=== PATIENT | female | born 1985 | race Caucasian/White ===

== ENCOUNTER 2019-05-16 18:54 | Emergency (ER) | payer MEDICAID, SELFPAY ==
[2019-05-16 19:10] VITALS: BP 116/72; PULSE 80; RESP 16; TEMP 36.9; O2SAT 99
--- NOTE | 2019-05-16 20:08 | ED.URI ---
HPI - URI/Sore Throat General Chief Complaint: Upper Respiratory Infection Stated Complaint: Poss Ear infection Source: patient and RN notes reviewed Mode of arrival: ambulatory Limitations: no limitations History of Present Illness HPI Narrative: 34 year old female who presents to [facility] with complaints of bilateral ear pain and rastafarian pain with nasal drainage for the past 3 weeks. Patient states that her ear pain has increased in intensity the past few days. Patient states that pain radiates from her ears to her bilateral temples at times, rates her pain 6/10 aching sensation. Patient denies any recent fevers chills or sweats, states does have history of sinus infections in the past and seasonal allergies. Patient states that she has been taking Mucinex for her symptoms with nasal drainage thin clear in color. Patient does admit to history of tobacco abuse of 1/2 ppd of cigarettes for past 25 years. MD elicited complaint: rhinorrhea, nasal congestion and other (ear pain) Pertinent past history: sinusitis and seasonal allergies Onset (ago): week(s) (3) Consistency: progressively worsening Severity: moderate Pain scale (0-10): 6 Description of mucous: clear Able to tolerate fluids by mouth: Yes Exacerbating factors: exertion and leaning forward Relieving factors: nothing Associated symptoms: rhinorrhea, nasal congestion, ear pain and other (temples bilaterally) Related Data Home Medications Medication Instructions Recorded Confirmed buspirone 10 mg PO BID 03/06/19 05/16/19 cetirizine [Zyrtec] 10 mg PO DAILY 03/06/19 05/16/19 escitalopram oxalate 20 mg PO DAILY 03/06/19 05/16/19 estradiol 2 mg PO DAILY 03/06/19 05/16/19 fluticasone propionate [Flonase 2 spray INTRANASAL DAILY 03/06/19 05/16/19 Allergy Relief] montelukast [Singulair] 10 mg PO DAILY 03/06/19 05/16/19 tamsulosin 0.4 mg PO EVERY OTHER DAY 03/06/19 05/16/19 Allergies Allergy/AdvReac Type Severity Reaction Status Date / Time latex Allergy Unknown RASH Verified 05/16/19 19:17 Review of Systems Review of Systems: Narrative: CONSTITUTIONAL: Denies recent fever, chills, or sweats. EYES: Denies visual changes, redness, or discharge. ENT positive rhinorrhea, congestion,no sore throat, bilateral otalgia. CARDIOVASCULAR: Denies chest pain, palpitations, or edema. RESPIRATORY: Denies cough or dyspnea. GASTROINTESTINAL: Denies abdominal pain, nausea, vomiting, or diarrhea. GENITOURINARY: Denies dysuria or hematuria. SKIN: Denies rash or itching. MUSCULOSKELETAL: Denies back pain, joint pain, or myalgia. NEUROLOGIC: rastafarian and frontal headache,no numbness, or weakness. PSYCHIATRIC:Positive anxiety denies depression. All systems reviewed & are unremarkable except as noted in HPI and below PMFSH Past Medical History Medical History (Updated 05/19/19 @ 15:53 by Lucrecia Watkins NP) Anxiety Bronchitis Seasonal allergies Sinusitis Urinary retention Surgical History Surgical History (Updated 05/19/19 @ 15:45 by Lucrecia Watkins NP) H/O tubal ligation H/O: hysterectomy S/P wisdom tooth extraction Social History Social History (Updated 05/19/19 @ 15:54 by Lucrecia Watkins NP) Smoking packs per day: 0.5 Smoking cigarettes per day: 10.0 Years smoked: 25 Smoking pack-years: 12.50 Smoking status: Current every day smoker Living arrangements: with family Gender identity (if verbalized by the patient): Female Comments At time of signature, agree with nursing past medical, surgical, social and family history. There is no relevant family history pertinent to the presenting complaint Exam Narrative: Exam Narrative: GENERAL: Well-appearing, well-nourished, and in no acute distress. HEAD: Normocephalic, atraumatic. EYES: PERRLA and EOMI. ENT: Nares red with clear rhinorrhea no epistaxis. Mucous membranes moist.Tm;s normal but with dull light reflex, throat pink with no lesions or exudate, no tonsil enlargement, post nasal drainage noted. ear pa
== END 2019-05-16 20:20 | disposition home or self-care (01) ==
PROVIDERS: Emergency Provider Registered Nurse
DX: J01.10 Acute frontal sinusitis, unspecified (principal); H92.03 Otalgia, bilateral; F17.210 Nicotine dependence, cigarettes, uncomplicated; F41.9 Anxiety disorder, unspecified
CPT/HCPCS: 99213; G0463

== ENCOUNTER 2019-07-02 19:43 | Emergency (ER) | payer OTHER, SELFPAY ==
[2019-07-02 20:05] VITALS: BP 111/72; PULSE 88; RESP 20; TEMP 36.8; O2SAT 100
--- NOTE | 2019-07-02 20:05 | ED.URI ---
HPI - URI/Sore Throat General Stated Complaint: sinus congestion Time Seen by Provider: 07/02/19 20:06 Source: patient History of Present Illness HPI Narrative: Patient here requesting a doctor's note. Patient states she missed the last 2 days due to her chronic sinusitis and bronchitis. Patient is here requesting a note to return to work tomorrow patient states she feels much better she is taken medication as prescribed for her chronic sinusitis and bronchitis. Patient denies any fever no shortness of breath and no chest pain no exposure to coronavirus and no recent travel. Patient does request a short spurts of prednisone for her chronic sinusitis. Related Data Home Medications Medication Instructions Recorded Confirmed buspirone 10 mg PO BID 03/06/19 05/16/19 cetirizine [Zyrtec] 10 mg PO DAILY 03/06/19 05/16/19 escitalopram oxalate 20 mg PO DAILY 03/06/19 05/16/19 estradiol 2 mg PO DAILY 03/06/19 05/16/19 fluticasone propionate [Flonase 2 spray INTRANASAL DAILY 03/06/19 05/16/19 Allergy Relief] montelukast [Singulair] 10 mg PO DAILY 03/06/19 05/16/19 tamsulosin 0.4 mg PO EVERY OTHER DAY 03/06/19 05/16/19 Allergies Allergy/AdvReac Type Severity Reaction Status Date / Time latex Allergy Unknown RASH Verified 05/16/19 19:17 Review of Systems Review of Systems: Narrative: CONSTITUTIONAL: Denies chills, or sweats. Reports fever and generalized body aches EYES: Denies visual changes, redness, or discharge. ENT: Denies otalgia. Reports nasal congestion runny nose and sore throat CARDIOVASCULAR: Denies chest pain, palpitations, or edema. RESPIRATORY: Denies dyspnea. Reports occasional cough GASTROINTESTINAL: Denies abdominal pain, nausea, vomiting, or diarrhea. GENITOURINARY: Denies dysuria or hematuria. SKIN: Denies rash or itching. MUSCULOSKELETAL: Denies back pain, joint pain, or myalgia. Reports generalized body aches NEUROLOGIC: Denies headache, numbness, or weakness. PSYCHIATRIC: Denies anxiety or depression. [facility] Past Medical History Medical History Anxiety Bronchitis Seasonal allergies Sinusitis Urinary retention Surgical History Surgical History H/O tubal ligation H/O: hysterectomy S/P wisdom tooth extraction Social History Social History Smoking packs per day: 0.5 Smoking cigarettes per day: 10.0 Years smoked: 25 Smoking pack-years: 12.50 Smoking status: Current every day smoker Gender identity (if verbalized by the patient): Female Comments At time of signature, agree with nursing past medical, surgical, social and family history. There is no relevant family history pertinent to the presenting complaint Exam Narrative: Exam Narrative: The patient is a well-developed, well-nourished in no acute distress. SKIN: Skin is warm and dry without erythema, swelling or exudate. There is good turgor. No tenting. HEAD: Atraumatic. Normocephalic. No temporal or scalp tenderness. EYES: Moist and bright. Sclera and conjunctivae normal. No discharge. PERRLA. Extraocular motions intact. Gross visual acuity intact. EARS: Pinna is normal shape and contour. Clear external auditory canals. TM pearly manning with good cone of light, no erythema or suppuration. Bilateral cerumen noted no gross hearing deficit. NOSE: pink, moist mucosa with good air movement. Clear rhinorrhea without nasal flaring. Septum midline. Mouth: moist mucous membranes. THROAT; mild erythema noted to posterior oropharynx with moderate postnasal drainage. Without exudate or ulceration.. Uvula midline. Normal movement of soft palate. NECK: Supple and nontender with full range of motion without discomfort. No meningeal signs. LUNGS: Equal and bilateral breath sounds without wheezes, rales or rhonchi. CHEST: The chest wall is without retractions or use of accessory muscles. H
== END 2019-07-02 20:15 | disposition home or self-care (01) ==
PROVIDERS: Emergency Provider Nurse Practitioner Family
DX: J06.9 Acute upper respiratory infection, unspecified (principal); F41.9 Anxiety disorder, unspecified; F17.210 Nicotine dependence, cigarettes, uncomplicated
CPT/HCPCS: 99213; G0463

== ENCOUNTER → 2021-05-04 16:49 | Outpatient (CLI) | payer OTHER, SELFPAY ==
--- NOTE | ~2021-05-04 | XR_ITS ---
EXAMINATION: XR chest 2V DATE: 05/04/2021 17:08 INDICATION: Pneumonia. Mid back pain. Chest tightness. TECHNIQUE: Frontal and lateral views of the chest were obtained. COMPARISON: None. FINDINGS: The chest demonstrates clear lungs without pneumonia, pleural effusion, or pneumothorax. Th e heart size is normal. IMPRESSION: 1. No acute cardiopulmonary disease. Reviewed, dictated and finalized at location A. MANAGER
== END ==
PROVIDERS: PCP Nurse Practitioner Family; Visit Provider Nurse Practitioner Family
DX: J18.9 Pneumonia, unspecified organism (principal)
CPT/HCPCS: 71046

== ENCOUNTER 2021-07-17 16:12 | Emergency (ER) | payer OTHER, SELFPAY ==
--- NOTE | 2021-07-17 16:14 | ED.SKABFB ---
HPI - Skin/Abscess/Foreign Bdy General Chief complaint: Skin/Abscess/Foreign Body Stated complaint: shingles Time Seen by Provider: 07/17/21 16:14 Source: patient and RN notes reviewed History of Present Illness HPI narrative: Patient is a 36-year-old female who presents the urgent care with complaints of a painful shingles rash to the left arm. Patient states that she has had shingles multiple times in the past and the Valtrex does seem to cleared up. Patient has not used anything [id number] for her symptoms. States that she just noted the rash today after having some itching to the arm. No other acute complaints. No acute distress noted. Patient aware of the plan of care. Some parts of this dictation were generated by voice recognition software and may contain typographical and/or grammatical inaccuracies. Related Data Home Medications Medication Instructions Recorded Confirmed buspirone 10 mg PO BID 03/06/19 07/17/21 cetirizine [Zyrtec] 10 mg PO DAILY 03/06/19 07/17/21 escitalopram oxalate 20 mg PO DAILY 03/06/19 07/17/21 estradiol 2 mg PO DAILY 03/06/19 07/17/21 fluticasone propionate [Flonase 2 spray INTRANASAL DAILY 03/06/19 07/17/21 Allergy Relief] montelukast [Singulair] 10 mg PO DAILY 03/06/19 07/17/21 tamsulosin 0.4 mg PO EVERY OTHER DAY 03/06/19 07/17/21 Allergies Allergy/AdvReac Type Severity Reaction Status Date / Time latex Allergy Unknown RASH Verified 07/17/21 16:29 Review of Systems Review of Systems: CONSTITUTIONAL: Denies fever, chills, or sweats. EYES: Denies visual changes, redness, or discharge. ENT: Denies rhinorrhea, congestion, sore throat, or otalgia. CARDIOVASCULAR: Denies chest pain, palpitations, or edema. RESPIRATORY: Denies cough or dyspnea. GASTROINTESTINAL: Denies abdominal pain, nausea, vomiting, or diarrhea. GENITOURINARY: Denies dysuria or hematuria. SKIN: Reports of a painful itchy shingles rash to the left arm MUSCULOSKELETAL: Denies back pain, joint pain, or myalgia. NEUROLOGIC: Denies headache, numbness, or weakness. All other systems reviewed are negative, except as documented in HPI. [facility] Past Medical History Medical History (Updated 07/17/21 @ 16:36 by EMERSON Huang) Anxiety Bronchitis Seasonal allergies Sinusitis Urinary retention Surgical History Surgical History H/O tubal ligation H/O: hysterectomy S/P wisdom tooth extraction Social History Social History Smoking packs per day: 0.5 Smoking cigarettes per day: 10.0 Years smoked: 25 Smoking pack-years: 12.50 Smoking status: Current every day smoker Gender identity (if verbalized by the patient): Female Comments At the time of my signature, I reviewed and agree with the nursing past medical, surgical, social, and family history. There is no relevant family history pertinent to the patient complaint. Exam Narrative: GENERAL: This is a well-nourished, well-developed patient, in no apparent distress. HEAD: normocephalic, atraumatic. EYES: PERRL. Sclera clear/white. Vision is grossly intact. EARS: External ears normal NOSE: External nose normal with no obvious nasal discharge, nares without redness, no rhinorrhea. THROAT: Mucous membranes moist NECK: Neck supple CARDIOVASCULAR: Regular rate and rhythm without murmurs, gallops, or rubs. RESPIRATORY: Clear to auscultation. Breath sounds equal bilaterally. No wheezes, rales, or rhonchi. SKIN: Linear track of mildly erythemic vesicular lesions to the left arm consistent with herpes zoster NEURO: awake, alert, and oriented to person, place and time. There were no obvious focal neurologic abnormalities. EXTREMITIES: No clubbing, cyanosis, or edema. Course Course Level of Care: Express Care Visit Vital Signs Vital signs: Vital Signs Temperature 97.6 F 07/17/21 16:22 Pulse Rate 85 07/17/21 16:22 Respiratory Rate 1
[2021-07-17 16:22] VITALS: BP 121/68; PULSE 85; RESP 16; TEMP 36.4; O2SAT 98
[2021-07-17 16:24] VITALS: BP 121/68; PULSE 85; RESP 16; TEMP 36.4; O2SAT 98
== END 2021-07-17 16:40 | disposition home or self-care (01) ==
PROVIDERS: Emergency Provider Nurse Practitioner Family; PCP Nurse Practitioner Family
DX: B02.9 Zoster without complications (principal); F17.210 Nicotine dependence, cigarettes, uncomplicated; F41.9 Anxiety disorder, unspecified
CPT/HCPCS: 99213; G0463

== ENCOUNTER 2021-10-31 18:51 | Emergency (ER) | payer OTHER, SELFPAY ==
[2021-10-31 19:02] VITALS: BP 111/68; PULSE 58; RESP 16; TEMP 36.4; O2SAT 100
--- NOTE | 2021-10-31 19:09 | ED.FEMALEGU ---
HPI - Female Genitourinary General Chief complaint: Urogenital-Female Stated complaint: Back pain near kidney location. Time Seen by Provider: 10/31/21 19:10 Source: patient and RN notes reviewed Mode of arrival: ambulatory Limitations: no limitations History of Present Illness HPI Narrative: 36-year-old female presents concern for 3-day history of bilateral flank pain, general malaise, sweats that is progressively worsening. She has a history of urine retention for which she has a neurostimulator to stimulate her pelvic floor. She also reports that she occasionally has to cath herself, she caths herself last night. She reports a history of pyelonephritis, for which she has similar symptoms. MD elicited complaint: UTI Related Data Home Medications Medication Instructions Recorded Confirmed cetirizine 10 mg capsule (Zyrtec) 10 mg PO DAILY 03/06/19 10/31/21 escitalopram oxalate 20 mg tablet 20 mg PO DAILY 03/06/19 10/31/21 estradiol 2 mg tablet 2 mg PO DAILY 03/06/19 10/31/21 fluticasone propionate 50 2 spray intranasal DAILY 03/06/19 07/17/21 mcg/actuation nasal spray,suspension (Flonase Allergy Relief) montelukast 10 mg tablet 10 mg PO DAILY 03/06/19 10/31/21 (Singulair) tamsulosin 0.4 mg capsule 0.4 mg PO EVERY OTHER DAY 03/06/19 07/17/21 Allergies Allergy/AdvReac Type Severity Reaction Status Date / Time latex Allergy Unknown RASH Verified 07/17/21 16:29 Review of Systems Review of Systems: CONSTITUTIONAL: Reports malaise, sweats. Denies chills or fever. CARDIOVASCULAR: Denies chest pain, palpitations, or edema. RESPIRATORY: Denies cough or dyspnea. GASTROINTESTINAL: Denies abdominal pain, nausea, vomiting, diarrhea GENITOURINARY: Reports dysuria, frequency, urgency, suprapubic pressure, hematuria. Reports bilateral flank pain SKIN: Denies rash or itching. MUSCULOSKELETAL: Denies back pain or myalgia. All systems reviewed & are unremarkable except as noted in HPI and below PMFSH Past Medical History Medical History (Updated 10/31/21 @ 19:26 by Radha Singh NP) Anxiety Bronchitis Seasonal allergies Sinusitis Urinary retention Surgical History Surgical History H/O tubal ligation H/O: hysterectomy S/P wisdom tooth extraction Social History Social History Smoking packs per day: 0.5 Smoking cigarettes per day: 10.0 Years smoked: 25 Smoking pack-years: 12.50 Smoking status: Current every day smoker Gender identity (if verbalized by the patient): Female Comments At time of signature, agree with nursing past medical, surgical, social and family history. There is no relevant family history pertinent to the presenting complaint Exam Narrative: GENERAL: Nontoxic appearing and in no acute distress. HEAD: Normocephalic. EYES: PERRLA, conjunctivae clear. NECK: Supple. No lymphadenopathy CHEST: Clear to auscultation. No respiratory distress. HEART: Regular rate and rhythm. ABDOMEN: Soft, nontender upon palpation, nondistended, normal active bowel sounds, no palpable or pulsatile masses, no guarding. BilateralCVA tenderness SKIN: Warm, dry, no rash. NEURO: Alert and oriented x3. PSYCH: Normal mood and affect Course Course Emergency Course: Based on patient's history, presentation, symptoms we will treat pending culture Patient is aware of diagnosis, understands and agrees to treatment plan. Anticipatory guidance given. Patient agrees to follow-up as directed and is aware of reasons to seek care at the emergency department. Portions of this record may have been created with voice recognition software Level of Care: Express Care Visit Vital Signs Vital signs: Reviewed. MDM - Female Genitourinary MDM Narrative Medical decision making narrative: Exam findings and UA show no acute concerns or changes; patient is non-toxic appearing and is in no distress. Patien
== END 2021-10-31 19:36 | disposition home or self-care (01) ==
PROVIDERS: Emergency Provider Nurse Practitioner; PCP Nurse Practitioner Family
DX: R10.9 Unspecified abdominal pain (principal); F41.9 Anxiety disorder, unspecified; F17.210 Nicotine dependence, cigarettes, uncomplicated
CPT/HCPCS: 81003; 87086; 99213; G0463

== ENCOUNTER 2022-03-03 19:00 | Emergency (ER) | payer OTHER, SELFPAY ==
[2022-03-03 19:03] VITALS: BP 116/73; PULSE 77; RESP 14; TEMP 37.7; O2SAT 99
--- NOTE | 2022-03-03 19:22 | ED.URI ---
HPI - URI/Sore Throat General Chief Complaint: Upper Respiratory Infection Stated Complaint: Sinus infection Time Seen by Provider: 03/03/22 19:12 Source: patient Mode of arrival: ambulatory Limitations: no limitations History of Present Illness HPI Narrative: Patient presents today with 2 week history of nasal congestion and sinus pressure, postnasal drip, bilateral ear pressure, fatigue, cough. Denies shortness of breath or fever. She is taking Zyrtec, Benadryl, and Mucinex with mild relief. Denies a history of asthma or COPD. Smokes 1 pack per day. She has had her vaccine for COVID-19 and influenza. Related Data Home Medications Medication Instructions Recorded Confirmed cetirizine 10 mg capsule (Zyrtec) 10 mg PO DAILY 03/06/19 03/03/22 escitalopram oxalate 20 mg tablet 20 mg PO DAILY 03/06/19 03/03/22 estradiol 2 mg tablet 2 mg PO DAILY 03/06/19 03/03/22 fluticasone propionate 50 2 spray intranasal DAILY 03/06/19 03/03/22 mcg/actuation nasal spray,suspension (Flonase Allergy Relief) montelukast 10 mg tablet 10 mg PO DAILY 03/06/19 03/03/22 (Singulair) aripiprazole 5 mg tablet 5 mg PO DAILY 03/03/22 03/03/22 Allergies Allergy/AdvReac Type Severity Reaction Status Date / Time latex Allergy Unknown RASH Verified 03/03/22 19:05 Review of Systems Review of Systems: CONSTITUTIONAL: Denies body aches, fever, chills, or sweats.+ fatigue EYES: Denies visual changes, redness, or discharge. ENT: Denies rhinorrhea, sore throat. + nasal congestion and sinus pressure, postnasal drip, bilateral ear pressure CARDIOVASCULAR: Denies chest pain, palpitations, or edema. RESPIRATORY: Denies dyspnea.+ cough GASTROINTESTINAL: Denies abdominal pain, nausea, vomiting, or diarrhea. GENITOURINARY: Denies dysuria or hematuria. SKIN: Denies rash, itching, or wounds. MUSCULOSKELETAL: Denies back pain, joint pain, or myalgia. NEUROLOGIC: Denies headache, numbness, tingling, or weakness. PSYCH: Denies depression or anxiety. [facility] Past Medical History Medical History (Updated 03/03/22 @ 19:25 by Yana Muhammad SITE SURVEYOR, ) Anxiety Bronchitis Seasonal allergies Sinusitis Urinary retention Surgical History Surgical History H/O tubal ligation H/O: hysterectomy S/P wisdom tooth extraction Social History Social History Smoking packs per day: 0.5 Smoking cigarettes per day: 10.0 Years smoked: 25 Smoking pack-years: 12.50 Smoking status: Current every day smoker Gender identity (if verbalized by the patient): Female Comments At time of signature, I have reviewed and agree with nursing past medical, surgical, social and family history unless otherwise noted. Please see nursing chart for further information. There is no relevant family history pertinent to the presenting complaint Exam Narrative: GENERAL: Mildly ill-appearing, well-nourished, and in no acute distress. HEAD: Normocephalic, atraumatic. EYES: EOMI. No redness or drainage. Conjunctivae normal. ENT: Mucous membranes pink and moist. Nares congested. Left frontal and bilateral maxillary sinus tenderness. No rhinorrhea. TMs normal bilaterally. Throat normal. Uvula midline. NECK: Normal AROM. Supple. No lymphadenopathy. CHEST: No respiratory distress. Clear to auscultation. HEART: Regular rate and rhythm. No murmur appreciated. Normal peripheral pulses. EXTREMITIES: Normal range of motion. No edema. SKIN: Warm, dry, no rash. Capillary refill normal. Normal skin turgor. NEURO: No focal deficits. Alert and oriented x3. Gait steady. PSYCH: Normal affect. No signs of depression or anxiety. Course Course Level of Care: Express Care Visit Vital Signs Vital signs: Vital Signs Temperature 99.9 F H 03/03/22 19:03 Pulse Rate 77 03/03/22 19:03 Respiratory Rate 14 03/03/22 19:03 Blood Pressure 116/73
[2022-03-03 19:23] VITALS: BP 116/73; PULSE 77; RESP 14; TEMP 37.7; O2SAT 99
== END 2022-03-03 19:30 | disposition home or self-care (01) ==
PROVIDERS: Emergency Provider Nurse Practitioner; PCP Nurse Practitioner Family
DX: J01.90 Acute sinusitis, unspecified (principal); J20.9 Acute bronchitis, unspecified; F17.210 Nicotine dependence, cigarettes, uncomplicated; F41.9 Anxiety disorder, unspecified
CPT/HCPCS: 99213; G0463

== ENCOUNTER 2022-06-06 17:58 | Emergency (ER) | payer OTHER, SELFPAY ==
[2022-06-06 18:02] VITALS: BP 105/62; PULSE 65; RESP 16; TEMP 36.6; O2SAT 97
--- NOTE | 2022-06-06 19:15 | ED.URI ---
HPI - URI/Sore Throat General Chief Complaint: Upper Respiratory Infection Stated Complaint: Eye Problem Time Seen by Provider: 06/06/22 19:02 Source: patient, RN notes reviewed and old records reviewed Mode of arrival: ambulatory Limitations: no limitations History of Present Illness HPI Narrative: 37-year-old female presents to Express Care is a complaints of crusty itchy eyes, with discharge and irritation for 2 week duration. Patient was diagnosed with strep throat on the 20 of May and eyes have been irritated with drainage and itching since but reports that drainage has improved. Patient denies any visual changes any redness around eyes or any sinus congestion or runny nose or any fevers. Patient reports that she completed all doses of antibiotic for strep and she takes daily Singulair and Zyrtec. MD elicited complaint: other (eyes itching with discharge and irritaion) Onset (ago): week(s) (2) Related Data Home Medications Medication Instructions Recorded Confirmed cetirizine 10 mg capsule (Zyrtec) 10 mg PO DAILY 03/06/19 06/06/22 montelukast 10 mg tablet 10 mg PO DAILY 03/06/19 06/06/22 (Singulair) Allergies Allergy/AdvReac Type Severity Reaction Status Date / Time latex Allergy Unknown RASH Verified 06/06/22 18:29 Review of Systems Review of Systems: CONSTITUTIONAL: Denies fever, chills, or sweats. EYES: Denies visual changes. Reports redness,, irritation, discharge to bilateral eyes with itching ENT: Denies rhinorrhea, congestion, sore throat, or otalgia. CARDIOVASCULAR: Denies chest pain, palpitations, or edema. RESPIRATORY: Denies cough or dyspnea. SKIN: Denies rash or itching. NEUROLOGIC: Denies headache All systems reviewed & are unremarkable except as noted in HPI and below PMFSH Past Medical History Medical History (Updated 06/08/22 @ 08:56 by Lucrecia Watkins NP) Anxiety Bronchitis Seasonal allergies Sinusitis Urinary retention Surgical History Surgical History H/O tubal ligation H/O: hysterectomy S/P wisdom tooth extraction Social History Social History Smoking packs per day: 0.5 Smoking cigarettes per day: 10.0 Years smoked: 25 Smoking pack-years: 12.50 Smoking status: Current every day smoker Living arrangements: with family Gender identity (if verbalized by the patient): Female Comments At time of signature, agree with nursing past medical, surgical, social and family history. There is no relevant family history pertinent to the presenting complaint Exam Narrative: GENERAL: Well-appearing, well-nourished, and in no acute distress. HEAD: Normocephalic, atraumatic. EYES: PERRLA and EOMI. Upper and lower eyelids unremarkable. No periorbital cellulitis noted. Sclera and conjunctivae mildly injected, reports itching, crusting ENT: Nares clear, no rhinorrhea or epistaxis. Mucous membranes moist. TM's normal with good light reflex, throat pink with no lesions or swelling. NECK: Supple.no lymphadenopathy CHEST: Clear to auscultation. No respiratory distress.SAO2 97% on room air HEART: Regular rate and rhythm. No murmur heard. Normal peripheral pulses. SKIN: Warm, dry, no rash. NEURO: No focal deficits. Alert and oriented x3. Course Course Emergency Course: Patient is aware of diagnosis, understands and agrees to treatment plan. Anticipatory guidance given. Patient agrees to follow-up as directed and is aware of reasons to seek care at the emergency department. Portions of this record may have been created with voice recognition software Level of Care: Express Care Visit Vital Signs Vital signs: Vital Signs Temperature 36.6 C 06/06/22 18:02 Pulse Rate 65 06/06/22 18:02 Respiratory Rate 16 06/06/22 18:02 Blood Pressure 105/62 06/06/22 18:02 Pulse Oximetry 97 06/06/22 18:02 Oxygen Delivery Room Air 06/06/22 18:02
== END 2022-06-06 19:47 | disposition home or self-care (01) ==
PROVIDERS: Emergency Provider Registered Nurse; PCP Nurse Practitioner Family
DX: H10.9 Unspecified conjunctivitis (principal); F17.210 Nicotine dependence, cigarettes, uncomplicated
CPT/HCPCS: 99213; G0463

== ENCOUNTER 2023-01-16 18:11 | Emergency (ER) | payer OTHER, SELFPAY ==
[2023-01-16 18:41] VITALS: BP 120/70; PULSE 60; RESP 16; TEMP 36.4; O2SAT 97
--- NOTE | 2023-01-16 19:49 | ED.FEMALEGU ---
HPI - Female Genitourinary General Chief complaint: Urogenital-Female Stated complaint: Flank Pain/Urinary Problem Time Seen by Provider: 01/16/23 19:49 Source: patient, RN notes reviewed and old records reviewed Mode of arrival: ambulatory Limitations: no limitations History of Present Illness HPI Narrative: 37 year old female presents to express care with complaints of left flank pain and urinary burning and frequency since this morning. Patient has history of urinary retention and has 'blader pacemaker' implant. Patient reports that she has history of Pyelonephritis in the past also history of past UTI's. Patient voices no vaginal discharge or concern for STD's Patient has taken Ibuproen with minimal decrease in her discomfort. MD elicited complaint: UTI Pertinent past history: pyelonephritis and other (UTI, has interstime ) Onset (ago): day(s) (1) Severity: moderate Severity scale (1-10): 5 Quality of pain: aching Vaginal discharge: none Vaginal bleeding: none Related Data Home Medications Medication Instructions Recorded Confirmed cetirizine 10 mg capsule (Zyrtec) 10 mg PO DAILY 03/06/19 06/06/22 montelukast 10 mg tablet 10 mg PO DAILY 03/06/19 06/06/22 (Singulair) atorvastatin 10 mg tablet mg 01/16/23 escitalopram oxalate 20 mg tablet mg 01/16/23 estradiol 2 mg tablet mg 01/16/23 ibuprofen 800 mg tablet mg 01/16/23 lamotrigine 25 mg tablet mg 01/16/23 tramadol 50 mg tablet mg 01/16/23 trazodone 50 mg tablet mg 01/16/23 Allergies Allergy/AdvReac Type Severity Reaction Status Date / Time latex Allergy Unknown RASH Verified 06/06/22 18:29 Review of Systems Review of Systems: CONSTITUTIONAL: Denies fever, chills, or sweats. CARDIOVASCULAR: Denies chest pain, palpitations, or edema. RESPIRATORY: Denies cough or dyspnea. GASTROINTESTINAL: Denies abdominal pain, nausea, vomiting, or diarrhea. GENITOURINARY: Reports dysuria, frequency, urgency. reports left flank pain no visible hematuria. SKIN: Denies rash or itching. MUSCULOSKELETAL: Denies back pain or myalgia. Reports left CVA tenderness NEUROLOGIC: Denies headache All systems reviewed & are unremarkable except as noted in HPI and below [facility] Past Medical History Medical History Anxiety Bronchitis Pyelonephritis Seasonal allergies Sinusitis Urinary retention Surgical History Surgical History H/O tubal ligation H/O: hysterectomy S/P wisdom tooth extraction Social History Social History Smoking packs per day: 0.5 Smoking cigarettes per day: 10.0 Years smoked: 25 Smoking pack-years: 12.50 Smoking status: Current every day smoker Living arrangements: with family Gender identity (if verbalized by the patient): Female Comments At time of signature, agree with nursing past medical, surgical, social and family history. There is no relevant family history pertinent to the presenting complaint Exam Narrative: GENERAL: Well-appearing, well-nourished, and in no acute distress. HEAD: Normocephalic, atraumatic. NECK: Supple.no lymphadenopathy CHEST: Clear to auscultation. No respiratory distress.SAO2 97% on room air HEART: Regular rate and rhythm. No murmur heard. Normal peripheral pulses. ABDOMEN: Soft, nontender, nondistended, normal active bowel sounds. Left CVA tenderness urinary burning and frequency EXTREMITIES: Normal range of motion. No edema. SKIN: Warm, dry, no rash. NEURO: No focal deficits. Alert and oriented x3. Course Course Emergency Course: Patient is aware of diagnosis, understands and agrees to treatment plan.? Anticipatory guidance given.? Patient agrees to follow-up as directed and is aware of reasons to seek care at the emergency department. Portions of this record may have been created with voice recognition software Level of Care: E
== END 2023-01-16 20:23 | disposition home or self-care (01) ==
PROVIDERS: Emergency Provider Registered Nurse; PCP Nurse Practitioner Family
DX: R10.9 Unspecified abdominal pain (principal); R30.0 Dysuria; F17.210 Nicotine dependence, cigarettes, uncomplicated
CPT/HCPCS: 81003; 87086; 99213; G0463

== ENCOUNTER 2023-06-27 08:26 | Emergency (ER) | payer OTHER, SELFPAY ==
[2023-06-27 08:33] VITALS: BP 111/70; PULSE 95; RESP 16; TEMP 37.2; O2SAT 98
--- NOTE | 2023-06-27 09:18 | ED.SKABFB ---
HPI - Skin/Abscess/Foreign Bdy General Chief complaint: Skin/Abscess/Foreign Body Stated complaint: alergic reaction/hives Time Seen by Provider: 06/27/23 09:18 Source: patient, RN notes reviewed and old records reviewed Mode of arrival: ambulatory Limitations: no limitations History of Present Illness HPI narrative: 38 year old female who [facility] care with complaints of generalized itchy rash especially to her lower extremities since yesterday.Patient reports that she thinks it could be an allergic reaction to either Ampicillin or Vancomycin she received a week ago IV for 24 hours when when had a replacement surgery for inner stem neurostimulator at [facility] for pelvic floor failure. Patient reports that she has not had any other new medications orally or any new foods, soaps, laundry products or lotions. Patient reports that she has been taking Benadryl,Zyrtec and is on daily Singulair. Patient reports that she has no difficulty with swallowing or with her breathing,SAO2 98% on room air. MD complaint: rash Onset (ago): day(s) (day 2) Severity: moderate Quality: pruritic Treatments prior to arrival: Benadryl and other (Zyrtec and singulair) Related Data Home Medications Medication Instructions Recorded Confirmed montelukast 10 mg tablet 10 mg PO DAILY 03/06/19 06/27/23 (Singulair) atorvastatin 10 mg tablet 10 mg PO DAILY 01/16/23 06/27/23 lamotrigine 25 mg tablet 25 mg PO BID 01/16/23 06/27/23 trazodone 50 mg tablet 50 mg PO HS 01/16/23 06/27/23 cyclobenzaprine 5 mg tablet 5 mg PO Q6-8H PRN Muscle Pain 06/27/23 06/27/23 meloxicam 15 mg tablet mg 06/27/23 Allergies Allergy/AdvReac Type Severity Reaction Status Date / Time latex Allergy Unknown RASH Verified 06/06/22 18:29 Review of Systems Review of Systems: CONSTITUTIONAL: Denies fever, chills, or sweats. CARDIOVASCULAR: Denies chest pain, palpitations, or edema. RESPIRATORY: Denies cough or dyspnea. SKIN: Reports small red raised rash generalized rash to lower extremities and to her forearms which is itchy MUSCULOSKELETAL: Denies joint pain or myalgia. NEUROLOGIC: Denies headache, numbness, or weakness. All systems reviewed & are unremarkable except as noted in HPI and below PMFSH Past Medical History Medical History (Updated 06/28/23 @ 08:45 by Lucrecia Watkins NP) Anxiety Bronchitis Pelvic floor dysfunction in female Presence of neurostimulator Pyelonephritis Seasonal allergies Sinusitis Urinary retention Surgical History Surgical History H/O tubal ligation H/O: hysterectomy S/P wisdom tooth extraction Social History Social History (Updated 06/28/23 @ 08:37 by Lucrecia Watkins NP) Smoking packs per day: 0.5 Smoking cigarettes per day: 10.0 Years smoked: 25 Smoking pack-years: 12.50 Smoking status: Current every day smoker Tobacco type: cigarettes and e-cigarettes/vaping Additional smoking assessment comments: now vapes Living arrangements: with family Gender identity (if verbalized by the patient): Female Comments At time of signature, agree with nursing past medical, surgical, social and family history. There is no relevant family history pertinent to the presenting complaint Exam Narrative: GENERAL: Well-appearing, well-nourished, and in no acute distress. HEAD: Normocephalic, atraumatic. EYES: PERRLA, conjunctivae clear, and EOMI. ENT: Mucous membranes moist. Oropharynx without edema, erythema or lesions. NECK: Supple. No lymphadenopathy CHEST: Clear to auscultation. No respiratory distress.SAO2 98% on room air, no tachypnea HEART: Regular rate and rhythm. SKIN: Warm, dry.? Patches of red raised rash especially to lower extremities and on arms which is itchy NEURO:? Alert and oriented x3. PSYCH: Normal mood and affect, anxious Course Course Emergency Course: Patient is aware of diagnosis, understands and agrees to t
[2023-06-27] MEDS: methylPREDNISolone ACETATE 80 MG/ML VIAL IM (09:32)
== END 2023-06-27 09:55 | disposition home or self-care (01) ==
PROVIDERS: Emergency Provider Registered Nurse; PCP Nurse Practitioner Family
DX: T78.40XA Allergy, unspecified, initial encounter (principal); F17.210 Nicotine dependence, cigarettes, uncomplicated; Z79.899 Other long term (current) drug therapy; Z79.1 Long term (current) use of non-steroidal anti-inflammatories (NSAID)
CPT/HCPCS: 96372; 99213; G0463; J1040

== ENCOUNTER 2024-01-20 13:35 | Emergency (ER) | payer OTHER, SELFPAY ==
[2024-01-20 13:40] VITALS: BP 121/77; PULSE 79; RESP 18; TEMP 36.8; O2SAT 98
--- NOTE | 2024-01-20 13:53 | ED.URI ---
HPI - URI/Sore Throat General Chief Complaint: Upper Respiratory Infection Stated Complaint: Ear Pain/Sore Throat/Congestion Time Seen by Provider: 01/20/24 13:52 Source: patient, RN notes reviewed and old records reviewed Mode of arrival: ambulatory Limitations: no limitations History of Present Illness HPI Narrative: 38 year old female who presents to [facility] care with complaints of 2 week duration of ear pain, sinus congestion and drainage, headaches, some vertigo,hurts to chew even. Patient reports that she initially thought was allergies but symptoms have progressed. Patient reports that she has been taking Mucinex and also Zyrtec for her symptoms without resolution or improvement. Patient reports no fevers chills or sweats, denies any shortness of breath or any productive cough. MD elicited complaint: sore throat, rhinorrhea, nasal congestion, sinus pain and other (headache and ear pain) Pertinent past history: sinusitis and seasonal allergies Onset (ago): week(s) (2) Pain scale (0-10): 8 Description of mucous: yellow Able to tolerate fluids by mouth: Yes Treatments prior to arrival: other (Mucinex, and Zyrtec on daily singulair) Related Data Home Medications Medication Instructions Recorded Confirmed montelukast 10 mg tablet 10 mg PO DAILY 03/06/19 01/20/24 (Singulair) atorvastatin 10 mg tablet 10 mg PO DAILY 01/16/23 01/20/24 lamotrigine 25 mg tablet 25 mg PO BID 01/16/23 01/20/24 trazodone 50 mg tablet 50 mg PO HS 01/16/23 01/20/24 bupropion HCl 150 mg 24 hr tablet, 150 mg PO DAILY 01/20/24 01/20/24 extended release escitalopram oxalate 5 mg tablet 5 mg PO DAILY 01/20/24 01/20/24 Allergies Allergy/AdvReac Type Severity Reaction Status Date / Time latex Allergy Unknown RASH Verified 01/20/24 13:59 Review of Systems Review of Systems: CONSTITUTIONAL: Reports malaise, no chills, sweats, or fever. EYES: Denies visual changes, redness, or discharge. ENT: Reports rhinorrhea, congestion, sinus pain, otalgia and sore throat. CARDIOVASCULAR: Denies chest pain, palpitations, or edema. RESPIRATORY: Reports no cough.? Denies dyspnea. GASTROINTESTINAL: Denies abdominal pain, nausea, vomiting, diarrhea SKIN: Denies rash or itching. MUSCULOSKELETAL: Denies myalgia. NEUROLOGIC: positive for frontal headache. All systems reviewed & are unremarkable except as noted in HPI and below PMFSH Past Medical History Medical History Anxiety Bronchitis Pelvic floor dysfunction in female Presence of neurostimulator Pyelonephritis Seasonal allergies Sinusitis Urinary retention Surgical History Surgical History H/O tubal ligation H/O: hysterectomy S/P wisdom tooth extraction Social History Social History Smoking packs per day: 0.5 Smoking cigarettes per day: 10.0 Years smoked: 25 Smoking pack-years: 12.50 Smoking status: Current every day smoker Tobacco type: cigarettes and e-cigarettes/vaping Additional smoking assessment comments: now vapes Living arrangements: with family Gender identity (if verbalized by the patient): Female Comments At time of signature, agree with nursing past medical, surgical, social and family history. There is no relevant family history pertinent to the presenting complaint Exam Narrative: GENERAL: Well-appearing, well-nourished, and in no acute distress. HEAD: Normocephalic EYES: PERRLA, conjunctivae clear ENT: Nares clear, turbinates edematous and erythematous, yellowish discharge, sinus pain frontal headaches. Mucous membranes moist. TM pearly becker with dull light reflex bilaterally; no tragal tenderness. Oropharynx erythematous without lesions. Tonsils not enlarged and without exudate, no drooling, no hoarseness, no trismus, uvula midline.post nasal dischrge NECK: Supple. No lym
== END 2024-01-20 14:20 | disposition home or self-care (01) ==
PROVIDERS: Emergency Provider Registered Nurse; PCP Nurse Practitioner Family
DX: J32.9 Chronic sinusitis, unspecified (principal); F17.290 Nicotine dependence, other tobacco product, uncomplicated; F41.9 Anxiety disorder, unspecified
CPT/HCPCS: 99213; G0463

== ENCOUNTER 2024-04-05 10:15 | Emergency (ER) | payer OTHER, SELFPAY ==
[2024-04-05 10:27] VITALS: BP 97/64; PULSE 81; RESP 18; TEMP 37; O2SAT 97
[2024-04-05 10:55] LABS: EDSTREPNEGPOS1 Negative (Negative)
--- NOTE | 2024-04-05 11:02 | ED_ITS ---
HPI - URI/Sore Throat General Chief Complaint: Upper Respiratory Infection Stated Complaint: Sinus Congestion/Sore Throat Time Seen by Provider: 04/05/24 10:55 Source: patient, RN notes reviewed and old records reviewed Mode of arrival: ambulatory Limitations: no limitations History of Present Illness HPI Narrative: 39 year old female presents to the [facility] care with complaints of sinus congestion and drainage and sore throat. Patient reports that she was treated in January for sinus symptoms and sore throat with antibiotics but doesn;t feel it ever went away completely. Patient states that her symptoms have increased in the past 2 weeks with sinus drainage ,facial pain, and sore throat started yesterday. she states that her eye feel red and itchy today.She states that she does have history of asthma denies any shortness of breath or any acute cough. Patient has been taking Flonase ,sinus rinse,Mucinex, Zyrtec and Singulair daily with no improvement in her symptoms. MD elicited complaint: sore throat, rhinorrhea, nasal congestion and sinus pain Onset (ago): week(s) (increased symtoms 2 weeks) Severity: moderate Able to tolerate fluids by mouth: Yes Treatments prior to arrival: other (Zyrtec, singulair, mucinex, Flonase and sinus rinse) Related Data Home Medications ?Medication ?Instructions ?Recorded ?Confirmed ?Last Taken ?Type montelukast 10 mg tablet 10 mg PO DAILY 03/06/19 04/05/24 Unknown History (Singulair) atorvastatin 10 mg tablet 10 mg PO DAILY 01/16/23 04/05/24 Unknown History lamotrigine 25 mg tablet 25 mg PO BID 01/16/23 04/05/24 Unknown History trazodone 50 mg tablet 50 mg PO HS 01/16/23 04/05/24 Unknown History bupropion HCl 150 mg 24 hr tablet, 150 mg PO DAILY 01/20/24 04/05/24 Unknown History extended release escitalopram oxalate 5 mg tablet 5 mg PO DAILY 01/20/24 04/05/24 Unknown History cetirizine 10 mg tablet (24Hour 10 mg PO DAILY PRN allergy symptoms 04/05/24 04/05/24 Unknown History Allergy) estradiol 2 mg tablet mg 04/05/24 Unknown History fluticasone propionate 50 intranasal 04/05/24 Unknown History mcg/actuation nasal spray,suspension Allergies Allergy/AdvReac Type Severity Reaction Status Date / Time latex Allergy Unknown RASH Verified 04/05/24 10:17 Review of Systems Review of Systems: CONSTITUTIONAL: Reports malaise, no chills, sweats, or fever. EYES: Denies visual changes, redness, or discharge. ENT: Reports rhinorrhea, congestion, positive sinus pain, no otalgia and positive sore throat. CARDIOVASCULAR: Denies chest pain, palpitations, or edema. RESPIRATORY: Reports occasional dry cough.? Denies dyspnea. GASTROINTESTINAL: Denies abdominal pain, nausea, vomiting, diarrhea SKIN: Denies rash or itching. MUSCULOSKELETAL: Denies myalgia. NEUROLOGIC: Denies acute headache. All systems reviewed & are unremarkable except as noted in HPI and below PMFSH Past Medical History Medical History Pelvic floor dysfunction in female Presence of neurostimulator Pyelonephritis Anxiety Urinary retention Bronchitis Sinusitis Seasonal allergies Surgical History Surgical History S/P wisdom tooth extraction H/O tubal ligation H/O: hysterectomy Social History Social History Smoking packs per day: 0.5 Smoking cigarettes per day: 10.0 Years smoked: 25 Smoking pack-years: 12.50 Smoking status: Current every day smoker Tobacco type: cigarettes and e-cigarettes/vaping Additional smoking assessment comments: now vapes Living arrangements: with family Gender identity (if verbalized by the patient): Female Comments At time of signature, agree with nursing past medical, surgical, social and family history. There is no relevant family history pertinent to the presenting complaint Exam Narrative: GENERAL: Well-appearing, well-nourished, and in no acute distress. HEAD: Normocephalic EYES: PERRLA, conjunctivae clear ENT: Nares clear, turbinates edematous and erythematous, clear discharge, facial pressure. Mucous membranes moist. TM pearly becker with dull light reflex bilaterally; no tragal tenderness. Oropharynx erythematous without lesions. Tonsils not enlarged and without exudate, no drooling, no hoarseness, no trismus, uvula midline.post nasal drainage present NECK: Supple. No lymphadenopathy CHEST: Clear to auscultation, breath sounds equal. No wheezing, rhonchi, rales, or stridor. No respiratory distress, speaks in full sentences.occasional dry cough,SAO2 97% on room air HEART: Regular rate and rhythm. No murmur heard. SKIN: Warm, dry, no rash. NEURO: Alert and oriented x3. PSYCH: Normal mood and affect Course Course Emergency Course: Patient is aware of diagnosis, understands and agrees to treatment plan.? Anticipatory guidance given.? Patient agrees to follow-up as directed and is aware of reasons to seek care at the emergency department. Portions of this record may have been created with voice recognition software Level of Care: Express Care Visit Vital Signs Vital signs: Vital Signs Temperature 37.0 C 04/05/24 10:27 Pulse Rate 81 04/05/24 10:27 Respiratory Rate 18 04/05/24 10:27 Blood Pressure 97/64 L 04/05/24 10:27 Pulse Oximetry 97 04/05/24 10:27 Oxygen Delivery Room Air 04/05/24 10:27 Temperature 37.0 C 04/05/24 10:27 Pulse Rate 81 04/05/24 10:27 Respiratory Rate 18 04/05/24 10:27 Blood Pressure 97/64 L 04/05/24 10:27 Pulse Oximetry 97 04/05/24 10:27 Oxygen Delivery Room Air 04/05/24 10:27 Reviewed MDM - URI/Sore Throat MDM Narrative Medical decision making narrative: Differential diagnosis considered: Borjas virus, strep pharyngitis, allergic rhinitis, upper respiratory tract infection, sinusitis, rhinosinusitis, nasopharyngitis. viral pharyngitis, otitis media, otitis externa, pneumonia, bronchitis, viral cough syndrome, viral syndrome, and influenza.? Exam findings show no acute concerns or changes; patient is non-toxic appearing and is in no distress.? Patient is appropriate for outpatient treatment and follow-up. Differential Diagnosis Differential diagnosis: Likely upper respiratory infection, sinusitis, viral infection, pharyngitis and other (strep pharyngitis) Medical Records Attestation: I reviewed the patient's medical records. Lab Data Attestation: I reviewed the patient's lab results. Lab results narrative: strep screen negative,culture sent Labs: Lab Results 04/05/24 Range/Units 10:53 POC Grp A Strep Screen Negative (Negative) Critical Care Time Critical Care Time Critical Care Time: No Discharge Plan Discharge Clinical Impression: Bacterial sinusitis Sinusitis Qualifiers: Sinusitis location: frontal Chronicity: acute Recurrence: non-recurrent Qualified Code(s): J01.10 - Acute frontal sinusitis, unspecified Patient Disposition: Home, Self-Care Condition: Stable Instructions: Antibiotic Form, Sinusitis (ED) Additional Instructions: Increase fluids especially juices and water [id number] cough and cold medicine of your choice for your symptoms Tylenol or ibuprofen for any fever pain Zyrtec Claritin or Ashanti daily may include plain Sudafed in a.m. and p.m. Steroids as directed--take with food heat to the face 20-30 minutes 4-6 times a day for pain Salt water gargles, throat lozenges or throat sprays as desired Antibiotic as directed--finished the medication If your symptoms persist, change or worsen significantly before you can contact your personal physician then please, without delay, go to the emergency department for further evaluation. Follow-up with PCP in 7-10 days or sooner if needed Patient Language: Lebanese Prescriptions: New azithromycin 500 mg tablet 500 mg PO DAILY 5 Days Qty: 5 0RF methylprednisolone [Medrol (Dick)] 4 mg tablets,dose pack See Rx Instructions .ROUTE .COMPLEX Qty: 21 0RF Rx Instructions: orally per package directions No Action montelukast [Singulair] 10 mg Tablet 10 mg PO DAILY trazodone 50 mg tablet 50 mg PO HS atorvastatin 10 mg tablet 10 mg PO DAILY lamotrigine 25 mg tablet 25 mg PO BID bupropion HCl 150 mg tablet extended release 24 hr 150 mg PO DAILY escitalopram oxalate 5 mg tablet 5 mg PO DAILY prednisone 20 mg tablet 40 mg PO DAILY Qty: 10 0RF Rx Instructions: take with food in the morning estradiol 2 mg tablet fluticasone propionate 50 mcg/actuation spray,suspension INTRANASAL cetirizine [24Hour Allergy] 10 mg tablet 10 mg PO DAILY PRN (Reason: allergy symptoms) Follow-up/Referrals: Anton,Judith Cee APN [Primary Care Provider] - Time of Disposition: 11:16 Quality [place] Scale Eyes: Open Verbal: Oriented and Alert Motor: Follows Commands [place] Total Score: 15
--- OUTSIDE RECORDS SUMMARY | 2024-04-12 13:17 | XMS_ITS | Referral Summary ---
Author Organization [facility] Address [address] [place] [address] Care Team Providers Care Rejected Items Clerk Name Role Phone Judith Walton NP Primary Care Provider [phone] Khushbu Phan Unavailable [phone] Allergies Active Allergy Reactions Criticality Noted Date Comments Latex Hives,Shortness of breath High 05/26/2020 Medications omeprazole (PriLOSEC) 10 mg capsuleIndicati ons:acid reflux Take 1 capsule (10 mg total) by mouth nightly Active cetirizine (ZyrTEC) 10 mg tabletIndicatio ns:Allergic Rhinitis Take 1 tablet (10 mg total) by mouth nightly Active albuterol HFA (PROVENTIL HFA,VENTOLIN HFA,PROAIR HFA) 90 mcg/actuation inhalerIndicati ons:Acute Asthma Attack,mild Inhale 2 puffs every 6 (six) hours as needed for wheezing or shortness of breath Active fluticasone propionate (FLONASE) 50 mcg/actuation nasal sprayIndication s:Allergic Rhinitis Administer 2 sprays into affected nostril(s) as needed for allergies Active montelukast (SINGULAIR) 10 mg tabletIndicatio ns:Seasonal Allergic Rhinitis Take 1 tablet (10 mg total) by mouth nightly 1 Active lamoTRIgine (LaMICtal) 25 mg tabletIndicatio ns:Mood Take 2 tablets (50 mg total) by mouth nightly 3 Active traZODone (DESYREL) 50 mg tabletIndicatio ns:insomnia associated with depression Take 1 tablet (50 mg total) by mouth nightly at bedtime 3 Active atorvastatin (LIPITOR) 10 mg tabletIndicatio ns:hyperlipidem ia Take 1 tablet (10 mg total) by mouth nightly 3 Active ibuprofen (ADVIL,MOTRIN) 800 mg tabletIndicatio ns:Pain Take 1 tablet (800 mg total) by mouth 3 (three) times a day as needed for pain 3 Active escitalopram (LEXAPRO) 5 mg tabletIndicatio ns:Anxiety with Depression Take 1 tablet (5 mg total) by mouth nightly 3 Active buPROPion XL (WELLBUTRIN XL) 150 mg 24 hr tabletIndicatio ns:Anxiety with Depression Take 1 tablet (150 mg total) by mouth every morning 3 Active ascorbic acid (vitamin C) 1,000 mg tabletIndicatio ns:supplement Take 1 tablet (1,000 mg total) by mouth every morning Active vitamin K2 40 mcg tabletIndicatio ns:supplement Take 1 tablet by mouth every morning Active cholecalciferol 25 mcg (1,000 unit) tabletIndicatio ns:supplement Take 1 tablet (1,000 Units total) by mouth every morning Active ferrous sulfate 325 mg (65 mg of elemental iron) tabletIndicatio ns:Iron Deficiency Anemia Take 1 tablet (325 mg total) by mouth every morning Active calcium carbonate (CALCIUM 500 ORAL)Indication s:supplement Take 1 tablet by mouth every morning Active vitamin B complex capsuleIndicati ons:Vitamin Deficiency Prevention Take 1 capsule by mouth every morning Active BIOTIN ORALIndications :supplement Take 1 tablet by mouth every morning Active acetaminophen 500 mg capsuleIndicati ons:Pain Take 2 capsules (1,000 mg total) by mouth every 6 (six) hours 4 Active oxyCODONE (ROXICODONE) 5 mg immediate release tabletIndicatio ns:Pain Take 1 tablet (5 mg total) by mouth every 4 (four) hours as needed for pain 10 tablet 4 Active meloxicam (MOBIC) 15 mg tabletIndicatio ns:arthritis Take 1 tablet (15 mg total) by mouth nightly 30 tablet 2 4 Active cyclobenzaprine (FLEXERIL) 5 mg tablet Take 1-2 tablets (5-10 mg total) by mouth 3 (three) times a day as needed for muscle spasms 40 tablet 1 4 Active Active Problems Problem Noted Date Diagnosed Date Urinary retention 05/29/2023 Battery end of life of spinal cord stimulator Complete tear of left rotator cuff 03/27/2023 Impingement syndrome of left shoulder 03/13/2023 Arthritis of left acromioclavicular joint 2022 Biceps tendinitis on left 03/13/2023 Abnormal electrocardiogram (ECG) (EKG) 3 Chest pain 08/11/2022 Tobacco use 08/11/2022 Dysmenorrhea 04/02/2018 Functional ovarian cysts 04/02/2018 Menorrhagia with irregular cycle 03/07/2017 Immunizations Name Administration Dates Next Due Influenza, Quadrivalent, Split, Intramuscular Influenza, Quadrivalent, Spl it, Preservative Free, Intramuscular 01/26/2018 Influenza, Trivalent, IM (MDV) 01/06/2017,2015 Social History Tobacco Use Types Packs/Day Years Used Date Smoking Tobacco: Former Cigarettes 1 27 1 995 - 2021 Vaping Started: 2021 Passive Smoke Exposure: Never Smokeless Tobacco: Never AUDIT-C Answer Date Recorded Q1: How often do you have a drink containing alc ohol? Monthly or less 06/04/2023 Q2: How many drinks containi ng alcohol do you have on a typical day when you are drinking? 1 or 2 06/04/2023 Q3: How often do you have si x or more drinks on one occasion? Never 06/04/2023 Personal Safety Answer Date Recorded Have you ever been in or are you currently in a harmful physical or emotional relationship or is someone making you feel afraid or unsafe? Denies 06/18/2023 Comments No Sex and Gender Information Value Date Recorded Sex Assigned at Not on file Legal Sex Female 11:20 PM CDT Gender Identity Not on file Sexual Orientation Not on file Last Filed Vital Signs Vital Sign Reading Time Taken Comments Blood Pressure 118/77 08/03/2023 8:14 AM CDT Pulse 86 08/03/2023 8:14 AM CDT Temperature 36.4 ??C (97.5 ??F) 06/19/2023 8:25 AM CS T Respiratory Rate 16 06/19/2023 7:35 AM MECHANICS SUPERVISOR Oxygen Saturation 97% 06/19/2023 8:25 AM MECHANICS SUPERVISOR Inhaled Oxygen Concentration - - Weight 99.8 kg (220 lb) 08/03/2023 8:14 AM CDT Height 160 cm (5' 3 ) 08/03/2023 8:14 AM CDT Body Mass Index 38.97 08/03/2023 8:14 AM CDT Plan of Treatment Not on file Medical Devices Implanted Type Area Scaling Machine Operator Device Identifier Shelf Expiration Date Model / Serial / Lot Med[employer]onic [employer] Kit Lead Neurostimulator Percutaneous 4.32mm Spacing Interstim Surescan 28cm [id number] - [id number] Implanted:Qty: 1 on 06/18/2023 by Umesh Truong MD at [facility] Neurostimulator N/A: Buttocks Med[employer]onic Inc 02/05/2025 [id number] / / [id number] Description:Lead Neurostimul ator Percutaneous Med[employer] Inc Generator Neurostimulator Bowel Bladder Recharge Free Interstim X [id number] - [id number] Implanted:Qty: 1 on 06/18/2023 by Umesh Truong MD at [facility] Neurostimulator N/A: Buttocks Med[employer]onic Inc [id number] / / Description:GENERATOR NEUROS TIMULATOR BOWEL BLADDER RECHARGE Med[employer]onic Inc Envelope Absrb 2.7x2.5in Antibacterial Tyrx Medium Strl [id number] - [id number] Implanted:Qty: 1 on 06/18/2023 by Umesh Truong MD at [facility] Other - see comments N/A: Buttocks Med[employer]onic Inc 11/12/2023 [id number] / / Description:Neuro absorbable antibacterial envelop-medium [employer] System Biceps [place] Slotted Drill Guide 1.9mm Drill Fibertak Ar-3670 - [id number] Implanted:Qty: 1 on 03/27/2023 by Jayson Grijalva MD at [facility] Left: Shoulder [employer] 09/14/2027 AR-3670 / / [id number] [employer] Arthrex Fibertak Tape 3 Load Rotator Cuff [place] Suture Sterile Latex Free Ar-3633 - [id number] Implanted:Qty: 1 on 03/27/2023 by Jayson Grijalva MD at [facility] Left: Shoulder [employer] 05/16/2027 AR-3633 / / [id number] [employer] Swivelock C 4.75mm 19.1mm Closed Eyelet Vent [place] Suture Ar-2324bcc - [id number] Implanted:Qty: 1 on 03/27/2023 by Jayson Grijalva MD at [facility] Left: Shoulder [employer] 01/13/2027 AR-2324 [facility] / / [id number] Insurance [facility] Advance Directives For more information, please contact: [phone] * Full Code (Latest Code Status on File) Date Activated Date Inactivated Comments 06/18/2023 12:21 PM 06/19/2023 3:28 PM Care Teams Rejected Items Clerk Relationship Specialty Start Date End Date Anton, Judith Salgado NP [address] [place] [address] PCP - General 05/26/20 Khushbu Phan PA [address] [facility] [address], [place] [address] Physician Umbrella Frame Maker Orthopedic Surgery 03/27/23
--- OUTSIDE RECORDS SUMMARY | 2024-04-12 13:17 | XMS_ITS | Encounter Summary ---
Author Organization [facility] Healthcare Address [address] [place] [address] Care Team Providers Care Glass Embosser Name Role Phone Anton Judith Salgado NP Primary Care Provider [phone] Khushbu Phan Unavailable [phone] Reason for Visit * Reason Comments Post-op Encounter Details Date Type Department Care Team (Late st Contact Info) Description 06/22/2023 8:15 AM HISTOLOGY TEACHER Office Visit [facility] Medical [facility] Orthopedics and Sports Medicine [address] [facility] [address] [place] [id number] Khushbu Phan PA [address] [place] [address] [address] [place] [address] History of arthroscopy of left shoulder (Primary Dx); S/P left rotator cuff repair Social History Tobacco Use Types Packs/Day Years Used Date Smoking Tobacco: Former Cigarettes 05 12 1 - 2021 Vaping Started: 2021 Passive Smoke [...] on file Sexual Orientation Not on file documented as of this encounter Last Filed Vital Signs Vital Sign Reading Time Taken Comments Blood Pressure 111/77 06/22/2023 8:20 AM HISTOLOGY TEACHER Pulse 84 06/22/2023 8:20 AM HISTOLOGY TEACHER Temperature - - Respiratory Rate - - Oxygen Saturation - - Inhaled Oxygen Concentration - - Weight 99.8 kg (220 lb) 06/22/2023 8:20 AM HISTOLOGY TEACHER Height 160 cm (5' 3 ) 06/22/2023 8:20 AM HISTOLOGY TEACHER Body Mass Index 38.97 06/22/2023 8:20 AM HISTOLOGY TEACHER documented in this encounter Progress Notes * Khushbu Phan PA - 06/22/2023 8:15 AM CST Images from the original note were not included. FOLLOW UP VISIT Subjective CHIEF COMPLAINT She had concerns including Post-op of the Left Shoulder. HISTORY OF PRESENT ILLNESS Patient is 12 weeks s/p left shoulder arthroscopy with subacromial decompression, distal clavicle excision, biceps tenodesis, full-thickness rotator cuff repair. Reports she has had considerable improvement within the last week. She would undergone anesthesia for a recent procedure (new bladder stimulator placement) and upon awakening from this she would regained some of her motion for flexion and abduction. Feels that postoperative pain medications including Percocet and Toradol likely benefited. She still has a lot of her irritation through the anteriorshoulder, however this is subsided some Pain Assessment Pain Assessment: 0-10 Pain Score: 4 MEDICATIONS She has a current medication list which includes the following prescription(s): acetaminophen, albuterol hfa, ascorbic acid, atorvastatin, biotin, bupropion xl, calcium carbonate, cetirizine, cholecalciferol, cyclobenzaprine, escitalopram, ferrous sulfate, fluticasone propionate, ibuprofen, lamotrigine, meloxicam, montelukast, omeprazole, sulfamethoxazole-trimethoprim, trazodone, vitamin b complex, vitamin k2, and oxycodone. REVIEW OF SYSTEMS Review of Systems Constitutional: Negative for chills, fatigue and fever. Respiratory: Negative for cough, chest tightness and shortness of breath. Musculoskeletal: Negative for arthralgias, gait problem, joint swelling and myalgias. Skin: Negative for rash and wound. Objective PHYSICAL EXAM BP 111/77 Pulse 84 Ht 160 cm (5' 3 ) Wt 99.8 kg (220 lb) BMI 38.97 kg/m?? Left shoulder Inspection Erythema: absent Edema: absent Effusion: absent Surgical scar/wound is present. The surgical scar/wound is healed and no evidence of infection. Scapulothoracic motion: normal Palpation Tenderness is present. The patient has tenderness in the anterior shoulder area(s). Range of motion The patient has reduced range of motion of the left shoulder. Active forward flexion: 150. Active abduction: 140. The patient has pain with active abduction. Passive external rotation at 0 degrees: 50. The patient has pain with passive external rotation at 0 degrees. Strength Abduction: painful and 4/5 External rotation: 4/5 and painful Scapular stabilizers: 4/5 and painful Supraspinatus: 3/5 and painful Lower trapezius: 3/5 and 4/5 Neurovascular The patient has normal vascular on the left side of their body. The patient has normal sensation on the left side of their body. REVIEW OF X-RAYS/STUDIES/LABS Assessment/Plan Ambar was seen today for post-op. Diagnoses and all orders for this visit: History of arthroscopy of left shoulder S/P left rotator cuff repair No orders of the defined types were placed in this encounter. PLAN Overall, her range of motion is improving, She is going to transition her care to a home exercise program. We will retain remaining physical therapy visits for home exercise program instruction including progression of her strengthening exercises. At home she can do this at her own pace. HEP: [email or web address] using code: [email or web address] Plan to follow up in 6 weeks. If she feels the need to continue any formal PT prior to this, I am happy to renew her order. All questions were answered. Patient expressed full understanding and agreement of plan. ANTHONY Batres OLOGY TEACHER documented in this encounter Plan of Treatment Not on file documented as of this encounter Visit Diagnoses Diagnosis History of arthroscopy of left shoulder- Primary S/P left rotator cuff repair documented in this encounter Care Teams Glass Embosser Relationship Specialty Start Date End Date Walton, Judith Salgado NP [address] [place] [address] PCP - General 05/26/20 Khushbu Phan PA [address] [facility] [address], [place] [address] Physician Blister Packaging Machine Operator Orthopedic Surgery 03/27/23 documented as of this encounter
--- OUTSIDE RECORDS SUMMARY | 2024-04-12 13:17 | XMS_ITS | Encounter Summary ---
Author Organization [facility] Address [address] [place] [address] Care Team Providers Care Line Mover Name Role Phone Anton Judith Salgado NP Primary Care Provider [phone] Khushbu Phan Unavailable [phone] Reason for Visit * Auth/Cert (Routine) Specialty Diagnoses / Procedures Referred By Contadrian t Referred To Contact Diagnoses Urinary retention Battery end of life of spinal cord stimulator Urinary retention [R33.9] Battery end of life of spinal cord stimulator [Z45.42] Procedures CO INS/RPLC PERPH SAC/GSTRC NPG/RCVR PCKT CRTJ&CONN CO ELEC MARY IMPLT NPGT SMPL SP/PN NPGT PRGRMG INSERTION/REMOVAL INTERSTIM DEVICE STAGE 2;Programming of InterStimNOTE:REMOVE EXISTINT GENERATOR AND LEAD COMBINED 1ST AND 2ND STAGE INTERSTIM PROCEDURE Referral ID Status Reason Start Date Expiration Date Visits Re quested Visits Authorized [id number] 1 1 Encounter Details Date Type Department Care Team (Late st Contact Info) Description 06/18/2023 5:37 AM FLOW 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 - 06/19/2023 11:28 AM FLOW 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 Hospital Encounter [facility] [address] [place] [address] Umesh Truong MD [address] [facility] [address] [place] [address] Urinary retention (Primary Dx); Battery end of life of spinal cord stimulator Discharge Disposition: Discharge to home or self care Social History Tobacco Use Types Packs/Day Years Used Date Smoking Tobacco: Former Cigarettes 1 27 2021 Vaping Started: 2021 Passive Smoke Exposure: [...] Sign Reading Time Taken Comments Blood Pressure 104/59 06/19/2023 8:25 AM FLOW 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 Pulse 81 06/19/2023 8:25 AM FLOW 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 Temperature 36.4 ??C (97.5 ??F) 06/19/2023 8:25 AM CS T Respiratory Rate 16 06/19/2023 7:35 AM FLOW 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 Oxygen Saturation 97% 06/19/2023 8:25 AM FLOW 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 Inhaled Oxygen Concentration - - Weight 94.8 kg (208 lb 15.9 oz) 024 11:31 AM FLOW 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 Height 160 cm (5' 2.99 ) 06/18/2023 11: 31 AM FLOW 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 Body Mass Index 37.03 06/18/2023 11:31 AM FLOW 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 documented in this encounter Discharge Summaries * Avelino Hunt MD - 06/18/2023 3:50 PM CST Inpatient Discharge Summary BRIEF OVERVIEW Admitting Provider: Umesh Truong MD Discharge Provider: Umesh Truong MD Primary Care Physician at Discharge: Judith Walton NP [phone] Admission Date: 06/18/2023 Discharge Date: 06/19/2023 Admission Location: [facility] Problems/Diagnoses: Principal Problem: Urinary retention Active Problems: Battery end of life of spinal cord stimulator Resolved Problems: No resolved hospital problems. DETAILS OF HOSPITAL STAY Presenting Problem/History of Present Illness: Ambar L Joseph is a 38 y.o. female with InterStim sacral neuromodulator in place, for management ofher nonobstructive urinary retention. The InterStim was implanted in 11/02/2017. She was seen by in clinic on 05/03/23 to check on her InterStim battery. Patient reported that her InterStim generator is stimulating weaker, despite her using the same program. She agreed upon explant of her current Interstim and reimplant including generator change. Hospital Course: Pt admitted to the urology floor after undergoing InterStim explant and reimplant including generator change by Umesh Truong MD on 06/18/23 without complications. For full details of procedure, please see operative note. Postoperatively, vital signs were closely monitored, she was given IVF for hy dration, and allowed a regular diet. Pain controlled with oral medications. Surgical site on midline lower back, skin closed with dermabond. Mild tenderness with palpation at site. On POD1, she was tolerating regular diet, pain well controlled on oral agents, ambulating at baseline. Incision to midline lower back with dermabond, edges well-approximated, no erythema or drainage. Pt deemed medically stable for discharge on POD #1. Discharged home on 06/19/2023 antibiotic, with instructions to follow up in clinic on 07/02/23 as scheduled. Educated on strict return parameters. Active Issues Requiring Follow-up: None Test Results Pending at Discharge: None Operative Procedures Performed: Procedure(s): REMOVE EXISTING GENERATOR AND LEAD COMBINED 1ST AND 2ND STAGE INTERSTIM PROCEDURE; FLUROSCOPY AND INTRA OPERATIVE PROGRAMING OF DEVICE Other Procedures: None Pertinent Test Results: None Discharge Details Physical Exam at Discharge: Discharge Condition: good Pulse: 87 Resp: 12 BP: 94/61 Temp: 36.6 ??C (97.9 ??F) Weight: 94.8 kg (208 lb 15.9 oz) Pertinent Exam Findings at Discharge: GEN: Well-appearing, lying comfortably in bed, in no acute distress. PULM: Breathing non-labored on room air. CV: RRR, extremities are warm and well-perfused. ABD: Soft, non-tender, non-distended. Midline lower back incision closed with sutures and dermabond, dressing intact. : Voiding without difficulty NEURO: A&Ox4, conversing appropriately. Discharge Disposition: home to self care Code Status at Discharge: FULL Discharge Instructions: Please see AVS for full patient instructions. Discharge Medications: Current Medications TAKE these medications albuterol HFA 90 mcg/actuation inhaler Inhale 2 puffs every 6 (six) hours as needed for wheezing or shortness of breath For: asthma attack, mild Commonly known as: PROVENTIL HFA,VENTOLIN HFA,PROAIR HFA atorvastatin 10 mg tablet Take 1 tablet (10 mg total) by mouth nightly For: excessive fat in the blood Commonly known as: LIPITOR BIOTIN ORAL Take 1 tablet by mouth every morning For: supplement buPROPion XL 150 mg 24 hr tablet Take 1 tablet (150 mg total) by mouth every morning For: anxiousness associated with depression Commonly known as: WELLBUTRIN XL CALCIUM 500 ORAL Take 1 tablet by mouth every morning For: supplement cetirizine 10 mg tablet Take 1 tablet (10 mg total) by mouth nightly For: inflammation of the nose due to an allergy Commonly known as: ZyrTEC cholecalciferol 25 mcg (1,000 unit) tablet Take 1 tablet (1,000 Units total) by mouth every morning For: supplement Generic drug: cholecalciferol escitalopram 5 mg tablet Take 1 tablet (5 mg total) by mouth nightly For: anxiousness associated with depression Commonly known as: LEXAPRO ferrous sulfate 325 mg (65 mg of elemental iron) tablet Take 1 tablet (325 mg total) by mouth every morning For: anemia from inadequate iron fluticasone propionate 50 mcg/actuation nasal spray Administer 2 sprays into affected nostril(s) as needed for allergies For: inflammation of the nose due to an allergy Commonly known as: FLONASE ibuprofen 800 mg tablet Take 1 tablet (800 mg total) by mouth 3 (three) times a day as needed for pain For: pain Commonly known as: ADVIL,MOTRIN lamoTRIgine 25 mg tablet Take 2 tablets (50 mg total) by mouth nightly For: Mood Commonly known as: LaMICtal meloxicam 15 mg tablet Take 1 tablet (15 mg total) by mouth daily Commonly known as: MOBIC montelukast 10 mg tablet Take 1 tablet (10 mg total) by mouth nightly For: seasonal runny nose Commonly known as: SINGULAIR omeprazole 10 mg capsule Take 1 capsule (10 mg total) by mouth nightly For: acid reflux Commonly known as: PriLOSEC traZODone 50 mg tablet Take 1 tablet (50 mg total) by mouth nightly at bedtime For: insomnia associated with depression Commonly known as: DESYREL vitamin B complex capsule Take 1 capsule by mouth every morning For: treatment to prevent vitamin deficiency vitamin C 1,000 mg tablet Take 1 tablet (1,000 mg total) by mouth every morning For: supplement Generic drug: ascorbic acid vitamin K2 40 mcg tablet Take 1 tablet by mouth every morning For: supplement ASK your doctor about these medications cyclobenzaprine 5 mg tablet TAKE 1 TO 2 TABLETS(5 TO 10 MG) BY MOUTH THREE TIMES DAILY NEEDED FOR MUSCLE SPASMS Commonly known as: FLEXERIL Ask about: Which instructions should I use? Outpatient Follow-Up: Future Appointments Date Time Provider Department Center 06/22/2023 8:15 AM Khushbu Phan PA [facility] OS [facility] Specialty 07/02/2023 8:40 AM Elle Bernstein Rai, NP [facility] Cosigned by Umesh Truong MD at 06/28/2023 4:58 PM CDT 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 documented in this encounter Discharge Instructions * Discharge Instructions* Avelino Hunt MD - 06/18/2023 7:12 AM FLOW 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 DISCHARGE INSTRUCTIONS: Surgery performed: 2nd stage Interstim placement Wound: - Your incision is closed with stitches that will dissolve over 2 weeks. - Your incision is covered with skin glue that will fall off over the next week. You do not need tocover, scrub at, or peel off this glue. - You may shower tomorrow. Let soapy water run over your incision, but do not scrub at it. - No soaking in a pool/tub/jacuzzi for 2-3 weeks. New medications: - Acetaminophen and ibuprofen as needed for pain; take this scheduled for the next 72 hours, then afterwards as needed - Docusate/miralax as needed for constipation, available [id number] - Bactrim, an antibiotic to help prevent infection; take all of this medication as prescribed. Pain Control - Start by applying ice packs or heating pads and using over the counter medications such as acetaminophen (Tylenol) or ibuprofen (Advil or Motrin) unless otherwise specified by your doctor. - If your pain is still uncontrolled, you may take a stronger, prescription medication that contains opioids. Take only as much of this medication as you need. - As you recover, your pain will decrease and you will need less pain medication. You should only take pain medication if you are in pain. - If you are no longer taking any of your opioid medication and have leftover pills, dispose of them by placing them in a plastic bag, adding dish soap, and throwing them in the trash. Diet: Eat a bland diet, avoid foods that are high in fiber, have a lot of spices, or are high in fat. Youcan begin slowly eating these foods when you are feeling better. Activity: - Do NOT lift anything over 10 pounds for 2 weeks. - Do NOT drive or operate machinery if you are taking narcotic pain medicine. - Do NOT take baths or swim in pools for 2 weeks. - You may take showers - Walking is encouraged. Climbing stairs is OK. Contact your doctor if: - You have a fever higher than 101 F (38.3 C). - You have nausea, vomiting or diarrhea. - Your pain medicine is not helping your pain. - You feel dizzy, very tired or like you may faint. - You have large blood clots in your urine. Sunday through Sunday, 8 AM to 5:00 PM, call [phone] and ask for a member of your doctor's team. For urgent matters, after 5:00 PM during the week, on weekends and holidays, call [phone] and ask to have the Urology Document Coordinator Physician paged for you. Follow up: Follow up with your urologist as scheduled. To schedule this appointment, or if you have any questions or concerns, please call the urology office at . Call your surgeon???s office during regular business hours. If you need to speak to someone after hours or on weekends or holidays, call . Future Appointments Date Time [facility] Department [place] 06/22/2023 8:15 AM Khushbu Phan PA [facility] [address] Specialty 07/02/2023 8:40 AM Elle Bernstein Rai, NP [facility] 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 documented in this encounter Medications at Time of Discharge acetaminophen 500 mg capsuleIndicatio ns:Pain Take 2 capsules (1,000 mg total) by mouth every 6 (six) hours 06/19/2023 albuterol HFA (PROVENTIL HFA,VENTOLIN HFA,PROAIR HFA) 90 mcg/actuation inhalerIndicatio ns:Acute Asthma Attack,mild Inhale 2 puffs every 6 (six) hours as needed for wheezing or shortness of breath ascorbic acid (vitamin C) 1,000 mg tabletIndication s:supplement Take 1 tablet (1,000 mg total) by mouth every morning atorvastatin (LIPITOR) 10 mg tabletIndication s:hyperlipidemia Take 1 tablet (10 mg total) by mouth nightly 12/31/2022 BIOTIN ORALIndications: supplement Take 1 tablet by mouth every morning buPROPion XL (WELLBUTRIN XL) 150 mg 24 hr tabletIndication s:Anxiety with Depression Take 1 tablet (150 mg total) by mouth every morning 02/27/2023 calcium carbonate (CALCIUM 500 ORAL)Indications :supplement Take 1 tablet by mouth every morning cetirizine (ZyrTEC) 10 mg tabletIndication s:Allergic Rhinitis Take 1 tablet (10 mg total) by mouth nightly cholecalciferol 25 mcg (1,000 unit) tabletIndication s:supplement Take 1 tablet (1,000 Units total) by mouth every morning escitalopram (LEXAPRO) 5 mg tabletIndication s:Anxiety with Depression Take 1 tablet (5 mg total) by mouth nightly 02/12/2023 ferrous sulfate 325 mg (65 mg of elemental iron) tabletIndication s:Iron Deficiency Anemia Take 1 tablet (325 mg total) by mouth every morning fluticasone propionate (FLONASE) 50 mcg/actuation nasal sprayIndications :Allergic Rhinitis Administer 2 sprays into affected nostril(s) as needed for allergies ibuprofen (ADVIL,MOTRIN) 800 mg tabletIndication s:Pain Take 1 tablet (800 mg total) by mouth 3 (three) times a day as needed for pain 01/01/2023 lamoTRIgine (LaMICtal) 25 mg tabletIndication s:Mood Take 2 tablets (50 mg total) by mouth nightly 04/27/2022 montelukast (SINGULAIR) 10 mg tabletIndication s:Seasonal Allergic Rhinitis Take 1 tablet (10 mg total) by mouth nightly 10/30/2020 omeprazole (PriLOSEC) 10 mg capsuleIndicatio ns:acid reflux Take 1 capsule (10 mg total) by mouth nightly oxyCODONE (ROXICODONE) 5 mg immediate release tabletIndication s:Pain Take 1 tablet (5 mg total) by mouth every 4 (four) hours as needed for pain 10 tablet 06/19/2023 traZODone (DESYREL) 50 mg tabletIndication s:insomnia associated with depression Take 1 tablet (50 mg total) by mouth nightly at bedtime 07/18/2022 vitamin B complex capsuleIndicatio ns:Vitamin Deficiency Prevention Take 1 capsule by mouth every morning vitamin K2 40 mcg tabletIndication s:supplement Take 1 tablet by mouth every morning sulfamethoxazole -trimethoprim (BACTRIM DS) 800-160 mg per tabletIndication s:Prophylaxis, Surgical Take 1 tablet (160 mg of trimethoprim total) by mouth 2 (two) times a day for 7 days 14 tablet 06/19/2023 4 cyclobenzaprine (FLEXERIL) 5 mg tablet TAKE 1 TO 2 TABLETS(5 TO 10 MG) BY MOUTH THREE TIMES DAILY NEEDED FOR MUSCLE SPASMS 40 tablet 1 06/18/2023 4 meloxicam (MOBIC) 15 mg tablet Take 1 tablet (15 mg total) by mouth daily 30 tablet 1 05/14/2023 4 documented as of this encounter Ordered Prescriptions Prescription Sig Dispense Quantity Refills Last Filled Start Date End Date oxyCODONE (ROXICODONE) 5 mg immediate release tabletIndications :Pain Take 1 tablet (5 mg total) by mouth every 4 (four) hours as needed for pain 10 tablet 06/19/2023 acetaminophen 500 mg capsuleIndication s:Pain Take 2 capsules (1,000 mg total) by mouth every 6 (six) hours 06/19/2023 sulfamethoxazole- trimethoprim (BACTRIM DS) 800-160 mg per tabletIndications :Prophylaxis, Surgical Take 1 tablet (160 mg of trimethoprim total) by mouth 2 (two) times a day for 7 days 14 tablet 06/19/2023 4 documented in this encounter Discharge Disposition Disposition Code Departure Means Destination Comment s Discharge to home or self care documented in this encounter Progress Notes * Judith Camilo RN - 06/19/2023 10:36 AM CST 06/19/23 1025 Discharge Summary Discharge Disposition Private residence Equipment/Provider Needs No Home Needs Identified Discharge Additional Assistance Does the patient need discharge transport arranged? No (car with family) Post Discharge Care Provider Post Discharge Care Plan DC Summary has been faxed to next level of care provider (see Follow Up Providers) Per medical team, patient is medically stable for discharge at this time. Follow up appointment hasbeen scheduled per medical team. Transportation will be provided by family. Patient and/or family are agreeable with the plan. If any further discharge needs arise, please contact the covering residential case manager. 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 * Avelino Hunt MD - 06/18/2023 2:46 PM CST Postoperative Assessment Subjective Pain well controlled. Denies N/V, eating lunch during interview. No chest pain, SOB. Objective Vitals: Vitals: 06/18/23 1245 BP: 105/63 Pulse: 64 Resp: Temp: 36.6 ??C (97.9 ??F) SpO2: 97% Gen: A&OX3, no acute distress Pulm: non-labored breathing with symmetrical expansion CV: RRR Abd: soft, non-tender, non-distended Skin: wwp : low back incision with dressing, mild shadowing present but dry and intact. Assessment 38 y.o. female h/o nonobstructive urinary retention, now POD0 s/p Interstim explant, reimplant including generator for battery. Doing well. Plan Neuro: Pain controlled with oral meds CV: Vital Signs Stable Pulm: Incentive Spirometer GI: adult regular diet : void check ID: josy Albarran x 1 day post-op Activity: OOB, Ambulate TID VTE prophylaxis: SCDs, SQ injections Avelino Hunt MD Urology PGY-2 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 documented in this encounter H&P Notes * Umesh Truong MD - 06/18/2023 7:15 AM CST I have reviewed the H&P, examined the patient, and endorse the findings as written. Plan of Care : Based on the above findings, I consider Ambar Ruiz to be an acceptable risk for : Procedure(s): INSERTION/REMOVAL INTERSTIM DEVICE STAGE 2;Programming of InterStimNOTE:REMOVE EXISTINT GENERATOR AND LEAD COMBINED 1ST AND 2ND STAGE INTERSTIM PROCEDURE Physical examination: GENERAL: Patient is a healthy appearing who is well developed, well nourished in no acute distress. Eyes: Pupils equal, round. Sclera anicteric. Chest: Lungs clear to auscultation bilaterally. Heart: Regular rate and rhythm. Abdomen: Soft and non-tender, no masses, no hernia. No CVA tenderness. Skin: No rashes or lesions. Musculoskeletal: Normal strength. No edema. Neurologic: Alert, nonfocal. Psychiatric: Normal affect and mood, oriented x 3. 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 Source Note - Lupe Irvin NP - 06/12/2023 3:57 PM FLOW 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 Images from the original note were not included. Center for Preoperative Assessment and Planning Preoperative Evaluation Record Evaluation type/location: TPAP from [facility] Planned procedure site: [facility] PVT OR (Pod 1) Date: 06/12/23 NOTE: This note represents a preoperative evaluation initiated via telephone interview. NO PHYSICALEXAM was performed at the time of initial assessment. A physical exam may be added to this note anddocumented below. Anesthesia Evaluation Ambar Ruiz is a 38 y.o. female INSERTION/REMOVAL INTERSTIM DEVICE STAGE 2;Programming of InterStimNOTE:REMOVE EXISTINT GENERATOR AND LEAD COMBINED 1ST AND 2ND STAGE INTERSTIM PROCEDURE Pre-Op Diagnosis Codes: * Urinary retention [R33.9] * Battery end of life of spinal cord stimulator [Z45.42] HISTORY HPI Ambar Ruiz is a 38 y.o. female with history of asthma, GERD, hiatal hernia, obesity, and urinary retention who is being evaluated prior to undergoing insertion/removal Interstim Device stage 2, remove existing generator and lead combined 1st and 2nd stage Interstim procedure Past Medical History Information obtained from: patient and chart. Neurological + Psychiatric history - anxiety Pertinent negatives: seizures; neuromuscular disease; CVA/stroke and TIA Cardiovascular Pertinent negatives: hypertension ; CAD ; [place] ; CABG ; valvular heart disease; atrial fibrillation; pacemaker/ICD; DVT/PE; negative for CHF; drug-eluting stent(s) and bare metal stent(s) Respiratory + Asthma (no albuterol use in months) Rescue inhaler use: 2 days/week or less. Hospitalizations/ER in the last year: 0. History of oral steroid use. + Current smoker (vapes) - Counseled to abstain from smoking the day of surgery. Pertinent negatives: COPD; sleep apnea (MIGUEL); no O2 use outside the hospital and no prior intubation for respiratory failure due to asthma Hepatic / Heme + History of anemia (on iron supplements) Pertinent negatives: liver disease Gastrointestinal + GERD - PRN medication use only. Asymptomatic. + Hiatal hernia Renal / Pertinent negatives: renal disease and dialysis Endocrine / Other + Obesity (BMI >30) Pertinent negatives: diabetes mellitus; thyroid disease; cancer history; transplanted organ and infectious disease Functional Capacity Functional capacity: 4-6 METs Comments: Active around the house and independent in ADLs. Able to walk 4 city blocks and climb 2 flights of stairs without CP or SOB. Review of Systems Pertinent negatives: productive cough; SOB; recent cold/flu; fever; chest pain; orthopnea; pedal edema; PND; previous transfusion; bleeding problems; syncope; dizziness and no unexpected weight change Comments: Denies UTI, URI, open wounds, or other signs and symptoms of infection at this time. PAT Summary and Plans Cardiac risk classification of planned procedure: low cardiac risk. Preoperative assessment status: complete. Additional comments: Ambar Ruiz is a 38 y.o. female who is being evaluated prior to undergoing a low cardiac risk surgery. Revised Cardiac Risk Index factors are (none) for a total RCRI of 0 out of 6. Functional capacity is 4-6 METs. Pt instructed to bring bladder stimulator remote to hospital on DOS Obstructive sleep apnea (MIGUEL) screening status is STOP-BANG incomplete but suspected to be 0-2 suggesting low risk for MIGUEL. Neck circumference pending.. This assessment was performed via telephone. Therefore the physical exam has been deferred to the day of surgery team. The patient was provided with preoperative instructions for their medications. Patient instructions were provided by telephone and electronically sent via TYMR. Patient verbalized understanding of preoperative plan. Blood bank needs for day of procedure: No type and screen needed Pending labs/tests include: None Reviewed unremarkable CMP and CBC 01/16/23 TPAP assessment complete Preoperative evaluation performed by Lupe Irvin NP on 06/12/23 at 4:00 PM . Patient Active Problem List Diagnosis Date Noted Urinary retention 05/29/2023 Battery end of life of spinal cord stimulator 05/29/2023 Complete tear of left rotator cuff 03/27/2023 Impingement syndrome of left shoulder 03/13/2023 Arthritis of left acromioclavicular joint 03/13/2023 Biceps tendinitis on left 03/13/2023 Abnormal electrocardiogram (ECG) (EKG) 08/11/2022 Chest pain 08/11/2022 Tobacco use 08/11/2022 Dysmenorrhea 04/02/2018 Functional ovarian cysts 04/02/2018 Menorrhagia with irregular cycle 03/07/2017 Past Medical History: Diagnosis Date Anemia Anxiety Asthma Depression Gastric reflux GERD (gastroesophageal reflux disease) Hiatal hernia Hypercholesteremia Migraines PONV (postoperative nausea and vomiting) Done well with scopolamine patch in the past Past Surgical History: Procedure Laterality Date BLADDER SURGERY 10/2017 neurostimulator placement surgery HYSTERECTOMY 03/2018 OVARIAN CYST SURGERY 02/2016 ROTATOR CUFF REPAIR Left 03/2023 TUBAL LIGATION 02/2017 WISDOM TOOTH EXTRACTION 01/2002 x4 OB History No obstetric history on file. Allergies Allergen Reactions Latex Hives and Shortness of breath Med List Status: Nurse Complete Set By: Annie Siddiqui RN at 06/04/2023 11:55 AM Taking? Last Dose Start Date End Date Provider albuterol HFA (PROVENTIL HFA,VENTOLIN HFA,PROAIR HFA) 90 mcg/actuation inhaler More than a month ---- ProviderAnderson MD ascorbic acid (vitamin C) 1,000 mg tablet 06/04/2023 -- -- Anderson Grewal MD atorvastatin (LIPITOR) 10 mg tablet 06/03/2023 12/31/22 -- Anderson Grewal MD BIOTIN ORAL 06/04/2023 -- -- Anderson Grewal MD buPROPion XL (WELLBUTRIN XL) 150 mg 24 hr tablet 06/04/2023 02/27/23 -- Anderson Grewal MD calcium carbonate (CALCIUM 500 ORAL) 06/04/2023 -- -- Anderson Grewal MD cetirizine (ZyrTEC) 10 mg tablet 06/03/2023 -- -- Anderson Grewal MD cholecalciferol 25 mcg (1,000 unit) tablet 06/04/2023 -- -- Anderson Grewal MD cyclobenzaprine (FLEXERIL) 5 mg tablet 06/04/2023 05/14/23 -- Khushbu Phan PA Take 1-2 tablets (5-10 mg total) by mouth 3 (three) times a day as needed for muscle spasms Patient taking differently: Take 1-2 tablets (5-10 mg total) by mouth 2 (two) times a day escitalopram (LEXAPRO) 5 mg tablet 06/03/2023 02/12/23 -- Anderson Grewal MD ferrous sulfate 325 mg (65 mg of elemental iron) tablet 06/04/2023 -- -- Anderson Grewal MD fluticasone propionate (FLONASE) 50 mcg/actuation nasal spray More than a month -- -- Anderson Grewal MD ibuprofen (ADVIL,MOTRIN) 800 mg tablet More than a month 01/01/23 -- Anderson Grewal MD lamoTRIgine (LaMICtal) 25 mg tablet 06/04/2023 04/27/22 -- Anderson Grewal MD meloxicam (MOBIC) 15 mg tablet 06/03/2023 05/14/23 05/13/24 Khushbu Phan PA Take 1 tablet (15 mg total) by mouth daily Patient taking differently: Take 1 tablet (15 mg total) by mouth nightly montelukast (SINGULAIR) 10 mg tablet Past Month 10/30/20 -- Anderson Grewal MD omeprazole (PriLOSEC) 10 mg capsule 06/03/2023 -- -- Anderson Grewal MD traZODone (DESYREL) 50 mg tablet 06/03/2023 07/18/22 -- Anderson Grewal MD vitamin B complex capsule 06/04/2023 -- -- Anderson Grewal MD vitamin K2 40 mcg tablet 06/04/2023 -- -- Anderson Grewal MD No current facility-administered medications for this encounter. Current Outpatient Medications: ascorbic acid (vitamin C) 1,000 mg tablet atorvastatin (LIPITOR) 10 mg tablet BIOTIN ORAL buPROPion XL (WELLBUTRIN XL) 150 mg 24 hr tablet calcium carbonate (CALCIUM 500 ORAL) cetirizine (ZyrTEC) 10 mg tablet cholecalciferol 25 mcg (1,000 unit) tablet cyclobenzaprine (FLEXERIL) 5 mg tablet escitalopram (LEXAPRO) 5 mg tablet ferrous sulfate 325 mg (65 mg of elemental iron) tablet lamoTRIgine (LaMICtal) 25 mg tablet meloxicam (MOBIC) 15 mg tablet montelukast (SINGULAIR) 10 mg tablet omeprazole (PriLOSEC) 10 mg capsule traZODone (DESYREL) 50 mg tablet vitamin B complex capsule vitamin K2 40 mcg tablet albuterol HFA (PROVENTIL HFA,VENTOLIN HFA,PROAIR HFA) 90 mcg/actuation inhaler fluticasone propionate (FLONASE) 50 mcg/actuation nasal spray ibuprofen (ADVIL,MOTRIN) 800 mg tablet Social History Tobacco Use Smoking Status Former Current packs/day: 0.00 Average packs/day: 1 pack/day for 27.0 years (27.0 ttl pk-yrs) Types: Cigarettes, Vaping Start date: 1994 Quit date: 2021 Years since quittin.1 Passive exposure: Never Smokeless Tobacco Never Alcohol Use: Not At Risk (06/04/2023) AUDIT-C Frequency of Alcohol Consumption: Monthly or less Average Number of Drinks: 1 or 2 Frequency of Binge Drinking: Never Substance and Sexual Activity Drug Use Never Family History Problem Relation Age of Onset Diverticulitis Mother Hiatal hernia Mother Stroke Father Alzheimer's disease Father Hypertension Father Atrial fibrillation Father Diabetes Maternal Grandmother Atrial fibrillation Father's Brother Alcohol abuse Other Mental illness Other Arthritis Other Cancer Other Lung disease Other Anesthesia problems Neg Hx There were no vitals filed for this visit. Relevant diagnostics: ECG(s): 08/03/22 Vent Rate: 106 bpm RR Interval: 562 msec CO Interval: 175 msec QRS Duration: 100 msec QT Interval: 321 msec QTC Interval: 383 msec P-R-T [place]: 26 - 17 - 10 degrees SINUS TACHYCARDIA with PVC POSSIBLE LEFT ATRIAL ENLARGEMENT [-0.1mV P WAVE IN V1/V2] POSSIBLE LEFT VENTRICULAR HYPERTROPHY [VOLTAGE CRITERIA PLUS LAE OR QRS WIDENING] NONSPECIFIC ST \T\ T-WAVE ABNORMALITY Echocardiogram(s): 09/14/22 Conclusions: Normal left ventricular systolic function with no focal wall motion abnormalities. Normal left ventricular size. Normal left ventricular wall thickness. Normal left ventricular diastolic function. Ejection fraction is measured at 67 %. Normal right ventricular size. Normal right ventricular systolic function. Normal structure of the mitral valve. Trivial regurgitation of the mitral valve. Normal structure of the aortic valve. Normal structure of the tricuspid valve. Normal right ventricular systolic pressure. Trivial regurgitation in the tricuspid valve. Normal pericardium with no significant pericardial effusion. Stress test(s): N/A Cardiac catheterization(s): N/A PFT(s): N/A Vascular studies: N/A Other: 08/01/22 Holter: 1. Predominant rhythm is normal sinus rhythm with a minimum heart rate of 46 beats per minute in sinus and a maximum heart rate of 123 beats per minute also in sinus. Total monitoring time of 2 days. 2. Heart rate and rate variability is appropriate. 3. No prolonged pauses. 4. Rare PACs with only 8 PACs amounting to less than 0.01% of total beats. 5. Rare PVCs with only 58 PVCs corresponding to 0.03% of total beats. 6. The patient recorded no symptoms during the study. PT: No results found for requested labs within last 30 days. INR: No results found for requested labs within last 30 days. APTT: No results found for requested labs within last 30 days. Hgb A1C: No results found for requested labs within last 30 days. CBC RBC: No results found for requested labs within last 30 days. RDW: No results found for requested labs within last 30 days. MCHC: No results found for requested labs within last 30 days. MCH: No results found for requested labs within last 30 days. MCV: No results found for requested labs within last 30 days. Hct: No results found for requested labs within last 30 days. Hgb: No results found for requested labs within last 30 days. WBC: No results found for requested labs within last 30 days. MPV: No results found for requested labs within last 30 days. Platelets: No results found for requested labs within last 30 days. RDW CV: No results found for requested labs within last 30 days. RDW Sd: No results found for requested labs within last 30 days. BMP Glucose: No results found for requested labs within last 30 days. Calcium: No results found for requested labs within last 30 days. Sodium: No results found for requested labs within last 30 days. Potassium: No results found for requested labs within last 30 days. CO2: No results found for requested labs within last 30 days. Chloride: No results found for requested labs within last 30 days. BUN: No results found for requested labs within last 30 days. Creatinine: No results found for requested labs within last 30 days. Yi index score: 100 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 documented in this encounter Miscellaneous Notes * Plan of Care - Falguni Javier RN - 06/19/2023 10:41 AM CST Problem: Health Behavior: Goal: Understanding of discharge needs will improve 06/19/2023 1040 by Falguni Javier RN Outcome: Adequate for Discharge Problem: Lack of Knowledge Goal: Ability to develop a pain control plan will improve 06/19/2023 1040 by Falguin Javier RN Outcome: Adequate for Discharge Problem: Medication Goal: Satisfaction with pain management medication regimen will improve 06/19/2023 1040 by Falguni Javier RN Outcome: Adequate for Discharge Problem: Sensory Goal: Ability to identify factors that increase pain levels will improve while working to decrease the patient's pain levels 06/19/2023 1040 by Falguni Javier RN Problem: Neurosensory Goal: Achieves stable or improved neurological status 06/19/2023 1040 by Falguni Javier RN Outcome: Adequate for Discharge 06/19/2023 1040 by Falguni Javier RN Outcome: Not Progressing 06/19/2023 1040 by Falguni Javier RN Outcome: Progressing Goal: Absence of seizures 06/19/2023 1040 by Falguni Javier RN Outcome: Adequate for Discharge Goal: Remains free of injury related to seizures activity 06/19/2023 1040 by Falguni Javier RN Outcome: Adequate for Discharge Goal: Achieves maximal functionality and self care 06/19/2023 1040 by Falguni Javier RN Outcome: Adequate for Discharge 06/19/2023 1040 by Falguni Javier RN Outcome: Not Progressing 06/19/2023 1040 by Falguni Javier RN Outcome: Progressing Goal: Ability to maintain intracranial pressure will improve 06/19/2023 1040 by Falguni Javier RN Outcome: Adequate for Discharge Problem: Skin/Tissue Integrity Goal: Skin integrity remains intact 06/19/2023 1040 by Falguni Javier RN Outcome: Adequate for Discharge Goal: Incisions, wounds, or drain sites healing without S/S of infection 06/19/2023 1040 by Falguni Javier RN Outcome: Adequate for Discharge Goal: Oral mucous membranes remain intact Description: 06/19/2023 1040 by Falguni Javier RN Outcome: Adequate for Discharge Goals: Clinical Goals for the Shift: ambulate & pain control Summary: pt alert and oriented, no c/o pain, ambulating independently, discharge instructions reviewed with patient, no acute changes this shift, awaiting mobile pharmacy to deliver meds. 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 * Initial Assessments - Judith Camilo RN - 06/19/2023 10:26 AM CST CM Initial Assessment Interview Note Information Obtained From: Patient (at bedside) (06/19/231024) Admission Source: home Impression: 38 year old female admitted following interstim explant, reimplant including generator for battery. Plan Includes: Case management following for discharge planning and referrals as needed. Patient anticipates return to home when medically stable with support of spouse. Primary Source of Transportation: Does the patient need discharge transport arranged?: No (car with family) (06/19/231024) Health Insurance Coverage: [facility] Choice Plus Prescription Coverage: yes Pharmacy: verified [facility] #[id number] - [place] - [id number] AT [place] [id number] [place] [id number] [facility] [place], [place] - [address] [facility] [address] [facility] [address] [facility] [id number] Primary Care Provider: Judith Bennett NP Prior to Admission: Functional Status: Independent with ADLs Primary Caregiver: Self Support System: Spouse/Significant Other ( Adrian Ruiz [phone]) Home Care Services: No Outpatient Services: No Durable Medical Equipment: None Living Arrangements: Spouse/significant other, Children Type of Residence: Apartment Steps in home?: Yes, Outside of home Number of steps outside: 10 steps Medication management: Independent (06/18/23 1243) Potential discharge needs include: Home Health: None (06/19/23 102) Dialysis: N/A Behavioral Health Services: Behavioral Health Services: No (06/19/231024) Patient expects to be Discharged to: Private residence, (06/19/23 102) Additional Information: Patient lives with and son in a private residence. Address and phone number verified with face sheet. Independent with ADLs at baseline, denies home health and DME prior to admission. Support and transportation at discharge per family. Role of case management explained. Patient's Identified Problem/Goal Problem: Ensure acute medical needs are met and that patient has a safe discharge plan. Goal: Secure a discharge plan that patient/family are agreeable with and ensure patient has continuum of care. Case management will follow for discharge planning and send referrals as needed. Goals include: To assure continuity of care, To maximize coping skills, To assure patient is in a safe environment and To assure access to community resources. Plan includes: 1. Collaboration with patient, MD, direct care nurse, [place], and other members of the health care team to assure needed interventions completed. 2. Return patient to optimal level of self-care post discharge. 3. Rn Plastics will follow for Discharge Planning - interventions as needed 4. Anticipated level of care at discharge 5. Planned Discharge Disposition Based on a comprehensive family assessment, assistance with instrumental activities of daily livingafter discharge will be provided by spouse. Through the course of our work I determined that the spouse possesses the skill and ability to provide and monitor the care of the patient when he or she returns home. Spouse has the capacity to provide/monitor/arrange for the care of the patient. Finally, we determined that spouse has the knowledge of available resources and that combining them with their existing resources will suffice to sustain and care for the patient when he or she returns home. The treatment team is aware of this information. All are in agreement with the aftercare plan. Judith Camilo RN 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 * Plan of Care - Amy Lennon RN - 06/19/2023 4:05 AM CST Goals: Clinical Goals for the Shift: ambulate & pain control Summary: Problem: Medication Goal: Satisfaction with pain management medication regimen will improve Outcome: Progressing Problem: Sensory Goal: Ability to identify factors that increase pain levels will improve while working to decrease the patient's pain levels Outcome: Progressing 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 * Plan of Aminata - Falguni Javier RN - 06/18/2023 12:52 PM CST Problem: Health Behavior: Goal: Understanding of discharge needs will improve Outcome: Progressing Problem: Lack of Knowledge Goal: Ability to develop a pain control plan will improve Outcome: Progressing Problem: Medication Goal: Satisfaction with pain management medication regimen will improve Outcome: Progressing Problem: Sensory Goal: Ability to identify factors that increase pain levels will improve while working to decrease the patient's pain levels Outcome: Progressing Goals: Summary: pt alert and oriented, pain well controlled, ambulating independently, no acute changes this shift. 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 * Perioperative Nursing Note - Jarret Curtis RN - 06/18/2023 8:04 AM CST Stage 1 Neuro stimulator removed by Dr. Truong 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 * Op Note - Umesh Truong MD - 06/18/2023 7:58 AM CST Date of Surgery: 06/18/2023 Preoperative diagnosis: Urinary retention, her existing InterStim lead is not MRI compatible, patient needs to get an MRI scan, her existing InterStim generator is reaching the end of generator battery life Post-operative diagnosis: Urinary retention, her existing InterStim lead is not MRI compatible, patient needs to get an MRI scan, her existing InterStim generator is reaching the end of generator battery life Procedure: Removal of existing InterStim lead and generator, combined First stage InterStim procedure with placement of permanent InterStim lead through an incision into sacral foramen, and 2nd stage InterStim procedure with placement of generator, fluoroscopic guidance placement of lead, intraoperative programming of InterStim device. Statement on Addition Complexity of Surgery: Because of the previous surgery and significant scarring around the sacral foramen, the operation is significantly more difficult, takes significantly more time than usual (90 more minutes than typically required), and requires significantly more surgical skills to complete than typically required. Note: the InterStim system is MRI compatible up to 3T Note: the InterStim lead is for the non-rechargeable system Surgeon: Umesh Truong MD Engineering Inspection Assistant: Tree De La Rosa MD Anesthesia: General Complications: None Estimated blood loss: None Specimen: None Indication for surgery: Pt has a diagnosis of urinary retention. She has an existing InterStim device in place. The generator is reached the end of generator battery life, therefore the generator needs to be removed and replaced. In addition, her existing InterStim lead is not MRI compatible. [place] wall needs to get an MRI scan below her neck. Her existing InterStim lead needs to be removed and replaced. We are doing a removal of the old entire system, doing a combined 1st and 2nd stage procedure,with placement of lead and generator, in 1 setting. I have discussed with patient in detail all risks, benefits and alternatives to the surgery. All questions were answered. Risks discussed and included, but were not limited to, wound/prosthesis infection, bleeding, failure of the trial, failure of the generator or lead, lead migration, development of pain, loss of efficacy and relapse of urinary symptoms, the need for revision surgery in the future, etc. I have also discussed the very low risk of spinal injury, fractured lead, retained lead (foreign body) in the spine. Patient is also aware that the InterStim may not completely eliminate the symptoms but may improve the symptoms. Patient consented to proceed with removal of existing InterStim, combined 1st and 2nd stage InterStim lead and generator placement. Surgery in details: Patient identified in the preop area. Patient has received IV (weight based) vancomycin and 3 g of Unasyn 1 hour prior to beginning of procedure. Patient was then intubated in thesupine position and then placed in prone position. All the pressure points of body were well padded, bilateral SCDs were placed for DVT prophylaxis. Two ChloraPreps were applied to the back and the buttock area. An Ioban was laid onto the skin prior to reduce the chance of a device infection. Incision was made over the generator site. A counter incision was made over the percutaneous site where the lead go into the sacral foramen. The generator was removed. A right inguinal put around thelead, the lead was entirely removed with all the 4 pairs of tints and all 4 electrodes intact. There is no foreign body left inside the patient. Under fluoroscopic guidance, I were able to find the third sacral foramen in the patient, marking the most medial margin of the foramen. I started the case on the same side as the previous InterStim lead. We are able to go in the same foramen, however because of the scar tissue, we get greater response for electrodes 2 and 3, edit then electrode 1 and 0. We have tried different orientation on the same foramen on that side. We also spent additional time on the contralateral side to drop down the lead. Through AP and lateral guidance, we not able to place any needle into the sacral foramen on the contralateral side. Because of the previous surgery and significant scarring around her sacral foramen, the operation is significantly more difficult, takes significantly more time than usual (90 more minutes than typically required), and requires significantly more surgical skills to complete than typically required. I essentially tried to place it InterStim lead on the left side and on the right side, with different orientations and angling. Because of the scarring, I was only able to get response going back to exactly the same foramen, with good response to electrode 2 and 3. Because of the scarring inside the foramen, the electrode does not flare out very well. Patient got a bellow response and a toe response on the third sacral foramen.I then used the InterStim trocar to drop the trocar into the foramen under fluoroscopic guidance laterally. I then used the curved stylette with the InterStim curving laterally and inferiorly we were able to appose the nerve going to the third sacral nerve to the pelvic and the bladder area. Intraoperatively I tested each of the electrodes. For electrode #0 there is a bellow response at level none and toe response at level none. For electrode #1 there is a bellow response at none and toe response at none. For electrode #2 there is a bellow response at 2.5 and toe response at 2.5. For electrode #3, there is a bellowresponse at 3.0 and toe response at 3.0. Electrodes 0, 1, and 2 are below the bone margin. Electrode #3 is above the bone margin. There was no leg rotation. I then deployed the InterStim lead. The InterStim lead was then passed to the generator site. The pocket was enlarged to accommodate the generator with the antibiotics pocket. The generator is then placed inside an absorbable antibiotics pocket (Tyrx) before placing inside the patient. The entire pocket was then water containing antibiotic solutions. There is excellent hemostasis. The lead was then dried up and then connected to the generator. The device was then placed inside the pocket without tension or difficulties. Complex intraoperative programming of the InterStim device was then performed. The impedance 4 between electrode 0, 1, 2, and 3, and the generator was then tested. All the impedance check was within normal limits. InterStim programs 1, 2, 3, 4, 5, 6, and 7 were then all programmed into the InterStim device. Each of the 7 programs was then turned on separately. The pulse width and the amplitude and the cycling parameters of each of the 7 programs was then programed into the InterStim device separately. The generator was also turned on. The program that gave patient the best response during testing was turned on and was set at the default program. All the incisions were then washed with ample amount of water containing ancef antibiotics. There was excellent hemostasis. The incision was then closed using multiple layers using absorbable suture.Total fluoroscopic time for the case is over a minute. Counts at the conclusion of the case: Correct Presence Statement: I, Dr. Umesh Truong, was present throughout the surgery. Intra-op Lead Testing Info (for future programming needs): Electrode(s) 2 & 3 gave the best testing response intraoperatively. Programs using those leads can be favored during future re-programming efforts. 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 * Brief Op Note - Umesh Truong MD - 06/18/2023 7:58 AM CST Operative Progress Note Surgical Team: Surgeons and Role: * Umesh Truong MD - Primary * Rigoberto Viramontes MD - Resident - Assisting Anesthesiologist: Sima Quezada MD RAMPMAN: Sally Donnelly CRNA Movable Bulkhead Installer: Kayla Madsen RN; Jarret Curtis RN Scrub: Ramila Garcia RN DATE OF SURGERY : 06/18/2023 Preoperative Diagnosis: Pre-op Diagnosis * Urinary retention [R33.9] * Battery end of life of spinal cord stimulator [Z45.42] Postoperative Diagnosis: Post-op Diagnosis * Urinary retention [R33.9] * Battery end of life of spinal cord stimulator [Z45.42] Procedure(s): Procedure(s) (LRB): REMOVE EXISTING GENERATOR AND LEAD COMBINED 1ST AND 2ND STAGE INTERSTIM PROCEDURE; FLUROSCOPY AND INTRA OPERATIVE PROGRAMING OF DEVICE (N/A) Operative Findings: Existing InterStim lead was removed because it was not MRI compatible. Existing InterStim generatorwas removed because it was reaching the end of battery life. A new InterStim system with both a newlead and the new generator, both MRI compatible, was placed inside the patient. Estimated Blood Loss: 25 mL Intraoperative Fluids: See anesthesia record for mls Specimens: No specimen collected in procedure Implants: Implant Name Type Inv. Item Serial No. Sports Administrator Lot No. [id number] No. Used Action [employer] Kit Lead Neurostimulator Percutaneous 4.32mm Spacing Interstim Surescan 28cm [id number] - [id number] Neurostimulator [employer] Kit Lead Neurostimulator Percutaneous 4.32mm Spacing Interstim Surescan 28cm [id number] [employer] [id number] N/A 1 Implanted [employer] Generator Neurostimulator Bowel Bladder [place] [id number] - [id number] [employer] Generator Neurostimulator Bowel Bladder Recharge Free Interstim X [id number] [employer] N/A 1 Implanted [employer] Envelope Absrb 2.7x2.5in Antibacterial Tyrx Medium Strl [id number] - [id number] Other - see comments [employer] Envelope Absrb 2.7x2.5in Antibacterial Tyrx Medium Strl [id number] [employer] N/A 1 Implanted Blood/Blood Products Transfused: 0 mls Complications: None Condition on Discharge from the operating room was stable Umesh Truong MD Date: 06/20/2023 Time: 3:48 PM TEACHING ATTESTATION : I was present and directly participated in the entire procedure (including opening and closing). 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 * Pre-Procedure Instructions - Lupe Irvin NP - 06/12/2023 3:53 PM FLOW 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 [facility] Location: [facility] The night before your surgery: * Do not eat anything after midnight the night before your procedure. The morning of your surgery: * You may have clear liquids on your surgery day. You must stop drinking two hours before you arrive to the surgery facility. Acceptable clear liquids include water, clear sports drinks, black coffee, or clear soda. DO NOT drink any milk, creamer, or alcohol. * Your surgeon's office may have provided additional instructions or restrictions. Please follow those instructions. * You may brush your teeth and rinse your mouth out. * Do not glue your dentures. * Do not wear jewelry, body piercings, makeup, hairpins, false eyelashes or contact lenses to the hospital. * Leave any valuables at home or with your family. * If you are still having menstrual cycles, you should come with a full bladder on the morning of surgery in order to provide a urine sample. * If you have an implantable device with a remote, bring the remote with you on the day of surgery. * If having surgery at [facility], you may want to bring a credit card if you want to use our Mobile Pharmacy for your discharge medications. Mobile pharmacy is not available at [facility], the [facility], or the [place] [facility]. If you are a smoker: * You should prepare for your surgery and recovery well ahead of time. Stop smoking at least 2 weeks before surgery to help prevent infection and help your body recover faster. Ask your surgeon for tools to help you quit or call 3-099-CWIJQBF ( ). Visit Smokefree.gov for more information. * Do not smoke during the 24 hours before surgery. Instructions For Your Medications: Pre-Surgery Instructions: Medication Instructions ascorbic acid (vitamin C) 1,000 mg tablet Don't take on day of surgery atorvastatin (LIPITOR) 10 mg tablet Take per usual schedule BIOTIN ORAL Don't take on day of surgery buPROPion XL (WELLBUTRIN XL) 150 mg 24 hr tablet Take per usual schedule calcium carbonate (CALCIUM 500 ORAL) Don't take on day of surgery cetirizine (ZyrTEC) 10 mg tablet Take on day of surgery if needed cholecalciferol 25 mcg (1,000 unit) tablet Don't take on day of surgery cyclobenzaprine (FLEXERIL) 5 mg tablet Take on day of surgery if needed escitalopram (LEXAPRO) 5 mg tablet Take per usual schedule ferrous sulfate 325 mg (65 mg of elemental iron) tablet Don't take on day of surgery lamoTRIgine (LaMICtal) 25 mg tablet Take per usual schedule meloxicam (MOBIC) 15 mg tablet Stop taking 5 days prior to surgery montelukast (SINGULAIR) 10 mg tablet Take per usual schedule omeprazole (PriLOSEC) 10 mg capsule Take per usual schedule traZODone (DESYREL) 50 mg tablet Take per usual schedule vitamin B complex capsule Don't take on day of surgery vitamin K2 40 mcg tablet Stop taking 1 week prior to surgery albuterol HFA (PROVENTIL HFA,VENTOLIN HFA,PROAIR HFA) 90 mcg/actuation inhaler Take on day of surgery if needed fluticasone propionate (FLONASE) 50 mcg/actuation nasal spray Don't take on day of surgery ibuprofen (ADVIL,MOTRIN) 800 mg tablet Stop taking 5 days prior to surgery General Instructions For Medications: * Stop all of these medications 5 days prior to your surgery: excedrin, motrin, advil, ibuprofen, aleve, naproxen, meloxicam, celebrex, celecoxib. For medications that you are instructed to take on the morning of surgery, take the medications with a few sips of water. Stop all of these medications 7-14 days prior to your surgery: Vitamin E, Herbal medicines, Diet Pills If you use inhalers, please bring them with you on the day of your procedure. If you have pain, you may take tylenol (acetaminophen). Do not take more than 6 tablets or 3000 mg (3 g) within a 24 period. Call your surgeon and the CPAP clinic if any of the following happens before surgery: Any changes in your health You have a fever You have any signs of an infection (chest, urinary tract or tooth) You have been to the Emergency Room or were in the hospital You have started taking any new medications You have questions about a bowel prep or special diet before surgery You have symptoms of COVID-19 such as a new or worsening cough, shortness of breath, fever, body aches, loss of taste or smell, diarrhea or vomiting, or sore throat. You have a household contact with COVID-19. You test positive for COVID-19. 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 Vitals: 06/04/23 1144 Weight: 94.8 kg (209 lb) Height: 160 cm (5' 3 ) CHEST CIRCUMFERENCE: N/A Social History Tobacco Use Smoking Status Former Current packs/day: 0.00 Average packs/day: 1 pack/day for 27.0 years (27.0 ttl pk-yrs) Types: Cigarettes, Vaping Start date: 1994 Quit date: 2021 Years since quittin.1 Passive exposure: Never Smokeless Tobacco Never Substance and Sexual Activity Drug Use Never Alcohol Use Q1: How often do you have a drink containing alcohol?: Monthly or less Q2: How many drinks containing alcohol do you have on a typical day when you are drinking?: 1 or 2 Q3: How often do you have six or more drinks on one occasion?: Never Outpatient Medications Marked as Taking for the 06/18/23 encounter (Hospital Encounter) Medication Sig Dispense Refill ascorbic acid (vitamin C) 1,000 mg tablet Take 1 tablet (1,000 mg total) by mouth every morning atorvastatin (LIPITOR) 10 mg tablet Take 1 tablet (10 mg total) by mouth nightly BIOTIN ORAL Take 1 tablet by mouth every morning buPROPion XL (WELLBUTRIN XL) 150 mg 24 hr tablet Take 1 tablet (150 mg total) by mouth every morning calcium carbonate (CALCIUM 500 ORAL) Take 1 tablet by mouth every morning cetirizine (ZyrTEC) 10 mg tablet Take 1 tablet (10 mg total) by mouth nightly cholecalciferol 25 mcg (1,000 unit) tablet Take 1 tablet (1,000 Units total) by mouth every morning cyclobenzaprine (FLEXERIL) 5 mg tablet Take 1-2 tablets (5-10 mg total) by mouth 3 (three) times a day as needed for muscle spasms (Patient taking differently: Take 1-2 tablets (5-10 mg total) by mouth 2 (two) times a day) 40 tablet 1 escitalopram (LEXAPRO) 5 mg tablet Take 1 tablet (5 mg total) by mouth nightly ferrous sulfate 325 mg (65 mg of elemental iron) tablet Take 1 tablet (325 mg total) by mouth everymorning lamoTRIgine (LaMICtal) 25 mg tablet Take 2 tablets (50 mg total) by mouth nightly meloxicam (MOBIC) 15 mg tablet Take 1 tablet (15 mg total) by mouth daily (Patient taking differently: Take 1 tablet (15 mg total) by mouth nightly) 30 tablet 1 montelukast (SINGULAIR) 10 mg tablet Take 1 tablet (10 mg total) by mouth nightly omeprazole (PriLOSEC) 10 mg capsule Take 1 capsule (10 mg total) by mouth nightly traZODone (DESYREL) 50 mg tablet Take 1 tablet (50 mg total) by mouth nightly at bedtime vitamin B complex capsule Take 1 capsule by mouth every morning vitamin K2 40 mcg tablet Take 1 tablet by mouth every morning Implants Type Not Specified [employer] System Biceps Rowland Slotted Drill Guide 1.9mm Drill Fibertak Ar- 3670 - [id number] - Implanted (Left) Shoulder Inventory item: [employer] System Biceps Rowland Slotted Drill Guide 1.9mm Drill Fibertak AR-3670 Model/Cat number: [id number] Sports Administrator: [employer] Lot number: [id number] Size: 1.9mm As of 03/27/2023 Status: Implanted [employer] Arthrex Fibertak Tape 3 Load Rotator Cuff Rowland Suture Sterile Latex Free Ar-3633 - [id number] - Implanted (Left) Shoulder Inventory item: [employer] Arthrex Fibertak Tape 3 Load Rotator Cuff Rowland Suture Sterile Latex Free AR-3633 Model/Cat number: [id number] Sports Administrator: [employer] Lot number: [id number] Size: 2.6mm As of 03/27/2023 Status: Implanted [employer] Swivelock C 4.75mm 19.1mm Closed Eyelet Vent Rowland Suture Ar- [id number] - [id number] - Implanted (Left) Shoulder Inventory item: [employer] Swivelock C 4.75mm 19.1mm Closed Eyelet Vent Rowland Suture [id number] Model/Cat number: [id number] Sports Administrator: [employer] Lot number: [id number] Size: 4.75 x 19.1 mm As of 03/27/2023 Status: Implanted SKIN Piercings Remaining: Yes Wound (LDAs) Type of Wound (LDA): (patient denies) SCREENINGS Yi index score: 100 PATIENT CARE PLANNING Advance Directives (For Healthcare) Have you reviewed your Advance Directive and is it valid for this stay?: Not applicable Advance Directive: Patient does not have advance directive, Patient refused information Information Provided on Healthcare Directives: No 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 Communication Barriers: Visual Communication Needs: Glasses Assistive Devices/DME: Eyeglasses Hearing - Right Ear: Functional Hearing - Left Ear: Functional Discharge Planning Type of Residence: Private residence Living Arrangements: Spouse/significant other Support Systems: Spouse/significant other Patient expects to be discharged to:: Private residence (, 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 Arrival time and surgical time will be provided to the patient by their surgeon. You should wear clothing that is clean, loose, comfortable and easy to get in and out of on the dayof surgery. You should remove nail coverings, artificial nails and nail palestinian prior to the day of surgery. You should leave your valuables and any jewelry at home. No metal or piercings are allowed in the operating room. 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 You should bring a complete, up-to-date, list of all your medications on the day of surgery, including any over the counter medications or supplements you may take. Please note on your medication list, the last date & time you took each medication. The healthcare team, on the day of surgery, will ask for this information. You should bring your Advanced Directive and/or Living Will with you on the day of surgery if you have not verified a copy is already in your Epic Chart. If you are having surgery at [facility], please arrive on the day of surgery with the name and phone number of your local 24 hour pharmacy. Due to evening discharges, your routine pharmacy may be closed. In order to obtain your prescriptions that evening, your surgeon may need to send prescriptions to this pharmacy or have you take prescriptions to this pharmacy when you are discharged. Without this information, you may not be able to obtain your prescriptions that evening. A Guide for Patients Having Surgery: Your Pathway to Excellent Care OUR GOAL IS TO PROVIDE YOU WITH EXCELLENT CARE Use this guide to learn about what you can do before, during and after surgery to help your recovery. You are the most important person on your health care team. By becoming informed and involved, you can contribute to the success of your surgery. If your surgeon's directions are different than those in this guide, talk with your nurse or surgeon to confirm the information. It is important that you understand how to take care of yourself at home after surgery. Be sure to bring this guide with you on the day of surgery and take it home with you after surgery. Write down questions for your nurse or surgeon on the last page of this booklet. Important pages to be reviewed BEFORE surgery: Page 1: QR codes for Surgery Center maps Page 3: Types of Anesthesia Page 5: Tips for the day & night before surgery Page 6: When to stop eating BEFORE surgery and examples of clear liquids Page 7-10: Preventing Infection: Chlorhexidine Gluconate (CHG) Bathing Instructions You may access A Guide for Patients Having Surgery: Your Pathway to Excellent Care by the followinglink: [email or web address] How To Prepare Your Skin For Surgery Below is the Pre-Surgical Bathing Protocol you should follow for your surgery. If your surgeon provides you different bathing instructions, please follow your surgeon's orders. Normal Bathing: Bathe with regular soap the night before and/or day of surgery. Normal Bathing Protocol Bathe with your normal soap the night before and/or the morning of surgery. Wear clean clothes or pajamas to sleep in. After showering DO NOT put on deodorant, hair products, conditioners, lotions, creams, powders, Vaseline or any non-essential products. Remove nail coverings, artificial nails and nail palestinian. Place clean linens on your bed the night before surgery. Shaving: You may shave your face, legs and underarms during your evening shower. Avoid shaving on the day of surgery. Travel/Exposure Screening: Travel Screening Have you traveled outside the [place] in the last 6 months?: No Exposure Screening Have you been exposed to anyone who is sick in the last 30 days?: No Have you been exposed to or tested positive for COVID-19 within the last 10 days?: No Infectious Disease Screening Are you having any of the following:: None As of 02/07/2022 any COVID TESTING required for surgery will be set up by your surgeon's office. Please reach out to your surgeon's office if you develop any COVID symptoms, test positive for COVID or are exposed to a COVID positive person. If you have questions, please call the CPAP Staff at [phone], Sunday-Sunday 8am-4:30pm. All patients should read the below section: COVID 19 Updates & Visitor Policy: Please access [email or web address] for the most updated information. Information on [facility] & the [facility] Center: Please view [email or web address] (Patient & Visitor Information) for additional details regarding Advanced Directive forms, AWARE, directions, parking information, lodging, Internet access, dining and more. Information on [facility] or [facility] ([facility]): Please view [email or web address] (Patient and Visitor Information) for parking/directions and more. For MyChart information, to activate account or password recovery, please go to [email or web address] or call [phone] (toll-free: [phone]), Sun- Sunday 8am-5pm. Information for Suicide Prevention: National Suicide Prevention Lifeline (3-552- 002-EKWT (0958)) or call or text [employer]. Chat resources: [employer]Bench[employer]. Surgery Times: For patients having surgery @ [facility] or [facility] ([facility]), if your surgeon's office has not notified you of your surgery time by NOON THE BUSINESS DAY BEFORE your surgery, please call [phone] and ask for your surgeon's office Dr. Truong. The [facility] Planning ([facility]) does not provide arrival times for the day of surgery or provide the duration of surgery. This information is provided by your surgeon'soffice or by the center where you are having surgery. We appreciate your understanding. 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 documented in this encounter Plan of Treatment Not on file documented as of this encounter Procedures Procedure Name Priority Date/Time Associated Diagnosis Comments FL FLUOROSCOPY < 1 HOUR IP Routine 06/18/2023 10:21 AM FLOW 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 INSERTION/REMOVAL INTERSTIM DEVICE STAGE 2 06/18/2023 7:30 AM FLOW 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 Urinary retention Battery end of life of spinal cord stimulator Special Needs [employer] rep available for the case documented in this encounter Results * FL Fluoroscopy < 1 Hour (06/18/2023 10:21 AM FLOW 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) Narrative [facility] - 06/18/2023 10:22 AM FLOW 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 The images from this study are not interpreted by Radiology. ??Please refer to the physician's procedure / OR operative note. Umesh Truong MD IMG FLUOROSCOPY PROCEDURES Fin al Result [facility] documented in this encounter Visit Diagnoses Diagnosis Urinary retention- Primary Unspecified retention of urine Urinary retention Unspecified retention of urine Battery end of life of spinal cord stimulator Battery end of life of spinal cord stimulator documented in this encounter Admitting Diagnoses Diagnosis Urinary retention Unspecified retention of urine Battery end of life of spinal cord stimulator documented in this encounter Administered Medications Inactive Administered Medications - up to 3 most recent administrations Medication Order MAR Action Action Date Dose Rate Site acetaminophen (TYLENOL) tablet 1,000 mg 1,000 mg, oral, Once, On Sun06/18/23 at 0700, For 1 dose, Pre-Op, If patient has not taken home dose , Indications: Pre-Emptive AnalgesiaIndications:Pre-Emptive Analgesia Given 06/18/2023 6:51 AM FLOW 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 1,000 mg acetaminophen (TYLENOL) tablet 1,000 mg 1,000 mg, oral, Every 6 hours scheduled, First dose on Sun06/18/23 at 1300, Indications: PainIndications:Pain Given 06/19/2023 6:41 AM FLOW 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 1,000 mg Given 06/18/2023 11:08 PM FLOW 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 1,000 mg Given 06/18/2023 6:07 PM FLOW 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 1,000 mg albuterol HFA (PROVENTIL HFA,VENTOLIN HFA,PROAIR HFA) 90 mcg/actuation inhaler 2 puff 2 puff, inhalation, Every 6 hours 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), wheezing, shortness of breath, Starting on Sun06/18/23 at 1227, Indications: Acute Asthma AttackIndications:Acute Asthma Attack ampicillin-sulbactam (UNASYN) 3 g/110 mL in sodium chloride 0.9% (premix) 3 g 3 g, intravenous, Administer over 30 Minutes, Every 6 hours scheduled, First dose on 3/4/24 at 1300, For 24 hours, Indications: Prophylaxis, SurgicalIndications:Prophylaxis, Surgical New Bag 06/19/2023 6:42 AM FLOW 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 3 g New Bag 06/18/2023 11:59 PM FLOW 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 3 g New Bag 06/18/2023 6:07 PM FLOW 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 3 g atorvastatin (LIPITOR) tablet 10 mg 10 mg, oral, Nightly, First dose on Sun06/18/23 at 2100, Indications: hyperlipidemiaIndications:hyperlipidemia Given 06/18/2023 8:53 PM FLOW 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 10 mg buPROPion XL (WELLBUTRIN XL) 24 hour tablet 150 mg 150 mg, oral, Every morning, First dose on Sun06/18/23 at 1300, Do not crush, chew, cut, dissolve, open or otherwise manipulate tablet/capsule., Indications: Anxiety with DepressionIndications:Anxiety with Depression Given 06/19/2023 7:3 3 AM FLOW 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 150 mg Given 06/18/2023 2:46 PM FLOW 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 150 mg dextrose 5% and Lactated Ringer's infusion 75 mL/hr, intravenous, Continuous, Starting on Sun06/18/23 at 1215, For 12 hours, Phase I & Post-op Floor New Bag 06/18/2023 1:01 PM FLOW 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 75 mL/hr 75 mL/hr New Bag 06/18/2023 11:47 AM FLOW 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 75 mL/hr 75 mL/hr enoxaparin (LOVENOX) syringe 40 mg 40 mg, subcutaneous, Daily (for enoxaparin), First dose on Sun06/18/23 at 2100, Indications: Deep Vein Thrombosis PreventionIndications:Deep Vein Thrombosis Prevention Given 06/18/2023 8:54 PM FLOW 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 40 mg Left Lower Abdomen escitalopram (LEXAPRO) tablet 5 mg 5 mg, oral, Nightly, First dose on Sun06/18/23 at 2100, Indications: Anxiety with DepressionIndications:Anxiety with Depression Given 06/18/2023 8:53 PM FLOW 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 5 mg HYDROmorphone (DILAUDID) injection 0.2 mg 0.2 mg, intravenous, Administer over 2 Minutes, Every 10 min PRN, 2nd line for pain, Starting on Sun06/18/23 at 1108, Phase I, Switch to 2nd line analgesic order if pain is uncontrolled or increasing after 2 doses. Notify Anesthesiologist if total PACU dose reaches 2 mg and pain score 5/10 or more., Indications: PainIndications:Pain Given 06/18/2023 11:36 AM FLOW 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 0.2 mg Given 06/18/2023 11:26 AM FLOW 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 0.2 mg ketorolac (TORADOL) 15 mg/mL injection 15 mg 15 mg, intravenous, Every 6 hours scheduled, First dose on Sun06/18/23 at 1300, For 3 days, For Adult IV push, administer over 15 seconds, Indications: PainIndications:Pain Given 06/19/2023 6:42 AM FLOW 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 15 mg Given 06/18/2023 11:08 PM FLOW 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 15 mg Given 06/18/2023 6:07 PM FLOW 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 15 mg Lactated Ringer's (LR) infusion 30 mL/hr, intravenous, Continuous, Starting on Sun06/18/23 at 0700, Pre-Op Rate/Dose Verify 06/18/2023 7:25 AM FLOW 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 30 m L/hr New Bag 06/18/2023 6:36 AM FLOW 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 30 mL/hr 30 mL/hr New Bag 06/18/2023 5:57 AM FLOW 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 150 mL/hr lamoTRIgine (LaMICtal) tablet 50 mg 50 mg, oral, Nightly, First dose on Sun06/18/23 at 2100, Indications: MoodIndications:Mood Given 06/18/2023 8:53 PM FLOW 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 50 mg montelukast (SINGULAIR) tablet 10 mg 10 mg, oral, Nightly, First dose on Sun06/18/23 at 2100, Indications: Seasonal Allergic RhinitisIndications:Seasonal Allergic Rhinitis Given 06/18/2023 8:53 PM FLOW 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 10 mg ondansetron (ZOFRAN) injection 4 mg 4 mg, intravenous, Administer over 2 Minutes, Every 6 hours PRN, nausea, vomiting, if not tolerating PO, Starting on Sun06/18/23 at 1221, Indications: nausea and vomitingIndications:nausea and vomiting ondansetron ODT (ZOFRAN-ODT) disintegrating tablet 4 mg 4 mg, oral, Every 6 hours PRN, nausea, vomiting, Starting on Sun06/18/23 at 1221, Indications: nausea and vomitingIndications:nausea and vomiting oxyCODONE (ROXICODONE) tablet 5 mg 5 mg, oral, Once as needed, 1st line for pain, Starting on Sun06/18/23 at 1108, For 1 dose, Phase I, When able to tolerate PO. May repeat in 1 hour if pain is uncontrolled or increasing after 1st dose., Indications: PainIndications:Pain Given 06/18/2023 11:27 AM FLOW 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 5 mg oxyCODONE (ROXICODONE) tablet 5 mg 5 mg, oral, Every 4 hours PRN, 1st line for pain, Starting on Sun06/18/23 at 1221, May repeat in 1 hour if pain is uncontrolled or increasing. Max 2 doses within 1 dosing interval., Indications: PainIndications:Pain Given 06/18/2023 6:07 PM FLOW 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 5 mg Given 06/18/2023 1:00 PM FLOW 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 [address] (PROTONIX) extended release tablet 40 mg 40 mg, oral, Daily, First dose on Sun06/18/23 at 1300, Do not crush, chew, cut, dissolve, open or otherwise manipulate tablet/capsule., Indications: Treatment of Non-Bleeding Gastric DisorderIndications:Treatment of Non-Bleeding Gastric Disorder Given 06/19/2023 7:34 AM FLOW 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 40 mg Given 06/18/2023 1:01 PM FLOW 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 40 mg polyethylene glycol (MIRALAX) packet 17 g 17 g, oral, Daily, First dose on Sun06/18/23 at 1300, Indications: constipationIndications:constipation Given 06/19/2023 7:33 AM FLOW 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 17 g traZODone (DESYREL) tablet 50 mg 50 mg, oral, Nightly PRN, sleep, depression, Starting on Sun06/18/23 at 1221, Indications: insomnia associated with depressionIndications:insomnia associated with depression Given 06/18/2023 9:55 PM FLOW 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 50 mg vancomycin 1500 mg/515 mL in sodium chloride 0.9% (premix) 1,500 mg 1,500 mg, intravenous, Administer over 90 Minutes, Once, On Sun06/18/23 at 0700, For 1 dose, Pre-Op, Administer within 120 minutes of incision., Indications: Prophylaxis, SurgicalIndications:Prophylaxis, Surgical New Bag 06/18/2023 6:48 AM FLOW 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 1,500 mg vancomycin 1500 mg/515 mL in sodium chloride 0.9% (premix) 1,500 mg 1,500 mg (rounded from 1,422 mg = 15 mg/kg ? 94.8 kg), intravenous, Administer over 90 Minutes, Every 12 hours, First dose on Sun06/18/23 at 1900, For 24 hours, Indications: Prophylaxis, SurgicalIndications:Prophylaxis, Surgical New Bag 06/19/2023 7:23 AM FLOW 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 1,500 mg New Bag 06/18/2023 6:07 PM FLOW 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 1,500 mg documented in this encounter Discontinued Medications Medication Sig Discontinue Reason Start Date End Da te estradioL (ESTRACE) 2 mg tablet Take 1 tablet (2 mg total) by mouth daily 08/02/2022 06/04/2023 traMADoL (ULTRAM) 50 mg tablet Take 1 tablet (50 mg total) by mouth every 6 (six) hours as needed for pain 04/10/2023 06/04/2023 documented as of this encounter Historical Medications * This list may reflect changes made after this encounter. BIOTIN ORALIndications:s upplement Take 1 tablet by mouth every morning added in this encounter Active and Recently Administered Medications Times are shown in FLOW 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. Scheduled Medication Order 06/17/2023 06/18/2023 06/19/2023 acetaminophen (TYLENOL) tablet 1,000 mg (COMPLETED) 1,000 mg, oral, Once, On Sun06/18/23 at 0700, For 1 dose, Pre-Op, If patient has not taken home dose , Indications: Pre-Emptive Analgesia 0651 (Given - Provider: Jg Cotter RN) acetaminophen (TYLENOL) tablet 1,000 mg 1,000 mg, oral, Every 6 hours scheduled, First dose on Sun06/18/23 at 1300, Indications: Pain 1300 (Given - Provider: Falguni Javier RN)1807 (Given - Provider: Falguni Javier RN)2308 (Given - Provider: Amy Lennon, [place]) 0641 (Given - Provider: Amy Lennon, RN) ampicillin-sulbactam (UNASYN) 3 g/110 mL in sodium chloride 0.9% (premix) 3 g (COMPLETED) 3 g, intravenous, Administer over 30 Minutes, Once, On Sun06/18/23 at 0700, For 1 dose, Pre-Op, Administer within 60 minutes of incision., Indications: Prophylaxis, Surgical 0738 (Given - Provider: Sally Donnelly CRNA)0936 (Given - Provider: Sally Donnelly CRNA) ampicillin-sulbactam (UNASYN) 3 g/110 mL in sodium chloride 0.9% (premix) 3 g (COMPLETED) 3 g, intravenous, Administer over 30 Minutes, Every 6 hours scheduled, First dose on Sun06/18/23 at 1300, For 24 hours, Indications: Prophylaxis, Surgical 1446 (New Bag - Provider: Falguni Javier RN)1516 (Stopped - Provider: Falguni Javier RN)1807 (New Bag - Provider: Falguni Javier RN)1839 (Stopped - Provider: Falguni Javier RN)2359 (New Bag - Provider: Amy Lennon, [place]) 0100 (Stopped - Provider: Amy Lennon RN)0642 (New Bag - Provider: Amy Lennon RN)0722 (Stopped - Provider: Amy Lennon RN) atorvastatin (LIPITOR) tablet 10 mg 10 mg, oral, Nightly, First dose on Sun06/18/23 at 2100, Indications: hyperlipidemia 2052 (Given - Provider: Ambar Hawkins RN) buPROPion XL (WELLBUTRIN XL) 24 hour tablet 150 mg 150 mg, oral, Every morning, First dose on Sun06/18/23 at 1300, Do not crush, chew, cut, dissolve, open or otherwise manipulate tablet/capsule., Indications: Anxiety with Depression 1446 (Given - Provider: Falguni Javier RN) 0733 (Given - Provider: Falguni Javier RN) enoxaparin (LOVENOX) syringe 40 mg 40 mg, subcutaneous, Daily (for enoxaparin), First dose on Sun06/18/23 at 2100, Indications: Deep Vein Thrombosis Prevention 2053 (Given - Provider: Ambar Hawkisn, [place]) escitalopram (LEXAPRO) tablet 5 mg 5 mg, oral, Nightly, First dose on Sun06/18/23 at 2099, Indications: Anxiety with Depression 2052 (Given - Provider: Ambar Hawkins, [place]) ketorolac (TORADOL) 15 mg/mL injection 15 mg 15 mg, intravenous, Every 6 hours scheduled, First dose on Sun06/18/23 at 1300, For 3 days, For Adult IV push, administer over 15 seconds, Indications: Pain 1301 (Given - Provider: Falguni Javier RN)1807 (Given - Provider: Falguni Javier RN)2308 (Given - Provider: Amy Lennon RN) 0642 (Given - Provider: Amy Lennon RN) lamoTRIgine (LaMICtal) tablet 50 mg 50 mg, oral, Nightly, First dose on Sun06/18/23 at 2100, Indications: Mood 2052 (Given - Provider: Ambar Hawkins RN) montelukast (SINGULAIR) tablet 10 mg 10 mg, oral, Nightly, First dose on Sun06/18/23 at 2100, Indications: Seasonal Allergic Rhinitis 2052 (Given - Provider: Ambar Hawkins RN) pantoprazole DR (PROTONIX) extended release tablet 40 mg 40 mg, oral, Daily, First dose on Sun06/18/23 at 1300, Do not crush, chew, cut, dissolve, open or otherwise manipulate tablet/capsule., Indications: Treatment of Non-Bleeding Gastric Disorder 1301 (Given - Provider: Falguni Javier RN) 0734 (Given - Provider: Falguni Javier RN) polyethylene glycol (MIRALAX) packet 17 g 17 g, oral, Daily, First dose on Sun06/18/23 at 1300, Indications: constipation 1254 (Not Given - Provider: Falguni Javier RN - Reason: Patient/family refused) 0733 (Given - Provider: Falguni Javier RN) sulfamethoxazole-trimethopri m (BACTRIM DS) 800-160 mg per tablet 160 mg of trimethoprim(Linked Group 1) 160 mg of trimethoprim, oral, 2 times daily, First dose on Sun06/19/23 at 1900, Indications: Prophylaxis, Surgical vancomycin 1500 mg/515 mL in sodium chloride 0.9% (premix) 1,500 mg (COMPLETED) 1,500 mg, intravenous, Administer over 90 Minutes, Once, On Sun06/18/23 at 0700, For 1 dose, Pre-Op, Administer within 120 minutes of incision., Indications: Prophylaxis, Surgical 0648 (New Bag - Provider: Jg Cotter RN) vancomycin 1500 mg/515 mL in sodium chloride 0.9% (premix) 1,500 mg (COMPLETED)(Linked Group 1) 1,500 mg (rounded from 1,422 mg = 15 mg/kg ? 94.8 kg), intravenous, Administer over 90 Minutes, Every 12 hours, First dose on Sun06/18/23 at 1900, For 24 hours, Indications: Prophylaxis, Surgical 1807 (New Bag - Provider: Falguni Javier, RN)1937 (Stopped - Provider: Ambar Hawkins, [place]) 0723 (New Bag - Provider: Amy Lennon, [place])0903 (Stopped - Provider: Falguni Javier RN) Continuous Medication Order 06/17/2023 06/18/2023 06/19/2023 dextrose 5% and Lactated Ringer's infusion (CANCELED) 75 mL/hr, intravenous, Continuous, Starting on Sun06/18/23 at 1215, For 12 hours, Phase I & Post-op Floor 1147 (New Bag - Provider: Alida Lugo)1301 (New Bag - Provider: Falguni Javier, [place])1457 (Stopped - Provider: Falguni Javier RN) Lactated Ringer's (LR) infusion (CANCELED) 30 mL/hr, intravenous, Continuous, Starting on Sun06/18/23 at 0700, Pre-Op 0557 (New Bag - Provider: Randolph Donnelly CRNA)0636 (New Bag - Provider: Jg Cotter RN)0725 (Rate/Dose Verify - Provider: Sally Donnelly CRNA)1015 (Stopped - Provider: Sally Donnelly CRNA) PRN Medication Order 06/17/2023 06/18/2023 06/19/2023 albuterol HFA (PROVENTIL HFA,VENTOLIN HFA,PROAIR HFA) 90 mcg/actuation inhaler 2 puff 2 puff, inhalation, Every 6 hours 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), wheezing, shortness of breath, Starting on Sun06/18/23 at 1227, Indications: Acute Asthma Attack BUPivacaine (MARCAINE) 0.25 % (2.5 mg/mL) preservative free injection (CANCELED) As needed, Starting on Sun06/18/23 at 0803, Intra-Op 0803 (Given - Provider: Umesh Truong MD) calcium carbonate (TUMS) chewable tablet 1,000 mg 1,000 mg (400 mg of elemental calcium), oral, 3 times daily PRN, indigestion, heartburn, Starting on Sun06/18/23 at 1221 ceFAZolin (ANCEF) injection (CANCELED) Administer over 3 Minutes, As needed, Starting on Sun06/18/23 at 0802, Intra-Op 0802 (Given - Provider: Umesh Truong MD - Comment: MIXED WITH 500ML STERILE WATER FOR IRRIGATION) cyclobenzaprine (FLEXERIL) tablet 5 mg 5 mg, oral, 3 times daily PRN, muscle spasms, Starting on Sun06/18/23 at 1221 HYDROmorphone (DILAUDID) injection 0.2 mg (CANCELED) 0.2 mg, intravenous, Administer over 2 Minutes, Every 10 min PRN, 2nd line for pain, Starting on Sun06/18/23 at 1108, Phase I, Switch to 2nd line analgesic order if pain is uncontrolled or increasing after 2 doses. Notify Anesthesiologist if total PACU dose reaches 2 mg and pain score 5/10 or more., Indications: Pain 1126 (Given - Provider: Alida Lugo)1136 (Given - Provider: Alida Lugo) labetaloL (NORMODYNE,TRANDATE) injection 10 mg 10 mg, intravenous, at 60 mL/hr, Administer over 2 Minutes, Every 1 hour PRN, high blood pressure, SBP > 170, hold for HR < 50, Starting on Sun06/18/23 at 1221, For 4 doses ondansetron (ZOFRAN) injection 4 mg(Linked Group 2) 4 mg, intravenous, Administer over 2 Minutes, Every 6 hours PRN, nausea, vomiting, if not tolerating PO, Starting on Sun06/18/23 at 1221, Indications: nausea and vomiting ondansetron ODT (ZOFRAN-ODT) disintegrating tablet 4 mg(Linked Group 2) 4 mg, oral, Every 6 hours PRN, nausea, vomiting, Starting on Sun06/18/23 at 1221, Indications: nausea and vomiting oxyCODONE (ROXICODONE) tablet 5 mg (COMPLETED) 5 mg, oral, Once as needed, 1st line for pain, Starting on Sun06/18/23 at 1108, For 1 dose, Phase I, When able to tolerate PO. May repeat in 1 hour if pain is uncontrolled or increasing after 1st dose., Indications: Pain 1127 (Given - Provider: Alida Lugo) oxyCODONE (ROXICODONE) tablet 5 mg 5 mg, oral, Every 4 hours PRN, 1st line for pain, Starting on Sun06/18/23 at 1221, May repeat in 1 hour if pain is uncontrolled or increasing. Max 2 doses within 1 dosing interval., Indications: Pain 1300 (Given - Provider: Falguni Javier, [place])1807 (Given - Provider: Falguni Javier RN) phenoL (CHLORASEPTIC) 1.4 % oral spray 2 spray 2 spray, mouth/throat, Every 2 hours PRN, sore throat, Starting on Sun06/18/23 at 1221 polyvinyl alcohol-povidone (REFRESH CLASSIC) 1.4-0.6 % ophthalmic solution 2 drop 2 drop, each eye, 4 times daily PRN, dry eyes, Starting on Sun06/18/23 at 1221 ramelteon (ROZEREM) tablet 8 mg 8 mg, oral, Nightly PRN, sleep, Starting on Sun06/18/23 at 1221, Indications: Sleep-Onset Insomnia sterile water irrigation (CANCELED) As needed, Starting on Sun06/18/23 at 0804, Intra-Op 0804 (Given - Provider: Umesh Truong MD) traZODone (DESYREL) tablet 50 mg 50 mg, oral, Nightly PRN, sleep, depression, Starting on Sun06/18/23 at 1221, Indications: insomnia associated with depression 2154 (Given - Provider: Ambar Hawkins RN) Linked Groups Order Group 1: vancomycin 1500 mg/515 mL in sodium chloride 0.9% (premix) 1,500 mg (COMPLETED)Jump to med 1,500 mg (rounded from 1,422 mg = 15 mg/kg ? 94.8 kg), intravenous, Administer over 90 Minutes, Every 12 hours, First dose on Sun06/18/23 at 1900, For 24 hours, Indications: Prophylaxis, Surgical Followed by sulfamethoxazole-trimethoprim (BACTRIM DS) 800-160 mg per tablet 160 mg of trimethoprimJump to med 160 mg of trimethoprim, oral, 2 times daily, First dose on Sun06/19/23 at 1900, Indications: Prophylaxis, Surgical Group 2: ondansetron ODT (ZOFRAN-ODT) disintegrating tablet 4 mgJump to med 4 mg, oral, Every 6 hours PRN, nausea, vomiting, Starting on Sun06/18/23 at 1221, Indications: nausea and vomiting Or ondansetron (ZOFRAN) injection 4 mgJump to med 4 mg, intravenous, Administer over 2 Minutes, Every 6 hours PRN, nausea, vomiting, if not tolerating PO, Starting on Sun06/18/23 at 1221, Indications: nausea and vomiting documented in this encounter Orders Medications Ordered That Lyle ht Not Have Been Administered Count Last Ordered Date First Ordered Date albuterol HFA (PROVENTIL HFA ,VENTOLIN HFA,PROAIR HFA) 90 mcg/actuation inhaler 2 puff 2 06/18/2023 ampicillin-sulbactam (UNASYN ) 3 g/110 mL in sodium chloride 0.9% (premix) 3 g 1 06/18/2023 BUPivacaine (MARCAINE) 0.25 % (2.5 mg/mL) preservative free injection 1 06/18/2023 calcium carbonate (TUMS) juan wable tablet 1,000 mg 1 06/18/2023 Carrier Fluids for Secondary Infusion - 0.9% Sodium Chloride 1 06/18/2023 ceFAZolin (ANCEF) injection 1 06/18/2023 cyclobenzaprine (FLEXERIL) tablet 5 mg 1 fentaNYL (SUBLIMAZE) preserv ative free injection 50 mcg 1 06/18/2023 HYDROmorphone (DILAUDID) injection 0.4 mg 1 06/18/2023 labetaloL (NORMODYNE,TRANDAT E) injection 10 mg 1 06/18/2023 Lactated Ringer's (LR) infusion 1 lidocaine (PF) (XYLOCAINE) 1 0 mg/mL (1 %) preservative free injection 2-10 mg 1 06/18/2023 morphine injection 2 mg 1 06/18/2023 naloxone (NARCAN) 0.4 mg/mL injection 0.04-0.4 mg 06/18/2023 ondansetron (ZOFRAN) injection 4 mg 2 06/17 ondansetron ODT (ZOFRAN-ODT) disintegrating tablet 4 mg 1 06/18/2023 phenoL (CHLORASEPTIC) 1.4 % oral spray 2 spray 1 06/18/2023 polyvinyl alcohol-povidone ( REFRESH CLASSIC) 1.4-0.6 % ophthalmic solution 2 drop 1 06/18/2023 prochlorperazine (COMPAZINE) injection 5 mg 1 06/18/2023 ramelteon (ROZEREM) tablet 8 mg 1 scopolamine patch 72 hour 1 patch 2 sodium chloride 0.9% flush 0.5-20 mL 2 07/2023 sterile water irrigation 1 06/18/2023 sulfamethoxazole-trimethopri m (BACTRIM DS) 800-160 mg per tablet 160 mg of trimethoprim 1 06/18/2023 Nursing Count Last Ordered Date First Orde red Date WEIGH PATIENT 1 06/18/2023 Admission Count Last Ordered Date First Orde red Date INITIATE OUTPATIENT IN A BED 1 06/18/2023 Discharge Count Last Ordered Date First Orde red Date DISCHARGE PATIENT 1 06/19/2023 ADT Patient Update Count Last Ordered Date Firs t Ordered Date PROVIDER TREATMENT TEAM 1 06/18/2023 documented in this encounter Care Teams Line Mover Relationship Specialty Start Date End Date Judith Walton NP [address] [place] [address] PCP - General 05/26/20 Khushbu Phan PA [address], [place] [address] Physician Engineering Inspection Assistant Orthopedic Surgery 03/27/23 documented as of this encounter
--- OUTSIDE RECORDS SUMMARY | 2024-04-12 13:17 | XMS_ITS | Encounter Summary ---
Author Organization [facility] Healthcare Address [address] [place] [id number] Care Team Providers Care Production Tool Engineer Name Role Phone Anton Judith Salgado NP Primary Care Provider + [phone] Khushbu Phan Unavailable [phone] Reason for Visit * Reason Comments Follow-up Encounter Details Date Type Department Care Team (Late st Contact Info) Description 08/03/2023 8:15 AM CDT Office Visit [facility] Orthopedics and Sports Medicine [address] [place] [address] [address] [place] [id number] Khushbu Phan PA [address] [place] [address] [address] [place] [address] Other specified aftercare following surgery (Primary Dx); History of arthroscopy of left shoulder; S/P left rotator cuff repair Social History Tobacco Use Types Packs/Day Years Used Date Smoking Tobacco: Former Cigarettes 05 12 1 995 - 2021 Vaping Started: 2021 [...] Pulse 86 08/03/2023 8:14 AM CDT Temperature - - Respiratory Rate - - Oxygen Saturation - - Inhaled Oxygen Concentration - - Weight 99.8 kg (220 lb) 08/03/2023 8:14 AM CDT Height 160 cm (5' 3 ) 08/03/2023 8:14 AM CDT Body Mass Index 38.97 08/03/2023 8:14 AM CDT documented in this encounter Ordered Prescriptions Prescription Sig Dispense Quantity Refills Last Filled Start Date End Date cyclobenzaprine (FLEXERIL) 5 mg tablet Take 1-2 tablets (5-10 mg total) by mouth 3 (three) times a day as needed for muscle spasms 40 tablet 1 08/03/2023 documented in this encounter Progress Notes * Khushbu Phan PA - 08/03/2023 8:15 AM CDT Images from the original note were not included. FOLLOW UP VISIT Subjective CHIEF COMPLAINT She had concerns including Follow-up of the Left Shoulder. HISTORY OF PRESENT ILLNESS Patient is 4 mos s/p left shoulder arthroscopy with subacromial decompression, distal clavicle excision, biceps tenodesis, full-thickness rotator cuff repair. Shoulder continues to improve; has d/c to HEP. ROM is better and strength is improving. Overall sheis better than she was prior to surgery. She feels good about her progress. Still taking meloxicam; muscle relaxer once daily Pain Assessment Pain Assessment: 0-10 Pain Score: 2 MEDICATIONS She has a current medication list which includes the following prescription(s): acetaminophen, albuterol hfa, ascorbic acid, atorvastatin, biotin, bupropion xl, calcium carbonate, cetirizine, cholecalciferol, escitalopram, ferrous sulfate, fluticasone propionate, ibuprofen, lamotrigine, meloxicam, montelukast, omeprazole, oxycodone, trazodone, vitamin b complex, vitamin k2, and cyclobenzaprine. REVIEW OF SYSTEMS Review of Systems Constitutional: Negative for chills, fatigue and fever. Respiratory: Negative for cough, chest tightness and shortness of breath. Musculoskeletal: Negative for arthralgias, gait problem, joint swelling and myalgias. Skin: Negative for rash and wound. Objective PHYSICAL EXAM BP 118/77 Pulse 86 Ht 160 cm (5' 3 ) Wt 99.8 kg (220 lb) BMI 38.97 kg/m?? Left shoulder Inspection Erythema: absent Edema: absent Effusion: absent Surgical scar/wound is present. The surgical scar/wound is healed and no evidence of infection. Scapulothoracic motion: normal Palpation Tenderness is absent. Range of motion The patient has reduced range of motion of the left shoulder. Active forward flexion: 160. The patient does not have pain with active forward flexion . Active external rotation at 90 degrees: 70. Active abduction: 150. The patient does not have pain with active abduction. Strength Abduction: 4/5 Internal rotation: 5/5 External rotation: 4/5 Supraspinatus: 4/5 Neurovascular The patient has normal vascular on the left side of their body. The patient has normal sensation on the left side of their body. REVIEW OF X-RAYS/STUDIES/LABS Assessment/Plan Ambar was seen today for follow-up. Diagnoses and all orders for this visit: Other specified aftercare following surgery History of arthroscopy of left shoulder S/P left rotator cuff repair Other orders - cyclobenzaprine (FLEXERIL) 5 mg tablet; Take 1-2 tablets (5-10 mg total) by mouth 3 (three) timesa day as needed for muscle spasms New Medications Ordered This Visit cyclobenzaprine (FLEXERIL) 5 mg tablet Sig: Take 1-2 tablets (5-10 mg total) by mouth 3 (three) times a day as needed for muscle spasms Dispense: 40 tablet Refill: 1 PLAN Discussed with patient and reviewed ongoing expectations. Post surgical recommendations and precautions reviewed. The patient understands that continuing their prescribed physical therapy exercises is a necessary part of recovery and will help them regain functional use of the extremity. They will continue advancing activities as tolerated and HEP. Reviewed ongoing medication management. Currently has 2 refills on her meloxicam. Refill provided for her muscle relaxer today. Risks vs. Benefits of continued pharmaceutical management discussed. She will plan to d/c medications after these remaining refills. Will d/c from post op care. She was advised to contact us sooner if any worsening symptoms or concerns. Questions answered and patient expressed understanding of plan. ANTHONY Batres documented in this encounter Plan of Treatment Not on file documented as of this encounter Visit Diagnoses Diagnosis Other specified aftercare following surgery- Primary History of arthroscopy of left shoulder S/P left rotator cuff repair documented in this encounter Discontinued Medications Medication Sig Discontinue Reason Start Date End Da te cyclobenzaprine (FLEXERIL) 5 mg tablet TAKE 1 TO 2 TABLETS(5 TO 10 MG) BY MOUTH THREE TIMES DAILY NEEDED FOR MUSCLE SPASMS Reorder 06/18/2023 08/03/2023 documented as of this encounter Care Teams Production Tool Engineer Relationship Specialty Start Date End Date Judith Walton NP [address] [place] [address] PCP - General 05/26/20 Khushbu Phan PA [address] [address] Physician Conveyor Belt Installer Orthopedic Surgery 03/27/23 documented as of this encounter
--- OUTSIDE RECORDS SUMMARY | 2024-04-12 13:17 | XMS_ITS | Encounter Summary ---
Author Organization [facility] Address [address] [place] [address] Phone Care Team Providers Care Railroad Car Truck Builder Name Role Phone Judith Walton NP Primary Care Provider [phone] Khushbu Phan Unavailable [phone] Reason for Visit * Reason Comments Follow-up Hx. Of Urinary Reten tion Interstim * Consultation (Routine) - Closed Specialty Diagnoses / Procedures Referred By Kody wall Referred To Contact Urology Diagnoses History of urinary retention Neuromuscular dysfunction of bladder, unspecified Judith Walton NP [address] [place] [address] Phone: tel: fax: [facility] (All Locations) Referral ID Status Reason Start Date Expiration Date V isits Requested Visits Authorized [id number] Closed Specialty Services Required 05/29/2023 06/27/2024 1 1 Encounter Details Date Type Department Care Team (Late st Contact Info) Description 07/02/2023 8:40 AM CDT Office Visit [facility] ([facility]) - [facility] Urology [address] [facility] 11th [place] [address] [place] [address] Elle Bernstein Rai, NP [address] [facility] [address] [place], [place] [id number] History of urinary retention; Neuromuscular dysfunction of bladder, unspecified Social History Tobacco Use Types Packs/Day Years [...] on file documented as of this encounter Patient Instructions * Patient Instructions* Elle Bernstein Rai, NP - 07/02/2023 8:40 AM CDT Sacral Nerve Stimulation WHAT YOU NEED TO KNOW: What I need to know about sacral nerve stimulation? Sacral nerve stimulation (SNS) is treatment forurinary retention without blockage, overactive bladder symptoms, and fecal incontinence. Overactivebladder symptoms include urinary urge incontinence and urinary frequency. Electrical impulses are sent directly to the sacral nerves to improve or restore bladder or bowel function. Sacral nerves arein your lower back. They control anus, rectum, and bladder functioning. SNS is done when medicine and behavior therapy do not help improve symptoms. Implantation of an SNS includes 2 stages. The first stage is a trial phase to see if SNS will improve your symptoms. The second stage involves implanting the stimulator. How do I prepare for sacral nerve stimulation? Your healthcare provider will talk to you about how to prepare for each stage of this procedure. He or she may tell you not to eat or drink anything after midnight on the day of your procedure. He or she will tell you what medicines to take or not takeon the day of your surgery. You may be given an antibiotic through your IV to help prevent a bacterial infection. What will happen during the first stage of SNS? You may be given general anesthesia to keep you asleep and free from pain during the procedure. You may instead be given local anesthesia to numb the procedure area. With local anesthesia, you may still feel pressure or pushing during the procedure, but you should not feel any pain. You will be placed on your stomach. A small incision will be made in your upper buttock. A temporary or permanent lead is placed into your lower back, through to your sacral nerves. Your incision will be closed with surgical glue or tape. The lead is connected to an external stimulator. Electrical impulses will be sent to the lead to stimulate your sacral nerves. Th e lead may be left in place for up to 4 weeks. What will happen after the first stage of SNS? You will be asked to keep a record of your symptoms and bladder or bowel function. You will be able to return to your usual daily activities after the procedure. You may be asked to avoid high-impact physical activities during the time that you have anexternal stimulator in place. What will happen during the second stage of SNS? You may be given general anesthesia to keep you asleep and free from pain during the procedure. You may instead be given local anesthesia to numb the procedure area. With local anesthesia, you may still feel pressure or pushing during the procedure, but you should not feel any pain. You will be placed on your stomach. Your healthcare provider will reopen the incision that was made during the first stage. A space is made just under your skin. The stimulator is connected to a permanent lead. Then, the stimulator is placed into the space and the space is closed with stitches. You will be given a programming device to adjust and turn the stimulator off and on as needed. What are the risks of SNS? You may have pain, discomfort and infection in the area where the stimulator was implanted. You may have an allergic reaction to the materials that the lead or stimulator is made from. You may have pain or feel a shock during stimulation. The lead may move and you may need to have the procedure done again. You cannot have an MRI of your abdomen or pelvis if you have a stimulator implanted. An MRI can cause the leads to heat up and cause problems with your stimulator. You may set off metal detectors at airports or theft detectors in stores. CARE AGREEMENT: You have the right to help plan your care. Learn about your health condition and how it may be treated. Discuss treatment options with your caregivers to decide what care you want to receive. You always have the right to refuse treatment. The above information is an certified medical aide only. It is not intended as medical advice for individual conditions or treatments. Talk to your doctor, nurse or pharmacist before following any medical regimen to see if it is safe and effective for you. ?? 2017 [employer] Information is for End User's use only and may not be sold, redistributed or otherwise used for commercial purposes. All illustrations and images included in CareNotes?? are the copyrighted property of [employer], [employer]. or [employer]. documented in this encounter Progress Notes * Elle Bernstein Rai, NP - 07/02/2023 8:40 AM CDT Images from the original note were not included. HPI: Ambar Ruiz is a 38 y.o. female here for follow up regarding interstim replacement for management of urinary retention, completed 06/18/23. She reports she is doing well with no complaints. ROS: A focused ROS was obtained, reviewed, and is negative except for what is noted in the HPI and can be found in the chart. UA: see lab results from today Physical examination: Physical Exam Constitutional: Appearance: Normal appearance. HENT: Head: Normocephalic. Nose: Nose normal. Eyes: Extraocular Movements: Extraocular movements intact. Pupils: Pupils are equal, round, and reactive to light. Pulmonary: Effort: Pulmonary effort is normal. Musculoskeletal: General: Normal range of motion. Cervical back: Normal range of motion. Skin: General: Skin is warm and dry. Comments: Site appears to be healing well. No erythema, drainage, tenderness, or warmth noted. Wound edges are closed. Neurological: General: No focal deficit present. Mental Status: She is alert and oriented to person, place, and time. Psychiatric: Mood and Affect: Mood normal. Behavior: Behavior normal. Thought Content: Thought content normal. Judgment: Judgment normal. Assessment and Plan: Diagnoses and all orders for this visit: History of urinary retention (Z87.898) - Ambulatory referral to Urology Neuromuscular dysfunction of bladder, unspecified (N31.9) - Ambulatory referral to Urology Doing well with no complaints. Can follow up PRN. [facility] [place] Division of Urologic Surgery [facility] Office: [phone] documented in this encounter Plan of Treatment Not on file documented as of this encounter Visit Diagnoses Diagnosis History of urinary retention Neuromuscular dysfunction of bladder, unspecified documented in this encounter Orders Outpatient Referral Count Last Ordered Date Fir st Ordered Date AMB REFERRAL TO UROLOGY 1 07/02/2023 documented in this encounter Care Teams Railroad Car Truck Builder Relationship Specialty Start Date End Date Judith Walton NP [address] [place] [address] PCP - General 05/26/20 Khushbu Phan PA [address] [facility] [address] [address] Physician Lace Roller Orthopedic Surgery 03/27/23 documented as of this encounter
--- OUTSIDE RECORDS SUMMARY | 2024-04-12 13:17 | XMS_ITS | Clinical Summary ---
Author Organization [facility] Address [address] [place] [address] Care Team Providers Care State Farm Agent Name Role Phone Judith Walton NP Primary Care Provider [phone] Khushbu Phan Unavailable [phone] Allergies Active Allergy Reactions Criticality Noted Date [...] Intramuscular 01/26/2018 Influenza, Trivalent, IM (MDV) 01/06/2017,2015 Surgical History Surgery Date Site/Laterality Comments BLADDER SURGERY 10/14/2017 - 11/13/2017 neurostimulator placement surgery HYSTERECTOMY 03/16/2018 - 04/15/2018 WISDOM TOOTH EXTRACTION 01/14/2002 - 02/13/2002 x4 TUBAL LIGATION 02/14/2017 - 03/15/2017 OVARIAN CYST SURGERY 02/15/2016 - 03/15/2016 ROTATOR CUFF REPAIR 03/16/2023 - 04/15/2023 Left Medical History Medical History Date Comments Anxiety Depression Asthma Hypercholesteremia Gastric reflux Hiatal hernia Anemia Migraines PONV (postoperative nausea and vomiting) Done well with scopolamine patch in the past GERD (gastroesophageal reflux disease) Family History Medical History Relation Name Comments Alzheimer's disease Father Atrial fibrillation Father Hypertension Father Stroke Father Atrial fibrillation Father's Brother Diabetes Maternal Grandmother Diverticulitis Mother Hiatal hernia Mother Alcohol abuse Other Arthritis Other Cancer Other Lung disease Other Mental illness Other Anesthesia problems Neg Hx Relation Name Status Comments Father Father's Brother Maternal Grandmother Mother Other Social History Tobacco Use Types Packs/Day Years Used Date Smoking Tobacco: Former Cigarettes 1 1 995 - 2021 Vaping Started: 2021 [...] on file Sexual Orientation Not on file Obstetrics History Last Filed Vital Signs Vital Sign Reading Time Taken Comments Blood Pressure 118/77 08/03/2023 8:14 AM CDT Pulse 86 08/03/2023 8:14 AM CDT Temperature 36.4 ??C (97.5 ??F) 06/19/2023 8:25 AM CS T Respiratory Rate 16 06/19/2023 7:35 AM SKIP TENDER Oxygen Saturation 97% 06/19/2023 8:25 AM SKIP TENDER Inhaled Oxygen Concentration - - Weight 99.8 kg (220 lb) 08/03/2023 8:14 AM CDT Height 160 cm (5' 3 ) 08/03/2023 8:14 AM CDT Body Mass Index 38.97 08/03/2023 8:14 AM CDT Plan of Treatment Health Maintenance Due Date Last Done Comments Breast Cancer Screening-Mammogram 1984 Depression Screening 1984 Hepatitis C Screening 1984 DTaP/Tdap/Td Vaccine (1 - Tdap) 1995 Varicella Vaccines (1 of 2 - 13+ 2-dose series) 1997 Hepatitis B Screening 2002 Regular Well Visit/Exam 18-64 2002 Influenza Vaccine (#1) 2023 8, 01/09/2017, 01/06/2017, Additional history exists HPV Vaccines Aged Out No longer eligi ble based on patient's age to complete this topic Pneumococcal vaccine <65 Aged Out No longer eligible based on patient's age to complete this topic Medical Devices Implanted Type Area Mechanical Meter Tester Device Identifier Shelf Expiration Date Model / Serial / Lot Medtronic Inc Kit Lead Neurostimulator Percutaneous 4.32mm Spacing Interstim Surescan 28cm [id number] - [id number] Implanted:Qty: 1 on 06/18/2023 by Umesh Truong MD at [facility] Neurostimulator N/A: Buttocks Medtronic Inc 02/05/2025 [id number] / / [id number] Description:Lead Neurostimul ator Percutaneous Medtronic Inc Generator Neurostimulator Bowel Bladder Recharge Free Interstim X [id number] - [id number] Implanted:Qty: 1 on 06/18/2023 by Umesh Truong MD at [facility] Neurostimulator N/A: Buttocks Medtronic Inc [id number] / / Description:GENERATOR NEUROS TIMULATOR BOWEL BLADDER RECHARGE Medtronic Inc Envelope Absrb 2.7x2.5in Antibacterial Tyrx Medium Strl [id number] - [id number] Implanted:Qty: 1 on 06/18/2023 by Umesh Truong MD at [facility] Other - see comments N/A: Buttocks Medtronic Inc 11/12/2023 [id number] / / Description:Neuro absorbable antibacterial envelop-medium Arthrex Inc System Biceps Debord Slotted Drill Guide 1.9mm Drill Fibertak Ar-3670 - [id number] Implanted:Qty: 1 on 03/27/2023 by Jayson Grijalva MD at [facility] Left: Shoulder Arthrex Inc 09/14/2027 [id number]-3670 / / [id number] Arthrex Inc Arthrex Fibertak Tape 3 Load Rotator Cuff Debord Suture Sterile Latex Free Ar-3633 - [id number] Implanted:Qty: 1 on 03/27/2023 by Jayson Grijalva MD at [facility] Left: Shoulder Ar[employer]rex Inc 05/16/2027 AR-3633 / / [id number] Ar[employer]rex Inc Swivelock C 4.75mm 19.1mm Closed Eyelet Vent Debord Suture Ar-2324bcc - [id number] Implanted:Qty: 1 on 03/27/2023 by Jayson Grijalva MD at [facility] Left: Shoulder Ar[employer]rex Inc 01/13/2027 [id number]-2324 [facility] / / [id number] Insurance [facility] [place] [address] [place] [address] CHOICE PLUS Advance Directives For more information, please contact: [phone] * Full Code (Latest Code Status on File) Date Activated Date Inactivated Comments 06/18/2023 12:21 PM 06/19/2023 3:28 PM Care Teams State Farm Agent Relationship Specialty Start Date End Date Walton, Judith Salgado NP [address] [place] [address] PCP - General 05/26/20 Khushbu Phan PA [address] [facility] [address] [address] Physician Line Inspector Orthopedic Surgery 03/27/23
--- OUTSIDE RECORDS SUMMARY | 2024-04-12 13:18 | XMS_ITS | Encounter Summary ---
Author Organization [facility] Address [address] [place] [address] Care Team Providers Care Windows Laptop Technician Name Role Phone Anton Judith Salgado NP Primary Care Provider [phone] Iram Phan Unavailable [phone] Reason for Referral * Physical Therapy (Routine) - Closed Specialty Diagnoses / Procedures Referred By Contadrian t Referred To Contact Physical Therapy Diagnoses History of arthroscopy of left shoulder Iram Phan PA [address] [place] [address] [place] [address] Phone: tel: fax: Iram Phan PA [address] [place] [address] [place] [address] Phone: tel: fax: Referral ID Status Reason Start Date Expiration Date V isits Requested Visits Authorized [id number] Closed Specialty Services Required 05/11/2023 06/09/2024 24 24 Question Answer PTRFR PT Evaluate and Treat Reason for Visit s/p ATS shoulder Therapy options discussed with patient? Yes Location provided for therapy services is: Patient requested/Patient preferred Please select the performing region: External Order [171] To loc/pos [facility] [place] [[id number]] To provider: IRAM PHAN [[id number]] # of visits: 24 GENCY MEDICINE SPECIALIST Encounter Details Date Type Department Care Team (Late st Contact Info) Description 05/11/2023 Telephone [facility] Orthopedics and Sports Medicine [address] [facility] [address] [place] [address] Iram Phan PA [address] [facility] [address] [place] [address] Social History Tobacco Use Types Packs/Day Years Used Date Smoking Tobacco: Former Cigarettes Smokeless Tobacco: Never AUDIT-C Answer Date Recorded [...] on file documented as of this encounter Miscellaneous Notes * Telephone Encounter - Gretchen Sarabia MA - 04/10/2024 3:30 PM CST Error GENCY MEDICINE SPECIALIST documented in this encounter Plan of Treatment Scheduled Referrals Name Type Priority Associated Diagnoses Orde r Schedule Ambulatory referral order to Physical Therapy - Outpatient Referral Routine History of arthroscopy of left shoulder Expected: 05/25/2023 (Approximate), Expires: 05/11/2024 documented as of this encounter Visit Diagnoses Diagnosis History of arthroscopy of left shoulder- Primary documented in this encounter Care Teams Windows Laptop Technician Relationship Specialty Start Date End Date Judith Walton NP [address] [place] [address] PCP - General 05/26/20 Iram Phan PA NPI: [id number] [place] [address] [address] [place] [address] Physician Electric Meter Repairer Orthopedic Surgery 03/27/23 documented as of this encounter
--- OUTSIDE RECORDS SUMMARY | 2024-04-12 13:18 | XMS_ITS | Encounter Summary ---
Author Organization [facility] Address [address] [place] [address] Care Team Providers Care Business Representative Name Role Phone Judith Walton NP Primary Care Provider [phone] Khushbu Phan Unavailable [phone] Reason for Visit * Reason Comments PT Treatment * Consultation (Routine) - Closed Specialty Diagnoses / Procedures Referred By Kody wall Referred To Contact Physical Therapy Diagnoses Traumatic incomplete tear of left rotator cuff, initial encounter Arthritis of left acromioclavicular joint Biceps tendinitis of left upper extremity Misbah Gann PA [address] [place] [address] [address] [place] [address] Phone: tel: fax: [address] [address] Referral ID Status Reason Start Date Expiration Date V isits Requested Visits Authorized [id number] Closed Evaluate and Treat 01/22/2023 01/22/2024 24 14 Encounter Details Date Type Department Care Team (Late st Contact Info) Description 05/09/2023 7:00 AM DIRECTOR SOCIAL SERVICE Therapy [facility] [place] [address] Shawna Yanes PTA S/P left rotator cuff repair (Primary Dx); S/P arthroscopy of left shoulder; Traumatic incomplete tear of left rotator cuff, initial encounter Social History Tobacco Use Types Packs/Day Years Used Date Smoking Tobacco: Former Cigarettes Smokeless Tobacco: Never AUDIT-C Answer Date Recorded Frequency of Alcohol Consumption Not on file 2023 Q2: How many drinks containi ng alcohol do you have on a typical day when you are drinking? Patient does not drink 3 Frequency of Binge Drinking Not on file 08/2022 Personal Safety Answer Date Recorded Getting School Help Needed Denies 03/26 Comments No Sex and Gender Information Value Date Recorded Sex Assigned at Not on file Legal Sex Female 11:20 PM CDT Gender Identity Not on file Sexual Orientation Not on file documented as of this encounter Progress Notes * Shawna Yanes, TANK TENDER - 05/09/2023 7:00 AM CST Physical Therapy Visit 05/09/2023 Ambar Nereyda Ruiz 1985 ICD-9-CM ICD-10-CM 1. S/P left rotator cuff repair V45.89 Z98.890 2. S/P arthroscopy of left shoulder V45.89 Z98.890 3. Traumatic incomplete tear of left rotator cuff, initial encounter 840.4 S46.012A Subjective: Pain: 07/24 left shoulder--mostly biceps Ambar reports she continues to have discomfort throughout her shoulder She states she is slowly weaning herself from the pillow in her sling Objective: Status post Left shoulder arthroscopy, distal claviculectomy, including distal articular surface, decompression of subacromial space with partial acromioplasty with coracoacromial release, rotator cuff repair, open tenodesis of long tendon of biceps 03/27/2023 Added supine wand and pulleys Shoulder PROM: Left Flexion 130 Abduction 100 External Rotation 30 Internal Rotation NT Strength not assessed secondary to protocol. Treatment Provided: Moist heat to left shoulder. Soft tissue mobilization to biceps, subscapularis, infraspinatus PROM to left shoulder Sidelying scapular mobilizations AROM to wrist and elbow extension (supine)* Supine flexion and chest press with wand Pulleys--flexion Ice to left shoulder Assessment: Ambar tolerated session fair Mild increase pain with the initiation of AAROM Plan: Continue with current plan of care progressing per her protocol Time in:0700 Time out:0745 PHASE I: (Weeks 0-1) GOALS: Protect rotator cuff repair Control pain and swelling SLING: Sling immobilization with abduction pillow at all times except for bathing and exercises WEIGHT BEARING: Non-weight bearing EXERCISES: Active range of motion elbow, wrist, and hand Dipper And Baker strengthening Shoulder pendulums PHASE II: (Weeks 1-6) GOALS: Early passive range of motion SLING: Discontinue abduction pillow at 5 weeks post-op Discontinue sling at 6 weeks post-op EXERCISES: Education on scapular position and posture PASSIVE range of motion shoulder ONLY, keep arm at or above midline Pendulums Supine elevation in the scapular plane = 140?? ER to tolerance with the arm at the side = 40?? ABD = max 60-80?? without rotation NO IR/behind the back Dipper And Baker strengthening NO JASS/Canes until week 6 No resisted motions of the shoulder until 8 weeks post-op Heat before PT and ice after PT PHASE III: (Weeks 6-12) GOALS: Progress to AROM Initiate strengthening EXERCISES: Initiate IR AAROM progressing to AROM as tolerated PROM lightly at end ranges Initiate scapular strengthening, PRE's for large muscle groups (pecs, lats), rhythmic stabilizations Begin strengthening/resisted motions at 8 weeks (Progress SLOWLY) Initiate rotator cuff isometrics submax with the arm at side at 8 weeks (progress to light resistance bands and light resisted movement) UBE Heat before PT and ice after PT PHASE IV: (Weeks 3- Month 12) GOALS: Progress strengthening Return to sport progression EXERCISES: Advance to full ROM as tolerated with passive stretching at end ranges Advance strengthening as tolerated: resistance bands - light weights (1-5 lbs.) 8-12 reps/2-3 sets for rotator cuff, deltoid, and scapular stabilizers Limit strengthening to 3x/week to avoid cuff tendinitis Begin eccentrically resisted motions, plyometrics (weighted ball toss), and proprioception (body blade) Begin sports related rehab at 4 1/2 months, including advanced conditioning Return to throwing at 6 months Collision sports at 9 months Maximal medical improvement is usually at 10 to 12 months Shawna Yanes PTA [employer] documented in this encounter Plan of Treatment Not on file documented as of this encounter Visit Diagnoses Diagnosis S/P left rotator cuff repair- Primary S/P arthroscopy of left shoulder Traumatic incomplete tear of left rotator cuff, initial encounter documented in this encounter Care Teams Business Representative Relationship Specialty Start Date End Date Judith Walton NP [address] [place] [address] PCP - General 05/26/20 Khushbu Phan PA [address] [facility] [address] [place] [address] Physician Clinical Program Coordinator Orthopedic Surgery 03/27/23 documented as of this encounter
--- OUTSIDE RECORDS SUMMARY | 2024-04-12 13:18 | XMS_ITS | Encounter Summary ---
Author Organization [facility] Address [address] [place] [address] Care Team Providers Care Project Management Instructor Name Role Phone Judith Walton NP Primary Care Provider [phone] Khushbu Phan Unavailable [phone] Reason for Visit * Reason Comments PT Treatment * Consultation (Routine) - Closed Specialty Diagnoses / Procedures Referred By Kody wall Referred To Contact Physical Therapy Diagnoses Traumatic incomplete tear of left rotator cuff, initial encounter Arthritis of left acromioclavicular joint Biceps tendinitis of left upper extremity Misbah Gann PA [address] [place] [address] [address] [place] [address] Phone: tel: fax: [address] [phone] Referral ID Status Reason Start Date Expiration Date V isits Requested Visits Authorized [id number] Closed Evaluate and Treat 01/22/2023 01/22/2024 24 14 Encounter Details Date Type Department Care Team (Late st Contact Info) Description 05/03/2023 7:00 AM BATTERY TESTER AND REPAIRER Therapy [facility] [place] [address] Richy Núñez, PT S/P left rotator cuff repair (Primary Dx); [...] as of this encounter Progress Notes * Richy Núñez, PT - 05/03/2023 7:00 AM CST Physical Therapy Visit 05/03/2023 Ambar Nereyda Ruiz 1985 ICD-9-CM ICD-10-CM 1. S/P left rotator cuff repair V45.89 Z98.890 2. S/P arthroscopy of left shoulder V45.89 Z98.890 3. Traumatic incomplete tear of left rotator cuff, initial encounter 840.4 S46.012A Subjective: Pain: 07/24 left shoulder--mostly biceps Ambar reports she continues to have discomfort throughout her shoulder Objective: Status post Left shoulder arthroscopy, distal claviculectomy, including distal articular surface, decompression of subacromial space with partial acromioplasty with coracoacromial release, rotator cuff repair, open tenodesis of long tendon of biceps 03/27/2023 Shoulder PROM: Left Flexion 130 Abduction 100 External Rotation 30 Internal Rotation NT Strength not assessed secondary to protocol. Treatment Provided: Moist heat to left shoulder. Soft tissue mobilization to biceps, subscapularis, infraspinatus PROM to left shoulder Sidelying scapular mobilizations AROM to wrist and elbow extension (supine) Ice to left shoulder Assessment: Ambar tolerated session fair Continues to have a lot of pain with PROM Plan: Continue with current plan of care progressing per her protocol Time in:0700 Time out:0740 PHASE I: (Weeks 0-1) GOALS: Protect rotator cuff repair Control pain and swelling SLING: Sling immobilization with abduction pillow at all times except for bathing and exercises WEIGHT BEARING: Non-weight bearing EXERCISES: Active range of motion elbow, wrist, and hand Lap Grinder strengthening Shoulder pendulums PHASE II: (Weeks 1-6) [...] 60-80?? without rotation NO IR/behind the back Lap Grinder strengthening NO JASS/Canes until week 6 No [...] is usually at 10 to 12 months Richy Núñez PT ERY TESTER AND REPAIRER documented in this encounter Plan of Treatment Not on file documented as of this encounter Visit Diagnoses Diagnosis S/P left rotator cuff repair- Primary S/P arthroscopy of left shoulder Traumatic incomplete tear of left rotator cuff, initial encounter documented in this encounter Care Teams Project Management Instructor Relationship Specialty Start Date End Date Judith Walton NP [address] [place] [address] PCP - General 05/26/20 Khushbu Phan PA [address] [facility] [address] [place] [address] Physician Country Singer Orthopedic Surgery 03/27/23 documented as of this encounter
--- OUTSIDE RECORDS SUMMARY | 2024-04-12 13:18 | XMS_ITS | Encounter Summary ---
Author Organization [facility] Address [address] [place] [address] Care Team Providers Care Intervention Specialist Name Role Phone Anton Judith Salgado NP Primary Care Provider [phone] Khushbu Phan Unavailable [phone] Reason for Referral * Physical Therapy (Routine) - Closed Specialty Diagnoses / Procedures Referred By Contadrian t Referred To Contact Physical Therapy Diagnoses S/P left rotator cuff repair Khushbu Phan PA [address] [place] [address] [address] [place] [address] Phone: tel: fax: [facility] [address] [place] [address] Phone: tel: fax: Referral ID Status Reason Start Date Expiration Date V isits Requested Visits Authorized [id number] Closed Specialty Services Required 05/14/2023 06/12/2024 24 24 Question Answer PTRFR PT Evaluate and Treat Therapy options discussed with patient? Yes Location provided for therapy services is: Patient requested/Patient preferred Please select the performing region: External Order [171] To loc/pos [facility] [[id number]] # of visits: 24 Comments ROTATOR CUFF REPAIR REHABILITATION PROTOCOL Procedure details: Surgery Date: 03/27/23 2-3 times per week for 6 weeks; Please call patient to schedule first post-op appointment for 5-7 days after surgery. Please evaluate and treat according to the following protocol: ADDITIONAL INSTRUCTIONS: s/p left shoulder arthroscopy with subacromial decompression, distal clavicle excision, full thickness rotator cuff repair and biceps tenodesis For all PT reports that require a signature-please fax to [phone] PHASE I: (Weeks 0-1) GOALS: Protect rotator cuff repair Control pain and swelling SLING: Sling immobilization with abduction pillow at all times except for bathing and exercises WEIGHT BEARING: Non-weight bearing EXERCISES: Active range of motion elbow, wrist, and hand Economic Development Director strengthening Shoulder pendulums PHASE II: (Weeks 1-6) GOALS: Early passive range of motion SLING: Discontinue abduction pillow at 5 weeks post-op Discontinue sling at 6 weeks post-op Delayed Protocol extend an additional 2 weeks EXERCISES: Education on scapular postion and posture PASSIVE range of motion shoulder ONLY, keep arm at or above midline Pendulums Supine elevation in the scapular plane = 140?? ER to tolerance with the arm at the side = 40?? ABD = max 60-80?? without rotation NO IR/behind the back Economic Development Director strengthening NO JASS/Canes until week 6 No resisted motions of the shoulder until 8 weeks post-op Heat before PT and ice after PT PHASE III: (Weeks 6-12) GOALS: Progress to AROM Initiate strengthening EXERCISES: Initiate IR AAROM progressing to AROM as tolerated PROM lightly at end ranges Initiate scapular strengthening, PRE's for large muscle groups (pecs, lats), rhythmic stabiliations Begin strengthening/resisted motions at 8 weeks (Progress SLOWLY) Initiate rotator cuff isometrics submax with the arm at side at 8 weeks (progress to light resistance bands and light resisted movement) UBE Heat before PT and ice after PT PHASE IV: (Mos 3- Month 12) GOALS: Progress strengthening Return to sport progression EXERCISES: Advance to full ROM as tolerated with passive stretching at end ranges Advance strengthening as tolerated Resistance bands - light weights (1-5 lbs.)8-12 reps/2-3 sets for rotator cuff, deltoid, and scapular stabilizers May advance scapular strength, biceps, triceps and initiate close chain activities Limit strengthening to 3x/week to avoid cuff tendinitis Begin eccentrically resisted motions, plyometrics (weighted ball toss), and proprioception (body blade) Begin sports related rehab at 4 1/2 months, including advanced conditioning Return to throwing at 6 months Collision sports at 9 months Maximal medical improvement is usually at 10 to 12 months ANTHONY Batres RUNNER Reason for Visit * Reason Comments Post-op Encounter Details Date Type Department Care Team (Late st Contact Info) Description 05/14/2023 8:00 AM BEER RUNNER Office Visit [facility] Orthopedics [facility] Sports Medicine [address] [facility] [address] [place] [id number] Khushbu Phan PA [address] [facility] [address] [place] [address] History of arthroscopy of left shoulder (Primary Dx); S/P left rotator cuff repair Social History Tobacco Use Types Packs/Day Years Used Date Smoking Tobacco: Former Cigarettes Smokeless Tobacco: Never AUDIT-C Answer Date Recorded Frequency of Alcohol Consumption Not on file 2023 Q2: How many drinks containi ng alcohol do you have on a typical day when you are drinking? Patient does not drink Frequency of Binge Drinking Not on file [...] Sign Reading Time Taken Comments Blood Pressure 106/70 05/14/2023 8:11 AM BEER RUNNER Pulse 75 05/14/2023 8:11 AM BEER RUNNER Temperature - - Respiratory Rate - - Oxygen Saturation - - Inhaled Oxygen Concentration - - Weight 94.3 kg (208 lb) 05/14/2023 8:11 AM BEER RUNNER Height 160 cm (5' 3 ) 05/14/2023 8:11 AM BEER RUNNER Body Mass Index 36.85 05/14/2023 8:11 AM BEER RUNNER documented in this encounter Ordered Prescriptions Prescription Sig Dispense Quantity Refills Last Filled Start Date End Date cyclobenzaprine (FLEXERIL) 5 mg tablet Take 1-2 tablets (5-10 mg total) by mouth 3 (three) times a day as needed for muscle spasms 40 tablet 1 05/14/2023 4 meloxicam (MOBIC) 15 mg tablet Take 1 tablet (15 mg total) by mouth daily 30 tablet 1 05/14/2023 4 documented in this encounter Progress Notes * Sylvester Loulou, ANTHONY - 05/14/2023 8:00 AM CST Images from the original note were not included. Post-Op Visit Note HPI: Patient is 7 weeks s/p left shoulder arthroscopy with subacromial decompression, distal clavicle excision, biceps tenodesis, full-thickness rotator cuff repair. Pain is well controlled. Patient is currently taking tylenol, ibuprofen and seldom tylenol prn for pain. They report compliance with slingand HEP/activity recommendations. She has started PT at [facility] and notes are reviewed; reports brandon have to switch her PT due to insurance. Her ROM is progerssing slowly; she reports being limited by pain today. Vital signs: height is 160 cm (5' 3 ) and weight is 94.3 kg (208 lb). Her blood pressure is 106/70 and her pulseis 75. Exam: Well approximated healing post operative portal holes. No erythema, draining, or signs of infection present. Neurovascular status is intact. Full AROM of elbow, wrist and hand. PROM: 130 flexion; 100 abduction; 30 ER; 40 IR ROM is felt to be limited by pain and inflammation/guarding. No solid endpoint is noted. Assessment: Diagnosis Plan 1. History of arthroscopy of left shoulder 2. S/P left rotator cuff repair Ambulatory referral order to Physical Therapy - New Medications Ordered This Visit meloxicam (MOBIC) 15 mg tablet Sig: Take 1 tablet (15 mg total) by mouth daily Dispense: 30 tablet Refill: 1 cyclobenzaprine (FLEXERIL) 5 mg tablet Sig: Take 1-2 tablets (5-10 mg total) by mouth 3 (three) times a day as needed for muscle spasms Dispense: 40 tablet Refill: 1 Plan: Procedure, medications and post operative expectations reviewed with patient discontinue sling Will continue outpatient PT at [facility] in [facility] reviewed as were activity restrictions/recommendations Follow up in 6 weeks time Continue tramadol prn Will add meloxicam; this was well tolerated prior to surgery. Patient was provided Rx for NSAID today. The patient was advised that NSAID-type medications have two very important potential side effects: gastrointestinal irritation including hemorrhage and renal injuries. She was asked to take the medication with food and to stop if she experiences any GI upset. Rx for cyclobenzaprine also provided; risks/benefits reviewed. Patient demonstrates atrophy and weakness of left shoulder and would benefit from home E stim device. Questions were answered. Patient expressed full understanding and agreement of plan. Khushbu Phan PA-C RUNNER documented in this encounter Plan of Treatment Scheduled Referrals Name Type Priority Associated Diagnoses Order Schedule Ambulatory referral order to Physical Therapy - Outpatient Referral Routine S/P left rotator cuff repair Expected: 05/28/2023 (Approximate), Expires: 05/14/2024 documented as of this encounter Visit Diagnoses Diagnosis History of arthroscopy of left shoulder- Primary S/P left rotator cuff repair documented in this encounter Care Teams Intervention Specialist Relationship Specialty Start Date End Date Judith Walton NP [address] [facility] [address] [place] [address] PCP - General 05/26/20 Khushbu Phan PA [address] [facility] [address], [place] [address] Physician Dobie Man Orthopedic Surgery 03/27/23 documented as of this encounter
--- OUTSIDE RECORDS SUMMARY | 2024-04-12 13:18 | XMS_ITS | Encounter Summary ---
Author Organization [facility] Address [address] [place] [address] Care Team Providers Care Loader Technician Name Role Phone Judith Walton NP Primary Care Provider [phone] Khushbu Phan Unavailable [phone] Reason for Visit * Reason Comments PT Treatment * Consultation (Routine) - Closed Specialty Diagnoses / Procedures Referred By Kody wall Referred To Contact Physical Therapy Diagnoses Traumatic incomplete tear of left rotator cuff, initial encounter Arthritis of left acromioclavicular joint Biceps tendinitis of left upper extremity Misbah Gann PA [address] [place] [address] [address] [place] [address] Phone: tel: fax: [address] [phone] Referral ID Status Reason Start Date Expiration Date V isits Requested Visits Authorized [id number] Closed Evaluate and Treat 01/22/2023 01/22/2024 24 14 Encounter Details Date Type Department Care Team (Late st Contact Info) Description 05/01/2023 7:00 AM GOVERNMENT GAUGER Therapy [facility] [place] [address] Shawna Yanes PTA S/P arthroscopy of left shoulder (Primary Dx); S/P [...] this encounter Progress Notes * Shawna Yanes, EVENT MARKETING MANAGER - 05/01/2023 7:00 AM CST Physical Therapy Visit 05/01/2023 Ambarlillie Ruiz 1985 ICD-9-CM ICD-10-CM 1. S/P arthroscopy of left shoulder V45.89 Z98.890 2. S/P left rotator cuff repair V45.89 Z98.890 Ambulatory referral order to Physical Therapy - Subjective: Pain: 07/24 left shoulder--mostly biceps Ambar reports she continues to have discomfort throughout her shoulder Objective: Status post Left shoulder arthroscopy, distal claviculectomy, including distal articular surface, decompression of subacromial space with partial acromioplasty with coracoacromial release, rotator cuff repair, open tenodesis of long tendon of biceps 03/27/2023 Shoulder PROM: Left Flexion 130 Abduction 100 External Rotation 30 Internal Rotation NT Treatment Provided: Moist heat to left shoulder. Soft tissue mobilization to biceps, subscapularis, infraspinatus PROM to left shoulder Sidelying scapular mobilizations AROM to wrist and elbow extension (supine) Ice to left shoulder Assessment: Ambar tolerated session fair Continues to have a lot of pain with PROM Plan: Continue with current plan of care progressing per her protocol Time in:657 Time out:741 PHASE I: (Weeks 0-1) GOALS: Protect rotator cuff repair Control pain and swelling SLING: Sling immobilization with abduction pillow at all times except for bathing and exercises WEIGHT BEARING: Non-weight bearing EXERCISES: Active range of motion elbow, wrist, and hand Thread Spooler strengthening Shoulder pendulums PHASE II: (Weeks 1-6) [...] 60-80?? without rotation NO IR/behind the back Thread Spooler strengthening NO JASS/Canes until week 6 No [...] 10 to 12 months Shawna Yanes PTA RNMENT GAUGER documented in this encounter Plan of Treatment Not on file documented as of this encounter Visit Diagnoses Diagnosis S/P arthroscopy of left shoulder- Primary S/P left rotator cuff repair documented in this encounter Orders Outpatient Referral Count Last Ordered Date Fir st Ordered Date AMB REFERRAL ORDER TO PHYSICAL THERAPY 1 documented in this encounter Care Teams Loader Technician Relationship Specialty Start Date End Date Judith Walton NP [address] [place] [address] PCP - General 05/26/20 Khushbu Phan PA [address] [facility] [address] [place] [address] Physician Customer Services Supervisor Orthopedic Surgery 03/27/23 documented as of this encounter
--- OUTSIDE RECORDS SUMMARY | 2024-04-12 13:18 | XMS_ITS | Encounter Summary ---
Author Organization [facility] Address [address] [place] [address] Care Team Providers Care Armature Winder Name Role Phone Anton Judith Salgado NP Primary Care Provider [phone] Khushbu Phan Unavailable [phone] Reason for Visit * Auth/Cert (Routine) Specialty Diagnoses / Procedures Referred By Contadrian t Referred To Contact Diagnoses Urinary retention Battery end of life of spinal cord stimulator Urinary retention [R33.9] Battery end of life of spinal cord stimulator [Z45.42] Procedures MT INS/RPLC PERPH SAC/GSTRC NPG/RCVR PCKT CRTJ&CONN MT ELEC MARY IMPLT NPGT SMPL SP/PN NPGT PRGRMG INSERTION/REMOVAL INTERSTIM DEVICE STAGE 2;Programming of InterStimNOTE:REMOVE EXISTINT GENERATOR AND LEAD COMBINED 1ST AND 2ND STAGE INTERSTIM PROCEDURE Referral ID Status Reason Start Date Expiration Date Visits Re quested Visits Authorized [id number] 1 1 Encounter Details Date Type Department Care Team (Late st Contact Info) Description 06/18/2023 7:30 AM CASING RUNNING MACHINE TENDER - 06/18/2023 9:40 AM CASING RUNNING MACHINE TENDER Surgery [facility] Operating Room [address] [place] [id number] Umesh Truong MD [address] [facility] [address] [place] [address] REMOVE EXISTING GENERATOR AND LEAD COMBINED 1ST AND 2ND STAGE INTERSTIM PROCEDURE; FLUROSCOPY AND INTRA OPERATIVE PROGRAMING OF DEVICE Surgery Details Date/Time Status Location OR Service Patient Class Case Cl ass Case Type Trauma Case? 06/18/2023 7:30 AM Posted [facility] OR POD 1 323 Urology Outpatient in Bed Elective Panel 1 Procedure LRB Anes Op Region Wound Class Comments REMOVE EXISTING GENERATOR AN D LEAD COMBINED 1ST AND 2ND STAGE INTERSTIM PROCEDURE; FLUROSCOPY AND INTRA OPERATIVE PROGRAMING OF DEVICE N/A General Class I - Clean Surgeon Surgeon Role Service Panel Umesh Truong MD Primary Urology 1 Rigoberto Viramontes MD Resident - Assisting Urol ogy 1 Special Needs Medtronic rep available for the case documented in this encounter Social History Tobacco Use Types Packs/Day Years Used Date Smoking Tobacco: Former Cigarettes 1 27 - 2021 Vaping Started: 2021 Passive Smoke [...] Sign Reading Time Taken Comments Blood Pressure 108/78 06/18/2023 7:20 AM CASING RUNNING MACHINE TENDER Pulse 76 06/18/2023 7:20 AM CASING RUNNING MACHINE TENDER Temperature 36.5 ??C (97.7 ??F) 06/18/2023 7:01 AM CS T Respiratory Rate 14 06/18/2023 7:20 AM CASING RUNNING MACHINE TENDER Oxygen Saturation 96% 06/18/2023 7:20 AM CASING RUNNING MACHINE TENDER Inhaled Oxygen Concentration - - Weight 94.8 kg (209 lb) 06/04/2023 11:44 AM CASING RUNNING MACHINE TENDER Height 160 cm (5' 3 ) 06/04/2023 11:44 AM CASING RUNNING MACHINE TENDER Body Mass Index 37.03 06/18/2023 11:31 AM CASING RUNNING MACHINE TENDER documented in this encounter Discharge Summaries * Avelino Hunt MD - 06/18/2023 3:50 PM CST Inpatient Discharge Summary BRIEF OVERVIEW Admitting Provider: Umesh Truong MD Discharge Provider: Umesh Truong MD Primary Care Physician at Discharge: Judith Walton NP [phone] Admission Date: 06/18/2023 Discharge Date: 06/19/2023 Admission Location: [facility] Problems/Diagnoses: Principal Problem: Urinary retention Active Problems: Battery end of life of spinal cord stimulator Resolved Problems: No resolved hospital problems. DETAILS OF HOSPITAL STAY Presenting Problem/History of Present Illness: Ambar Ruiz is a 38 y.o. female with InterStim [...] Truong MD at 06/28/2023 4:58 PM CDT NG RUNNING MACHINE TENDER documented in this encounter Discharge Instructions * Discharge Instructions* Avelino Hunt MD - 06/18/2023 7:12 AM CASING RUNNING MACHINE TENDER DISCHARGE INSTRUCTIONS: Surgery performed: 2nd stage Interstim [...] - Docusate/miralax as needed for constipation, available [id number]-[id number] - Bactrim, an antibiotic to help prevent [...] Sunday, 8 AM to 5:00 PM, call [phone] and ask for a member of your doctor's team. For urgent matters, after 5:00 PM during the week, on weekends and holidays, call [phone] and ask to have the Urology Automatic Furnace Operator Physician paged for you. Follow up: Follow up with your urologist as scheduled. To schedule this appointment, or if you have any questions or concerns, please call the urology office at . Call your surgeon???s office during regular business hours. If you need to speak to someone after hours or on weekends or holidays, call . Future Appointments Date Time Provider Department Center 06/22/2023 8:15 AM Khushbu Phan PA [facility] OS 130B Specialty 07/02/2023 8:40 AM Elle Bernstein Rai, NP U[facility] CAM 11C YBARRA NG RUNNING MACHINE TENDER NG RUNNING MACHINE TENDER NG RUNNING MACHINE TENDER NG RUNNING MACHINE TENDER documented in this encounter Medications at Time [...] discharge needs arise, please contact the covering manager case. NG RUNNING MACHINE TENDER * Avelino Hunt MD - 06/18/2023 2:46 [...] adult regular diet : void check ID: Angelitasyn, vanc x 1 day post-op Activity: OOB, Ambulate TID VTE prophylaxis: SCDs, SQ injections Avelino Hunt MD Urology PGY-0 NG RUNNING MACHINE TENDER NG RUNNING MACHINE TENDER documented in this encounter H&P Notes * [...] Normal affect and mood, oriented x 3. NG RUNNING MACHINE TENDER Source Note - Lupe Irvin NP - 06/12/2023 3:57 PM CASING RUNNING MACHINE TENDER Images from the original note were not included. Center for Preoperative Assessment and Planning Preoperative Evaluation Record Evaluation type/location: TPAP from [facility] Planned procedure site: [facility] PVT OR (Pod 1) Date: 06/12/23 NOTE: [...] Cardiovascular Pertinent negatives: hypertension ; CAD ; IA ; CABG ; valvular heart disease; atrial [...] provided by telephone and electronically sent via Platfora. Patient verbalized understanding of preoperative plan. Blood [...] mcg/actuation inhaler More than a month ---- Provider, MD Anderson ascorbic acid (vitamin C) 1,000 mg tablet 06/04/2023 -- -- ProviderAnderson MD atorvastatin (LIPITOR) 10 mg tablet 06/03/2023 12/31/22 -- ProviderAnderson MD BIOTIN ORAL 06/04/2023 -- -- Anderson Grewal MD buPROPion XL (WELLBUTRIN XL) 150 mg 24 hr tablet 06/04/2023 02/27/23 -- ProviderAnderson MD calcium carbonate (CALCIUM 500 ORAL) 06/04/2023 -- -- ProviderAnderson MD cetirizine (ZyrTEC) 10 mg tablet 06/03/2023 [...] 10 mg tablet Past Month 10/30/20 -- ProviderAnderson MD omeprazole (PriLOSEC) 10 mg capsule 06/03/2023 -- -- Anderson Grewal MD traZODone (DESYREL) 50 mg tablet 06/03/2023 07/18/22 -- Anderson Grewal MD vitamin B complex capsule 06/04/2023 -- -- Anderson Grewal MD vitamin K2 40 mcg tablet 06/04/2023 -- -- ProviderAnderson MD No current facility-administered medications for this [...] Rate: 106 bpm RR Interval: 562 msec MT Interval: 175 msec QRS Duration: 100 msec QT Interval: 321 msec QTC Interval: 383 msec P-R-T Supply: 26 - 17 - 10 degrees SINUS [...] last 30 days. Yi index score: 100 NG RUNNING MACHINE TENDER NG RUNNING MACHINE TENDER documented in this encounter Miscellaneous Notes * Plan of Care - Falguni Javier RN - 06/19/2023 10:41 AM CST Problem: Health Behavior: Goal: Understanding of discharge needs will improve 06/19/2023 1040 by Falguni Javier RN Outcome: Adequate for Discharge Problem: Lack of Knowledge Goal: Ability to develop a pain control plan will improve 06/19/2023 1040 by Falguni Javier [...] shift, awaiting mobile pharmacy to deliver meds. NG RUNNING MACHINE TENDER * Initial Assessments - Judith Camilo RN - 06/19/2023 10:26 AM CST CM Initial Assessment Interview Note Information Obtained From: Patient (at bedside) (06/19/23 1025) Admission Source: home Impression: 38 year old female admitted following interstim explant, reimplant including generator for battery. Plan Includes: Case management following for discharge planning and referrals as needed. Patient anticipates return to home when medically stable with support of spouse. Primary Source of Transportation: Does the patient need discharge transport arranged?: No (car with family) (06/19/23 1025) Health Insurance Coverage: [facility] Choice Plus Prescription Coverage: yes Pharmacy: [id number] [place] [place] - [facility] [address] [place] [address] [place] [address] [facility] [place], [place] - [address] [facility] [address] [facility] [address] [place] [address] Primary Care Provider: Judith Bennett NP Prior to Admission: Functional Status: Independent with ADLs Primary Caregiver: Self Support System: Spouse/Significant Other ( Adrian Ruiz [phone]) Home Care Services: No Outpatient Services: No Durable Medical Equipment: None Living Arrangements: Spouse/significant other, Children Type of Residence: Apartment Steps in home?: Yes, Outside of home Number of steps outside: 10 steps Medication management: Independent (06/18/23 1243) Potential discharge needs include: Home Health: None (06/19/23 1025) Dialysis: N/A Behavioral Health Services: Behavioral Health Services: No (06/19/23 1025) Patient expects to be Discharged to: Private residence, (06/19/23 1025) Additional Information: Patient lives with and son [...] Collaboration with patient, MD, direct care nurse, Church Organist, and other members of the health care team to assure needed interventions completed. 2. Return patient to optimal level of self-care post discharge. 3. Riding Coach will follow for Discharge Planning - interventions [...] with the aftercare plan. Judith Camilo RN NG RUNNING MACHINE TENDER * Plan of Care - Amy Lennon RN - 06/19/2023 4:05 AM CST Goals: Clinical Goals for the Shift: ambulate & pain control Summary: Problem: Medication Goal: Satisfaction with pain management medication regimen will improve Outcome: Progressing Problem: Sensory Goal: Ability to identify factors that increase pain levels will improve while working to decrease the patient's pain levels Outcome: Progressing NG RUNNING MACHINE TENDER * Plan of Care - Falguni Javier RN - 06/18/2023 12:52 [...] ambulating independently, no acute changes this shift. NG RUNNING MACHINE TENDER * Perioperative Nursing Note - Jarret Curtis RN - 06/18/2023 8:04 AM CST Stage 1 Neuro stimulator removed by Dr. Truong NG RUNNING MACHINE TENDER * Op Note - Umesh Truong MD [...] the non-rechargeable system Surgeon: Umesh Truong MD Park Manager: Tree De La Rosa MD Anesthesia: General [...] can be favored during future re-programming efforts. NG RUNNING MACHINE TENDER * Brief Op Note - Umesh Truong MD - 06/18/2023 7:58 AM CST Operative Progress Note Surgical Team: Surgeons and Role: * Umesh Truong MD - Primary * Rigoberto Viramontes MD - Resident - Assisting Anesthesiologist: Sima Quezada MD WASHER MACHINE: Sally Donnelly CRNA Marine Architect: Kayla Madsen RN; Jarret Curtis RN Scrub: [...] Implant Name Type Inv. Item Serial No. Pile Driving Technician Lot No. [id number]. Used Action [employer] Kit Lead Neurostimulator Percutaneous 4.32mm Spacing Interstim Surescan 28cm [id number] - [id number] Neurostimulator [employer] Kit Lead Neurostimulator Percutaneous 4.32mm Spacing Interstim Surescan 28cm [id number] Medtronic Inc [id number] N/A 1 Implanted [employer] Generator Neurostimulator Bowel Bladder [place] [id number] - [id number] [employer]ON[employer] Generator Neurostimulator Bowel Bladder [place] [id number] Medtronic Inc N/A 1 Implanted [employer] Envelope Absrb 2.7x2.5in Antibacterial Tyrx Medium Strl [id number] - [id number] Other - see comments [employer] Envelope Absrb 2.7x2.5in Antibacterial Tyrx Medium Strl [id number] Medtronic Inc N/A 1 Implanted Blood/Blood Products Transfused: 0 mls Complications: None Condition on Discharge from the operating room was stable Umesh Truong MD Date: 06/20/2023 Time: 3:48 PM TEACHING ATTESTATION : I was present and directly participated in the entire procedure (including opening and closing). NG RUNNING MACHINE TENDER * Pre-Procedure Instructions - Lupe Irvin ENAMEL CRACKER - 06/12/2023 3:53 PM CASING RUNNING MACHINE TENDER Center for Preoperative Assessment and Planning CPAP Clinic Location: [facility] The night before your surgery: * Do [...] of surgery. * If having surgery at [facility], you may want to bring a credit card if you want to use our Mobile Pharmacy for your discharge medications. Mobile pharmacy is not available at [facility], the Orthopedic Center, or the [place] for [facility]. If you are a smoker: * You should prepare for your surgery and recovery well ahead of time. Stop smoking at least 2 weeks before surgery to help prevent infection and help your body recover faster. Ask your surgeon for tools to help you quit or call 9-455-PYIPEHE ( ). Visit Smokefree.gov for more information. [...] with COVID-19. You test positive for COVID-19. NG RUNNING MACHINE TENDER * Perioperative Nursing Note - Annie Siddiqui RN - 06/04/2023 11:57 AM CST [place] for Preoperative Assessment and Planning Perioperative Nursing Note Telephone Preoperative Evaluation ([facility]) - TELEPHONE ONLY, NO PHYSICAL EXAM Date: [...] Type Not Specified [employer]rex [employer] System Biceps [place] Slotted Drill Guide 1.9mm Drill Fibertak Ar- 3670 - [id number] - Implanted (Left) Shoulder Inventory item: [employer] System Biceps [place] Slotted Drill Guide 1.9mm Drill Fibertak AR-3670 Model/Cat number: [id number] Pile Driving Technician: [employer] Lot number: [id number] Size: 1.9mm As of 03/27/2023 Status: Implanted Arthrex [employer] Arthrex Fibertak Tape 3 Load Rotator Cuff [place] Suture Sterile Latex Free Ar-3633 - [id number] - Implanted (Left) Shoulder Inventory item: [employer] Arthrex Fibertak Tape 3 Load Rotator Cuff [place] Suture Sterile Latex Free AR-3633 Model/Cat number: [id number] Pile Driving Technician: [employer] Lot number: [id number] Size: 2.6mm As of 03/27/2023 Status: Implanted [employer] Swivelock C 4.75mm 19.1mm Closed Eyelet Vent [place] Suture Ar- 2324bcc - [id number] - Implanted (Left) Shoulder Inventory item: [employer] Swivelock C 4.75mm 19.1mm Closed Eyelet Vent [place] Suture [id number] Model/Cat number: [id number] Pile Driving Technician: [employer] Lot number: [id number] Size: 4.75 x 19.1 mm As of [...] information Information Provided on Healthcare Directives: No Communication/Director Of Medical Education Needs Communication Barriers: Visual Communication Needs: Glasses Assistive Devices/DME: Eyeglasses Hearing - Right Ear: Functional Hearing - Left Ear: Functional Discharge Planning Type of Residence: Private residence Living Arrangements: Spouse/significant other Support Systems: Spouse/significant other Patient expects to be discharged to:: Private residence (, Adrian will be wrecker driver after surgery.) SUPERVISOR BEET END NO ADDITIONAL COMMENTS/ FOLLOW UP NG RUNNING MACHINE TENDER * Pre-Procedure Instructions - Annie Siddiqui RN [...] remove nail coverings, artificial nails and nail ivorian prior to the day of surgery. You should leave your valuables and any jewelry at home. No metal or piercings are allowed in the operating room. You should bring your insurance card, a photo ID (example: Tyre Finisher And Examiner's License) and a method of payment for [...] Chart. If you are having surgery at [facility], please arrive on the day of surgery [...] Pathway to Excellent Care by the followinglink: [email or web address] How To Prepare Your Skin For Surgery [...] Remove nail coverings, artificial nails and nail ivorian. Place clean linens on your bed the [...] questions, please call the CPAP Staff at [phone], Sunday-Sunday 8am-4:30pm. All patients should read the below section: COVID 19 Updates & Visitor Policy: Please access [email or web address] for the most updated information. Information on [facility] & the Orthopedic Center: Please view [email or web address] (Patient & Visitor Information) for additional details regarding Advanced Directive forms, AWARE, directions, parking information, lodging, Internet access, dining and more. Information on [facility] or [facility] [place] ([facility]): Please view [email or web address] (Patient and Visitor Information) for parking/directions and more. For MyChart information, to activate account or password recovery, please go to [email or web address] or call [phone] (toll-free: [phone]), Sun- Sunday 8am-5pm. Information for Suicide Prevention: National Suicide Prevention Lifeline (9-228- 170-TALK (1288)) or call or text 485. Chat resources: MSI.org. Surgery Times: For patients having surgery @ [facility] or [facility] ([facility]), if your surgeon's office has not notified you of your surgery time by NOON THE BUSINESS DAY BEFORE your surgery, please call [phone] and ask for your surgeon's office Dr. Truong. The Center for Preoperative Assessment & Planning (CPAP) does not provide arrival times for the day of surgery or provide the duration of surgery. This information is provided by your surgeon'soffice or by the center where you are having surgery. We appreciate your understanding. NG RUNNING MACHINE TENDER documented in this encounter Plan of Treatment Not on file documented as of this encounter Procedures Procedure Name Priority Date/Time Associated Diagnosis Comments FL FLUOROSCOPY < 1 HOUR IP Routine 06/18/2023 10:21 AM CASING RUNNING MACHINE TENDER INSERTION/REMOVAL INTERSTIM DEVICE STAGE 2 06/18/2023 7:30 AM CASING RUNNING MACHINE TENDER Urinary retention Battery end of life of spinal cord stimulator Special Needs Medtronic rep available for the case documented in this encounter Results * FL Fluoroscopy < 1 Hour (06/18/2023 10:21 AM CASING RUNNING MACHINE TENDER) Narrative [id number] - 06/18/2023 10:22 AM CASING RUNNING MACHINE TENDER The images from this study are not [...] life of spinal cord stimulator Urinary retention Unspecified retention of urine Battery [...] Pre-Emptive AnalgesiaIndications:Pre-Emptive Analgesia Given 06/18/2023 6:51 AM CASING RUNNING MACHINE TENDER 1,000 mg acetaminophen (TYLENOL) tablet 1,000 mg 1,000 mg, oral, Every 6 hours scheduled, First dose on Sun06/18/23 at 1300, Indications: PainIndications:Pain Given 06/19/2023 6:41 AM CASING RUNNING MACHINE TENDER 1,000 mg Given 06/18/2023 11:08 PM CASING RUNNING MACHINE TENDER 1,000 mg Given 06/18/2023 6:07 PM CASING RUNNING MACHINE TENDER 1,000 mg albuterol HFA (PROVENTIL HFA,VENTOLIN HFA,PROAIR HFA) 90 mcg/actuation inhaler 2 puff 2 puff, inhalation, Every 6 hours PRN (sexual assault response coordinator), wheezing, shortness of breath, Starting on Sun06/18/23 at 1227, Indications: Acute Asthma AttackIndications:Acute Asthma Attack ampicillin-sulbactam (UNASYN) 3 g/110 mL in sodium chloride 0.9% (premix) 3 g 3 g, intravenous, Administer over 30 Minutes, Every 6 hours scheduled, First dose on Sun06/18/23 at 1300, For 24 hours, Indications: Prophylaxis, SurgicalIndications:Prophylaxis, Surgical New Bag 06/19/2023 6:42 AM CASING RUNNING MACHINE TENDER 3 g New Bag 06/18/2023 11:59 PM CASING RUNNING MACHINE TENDER 3 g New Bag 06/18/2023 6:07 PM CASING RUNNING MACHINE TENDER 3 g atorvastatin (LIPITOR) tablet 10 mg 10 mg, oral, Nightly, First dose on Sun06/18/23 at 2100, Indications: hyperlipidemiaIndications:hyperli pidemia Given 06/18/2023 8:53 PM CASING RUNNING MACHINE TENDER 10 mg BUPivacaine (MARCAINE) 0.25 % (2.5 mg/mL) preservative free injection As needed, Starting on Sun06/18/23 at 0803, Intra-Op Given 06/18/2023 8:03 AM CASING RUNNING MACHINE TENDER 10 mL Surgical Site buPROPion XL (WELLBUTRIN XL) 24 hour tablet 150 mg 150 mg, oral, Every morning, First dose on Sun06/18/23 at 1300, Do not crush, chew, cut, dissolve, open or otherwise manipulate tablet/capsule., Indications: Anxiety with DepressionIndications:Anxiety with Depression Given 06/19/2023 7:33 AM CASING RUNNING MACHINE TENDER 150 mg Given 06/18/2023 2:46 PM CASING RUNNING MACHINE TENDER 150 mg ceFAZolin (ANCEF) injection Administer over 3 Minutes, As needed, Starting on Sun06/18/23 at 0802, Intra-Op Given 06/18/2023 8:02 AM CASING RUNNING MACHINE TENDER 1,000 mg Surgical Site dextrose 5% and Lactated Ringer's infusion 75 mL/hr, intravenous, Continuous, Starting on Sun06/18/23 at 1215, For 12 hours, Phase I & Post-op Floor New Bag 06/18/2023 1:01 PM CASING RUNNING MACHINE TENDER 75 mL/hr 75 mL/hr New Bag 06/18/2023 11:47 AM CASING RUNNING MACHINE TENDER 75 mL/hr 75 mL/hr enoxaparin (LOVENOX) syringe 40 mg 40 mg, subcutaneous, Daily (for enoxaparin), First dose on Sun06/18/23 at 2100, Indications: Deep Vein Thrombosis PreventionIndications:Deep Vein Thrombosis Prevention Given 06/18/2023 8:54 PM CASING RUNNING MACHINE TENDER 40 mg Left Lower Abdomen escitalopram (LEXAPRO) tablet 5 mg 5 mg, oral, Nightly, First dose on Sun06/18/23 at 2100, Indications: Anxiety with DepressionIndications:Anxiety with Depression Given 06/18/2023 8:53 PM CASING RUNNING MACHINE TENDER 5 mg HYDROmorphone (DILAUDID) injection 0.2 mg [...] more., Indications: PainIndications:Pain Given 06/18/2023 11:36 AM CASING RUNNING MACHINE TENDER 0.2 mg Given 06/18/2023 11:26 AM CASING RUNNING MACHINE TENDER 0.2 mg ketorolac (TORADOL) 15 mg/mL injection 15 mg 15 mg, intravenous, Every 6 hours scheduled, First dose on Sun06/18/23 at 1300, For 3 days, For Adult IV push, administer over 15 seconds, Indications: PainIndications:Pain Given 06/19/2023 6:42 AM CASING RUNNING MACHINE TENDER 15 mg Given 06/18/2023 11:08 PM CASING RUNNING MACHINE TENDER 15 mg Given 06/18/2023 6:07 PM CASING RUNNING MACHINE TENDER 15 mg Lactated Ringer's (LR) infusion 30 mL/hr, intravenous, Continuous, Starting on Sun06/18/23 at 0700, Pre-Op Rate/Dose Verify 06/18/2023 7:25 AM CASING RUNNING MACHINE TENDER 30 m L/hr New Bag 06/18/2023 6:36 AM CASING RUNNING MACHINE TENDER 30 mL/hr 30 mL/hr New Bag 06/18/2023 5:57 AM CASING RUNNING MACHINE TENDER 150 mL/hr lamoTRIgine (LaMICtal) tablet 50 mg 50 mg, oral, Nightly, First dose on Sun06/18/23 at 2100, Indications: MoodIndications:Mood Given 06/18/2023 8:53 PM CASING RUNNING MACHINE TENDER 50 mg montelukast (SINGULAIR) tablet 10 mg 10 mg, oral, Nightly, First dose on Sun06/18/23 at 2100, Indications: Seasonal Allergic RhinitisIndications:Seasonal Allergic Rhinitis Given 06/18/2023 8:53 PM CASING RUNNING MACHINE TENDER 10 mg ondansetron (ZOFRAN) injection 4 mg [...] dose., Indications: PainIndications:Pain Given 06/18/2023 11:27 AM CASING RUNNING MACHINE TENDER 5 mg oxyCODONE (ROXICODONE) tablet 5 mg 5 mg, oral, Every 4 hours PRN, 1st line for pain, Starting on Sun06/18/23 at 1221, May repeat in 1 hour if pain is uncontrolled or increasing. Max 2 doses within 1 dosing interval., Indications: PainIndications:Pain Given 06/18/2023 6:07 PM CASING RUNNING MACHINE TENDER 5 mg Given 06/18/2023 1:00 PM CASING RUNNING MACHINE TENDER [address] (PROTONIX) extended release tablet 40 mg 40 mg, oral, Daily, First dose on Sun06/18/23 at 1300, Do not crush, chew, cut, dissolve, open or otherwise manipulate tablet/capsule., Indications: Treatment of Non-Bleeding Gastric DisorderIndications:Treatment of Non-Bleeding Gastric Disorder Given 06/19/2023 7:34 AM CASING RUNNING MACHINE TENDER 40 mg Given 06/18/2023 1:01 PM CASING RUNNING MACHINE TENDER 40 mg polyethylene glycol (MIRALAX) packet 17 g 17 g, oral, Daily, First dose on Sun06/18/23 at 1300, Indications: constipationIndications:consti pation Given 06/19/2023 7:33 AM CASING RUNNING MACHINE TENDER 17 g sterile water irrigation As needed, Starting on Sun06/18/23 at 0804, Intra-Op Given 06/18/2023 8:04 AM CASING RUNNING MACHINE TENDER 500 mL Surgical Site traZODone (DESYREL) tablet 50 mg 50 mg, oral, Nightly PRN, sleep, depression, Starting on Sun06/18/23 at 1221, Indications: insomnia associated with depressionIndications:insomnia associated with depression Given 06/18/2023 9:55 PM CASING RUNNING MACHINE TENDER 50 mg vancomycin 1500 mg/515 mL in sodium chloride 0.9% (premix) 1,500 mg 1,500 mg, intravenous, Administer over 90 Minutes, Once, On Sun06/18/23 at 0700, For 1 dose, Pre-Op, Administer within 120 minutes of incision., Indications: Prophylaxis, SurgicalIndications:Prophylaxi s, Surgical New Bag 06/18/2023 6:48 AM CASING RUNNING MACHINE TENDER 1,500 mg vancomycin 1500 mg/515 mL in sodium chloride 0.9% (premix) 1,500 mg 1,500 mg (rounded from 1,422 mg = 15 mg/kg ? 94.8 kg), intravenous, Administer over 90 Minutes, Every 12 hours, First dose on Sun06/18/23 at 1900, For 24 hours, Indications: Prophylaxis, SurgicalIndications:Prophylaxi s, Surgical New Bag 06/19/2023 7:23 AM CASING RUNNING MACHINE TENDER 1,500 mg New Bag 06/18/2023 6:07 PM CASING RUNNING MACHINE TENDER 1,500 mg documented in this encounter Discontinued [...] Recently Administered Medications Times are shown in CASING RUNNING MACHINE TENDER. Scheduled Medication Order 06/17/2023 06/18/2023 06/19/2023 acetaminophen [...] RN)2308 (Given - Provider: Amy Lennon RN) 0641 (Given - Provider: Amy Lennon, [place]) ampicillin-sulbactam (UNASYN) 3 g/110 mL in sodium [...] Javier RN)2359 (New Bag - Provider: Amy Lennon RN) 0100 (Stopped - Provider: Amy Lennon, [place])0642 (New Bag - Provider: Amy Lennon, RN)0722 (Stopped - Provider: Amy Lennon, RN) atorvastatin (LIPITOR) tablet 10 mg 10 [...] (for enoxaparin), First dose on Sun06/18/23 at 2099, Indications: Deep Vein Thrombosis Prevention 2053 (Given - Provider: Ambar Hawkins RN) escitalopram (LEXAPRO) tablet 5 mg 5 mg, oral, Nightly, First dose on Sun06/18/23 at 2099, Indications: Anxiety with Depression 2052 (Given - Provider: Ambar Hawkins RN) ketorolac (TORADOL) 15 mg/mL injection 15 mg 15 mg, intravenous, Every 6 hours scheduled, First dose on Sun06/18/23 at 1300, For 3 days, For Adult IV push, administer over 15 seconds, Indications: Pain 1301 (Given - Provider: Falguni Javier RN)1807 (Given - Provider: Falguni Javier RN)2308 (Given - Provider: Amy Lennon RN) 0642 (Given - Provider: Amy Lennon, [place]) lamoTRIgine (LaMICtal) tablet 50 mg 50 mg, [...] Surgical 1807 (New Bag - Provider: Falguni Javier RN)1937 (Stopped - Provider: Ambar Hawkins, [place]) [...] Lugo)1301 (New Bag - Provider: Falguni Javier, RN)1457 (Stopped - Provider: Falguni Javier RN) Lactated [...] 2 puff, inhalation, Every 6 hours PRN (sexual assault response coordinator), wheezing, shortness of breath, Starting on Sun06/18/23 [...] Javier RN)1807 (Given - Provider: Falguni Javier RN) phenoL [...] needed, Starting on Sun06/18/23 at 0804, Intra-Op 08 (Given - Provider: Umesh Truong MD) traZODone [...] chloride 0.9% (premix) 3 g 1 06/18/2023 calcium carbonate (TUMS) juan wable tablet 1,000 mg 1 06/18/2023 Carrier Fluids for Secondary Infusion - 0.9% Sodium Chloride 1 06/18/2023 cyclobenzaprine (FLEXERIL) tablet 5 mg [...] naloxone (NARCAN) 0.4 mg/mL injection 0.04-0.4 mg 1 06/18/2023 ondansetron (ZOFRAN) injection 4 mg 2 [...] chloride 0.9% flush 0.5-20 mL 2 07/2023 sulfamethoxazole-trimethopri m (BACTRIM DS) 800-160 mg per [...] 06/18/2023 documented in this encounter Care Teams Armature Winder Relationship Specialty Start Date End Date Judith Walton NP [address] [place] [address] PCP - General 05/26/20 Khushbu Phan PA [address] [facility] [address], [place] [address] Physician Park Manager Orthopedic Surgery 03/27/23 documented as of this encounter
--- OUTSIDE RECORDS SUMMARY | 2024-04-12 13:18 | XMS_ITS | Encounter Summary ---
Author Organization [facility] Address [address] [place] [address] Phone Care Team Providers Care Padded Products Finisher Name Role Phone Judith Walton NP Primary Care Provider [phone] Khushbu Phan Unavailable [phone] Reason for Visit * Reason Comments Urinary Retention Encounter Details Date Type Department Care Team (Late st Contact Info) Description 05/03/2023 9:00 AM SHOW OPERATIONS SUPERVISOR Office Visit [facility] - [facility] Urology [address] [facility] 11th [place] [address] [place] [address] Umesh Truong MD [address] [facility] [address] [place] [address] History of urinary retention (Primary Dx) Social History Tobacco Use Types Packs/Day Years [...] as of this encounter Progress Notes * Umesh Truong MD - 05/03/2023 9:00 AM CST HPI: Ambar Ruiz is a 38 y.o. female with InterStim sacral neuromodulator in place, for management ofher nonobstructive urinary retention. The InterStim was implanted in 11/02/2017, she is now 5 and half years after her InterStim generator placement. Patient is here to check her InterStim battery. Patient got a notice from [employer] that her InterStim battery is likely going to be depleted soon dueto the generator placement surgery date. Patient also been noticing that the InterStim generator isstimulating we can weaker, despite her using the same program. She uses program at amplitude of 2.1 when I interrogate her device. In addition, the InterStim lead and generator she has in place is not MRI compatible. Patient needsto get an MRI of her knee. Patient would like to have the generator replaced because he is reachingthe end of battery life, is more than 5 and half years old, plus she would like to have the system we placed without MRI compatible system so she can not get an MRI scan. LURN SI-10 questionnaire revealed: 1 for urgency, 1 for urgency incontinence, 0 for stress incontinence with coughing/sneezing, 0 for stress incontinence with exercises/lifting, 0 for pain/discomfort with bladder filling, 1 for delay to start urine stream, 1 for slow or weak urine stream, 1 for dribble, Note: [4=every time, 3=most of the time, 2=about half of time, 1=a few times, 0=never] 4-7/day [score of 1] for frequency, 0/night [score of 0] for nocturia. The LUTS is somewhat bothered. The LURN-SI is scanned into medical record. ROS: Review Of Systems has been reviewed and can be found in the chart. The patient's past medical history, social history and family history are listed on their questionnaire, have been reviewed and can be found in the chart. UA: see chemical UA dipstick results from today. The chemical UA dip results was reviewed. Physical examination: GENERAL: Patient is healthy appearing, who is well developed, well nourished in no acute distress. Eyes: Pupils equal, round. Sclera anicteric. Chest: Lungs clear to auscultation bilaterally. Heart: Regular rate and rhythm. Abdomen: Soft and non-tender, no masses, no hernia. No CVA tenderness. Skin: No rashes or lesions. Musculoskeletal: Normal strength. No edema. Neurologic: Alert, nonfocal. Psychiatric: Normal affect and mood, oriented x 3. InterStim incision looks fine, it looks a little low on her buttock, but when asked patient's specific about it, she has not bothered by the way in his position low in her buttock. Patient's InterStim device was interrogated the device was turned on. She is using program with amplitude 2.1. When interrogated the device for battery life, it is showing low battery life for the generator. The InterStim is due for exchange of generator due to end of battery life approaching. Assessment and Plan: InterStim reaching the end of battery life Previous InterStim generator has been placed for 5 and half year InterStim performed for nonobstructive urinary retention Patient also need to get MRI scan of her knee She would like to have the InterStim device exchange out to MRI compatible lead and generator We discussed the pros and cons of different approaches, we decided to remove her InterStim lead andgenerator, because her existing device is not MRI compatible, patient needs to get an MRI, in addition her existing generator is reaching the end of batter life. We will do a combined 1st and 2nd stage procedure after the old device was removed under the same anesthesia. We discussed the risks thather existing lead may fracture on removal, this has happened before, she also known to have abnormal impedance 4 electrodes 3. On previous InterStim interrogation. If the lead fracture during removaldue to scarring, the 0 non MRI compatible lead may need to be left in the patient's, she is aware of this risk of lead fracture and lead retained. Also, we specifically discussed that we may have to put the electrode on the opposite side due to scarring, and she may not get the same response as sheused to get with her current device. She also understand that. InterStim bladder neuromdulation: Patient has decided to proceed with revision of InterStim generator and lead neuromdulation trial for treatment of retention. Discussed with patient in detail all risks, benefits and alternatives to the surgery. All questionswere answered. The patient wishes to proceed with the surgery as planned. Risks discussed and included, but were not limited to, wound/prosthesis infection, bleeding, failure of the generator or lead, lead migration, development of pain, loss of efficacy and relapse of urinary symptoms, the need for revision surgery in the future, etc. We also discussed the very low risk of spinal injury, fractured lead, retained lead (foreign body) in the spine. Patient is also aware that the InterStim may not completely make patient completely dry but may improve the incontinence. Time: My total encounter time on 05/03/2023 was 25 minutes which was spent in the activities documented inthe note. This includes time spent prior to the visit and after the visit in direct care of the patient. This time does not include time spent in any separately reportable services. I have spent the encounter time with the patient taking a history, doing a physical exam and treatment planning, greater than 50% of the visit was spent on counseling and coordinating care, and explaining the surgery, the pros and cons of surgery, the alternatives to and various options of surgery,benefits and potential complications of surgery, associated with the following diagnosis: the abovediagnosis, and the management of this condition. Patient was given the opportunities to ask questions regarding the surgery and consented to proceed with the following surgery: Intestim, and all indicated procedures. Audelia Truong MD hplc chemist (Urology) Division of Urologic Surgery [facility] Office [phone] 05/03/2023 9:38 AM Note: This note was generated by speech recognition software and may contain homophonic word substitutions or errors, please contact me for any questions. OPERATIONS SUPERVISOR documented in this encounter Plan of Treatment Not on file documented as of this encounter Procedures Procedure Name Priority Date/Time Associated Diagnosis Comments POCT URINALYSIS DIPSTICK Routine 05/03/2023 9:25 AM SHOW OPERATIONS SUPERVISOR History of urinary retention documented in this encounter Results * POCT urinalysis dipstick (05/03/2023 9:25 AM SHOW OPERATIONS SUPERVISOR) Glucose, ur, POC Negative Negative MG/DL Ketones, ur, POC Negative Negative Blood, ur, POC Negative Negative pH, ur, POC 5.0 5.0 - 8.0 Protein, ur, POC Negative Negative Nitrite, ur, POC Negative Negative Leukocytes, ur, POC Negative Negative Lot Number 0 Urine 05/03/2023 9:25 AM SHOW OPERATIONS SUPERVISOR Umesh Truong MD POINT OF CARE TEST ORDERABLES Final Result documented in this encounter Visit Diagnoses Diagnosis History of urinary retention- Primary documented in this encounter Care Teams Padded Products Finisher Relationship Specialty Start Date End Date Anton, Judith Salgado NP [address] [place], [place] [id number] PCP - General 05/26/20 Khushbu Phan PA [address] [facility] [address] Physician Pulmonary Care Nurse Orthopedic Surgery 03/27/23 documented as of this encounter
--- OUTSIDE RECORDS SUMMARY | 2024-04-12 13:18 | XMS_ITS | Encounter Summary ---
Author Organization [facility] Healthcare Address [address] [facility] [place] [address] Care Team Providers Care Generator Assembler Name Role Phone Judith Walton NP Primary Care Provider [phone] Khushbu Phan Unavailable [phone] Reason for Visit * Auth/Cert (Routine) Specialty Diagnoses / Procedures Referred By Contac t Referred To Contact Diagnoses Urinary retention Battery end of life of spinal cord stimulator Urinary retention [R33.9] Battery end of life of spinal cord stimulator [Z45.42] Procedures WY INS/RPLC PERPH SAC/GSTRC NPG/RCVR PCKT CRTJ&CONN WY ELEC MARY IMPLT NPGT SMPL SP/PN NPGT PRGRMG INSERTION/REMOVAL INTERSTIM DEVICE STAGE 2;Programming of InterStimNOTE:REMOVE EXISTINT GENERATOR AND LEAD COMBINED 1ST AND 2ND STAGE INTERSTIM PROCEDURE Referral ID Status Reason Start Date Expiration Date Visits Re quested Visits Authorized [id number] 1 1 Encounter Details Date Type Department Care Team (Late st Contact Info) Description 06/18/2023 7:25 AM EDUCATION INSTRUCTOR Anesthesia Event [facility] Operating Room 1 [place] [address] Sima Quezada MD [address] [id number] [place] [address] Raven Lobo NP [address] [facility] [address] [phone] [place], [place] [id number] Anesthesia Record Procedure Summary Procedure Name Responsible Anesthesiologist Anesthesia Start Time Anesthesia Stop Time REMOVE EXISTING GENERATOR AND LEAD COMBINED 1ST AND 2ND STAGE INTERSTIM PROCEDURE; FLUROSCOPY AND INTRA OPERATIVE PROGRAMING OF DEVICE Sima Quezada MD 06/18/23 0725 06/18/23 1113 Events Date Time Event Comment 06/18/2023 0557 In Preop 0720 0725 An Start 0730 In Room 0731 An Start Data 0734 An Induction The patient was reevaluated immediately before moderate or deep sedation use and before anesthesia induction. 0738 An Intubation 0749 Anesthesia Ready 0758 Proc Start 0758 Incision Start 1050 Proc Fin 1104 An Extubation 1104 an stop data 1106 Out of Room 1113 Handoff to RN I completed my handoff to the receiving nurse during which we: 1. Patient identified 2. Responsible provider identified 3. Pertinent medical history reviewed 4. Procedure type and surgical course discussed 5. Intraoperative anesthetic management and any significant issues discussed 6. Expectations and concerns for postop period discussed 7. Questions solicited from receiving nurse 8. Patient disposition at the time of handoff: No value filed. 1113 An Stop Meds Name Total midazolam PF 2 mg lidocaine (cardiac) syringe 2 % 100 mg propofol 150 mg fentaNYL 250 mcg rocuronium 60 mg ondansetron PF (ZOFRAN) 2 mg/mL injectio n 4 mg phenylephrine 1 mg/10 mL syringe (100 mc g/mL) 100 mcg ampicillin-sulbactam (UNASYN) 3 g/110 mL in sodium chloride 0.9% (premix) 3 g 6 g dexAMETHasone 4 mg/mL 4 mg sugammadex 200 mg Lactated Ringer's (LR) infusion 800 mL * Agents Name O2% N2O O2 N2O Air Sevoflurane Inspired Sevoflurane * Blood No blood administrations on file. Lines, Drains, and Airways Type Details Placement Removal Peripheral IV Catheter Size: 20 G; Orientation: Anterior, Distal, Right, Upper; Location: Arm 01/17/23 0200 by PNB catheter Placement Date: 03/27/23; Placement Time: 904 (created via procedure documentation); Inserted by: Epi Casas MD; Pt Tolerance: brachial plexus - interscalene; Removal Date: Injectable, Topical, None; Removal Time: Tolerated well 03/27/23904 by Epi Casas MD Peripheral IV Placement Date: 06/18/23; Placement Time: 0640; Catheter Size: 20 G; Orientation: Anterior, Left; Location: Forearm; Insertion Attempts: 2; Patient Tolerance: Tolerated well 06/18/23 0640 by Jg Cotter RN RETIRED Surgical Site 03/27/23; 1129; Le ft; Shoulder; 03/18/24 (Retired LDA, Removed/Completed by [facility] with LDA Utility); 1213 (Retired LDA, Removed/Completed by [facility] with LDA Utility) 03/27/23 1129 by Solange Brown RN 03/18/24 1213 by Discharge Provider, Automatic ETT Placement Date: 06/18/23; Placement Time: 0753 (created via procedure documentation); Mask Ventilation: 1; Technique: Video laryngoscopy; Type: ETT - single; Single Lumen Tube Size: 7 mm; Cuffed: Yes; Laryngoscope: Ivelisse; Blade Size: 3; Location: Oral; Grade View: Grade I; Insertion Attempts: 1; Placement Verification: Auscultation, Capnometry; Removal Date: 06/18/23; Removal Time: 1104 06/18/23 0753 by Sally Donnelly CRNA 06/18/23 1104 by Sally Donnelly, ÁNGEL RETIRED Surgical Site 06/18/23; 0802; Lower; Back; 03/18/24 (Retired LDA, Removed/Completed by [facility] with LDA Utility); 1213 (Retired LDA, Removed/Completed by [facility] with LDA Utility) 06/18/23 0802 by Jarret Curtis RN 03/18/24 1213 by Discharge Provider, Automatic documented in this encounter Social History Tobacco [...] on file documented as of this encounter OR Notes * Anesthesia Postprocedure Evaluation - Sima Quezada MD - 06/18/2023 11:46 AM CST Patient: Ambar Ruiz Procedure Summary Date: 06/18/23 Room / Location: [facility] OR POD 1 ROOM 323 / [facility] OR POD 1 Anesthesia Start: 0725 Anesthesia Stop: 111 Procedure: REMOVE EXISTING GENERATOR AND LEAD COMBINED 1ST AND 2ND STAGE INTERSTIM PROCEDURE; FLUROSCOPY AND INTRA OPERATIVE PROGRAMING OF DEVICE Diagnosis: Urinary retention Battery end of life of spinal cord stimulator (Urinary retention [R33.9]) (Battery end of life of spinal cord stimulator [Z45.42]) Surgeons: Umesh Truong MD Responsible Provider: Sima Quezada MD Anesthesia Type: general ASA Status: 2 Anesthesia Type: No value filed. Last vitals BP 115/73 Pulse 82 Temp (!) 35.7 ??C (96.3 ??F) (Temporal) Resp 14 SpO2 97% Anesthesia Post Evaluation Patient location during evaluation: PACU Patient participation: complete - patient participated Level of consciousness: fully awake Pain management: adequate Airway patency: adequate Evidence of recall: no Cardiovascular status: acceptable Respiratory status: acceptable Hydration status: acceptable Pt is: normothermic Nausea/Vomiting status: none Comments: Patient reports manageable pain. Denies N/V. Denies any recall. Patient stating she is ready for DC to floor. Denies any pain in left shoulder. No notable events documented. ATION INSTRUCTOR ATION INSTRUCTOR * Anesthesia Procedure Notes - Sally Donnelly CRNA - 06/18/2023 7:52 AM EDUCATION INSTRUCTOR Associated Order(s): Airway Airway Patient location: OR Urgency: elective Indications for airway management: anesthesia Difficult airway: no Emergent airway documentation: Risks and benefits discussed: yes Consent obtained: yes Consent given by: patient Airway prep: Preoxygenated: yes Patient position: sniffing MILS maintained throughout: yes Mask difficulty assessment: 1 - vent by mask Spontaneous ventilation during airway: absent Sedation level during airway: GA Final airway details: Final airway type: endotracheal airway Tube type: ETT ETT size: 7.0 mm Cuffed: yes Technique used for successful ETT placement: video laryngoscopy Insertion site: oral Blade type: Ivelisse Video blade type: Romo Blade size: 3 Cormack-Lehane (direct): grade I - full view of glottis Cormack-Lehane (video): grade I - full view of glottis Cuff volume: 5 mL Cuff inflated with: air ETT to teeth: 22 cm Placement verified by: auscultation and CO2 detection Airway secured with: silk tape Number of attempts: 1no ATION INSTRUCTOR * Anesthesia Preprocedure Evaluation - Sima Quezada MD - 06/12/2023 3:57 PM CST Images from the original note were not included. [facility] for Preoperative Assessment and Planning Preoperative Evaluation Record Evaluation type/location: TPAP from [facility] Planned procedure site: [facility] PVT OR (Pod 1) Date: 06/12/23 NOTE: [...] provided by telephone and electronically sent via [employer]. Patient verbalized understanding of preoperative plan. Blood bank needs for day of procedure: No type and screen needed Pending labs/tests include: None Reviewed unremarkable CMP and CBC 01/16/23 TPAP assessment complete Preoperative evaluation performed by Lupe Irvin NP on 06/12/23 at 4:00 PM . Patient Active Problem List Diagnosis Date Noted ??? Urinary retention 05/29/2023 ??? Battery end of life of spinal cord stimulator 05/29/2023 ??? Complete tear of left rotator cuff 03/27/2023 ??? Impingement syndrome of left shoulder 03/13/2023 ??? Arthritis of left acromioclavicular joint 03/13/2023 ??? Biceps tendinitis on left 03/13/2023 ??? Abnormal electrocardiogram (ECG) (EKG) 08/11/2022 ??? Chest pain 08/11/2022 ??? Tobacco use 08/11/2022 ??? Dysmenorrhea 04/02/2018 ??? Functional ovarian cysts 04/02/2018 ??? Menorrhagia with irregular cycle 03/07/2017 Past Medical History: Diagnosis Date ??? Anemia ??? Anxiety ??? Asthma ??? Depression ??? Gastric reflux ??? GERD (gastroesophageal reflux disease) ??? Hiatal hernia ??? Hypercholesteremia ??? Migraines ??? PONV (postoperative nausea and vomiting) Done well with scopolamine patch in the past Past Surgical History: Procedure Laterality Date ??? BLADDER SURGERY 10/2017 neurostimulator placement surgery ??? HYSTERECTOMY 03/2018 ??? OVARIAN CYST SURGERY 02/2016 ??? ROTATOR CUFF REPAIR Left 03/2023 ??? TUBAL LIGATION 02/2017 ??? WISDOM TOOTH EXTRACTION 01/2002 x4 OB History No obstetric history on file. Allergies Allergen Reactions ??? Latex Hives and Shortness of breath Med List Status: Nurse Complete Set By: Annie Siddiqui RN at 06/04/2023 11:55 AM Taking? Last Dose Start Date End Date Provider albuterol HFA (PROVENTIL HFA,VENTOLIN HFA,PROAIR HFA) 90 mcg/actuation inhaler More than a month ---- Anderson Grewal MD ascorbic acid (vitamin C) 1,000 mg [...] medications for this encounter. Current Outpatient Medications: ??? ascorbic acid (vitamin C) 1,000 mg tablet ??? atorvastatin (LIPITOR) 10 mg tablet ??? BIOTIN ORAL ??? buPROPion XL (WELLBUTRIN XL) 150 mg 24 hr tablet ??? calcium carbonate (CALCIUM 500 ORAL) ??? cetirizine (ZyrTEC) 10 mg tablet ??? cholecalciferol 25 mcg (1,000 unit) tablet ??? cyclobenzaprine (FLEXERIL) 5 mg tablet ??? escitalopram (LEXAPRO) 5 mg tablet ??? ferrous sulfate 325 mg (65 mg of elemental iron) tablet ??? lamoTRIgine (LaMICtal) 25 mg tablet ??? meloxicam (MOBIC) 15 mg tablet ??? montelukast (SINGULAIR) 10 mg tablet ??? omeprazole (PriLOSEC) 10 mg capsule ??? traZODone (DESYREL) 50 mg tablet ??? vitamin B complex capsule ??? vitamin K2 40 mcg tablet ??? albuterol HFA (PROVENTIL HFA,VENTOLIN HFA,PROAIR HFA) 90 mcg/actuation inhaler ??? fluticasone propionate (FLONASE) 50 mcg/actuation nasal spray ??? ibuprofen (ADVIL,MOTRIN) 800 mg tablet Social History Tobacco Use Smoking Status Former ??? Current packs/day: 0.00 ??? Average packs/day: 1 pack/day for 27.0 years (27.0 ttl pk-yrs) ??? Types: Cigarettes, Vaping ??? Start date: 1994 ??? Quit date: 2021 ??? Years since quittin.1 ??? Passive exposure: Never Smokeless Tobacco Never Alcohol Use: Not At Risk (06/04/2023) AUDIT-C ??? Frequency of Alcohol Consumption: Monthly or less ??? Average Number of Drinks: 1 or 2 ??? Frequency of Binge Drinking: Never Substance and Sexual Activity Drug Use Never Family History Problem Relation Age of Onset ??? Diverticulitis Mother ??? Hiatal hernia Mother ??? Stroke Father ??? Alzheimer's disease Father ??? Hypertension Father ??? Atrial fibrillation Father ??? Diabetes Maternal Grandmother ??? Atrial fibrillation Father's Brother ??? Alcohol abuse Other ??? Mental illness Other ??? Arthritis Other ??? Cancer Other ??? Lung disease Other ??? Anesthesia problems Neg Hx There were no vitals filed for this visit. Relevant diagnostics: ECG(s): 08/03/22 Vent Rate: 106 bpm RR Interval: 562 msec WY Interval: 175 msec QRS Duration: 100 msec QT Interval: 321 msec QTC Interval: 383 msec P-R-T [place]: 26 - 17 - 10 degrees SINUS [...] last 30 days. Yi index score: 100 DOS Physical Exam Medical history, medications, and allergies reviewed. Attestation: With today's edits, I endorse the findings of the anesthesia pre-evaluation assessment dated: 06/12/2023. Airway Exam: Mallampati: II Cervical ROM: FROM Cardiovascular Exam: Rate: regular Rhythm: regular EENT Exam: trachea midline Dental Exam: Appears intact Skin Exam: Skin is warm. Current state: Patient's current state is cooperative. Anesthesia Plan ASA 2 My patient is approved for the Anesthesia Controlled Medication protocol when under care of a SOLUTIONS SALES CONSULTANT Planned anesthesia: General Team communication plan: oral ET tube Induction: Induction: intravenous. Postoperative Plan: Patient's planned disposition post procedure is Floor. Informed Consent: Discussed plan with [employer] SAL[employer] CONSULTANT. Anesthesia plan and risks discussed with patient. Plan and Consent Comments: BP 108/78 Pulse 76 Temp 36.5 ??C (97.7 ??F) (Tympanic) Resp 14 Ht 160 cm (5' 3 ) Wt 94.8 kg (209 lb) SpO2 96% BMI 37.02 kg/m?? Ambar Ruiz has tolerated anesthesia well historically. Appropriately NPO and denies any recent changes in health. In agreement with plan for anesthesia today. We specifically discussed prone positioning and associated risks. Of note, patient had a left shoulder rotator cuff repair in March 2023. She reports no ROM limitations but of course asks that we be very careful. I discussed this with the surgical team as well who gave the patient an opportunity to reschedule if she was not able todemonstrate a full ROM given the need for prone positioning. We will plan to try and leave the leftarm at patient's side in order to minimize added strain/stretch, however may need to bring it overhead (superman position) if it does not sit well at side. Despite taking extra precautions and padding the shoulder, we discussed risk of injury with patient. She was in agreement to proceed. All questions were answered. Consent and Attending signature: I and/or my designee have discussed the anesthesia plan, benefits, possible alternatives, parental presence at time of induction (if indicated), and clinically relevant risks that may include dental injury, unintentional awareness, and/or other complications. The patient and/or parent/legal guardian understand, and agree to proceed. All questions answered. ATION INSTRUCTOR ATION INSTRUCTOR ATION INSTRUCTOR documented in this encounter Miscellaneous Notes * Addendum Note - Sally Donnelly CRNA - 06/19/2023 1:02 PM CST Addendum created 06/19/23 1302 by Sally Donnelly CRNA Intraprocedure Meds edited, Orders acknowledged in Narrator ATION INSTRUCTOR documented in this encounter Plan of Treatment Not on file documented as of this encounter Procedures Procedure Name Priority Date/Time Associated Diagnosis Comments WY AN PROCEDURE PLACEHOLDER Routine 06/18/2023 7:52 AM EDUCATION INSTRUCTOR WY AN ELECTIVE ENDOTRACHEAL AIRWAY Routine 06/18/2023 7:52 AM EDUCATION INSTRUCTOR documented in this encounter Results * WY AN ELECTIVE ENDOTRACHEAL AIRWAY, WY AN PROCEDURE PLACEHOLDER (06/18/2023 7:52 AM EDUCATION INSTRUCTOR) Narrative Sally Donnelly CRNA - 06/18/2023 7:52 AM EDUCATION INSTRUCTOR Sally Donnelly CRNA ? 06/18/2023 ??7:53 AM Airway Patient location: OR Urgency: elective Indications for airway management: anesthesia Difficult airway: no Emergent airway documentation: Risks and benefits discussed: yes Consent obtained: yes Consent given by: patient Airway prep: Preoxygenated: yes Patient position: sniffing MILS maintained throughout: yes Mask difficulty assessment: 1 - vent by mask Spontaneous ventilation during airway: absent Sedation level during airway: GA Final airway details: Final airway type: endotracheal airway Tube type: ETT ETT size: 7.0 mm Cuffed: yes Technique used for successful ETT placement: video laryngoscopy Insertion site: oral Blade type: Ivelisse Video blade type: Romo Blade size: 3 Cormack-Lehane (direct): grade I - full view of glottis Cormack-Lehane (video): grade I - full view of glottis Cuff volume: 5 mL Cuff inflated with: air ETT to teeth: 22 cm Placement verified by: auscultation and CO2 detection Airway secured with: silk tape Number of attempts: 1no us Sima Quezada MD ANESTHESIA ORDERABLES Final Re sult documented in this encounter Visit Diagnoses Not on filedocumented in this encounter Administered Medications Inactive Administered Medications - up to 3 most recent administrations Medication Order MAR Action Action Date Dose Rate Site ampicillin-sulbactam (UNASYN) 3 g/110 mL in sodium chloride 0.9% (premix) 3 g 3 g, intravenous, Administer over 30 Minutes, Once, On Sun06/18/23 at 0700, For 1 dose, Pre-Op, Administer within 60 minutes of incision., Indications: Prophylaxis, SurgicalIndications:Prophylaxis, Surgical Given 06/18/2023 9:36 AM EDUCATION INSTRUCTOR 3 g Given 06/18/2023 7:38 AM EDUCATION INSTRUCTOR 3 g dexAMETHasone (DECADRON) 4 mg/mL injection intravenous, Administer over 2 Minutes, As needed, Starting on Sun06/18/23 at 0815, Anesthesia Intra-op Given 06/18/2023 8:15 AM EDUCATION INSTRUCTOR 4 mg fentaNYL (SUBLIMAZE) preservative free injection intravenous, As needed, Starting on Sun06/18/23 at 0737, Anesthesia Intra-op Given 06/18/2023 7:37 AM EDUCATION INSTRUCTOR 250 mcg Lactated Ringer's (LR) infusion 30 mL/hr, intravenous, Continuous, Starting on Sun06/18/23 at 0700, Pre-Op Rate/Dose Verify 06/18/2023 7:25 AM EDUCATION INSTRUCTOR 30 mL/hr New Bag 06/18/2023 6:36 AM EDUCATION INSTRUCTOR 30 mL/hr 30 mL/hr New Bag 06/18/2023 5:57 AM EDUCATION INSTRUCTOR 150 mL/hr lidocaine (cardiac) (XYLOCAINE) preservative free injection intravenous, As needed, Starting on Sun06/18/23 at 0737, Anesthesia Intra-op, Indications: Ventricular ArrhythmiasIndications:Ventricular Arrhythmias Given 06/18/2023 7:37 AM EDUCATION INSTRUCTOR 100 mg midazolam (VERSED) 2 mg/2 mL preservative free injection intravenous, Administer over 2 Minutes, As needed, Starting on Sun06/18/23 at 0733, Anesthesia Intra-op Given 06/18/2023 7:33 AM EDUCATION INSTRUCTOR 2 mg ondansetron (ZOFRAN) injection intravenous, Administer over 2 Minutes, As needed, Starting on Sun06/18/23 at 1021, Anesthesia Intra-op Given 06/18/2023 10:21 AM EDUCATION INSTRUCTOR 4 mg phenylephrine (MANJEET-SYNEPHRINE) 1 mg/10 mL (100 mcg/mL) in sodium chloride 0.9% (premix) intravenous, As needed, Starting on Sun06/18/23 at 0747, Anesthesia Intra-op Given 06/18/2023 7:47 AM EDUCATION INSTRUCTOR 100 mcg propofoL (DIPRIVAN) 10 mg/mL IV intravenous, As needed, Starting on Sun06/18/23 at 0737, Anesthesia Intra-op New Bag 06/18/2023 7:37 AM EDUCATION INSTRUCTOR 150 mg rocuronium (ZEMURON) injection intravenous, As needed, Starting on Sun06/18/23 at 0737, Anesthesia Intra-op Given 06/18/2023 7:37 AM EDUCATION INSTRUCTOR 60 mg sugammadex (BRIDION) 100 mg/mL intravenous solution intravenous, As needed, Starting on Sun06/18/23 at 1021, Anesthesia Intra-op Given 06/18/2023 10:21 AM EDUCATION INSTRUCTOR 200 mg documented in this encounter Care Teams Generator Assembler Relationship Specialty Start Date End Date Judith Walton NP [address] [place] [address] PCP - General 05/26/20 Khushbu Phan PA [address] [address] Physician Physician General Internal Medicine Orthopedic Surgery 03/27/23 documented as of this encounter
--- OUTSIDE RECORDS SUMMARY | 2024-04-12 13:18 | XMS_ITS | Encounter Summary ---
Author Organization [facility] Address [address] [place] [address] Phone Care Team Providers Care Data Sme Name Role Phone Judith Walton NP Primary Care Provider [phone] Khushbu Phan Unavailable [phone] Encounter Details Date Type Department Care Team (Late st Contact Info) Description 05/29/2023 Telephone [facility] Urology [address] [facility] [address] [place] [address] Polina Valentino LPN Social History Tobacco Use Types Packs/Day Years [...] encounter Miscellaneous Notes * Telephone Encounter - Polina Valentino LPN - 05/29/2023 10:26 AM MACHINE LOAD CLERK Date: 05/29/2023 Reason for Call: Schedule surgery Patient Provider: Dr Stephany Truong Medical/Surgical Information: Outcome/Plan: Spoke to patient, scheduled surgery. Mailed paperwork. INE LOAD CLERK * Telephone Encounter - Polina Valentino LPN - 05/29/2023 10:26 AM MACHINE LOAD CLERK ----- Message from Umesh Truong MD sent at 05/03/2023 9:40 AM MACHINE LOAD CLERK ----- Surgery: Removal of existing InterStim generator and lead, combined 1st and 2nd stage InterStim procedure, with placement of permanent InterStim lead and generator, fluoroscopy Diagnosis: urinary retention, patient needs to get an MRI, need to switch over to MRI compatible InterStim system, plus her existing generator is reaching end of generator battery life CPAP: (Obtain urine culture if none is available recently). We plan to use the non-rechargeable Interstim system Follow up: see Elle in 2 weeks INE LOAD CLERK documented in this encounter Plan of Treatment Not on file documented as of this encounter Visit Diagnoses Not on filedocumented in this encounter Care Teams Data Sme Relationship Specialty Start Date End Date Judith Walton NP [address] [facility] [address] [place] [address] PCP - General 05/26/20 Khushbu Phan PA [address] [address] Physician Occ Med Physician Orthopedic Surgery 03/27/23 documented as of this encounter
--- OUTSIDE RECORDS SUMMARY | 2024-04-12 13:18 | XMS_ITS | Encounter Summary ---
Author Organization [facility] Address [address] [place] [address] Care Team Providers Care Electric Truck Crane Operator Name Role Phone Judith Walton NP Primary Care Provider [phone] Khushbu Phan Unavailable [phone] Reason for Visit * Reason Comments PT Treatment * Consultation (Routine) - Closed Specialty Diagnoses / Procedures Referred By Kody wall Referred To Contact Physical Therapy Diagnoses Traumatic incomplete tear of left rotator cuff, initial encounter Arthritis of left acromioclavicular joint Biceps tendinitis of left upper extremity Misbah Gann PA [address] [place] [address] [address] [place] [address] Phone: tel: fax: [address] [address] Referral ID Status Reason Start Date Expiration Date V isits Requested Visits Authorized [id number] Closed Evaluate and Treat 01/22/2023 01/22/2024 24 14 Encounter Details Date Type Department Care Team (Late st Contact Info) Description 05/11/2023 7:00 AM HEAD OF MARKETING ADOMETRY Therapy [facility] [place] [address] Shawna Yanes PTA S/P left rotator cuff repair (Primary Dx) Social History Tobacco Use Types [...] this encounter Progress Notes * Shawna Yanes, REGISTRY RN - 05/11/2023 7:00 AM CST Physical Therapy Visit 05/11/2023 Ambar Dawn Joseph 1985 ICD-9-CM ICD-10-CM 1. S/P left rotator cuff repair V45.89 Z98.890 Subjective: Pain: 07/24 left shoulder Ambar reports she continues to have discomfort [...] Abduction 100 External Rotation 30 Internal Rotation 40 Strength not assessed secondary to protocol. Treatment Provided: Moist heat to left shoulder. Soft tissue mobilization to biceps, subscapularis, infraspinatus PROM to left shoulder Sidelying scapular mobilizations AROM to wrist and elbow extension (supine)* Supine flexion and chest press with wand Pulleys--flexion Ice to left shoulder Assessment: Ambar tolerated session fair She continues to have discomfort with all activity Plan: Continue with current plan of care progressing per her protocol Time in:0700 Time out:07 PHASE I: (Weeks 0-1) GOALS: Protect rotator cuff repair Control pain and swelling SLING: Sling immobilization with abduction pillow at all times except for bathing and exercises WEIGHT BEARING: Non-weight bearing EXERCISES: Active range of motion elbow, wrist, and hand Strategic Business Development strengthening Shoulder pendulums PHASE II: (Weeks 1-6) [...] 60-80?? without rotation NO IR/behind the back Strategic Business Development strengthening NO JASS/Canes until week 6 No [...] 10 to 12 months Shawna Yanes PTA OF MARKETING ADOMETRY documented in this encounter Plan of Treatment Not on file documented as of this encounter Visit Diagnoses Diagnosis S/P left rotator cuff repair- Primary documented in this encounter Care Teams Electric Truck Crane Operator Relationship Specialty Start Date End Date Judith Walton NP [address] [place] [address] PCP - General 05/26/20 Khushbu Phan PA [address] [facility] [address], [place] [address] Physician Conveyor Maintenance Mechanic Orthopedic Surgery 03/27/23 documented as of this encounter
--- OUTSIDE RECORDS SUMMARY | 2024-04-12 13:18 | XMS_ITS | Encounter Summary ---
Author Organization [facility] Address [address] [place] [address] Care Team Providers Care Baking Assistant Name Role Phone AntonPareshJudithyifan Salgado NP Primary Care Provider + [phone] Khushbu Phan Unavailable [phone] Reason for Referral * Consultation (Routine) - Closed Specialty Diagnoses / Procedures Referred By Contadrian t Referred To Contact Physical Therapy Diagnoses Personal history of surgery to heart and great vessels, presenting hazards to [facility] Khushbu Phan PA [address] [place] [address] Phone: tel: fax: [facility] Physical Therapy [address] [place] [address] Phone: tel: fax: Referral ID Status Reason Start Date Expiration Date V isits Requested Visits Authorized [id number] Closed Evaluate and Treat 05/09/2023 06/07/2024 12 12 Question Answer PTRFR PT Evaluate and Treat Therapy options discussed with patient? Yes Location provided for therapy services is: Patient requested/Patient preferred Please select the performing region: External Order [171] To loc/pos [facility] Physical Therapy Kim [[id number]] # of visits: 12 Comments 2x6 weeks PACKER Encounter Details Date Type Department Care Team (Late st Contact Info) Description 05/09/2023 Orders Only [facility] Group Orthopedics and Sports Medicine [address] [place], [place] [address], [place] [address] Khushbu Phan PA [address] [facility] [address] [place] [address] Personal history of surgery to heart and great vessels, presenting hazards to health (Primary Dx) Social History Tobacco Use Types [...] on file documented as of this encounter Plan of Treatment Scheduled Referrals Name Type Priority Associated Diagnoses Order Schedule Ambulatory referral order to Physical Therapy - Outpatient Referral Routine Personal history of surgery to heart and great vessels, presenting hazards to health Expected: 05/23/2023 (Approximate), Expires: 05/09/2024 documented as of this encounter Visit Diagnoses Diagnosis Personal history of surgery to heart and great vessels, presenting hazards to health- Primary documented in this encounter Care Teams Baking Assistant Relationship Specialty Start Date End Date Judith Walton NP [address] [place] [address] PCP - General 05/26/20 Khushbu Phan PA [address] [facility] [address] [place] [address] Physician Distribution Center Manager Orthopedic Surgery 03/27/23 documented as of this encounter
--- OUTSIDE RECORDS SUMMARY | 2024-04-12 13:18 | XMS_ITS | Encounter Summary ---
Author Organization [facility] Address [address] [place] [address] Care Team Providers Care Battery Assembler Dry Cell Name Role Phone Judith Walton NP Primary Care Provider [phone] Khushbu Phan Unavailable [phone] Reason for Visit * Reason Comments PT Treatment * Consultation (Routine) - Closed Specialty Diagnoses / Procedures Referred By Kody wall Referred To Contact Physical Therapy Diagnoses Traumatic incomplete tear of left rotator cuff, initial encounter Arthritis of left acromioclavicular joint Biceps tendinitis of left upper extremity Misbah Gann PA [address] [place] [address] [address] [place] [address] Phone: tel: fax: [address] [phone] Referral ID Status Reason Start Date Expiration Date V isits Requested Visits Authorized [id number] Closed Evaluate and Treat 01/22/2023 01/22/2024 24 14 Encounter Details Date Type Department Care Team (Late st Contact Info) Description 05/16/2023 7:45 AM PSYCHIATRIC LPN Therapy [facility] [place] [address] Richy Núñez, PT S/P left rotator cuff repair (Primary Dx); S/P arthroscopy of left shoulder Social History Tobacco Use Types Packs/Day Years [...] Progress Notes * Richy Núñez, PT - 05/16/2023 7:45 AM CST Physical Therapy Visit 05/16/2023 Ambar Dawn Joseph 1985 ICD-9-CM ICD-10-CM 1. S/P left rotator cuff repair V45.89 Z98.890 2. S/P arthroscopy of left shoulder V45.89 Z98.890 Subjective: Pain: 07/24 left shoulder [...] flexion and chest press with wand Pulleys--flexion UBE Ice to left shoulder Assessment: Ambar tolerated session fair She continues to have discomfort with all activity Plan: Continue with current plan of care progressing per her protocol Time in:744 Time out:824 PHASE II: (Weeks 1-6) GOALS: Early passive [...] 60-80?? without rotation NO IR/behind the back Staff Development Educator strengthening NO JASS/Canes until week 6 No [...] 10 to 12 months Richy Núñez PT HIATRIC LPN documented in this encounter Plan of Treatment Not on file documented as of this encounter Visit Diagnoses Diagnosis S/P left rotator cuff repair- Primary S/P arthroscopy of left shoulder documented in this encounter Care Teams Battery Assembler Dry Cell Relationship Specialty Start Date End Date Judith Walton NP [address] [place] [address] PCP - General 05/26/20 Khushbu Phan PA [address] [facility] [address], [place] [address] Physician Shaper Hand Orthopedic Surgery 03/27/23 documented as of this encounter
--- OUTSIDE RECORDS SUMMARY | 2024-04-12 13:18 | XMS_ITS | Encounter Summary ---
Author Organization [facility] Address [address] [place] [address] Phone Care Team Providers Care Occupational Hygienist Name Role Phone Judith Walton NP Primary Care Provider + [phone] Khushbu Phan Unavailable [phone] Encounter Details Date Type Department Care Team (Late st Contact Info) Description 05/29/2023 Orders Only [facility] [address] [facility] [address] [place] [address] Umesh Truong MD [address] [facility] [address] [place] [address] History of urinary retention (Primary Dx); Neuromuscular dysfunction of bladder, unspecified Social History [...] as of this encounter Plan of Treatment Not on file documented as of this encounter Procedures Procedure Name Priority Date/Time Associated Diagnosis Comments URINE CULTURE Routine 06/13/2023 12:35 PM KITCHEN CHEF History of urinary retention Neuromuscular dysfunction of bladder, unspecified documented in this encounter Results * Urine culture Urine, clean voided (06/13/2023 12:35 PM KITCHEN CHEF) Urine culture Final report [facility] - 01 Result 1 No growth [facility] - 01 Urine, clean voided 06/13/2023 12:35 PM KITCHEN CHEF 06/13/2023 Comment:UR Narrative [facility] - 06/15/2023 5:08 AM KITCHEN CHEF Performed at: ??01 - [facility] [address] ??[id number] Shoe Dresser: Harry Tejeda PhD, Phone: ??[phone] us Umesh Truong MD LAB MICROBIOLOGY - GENERAL ORD ERABLES Final Result [facility] - 01 documented in this encounter Visit Diagnoses Diagnosis History of urinary retention- Primary Neuromuscular dysfunction of bladder, unspecified documented in this encounter Care Teams Occupational Hygienist Relationship Specialty Start Date End Date Judith Walton NP [address] [place] [address] PCP - General 05/26/20 Khushbu Phan PA [address] [facility] [address] [address] Physician Imposer Orthopedic Surgery 03/27/23 documented as of this encounter
--- OUTSIDE RECORDS SUMMARY | 2024-04-12 13:19 | XMS_ITS | Encounter Summary ---
Author Organization [facility] Address [address] [place] [address] Care Team Providers Care Billing Representative Name Role Phone AntonPareshJudithyifan Salgado NP Primary Care Provider + [phone] Khushbu hPan Unavailable [phone] Reason for Visit * Reason Comments PT Treatment * Consultation (Routine) - Closed Specialty Diagnoses / Procedures Referred By Contadrian t Referred To Contact Physical Therapy Diagnoses S/P arthroscopy of left shoulder Jayson Grijalva MD [address] [place] [address] [address] [facility] [address] [place] [address] Phone: tel: fax: [address] [address] Referral ID Status Reason Start Date Expiration Date V isits Requested Visits Authorized [id number] Closed Evaluate and Treat 02/16/2023 04/15/2023 18 13 Encounter Details Date Type Department Care Team (Late st Contact Info) Description 04/11/2023 7:00 AM EXAMINER RATING CLERK Therapy [facility] Physical [place] [address] Shawna Yanes PTA S/P arthroscopy of left shoulder (Primary Dx) Social History Tobacco Use Types [...] this encounter Progress Notes * Shawna Yanes, CREDIT UNION TELLER - 04/11/2023 7:00 AM CST Physical Therapy Visit 04/11/2023 Ambar Alatorre 1985 ICD-9-CM ICD-10-CM 1. S/P arthroscopy of left shoulder V45.89 Z98.890 Subjective: Pain: 10/23 left shoulder Ambar reports she followed up with the surgeon' office and they gave her tramadol for pain Objective: Status post Left shoulder arthroscopy, distal claviculectomy, including distal articular surface, decompression of subacromial space with partial acromioplasty with coracoacromial release, rotator cuff repair, open tenodesis of long tendon of biceps 03/27/2023 Treatment Provided: Moist heat to left shoulder. PROM to left shoulder AROM to wrist and elbow extension Ice to left shoulder Assessment: Ambar is receptive to the current treatment program She tolerates her treatment fairly well Plan: Continue with current plan of care progressing per her protocol Time in:0710 Time out:0750 PHASE I: (Weeks 0-1) GOALS: Protect rotator cuff repair Control pain and swelling SLING: Sling immobilization with abduction pillow at all times except for bathing and exercises WEIGHT BEARING: Non-weight bearing EXERCISES: Active range of motion elbow, wrist, and hand Leach Tank Tender strengthening Shoulder pendulums PHASE II: (Weeks 1-6) [...] 60-80?? without rotation NO IR/behind the back Leach Tank Tender strengthening NO JASS/Canes until week 6 No [...] 10 to 12 months Shawna Yanes PTA INER RATING CLERK documented in this encounter Plan of Treatment Not on file documented as of this encounter Visit Diagnoses Diagnosis S/P arthroscopy of left shoulder- Primary documented in this encounter Care Teams Billing Representative Relationship Specialty Start Date End Date Judith Walton NP [address] [place] [address] PCP - General 05/26/20 Khushbu Phan PA [address] [facility] [address], [place] [address] Physician Rn Team Leader Orthopedic Surgery 03/27/23 documented as of this encounter
--- OUTSIDE RECORDS SUMMARY | 2024-04-12 13:19 | XMS_ITS | Encounter Summary ---
Author Organization [facility] Address [address] [place] [address] Care Team Providers Care Creative Recruiter Name Role Phone WaltonPareshJudithyifan Salgado NP Primary Care Provider [phone] Khushbu Phan Unavailable [phone] Reason for Referral * Physical Therapy (Routine) - Pending Review Specialty Diagnoses / Procedures Referred By Kody t Referred To Contact Physical Therapy Diagnoses S/P left rotator cuff repair Khushbu Phan PA [address] [place] [address] [address], [place] [address] Phone: tel: fax: [address] [address] Referral ID Status Reason Start Date Expiration Date Visits Requested Visits Authorized [id number] Pending Review Specialty Services Required 04/27/2023 05/26/2024 12 12 Question Answer PTRFR PT Evaluate and Treat Therapy options discussed with patient? Yes Location provided for therapy services is: Patient requested/Patient preferred Please select the performing region: [facility] [144] # of visits: 12 Comments [id number] HIATRIC NURSE PRACTITIONER Reason for Visit * Reason Onset Date Comments Request For Order(s) 04/25/2023 Encounter Details Date Type Department Care Team (Late st Contact Info) Description 04/25/2023 Telephone [facility] Medical Group Orthopedics and Sports Medicine [address] [facility] [address], [place] [address] Khushbu Phan PA [address] [place] [address] [address] [place] [address], [place] [address] Request For Order(s) Social History Tobacco Use Types Packs/Day Years [...] encounter Miscellaneous Notes * Telephone Encounter - Allison Earl MA - 05/09/2023 11:35 AM PSYCHIATRIC NURSE PRACTITIONER Patient needs new PT order now sent to [facility] in [place] due to insurance change. HIATRIC NURSE PRACTITIONER * Addendum Note - Elif El MA - 04/27/2023 7:32 AM CSTAddended by: ELIF EL on: 04/27/2023 07:32 AM Modules accepted: Orders HIATRIC NURSE PRACTITIONER * Telephone Encounter - Elif El MA - 04/27/2023 7:31 AM CST Will send order to [facility]. HIATRIC NURSE PRACTITIONER * Telephone Encounter - Trina Irvin - 04/25/2023 3:23 PM CST Patient called and need a new PT order sent over to [facility] and then a different order sent after the May to [facility] in [place]. Please advise HIATRIC NURSE PRACTITIONER documented in this encounter Plan of Treatment Scheduled Referrals Name Type Priority Associated Diagnoses Order Schedule Ambulatory referral order to Physical Therapy - Outpatient Referral Routine S/P left rotator cuff repair Expected: 05/11/2023 (Approximate), Expires: 04/27/2024 documented as of this encounter Visit Diagnoses Diagnosis S/P left rotator cuff repair- Primary documented in this encounter Care Teams Creative Recruiter Relationship Specialty Start Date End Date Judith Walton NP [address] [place] [address] PCP - General 05/26/20 Khushbu Phan PA [address] [facility] [address], [place] [address] Physician Personal Care Home Administrator Orthopedic Surgery 03/27/23 documented as of this encounter
--- OUTSIDE RECORDS SUMMARY | 2024-04-12 13:19 | XMS_ITS | Encounter Summary ---
Author Organization [facility] Address [address] [place] [address] Care Team Providers Care Etiquette Teacher Name Role Phone Judith Walton NP Primary Care Provider [phone] Khushbu Phan Unavailable [phone] Reason for Visit * Reason Comments PT Progress Note * Consultation (Routine) - Closed Specialty Diagnoses / Procedures Referred By Contadiran t Referred To Contact Physical Therapy Diagnoses Traumatic incomplete tear of left rotator cuff, initial encounter Arthritis of left acromioclavicular joint Biceps tendinitis of left upper extremity Misbah Gann PA [address] [place] [address] [address], [place] [address] Phone: tel: fax: [address] [address] Referral ID Status Reason Start Date Expiration Date V isits Requested Visits Authorized [id number] Closed Evaluate and Treat 01/22/2023 01/22/2024 24 14 Encounter Details Date Type Department Care Team (Late st Contact Info) Description 04/20/2023 7:00 AM CLINIC MD ASSOCIATE Therapy [facility] [place] [address] Param Weaver, PT S/P arthroscopy of left shoulder (Primary Dx); Traumatic incomplete tear of left rotator cuff, initial encounter; Arthritis of left acromioclavicular joint; Biceps tendinitis of left upper extremity Social History Tobacco Use Types Packs/Day Years [...] as of this encounter Progress Notes * Param Weaver, PT - 04/20/2023 7:00 AM CST Physical Therapy Visit 04/20/2023 Ambar Dawn Joseph 1985 ICD-9-CM ICD-10-CM 1. S/P arthroscopy of left shoulder V45.89 Z98.890 2. Traumatic incomplete tear of left rotator cuff, initial encounter 840.4 S46.012A 3. Arthritis of left acromioclavicular joint 716.91 M19.012 4. Biceps tendinitis of left upper extremity 726.12 M75.22 Subjective: Pain: 07/24 left shoulder Ambar reports she is now able to sleep in bed but it is difficult to sleep on her back because her lower back is sore and she cannot sleep on her side. Objective: Status post Left shoulder arthroscopy, distal [...] to left shoulder Assessment: Ambar tolerated session well today. ROM improved after soft tissue mobilization. Plan: Continue with current plan of care progressing per her protocol Time in:0702 Time out:0750 PHASE I: (Weeks 0-1) GOALS: Protect rotator cuff repair Control pain and swelling SLING: Sling immobilization with abduction pillow at all times except for bathing and exercises WEIGHT BEARING: Non-weight bearing EXERCISES: Active range of motion elbow, wrist, and hand Sample Coordinator strengthening Shoulder pendulums PHASE II: (Weeks 1-6) [...] 60-80?? without rotation NO IR/behind the back Sample Coordinator strengthening NO JASS/Canes until week 6 No [...] is usually at 10 to 12 months Param Weaver PT IC MD ASSOCIATE documented in this encounter Plan of Treatment Not on file documented as of this encounter Visit Diagnoses Diagnosis S/P arthroscopy of left shoulder- Primary Traumatic incomplete tear of left rotator cuff, initial encounter Arthritis of left acromioclavicular joint Biceps tendinitis of left upper extremity documented in this encounter Care Teams Etiquette Teacher Relationship Specialty Start Date End Date Judith Walton NP [address] [place] [address] PCP - General 05/26/20 Khushbu Phan PA [address] [facility] [address], [place] [address] Physician Websphere Administrator Orthopedic Surgery 03/27/23 documented as of this encounter
--- OUTSIDE RECORDS SUMMARY | 2024-04-12 13:19 | XMS_ITS | Encounter Summary ---
Author Organization [facility] Address [address] [place] [address] Care Team Providers Care Power Barker Operator Name Role Phone Judith Walton NP Primary Care Provider [phone] Khushbu Phan Unavailable [phone] Reason for Visit * Reason Comments PT Treatment * Consultation (Routine) - Closed Specialty Diagnoses / Procedures Referred By Kody wall Referred To Contact Physical Therapy Diagnoses Traumatic incomplete tear of left rotator cuff, initial encounter Arthritis of left acromioclavicular joint Biceps tendinitis of left upper extremity Misbah Gann PA [address] [place] [address] [address] [place] [address] Phone: tel: fax: [address] [address] Referral ID Status Reason Start Date Expiration Date V isits Requested Visits Authorized [id number] Closed Evaluate and Treat 01/22/2023 01/22/2024 24 14 Encounter Details Date Type Department Care Team (Late st Contact Info) Description 04/26/2023 7:00 AM GEROPSYCHOLOGIST Therapy [facility] [place] [address] Shawna Yanes PTA S/P arthroscopy of left [...] this encounter Progress Notes * Shawna Yanes, INVESTMENT BANKING ANALYST - 04/26/2023 7:00 AM CST Physical Therapy Visit 04/26/2023 Ambar Dawn Joseph 1985 ICD-9-CM ICD-10-CM 1. S/P arthroscopy of left shoulder V45.89 Z98.890 2. Traumatic incomplete tear of left rotator cuff, initial encounter 840.4 S46.012A Subjective: Pain: 07/24 left shoulder Ambar reports [...] of care progressing per her protocol Time in:654 Time out:739 PHASE I: (Weeks 0-1) GOALS: Protect rotator cuff repair Control pain and swelling SLING: Sling immobilization with abduction pillow at all times except for bathing and exercises WEIGHT BEARING: Non-weight bearing EXERCISES: Active range of motion elbow, wrist, and hand Corporate Operations Compliance Manager strengthening Shoulder pendulums PHASE II: (Weeks 1-6) [...] 60-80?? without rotation NO IR/behind the back Corporate Operations Compliance Manager strengthening NO JASS/Canes until week 6 No [...] 10 to 12 months Shawna Yanes PTA PSYCHOLOGIST documented in this encounter Plan of Treatment Not on file documented as of this encounter Visit Diagnoses Diagnosis S/P arthroscopy of left shoulder- Primary Traumatic incomplete tear of left rotator cuff, initial encounter documented in this encounter Care Teams Power Barker Operator Relationship Specialty Start Date End Date Judith Walton NP [address] [place] [address] PCP - General 05/26/20 Khushbu Phan PA [address] [facility] [address] [address] Physician Representative Orthopedic Surgery 03/27/23 documented as of this encounter
--- OUTSIDE RECORDS SUMMARY | 2024-04-12 13:19 | XMS_ITS | Encounter Summary ---
Author Organization [facility] Address [address] [place] [address] Care Team Providers Care Multiple Resaw Operator Name Role Phone Judith Walton NP Primary Care Provider [phone] Khushbu Phan Unavailable [phone] Reason for Visit * Auth/Cert (Routine) Specialty Diagnoses / Procedures Referred By Kody t Referred To Contact Diagnoses Impingement syndrome of left shoulder Arthritis of left acromioclavicular joint Biceps tendinitis on left Impingement syndrome of left shoulder [M75.42] Arthritis of left acromioclavicular joint [M19.012] Biceps tendinitis on left [M75.22] Procedures AK SURGICAL ARTHROSCOPY SHOULDER DSTL CLAVICULC AK SURGICAL ARTHROSCOPY BARRETT W/CORACOACRM LIGM RLS AK SURGICAL ARTHROSCOPY SHOULDER W/ROTATOR CUFF RPR AK TENODESIS LONG TENDON BICEPS Left shoulder arthroscopy, distal claviculectomy, including distal articular surface, decompression of subacromial space with partial acromioplasty with coracoacromial release, rotator cuff repair, open tenodesis of long tendon of biceps--arthroscopy equipment, Irvin and Nephew vapor, Breg Sling shot 2 sling with abduction pillow, NMES, Irvin/Nephew anchors, Spider, Arthrex anchors, beach chair, polar care, biceps tenodesis set (subpec) Arthrex, rotation medical implant on hold Referral ID Status Reason Start Date Expiration Date Visits Re quested Visits Authorized [id number] 1 1 Encounter Details Date Type Department Care Team (Late st Contact Info) Description 03/27/2023 10:15 AM PLASMA PROCESSING TECHNICIAN - 03/27/2023 12:35 PM PLASMA PROCESSING TECHNICIAN Surgery [facility] Operating Room [address] [place] [address] Jayson Grijalva MD [address] [facility] [address] [place] [address] Left shoulder arthroscopy, distal claviculectomy, including distal articular surface, decompression of subacromial space with partial acromioplasty with coracoacromial release, rotator cuff repair, open tenodesis of long tendon of biceps Surgery Details Date/Time Status Location OR Service Patient Class Case Class Case Type Trauma Case? 03/27/2023 10:15 AM Posted [facility] OPERATING ROOM OR Orthopaedics Outpatient Elective Panel 1 Procedure LRB Anes Op Region Wound Class Comments Left shoulder arthroscopy, distal claviculectomy, including distal articular surface, decompression of subacromial space with partial acromioplasty with coracoacromial release, rotator cuff repair, open tenodesis of long tendon of biceps Left General with other Regional Class I - Clean on q pain pump Surgeon Surgeon Role Service Panel Jayson Grijalva MD Primary Orthopaedics 1 Case Notes 03/21 Marco Antonio [email or web address] / Adrian notified / BS documented in this encounter Social History Tobacco Use Types Packs/Day Years Used Date Smoking Tobacco: Former Cigarettes Smokeless Tobacco: Never Tobacco Cessation:Counseling Given: Not Answered AUDIT-C Answer Date Recorded Frequency of Alcohol [...] Sign Reading Time Taken Comments Blood Pressure 106/59 03/27/2023 8:55 AM PLASMA PROCESSING TECHNICIAN Pulse 79 03/27/2023 8:55 AM PLASMA PROCESSING TECHNICIAN Temperature 36 ??C (96.8 ??F) 03/27/2023 8:03 AM PLASMA PROCESSING TECHNICIAN Respiratory Rate 16 03/27/2023 8:55 AM PLASMA PROCESSING TECHNICIAN Oxygen Saturation 99% 03/27/2023 8:55 AM PLASMA PROCESSING TECHNICIAN Inhaled Oxygen Concentration - - Weight 94.5 kg (208 lb 5.4 oz) 03/27/2023 8:03 A M PLASMA PROCESSING TECHNICIAN Height 160 cm (5' 3 ) 03/27/2023 8:03 AM PLASMA PROCESSING TECHNICIAN Body Mass Index 36.9 03/27/2023 8:03 AM PLASMA PROCESSING TECHNICIAN documented in this encounter Discharge Instructions * Attachments The following attachments cannot be sent through Care Everywhere. * General Anesthesia (Discharge Care) (Maldivian) * Ondansetron (By mouth, Into the mouth) (Maldivian) * Oxycodone/Acetaminophen (By mouth) (Maldivian) * Senna (By mouth) (Maldivian) documented in this encounter Medications at Time of Discharge albuterol HFA (PROVENTIL HFA,VENTOLIN HFA,PROAIR HFA) 90 mcg/actuation inhalerIndicatio ns:Acute Asthma Attack,mild Inhale 2 puffs every 6 (six) hours as needed for wheezing or shortness of breath ascorbic acid (vitamin C) 1,000 mg tabletIndication s:supplement Take 1 tablet (1,000 mg total) by mouth every morning atorvastatin (LIPITOR) 10 mg tabletIndication s:hyperlipidemia Take 1 tablet (10 mg total) by mouth nightly 12/31/2022 buPROPion XL (WELLBUTRIN XL) 150 mg 24 [...] by mouth nightly traZODone (DESYREL) 50 mg tabletIndication s:insomnia associated with depression Take 1 tablet (50 mg total) by mouth nightly at bedtime 07/18/2022 vitamin B complex capsuleIndicatio ns:Vitamin Deficiency Prevention Take 1 capsule by mouth every morning vitamin K2 40 mcg tabletIndication s:supplement Take 1 tablet by mouth every morning estradioL (ESTRACE) 2 mg tablet Take 1 tablet (2 mg total) by mouth daily 08/02/2022 4 ondansetron (ZOFRAN) 4 mg tabletIndication s:Prevention of Post-Operative Nausea and Vomiting Take 1 tablet (4 mg total) by mouth every 6 (six) hours as needed for nausea or vomiting 30 tablet 1 03/27/2023 3 oxyCODONE-acetam inophen (PERCOCET) 5-325 mg per tabletIndication s:Pain Take 1 tablet by mouth every 4 (four) hours as needed for pain 30 tablet 03/27/2023 3 senna-docusate (PERICOLACE) 8.6-50 mg Take 1 tablet by mouth 2 (two) times a day as needed for constipation 30 tablet 1 03/27/2023 3 documented as of this encounter Ordered Prescriptions Prescription Sig Dispense Quantity Refills Last Filled Start Date End Date senna-docusate (PERICOLACE) 8.6-50 mg Take 1 tablet by mouth 2 (two) times a day as needed for constipation 30 tablet 1 03/27/2023 3 oxyCODONE-acetami nophen (PERCOCET) 5-325 mg per tabletIndications :Pain Take 1 tablet by mouth every 4 (four) hours as needed for pain 30 tablet 03/27/2023 3 ondansetron (ZOFRAN) 4 mg tabletIndications :Prevention of Post-Operative Nausea and Vomiting Take 1 tablet (4 mg total) by mouth every 6 (six) hours as needed for nausea or vomiting 30 tablet 1 03/27/2023 3 documented in this encounter Discharge Disposition Disposition Code Departure Means Destination Comment s Discharge to home or self care documented in this encounter H&P Notes * Jayson Grijalva MD - 03/27/2023 9:10 AM CST I have reviewed the H&P, examined the patient, and endorse the findings as written. Plan of Care : Based on the above findings, I consider Ambar Alatorre to be an acceptable risk for : Procedure(s): Left shoulder arthroscopy, distal claviculectomy, including distal articular surface, decompressionof subacromial space with partial acromioplasty with coracoacromial release, rotator cuff repair, open tenodesis of long tendon of biceps--arthroscopy equipment, Irvin and Nephew vapor, Breg Sling shot 2 sling with abduction pillow, NMES, Irvin/Nephew anchors, Spider, Arthrex anchors, beach chair, polar care, biceps tenodesis set (subpec) Arthrex, rotation medical implant on hold MA PROCESSING TECHNICIAN Source Note - Misbah Gann PA - 03/26/2023 11:30 AM PLASMA PROCESSING TECHNICIAN Images from the original note were not included. CHIEF COMPLAINT She had concerns including Follow-up of the Left Shoulder. HISTORY OF PRESENT ILLNESS Left shoulder pain for the past 3 months the pain has not recently gotten worse. She did have a fall or 3 which started the problem her pain is burning achy dull and moderate. Heat makes it better everything makes it worse her pain is continuous activity related she is night pain. She is had physical therapy 10s unit anti-inflammatories without relief has an ultrasound showing rotator cuff tear she is here for surgical consultation.Patient is alert and oriented times three. Customer Specialist completed by using M*Modal Fluency Direct speaking software, therefore, transcriptionvariances may occur. Pain Assessment Pain Assessment: 0-10 Pain Score: 6 PAST MEDCIAL HISTORY She has a past medical history of Anemia, Anxiety, Asthma, Depression, Gastric reflux, Hiatal hernia, Hypercholesteremia, and Migraines. PAST SURGICAL HISTORY She has a past surgical history that includes Other surgical history; Hysterectomy; Dalton tooth extraction; Oopherectomy; and Tubal ligation. MEDICATIONS She has a current medication list which includes the following prescription(s): albuterol hfa, atorvastatin, bupropion, cetirizine, escitalopram, escitalopram, estradiol, lamotrigine, meloxicam, montelukast, trazodone, clonazepam, fluticasone propionate, ibuprofen, omeprazole, and tramadol. ALLERGIES She is allergic to latex. SOCIAL HISTORY She reports that she has quit smoking. Her smoking use included cigarettes. She smoked an average of .5 packs per day. She has never used smokeless tobacco. No alcohol history on file. FAMILY HISTORY Her family history includes Alcohol abuse in an other family member; Alzheimer's disease in her father; Arthritis in an other family member; Atrial fibrillation in her father and father's brother; Cancer in an other family member; Diabetes in her maternal grandmother; Diverticulitis in her mother; Hiatal hernia in her mother; Hypertension in her father; Lung disease in an other family member; Ment al illness in an other family member; Stroke in her father. REVIEW OF SYSTEMS Review of Systems Constitutional: Negative for activity change, appetite change, chills, fever and unexpected weight change. HENT: Negative for congestion, dental problem, ear pain, hearing loss, nosebleeds, tinnitus and voice change. Eyes: Positive for visual disturbance. Negative for pain. Respiratory: Negative for apnea, cough, chest tightness and shortness of breath. Cardiovascular: Negative for chest pain, palpitations and leg swelling. Gastrointestinal: Negative for blood in stool, constipation, diarrhea, nausea and vomiting. Endocrine: Negative for cold intolerance and heat intolerance. Genitourinary: Negative for difficulty urinating, hematuria and urgency. Skin: Negative for color change, rash and wound. Allergic/Immunologic: Negative for environmental allergies. Neurological: Positive for headaches. Negative for dizziness, syncope and numbness. Hematological: Negative for adenopathy. Does not bruise/bleed easily. Psychiatric/Behavioral: Negative for confusion. The patient is not nervous/anxious and is not hyperactive. Objective PHYSICAL EXAM BP 113/80 Pulse 70 Ht 160 cm (5' 3 ) Wt 93 kg (205 lb) BMI 36.31 kg/m?? Right shoulder The patient has normal inspection, palpation, range of motion, strength, and stability of the rightshoulder. Strength External rotation 4/5, 5/5 and pain free Left shoulder Inspection The patient has normal inspection of the left shoulder. Palpation Tenderness is present. The patient has tenderness in the acromioclavicular joint, biceps tendon, anterior shoulder and lateral shoulder area(s). Range of motion The patient has normal range of motion of the left shoulder. The patient has pain with range of motion of the left shoulder. Strength The patient has 5/5 strength throughout with exceptions as noted below. Internal rotation: 5/5 and painful External rotation: 5/5, 4/5 and painful Supraspinatus: 4/5, painful and 3/5 Neurovascular The patient has normal vascular on the left side of their body. The patient has normal sensation on the left side of their body. Tests Belly press: negative Cross arm: positive Drop arm: negative Hawkin's test: postive Impingement signs: positive Percy's: percy's Neer's: positive Speed's: positive REVIEW OF X-RAYS/STUDIES/LABS XR Shoulder Left 1 View X-ray of the shoulder are viewed and interpreted in clinic today. Axillary view demonstrate no fracture subluxation or dislocation. Assessment Assessment/Plan Ambar was seen today for follow-up. Diagnoses and all orders for this visit: Left shoulder pain, unspecified chronicity - XR Shoulder Left 1 View Arthritis of left acromioclavicular joint Biceps tendinitis of left upper extremity Impingement syndrome of left shoulder Procedures PLAN I discussed the nature of the patient's condition in the clinic today. We discussed CHIEF COMPLAINT She had concerns including Follow-up of the Left Shoulder. HISTORY OF PRESENT ILLNESS Left shoulder pain for the past 3 months the pain has not recently gotten worse. She did have a fall or 3 which started the problem her pain is burning achy dull and moderate. Heat makes it better everything makes it worse her pain is continuous activity related she is night pain. She is had physical therapy 10s unit anti-inflammatories without relief has an ultrasound showing rotator cuff tear she is here for surgical consultation.Patient is alert and oriented times three. Customer Specialist completed by using M*Modal Fluency Direct speaking software, therefore, transcriptionvariances may occur. Pain Assessment Pain Assessment: 0-10 Pain Score: 6 PAST MEDCIAL HISTORY She has a past medical history of Anemia, Anxiety, Asthma, Depression, Gastric reflux, Hiatal hernia, Hypercholesteremia, and Migraines. PAST SURGICAL HISTORY She has a past surgical history that includes Other surgical history; Hysterectomy; Dalton tooth extraction; Oopherectomy; and Tubal ligation. MEDICATIONS She has a current medication list which includes the following prescription(s): albuterol hfa, atorvastatin, bupropion, cetirizine, escitalopram, escitalopram, estradiol, lamotrigine, meloxicam, montelukast, trazodone, clonazepam, fluticasone propionate, ibuprofen, omeprazole, and tramadol. ALLERGIES She is allergic to latex. SOCIAL HISTORY She reports that she has quit smoking. Her smoking use included cigarettes. She smoked an average of .5 packs per day. She has never used smokeless tobacco. No alcohol history on file. FAMILY HISTORY Her family history includes Alcohol abuse in an other family member; Alzheimer's disease in her father; Arthritis in an other family member; Atrial fibrillation in her father and father's brother; Cancer in an other family member; Diabetes in her maternal grandmother; Diverticulitis in her mother; Hiatal hernia in her mother; Hypertension in her father; Lung disease in an other family member; Ment al illness in an other family member; Stroke in her father. REVIEW OF SYSTEMS Review of Systems Constitutional: Negative for activity change, appetite change, chills, fever and unexpected weight change. HENT: Negative for congestion, dental problem, ear pain, hearing loss, nosebleeds, tinnitus and voice change. Eyes: Positive for visual disturbance. Negative for pain. Respiratory: Negative for apnea, cough, chest tightness and shortness of breath. Cardiovascular: Negative for chest pain, palpitations and leg swelling. Gastrointestinal: Negative for blood in stool, constipation, diarrhea, nausea and vomiting. Endocrine: Negative for cold intolerance and heat intolerance. Genitourinary: Negative for difficulty urinating, hematuria and urgency. Skin: Negative for color change, rash and wound. Allergic/Immunologic: Negative for environmental allergies. Neurological: Positive for headaches. Negative for dizziness, syncope and numbness. Hematological: Negative for adenopathy. Does not bruise/bleed easily. Psychiatric/Behavioral: Negative for confusion. The patient is not nervous/anxious and is not hyperactive. Objective PHYSICAL EXAM BP 113/80 Pulse 70 Ht 160 cm (5' 3 ) Wt 93 kg (205 lb) BMI 36.31 kg/m?? Right shoulder The patient has normal inspection, palpation, range of motion, strength, and stability of the rightshoulder. Strength External rotation 4/5, 5/5 and pain free Left shoulder Inspection The patient has normal inspection of the left shoulder. Palpation Tenderness is present. The patient has tenderness in the acromioclavicular joint, biceps tendon, anterior shoulder and lateral shoulder area(s). Range of motion The patient has normal range of motion of the left shoulder. The patient has pain with range of motion of the left shoulder. Strength The patient has 5/5 strength throughout with exceptions as noted below. Internal rotation: 5/5 and painful External rotation: 5/5, 4/5 and painful Supraspinatus: 4/5, painful and 3/5 Neurovascular The patient has normal vascular on the left side of their body. The patient has normal sensation on the left side of their body. Tests Belly press: negative Cross arm: positive Drop arm: negative Hawkin's test: postive Impingement signs: positive Percy's: percy's Neer's: positive Speed's: positive REVIEW OF X-RAYS/STUDIES/LABS XR Shoulder Left 1 View X-ray of the shoulder are viewed and interpreted in clinic today. Axillary view demonstrate no fracture subluxation or dislocation. Assessment Assessment/Plan Ambar was seen today for follow-up. Diagnoses and all orders for this visit: Left shoulder pain, unspecified chronicity - XR Shoulder Left 1 View Arthritis of left acromioclavicular joint Biceps tendinitis of left upper extremity Impingement syndrome of left shoulder Procedures PLAN I discussed the nature of the patient's condition in the clinic today. We discussed arthroscopic rotator cuff repair , distal clavicle excision, with subacromial decompression, sub Souza biceps tenodesis. Risks and benefits of the procedure were discussed the patient to include bleeding, infection, damage to surrounding structures including nerves and vessels, persistent stiffness, retear, and possible fracture. The patient understood these risks and agreed to proceed with surgery as described above and informed consent was established in the office today. . Risks and benefits of the procedure were discussed the patient to include bleeding, infection, damage to surrounding structures including nerves and vessels, persistent stiffness, retear, and possible fracture. The patient understood these risks and agreed to proceed with surgery as described above and informed consent was established in the office today. Reviewed and no changes to surgical plan since patient was last evaluated and consent was established. Cosigned by Jayson Grijalva MD at 03/27/2023 9:09 AM PLASMA PROCESSING TECHNICIAN MA PROCESSING TECHNICIAN MA PROCESSING TECHNICIAN * Misbah Gann PA - 03/26/2023 11:30 AM CST Images from the original note were not included. CHIEF COMPLAINT She had concerns including Follow-up of the Left Shoulder. HISTORY OF PRESENT ILLNESS Left shoulder pain for the past 3 months the pain has not recently gotten worse. She did have a fall or 3 which started the problem her pain is burning achy dull and moderate. Heat makes it better everything makes it worse her pain is continuous activity related she is night pain. She is had physical therapy 10s unit anti-inflammatories without relief has an ultrasound showing rotator cuff tear she is here for surgical consultation.Patient is alert and oriented times three. Customer Specialist completed by using M*Modal Fluency Direct speaking software, therefore, transcriptionvariances may occur. Pain Assessment Pain Assessment: 0-10 Pain Score: 6 PAST MEDCIAL HISTORY She has a past medical history of Anemia, Anxiety, Asthma, Depression, Gastric reflux, Hiatal hernia, Hypercholesteremia, and Migraines. PAST SURGICAL HISTORY She has a past surgical history that includes Other surgical history; Hysterectomy; Dalton tooth extraction; Oopherectomy; and Tubal ligation. MEDICATIONS She has a current medication list which includes the following prescription(s): albuterol hfa, atorvastatin, bupropion, cetirizine, escitalopram, escitalopram, estradiol, lamotrigine, meloxicam, montelukast, trazodone, clonazepam, fluticasone propionate, ibuprofen, omeprazole, and tramadol. ALLERGIES She is allergic to latex. SOCIAL HISTORY She reports that she has quit smoking. Her smoking use included cigarettes. She smoked an average of .5 packs per day. She has never used smokeless tobacco. No alcohol history on file. FAMILY HISTORY Her family history includes Alcohol abuse in an other family member; Alzheimer's disease in her father; Arthritis in an other family member; Atrial fibrillation in her father and father's brother; Cancer in an other family member; Diabetes in her maternal grandmother; Diverticulitis in her mother; Hiatal hernia in her mother; Hypertension in her father; Lung disease in an other family member; Ment al illness in an other family member; Stroke in her father. REVIEW OF SYSTEMS Review of Systems Constitutional: Negative for activity change, appetite change, chills, fever and unexpected weight change. HENT: Negative for congestion, dental problem, ear pain, hearing loss, nosebleeds, tinnitus and voice change. Eyes: Positive for visual disturbance. Negative for pain. Respiratory: Negative for apnea, cough, chest tightness and shortness of breath. Cardiovascular: Negative for chest pain, palpitations and leg swelling. Gastrointestinal: Negative for blood in stool, constipation, diarrhea, nausea and vomiting. Endocrine: Negative for cold intolerance and heat intolerance. Genitourinary: Negative for difficulty urinating, hematuria and urgency. Skin: Negative for color change, rash and wound. Allergic/Immunologic: Negative for environmental allergies. Neurological: Positive for headaches. Negative for dizziness, syncope and numbness. Hematological: Negative for adenopathy. Does not bruise/bleed easily. Psychiatric/Behavioral: Negative for confusion. The patient is not nervous/anxious and is not hyperactive. Objective PHYSICAL EXAM BP 113/80 Pulse 70 Ht 160 cm (5' 3 ) Wt 93 kg (205 lb) BMI 36.31 kg/m?? Right shoulder The patient has normal inspection, palpation, range of motion, strength, and stability of the rightshoulder. Strength External rotation 4/5, 5/5 and pain free Left shoulder Inspection The patient has normal inspection of the left shoulder. Palpation Tenderness is present. The patient has tenderness in the acromioclavicular joint, biceps tendon, anterior shoulder and lateral shoulder area(s). Range of motion The patient has normal range of motion of the left shoulder. The patient has pain with range of motion of the left shoulder. Strength The patient has 5/5 strength throughout with exceptions as noted below. Internal rotation: 5/5 and painful External rotation: 5/5, 4/5 and painful Supraspinatus: 4/5, painful and 3/5 Neurovascular The patient has normal vascular on the left side of their body. The patient has normal sensation on the left side of their body. Tests Belly press: negative Cross arm: positive Drop arm: negative Hawkin's test: postive Impingement signs: positive Percy's: percy's Neer's: positive Speed's: positive REVIEW OF X-RAYS/STUDIES/LABS XR Shoulder Left 1 View X-ray of the shoulder are viewed and interpreted in clinic today. Axillary view demonstrate no fracture subluxation or dislocation. Assessment Assessment/Plan Ambar was seen today for follow-up. Diagnoses and all orders for this visit: Left shoulder pain, unspecified chronicity - XR Shoulder Left 1 View Arthritis of left acromioclavicular joint Biceps tendinitis of left upper extremity Impingement syndrome of left shoulder Procedures PLAN I discussed the nature of the patient's condition in the clinic today. We discussed CHIEF COMPLAINT She had concerns including Follow-up of the Left Shoulder. HISTORY OF PRESENT ILLNESS Left shoulder pain for the past 3 months the pain has not recently gotten worse. She did have a fall or 3 which started the problem her pain is burning achy dull and moderate. Heat makes it better everything makes it worse her pain is continuous activity related she is night pain. She is had physical therapy 10s unit anti-inflammatories without relief has an ultrasound showing rotator cuff tear she is here for surgical consultation.Patient is alert and oriented times three. Customer Specialist completed by using M*Modal Fluency Direct speaking software, therefore, transcriptionvariances may occur. Pain Assessment Pain Assessment: 0-10 Pain Score: 6 PAST MEDCIAL HISTORY She has a past medical history of Anemia, Anxiety, Asthma, Depression, Gastric reflux, Hiatal hernia, Hypercholesteremia, and Migraines. PAST SURGICAL HISTORY She has a past surgical history that includes Other surgical history; Hysterectomy; [place] tooth extraction; Oopherectomy; and Tubal ligation. MEDICATIONS She has a current medication list which includes the following prescription(s): albuterol hfa, atorvastatin, bupropion, cetirizine, escitalopram, escitalopram, estradiol, lamotrigine, meloxicam, montelukast, trazodone, clonazepam, fluticasone propionate, ibuprofen, omeprazole, and tramadol. ALLERGIES She is allergic to latex. SOCIAL HISTORY She reports that she has quit smoking. Her smoking use included cigarettes. She smoked an average of .5 packs per day. She has never used smokeless tobacco. No alcohol history on file. FAMILY HISTORY Her family history includes Alcohol abuse in an other family member; Alzheimer's disease in her father; Arthritis in an other family member; Atrial fibrillation in her father and father's brother; Cancer in an other family member; Diabetes in her maternal grandmother; Diverticulitis in her mother; Hiatal hernia in her mother; Hypertension in her father; Lung disease in an other family member; Ment al illness in an other family member; Stroke in her father. REVIEW OF SYSTEMS Review of Systems Constitutional: Negative for activity change, appetite change, chills, fever and unexpected weight change. HENT: Negative for congestion, dental problem, ear pain, hearing loss, nosebleeds, tinnitus and voice change. Eyes: Positive for visual disturbance. Negative for pain. Respiratory: Negative for apnea, cough, chest tightness and shortness of breath. Cardiovascular: Negative for chest pain, palpitations and leg swelling. Gastrointestinal: Negative for blood in stool, constipation, diarrhea, nausea and vomiting. Endocrine: Negative for cold intolerance and heat intolerance. Genitourinary: Negative for difficulty urinating, hematuria and urgency. Skin: Negative for color change, rash and wound. Allergic/Immunologic: Negative for environmental allergies. Neurological: Positive for headaches. Negative for dizziness, syncope and numbness. Hematological: Negative for adenopathy. Does not bruise/bleed easily. Psychiatric/Behavioral: Negative for confusion. The patient is not nervous/anxious and is not hyperactive. Objective PHYSICAL EXAM BP 113/80 Pulse 70 Ht 160 cm (5' 3 ) Wt 93 kg (205 lb) BMI 36.31 kg/m?? Right shoulder The patient has normal inspection, palpation, range of motion, strength, and stability of the rightshoulder. Strength External rotation 4/5, 5/5 and pain free Left shoulder Inspection The patient has normal inspection of the left shoulder. Palpation Tenderness is present. The patient has tenderness in the acromioclavicular joint, biceps tendon, anterior shoulder and lateral shoulder area(s). Range of motion The patient has normal range of motion of the left shoulder. The patient has pain with range of motion of the left shoulder. Strength The patient has 5/5 strength throughout with exceptions as noted below. Internal rotation: 5/5 and painful External rotation: 5/5, 4/5 and painful Supraspinatus: 4/5, painful and 3/5 Neurovascular The patient has normal vascular on the left side of their body. The patient has normal sensation on the left side of their body. Tests Belly press: negative Cross arm: positive Drop arm: negative Hawkin's test: postive Impingement signs: positive Percy's: percy's Neer's: positive Speed's: positive REVIEW OF X-RAYS/STUDIES/LABS XR Shoulder Left 1 View X-ray of the shoulder are viewed and interpreted in clinic today. Axillary view demonstrate no fracture subluxation or dislocation. Assessment Assessment/Plan Ambar was seen today for follow-up. Diagnoses and all orders for this visit: Left shoulder pain, unspecified chronicity - XR Shoulder Left 1 View Arthritis of left acromioclavicular joint Biceps tendinitis of left upper extremity Impingement syndrome of left shoulder Procedures PLAN I discussed the nature of the patient's condition in the clinic today. We discussed arthroscopic rotator cuff repair , distal clavicle excision, with subacromial decompression, sub Souza biceps tenodesis. Risks and benefits of the procedure were discussed the patient to include bleeding, infection, damage to surrounding structures including nerves and vessels, persistent stiffness, retear, and possible fracture. The patient understood these risks and agreed to proceed with surgery as described above and informed consent was established in the office today. . Risks and benefits of the procedure were discussed the patient to include bleeding, infection, damage to surrounding structures including nerves and vessels, persistent stiffness, retear, and possible fracture. The patient understood these risks and agreed to proceed with surgery as described above and informed consent was established in the office today. Reviewed and no changes to surgical plan since patient was last evaluated and consent was established. Cosigned by Jayson Grijalva MD at 03/27/2023 9:09 AM PLASMA PROCESSING TECHNICIAN MA PROCESSING TECHNICIAN MA PROCESSING TECHNICIAN documented in this encounter Miscellaneous Notes * Op Note - Jayson Grijalva MD - 03/27/2023 10:15 AM CST Images from the original note were not included. Operative Report SURGEON: Jayson Grijalva MD Exhauster Engineer: Solange Brown RN; Stephie Clarke RN Physician Supervisor Sheet Manufacturing: Misbah Gann PA; Cristal Copeland PA Scrub Relief: Esthela Ellis RN Scrub: Steve Holland RN FLOAT: Severiano Barragan RN SURGICAL TEAM: Surgeon(s) and Role: * Jayson Grijalva MD - Primary DATE OF SURGERY : 03/27/2023 PREOPERATIVE DIAGNOSIS: See preoperative H and P POSTOPERATIVE DIAGNOSIS: Post-op Diagnosis * Impingement syndrome of left shoulder [M75.42] * Arthritis of left acromioclavicular joint [M19.012] * Biceps tendinitis on left [M75.22] PROCEDURE: Left shoulder arthroscopy, distal claviculectomy, including distal articular surface, decompressionof subacromial space with partial acromioplasty with coracoacromial release, rotator cuff repair, open tenodesis of long tendon of biceps (L) ANESTHESIA: General with other Regional IMPLANTS: Implant Name Type Inv. Item Serial No. Qualitative Field Project Manager Lot No. LRB No. Used Action [employer] System Biceps [place] Slotted Drill Guide 1.9mm Drill Fibertak AR- 3670 - [id number] [employer] System Biceps [place] Slotted Drill Guide 1.9mm Drill Fibertak AR-3670 [employer] [id number] Left 1 Implanted [employer] Arthrex Fibertak Tape 3 Load Rotator Cuff [place] Suture Sterile Latex Free AR-3633 - [id number] [employer] Arthrex Fibertak Tape 3 Load Rotator Cuff [place] Suture Sterile Latex Free AR-3633 [employer] [id number] Left 1 Implanted [employer] Swivelock C 4.75mm 19.1mm Closed Eyelet Vent [place] Suture AR- [id number] - [id number] [employer] Swivelock C 4.75mm 19.1mm Closed Eyelet Vent [place] Suture [id number] [employer] [id number] Left 1 Implanted Estimated Blood Loss: 20 mL Operation in detail: Patient taken the OR general anesthetic was performed. Patient placed in beach chair position alternatives well-padded arm placed in spider arm tinoco. the shoulder was cleaned prepped and draped in standard sterile technique standard time-out was performed operative strength about also marked properly. After time-out was performed bony landmarks were marked posterior capsule subacromial space injected with lidocaine with epi/ Diagnostic arthroscopy was performed using outside in technique anterior portals placed debrided the unstable labral tissue. Biceps tenodesis was performed by cutting the biceps in the debrided the superior stump of the labrum Incision was then made in the axilla pack was retracted superiorly the biceps was removed drilled anchor in the bicipital groove a locking stitch was placed and the sliding stitch was placed the synovitic biceps tendon was cut and tenodesed in the subpectoral region with multiple half hitches entered the subacromial space using outside in technique posterior lateral and lateral portals wereplaced debride the subacromial subdeltoid bursal tissue released the coracoacromial ligament and remove the soft tissue off the distal clavicle using standard cutting block technique converted the type 2 acromion to a type 1 acromion then excised approximately 10 mm distal clavicle . Prepared the greater tuberosity with the shaver and vapor placed 2 cannulas placed the arm at man's angle with an accessory portal a triple loaded anchor was placed. 3 mattress sutures were placed in the supraspinatus tendon these were tied down and then knotless lateral row anchor were used laterally for a double row rotator cuff repair. The arm was taken through range of motion the cuff and humerus moved as one unit. appropriate repair was obtained portals were closed in standard fashion needle counts sponge counts instrument countswere correct in the case Portals were closed in standard fashion dressings were placed and a sling and abduction pillow was placed. Patient will follow standard rotator cuff repair protocol. Complications: None Condition on Discharge from the operating room was stable Jayson Grijalva MD Date: 03/27/2023 Time: 12:37 PM Customer Specialist completed by using M*Modal Fluency Direct speaking software, therefore, transcriptionvariances may occur. MA PROCESSING TECHNICIAN * Pre-Procedure Instructions - Yaneth Ang RN - 2023 1:49 PM PLASMA PROCESSING TECHNICIAN We are pleased that you and your doctor have chosen [facility] for your surgery. We hope that the following information will help make your visit a pleasant one. Surgery Date: 03/27/2023 Before your surgery: Notify your doctor of ANY change in your health such as a cold, sore throat, fever, any infection or a change in the problem for which you are having your surgery. Follow any instructions given to you by your doctor or surgeon. Check with your doctor if you need to STOP taking: Aspirin (ordered by your doctor) Plavix Coumadin One week before surgery STOP taking: All herbal supplements Aspirin (not ordered by your doctor) Aleve, Advil, Motrin, Ibuprofen, or other similar medications (Tylenol is okay). 24 hours before your surgery: No smoking or alcoholic drinks. Night before your surgery: Do not eat or drink anything after midnight. Follow surgeon's instructions for anti-bacterial shower night before and morning of surgery. Day of surgery: Do not swallow any water when you brush your teeth. ONLY take these pills with a tiny sip of water. Pre-Surgery Instructions: Medication Instructions albuterol HFA (PROVENTIL HFA,VENTOLIN HFA,PROAIR HFA) 90 mcg/actuation inhaler Take morning of surgery ascorbic acid (vitamin C) 1,000 mg tablet Stop taking 1 week prior to surgery atorvastatin (LIPITOR) 10 mg tablet Stop taking 1 days prior to surgery buPROPion XL (WELLBUTRIN XL) 150 mg 24 hr tablet Take morning of surgery calcium carbonate (CALCIUM 500 ORAL) Stop taking 1 week prior to surgery cholecalciferol 25 mcg (1,000 unit) tablet Stop taking 1 week prior to surgery escitalopram (LEXAPRO) 5 mg tablet Stop taking 1 days prior to surgery estradioL (ESTRACE) 2 mg tablet Stop taking 1 days prior to surgery ferrous sulfate 325 mg (65 mg of elemental iron) tablet Stop taking 1 week prior to surgery ibuprofen (ADVIL,MOTRIN) 800 mg tablet Stop taking 1 week prior to surgery lamoTRIgine (LaMICtal) 25 mg tablet Stop taking 1 days prior to surgery montelukast (SINGULAIR) 10 mg tablet Stop taking 1 days prior to surgery traZODone (DESYREL) 50 mg tablet Stop taking 1 days prior to surgery vitamin B complex capsule Stop taking 1 week prior to surgery vitamin K2 40 mcg tablet Stop taking 1 week prior to surgery cetirizine (ZyrTEC) 10 mg tablet Stop taking 1 days prior to surgery fluticasone propionate (FLONASE) 50 mcg/actuation nasal spray Stop taking 1 days prior to surgery omeprazole (PriLOSEC) 10 mg capsule Stop taking 1 days prior to surgery Use no make-up, nail welsh, lotions, oils or powders on your skin. Wear comfortable clothes that will not be tight in the area of your surgery. Leave all valuables and jewelry (including all body piercing jewelry) at home. Please bring your a photo ID and insurance cards with you. Check in at the Registration Desk. downstairs in the Ambulatory Surgery Department. You will come in the main entrance and go down the james until you see the [employer]coffee shop, there will be elevators to the right, take those down to LL1. You will exist the elevators to the right and go down the james and you will pass Medical Imaging on the left and we will be the next department on the right, you will see the sign above that says Ambulatory Surgery Department check-in. After your Outpatient Surgery: You must have a responsible adult to drive you home, you will not be allowed to drive or take a cabhome. We recommend you have someone stay with you for 24 hours after your surgery. What to bring if you are spending the night with us: Bring toiletry items such as: robe, slippers, toothbrush, toothpaste, brush or comb. Bring contact lens, hearing aids, glass cases and denture container if you use any of these items. The hospital will provide you with a gown. Questions or concerns: If you have any questions or concerns regarding your procedure, contact your surgeon as soon as possible. If you have questions regarding your Pre-Admission Testing, please call us. We can be reached at the number posted at the top of the page. MA PROCESSING TECHNICIAN documented in this encounter Plan of Treatment Not on file documented as of this encounter Procedures Procedure Name Priority Date/Time Associated Diagnosis Comments ARTHROSCOPY SHOULDER 03/27/2023 10:08 AM PLASMA PROCESSING TECHNICIAN Impingement syndrome of left shoulder Arthritis of left acromioclavicular joint Biceps tendinitis on left Case Notes 03/21 Marco Antonio [email or web address] / Adrian notified / BS documented in this encounter Visit Diagnoses Diagnosis Arthritis of left acromioclavicular joint- Primary Arthritis of left acromioclavicular joint Biceps tendinitis on left Impingement syndrome of left shoulder Complete tear of left rotator cuff, unspecified whether traumatic Impingement syndrome of left shoulder Biceps tendinitis on left Impingement syndrome of left shoulder Arthritis of left acromioclavicular joint Biceps tendinitis on left documented in this encounter Admitting Diagnoses Diagnosis Impingement syndrome of left shoulder Arthritis of left acromioclavicular joint Biceps tendinitis on left documented in this encounter Administered Medications Inactive Administered Medications - up to 3 most recent administrations Medication Order MAR Action Action Date Dose Rate Site acetaminophen (TYLENOL) tablet 1,000 mg 1,000 mg, oral, Once, On Sun03/27/23 at 0830, For 1 dose, Pre-Op, Indications: Pre-Emptive AnalgesiaIndications:Pre-Em ptive Analgesia Given 03/27/2023 8:17 AM PLASMA PROCESSING TECHNICIAN 1,000 mg benzoyl peroxide 5 % external liquid topical, Once, On Sun03/27/23 at 0830, For 1 dose, Pre-Op, Apply to affected area: shoulder, Laterality: Left, Indications: Acne VulgarisIndications:Acne Vulgaris Given 03/27/2023 8:17 AM PLASMA PROCESSING TECHNICIAN BUPivacaine (PF) 0.125% (MARCAINE) in On-Q reservoir 640 mL 6 mL/hr, perineural, Continuous, Starting on Sun03/27/23 at 0900, Pre-Op, Do NOT squeeze the On-Q pump. Make sure tubing clamp is open. If the tubing appears kinked/crimped, massage area of tubing to facilitate flow. Make sure the dressing over the catheter site remains clean and dry. Do NOT remove remove dressing as this may dislodge the catheter. If wound drainage is present and/or dressing is not secure, reinforce and call MD. Do NOT tape over the in-line filter. This can affect flow rate. Do NOT use cold therapy or ice around the infuser. To be started during procedure., Catheter Site: Interscalene, Catheter Side: Left, Indications: Postoperative PainIndications:Postoperati ve Pain New Bag 03/27/2023 1:04 PM PLASMA PROCESSING TECHNICIAN 6 mL/hr 6 mL/hr clindamycin (CLEOCIN) 900 mg/50 mL in dextrose 5% (premix) 900 mg 900 mg, intravenous, Once, On Sun03/27/23 at 0830, For 1 dose, Pre-Op, Indications: Prophylaxis, SurgicalIndications:Prophyl axis, Surgical New Bag 03/27/2023 8:17 AM PLASMA PROCESSING TECHNICIAN 900 mg EPINEPHrine 3 mg in Lactated Ringer's (LR) 3,000 mL irrigation solution irrigation, Once, On Sun03/27/23 at 0830, For 1 dose, Intra-Op, Bag #1 Given 03/27/2023 11:18 AM PLASMA PROCESSING TECHNICIAN 3,000 mL Surgical Site EPINEPHrine 3 mg in Lactated Ringer's (LR) 3,000 mL irrigation solution irrigation, Once, On Sun03/27/23 at 0830, For 1 dose, Intra-Op, Bag #2 Given 03/27/2023 11:18 AM PLASMA PROCESSING TECHNICIAN 3,000 mL Surgical Site HYDROmorphone (PF) (DILAUDID) injection 0.2 mg 0.2 mg, intravenous, Administer over 2 Minutes, Every 10 min PRN, 1st line for pain, Starting on Sun03/27/23 at 1254, Phase I, Switch to 2nd line analgesic order if pain is uncontrolled or increasing after 2 doses. Notify Anesthesiologist if total PACU dose reaches 2 mg and pain score 5/10 or more., Indications: PainIndications:Pain Given 03/27/2023 1:00 PM PLASMA PROCESSING TECHNICIAN 0.2 mg Lactated Ringer's (LR) infusion 30 mL/hr, intravenous, Continuous, Starting on Sun03/27/23 at 0830, Pre-Op New Bag 03/27/2023 12:16 PM PLASMA PROCESSING TECHNICIAN Restarted 03/27/2023 11:42 AM PLASMA PROCESSING TECHNICIAN Rate/Dose Change 03/27/2023 10:44 AM PLASMA PROCESSING TECHNICIAN 30 mL/ hr Lactated Ringer's (LR) irrigation As needed, Starting on Sun03/27/23 at 1119, Intra-Op Given 03/27/2023 11:19 AM PLASMA PROCESSING TECHNICIAN 6,000 mL Surgical Site lidocaine EPINEPHrine (XYLOCAINE with EPI) 0.5 %-1:200,000 injection As needed, Starting on Sun03/27/23 at 1117, Intra-Op, Indications: Administration of Local AnesthesiaIndications:Adm inistration of Local Anesthesia Given 03/27/2023 11:17 AM PLASMA PROCESSING TECHNICIAN 20 mL Surgical Site oxyCODONE-acetaminophen (PERCOCET) 5-325 mg per tablet 1 tablet 1 tablet, oral, Once, On Sun03/27/23 at 1430, For 1 dose, Indications: PainIndications:Pain Given 03/27/2023 2:07 PM PLASMA PROCESSING TECHNICIAN 1 tablet prochlorperazine (COMPAZINE) injection 5 mg 5 mg, intravenous, Administer over 2 Minutes, Once as needed, nausea, vomiting, Starting on Sun03/27/23 at 1259, For 1 dose, Phase I Given 03/27/2023 1:03 PM PLASMA PROCESSING TECHNICIAN 5 mg scopolamine patch 72 hour 1 patch 1 patch, transdermal, Administer over 72 Hours, Once, On Sun03/27/23 at 0900, For 1 dose, Pre-Op Medication Applied 03/27/2023 8:26 AM PLASMA PROCESSING TECHNICIAN 1 patch Behind Right Ear documented in this encounter Discontinued Medications Medication Sig Discontinue Reason Start Date End Da te clonazePAM (KlonoPIN) 1 mg tablet Take 1 tablet (1 mg total) by mouth daily Therapy completed 04/27/2022 2023 buPROPion (WELLBUTRIN) 75 mg tablet Take 1 tablet (75 mg total) by mouth every morning Therapy completed 02/12/2023 2023 escitalopram (LEXAPRO) 10 mg tablet Take 1 tablet (10 mg total) by mouth daily Therapy completed 02/12/2023 2023 meloxicam (MOBIC) 15 mg tabletIndications:Osteoa rthritis Take 1 tablet (15 mg total) by mouth daily Therapy completed 01/17/2023 2023 traMADoL (ULTRAM) 50 mg tablet Take 1 tablet (50 mg total) by mouth every 6 (six) hours Therapy completed 2023 documented as of this encounter Historical Medications * This list may reflect changes made after this encounter. vitamin B complex capsuleIndication s:Vitamin Deficiency Prevention Take 1 capsule by mouth every morning calcium carbonate (CALCIUM 500 ORAL)Indications: supplement Take 1 tablet by mouth every morning ferrous sulfate 325 mg (65 mg of elemental iron) tabletIndications :Iron Deficiency Anemia Take 1 tablet (325 mg total) by mouth every morning cholecalciferol 25 mcg (1,000 unit) tabletIndications :supplement Take 1 tablet (1,000 Units total) by mouth every morning vitamin K2 40 mcg tabletIndications :supplement Take 1 tablet by mouth every morning ascorbic acid (vitamin C) 1,000 mg tabletIndications :supplement Take 1 tablet (1,000 mg total) by mouth every morning buPROPion XL (WELLBUTRIN XL) 150 mg 24 hr tabletIndications :Anxiety with Depression Take 1 tablet (150 mg total) by mouth every morning 02/27/2023 added in this encounter Active and Recently Administered Medications Times are shown in PLASMA PROCESSING TECHNICIAN. Scheduled Medication Order 03/25/2023 03/26/2023 03/27/2023 acetaminophen (TYLENOL) tablet 1,000 mg (COMPLETED) 1,000 mg, oral, Once, On Sun03/27/23 at 0830, For 1 dose, Pre-Op, Indications: Pre-Emptive Analgesia 0817 (Given - Provid er: Jayna Cat, [place]) benzoyl peroxide 5 % external liquid (COMPLETED) topical, Once, On Sun03/27/23 at 0830, For 1 dose, Pre-Op, Apply to affected area: shoulder, Laterality: Left, Indications: Acne Vulgaris 0817 (Given - Provid er: Jayna Cat, [place]) ceFAZolin (ANCEF) 2,000 mg/20 mL in sterile water (premix) 2,000 mg (COMPLETED) 2,000 mg, intravenous, at 400 mL/hr, Administer over 3 Minutes, Once, On Sun03/27/23 at 0830, For 1 dose, Pre-Op, Administer within 60 minutes of incision., Indications: Prophylaxis, Surgical 1046 (Given - Provid er: Jose Alejandro Thomas CRNA) clindamycin (CLEOCIN) 900 mg/50 mL in dextrose 5% (premix) 900 mg (COMPLETED) 900 mg, intravenous, Once, On Sun03/27/23 at 0830, For 1 dose, Pre-Op, Indications: Prophylaxis, Surgical 0817 (New Bag - Prov ider: Jayna Cat RN) EPINEPHrine 3 mg in Lactated Ringer's (LR) 3,000 mL irrigation solution (COMPLETED) irrigation, Once, On Sun03/27/23 at 0830, For 1 dose, Intra-Op, Bag #1 0830 (Due)1118 (Give n - Provider: Jayson Grijalva MD) EPINEPHrine 3 mg in Lactated Ringer's (LR) 3,000 mL irrigation solution (COMPLETED) irrigation, Once, On Sun03/27/23 at 0830, For 1 dose, Intra-Op, Bag #2 0830 (Due)1118 (Give n - Provider: Jayson Grijalva MD) oxyCODONE-acetaminophen (PERCOCET) 5-325 mg per tablet 1 tablet (COMPLETED) 1 tablet, oral, Once, On Sun03/27/23 at 1430, For 1 dose, Indications: Pain 1407 (Given - Provid er: Jayna Cat RN) scopolamine patch 72 hour 1 patch 1 patch, transdermal, Administer over 72 Hours, Once, On Sun03/27/23 at 0900, For 1 dose, Pre-Op 0826 (Medication Angelita lied - Provider: Jayna Cat RN)1455 (Due: Medication Removed - Provider: Automatic Discharge Provider - Comment: Time automatically adjusted from order being discontinued) Continuous Medication Order 03/25/2023 03/26/2023 03/27/2023 BUPivacaine (PF) 0.125% (MARCAINE) in On-Q reservoir 640 mL 6 mL/hr, perineural, Continuous, Starting on Sun03/27/23 at 0900, Pre-Op, Do NOT squeeze the On-Q pump. Make sure tubing clamp is open. If the tubing appears kinked/crimped, massage area of tubing to facilitate flow. Make sure the dressing over the catheter site remains clean and dry. Do NOT remove remove dressing as this may dislodge the catheter. If wound drainage is present and/or dressing is not secure, reinforce and call MD. Do NOT tape over the in-line filter. This can affect flow rate. Do NOT use cold therapy or ice around the infuser. To be started during procedure., Catheter Site: Interscalene, Catheter Side: Left, Indications: Postoperative Pain 1304 (New Bag - Prov ider: Sangeetha Schultz RN - Comment: no blood return noted upon aspiration of line)1908 (Due: Stopped) Lactated Ringer's (LR) infusion 30 mL/hr, intravenous, Continuous, Starting on Sun03/27/23 at 0830, Pre-Op 0817 (New Bag - Prov ider: Jayna Cat RN)1030 (Rate/Dose Verify - Provider: Jose Alejandro Thomas CRNA)1044 (Rate/Dose Change - Provider: Jose Alejandro Thomas CRNA)1141 (Paused - Provider: Jose Alejandro Thomas CRNA - Comment: Switch to gravity)1142 (Restarted - Provider: Jose Alejandro Thomas CRNA)1216 (New Bag - Provider: Jose Alejandro Thomas CRNA)1908 (Due: Stopped) PRN Medication Order 03/25/2023 03/26/2023 03/27/2023 HYDROmorphone (PF) (DILAUDID) injection 0.2 mg (CANCELED) 0.2 mg, intravenous, Administer over 2 Minutes, Every 10 min PRN, 1st line for pain, Starting on Sun03/27/23 at 1254, Phase I, Switch to 2nd line analgesic order if pain is uncontrolled or increasing after 2 doses. Notify Anesthesiologist if total PACU dose reaches 2 mg and pain score 5/10 or more., Indications: Pain 1300 (Given - Provid er: Sangeetha Schultz RN) Lactated Ringer's (LR) irrigation (CANCELED) As needed, Starting on Sun03/27/23 at 1119, Intra-Op 1119 (Given - Provid er: Jayson Grijalva MD) lidocaine EPINEPHrine (XYLOCAINE with EPI) 0.5 %-1:200,000 injection (CANCELED) As needed, Starting on Sun03/27/23 at 1117, Intra-Op, Indications: Administration of Local Anesthesia 1117 (Given - Provid er: Jayson Grijalva MD) prochlorperazine (COMPAZINE) injection 5 mg (COMPLETED) 5 mg, intravenous, Administer over 2 Minutes, Once as needed, nausea, vomiting, Starting on Sun03/27/23 at 1259, For 1 dose, Phase I 1303 (Given - Provid er: Sangeetha Schultz RN) documented in this encounter Orders Medications Ordered That Lyle ht Not Have Been Administered Count Last Ordered Date First Ordered Date BUPivacaine-EPINEPHrine (MAR JONNY with EPI) 0.5 %-1:200,000 preservative free injection - ADS Override Pull 1 03/27/2023 ceFAZolin (ANCEF) 2,000 mg/2 0 mL in sterile water (premix) 2,000 mg 1 03/27/2023 fentaNYL (SUBLIMAZE) 50 mcg/ mL preservative free injection - ADS Override Pull 1 03/27/2023 HYDROmorphone (PF) (DILAUDID ) injection 0.4 mg 1 03/27/2023 midazolam (VERSED) 2 mg/2 mL preservative free injection - ADS Override Pull 1 03/27/2023 naloxone (NARCAN) 0.4 mg/mL injection 0.04-0.4 mg 1 03/27/2023 tranexamic acid (CYKLOKAPRON ) 1,000 mg/100 mL (10 mg/mL) in sodium chloride (premix) 1,000 mg 1 03/27/2023 Diet Count Last Ordered Date First Orde red Date ADULT DISCHARGE DIET 1 03/27/2023 Nursing Count Last Ordered Date First Orde red Date DISCHARGE ACTIVITY 5 03/27/2023 DISCHARGE CALL PROVIDER 5 03/27/2023 DISCHARGE DRESSING 2 03/27/2023 DISCHARGE INSTRUCTIONS 2 03/27/2023 FOLLOW UP WITH ESTABLISHED PROVIDER 1 03/27 Discharge Count Last Ordered Date First Orde red Date DISCHARGE PATIENT 1 03/27/2023 documented in this encounter Care Teams Multiple Resaw Operator Relationship Specialty Start Date End Date Judith Walton NP [address] [place] [address] PCP - General 05/26/20 Khushbu Phan PA 4 [facility] [address] [address] Physician Supervisor Sheet Manufacturing Orthopedic Surgery 03/27/23 documented as of this encounter
--- OUTSIDE RECORDS SUMMARY | 2024-04-12 13:19 | XMS_ITS | Encounter Summary ---
Author Organization [facility] Address [address] [place] [address] Care Team Providers Care Burner Operator Name Role Phone Anton Judith Salgado NP Primary Care Provider + [phone] Khushbu Phan Unavailable [phone] Reason for Visit * Reason Comments PT Treatment * Consultation (Routine) - Closed Specialty Diagnoses / Procedures Referred By Contadrian t Referred To Contact Physical Therapy Diagnoses S/P arthroscopy of left shoulder Jayson Grijalva MD [address] [place] [address] [address] [facility] [address] [place] [address] Phone: tel: fax: [address] [phone] Referral ID Status Reason Start Date Expiration Date V isits Requested Visits Authorized [id number] Closed Evaluate and Treat 02/16/2023 04/15/2023 18 13 Encounter Details Date Type Department Care Team (Late st Contact Info) Description 04/05/2023 7:00 AM BORDER MEASURER Therapy [facility] [place] [address] Shawna Yanes PTA S/P arthroscopy of left [...] you are drinking? Patient does not drink 12/05/202 3 Frequency of Binge Drinking Not on file 08/2022 Personal Safety Answer Date Recorded Getting School Help Needed Denies 03/26 Comments No Sex and Gender Information Value Date Recorded Sex Assigned at Not on file Legal Sex Female 11:20 PM CDT Gender Identity Not on file Sexual Orientation Not on file documented as of this encounter Progress Notes * Shawna Yanes, LOGGING OPERATIONS INSPECTOR - 04/05/2023 7:00 AM CST Physical Therapy Visit 04/05/2023 Ambar Alatorre 1985 ICD-9-CM ICD-10-CM 1. S/P arthroscopy of left shoulder V45.89 Z98.890 2. Traumatic incomplete tear of left rotator cuff, initial encounter 840.4 S46.012A Subjective: Pain: 08/23 left shoulder Ambar denies any new complaints after her initial evaluation She states she is only taking over the counter medication for pain Objective: Status post Left shoulder [...] range of motion elbow, wrist, and hand Bailiff strengthening Shoulder pendulums PHASE II: (Weeks 1-6) [...] 60-80?? without rotation NO IR/behind the back Bailiff strengthening NO JASS/Canes until week 6 No [...] 10 to 12 months Shawna Yanes PTA ER MEASURER documented in this encounter Plan of Treatment Not on file documented as of this encounter Visit Diagnoses Diagnosis S/P arthroscopy of left shoulder- Primary Traumatic incomplete tear of left rotator cuff, initial encounter documented in this encounter Care Teams Burner Operator Relationship Specialty Start Date End Date Judith Walton NP [address] [place] [address] PCP - General 05/26/20 Khushbu Phan PA [address] [facility] [address] [place] [address] Physician Saddle Lining Stitcher Orthopedic Surgery 03/27/23 documented as of this encounter
--- OUTSIDE RECORDS SUMMARY | 2024-04-12 13:19 | XMS_ITS | Encounter Summary ---
Author Organization [facility] Address [address] [place] [address] Care Team Providers Care Field Pipelines Supervisor Name Role Phone AntonPareshJudithyifan Salgado NP Primary Care Provider + [phone] Khushbu Phan Unavailable [phone] Reason for Visit * Reason Comments PT Treatment * Consultation (Routine) - Closed Specialty Diagnoses / Procedures Referred By Contadrian t Referred To Contact Physical Therapy Diagnoses S/P arthroscopy of left shoulder Jayson Grijalva MD [address] [place] [address] [address] [facility] [address] [place] [address] Phone: tel: fax: [address] [phone] Referral ID Status Reason Start Date Expiration Date V isits Requested Visits Authorized [id number] Closed Evaluate and Treat 02/16/2023 04/15/2023 18 13 Encounter Details Date Type Department Care Team (Late st Contact Info) Description 04/13/2023 7:00 AM LITHOGRAPHER APPRENTICE Therapy [facility] [place] [address] Shawna Yanes PTA S/P arthroscopy of left [...] this encounter Progress Notes * Shawna Yanes, ASSISTANCE COORDINATOR - 04/13/2023 7:00 AM CST Physical Therapy Visit 04/13/2023 Ambar Alatorre 1985 ICD-9-CM ICD-10-CM 1. S/P arthroscopy of left shoulder V45.89 Z98.890 Subjective: Pain: 06/23 left shoulder Ambar reports she is now able to sleep in bed Objective: Status post Left shoulder arthroscopy, distal [...] range of motion elbow, wrist, and hand Felt Hat Mellowing Machine Operator strengthening Shoulder pendulums PHASE II: (Weeks 1-6) [...] 60-80?? without rotation NO IR/behind the back Felt Hat Mellowing Machine Operator strengthening NO JASS/Canes until week 6 No [...] 10 to 12 months Shawna Yanes PTA OGRAPHER APPRENTICE documented in this encounter Plan of Treatment Not on file documented as of this encounter Visit Diagnoses Diagnosis S/P arthroscopy of left shoulder- Primary documented in this encounter Care Teams Field Pipelines Supervisor Relationship Specialty Start Date End Date Judith Walton NP [address] [place] [address] PCP - General 05/26/20 Khushbu Phan PA [address] [facility] [address], [place] [address] Physician Pediatric Physiatrist Orthopedic Surgery 03/27/23 documented as of this encounter
--- OUTSIDE RECORDS SUMMARY | 2024-04-12 13:19 | XMS_ITS | Encounter Summary ---
Author Organization [facility] Address [address] [place] [address] Care Team Providers Care Inside Channel Account Manager Name Role Phone Judith Walton NP Primary Care Provider [phone] Khushbu Phan Unavailable [phone] Encounter Details Date Type Department Care Team (Late st Contact Info) Description 04/03/2023 Plan of Care Documentation [facility] Physical Therapy - Kim Rico [place] [address] Social History Tobacco Use Types Packs/Day Years [...] on filedocumented in this encounter Care Teams Inside Channel Account Manager Relationship Specialty Start Date End Date Judith Walton NP [address] [place] [address] PCP - General 05/26/20 Khushbu Phan PA [address] [facility] [address] [place] [address] Physician Erp Specialist Orthopedic Surgery 03/27/23 documented as of this encounter
--- OUTSIDE RECORDS SUMMARY | 2024-04-12 13:19 | XMS_ITS | Encounter Summary ---
Author Organization [facility] Address [address] [place] [address] Care Team Providers Care Manager Transport Name Role Phone Judith Walton NP Primary Care Provider [phone] Khushbu Phan Unavailable [phone] Reason for Visit * Reason Comments PT Treatment * Consultation (Routine) - Closed Specialty Diagnoses / Procedures Referred By Kody wall Referred To Contact Physical Therapy Diagnoses Traumatic incomplete tear of left rotator cuff, initial encounter Arthritis of left acromioclavicular joint Biceps tendinitis of left upper extremity Misbah Gann PA [address] [place] [address] [address] [place] [address] Phone: tel: fax: [address] [phone] Referral ID Status Reason Start Date Expiration Date V isits Requested Visits Authorized [id number] Closed Evaluate and Treat 01/22/2023 01/22/2024 24 14 Encounter Details Date Type Department Care Team (Late st Contact Info) Description 04/24/2023 7:00 AM SLAT BASKET MAKER HELPER Therapy [facility] [place] [address] Shawna Yanes PTA S/P arthroscopy of left [...] this encounter Progress Notes * Shawna Yanes, WEEKEND CAREGIVER - 04/24/2023 7:00 AM CST Physical Therapy Visit 04/24/2023 Ambar Dawn Joseph 1985 ICD-9-CM ICD-10-CM 1. S/P arthroscopy of left shoulder V45.89 Z98.890 2. Traumatic incomplete tear of left rotator cuff, initial encounter 840.4 S46.012A Subjective: Pain: 07/24 left shoulder Ambar reports she has had a few rough days Objective: Status post Left shoulder arthroscopy, distal [...] of care progressing per her protocol Time in:701 Time out:746 PHASE I: (Weeks 0-1) GOALS: Protect rotator cuff repair Control pain and swelling SLING: Sling immobilization with abduction pillow at all times except for bathing and exercises WEIGHT BEARING: Non-weight bearing EXERCISES: Active range of motion elbow, wrist, and hand Bead Cutter strengthening Shoulder pendulums PHASE II: (Weeks 1-6) [...] 60-80?? without rotation NO IR/behind the back Bead Cutter strengthening NO JASS/Canes until week 6 No [...] 10 to 12 months Shawna Yanes PTA BASKET MAKER HELPER documented in this encounter Plan of Treatment Not on file documented as of this encounter Visit Diagnoses Diagnosis S/P arthroscopy of left shoulder- Primary Traumatic incomplete tear of left rotator cuff, initial encounter documented in this encounter Care Teams Manager Transport Relationship Specialty Start Date End Date Judith Walton NP [address] [place] [address] PCP - General 05/26/20 Khushbu Phan PA 4 [facility] [address], [place] [address] Physician Brazing Furnace Operator Orthopedic Surgery 03/27/23 documented as of this encounter
--- OUTSIDE RECORDS SUMMARY | 2024-04-12 13:19 | XMS_ITS | Encounter Summary ---
Author Organization [facility] Address [address] [place] [address] Care Team Providers Care Death Surveys Coder Name Role Phone Judith Walton NP Primary Care Provider [phone] Khushbu Phan Unavailable [phone] Reason for Visit * Reason Comments PT Treatment * Consultation (Routine) - Closed Specialty Diagnoses / Procedures Referred By Kody wall Referred To Contact Physical Therapy Diagnoses Traumatic incomplete tear of left rotator cuff, initial encounter Arthritis of left acromioclavicular joint Biceps tendinitis of left upper extremity Misbah Gann PA [address] [place] [address] [address] [place] [address] Phone: tel: fax: [address] [phone] Referral ID Status Reason Start Date Expiration Date V isits Requested Visits Authorized [id number] Closed Evaluate and Treat 01/22/2023 01/22/2024 24 14 Encounter Details Date Type Department Care Team (Late st Contact Info) Description 04/18/2023 7:00 AM CLINICAL FACULTY Therapy [facility] [place] [address] Shawna Yanes PTA S/P arthroscopy of left [...] this encounter Progress Notes * Shawna Yanes, ROUSTABOUT CREW - 04/18/2023 7:00 AM CST Physical Therapy Visit 04/18/2023 Ambar Dawn Joseph 1985 ICD-9-CM ICD-10-CM 1. S/P arthroscopy of left shoulder V45.89 Z98.890 2. Traumatic incomplete tear of left rotator cuff, initial encounter 840.4 S46.012A Subjective: Pain: 06/23 left shoulder Ambar reports [...] of care progressing per her protocol Time in:703 Time out:743 PHASE I: (Weeks 0-1) GOALS: Protect rotator cuff repair Control pain and swelling SLING: Sling immobilization with abduction pillow at all times except for bathing and exercises WEIGHT BEARING: Non-weight bearing EXERCISES: Active range of motion elbow, wrist, and hand Sap Director strengthening Shoulder pendulums PHASE II: (Weeks [...] 60-80?? without rotation NO IR/behind the back Sap Director strengthening NO JASS/Canes until week 6 [...] 10 to 12 months Shawna Yanes PTA ICAL FACULTY documented in this encounter Plan of Treatment Not on file documented as of this encounter Visit Diagnoses Diagnosis S/P arthroscopy of left shoulder- Primary Traumatic incomplete tear of left rotator cuff, initial encounter documented in this encounter Care Teams Death Surveys Coder Relationship Specialty Start Date End Date Judith Walton NP [address] [place] [address] PCP - General 05/26/20 Khushbu Phan PA [address] [facility] [address] [place] [address] Physician Personal Care Home Administrator Orthopedic Surgery 12/12/23 documented as of this encounter
--- OUTSIDE RECORDS SUMMARY | 2024-04-12 13:19 | XMS_ITS | Encounter Summary ---
Author Organization [facility] Address [address] [place] [address] Care Team Providers Care Food Service Substitute Name Role Phone Anton Judith Salgado NP Primary Care Provider [phone] Khushbu Phan Unavailable [phone] Reason for Visit * Reason Comments PT Initial Eval * Consultation (Routine) - Closed Specialty Diagnoses / Procedures Referred By Kody t Referred To Contact Physical Therapy Diagnoses S/P arthroscopy of left shoulder Jayson Grijalva MD [address] [place] [address] [address] [facility] [address] [place] [address] Phone: tel: fax: [address] [phone] Referral ID Status Reason Start Date Expiration Date V isits Requested Visits Authorized [id number] Closed Evaluate and Treat 02/16/2023 04/15/2023 18 13 Encounter Details Date Type Department Care Team (Late st Contact Info) Description 04/03/2023 7:00 AM PARTS CATALOGUER Therapy [facility] [place] [address] Richy Núñez, PT Traumatic incomplete tear of left rotator cuff, initial encounter (Primary Dx); S/P arthroscopy of left shoulder [...] Frequency of Binge Drinking Not on file 0 08/2022 Personal Safety Answer Date Recorded Getting School Help Needed Denies 03/26 Comments No Sex and Gender Information Value Date Recorded Sex Assigned at Not on file Legal Sex Female 11:20 PM CDT Gender Identity Not on file Sexual Orientation Not on file documented as of this encounter Progress Notes * Richy Núñez, PT - 04/03/2023 7:00 AM CST Physical Therapy Evaluation 04/03/2023 Ambar Alatorre 1985 38 y.o. female Jayson Grijalva MD [address] [place] [address] [place] [address] ICD-9-CM ICD-10-CM 1. Traumatic incomplete tear of left rotator cuff, initial encounter 840.4 S46.012A 2. S/P arthroscopy of left shoulder V45.89 Z98.890 Ambulatory referral order to Physical Therapy - PT Initial Eval Subjective: History of Present Illness: Patient has shoulder pain that has been present for approximately 2 months. She had 2 separate incidents of falling and hurting her shoulder. The 1st incident she used herleft arm to stop her fall. The 2nd incident she fell directly on the left shoulder and felt a pop. She utilizes tramadol and ibuprofen for pain control. She reports that she tried PT but it did not help. She had surgery on 03/27/23. She is her now for PT. Current Symptoms: She reports general post surgical pain and pain with movement of the left arm. Pain: Pain location: Left shoulder Current Pain Ratin/10 At worst Pain Ratin/10 At best Pain Ratin/10 Aggravating Factors: when she moves it the wrong way Alleviating Factors: medication, ice, rest Patient Goals: She wants to have a successful rehab and get back to some normal function. Objective Inspection: Dressing in place on left shoulder. Patient reports no signs or symptoms of infection. Shoulder AROM: Left Flexion NT Abduction NT External Rotation NT Internal Rotation NT Shoulder PROM: Left Flexion 70 Abduction 60 External Rotation 25 Internal Rotation NT Upper Extremity Strength: Left Shoulder Flexion NT/5 Shoulder Abduction NT/5 Shoulder Extension NT/5 Shoulder External Rotation NT/5 Shoulder Internal Rotation NT/5 Elbow Flexion NT/5 Elbow Extension NT/5 Palpation: There is general tenderness to palpation of the left shoulder. Treatment Provided: Moist heat to left shoulder. PROM to left shoulder AROM to wrist and elbow extension Ice to left shoulder Patient requires skilled therapy to restore prior level of function utilizing the treatment and modalities described in this plan of Care. Following the evaluation and extensive patient education regarding diagnosis, prognosis, and treatment goals, the patient (parent/guardian, power of buddhist monk tinoco) actively participated in the creation of the current goals and agrees to the current treatment plan. Assessment/Plan Ambar was seen this date for initial evaluation of her left shoulder following surgery on 03/27. She reports general post surgical soreness. She displays decreased range of motion of the left shoulder. She reports tenderness to palpation of the left shoulder. She displays decreased strength of the left shoulder. Impairments: activity tolerance, endurance, muscle length, lacks appropriate home exercise program,flexibility, abnormal gait, abnormal or restricted ROM, decreased mobility, impaired physical strength, pain with function. STG: Patient to be independent with HEP. NEW Patient to decrease pain level to 0-2/10. NEW LTG: Patient to increase range of motion as tolerated. NEW Patient to increase strength as tolerated. NEW Patient to return to prior level of function and self care. NEW Planned modality interventions: cryotherapy, ultrasound, thermotherapy (Hydrocollator packs), interferential current Planned therapy interventions: abdominal trunk stabilization, functional ROM exercises, manual therapy, neuromuscular re-education, spinal/joint mobilization, therapeutic activities, strengthening, joint mobilization, gait training, endurance training, flexibility, home exercise program, soft tissue mobilization, stretching. Assessment Prognosis: good Plan Start time: 708 End time: 757 Therapy options: will be seen for skilled therapy services Frequency: 2 x/week Duration in visits: 12 visits Discussed with: patient JOSE C Lopez PHASE I: (Weeks 0-1) GOALS: Protect rotator cuff repair Control pain and swelling SLING: Sling immobilization with abduction pillow at all times except for bathing and exercises WEIGHT BEARING: Non-weight bearing EXERCISES: Active range of motion elbow, wrist, and hand Kennel Supervisor strengthening Shoulder pendulums PHASE II: (Weeks 1-6) [...] 60-80?? without rotation NO IR/behind the back Kennel Supervisor strengthening NO JASS/Canes until week 6 No [...] is usually at 10 to 12 months S CATALOGUER documented in this encounter Plan of Treatment Not on file documented as of this encounter Visit Diagnoses Diagnosis Traumatic incomplete tear of left rotator cuff, initial encounter- Primary S/P arthroscopy of left shoulder documented in this encounter Orders Outpatient Referral Count Last Ordered Date Fir st Ordered Date AMB REFERRAL ORDER TO PHYSICAL THERAPY 1 documented in this encounter Care Teams Food Service Substitute Relationship Specialty Start Date End Date Judith Watlon NP [address] [place] [address] PCP - General 05/26/20 Khushbu Phan PA [address] [facility] [address] [place] [address] Physician Diesel Engine Assembler Orthopedic Surgery 03/27/23 documented as of this encounter
--- OUTSIDE RECORDS SUMMARY | 2024-04-12 13:19 | XMS_ITS | Encounter Summary ---
Author Organization [facility] Healthcare Address [address] [place] [address] Care Team Providers Care Field Cane Scaler Name Role Phone Walton Judith Salgado NP Primary Care Provider + [phone] Khushbu Phan Unavailable [phone] Reason for Visit * Reason Comments Post-op Encounter Details Date Type Department Care Team (Latest Contact Info) Description 04/10/2023 8:00 AM DYE MIXER Office Visit [facility] Medical Group Orthopedics and Sports Medicine [address] [facility] [address] [place] [phone] Khushbu Phan PA [address] [place] [address] [address] [place], [place] [id number] Aftercare following surgery of the musculoskeletal system (Primary Dx); S/P left rotator cuff repair [...] Sign Reading Time Taken Comments Blood Pressure 103/70 04/10/2023 8:14 AM DYE MIXER Pulse 66 04/10/2023 8:14 AM DYE MIXER Temperature - - Respiratory Rate - - Oxygen Saturation - - Inhaled Oxygen Concentration - - Weight 94.6 kg (208 lb 9.6 oz) 04/10/2023 8:14 A M DYE MIXER Height 160 cm (5' 2.99 ) 04/10/2023 8:14 AM DYE MIXER Body Mass Index 36.96 04/10/2023 8:14 AM DYE MIXER documented in this encounter Ordered Prescriptions Prescription Sig Dispense Quantity Refills Last Filled Start Date End Date traMADoL (ULTRAM) 50 mg tablet Take 1 tablet (50 mg total) by mouth every 6 (six) hours as needed for pain 30 tablet 04/10/2023 06/04/2023 documented in this encounter Progress Notes * Khushbu Phan PA - 04/10/2023 8:00 AM CST Images from the original note were not included. Post-Op Visit Note HPI: Patient is 2 weeks s/p left shoulder arthroscopy with subacromial decompression, distal clavicle excision, biceps tenodesis, full-thickness rotator cuff repair. Pain is well controlled. Patient is currently taking tylenol and seldom Oxycodone prn for pain. They report compliance with sling and HEP/activity recommendations. She has started PT at [facility] and notes are reviewed. Vital signs: height is 160 cm (5' 2.99 ) and weight is 94.6 kg (208 lb 9.6 oz). Her blood pressure is 103/70 andher pulse is 66. Exam: Well approximated healing post operative portal holes. No erythema, draining, or signs of infection present. Neurovascular status is intact. Full AROM of elbow, wrist and hand. PROM: 80 elevation Assessment: Diagnosis Plan 1. Aftercare following surgery of the musculoskeletal system 2. S/P left rotator cuff repair New Medications Ordered This Visit traMADoL (ULTRAM) 50 mg tablet Sig: Take 1 tablet (50 mg total) by mouth every 6 (six) hours as needed for pain Dispense: 30 tablet Refill: 0 Plan: Procedure, medications and post operative expectations reviewed with patient Continue sling Will initiate outpatient PT HEP reviewed as were activity restrictions/recommendations Follow up in 4 weeks time Switched post op pain med to tramadol prn; pt notes that this has been better tolerated than oxycodone, which makes her loopy. Will refill tramadol if needed. Patient demonstrates atrophy and weakness of left shoulder and would benefit from home E stim device. Questions were answered. Patient expressed full understanding and agreement of plan. Khushbu Phan PA-C MIXER documented in this encounter Plan of Treatment Not on file documented as of this encounter Visit Diagnoses Diagnosis Aftercare following surgery of the musculoskeletal system- Primary Aftercare following surgery of the musculoskeletal system, NEC S/P left rotator cuff repair documented in this encounter Discontinued Medications Medication Sig Discontinue Reason Start Date End Da te oxyCODONE-acetaminoph en (PERCOCET) 5-325 mg per tabletIndications:Kole n Take 1 tablet by mouth every 4 (four) hours as needed for pain Alternate therapy 03/27/2023 04/10/2023 senna-docusate (PERICOLACE) 8.6-50 mg Take 1 tablet by mouth 2 (two) times a day as needed for constipation Therapy completed 03/27/2023 04/10/2023 ondansetron (ZOFRAN) 4 mg tabletIndications:Pre vention of Post-Operative Nausea and Vomiting Take 1 tablet (4 mg total) by mouth every 6 (six) hours as needed for nausea or vomiting Therapy completed 03/27/2023 04/10/2023 documented as of this encounter Care Teams Field Cane Scaler Relationship Specialty Start Date End Date Judith Walton NP [address] [place] [address] PCP - General 05/26/20 Khushbu Phan PA [address] [facility] [address] [address] Physician Ward Nurse Orthopedic Surgery 03/27/23 documented as of this encounter
--- OUTSIDE RECORDS SUMMARY | 2024-04-12 13:19 | XMS_ITS | Encounter Summary ---
Author Organization [facility] Healthcare Address [address] [place] [address] Care Team Providers Care Teletype Telegrapher Name Role Phone Anton Judith Salgado NP Primary Care Provider + [phone] Khushbu Phan Unavailable [phone] Reason for Visit * Reason Onset Date Comments Post-Op Call 03/28/2023 Encounter Details Date Type Department Care Team (Late st Contact Info) Description 03/28/2023 Telephone [facility] Medical Group Orthopedic and Sports Medicine [address] [place] [phone] Jose Plata MA Post-Op Call Social History Tobacco Use Types Packs/Day Years [...] encounter Miscellaneous Notes * Telephone Encounter - Jose Plata MA - 03/28/2023 9:58 AM CST Called and spoke to patient who states she is doing well after surgery. Patient has no questions orconcerns at this time and was advised to call if any arise. Post op appointment reviewed with patient. NO INVESTIGATOR documented in this encounter Plan of Treatment Not on file documented as of this encounter Visit Diagnoses Not on filedocumented in this encounter Care Teams Teletype Telegrapher Relationship Specialty Start Date End Date Walton, Judith Salgado NP [address] [place] [address] PCP - General 05/26/20 Khushbu Phan PA [address] [facility] [address], [place] [address] Physician Associate Professor Of Radiology Orthopedic Surgery 03/27/23 documented as of this encounter
--- OUTSIDE RECORDS SUMMARY | 2024-04-12 13:20 | XMS_ITS | Encounter Summary ---
Author Organization [facility] Healthcare Address [address] [place] [address] Care Team Providers Care Modern And Contemporary Art Curator Name Role Phone AntonPareshJudithyifan Salgado NP Primary Care Provider + [phone] Reason for Visit * Reason Onset Date Comments Surgery Clearance 02/16/2023 Encounter Details Date Type Department Care Team (Late st Contact Info) Description 02/16/2023 Telephone [facility] Medical Group Orthopedic and Sports Medicine [address] [place] [phone] Jaycee Cason RMA Surgery Clearance Social History Tobacco Use Types Packs/Day Years Used Date Smoking Tobacco: Former Cigarettes Smokeless Tobacco: Never Comments No Sex and Gender Information Value Date Recorded Sex Assigned at Not on file Legal Sex Female 11:20 PM CDT Gender Identity Not on file Sexual Orientation Not on file documented as of this encounter Miscellaneous Notes * Telephone Encounter - Jaycee Cason MA - 02/16/2023 12:49 PM CDT Procedure: Left Shoulder, Rotator Cuff Repair, Subacromial Decompression, A-C Resection, Biceps Tenodesis DOS: 03/27/23 Surgery Clearance Checklist: [] PCP: N/A [] Cardiology: [] Endocrinology: [] Pulmonology: [] Neurology: [] Other: Blood Thinner: [] Yes Name of medication: [x] No Is patient a Diabetic: [] Yes [x] No Preferred Outpatient Physical Therapy location: [facility] Reviewed with patient surgery clearance requirements that forms must be returned to our office no later than 72 hours prior to surgery. Later than 72 hours may cause patients surgery to be cancelled and/or rescheduled. Reviewed with patient that appointments with the above provider should be scheduled in a timely manner, and recommend appointments be made no later than 3 weeks prior to surgery. Medications to be discontinued prior to surgery were reviewed with patient, and hand out provided listing when to stop prior to surgery. Patient instructed to contact PCP and/or prescribing provider with questions about when to discontinue prior to surgery. For blood thinners, patient was instructed to speak with prescribing provider about when to discontinue and was advised our office needs documentation on when to stop prior to surgery. This can be completed on the form provided for the patient. Reviewed with patient use of surgical soap prior to surgery. Patient was instructed to use the evening before and the morning of surgery. Advised to not wash hair, face, genital, or rectal area. Patient expressed full understanding of the above in preparation for surgery. Patient was advised to contact our office if any questions or concerns arise prior to surgery. MA/ATC Name: SHERRILL Champion documented in this encounter Plan of Treatment Not on file documented as of this encounter Visit Diagnoses Not on filedocumented in this encounter Care Teams Modern And Contemporary Art Curator Relationship Specialty Start Date End Date Anton, Judith Salgado NP [address] [place] [address] PCP - General 05/26/20 documented as of this encounter
--- OUTSIDE RECORDS SUMMARY | 2024-04-12 13:20 | XMS_ITS | Encounter Summary ---
Author Organization [facility] Healthcare Address [address] [place] [address] Care Team Providers Care Apprentice Plant Attendant Name Role Phone AntonJudith Naomi GOMEZ Primary Care Provider [phone] Reason for Referral * Diagnostic Imaging (Routine) - Closed Specialty Diagnoses / Procedures Referred By Contac t Referred To Contact Diagnoses Left shoulder pain, unspecified chronicity Procedures XR Shoulder Left 1 View Jayson Grijalva MD [address] [facility] [address] [place] [address] Phone: tel: fax: [facility] Medical Group Referral ID Status Reason Start Date Expiration Date Visits Re quested Visits Authorized [id number] Closed 02/16/2023 03/17/2024 1 1 Reason for Visit * Reason Comments Follow-up Encounter Details Date Type Department Care Team (Latest Contact Info) Description 02/16/2023 12:00 PM CDT Office Visit [facility] Medical Group Orthopedic and Sports Medicine [address] [place] [phone] Jayson Grijalva MD [address] [facility] [address] [place] [address] Left shoulder pain, unspecified chronicity (Primary Dx); Arthritis of left acromioclavicular joint; Biceps tendinitis of left upper extremity; Impingement syndrome of left shoulder Social History Tobacco Use [...] Sign Reading Time Taken Comments Blood Pressure 113/80 02/16/2023 12:06 PM CDT Pulse 70 02/16/2023 12:06 PM CDT Temperature - - Respiratory Rate - - Oxygen Saturation - - Inhaled Oxygen Concentration - - Weight 93 kg (205 lb) 02/16/2023 12:06 PM CDT Height 160 cm (5' 3 ) 02/16/2023 12:06 PM CDT Body Mass Index 36.31 02/16/2023 12:06 PM CDT documented in this encounter Progress Notes * Jayson Grijalva MD - 02/16/2023 12:00 PM CDT Images from the original note were not included. NEW PATIENT VISIT Subjective CHIEF COMPLAINT She had concerns [...] consultation.Patient is alert and oriented times three. Legal Stenographer completed by using M*Modal Fluency Direct speaking software, therefore, transcriptionvariances may occur. Pain Assessment Pain Assessment: 0-10 Pain Score: 6 PAST MEDCIAL HISTORY She has a past medical history of Anemia, Anxiety, Asthma, Depression, Gastric reflux, Hiatal hernia, Hypercholesteremia, and Migraines. PAST SURGICAL HISTORY She has a past surgical history that includes Other surgical history; Hysterectomy; [place] tooth extraction; Oopherectomy; and Tubal ligation. MEDICATIONS [...] negative Hawkin's test: postive Impingement signs: positive Zachery's: zachery's Neer's: positive Speed's: positive REVIEW OF X-RAYS/STUDIES/LABS XR Shoulder Left 1 View X-ray of the shoulder are viewed and interpreted in clinic today. Axillary view demonstrate no fracture subluxation or dislocation. Assessment/Plan Ambar was seen today for follow-up. [...] consent was established in the office today. WILMAN Norman MD documented in this encounter Plan of Treatment Not on file documented as of this encounter Procedures Procedure Name Priority Date/Time Associated Diagnosis Comments XR SHOULDER LEFT 1 VIEW Schedule Routine, Read Routine (OP Routine) 02/16/2023 11:59 AM CDT Left shoulder pain, unspecified chronicity documented in this encounter Results * XR Shoulder Left 1 View (02/16/2023 11:59 AM CDT) Anatomical Region Laterality Modality Upper Extremities, Shoulder Left Digi mark Radiography Narrative 02/16/2023 12:48 PM CDT X-ray of the shoulder are viewed and interpreted in clinic today. Axillary view demonstrate no fracture subluxation or dislocation. us Jayson Grijalva MD IMG XR PROCEDURES Final Resu lt documented in this encounter Visit Diagnoses Diagnosis Left shoulder pain, unspecified chronicity- Primary Arthritis of left acromioclavicular joint Biceps tendinitis of left upper extremity Impingement syndrome of left shoulder documented in this encounter Discontinued Medications Medication Sig Discontinue Reason Start Date End Da te escitalopram (LEXAPRO) 20 mg tablet Take 1 tablet (20 mg total) by mouth daily 12/10/2022 02/16/2023 documented as of this encounter Historical Medications * This list may reflect changes made after this encounter. escitalopram (LEXAPRO) 5 mg tabletIndications :Anxiety with Depression Take 1 tablet (5 mg total) by mouth nightly 02/12/2023 escitalopram (LEXAPRO) 10 mg tablet Take 1 tablet (10 mg total) by mouth daily 02/12/2023 2023 buPROPion (WELLBUTRIN) 75 mg tablet Take 1 tablet (75 mg total) by mouth every morning 02/12/2023 2023 added in this encounter Care Teams Apprentice Plant Attendant Relationship Specialty Start Date End Date Judith Walton NP [address] [place] [address] PCP - General 05/26/20 documented as of this encounter
--- OUTSIDE RECORDS SUMMARY | 2024-04-12 13:20 | XMS_ITS | Encounter Summary ---
Author Organization [facility] Healthcare Address [address] [place] [address] Care Team Providers Care Cotton Picker Name Role Phone Judith Walton NP Primary Care Provider Encounter Details Date Type Department Care Team (Late st Contact Info) Description 01/19/2023 Plan of Care Documentation [facility] [place] [address] Social History Tobacco Use Types Packs/Day Years [...] on filedocumented in this encounter Care Teams Cotton Picker Relationship Specialty Start Date End Date Judith Walton NP [address] [place] [address] PCP - General 05/26/20 documented as of this encounter
--- OUTSIDE RECORDS SUMMARY | 2024-04-12 13:20 | XMS_ITS | Encounter Summary ---
Author Organization [facility] Healthcare Address [address] [place] [address] Care Team Providers Care Geometry Professor Name Role Phone AntonPareshJudithyifan Salgado NP Primary Care Provider [phone] Reason for Visit * Diagnostic Imaging (Routine) - Closed Specialty Diagnoses / Procedures Referred By Kody t Referred To Contact Diagnoses Left shoulder pain, unspecified chronicity Procedures XR Shoulder Left 1 View Jayson Grijalva MD [address] [place] [address] [address] Phone: tel: fax: [facility] Medical Group Referral ID Status Reason Start Date Expiration Date Visits Re quested Visits Authorized [id number] Closed 02/16/2023 03/17/2024 1 1 Encounter Details Date Type Department Care Team ([facility] st Contact Info) Description 02/16/2023 12:00 PM CDT Ancillary Procedure [facility] Medical Group Imaging at [address] [phone] Social History Tobacco Use Types Packs/Day Years [...] view demonstrate no fracture subluxation or dislocation. Jayson Grijalva MD IMG XR PROCEDURES Final Resu lt documented in this encounter Visit Diagnoses Not on filedocumented in this encounter Care Teams Geometry Professor Relationship Specialty Start Date End Date Anton, Judith Salgado NP [address] [place] [address] PCP - General 05/26/20 documented as of this encounter
--- OUTSIDE RECORDS SUMMARY | 2024-04-12 13:20 | XMS_ITS | Encounter Summary ---
Author Organization [facility] Healthcare Address [address] [place] [address] Care Team Providers Care Assistant Professor Of Surgery Name Role Phone Judith Walton NP Primary Care Provider [phone] Reason for Visit * Reason Comments Follow-up Encounter Details Date Type Department Care Team (Latest Contact Info) Description 02/14/2023 11:45 AM CDT Office Visit [facility] Medical Group Orthopedic and Sports Medicine [address] [place] [phone] Misbah Gann PA [address] [place] [address] [address] [place] [address] Traumatic incomplete tear of left rotator cuff, initial encounter (Primary Dx); Arthritis of left acromioclavicular joint; [...] Sign Reading Time Taken Comments Blood Pressure 121/84 02/14/2023 11:43 AM CDT Pulse 68 02/14/2023 11:43 AM CDT Temperature - - Respiratory Rate - - Oxygen Saturation - - Inhaled Oxygen Concentration - - Weight 93.6 kg (206 lb 4.8 oz) 02/14/2023 11:43 AM CDT Height 160 cm (5' 3 ) 02/14/2023 11:43 AM CDT Body Mass Index 36.54 02/14/2023 11:43 AM CDT documented in this encounter Progress Notes * Misbah Gann PA - 02/14/2023 11:45 AM CDT Images from the original note were not included. FOLLOW UP VISIT Subjective CHIEF COMPLAINT She had concerns including Follow-up of the Left Shoulder. HISTORY OF PRESENT ILLNESS Patient follows up for her left shoulder. She has been utilizing meloxicam and Tylenol for pain. She states that this is not helping her pain very much. She has been attending physical therapy, she does not feel physical therapy has improved her pain, she does thinks therapy has helped her with herfunction slightly. Pain Assessment Pain Assessment: 0-10 Pain Score: 6 Pain Location: Shoulder Pain Orientation: Left Pain Descriptors: Aching MEDICATIONS She has a current medication list which includes the following prescription(s): albuterol hfa, atorvastatin, cetirizine, escitalopram, estradiol, lamotrigine, meloxicam, montelukast, trazodone, clonazepam, fluticasone propionate, ibuprofen, omeprazole, and tramadol. REVIEW OF SYSTEMS Review of Systems Constitutional: Negative for chills, fatigue and fever. HENT: Negative for sore throat. Respiratory: Negative for cough and shortness of breath. Cardiovascular: Negative for chest pain. Gastrointestinal: Negative for constipation, nausea and vomiting. Musculoskeletal: Positive for arthralgias. Neurological: Positive for headaches. Negative for dizziness and light-headedness. Objective PHYSICAL EXAM BP 121/84 Pulse 68 Ht 160 cm (5' 3 ) Wt 93.6 kg (206 lb 4.8 oz) BMI 36.54 kg/m?? Right shoulder The patient has normal inspection, palpation, range of motion, strength, and stability of the rightshoulder. Left shoulder Inspection The patient has normal [...] positive Drop arm: negative Hawkin's test: postive Percy's: percy's Neer's: positive Speed's: positive REVIEW OF X-RAYS/STUDIES/LABS Assessment/Plan Ambar was seen today for follow-up. Diagnoses and all orders for this visit: Traumatic incomplete tear of left rotator cuff, initial encounter Arthritis of left acromioclavicular joint Biceps tendinitis of left upper extremity Procedures PLAN We discussed her treatment options today. Patient at this time feels she is exhausted all of her conservative options. She does not feel that it injection will be beneficial for her at this time andshe does not want to delay any potential surgery any longer than necessary. Her goal would be to have surgery by the end of this year. She will follow up with Dr. Grijalva at the end of this week to discuss shoulder arthroscopy. Her ultrasound report is scanned into the referral information. All questions were addressed today and the patient was instructed to call the office with any questions or concerns. There may be grammatical errors in this note due to use of voice recognition software. ANTHONY Fulton documented in this encounter Plan of Treatment Not on file documented as of this encounter Visit Diagnoses Diagnosis Traumatic incomplete tear of left rotator cuff, initial encounter- Primary Arthritis of left acromioclavicular joint Biceps tendinitis of left upper extremity documented in this encounter Care Teams Assistant Professor Of Surgery Relationship Specialty Start Date End Date Anton, Judith Salgado NP [address] [place] [address] PCP - General 05/26/20 documented as of this encounter
--- OUTSIDE RECORDS SUMMARY | 2024-04-12 13:20 | XMS_ITS | Encounter Summary ---
Author Organization [facility] Address [address] [place] [address] Care Team Providers Care Tread Booker Name Role Phone Judith Walton NP Primary Care Provider [phone] Reason for Visit * Reason Comments PT Treatment * Consultation (Routine) - Closed Specialty Diagnoses / Procedures Referred By Kody wall Referred To Contact Physical Therapy Diagnoses Traumatic incomplete tear of left rotator cuff, initial encounter Arthritis of left acromioclavicular joint Biceps tendinitis of left upper extremity Misbah Gann PA [address] [place] [address] [address] GARC[address] [place] [address] Phone: tel: fax: [address] [phone] Referral ID Status Reason Start Date Expiration Date V isits Requested Visits Authorized [id number] Closed Evaluate and Treat 01/22/2023 01/22/2024 24 14 Encounter Details Date Type Department Care Team (Late st Contact Info) Description 02/13/2023 6:15 PM CDT Therapy [facility] [place] [address] Richy Núñez, PT Traumatic incomplete tear of [...] Progress Notes * Richy Núñez, PT - 02/13/2023 6:15 PM CDT Physical Therapy Visit 02/13/2023 Ambar Alatorre 1985 ICD-9-CM ICD-10-CM 1. Traumatic incomplete tear of left rotator cuff, initial encounter 840.4 S46.012A 2. Arthritis of left acromioclavicular joint 716.91 M19.012 3. Biceps tendinitis of left upper extremity 726.12 M75.22 Subjective: Pain: 07/24 left shoulder Ambar reports she feels her pain is slowly decreasing. However she reports that the overall function of her shoulder remains limited. Objective: See treatment provided Her strength and range of motion remain limited. Treatment Provided: Moist heat to left shoulder PROM to left shoulder ABC Scapular stabilization--punches and ABC Wall slides flexion x 15 Pulleys flexion and abduction Shoulder rows and extension with red theraband IR and ER with yellow theraband Ice after treatment Access Code: [email or web address] URL: [email or web address] Date: 01/19/2023 Prepared by: Richy Núñez Exercises - Supine Shoulder Press with Dowel - 2 x daily - 7 x weekly - 1 sets - 15 reps - Supine Shoulder Flexion with Dowel - 2 x daily - 7 x weekly - 1 sets - 15 reps - Standing Shoulder Row with Anchored Resistance - 2 x daily - 7 x weekly - 1 sets - 15 reps - Shoulder extension with resistance - Neutral - 2 x daily - 7 x weekly - 1 sets - 15 reps Assessment: Ambar is receptive to the current treatment program She is taking an active role in her HEP There has been no real change in her overall objective status. Plan: Continue with current treatment program progressing as tolerated Time in:1814 Time out: 1848 Richy Núñez PT documented in this encounter Plan of Treatment Not on file documented as of this encounter Visit Diagnoses Diagnosis Traumatic incomplete tear of left rotator cuff, initial encounter- Primary Arthritis of left acromioclavicular joint Biceps tendinitis of left upper extremity documented in this encounter Care Teams Tread Booker Relationship Specialty Start Date End Date Anton, Judith Salgado NP [address] [place] [address] PCP - General 05/26/20 documented as of this encounter
--- OUTSIDE RECORDS SUMMARY | 2024-04-12 13:20 | XMS_ITS | Encounter Summary ---
Author Organization [facility] Address [address] [place] [address] Care Team Providers Care Inspector Final Assembly Mechanical Name Role Phone Judith Walton NP Primary Care Provider [phone] Reason for Visit * Reason Comments PT Treatment * Consultation (Routine) - Closed Specialty Diagnoses / Procedures Referred By Kody wall Referred To Contact Physical Therapy Diagnoses Traumatic incomplete tear of left rotator cuff, initial encounter Arthritis of left acromioclavicular joint Biceps tendinitis of left upper extremity Misbah Gann PA [address] [place] [address] [address] GARCIA [address] [place] [address] Phone: tel: fax: [address] [phone] Referral ID Status Reason Start Date Expiration Date V isits Requested Visits Authorized [id number] Closed Evaluate and Treat 01/22/2023 01/22/2024 24 14 Encounter Details Date Type Department Care Team (Late st Contact Info) Description 01/30/2023 7:00 AM CDT Therapy [facility] [place] [address] Shawna Yanes, SHAKA Traumatic incomplete tear of left rotator cuff, [...] of this encounter Progress Notes * Shawna Yanes PTA - 01/30/2023 7:00 AM CDT Physical Therapy Visit 01/30/2023 Ambar Alatorre 1985 ICD-9-CM ICD-10-CM 1. Traumatic incomplete tear of left rotator cuff, initial encounter 840.4 S46.012A 2. Arthritis of left acromioclavicular joint 716.91 M19.012 3. Biceps tendinitis of left upper extremity 726.12 M75.22 Subjective: Pain: 07/24 left shoulder Ambar reports she continues to experience persistent discomfort throughout her left shoulder She states she is trying to use it as much as possible Objective: See treatment provided Treatment Provided: Moist heat to left shoulder PROM to left shoulder ABC Scapular stabilization--punches and ABC Wall slides flexion x 15 Pulleys flexion and abduction Shoulder rows and extension with red theraband IR and ER with yellow theraband Access Code: [email or web address] URL: [email or web address] Date: 01/19/2023 Prepared by: Richy Núñez Exercises [...] taking an active role in her HEP Plan: Continue with current treatment program progressing as tolerated Time in:0648 Time out: 07 Shawna Yanes PTA documented in this encounter Plan of Treatment Not on file documented as of this encounter Visit Diagnoses Diagnosis Traumatic incomplete tear of left rotator cuff, initial encounter- Primary Arthritis of left acromioclavicular joint Biceps tendinitis of left upper extremity documented in this encounter Care Teams Inspector Final Assembly Mechanical Relationship Specialty Start Date End Date Judith Walton NP [address] [place] [address] PCP - General 05/26/20 documented as of this encounter
--- OUTSIDE RECORDS SUMMARY | 2024-04-12 13:20 | XMS_ITS | Encounter Summary ---
Author Organization [facility] Address [address] [place] [address] Care Team Providers Care Personal Lines Advisor Name Role Phone Judith Walton NP Primary Care Provider Reason for Visit * Reason Comments Sore Throat Patient presents tod ay with complaints of a sore throat. SX onset 03/01. Earache Patient presents tod ay with complaints of bilateral ear pain. R ear worse. SX onset 02/24. Encounter Details Date Type Department Care Team (Late st Contact Info) Description 03/01/2023 5:45 PM BRAIN WAVE TECHNICIAN Office Visit [facility] [address] [place] [address] Agnie Haas, BOILER TUBE BLOWER [facility] [facility] [place] [address] Sore throat (Primary Dx); Non-recurrent acute serous otitis media of right ear Social History Tobacco Use Types Packs/Day Years [...] Sign Reading Time Taken Comments Blood Pressure 114/66 03/01/2023 6:18 PM BRAIN WAVE TECHNICIAN Pulse 88 03/01/2023 6:18 PM BRAIN WAVE TECHNICIAN Temperature 36.7 ??C (98 ??F) 03/01/2023 6:18 PM BRAIN WAVE TECHNICIAN Respiratory Rate 20 03/01/2023 6:18 PM BRAIN WAVE TECHNICIAN Oxygen Saturation 97% 03/01/2023 6:18 PM BRAIN WAVE TECHNICIAN Inhaled Oxygen Concentration - - Weight 93.9 kg (207 lb) 03/01/2023 6:18 PM BRAIN WAVE TECHNICIAN Height 160 cm (5' 3 ) 03/01/2023 6:18 PM BRAIN WAVE TECHNICIAN Body Mass Index 36.67 03/01/2023 6:18 PM BRAIN WAVE TECHNICIAN documented in this encounter Patient Instructions * Patient Instructions* Angie Haas NP - 03/01/2023 5:45 PM BRAIN WAVE TECHNICIAN Thank you for allowing me to take care of you today. Diagnosis Ear Infection. Test: Rapid Strep test negative. Prescribed Augmentin. Home care includes rest, hydration, over the counter medications, warm compress to ear for pain, elevate head at night. Follow up with your primary provider in 2-3 days as needed. Red flags include worsening symptoms including pain, swelling, headache, dizziness, congestion, fever, shortness of breath, chest pain, nausea/vomiting, abdomen pain, back pain, muscle pain, decreased range of motion, numbness/tingling, weakness, fatigue. Follow up with your primary provider, this clinic, or if severe go to ER. N WAVE TECHNICIAN * Attachments The following attachments cannot be sent through Care Everywhere. * Ear Infection (AfterCare(R) Instructions(ER/ED)) (Ecuadorean) documented in this encounter Ordered Prescriptions Prescription Sig Dispense Quantity Refills Last Filled Start Date End Date amoxicillin-clavul anate (Augmentin) 875-125 mg per tabletIndications: Non-recurrent acute serous otitis media of right ear Take 1 tablet by mouth 2 (two) times a day for 7 days 14 tablet 03/01/2023 03/08/2023 documented in this encounter Progress Notes * Angie Haas NP - 03/01/2023 5:45 PM CST Images from the original note were not included. Subjective/Objective Patient ID: Ambar Alatorre is a 37 y.o. female. Chief Complaint Sore Throat (Patient presents today with complaints of a sore throat. SX onset 03/01.) and Earache (Patient presents today with complaints of bilateral ear pain. R ear worse. SX onset 02/24.) Patient is a 37-year-old female presents to [facility] with a chief complaint of right ear pain starting on Sunday. Patient reports she noticed that her throat was hurting this afternoon. Denies any other symptoms. Has had a history of both ear infection and strep throat. Reports she did tryTylenol and Advil with little relief. Review of Systems HENT: Positive for ear pain and sore throat. Physical Exam Vitals reviewed. Constitutional: General: She is not in acute distress. Appearance: She is well-developed and normal weight. She is not ill-appearing, toxic-appearing or diaphoretic. HENT: Head: Normocephalic and atraumatic. Right Ear: Ear canal normal. Tenderness present. No drainage or swelling. A middle ear effusion is present. Tympanic membrane is erythematous. Left Ear: Ear canal normal. No drainage, swelling or tenderness. A middle ear effusion is present. Tympanic membrane is not erythematous. Nose: No congestion or rhinorrhea. Mouth/Throat: Mouth: Mucous membranes are moist. No oral lesions. Pharynx: Oropharynx is clear. Posterior oropharyngeal erythema present. No pharyngeal swelling, oropharyngeal exudate or uvula swelling. Tonsils: No tonsillar exudate or tonsillar abscesses. Eyes: Conjunctiva/sclera: Conjunctivae normal. Pupils: Pupils are equal, round, and reactive to light. Neck: Thyroid: No thyromegaly. Pulmonary: Effort: Pulmonary effort is normal. No respiratory distress. Breath sounds: Normal breath sounds. No stridor. No wheezing, rhonchi or rales. Chest: Chest wall: No tenderness. Abdominal: General: There is no distension. Musculoskeletal: Cervical back: Normal range of motion and neck supple. Lymphadenopathy: Cervical: Cervical adenopathy present. Skin: General: Skin is warm and dry. Neurological: General: No focal deficit present. Mental Status: She is alert. Psychiatric: Mood and Affect: Mood normal. Behavior: Behavior normal. Vitals: 03/01/23 1818 BP: 114/66 BP Location: Left arm Patient Position: Sitting Pulse: 88 Resp: 20 Temp: 36.7 ??C (98 ??F) TempSrc: Temporal SpO2: 97% Weight: 93.9 kg (207 lb) Height: 160 cm (5' 3 ) Assessment/Plan Diagnoses and all orders for this visit: Sore throat (Primary) - POCT rapid strep A Recent Results (from the past 4 hour(s)) POCT rapid strep A Collection Time: 03/01/23 6:30 PM Result Value Ref Range Rapid Strep A, POC Negative Negative Diagnosis right OM. Test: Rapid Strep test negative. Prescribed Augmentin. Home care includes rest, hydration, over the counter medications, warm compress to ear for pain, elevate head at night. Follow up with your primary provider in 2-3 days as needed. Red flags include worsening symptoms including pain, swelling, headache, dizziness, congestion, fever, shortness of breath, chest pain, nausea/vomiting, abdomen pain, back pain, muscle pain, decreased range of motion, numbness/tingling, weakness, fatigue. Follow up with your primary provider, this clinic, or if severe go to ER. Disposition- Patient presents with right ear pain, sore throat. Patient is nontoxic-appearing and in no acute distress. Vitals signs are stable. Discussed point of care test results with patient, lab test, X-raysthat may have been completed or ordered during clinic visit. Treatments completed while in [facility] include rapid strep test. Given the history and physical exam findings, presentation/diagnos is of right OM. The Differential diagnosis includes 0 8, cerumen impaction, strep pharyngitis, URI.However, these differential diagnosis are less likely given the data, history and physical exam. Supportive care was discussed including rest, hydration, [id number]-[id number] meds to help with symptoms. A ugmentin was prescribed. Discussed medications dosages, usage & potential side effects. Advisedclose follow up and return criteria/red flags were discussed. Risks and interactions reviewed with patient. Patient has been instructed to follow up w PCP or go to ER for any signs or symptoms that are of concern or worsening. Understanding of discharge instructions verbalized, and agrees with planof care. The patient was given the opportunity to ask all questions and to have all questions answered. Angie Haas NP N WAVE TECHNICIAN documented in this encounter Plan of Treatment Not on file documented as of this encounter Procedures Procedure Name Priority Date/Time Associated Diagnosis Comments POCT RAPID STREP Routine 03/01/2023 6:30 PM BRAIN WAVE TECHNICIAN Sore throat documented in this encounter Results * POCT rapid strep A (03/01/2023 6:30 PM BRAIN WAVE TECHNICIAN) Rapid Strep A, POC Negative Negative Swab 03/01/2023 6:30 PM BRAIN WAVE TECHNICIAN Angie Haas BOILER TUBE BLOWER POINT OF CARE TEST ORDERAB LES Final Result documented in this encounter Visit Diagnoses Diagnosis Sore throat- Primary Acute pharyngitis Non-recurrent acute serous otitis media of right ear documented in this encounter Care Teams Personal Lines Advisor Relationship Specialty Start Date End Date Judith Walton NP [address] [place] [address] PCP - General 05/26/20 documented as of this encounter
--- OUTSIDE RECORDS SUMMARY | 2024-04-12 13:20 | XMS_ITS | Encounter Summary ---
Author Organization [facility] Address [address] [place] [address] Care Team Providers Care Public Improvement Inspector Name Role Phone Judith Walton NP Primary Care Provider [phone] Reason for Visit * Reason Comments PT Treatment * Consultation (Routine) - Closed Specialty Diagnoses / Procedures Referred By Kody wall Referred To Contact Physical Therapy Diagnoses Traumatic incomplete tear of left rotator cuff, initial encounter Arthritis of left acromioclavicular joint Biceps tendinitis of left upper extremity Misbah Gann PA [address] [place] [address] [address] GARCIA [address] [place] [address] Phone: tel: fax: [address] [phone] Referral ID Status Reason Start Date Expiration Date V isits Requested Visits Authorized [id number] Closed Evaluate and Treat 01/22/2023 01/22/2024 24 14 Encounter Details Date Type Department Care Team (Late st Contact Info) Description 02/06/2023 7:00 AM CDT Therapy [facility] [place] [address] Shawna Yanes, SHAKA Traumatic incomplete tear of [...] Progress Notes * Shawna Yanes PTA - 02/06/2023 7:00 AM CDT Physical Therapy Visit 02/06/2023 Ambar Alatorre 1985 ICD-9-CM ICD-10-CM 1. Traumatic incomplete tear of left rotator cuff, initial encounter 840.4 S46.012A 2. Arthritis of left acromioclavicular joint 716.91 M19.012 3. Biceps tendinitis of left upper extremity 726.12 M75.22 Subjective: Pain: 07/24 left shoulder Ambar reports she feels her pain is slowly decreasing Objective: See treatment provided Treatment Provided: Moist heat to left shoulder PROM to left shoulder ABC Scapular stabilization--punches and ABC Wall slides flexion x 15 Pulleys flexion and abduction Shoulder rows and extension with red theraband IR and ER with yellow theraband Ice after treatment Access Code: [email or web address] URL: [email or web address] Date: 01/19/2023 Prepared by: Richy Núñez Exercises [...] current treatment program progressing as tolerated Time in:642 Time out: 727 Shawna Yanes PTA documented in this encounter Plan of Treatment Not on file documented as of this encounter Visit Diagnoses Diagnosis Traumatic incomplete tear of left rotator cuff, initial encounter- Primary Arthritis of left acromioclavicular joint Biceps tendinitis of left upper extremity documented in this encounter Care Teams Public Improvement Inspector Relationship Specialty Start Date End Date Judith Walton NP [address] [place] [address] PCP - General 05/26/20 documented as of this encounter
--- OUTSIDE RECORDS SUMMARY | 2024-04-12 13:20 | XMS_ITS | Encounter Summary ---
Author Organization [facility] Address [address] [place] [address] Care Team Providers Care Device Processing Engineer Name Role Phone Judith Walton NP Primary Care Provider [phone] Khushbu Phan Unavailable [phone] Reason for Visit * Auth/Cert (Routine) Specialty Diagnoses / Procedures Referred By Kody t Referred To Contact Diagnoses Impingement syndrome of left shoulder Arthritis of left acromioclavicular joint Biceps tendinitis on left Impingement syndrome of left shoulder [M75.42] Arthritis of left acromioclavicular joint [M19.012] Biceps tendinitis on left [M75.22] Procedures AL SURGICAL ARTHROSCOPY SHOULDER DSTL CLAVICULC AL SURGICAL ARTHROSCOPY BARRETT W/CORACOACRM LIGM RLS AL SURGICAL ARTHROSCOPY SHOULDER W/ROTATOR CUFF RPR AL TENODESIS LONG TENDON BICEPS Left shoulder arthroscopy, [...] Expiration Date Visits Re quested Visits Authorized [id number] 1 1 Encounter Details Date Type Department Care Team (Latest Contact Info) Description 03/27/2023 7:47 AM APPLICATION ADMINISTRATOR - 03/27/2023 2:55 PM APPLICATION ADMINISTRATOR Hospital Encounter [facility] Operating Room [address] [place] [address] Jayson Grijalva MD [address] [place] [address] Arthritis of left acromioclavicular joint (Primary Dx); Biceps tendinitis on left; Impingement syndrome of left shoulder; Complete tear of left rotator cuff, unspecified whether traumatic; Complete tear of left rotator cuff, unspecified whether traumatic; Complete tear of left rotator cuff, unspecified whether traumatic; Complete tear of left rotator cuff, unspecified whether traumatic; Complete tear of left rotator cuff, unspecified whether traumatic Discharge Disposition: Discharge to home or self [...] Sign Reading Time Taken Comments Blood Pressure 105/64 03/27/2023 2:44 PM APPLICATION ADMINISTRATOR Pulse 61 03/27/2023 2:44 PM APPLICATION ADMINISTRATOR Temperature 36.4 ??C (97.5 ??F) 03/27/2023 2:44 PM CS T Respiratory Rate 18 03/27/2023 2:44 PM APPLICATION ADMINISTRATOR Oxygen Saturation 98% 03/27/2023 2:44 PM APPLICATION ADMINISTRATOR Inhaled Oxygen Concentration - - Weight 94.5 kg (208 lb 5.4 oz) 03/27/2023 8:03 A M APPLICATION ADMINISTRATOR Height 160 cm (5' 3 ) 03/27/2023 8:03 AM APPLICATION ADMINISTRATOR Body Mass Index 36.9 03/27/2023 8:03 AM APPLICATION ADMINISTRATOR documented in this encounter Discharge Instructions * Attachments The following attachments cannot be sent through Care Everywhere. * General Anesthesia (Discharge Care) (Iranian) * Ondansetron (By mouth, Into the mouth) (Iranian) * Oxycodone/Acetaminophen (By mouth) (Iranian) * Senna (By mouth) (Iranian) documented in this encounter Medications at Time [...] (subpec) Arthrex, rotation medical implant on hold ICATION ADMINISTRATOR Source Note - Misbah Gann PA - 03/26/2023 11:30 AM APPLICATION ADMINISTRATOR Images from the original note were not [...] consultation.Patient is alert and oriented times three. Septic Tank Cleaner completed by using M*Modal Fluency Direct speaking software, therefore, transcriptionvariances may occur. Pain Assessment Pain Assessment: 0-10 Pain Score: 6 PAST MEDCIAL HISTORY She has a past medical history of Anemia, Anxiety, Asthma, Depression, Gastric reflux, Hiatal hernia, Hypercholesteremia, and Migraines. PAST SURGICAL HISTORY She has a past surgical history that includes Other surgical history; Hysterectomy; [place] tooth extraction; Oopherectomy; and Tubal ligation. MEDICATIONS [...] consultation.Patient is alert and oriented times three. Septic Tank Cleaner completed by using M*Modal Fluency Direct speaking software, therefore, transcriptionvariances may occur. Pain Assessment Pain Assessment: 0-10 Pain Score: 6 PAST MEDCIAL HISTORY She has a past medical history of Anemia, Anxiety, Asthma, Depression, Gastric reflux, Hiatal hernia, Hypercholesteremia, and Migraines. PAST SURGICAL HISTORY She has a past surgical history that includes Other surgical history; Hysterectomy; [place] tooth extraction; Oopherectomy; and Tubal ligation. MEDICATIONS [...] Jayson Grijalva MD at 03/27/2023 9:09 AM APPLICATION ADMINISTRATOR ICATION ADMINISTRATOR ICATION ADMINISTRATOR * Misbah Gann PA - 03/26/2023 11:30 [...] consultation.Patient is alert and oriented times three. Septic Tank Cleaner completed by using M*Modal Fluency Direct speaking software, therefore, transcriptionvariances may occur. Pain Assessment Pain Assessment: 0-10 Pain Score: 6 PAST MEDCIAL HISTORY She has a past medical history of Anemia, Anxiety, Asthma, Depression, Gastric reflux, Hiatal hernia, Hypercholesteremia, and Migraines. PAST SURGICAL HISTORY She has a past surgical history that includes Other surgical history; Hysterectomy; [place] tooth extraction; Oopherectomy; and Tubal ligation. MEDICATIONS [...] consultation.Patient is alert and oriented times three. Septic Tank Cleaner completed by using M*Modal Fluency Direct speaking software, therefore, transcriptionvariances may occur. Pain Assessment Pain Assessment: 0-10 Pain Score: 6 PAST MEDCIAL HISTORY She has a past medical history of Anemia, Anxiety, Asthma, Depression, Gastric reflux, Hiatal hernia, Hypercholesteremia, and Migraines. PAST SURGICAL HISTORY She has a past surgical history that includes Other surgical history; Hysterectomy; [place] tooth extraction; Oopherectomy; and Tubal ligation. MEDICATIONS [...] Jayson Grijalva MD at 03/27/2023 9:09 AM APPLICATION ADMINISTRATOR ICATION ADMINISTRATOR ICATION ADMINISTRATOR documented in this encounter Miscellaneous Notes * Op Note - Jayson Grijalva MD - 03/27/2023 10:15 AM CST Images from the original note were not included. Operative Report SURGEON: Jayson Grijalva MD Technical Support Coordinator: Solange Brown RN; Stephie Clarke RN Physician Knapsack Sprayer: Misbah Gann PA; Cristal Copeland PA Scrub [...] Implant Name Type Inv. Item Serial No. Coding Advisor Lot No. LRB No. Used Action [employer] System Biceps [place] Slotted Drill Guide 1.9mm Drill Fibertak AR- 3670 - [id number] [employer] System Biceps [place] Slotted Drill Guide 1.9mm Drill Fibertak AR-3670 [employer] [id number] Left 1 Implanted [employer] Arthrex Fibertak Tape 3 Load Rotator Cuff [place] Suture Sterile Latex Free AR-3633 - [id number] [employer] Arthrex Fibertak Tape 3 Load Rotator Cuff [place] Suture Sterile Latex Free AR-3633 [employer] [id number] Left 1 Implanted [employer] Swivelock C 4.75mm 19.1mm Closed Eyelet Vent [place] Suture AR- 2324BCC - [id number] [employer] Swivelock C 4.75mm 19.1mm Closed Eyelet Vent [place] Suture AR-[id number] [employer] [id number] Left 1 Implanted Estimated Blood Loss: 20 [...] Grijalva MD Date: 03/27/2023 Time: 12:37 PM Septic Tank Cleaner completed by using [employer]Staples Direct speaking software, therefore, transcriptionvariances may occur. ICATION ADMINISTRATOR * Pre-Procedure Instructions - Yaneth Ang RN - 2023 1:49 PM APPLICATION ADMINISTRATOR We are pleased that you and your doctor have chosen [facility] for your surgery. We hope that the [...] prior to surgery Use no make-up, nail czech, lotions, oils or powders on your skin. [...] down the james until you see the [employer], there will be elevators to the [...] posted at the top of the page. ICATION ADMINISTRATOR documented in this encounter Plan of Treatment Not on file documented as of this encounter Procedures Procedure Name Priority Date/Time Associated Diagnosis Comments ARTHROSCOPY SHOULDER 03/27/2023 10:08 AM APPLICATION ADMINISTRATOR Impingement syndrome of left shoulder Arthritis of [...] of left shoulder Biceps tendinitis on left Complete tear of left rotator cuff documented in this encounter Admitting Diagnoses Diagnosis [...] 0830, For 1 dose, Pre-Op, Indications: Pre-Emptive AnalgesiaIndications:Pre-Emptiv e Analgesia Given 03/27/2023 8:17 AM APPLICATION ADMINISTRATOR 1,000 mg benzoyl peroxide 5 % external liquid topical, Once, On Sun03/27/23 at 0830, For 1 dose, Pre-Op, Apply to affected area: shoulder, Laterality: Left, Indications: Acne VulgarisIndications:Acne Vulgaris Given 03/27/2023 8:17 AM APPLICATION ADMINISTRATOR BUPivacaine (PF) 0.125% (MARCAINE) in On-Q reservoir [...] Site: Interscalene, Catheter Side: Left, Indications: Postoperative PainIndications:Postoperative Pain New Bag 03/27/2023 1:04 PM APPLICATION ADMINISTRATOR 6 mL/hr 6 mL/hr clindamycin (CLEOCIN) 900 mg/50 mL in dextrose 5% (premix) 900 mg 900 mg, intravenous, Once, On Sun03/27/23 at 0830, For 1 dose, Pre-Op, Indications: Prophylaxis, SurgicalIndications:Prophylaxis , Surgical New Bag 03/27/2023 8:17 AM APPLICATION ADMINISTRATOR 900 mg HYDROmorphone (PF) (DILAUDID) injection 0.2 mg 0.2 [...] more., Indications: PainIndications:Pain Given 03/27/2023 1:00 PM APPLICATION ADMINISTRATOR 0.2 mg Lactated Ringer's (LR) infusion 30 mL/hr, intravenous, Continuous, Starting on Sun03/27/23 at 0830, Pre-Op New Bag 03/27/2023 12:16 PM APPLICATION ADMINISTRATOR Restarted 03/27/2023 11:42 AM APPLICATION ADMINISTRATOR Rate/Dose Change 03/27/2023 10:44 AM APPLICATION ADMINISTRATOR 30 mL/ hr oxyCODONE-acetaminophen (PERCOCET) 5-325 mg per tablet 1 tablet 1 tablet, oral, Once, On Sun03/27/23 at 1430, For 1 dose, Indications: PainIndications:Pain Given 03/27/2023 2:07 PM APPLICATION ADMINISTRATOR 1 tablet prochlorperazine (COMPAZINE) injection 5 mg 5 mg, intravenous, Administer over 2 Minutes, Once as needed, nausea, vomiting, Starting on Sun03/27/23 at 1259, For 1 dose, Phase I Given 03/27/2023 1:03 PM APPLICATION ADMINISTRATOR 5 mg scopolamine patch 72 hour 1 patch 1 patch, transdermal, Administer over 72 Hours, Once, On Sun03/27/23 at 0900, For 1 dose, Pre-Op Medication Applied 03/27/2023 8:26 AM APPLICATION ADMINISTRATOR 1 patch Behind Right Ear documented in [...] Recently Administered Medications Times are shown in APPLICATION ADMINISTRATOR. Scheduled Medication Order 03/25/2023 03/26/2023 03/27/2023 acetaminophen (TYLENOL) tablet 1,000 mg (COMPLETED) 1,000 mg, oral, Once, On Sun03/27/23 at 0830, For 1 dose, Pre-Op, Indications: Pre-Emptive Analgesia 0817 (Given - Provid er: Jayna Cat RN) benzoyl peroxide 5 % external liquid (COMPLETED) topical, Once, On Sun03/27/23 at 0830, For 1 dose, Pre-Op, Apply to affected area: shoulder, Laterality: Left, Indications: Acne Vulgaris 0817 (Given - Provid er: Jayna Cat RN) ceFAZolin (ANCEF) 2,000 mg/20 mL in sterile [...] 1117, Intra-Op, Indications: Administration of Local Anesthesia 111 (Given - Provid er: Jayson Grijalva MD) [...] sterile water (premix) 2,000 mg 1 03/27/2023 EPINEPHrine 3 mg in Lactated Ringer's (LR) 3,000 mL irrigation solution 2 03/27/2023 fentaNYL (SUBLIMAZE) 50 mcg/ mL preservative free injection - ADS Override Pull 1 03/27/2023 HYDROmorphone (PF) (DILAUDID ) injection 0.4 mg 1 03/27/2023 Lactated Ringer's (LR) irrigation 1 023 lidocaine EPINEPHrine (XYLOC YELITZA with EPI) 0.5 %-1:200,000 injection 1 03/27/2023 midazolam (VERSED) 2 mg/2 mL [...] 03/27/2023 documented in this encounter Care Teams Device Processing Engineer Relationship Specialty Start Date End Date Judith Walton NP [address] [place] [address] PCP - General 05/26/20 Khushbu Phan PA [address], [place] [address] Physician Knapsack Sprayer Orthopedic Surgery 03/27/23 documented as of this encounter
--- OUTSIDE RECORDS SUMMARY | 2024-04-12 13:20 | XMS_ITS | Encounter Summary ---
Author Organization [facility] Healthcare Address [address] [place] [address] Care Team Providers Care Monorail Helper Name Role Phone Judith Walton NP Primary Care Provider + [phone] Khushbu Phan Unavailable [phone] Reason for Visit * Auth/Cert (Routine) Specialty [...] Expiration Date Visits Re quested Visits Authorized [id number] 1 1 Encounter Details Date Type Department Care Team (Late st Contact Info) Description 03/27/2023 10:30 AM MACHINE DESIGNER Anesthesia Event [facility] Operating Room [address] [place] [address] [place] [id number] [facility] [address] [place] [address] Anesthesia Record Procedure Summary Procedure Name Responsible Anesthesiologist Anesthesia Start Time Anesthesia Stop Time Left shoulder arthroscopy, distal claviculectomy, including distal articular surface, decompression of subacromial space with partial acromioplasty with coracoacromial release, rotator cuff repair, open tenodesis of long tendon of biceps (Left) Epi Casas MD 03/27/23 1030 03/27/23 1246 Events Date Time Event Comment 03/27/2023 0820 1028 In Room 1030 An Start 1030 An Start Data 1038 An Induction The patient was reevaluated immediately before moderate or deep sedation use and before anesthesia induction. 1039 An Intubation 1054 Anesthesia Ready 1109 Quick Note 30min lunch pro vided by Sally Smith MD 1117 Proc Start 1118 Incision Start 1234 Proc Fin 1239 An Extubation 1242 Out of Room 1242 an stop data 1246 An Stop 1247 Handoff to RN I completed my handoff [...] the time of handoff: No value filed. Meds Name Total midazolam 2 mg fentaNYL 100 mcg propofol 200 mg rocuronium 50 mg ondansetron 4 mg dexamethasone 10 mg glycopyrrolate 0.4 mg neostigmine 2 mg ceFAZolin (ANCEF) 2,000 mg/20 mL in ster ile water (premix) 2,000 mg 2,000 mg phenylephrine (MANJEET-SYNEPHRIN E) 25,000 mcg in sodium chloride 0.9% 250 mL (100 mcg/mL) infusion 1.63 mg tranexamic acid 1,000 mg Lactated Ringer's (LR) infusion 1,000 mL * Agents Name O2 N2O Air Sevoflurane Inspired Sevoflurane * [...] Injectable, Topical, None; Removal Time: Tolerated well 03/27/23 09 by Epi Casas MD Peripheral IV Placement Date: 03/27/23; Placement Time: 820; Catheter Size: 20 G; Orientation: Anterior, Right; Location: Forearm; Site Prep: Alcohol; Technique: Anatomical landmarks; Inserted by: Jessika STOREY; Insertion Attempts: 1; Patient Tolerance: Tolerated well; Removal Date: 03/27/23; Removal Time: 1448 03/27/23 08 by Jayna Cat RN 03/27/23 144 by Jayna Cat RN RETIRED Surgical Site 03/27/23; 1129; Le ft; Shoulder; 03/18/24 (Retired LDA, Removed/Completed by Vapotherm with LDA Utility); 1213 (Retired LDA, Removed/Completed by Vapotherm with LDA Utility) 03/27/23 1129 by Solange [...] OR Notes * Anesthesia Postprocedure Evaluation - Epi Casas MD - 03/27/2023 1:38 PM CST Patient: Ambar Alatorre Procedure Summary Date: 03/27/23 Room / Location: [facility] OR [address] [place] [address] OPERATING ROOM Anesthesia Start: 1030 Anesthesia Stop: 1246 Procedure: Left shoulder arthroscopy, distal claviculectomy, including distal articular surface, decompression of subacromial space with partial acromioplasty with coracoacromial release, rotator cuff repair, open tenodesis of long tendon of biceps (Left) Diagnosis: Impingement syndrome of left shoulder Arthritis of left acromioclavicular joint Biceps tendinitis on left (Impingement syndrome of left shoulder [M75.42]) (Arthritis of left acromioclavicular joint [M19.012]) (Biceps tendinitis on left [M75.22]) Providers: Jayson Grijalva MD Responsible Provider: Epi Casas MD Anesthesia Type: general, PNB - continuous catheter ASA Status: 2 Anesthesia Type: general, PNB - continuous catheter Last vitals BP 92/52 Pulse 61 Temp 36 ??C (96.8 ??F) (Temporal) Resp 13 SpO2 97% Anesthesia Post Evaluation Patient location during evaluation: PACU Patient participation: complete - patient participated Level of consciousness: fully awake Pain score: 0 Pain management: adequate Airway patency: adequate Evidence of recall: no Cardiovascular status: acceptable Respiratory status: acceptable Hydration status: acceptable Pt is: normothermic Nausea/Vomiting status: none No notable events documented. INE DESIGNER * Anesthesia Procedure Notes - Epi Casas MD - 03/27/2023 9:01 AM MACHINE DESIGNER Associated Order(s): Peripheral Block Peripheral Block Patient location during procedure: block room End time: 03/27/2023 8:55 AM Reason for block: post-op pain management per surgeon request Ultrasound image in chart or stored: yes Block type: catheter continuous infusion Laterality: left Block type: brachial plexus - interscalene Staff: Placed by: Anesthesiologist: Epi Casas MD Procedure prep: Preprocedure checklist: patient identified, procedure contraindications assessed, site marked, procedure consent, surgical consent, IV checked, risks, benefits and alternatives discussed, monitors and equipment checked and timeout performed Patient position: sitting Procedure performed while patient: sedate with meaningful contact Monitoring: ECG, oximetry and blood pressure Supplemental O2: nasal cannula Prep solution: chlorhexidine/alcohol PPE: provider hat/mask, sterile gloves, sterile drape and sterile probe cover and gel Skin infiltrated with lidocaine 1%: yes Peripheral nerve block: Technique: ultrasound guided Needle type: insulated and Tuohy Needle gauge: 17 G Needle length: 100 mm Injection assessment: injection made incrementally with constant monitoring, local visualized surrounding nerve on ultrasound, negative aspiration for heme, no paresthesias noted and see flowsheet for medication details Catheter: Catheter type: 20g non-stimulating catheter Needle depth at target: 6 cm Catheter depth at skin: 6 cm Catheter placement details: catheter position confirmed by ultrasound, no aspiration of heme, steri-strips, dermal adhesive and occlusive dressing applied Assessment: Block success: full evaluation pending Events: patient tolerated procedure well with no complications Additional comments: 20 ml of 0.5% Bupivacaine with epi injected in divided doses through the needle and catheter around left brachial plexus in the interscalene space. INE DESIGNER INE DESIGNER * Anesthesia Preprocedure Evaluation - Epi Casas MD - 03/26/2023 7:37 AM CST Images from the original note were not included. Anesthesia Evaluation Ambar Alatorre is a 38 y.o. female Procedure(s): Left shoulder arthroscopy, distal claviculectomy, including distal articular surface, decompressionof subacromial space with partial acromioplasty with coracoacromial release, rotator cuff repair, open tenodesis of long tendon of biceps--arthroscopy equipment, Irvin and Nephew vapor, Breg Sling shot 2 sling with abduction pillow, NMES, Irvin/Nephew anchors, Spider, Arthrex anchors, beach chair, polar care, biceps tenodesis set (subpec) Arthrex, rotation medical implant on hold Pre-Op Diagnosis Codes: * Impingement syndrome of left shoulder [M75.42] * Arthritis of left acromioclavicular joint [M19.012] * Biceps tendinitis on left [M75.22] HISTORY Past Medical History Information obtained from: patient and chart. Neurological + Psychiatric history - anxiety and depression Cardiovascular Cardiac system: negative Respiratory + Asthma + Current smoker (Nicotine vape and occas MJ) - Counseled to abstain from smoking the day of surgery. Patient refrained from smoking on day of surgery. 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 Hepatic / Heme + History of anemia Gastrointestinal + GERD - PRN medication use only. + Hiatal hernia Renal / Renal/ system: negative Musculoskeletal/Pain + Headaches - migraine headaches. Endocrine / Other + Obesity (BMI >30) Functional Capacity Functional capacity: 4-6 METs and 6-10 METs Patient Active Problem List Diagnosis Date Noted Impingement syndrome of left shoulder 03/13/2023 Arthritis of left acromioclavicular joint 03/13/2023 Biceps tendinitis on left 03/13/2023 Abnormal electrocardiogram (ECG) (EKG) 08/11/2022 Chest pain 08/11/2022 Tobacco use 08/11/2022 Dysmenorrhea 04/02/2018 Functional ovarian cysts 04/02/2018 Menorrhagia with irregular cycle 03/07/2017 Past Medical History: Diagnosis Date Anemia Anxiety Asthma Depression Gastric reflux GERD (gastroesophageal reflux disease) Hiatal hernia Hypercholesteremia Migraines PONV (postoperative nausea and vomiting) Past Surgical History: Procedure Laterality Date HYSTERECTOMY OOPHERECTOMY Partial OTHER SURGICAL HISTORY neurostimulator placement surgery TUBAL LIGATION WISDOM TOOTH EXTRACTION x4 OB History No obstetric history on file. Allergies Allergen Reactions Latex Hives and Shortness of breath Taking? Last Dose Start Date End Date Provider albuterol HFA (PROVENTIL HFA,VENTOLIN HFA,PROAIR HFA) 90 mcg/actuation inhaler -- -- -- Anderson Grewal MD ascorbic acid (vitamin C) 1,000 mg tablet -- -- -- Anderson Grewal MD atorvastatin (LIPITOR) 10 mg tablet -- 12/31/22 -- Anderson Grewal MD buPROPion XL (WELLBUTRIN XL) 150 mg 24 hr tablet -- 02/27/23 -- Anderson Grewal MD calcium carbonate (CALCIUM 500 ORAL) -- -- -- Anderson Grewal MD cetirizine (ZyrTEC) 10 mg tablet -- -- -- Anderson Grewal MD cholecalciferol 25 mcg (1,000 unit) tablet -- -- -- Anderson Grewal MD escitalopram (LEXAPRO) 5 mg tablet -- 02/12/23 -- Anderson Grewal MD estradioL (ESTRACE) 2 mg tablet -- 08/02/22 -- Anderson Grewal MD ferrous sulfate 325 mg (65 mg of elemental iron) tablet -- -- -- Anderson Grewal MD fluticasone propionate (FLONASE) 50 mcg/actuation nasal spray -- -- -- Anderson Grewal MD ibuprofen (ADVIL,MOTRIN) 800 mg tablet -- 01/01/23 -- Anderson Grewal MD lamoTRIgine (LaMICtal) 25 mg tablet -- 04/27/22 -- Anderson Grewal MD montelukast (SINGULAIR) 10 mg tablet -- 10/30/20 -- Anderson Grewal MD omeprazole (PriLOSEC) 10 mg capsule -- -- -- Anderson Grewal MD traZODone (DESYREL) 50 mg tablet -- 07/18/22 -- Anderson Grewal MD vitamin B complex capsule -- -- -- Anderson Grewal MD vitamin K2 40 mcg tablet -- -- -- Anderson Grewal MD No current facility-administered medications for this encounter. Current Outpatient Medications: albuterol HFA (PROVENTIL HFA,VENTOLIN HFA,PROAIR HFA) 90 mcg/actuation inhaler ascorbic acid (vitamin C) 1,000 mg tablet atorvastatin (LIPITOR) 10 mg tablet buPROPion XL (WELLBUTRIN XL) 150 mg 24 hr tablet calcium carbonate (CALCIUM 500 ORAL) cholecalciferol 25 mcg (1,000 unit) tablet escitalopram (LEXAPRO) 5 mg tablet estradioL (ESTRACE) 2 mg tablet ferrous sulfate 325 mg (65 mg of elemental iron) tablet ibuprofen (ADVIL,MOTRIN) 800 mg tablet lamoTRIgine (LaMICtal) 25 mg tablet montelukast (SINGULAIR) 10 mg tablet traZODone (DESYREL) 50 mg tablet vitamin B complex capsule vitamin K2 40 mcg tablet cetirizine (ZyrTEC) 10 mg tablet fluticasone propionate (FLONASE) 50 mcg/actuation nasal spray omeprazole (PriLOSEC) 10 mg capsule Social History Tobacco Use Smoking Status Former Packs/day: .5 Types: Cigarettes Smokeless Tobacco Never Alcohol Use: Unknown (2023) AUDIT-C Frequency of Alcohol Consumption: Not on file Average Number of Drinks: Patient does not drink Frequency of Binge Drinking: Not on file Substance and Sexual Activity Drug Use Yes Types: Marijuana Comment: occasionally Family History Problem Relation Age of Onset Diverticulitis Mother Hiatal hernia Mother Stroke Father Alzheimer's disease Father Hypertension Father Atrial fibrillation Father Diabetes Maternal Grandmother Atrial fibrillation Father's Brother Alcohol abuse Other Mental illness Other Arthritis Other Cancer Other Lung disease Other There were no vitals filed for this visit. PT: No results found for requested labs [...] for requested labs within last 30 days. STOP-Bang Total Score: 2 DOS Physical Exam Medical history, medications, and allergies reviewed. Attestation: I endorse the findings of the anesthesia pre-evaluation assessment dated: 03/27/2023. Airway Exam: Mallampati: I Cervical ROM: FROM TM distance: >4 Cardiovascular Exam: Rate: regular Rhythm: regular Pulmonary Exam: LCTA, bilat EENT Exam: trachea midline Dental Exam: Appears intact Skin Exam: Skin is warm. Current state: Patient's current state is cooperative. Anesthesia Plan ASA 2 Planned anesthesia: General and PNB - continuous catheter Team communication plan: oral ET tube Upper extremity: brachial plexus - interscalene Induction: Induction: intravenous. Postoperative Plan: Postoperative administration opioids intended. No postoperative mechanical ventilation intended. Patient's planned disposition post procedure is Outpatient. Informed Consent: Discussed plan with attending and RED CROSS WORKER. Anesthesia plan and risks discussed with patient. Consent and Attending signature: I and/or my designee have discussed the anesthesia plan, benefits, possible alternatives, parental presence at time of induction (if indicated), and clinically relevant risks that may include dental injury, unintentional awareness, and/or other complications. The patient and/or parent/legal guardian understand, and agree to proceed. All questions answered. INE DESIGNER INE DESIGNER documented in this encounter Plan of Treatment Not on file documented as of this encounter Procedures Procedure Name Priority Date/Time Associated Diagnosis Comments ANESTHESIA PERIPHERAL BLOCK Routine 03/27/2023 9:01 AM MACHINE DESIGNER documented in this encounter Results * BW IP ANE LDA PERIPHERAL NERVE CATHETER (03/27/2023 9:01 AM MACHINE DESIGNER) Narrative Epi Casas MD - 03/27/2023 9:01 AM MACHINE DESIGNER Epi Casas MD ? 03/27/2023 10:51 AM Peripheral Block Patient location during procedure: block room End time: 03/27/2023 8:55 AM Reason for block: post-op pain management per surgeon request Ultrasound image in chart or stored: yes Block type: catheter continuous infusion Laterality: left Block type: brachial plexus - interscalene Staff: Placed by: Anesthesiologist: Epi Casas MD Procedure prep: Preprocedure checklist: patient identified, procedure contraindications assessed, site marked, procedure consent, surgical consent, IV checked, risks, benefits and alternatives discussed, monitors and equipment checked and timeout performed Patient position: sitting Procedure performed while patient: sedate with meaningful contact Monitoring: ECG, oximetry and blood pressure Supplemental O2: nasal cannula Prep solution: chlorhexidine/alcohol PPE: provider hat/mask, sterile gloves, sterile drape and sterile probe cover and gel Skin infiltrated with lidocaine 1%: yes Peripheral nerve block: Technique: ultrasound guided Needle type: insulated and Tuohy Needle gauge: 17 G Needle length: 100 mm Injection assessment: injection made incrementally with constant monitoring, local visualized surrounding nerve on ultrasound, negative aspiration for heme, no paresthesias noted and see flowsheet for medication details Catheter: Catheter type: 20g non-stimulating catheter Needle depth at target: 6 cm Catheter depth at skin: 6 cm Catheter placement details: catheter position confirmed by ultrasound, no aspiration of heme, steri-strips, dermal adhesive and occlusive dressing applied Assessment: Block success: full evaluation pending Events: patient tolerated procedure well with no complications Additional comments: 20 ml of 0.5% Bupivacaine with epi injected in divided doses through the needle and catheter around left brachial plexus in the interscalene space. us Epi Casas MD ANESTHESIA ORDERABLES Edit ed Result - Final documented in this encounter Visit Diagnoses Not on filedocumented in this encounter Administered Medications Inactive Administered Medications - up to 3 most recent administrations Medication Order MAR Action Action Date Dose Rate Site ceFAZolin (ANCEF) 2,000 mg/20 mL in sterile water (premix) 2,000 mg 2,000 mg, intravenous, at 400 mL/hr, Administer over 3 Minutes, Once, On Sun03/27/23 at 0830, For 1 dose, Pre-Op, Administer within 60 minutes of incision., Indications: Prophylaxis, SurgicalIndications:Prophylaxis , Surgical Given 03/27/2023 10:46 AM MACHINE DESIGNER 2,000 mg dexAMETHasone (DECADRON) 4 mg/mL injection intravenous, Administer over 2 Minutes, As needed, Starting on Sun03/27/23 at 1056, Anesthesia Intra-op Given 03/27/2023 10:56 AM MACHINE DESIGNER 10 mg fentaNYL (SUBLIMAZE) preservative free injection intravenous, As needed, Starting on Sun03/27/23 at 0841, Anesthesia Intra-op Given 03/27/2023 8:41 AM MACHINE DESIGNER 100 mcg glycopyrrolate (ROBINUL) injection intravenous, Administer over 1 Minutes, As needed, Starting on Sun03/27/23 at 1054, Anesthesia Intra-op Given 03/27/2023 12:19 PM MACHINE DESIGNER 0.2 mg Given 03/27/2023 10:54 AM MACHINE DESIGNER 0.2 mg Lactated Ringer's (LR) infusion 30 mL/hr, intravenous, Continuous, Starting on Sun03/27/23 at 0830, Pre-Op New Bag 03/27/2023 12:16 PM MACHINE DESIGNER Restarted 03/27/2023 11:42 AM MACHINE DESIGNER Rate/Dose Change 03/27/2023 10:44 AM MACHINE DESIGNER 30 mL/ hr midazolam (VERSED) 1 mg/mL preservative free injection intravenous, Administer over 2 Minutes, As needed, Starting on Sun03/27/23 at 0840, Anesthesia Intra-op Given 03/27/2023 8:40 AM MACHINE DESIGNER 2 mg neostigmine (PROSTIGMIN) injection intravenous, Administer over 3 Minutes, As needed, Starting on Sun03/27/23 at 1219, Anesthesia Intra-op Given 03/27/2023 12:19 PM MACHINE DESIGNER 2 mg ondansetron (ZOFRAN) injection intravenous, Administer over 2 Minutes, As needed, Starting on Sun03/27/23 at 1211, Anesthesia Intra-op Given 03/27/2023 12:11 PM MACHINE DESIGNER 4 mg phenylephrine (MANJEET-SYNEPHRINE) 25,000 mcg in sodium chloride 0.9% 250 mL (100 mcg/mL) infusion intravenous, Continuous PRN, Starting on Sun03/27/23 at 1048, Anesthesia Intra-op New Bag 03/27/2023 10:48 AM MACHINE DESIGNER 0.2 mcg/kg/min 11.34 mL/hr propofoL (DIPRIVAN) 10 mg/mL IV intravenous, As needed, Starting on Sun03/27/23 at 1038, Anesthesia Intra-op Given 03/27/2023 10:38 AM MACHINE DESIGNER 200 mg rocuronium (ZEMURON) injection intravenous, As needed, Starting on Sun03/27/23 at 1038, Anesthesia Intra-op Given 03/27/2023 10:38 AM MACHINE DESIGNER 50 mg tranexamic acid (CYKLOKAPRON) 1,000 mg/10 mL (100 mg/mL) solution intravenous, As needed, Starting on Sun03/27/23 at 1050, Anesthesia Intra-op Given 03/27/2023 10:50 AM MACHINE DESIGNER 1,000 mg documented in this encounter Care Teams Monorail Helper Relationship Specialty Start Date End Date Judith Walton NP [address] [place] [address] PCP - General 05/26/20 Khushbu Phan PA [address] [facility] [address], [place] [address] Physician Dairy Management Specialist Orthopedic Surgery 03/27/23 documented as of this encounter
--- OUTSIDE RECORDS SUMMARY | 2024-04-12 13:20 | XMS_ITS | Encounter Summary ---
Author Organization [facility] Address [address] [place] [id number] Care Team Providers Care Project Planner Name Role Phone Judith Walton NP Primary Care Provider Encounter Details Date Type Department Care Team (Late st Contact Info) Description 03/14/2023 Orders Only [facility] Operating Room [address] [place] [address] Jayson Grijalva MD [address] [place] [address] [address] [address] Impingement syndrome of left shoulder (Primary Dx); Arthritis of left acromioclavicular joint; Biceps tendinitis on left Social History Tobacco Use Types Packs/Day Years [...] as of this encounter Visit Diagnoses Diagnosis Impingement syndrome of left shoulder- Primary Arthritis of left acromioclavicular joint Biceps tendinitis on left documented in this encounter Orders General Supply Count Last Ordered Date First Or dered Date NEUROMUSCULAR ELECTRICAL STI MULATION (NMES) 1 03/14/2023 documented in this encounter Care Teams Project Planner Relationship Specialty Start Date End Date Judith Walton NP [address] [place] [address] PCP - General 05/26/20 documented as of this encounter
--- OUTSIDE RECORDS SUMMARY | 2024-04-12 13:20 | XMS_ITS | Encounter Summary ---
Author Organization [facility] Address [address] [place] [address] Care Team Providers Care Director Of Enrollment Name Role Phone Judith Walton DATA MANAGEMENT SPECIALIST Primary Care Provider [phone] Reason for Visit * Reason Comments PT Initial Eval * Consultation (Routine) - Closed Specialty Diagnoses / Procedures Referred By Contac t Referred To Contact Physical Therapy Diagnoses Traumatic incomplete tear of left rotator cuff, initial encounter Arthritis of left acromioclavicular joint Biceps tendinitis of left upper extremity Misbah Gann PA [address] [place] [address] DR GARC[address] [place] [address] Phone: tel: fax: [address] [phone] Referral ID Status Reason Start Date Expiration Date V isits Requested Visits Authorized [id number] Closed Evaluate and Treat 01/22/2023 01/22/2024 24 14 Encounter Details Date Type Department Care Team (Late st Contact Info) Description 01/19/2023 1:00 PM CDT Therapy [facility] [place] [address] Richy Núñez, PT Traumatic incomplete tear of [...] Progress Notes * Richy Núñez, PT - 01/19/2023 1:00 PM CDT Physical Therapy Evaluation 01/19/2023 Ambar Alatorre 1985 37 y.o. female Misbah Gann PA [address] [place] [address] [address] [place] [address] ICD-9-CM ICD-10-CM 1. Traumatic incomplete tear of left rotator cuff, initial encounter 840.4 S46.012A Ambulatory referral order to Physical Therapy - 2. Arthritis of left acromioclavicular joint 716.91 M19.012 Ambulatory referral order to Physical Therapy - 3. Biceps tendinitis of left upper extremity 726.12 M75.22 Ambulatory referral order to Physical Therapy - PT Initial Eval Subjective History of Present Illness: Patient is here today for evaluation of left shoulder pain. Patient hasshoulder pain that has been present for approximately 2 months. She had 2 separate incidents of falling and hurting her shoulder. The 1st incident she used her left arm to stop her fall. The 2nd incident she fell directly on the left shoulder and felt a pop. She utilizes tramadol and ibuprofen for pain control. She reports no previous history of treatment. Movement of her shoulder increases her pain. She went to the orthopedic doctor and was given some medication and an order for PT. Current Symptoms: She complains of a dull ache and it varies to a branding iron burning type pain. Pain: Pain location: Left shoulder Current Pain Ratin/10 At worst Pain Ratin/10 At best Pain Ratin/10 Aggravating Factors: general activity Alleviating Factors: rest, medication Patient Goals: Eliminate pain in left shoulder and get on with life. Objective Inspection: No obvious deformities of left shoulder. Shoulder AROM: Left Flexion 150 Abduction 120 External Rotation 70 Internal Rotation 50 Shoulder PROM: Left Flexion 160 Abduction 160 External Rotation 80 Internal Rotation 60 Upper Extremity Strength: Left Shoulder Flexion 4/5 Shoulder Abduction 4/5 Shoulder Extension 4+/5 Shoulder External Rotation 4+/5 Shoulder Internal Rotation 4+/5 Elbow Flexion 5/5 Elbow Extension 5/5 Palpation: There is tenderness to palpation of the anterior aspect of the left shoulder. Special Testing: Belly press: negative Cross arm: positive Drop arm: negative Stapleton' test: positive Neer's: positive Speed's: positive Treatment Provided: Moist heat to left shoulder PROM to left shoulder Access Code: [email or web address] URL: [email or web address] Date: 01/19/2023 Prepared by: Richy Núñez Exercises [...] weekly - 1 sets - 15 reps Patient requires skilled therapy to restore prior level of function utilizing the treatment and modalities described in this plan of Care. Following the evaluation and extensive patient education regarding diagnosis, prognosis, and treatment goals, the patient (parent/guardian, power of attorney general tinoco) actively participated in the creation of the current goals and agrees to the current treatment plan. Assessment/Plan Ambar was seen this date for initial evaluation of her left shoulder. She had 2 falls on the shoulder back in October. She displays decreased range of motion of the left shoulder. There is tenderness to palpation of the anterior aspect of the left shoulder. There is slight decreased strength of the left shoulder. Impairments: [...] program, soft tissue mobilization, stretching. Assessment Prognosis: fair Plan Start time: 1251 End time: 1335 Therapy options: will be seen for skilled therapy services Frequency: 1 x/week Duration in weeks: 6 weeks Discussed with: patient JOSE C Lopez documented in this encounter Plan of Treatment Not on file documented as of this encounter Visit Diagnoses Diagnosis Traumatic incomplete tear of left rotator cuff, initial encounter Arthritis of left acromioclavicular joint Biceps tendinitis of left upper extremity documented in this encounter Orders Outpatient Referral Count Last Ordered Date Fir st Ordered Date AMB REFERRAL ORDER TO PHYSICAL THERAPY 1 documented in this encounter Care Teams Director Of Enrollment Relationship Specialty Start Date End Date Anton, Judith Salgado NP [address] [place] [address] PCP - General 05/26/20 documented as of this encounter
--- OUTSIDE RECORDS SUMMARY | 2024-04-12 13:20 | XMS_ITS | Encounter Summary ---
Author Organization [facility] Address [address] [place] [address] Care Team Providers Care Milling General Superintendent Name Role Phone AntonJudith Naomi GOMEZ Primary Care Provider [phone] Reason for Referral * Consultation (Routine) - Closed Specialty Diagnoses / Procedures Referred By Contadrian t Referred To Contact Physical Therapy Diagnoses S/P arthroscopy of left shoulder Jayson Grijalva MD [address] [place] [address] [address] [address] Phone: tel: fax: [address] [phone] Referral ID Status Reason Start Date Expiration Date V isits Requested Visits Authorized [id number] Closed Evaluate and Treat 02/16/2023 04/15/2023 18 13 Question Answer PTRFR PT Evaluate and Treat Therapy options discussed with patient? Yes Location provided for therapy services is: Patient requested/Patient preferred Please select the performing region: [facility] [144] # of visits: 18 Comments I [place] Arthroscopic rotator cuff repair, distal clavicle excision with subacromial decompression, sub arechiga biceps tenodesis Today: 02/16/23 Name: Ambar Nereyda Alatorre : 1985 ROTATOR CUFF REPAIR REHABILITATION PROTOCOL Surgery Date: 03/27/23 Please evaluate and treat according to the following protocol: Frequency: 2-3x/week Duration: 6 weeks ADDITIONAL INSTRUCTIONS: Please contact patient to schedule therapy to begin 5-7 days following surgery For all PT reports that require a signature-please fax to [phone] PHASE I: (Weeks 0-1) GOALS: Protect rotator cuff repair Control pain and swelling SLING: Sling immobilization with abduction pillow at all times except for bathing and exercises WEIGHT BEARING: Non-weight bearing EXERCISES: Active range of motion elbow, wrist, and hand Institution Librarian strengthening Shoulder pendulums PHASE II: (Weeks 1-6) GOALS: Early passive range of motion SLING: Discontinue abduction pillow at 5 weeks post-op Discontinue sling at 6 weeks post-op EXERCISES: Education on scapular postion and posture PASSIVE range of motion shoulder ONLY, keep arm at or above midline Pendulums Supine elevation in the scapular plane = 140?? ER to tolerance with the arm at the side = 40?? ABD = max 60-80?? without rotation NO IR/behind the back Institution Librarian strengthening NO JASS/Canes until week 6 No [...] is usually at 10 to 12 months Jayson Grijalva MD Encounter Details Date Type Department Care Team (Late st Contact Info) Description 02/16/2023 Orders Only [facility] Orthopedic and Sports Medicine [address] [place] [phone] Jayson Grijalva MD [address] [facility] [address] GARCIA [address] [address] S/P arthroscopy of left shoulder (Primary Dx) [...] Physical Therapy - Outpatient Referral Routine S/P arthroscopy of left shoulder Expected: 03/02/2023 (Approximate), Expires: 02/17/2024 documented as of this encounter Visit Diagnoses Diagnosis S/P arthroscopy of left shoulder- Primary documented in this encounter Care Teams Milling General Superintendent Relationship Specialty Start Date End Date Judith Walton NP [address] [place] [address] PCP - General 05/26/20 documented as of this encounter
--- OUTSIDE RECORDS SUMMARY | 2024-04-12 13:20 | XMS_ITS | Encounter Summary ---
Author Organization [facility] Address [address] [place] [address] Care Team Providers Care Vamp Wetter Name Role Phone Judith Walton NP Primary Care Provider [phone] Reason for Visit * Reason Comments PT Treatment * Consultation (Routine) - Closed Specialty Diagnoses / Procedures Referred By Kody wall Referred To Contact Physical Therapy Diagnoses Traumatic incomplete tear of left rotator cuff, initial encounter Arthritis of left acromioclavicular joint Biceps tendinitis of left upper extremity Misbah Gann PA [address] [place] [address] DR GARCIA [address] [place] [address] Phone: tel: fax: [address] [phone] Referral ID Status Reason Start Date Expiration Date V isits Requested Visits Authorized [id number] Closed Evaluate and Treat 01/22/2023 01/22/2024 24 14 Encounter Details Date Type Department Care Team (Late st Contact Info) Description 01/23/2023 7:00 AM CDT Therapy [facility] [place] [address] Shawna Yanes, SHAKA Traumatic incomplete tear of [...] Progress Notes * Shawna Yanes PTA - 01/23/2023 7:00 AM CDT Physical Therapy Visit 01/23/2023 Ambar Alatorre 1985 ICD-9-CM ICD-10-CM 1. Traumatic incomplete tear of left rotator cuff, initial encounter 840.4 S46.012A 2. Arthritis of left acromioclavicular joint 716.91 M19.012 3. Biceps tendinitis of left upper extremity 726.12 M75.22 Subjective: Pain: 08/23 left shoulder Ambar denies any new complaints after her initial evaluation She states she is performing her HEP and afraid her shoulder may freeze Objective: See treatment provided Added stabilization activity Treatment Provided: Moist heat to left shoulder PROM to left shoulder ABC Scapular stabilization--punches and ABC Pulleys flexion and abduction Access Code: [email or web address] URL: [email or web address] Date: 01/19/2023 Prepared by: Richy Núñez Exercises [...] current treatment program progressing as tolerated Time in:06 Time out:736 Shawna Yanes PTA documented in this encounter Plan of Treatment Not on file documented as of this encounter Visit Diagnoses Diagnosis Traumatic incomplete tear of left rotator cuff, initial encounter- Primary Arthritis of left acromioclavicular joint Biceps tendinitis of left upper extremity documented in this encounter Care Teams Vamp Wetter Relationship Specialty Start Date End Date Judith Walton NP [address] [place] [address] PCP - General 05/26/20 documented as of this encounter
--- OUTSIDE RECORDS SUMMARY | 2024-04-12 13:21 | XMS_ITS | Encounter Summary ---
Author Organization [facility] Address [address] [place] [address] Care Team Providers Care Product Support Sales Representative Name Role Phone Anton Judith Salgado NP Primary Care Provider [phone] Encounter Details Date Type Department Care Team (Latest Contact Info) Description 08/27/2021 2:35 PM CDT - 08/27/2021 2:48 PM CDT Hospital Encounter [facility] [address] [place] [address] Discharge Disposition: Discharge to home or self care Social History Tobacco Use Types Packs/Day Years Used Date Smoking Tobacco: Every Day Cigarettes Smokeless Tobacco: Never Comments No Sex and Gender Information Value Date Recorded Sex Assigned at Not on file Legal Sex Female 11:20 PM CDT Gender Identity Not on file Sexual Orientation Not on file documented as of this encounter Medications at Time of Discharge albuterol HFA (PROVENTIL HFA,VENTOLIN HFA,PROAIR HFA) 90 mcg/actuation inhalerIndications :Acute Asthma Attack,mild Inhale 2 puffs every 6 (six) hours as needed for wheezing or shortness of breath cetirizine (ZyrTEC) 10 mg tabletIndications: Allergic Rhinitis Take 1 tablet (10 mg total) by mouth nightly fluticasone propionate (FLONASE) 50 mcg/actuation nasal sprayIndications:A llergic Rhinitis Administer 2 sprays into affected nostril(s) as needed for allergies montelukast (SINGULAIR) 10 mg tabletIndications: Seasonal Allergic Rhinitis Take 1 tablet (10 mg total) by mouth nightly 10/30/2020 omeprazole (PriLOSEC) 10 mg capsuleIndications :acid reflux Take 1 capsule (10 mg total) by mouth nightly azithromycin (ZITHROMAX) 250 mg tablet Take 1 tablet (250 mg total) by mouth daily Take first 2 tablets together, then 1 every day until finished. 6 tablet 04/19/2021 3 escitalopram (LEXAPRO) 10 mg tablet Take 1 tablet (10 mg total) by mouth daily 3 fluconazole (DIFLUCAN) 150 mg tabletIndications: Acute non-recurrent pansinusitis Take 1 tablet (150 mg total) by mouth as directed Take one tab now. Repeat in 7 days if symptoms persist. 2 tablet 11/19/2020 3 ibuprofen (ADVIL,MOTRIN) 600 mg tablet Take 1 tablet (600 mg total) by mouth every 6 (six) hours as needed 11/24/2017 3 Lyllana 0.1 mg/24 hr UNWRAP AND APPLY 1 PATCH TO THE SKIN TWICE WEEKLY 10/22/2020 3 documented as of this encounter Discharge Disposition Disposition Code Departure Means Destination Discharge to home or self care documented in this encounter Plan of Treatment Not on file documented as of this encounter Procedures Procedure Name Priority Date/Time Associated Diagnosis Comments XR KNEE LEFT 3 VIEWS ED 08/27/2021 2:59 PM CDT documented in this encounter Results * XR Knee Left 3 Views (08/27/2021 2:59 PM CDT) Anatomical Region Laterality Modality Lower Extremities, Knee Left Computed Radiography 08/27/2021 3:36 PM CDT Narrative 08/27/2021 3:36 PM CDT EXAM DESCRIPTION: ? XR KNEE LEFT 3 VIEWS REASON FOR STUDY: ?? pain ?? Pt reports that she tripped and fell and she is having L knee pain since. ?? Reports that she struck cement today ?? TECHNIQUE: ?? 3 ??radiographic views acquired of the left knee. COMPARISON: ?? None FINDINGS: There is no definite evidence of acute displaced fracture or dislocation involving the left knee. ??There are tricompartmental degenerative changes left knee with joint space narrowing and spurring. ??There is a small suprapatellar joint effusion. IMPRESSION: ?? 1. ?? Tricompartmental degenerative changes left knee with a small suprapatellar joint effusion. ??No definite evidence of acute displaced fracture or dislocation. THIS IS AN ELECTRONICALLY VERIFIED FINAL REPORT 08/27/2021 3:36 PM - Electronically signed by ??Monae Pierce D.O. PS: PS D: ??08/27/2021 3:36 PM T: ??08/27/2021 3:36 PM Report ID: [id number] Reading Location: ??[id number] Procedure Note Kari Monae Gary, DO - 08/27/2021 EXAM DESCRIPTION: XR KNEE LEFT 3 VIEWS REASON FOR STUDY: pain Pt reports that she tripped and fell and she is having L knee pain since. Reports that she struck cement today TECHNIQUE: 3 radiographic views acquired of the left knee. COMPARISON: None FINDINGS: There is no definite evidence of acute displaced fracture or dislocation involving the left knee. There are tricompartmental degenerative changesleft knee with joint space narrowing and spurring. There is a smallsuprapatellar joint effusion. IMPRESSION: 1. Tricompartmental degenerative changes left knee with a small suprapatellar joint effusion. No definite evidence of acute displaced fracture or dislocation. THIS IS AN ELECTRONICALLY VERIFIED FINAL REPORT 08/27/2021 3:36 PM - Electronically signed by Monae Pierce D.O. PS: PS Report ID: [id number] Reading Location: [id number] us Diomedes Yanes MD IMG XR PROCEDURES Final Re sult documented in this encounter Visit Diagnoses Not on filedocumented in this encounter Care Teams Product Support Sales Representative Relationship Specialty Start Date End Date Walton, Judith Salgaod NP [address]IA [address] [place] [address] PCP - General 05/26/20 documented as of this encounter
--- OUTSIDE RECORDS SUMMARY | 2024-04-12 13:21 | XMS_ITS | Encounter Summary ---
Author Organization [facility] Address [address] [place] [address] Phone Care Team Providers Care Re Dye Hand Name Role Phone Judith Walton NP Primary Care Provider [phone] Reason for Visit * Consultation (Routine) - Closed Specialty Diagnoses / Procedures Referred By Kody wall Referred To Contact Urology Diagnoses Neuromuscular dysfunction of bladder, unspecified Judith Walton NP [address] [place] [address] Phone: tel: fax: [place] [address] [facility] [address] [facility] [address] [place] [address] Phone: tel: fax: Referral ID Status Reason Start Date Expiration Date V isits Requested Visits Authorized [id number] Closed Specialty Services Required 12/05/2021 01/04/2023 99 99 Encounter Details Date Type Department Care Team (Late st Contact Info) Description 04/20/2022 3:40 PM DIRECTOR FINANCIAL ANALYSIS Office Visit [facility] - [facility] Urology [address] [facility] 11th [place] [address] [place] [id number] Umesh Truong MD [address] [facility] [address] [place] [address] History of urinary retention (Primary Dx); History of urinary tract infection Social History Tobacco Use Types Packs/Day Years Used Date Smoking Tobacco: Every Day Cigarettes Smokeless Tobacco: Never Comments No Sex and Gender Information Value Date Recorded Sex Assigned at Not on file Legal Sex Female 11:20 PM CDT Gender Identity Not on file Sexual Orientation Not on file documented as of this encounter Progress Notes * Umesh Truong MD - 04/20/2022 3:40 PM CST HPI: Ambar Alatorre is a 37 y.o. female with a history of urinary retention, she has a InterStim implantfor retention, this was performed in October of 2017, with the old InterStim remote. She want to make sure her InterStim still have significant battery life left. The InterStim has been helping her to urinate, there is no abnormal shocking sensation, she is using her regular program at amplitude about 2-3. She has minimal urinary voiding and storage symptoms. She has not been having frequent urinary tract infection as she had in the past. Her urinalysis is normal today from the chemical dip. LURN SI-10 questionnaire revealed: 1 for urgency, 0 for urgency incontinence, 1 for stress incontinence with coughing/sneezing, 0 for stress incontinence with exercises/lifting, 0 for pain/discomfort with bladder filling, 0 for delay to start urine stream, 1 for slow or weak urine stream, 0 for dribble, Note: [4=every time, 3=most of the time, 2=about half of time, 1=a few times, 0=never] 4-7/day [score of 1] for frequency, 0/night [score of 0] for nocturia. The LUTS is not at all bothered. The LURN-SI is scanned into medical record. ROS: Review Of Systems has been reviewed and can be found in the chart. The patient's past medical history, social history and family history are listed on their questionnaire, have been reviewed and can be found in the chart. UA: see lab results from today Physical examination: GENERAL: Patient is healthy appearing, [...] Normal affect and mood, oriented x 3. Her InterStim is not infected. There is no induration or tenderness over the generator site. The InterStim was interrogated. She is using the program at 2.6. Device is turned on. Impedance was checked between all the different combination electrodes. There is abnormal impedancewith electrode 3. This is check with amplitude 1.0, then recheck at 1.3 and 1.5, giving the same abnormal impedance with electrode 3. Her current program is using electrodes 0 and 1, she is not having issues with that. The battery life is about 31%. Is estimated she may have 26 months of battery life left. She is about 4-1/2 years out from her initial generator placement. Assessment and Plan: Urinary retention Managed by sacral neuromodulation with InterStim in place I suspect she may have more than a year battery life left Abnormal impedance around electrode 3. I will bring her back in 1 year and check impedance and her battery life again. Device otherwise appears to be working properly, she is free from frequent UTI or difficulty emptying the bladder. Audelia Truong MD line locator (Urology) Division of Urologic Surgery [facility] Office [phone] 04/20/2022 4:32 PM CTOR FINANCIAL ANALYSIS documented in this encounter Plan of Treatment Not on file documented as of this encounter Procedures Procedure Name Priority Date/Time Associated Diagnosis Comments POCT URINALYSIS DIPSTICK Routine 04/20/2022 3:36 PM DIRECTOR FINANCIAL ANALYSIS History of urinary retention documented in this encounter Results * POCT urinalysis dipstick (04/20/2022 3:36 PM DIRECTOR FINANCIAL ANALYSIS) Color, Urine, POC Yellow Clarity, ur, POC Clear Clear Glucose, ur, POC Negative Negative MG/DL Ketones, ur, POC Negative Negative Blood, ur, POC Negative Negative pH, ur, POC 6.0 5.0 - 8.0 Protein, ur, POC Negative Negative Nitrite, ur, POC Negative Negative Leukocytes, ur, POC Negative Negative Lot Number 0 Urine 04/20/2022 3:36 PM DIRECTOR FINANCIAL ANALYSIS us Umesh Truong MD POINT OF CARE TEST ORDERABLES Final Result documented in this encounter Visit Diagnoses Diagnosis History of urinary retention- Primary History of urinary tract infection Personal history of urinary (tract) infection documented in this encounter Care Teams Re Dye Hand Relationship Specialty Start Date End Date Walton, Judith Salgado NP [address] [place] [address] PCP - General 05/26/20 documented as of this encounter
--- OUTSIDE RECORDS SUMMARY | 2024-04-12 13:21 | XMS_ITS | Encounter Summary ---
Author Organization [facility] Address [address] [place] [address] Care Team Providers Care Research Interviewer Name Role Phone AntonPareshJudithyifan Salgado NP Primary Care Provider [phone] Reason for Referral * Cardiology (Routine) - Closed Specialty Diagnoses / Procedures Referred By Contac t Referred To Contact Diagnoses SOB (shortness of breath) Procedures Transthoracic Echo (TTE) Complete W Doppler/CF Kamila Prado MD [address] [facility] [address] [place] [address] Phone: tel: fax: [address] [phone] Referral ID Status Reason Start Date Expiration Date Visits Re quested Visits Authorized [id number] Closed 08/11/2022 09/10/2023 1 1 Reason for Visit * Cardiology (Routine) - Closed Specialty Diagnoses / Procedures Referred By Contac t Referred To Contact Diagnoses SOB (shortness of breath) Procedures Transthoracic Echo (TTE) Complete W Doppler/CF Kamila Prado MD [address] [facility] [address] [place] [address] Phone: tel: fax: [address] [phone] Referral ID Status Reason Start Date Expiration Date Visits Re quested Visits Authorized [id number] Closed 08/11/2022 09/10/2023 1 1 Encounter Details Date Type Department Care Team (Latest Contact Info) Description 09/14/2022 7:17 AM CDT - 09/14/2022 11:59 PM CDT Hospital Encounter [facility] Cardiology [address] [id number] SOB (shortness of breath) Discharge Disposition: Discharge to home or self [...] into affected nostril(s) as needed for allergies lamoTRIgine (LaMICtal) 25 mg tabletIndications: Mood Take 2 tablets (50 mg total) by mouth nightly 04/27/2022 montelukast (SINGULAIR) 10 mg tabletIndications: Seasonal Allergic Rhinitis Take 1 tablet (10 mg total) by mouth nightly 10/30/2020 omeprazole (PriLOSEC) 10 mg capsuleIndications :acid reflux Take 1 capsule (10 mg total) by mouth nightly traZODone (DESYREL) 50 mg tabletIndications: insomnia associated with depression Take 1 tablet (50 mg total) by mouth nightly at bedtime 07/18/2022 azithromycin (ZITHROMAX) 250 mg tablet Take 1 tablet (250 mg total) by mouth daily Take first 2 tablets together, then 1 every day until finished. 6 tablet 04/19/2021 3 clonazePAM (KlonoPIN) 1 mg tablet Take 1 tablet (1 mg total) by mouth daily 04/27/2022 3 escitalopram (LEXAPRO) 10 mg tablet Take 1 tablet (10 mg total) by mouth daily 3 estradioL (ESTRACE) 2 mg tablet Take 1 tablet (2 mg total) by mouth daily 08/02/2022 4 fluconazole (DIFLUCAN) 150 mg tabletIndications: Acute non-recurrent [...] Procedure Name Priority Date/Time Associated Diagnosis Comments TRANSTHORACIC ECHO (TTE) COMPLETE W DOPPLER/CF WO CONTRAST Routine 09/14/2022 8:11 AM CDT SOB (shortness of breath) documented in this encounter Results * TRANSTHORACIC ECHO (TTE) COMPLETE W DOPPLER/CF WO CONTRAST (09/14/2022 8:11 AM CDT) Anatomical Region Laterality Modality Ultrasound 09/14/2022 7:40 AM CDT Narrative 09/14/2022 1:59 PM CDT [address] [address] Echocardiogram Report Patient Name: CHARITY MCCONNELL : 1985 Study Date: 09/14/2022 7:40:13 AM Gender: F Tech: AA Location: Echo room 1 Ref.Provider: KAMILA PRADO Height(Cm): 160 BSA: 2.06 Weight(Kg): 95.3 Quality: Good Order Provider: KAMILA PRADO Procedures: Echocardiographic Report: Transthoracic echocardiogram with complete 2D, M-Mode, and color Doppler examination. Indications: Shortness of breath. Measurements: 2D/M Mode ?Doppler ? Measurement ?Value ?Normal Range ? Measurement ?Value ?Normal Range ? EF Teich 2D ?67.2 ? [ 55.0 - 70.0 ] percent ?JESI Vmax ? 3.48 ? [ 2.00 - 4.00 ] cm2 ? EF Mod 4C ?60.3 ? [ 55.0 - 70.0 ] percent ?AV Mean PG ? 2 ?[ 2 - 4 ] mmHg ? LVIDd 2D ? 4.66 ? [ 3.90 - 5.30 ] cm ? AV Peak Prabhu ?0.99 ? [ 1.00 - 1.70 ] m/s ? LVIDs 2D ? 2.92 ? [ 2.30 - 3.90 ] cm ? AV VTI ? 20.86 ?cm ? LVPWd 2D ? 1.01 ? [ 0.60 - 1.00 ] cm ? LVOT Diam ?2.35 ? [ 1.70 - 2.10 ] cm ? IVSd 2D ?0.90 ? [ 0.60 - 0.90 ] cm ? LVOT Peak Prabhu ?0.80 ? [ 0.70 - 1.10 ] m/s ? LA Dimension 2D ?3.61 ? [ 2.70 - 3.80 ] cm ? LVOT VTI ? 17.62 ?[ 20.00 - 30.00 ] cm ? AoR Diam MM ?3.02 ? [ 2.60 - 3.70 ] cm ? MV E Peak Prabhu ?0.69 ? [ 0.60 - 1.30 ] m/s ? ACS MM ? 2.32 ? cm ? MV A Peak Prabhu ?0.63 ? [ 1.00 - 1.20 ] m/s ? MV Mean PG ? 1 ?[ <= 5 ] mmHg ? MV PHT ? 37 ? [ 20 - 100 ] msec ? MVA ?3.10 ? MV Decel Time ?126 ?[ 104 - 258 ] msec ? PV Peak Prabhu ?0.95 ? [ 0.40 - 0.80 ] m/s ? TR Peak Prabhu ?2.10 ? [ 1.00 - 2.80 ] m/s ? TR Peak PG ? 18 ? mmHg ? RVSP ? 23.00 ?[ 10.00 - 36.00 ] mmHg ? E` ? 0.08 ? cm/sec ? E/E` ? 8.33 ? [ <= 10.00 ] ? PA Pressure ?5.00 ? [ 10.00 - 36.00 ] mmHg ? - Findings: Atrial Septum: Normal atrial septum. Left Ventricle: Normal left ventricular systolic function with no focal wall motion abnormalities. Normal left ventricular size. Normal left ventricular wall thickness. Normal left ventricular diastolic function. Ejection fraction is measured at 67 %. Left Atrium: The left atrium is normal in size. Right Ventricle: Normal right ventricular size. Normal right ventricular systolic function. Right Atrium: The right atrium is normal in size. Aortic Valve: Normal structure of the aortic valve. Mitral Valve: Normal structure of the mitral valve. Trivial regurgitation of the mitral valve. Pulmonic Valve: Normal structure of the pulmonic valve. Tricuspid Valve: Normal structure of the tricuspid valve. Normal right ventricular systolic pressure. Trivial regurgitation in the tricuspid valve. Pericardium: Normal pericardium with no significant pericardial effusion. Aorta: Normal aortic root. IVC: Normal size and normal respiratory collapse consistent with normal right atrial pressure (<5 mmHg). Pulmonary Artery: Normal pulmonary artery size. Conclusions: Normal left ventricular systolic function with [...] Normal pericardium with no significant pericardial effusion. Electronically Signed By: Savanah Lane MD 2022-09-14 13:59:12 CDT CC: CC: Procedure Note Savanah Lane MD - 09/14/[address] [address] Echocardiogram Report Patient Name: CHARITY MCCONNELLPatient ID: [id number] : [id number] Date: 09/14/2022 7:40:13 AM Gender: FAccession #: [id number] Tech: AALocation: Echo room 1 Ref.Provider: MAGDY PRADOeikellt(Cm): 160 BSA: 2.06Weight(Kg): 95.3 Quality: GoodOrder Provider: KAMILA PRADO Procedures: Echocardiographic Report: Transthoracic echocardiogram with complete 2D, M-Mode, and color Dopplerexamination. Indications: Shortness of breath. Measurements: 2D/M Mode Doppler Measurement Value Normal Range MeasurementValue Normal Range EF Teich 2D 67.2 [ 55.0 - 70.0 ] percent JESI Vmax3.48 [ 2.00 - 4.00 ] cm2 EF Mod 4C 60.3 [ 55.0 - 70.0 ] percent AV Mean PG 2[ 2 - 4 ] mmHg LVIDd 2D 4.66 [ 3.90 - 5.30 ] cm AV Peak Vel0.99 [ 1.00 - 1.70 ] m/s LVIDs 2D 2.92 [ 2.30 - 3.90 ] cm AV VTI20.86 cm LVPWd 2D 1.01 [ 0.60 - 1.00 ] cm LVOT Diam2.35 [ 1.70 - 2.10 ] cm IVSd 2D 0.90 [ 0.60 - 0.90 ] cm LVOT Peak Vel0.80 [ 0.70 - 1.10 ] m/s LA Dimension 2D 3.61 [ 2.70 - 3.80 ] cm LVOT VTI17.62 [ 20.00 - 30.00 ] cm AoR Diam MM 3.02 [ 2.60 - 3.70 ] cm MV E Peak Vel0.69 [ 0.60 - 1.30 ] m/s ACS MM 2.32 cm MV A Peak Vel0.63 [ 1.00 - 1.20 ] m/s MV Mean PG 1[ <= 5 ] mmHg MV PHT 37[ 20 - 100 ] msec MVA3.10 MV Decel [id number] [ 104 - 258 ] msec PV Peak Vel0.95 [ 0.40 - 0.80 ] m/s TR Peak Vel2.10 [ 1.00 - 2.80 ] m/s TR Peak PG 18mmHg RVSP23.00 [ 10.00 - 36.00 ] mmHg E`0.08 cm/sec E/E`8.33 [ <= 10.00 ] PA Pressure5.00 [ 10.00 - 36.00 ] mmHg - Findings: Atrial Septum: Normal atrial septum. Left Ventricle: Normal left ventricular systolic function with no focal wall motionabnormalities. Normal left ventricular size. Normal left ventricular wall thickness. Normal leftventricular diastolic function. Ejection fraction is measured at 67 %. Left Atrium: The left atrium is normal in size. Right Ventricle: Normal right ventricular size. Normal right ventricular systolicfunction. Right Atrium: The right atrium is normal in size. Aortic Valve: Normal structure of the aortic valve. Mitral Valve: Normal structure of the mitral valve. Trivial regurgitation of the mitralvalve. Pulmonic Valve: Normal structure of the pulmonic valve. Tricuspid Valve: Normal structure of the tricuspid valve. Normal right ventricular systolicpressure. Trivial regurgitation in the tricuspid valve. Pericardium: Normal pericardium with no significant pericardial effusion. Aorta: Normal aortic root. IVC: Normal size and normal respiratory collapse consistent with normal rightatrial pressure (<5 mmHg). Pulmonary Artery: Normal pulmonary artery size. Conclusions: Normal left ventricular systolic function with no focal wall motionabnormalities. Normal left ventricular size. Normal left ventricular wall thickness. Normal leftventricular diastolic function. Ejection fraction is measured at 67 %. Normal right ventricular size. Normal right ventricular systolicfunction. Normal structure of the mitral valve. Trivial regurgitation of the mitralvalve. Normal structure of the aortic valve. Normal structure of the tricuspid valve. Normal right ventricular systolicpressure. Trivial regurgitation in the tricuspid valve. Normal pericardium with no significant pericardial effusion. Electronically Signed By: Savanah Lane MD 2022-09-14 13:59:12 CDT CC: CC: Kamila Prado MD CV ECHO PROCEDURES Final Result documented in this encounter Visit Diagnoses Diagnosis SOB (shortness of breath) Shortness of breath documented in this encounter Care Teams Research Interviewer Relationship Specialty Start Date End Date Judith Walton NP [address] [place] [address] PCP - General 05/26/20 documented as of this encounter
--- OUTSIDE RECORDS SUMMARY | 2024-04-12 13:21 | XMS_ITS | Encounter Summary ---
Author Organization [facility] [employer] [facility] Address [address] [place] [address] Phone Care Team Providers Care Communications Agent Name Role Phone Judith Walton NP Primary Care Provider [phone] Reason for Visit * Reason Comments Recurrent UTI * Consultation (Routine) - Closed Specialty Diagnoses / Procedures Referred By Kody wall Referred To Contact Urology Diagnoses Neuromuscular dysfunction of bladder, unspecified Judith Walton NP [address] [facility] [address] [place] [address] Phone: tel: fax: [place] [id number] [facility] [address] [place] [address] Phone: tel: fax: Referral ID Status Reason Start Date Expiration Date V isits Requested Visits Authorized [id number] Closed Specialty Services Required 12/05/2021 01/04/2023 99 99 Encounter Details Date Type Department Care Team (Late st Contact Info) Description 01/24/2022 11:00 AM CDT Office Visit [facility] ([facility]) - [facility] Urology [address] [facility] [address]th [place] [address] [place] [id number] Cuca Meade NP [address] [facility] [address] [place] [address] Neuromuscular dysfunction of bladder, unspecified (Primary Dx); Frequent urinary tract infections Social History Tobacco Use Types Packs/Day Years Used Date Smoking Tobacco: Every Day Cigarettes Smokeless Tobacco: Never Comments No Sex and Gender Information Value Date Recorded Sex Assigned at Not on file Legal Sex Female 11:20 PM CDT Gender Identity Not on file Sexual Orientation Not on file documented as of this encounter Ordered Prescriptions Prescription Sig Dispense Quantity Refills Last Filled Start Date End Date sulfamethoxazole-t rimethoprim (BACTRIM DS) 800-160 mg per tabletIndications: Frequent urinary tract infections Take 1 tablet by mouth 2 (two) times a day for 10 days 20 tablet 1 01/24/2022 02/03/2022 documented in this encounter Progress Notes * Cuca Meade, FACILITY ENVIRONMENTAL TECHNICIAN - 01/24/2022 11:00 AM CDT Subjective/Objective Patient ID: Ambar Alatorre is a 36 y.o. female. Chief Complaint Recurrent UTI HPI Ambar Alatorre is a 36 y.o. female who is s/p interstim placement in October 2017 for urinary retention here for recurrent Urinary Tract Infection. Currently reports incomplete bladder emptying, urgency, urge incontinence and stress incontinence. She does feel like she has a Urinary Tract Infection including dysuria and irritation when urinating. After her interstim placement she started being sexual active again. She then developed Urinary Tract Infection's. She was started on post coital bactrim about 4 years ago. She feels that did help with symptoms. Has not had an active prescription for some time. She is also taking cranberry juice for Urinary Tract Infection prevention. She is on a daily probiotic as well. She has the interstim in place which she feels like is working well. Current settings are program 4amplitude 2.7. She reports years of urinary dysfunction and Urinary Tract Infection's. Also has chronic BV. H/o total hysterectomy in 2017. Measurement of post-voiding residual urine and/or bladder capacity by ultrasound, non-imaging. PVR = 26mls. Past Medical History: has a past medical history of Anxiety, Asthma, and Depression. Past Surgical History: Past Surgical History: Procedure Laterality Date HYSTERECTOMY OTHER SURGICAL HISTORY neurostimulator placement surgery WISDOM TOOTH EXTRACTION x4 Medication: Current Outpatient Medications on File Prior to Visit Medication Sig Dispense Refill albuterol HFA (PROVENTIL HFA,VENTOLIN HFA,PROAIR HFA) 90 mcg/actuation inhaler Inhale 2 puffs every6 (six) hours as needed azithromycin (ZITHROMAX) 250 mg tablet Take 1 tablet (250 mg total) by mouth daily Take first 2 tablets together, then 1 every day until finished. (Patient not taking: No sig reported) 6 tablet 0 cetirizine (ZyrTEC) 10 mg tablet Take 10 mg by mouth daily escitalopram (LEXAPRO) 10 mg tablet Take 10 mg by mouth daily fluconazole (DIFLUCAN) 150 mg tablet Take 1 tablet (150 mg total) by mouth as directed Take one tabnow. Repeat in 7 days if symptoms persist. (Patient not taking: No sig reported) 2 tablet 0 fluticasone propionate (FLONASE) 50 mcg/actuation nasal spray Administer 2 sprays into affected nostril(s) daily ibuprofen (ADVIL,MOTRIN) 600 mg tablet Take 600 mg by mouth every 6 (six) hours as needed Lyllana 0.1 mg/24 hr UNWRAP AND APPLY 1 PATCH TO THE SKIN TWICE WEEKLY montelukast (SINGULAIR) 10 mg tablet omeprazole (PriLOSEC) 10 mg capsule Take 10 mg by mouth daily No current facility-administered medications on file prior to visit. Allergies: Allergies Allergen Reactions Latex Hives and Shortness of breath Social History: Social History Tobacco Use Smoking status: Every Day Packs/day: 0.10 Types: Cigarettes Smokeless tobacco: Never Substance and Sexual Activity Drug use: Not on file Sexual activity: Not on file Alcohol Use: Not on file Family History: Family History Problem Relation Age of Onset Diverticulitis Mother Hiatal hernia Mother Stroke Father Alzheimer's disease Father Hypertension Father Atrial fibrillation Father Atrial fibrillation Father's Brother Diabetes Maternal Grandmother Review of Systems Genitourinary: Positive for difficulty urinating and dysuria. Physical Exam Constitutional: Appearance: Normal appearance. Musculoskeletal: General: Normal range of motion. Neurological: Mental Status: She is oriented to person, place, and time. Psychiatric: Mood and Affect: Mood normal. Behavior: Behavior normal. Results for orders placed or performed in visit on 01/24/22 POCT urinalysis dipstick Result Value Ref Range Glucose, ur, POC Negative Negative MG/DL Ketones, ur, POC Negative Negative Blood, ur, POC Negative Negative pH, ur, POC 5.0 5.0 - 8.0 Protein, ur, POC Negative Negative Nitrite, ur, POC Negative Negative Leukocytes, ur, POC Negative Negative Lot Number 0 Assessment/Plan Ambar Alatorre is a 36 y.o. female who is s/p interstim placement in October 2017 for urinary retention here for recurrent Urinary Tract Infection. Diagnoses and all orders for this visit: Neuromuscular dysfunction of bladder, unspecified (N31.9) (Primary) - Follow up with Dr Truong to discuss interstim replacement. Frequent urinary tract infections (N39.0) UTI Prevention Discussed: ~ Adequate fluid intake, at least 6-8 glasses of water a day. ~ Urinate every 2-3 hours. Do not postpone urination. ~ Good perineal hygiene and keep urethra clean. ~ Wipe from front to back as to not introduce bacteria into the urethra. ~ Avoid irritating chemicals like bleach, perfumes, detergent, bubble bath, etc. ~ Wear breathable undergarments like cotton. ~ Urinate after intercourse. ~ Try a high acidic diet (Vitamin C supplement, cranberry juice or supplement, etc). Acidic urine helps decrease UTI. ~ Avoid constipation ~ Avoid bladder irritants such as caffeinated beverages, carbonated drinks, citrus fruits and drinks, artificial sweeteners, spicy foods, and tobacco use. ~ For females, treat any vaginal infection promptly. ~ Will start post coital antibiotics. Bactrim sent to pharmacy on file. documented in this encounter Plan of Treatment Not on file documented as of this encounter Procedures Procedure Name Priority Date/Time Associated Diagnosis Comments POCT URINALYSIS DIPSTICK Routine 01/24/2022 11:28 AM CDT Neuromuscular dysfunction of bladder, unspecified MEASURE POST VOID RESIDUAL Routine 01/24/2022 Neuromuscular dysfunction of bladder, unspecified documented in this encounter Results * POCT urinalysis dipstick (01/24/2022 11:28 AM CDT) Glucose, ur, POC Negative Negative MG/DL Ketones, ur, POC Negative Negative Blood, ur, POC Negative Negative pH, ur, POC 5.0 5.0 - 8.0 Protein, ur, POC Negative Negative Nitrite, ur, POC Negative Negative Leukocytes, ur, POC Negative Negative Lot Number 0 Urine 01/24/2022 11:2 8 AM CDT Cuca Meade FACILITY ENVIRONMENTAL TECHNICIAN POINT OF CARE TEST ORDER BONNIE Final Result * Measure post void residual (01/24/2022) Narrative Teodora Muir RMA - 01/24/2022 Measurement of post-voiding residual urine and/or bladder capacity by ultrasound, non-imaging. ??PVR = 26mL Cuca Meade NP NURSING ASSESSMENTS Jackelin l Result documented in this encounter Visit Diagnoses Diagnosis Neuromuscular dysfunction of bladder, unspecified- Primary Frequent urinary tract infections documented in this encounter Orders Outpatient Referral Count Last Ordered Date Fir st Ordered Date AMB REFERRAL TO UROLOGY 1 01/24/2022 documented in this encounter Care Teams Communications Agent Relationship Specialty Start Date End Date Judith Walton NP [address] [place] [address] PCP - General 05/26/20 documented as of this encounter
--- OUTSIDE RECORDS SUMMARY | 2024-04-12 13:21 | XMS_ITS | Encounter Summary ---
Author Organization [facility] Address [address] [place] [address] Care Team Providers Care Vat Packer Name Role Phone Judith Walton NP Primary Care Provider [phone] Reason for Referral * Cardiology (Routine) - Closed Specialty Diagnoses / Procedures Referred By Contac t Referred To Contact Diagnoses SOB (shortness of breath) Procedures Transthoracic Echo (TTE) Complete W Doppler/CF Kamila Prado MD [address] [place] [address] [address] Phone: tel: fax: [address] [phone] Referral ID Status Reason Start Date Expiration Date Visits Re quested Visits Authorized [id number] Closed 08/11/2022 09/10/2023 1 1 Reason for Visit * Reason Comments New Patient Abnormal ECG Chest Pain Encounter Details Date Type Department Care Team (Latest Contact Info) Description 08/11/2022 8:30 AM CDT Office Visit [facility] at [address] [phone] Charley Baeza NP [address] [place] [address] Abnormal electrocardiogram (ECG) (EKG) (Primary Dx); Chest pain, unspecified type; Tobacco use; SOB (shortness of breath) Social History Tobacco Use Types Packs/Day Years Used Date Smoking Tobacco: Every Day Cigarettes Smokeless Tobacco: Never Tobacco Cessation:Ready to Q uit: Not Asked; Counseling Given: Not Answered Comments No Sex and Gender Information Value Date Recorded Sex Assigned at Not on file Legal Sex Female 11:20 PM CDT Gender Identity Not on file Sexual Orientation Not on file documented as of this encounter Last Filed Vital Signs Vital Sign Reading Time Taken Comments Blood Pressure 128/82 08/11/2022 9:01 AM CDT Pulse 80 08/11/2022 9:01 AM CDT Temperature - - Respiratory Rate 18 08/11/2022 9:01 AM CDT Oxygen Saturation - - Inhaled Oxygen Concentration - - Weight 90.3 kg (199 lb) 08/11/2022 9:01 AM CDT Height 160 cm (5' 3 ) 08/11/2022 9:01 AM CDT Body Mass Index 35.25 08/11/2022 9:01 AM CDT documented in this encounter Progress Notes * Charley Baeza NP - 08/11/2022 8:30 AM CDT Cardiology note Reason for Office Visit: New patient, abnormal EKG History of Present Illness: Charity Alatorre is a 37 y.o. female who presents for new patient evaluation of abnormal EKG. She hasbeen having intermittent episodes of chest pain which does not seem to be associated with anything specific. Pain radiates to right shoulder and back. She has been seen in ED in june 2022 which showed abnormal T waves concerning for old [place]. She was told her chest pain was related to anxiety and was discharged. She has a history of hystorectomy, PCOS, bladder stimulator placement. She is a former cigarette smoker and now uses a vape pen. Her father had atrial fibrillation. She has no other significant medical history. Past Medical History: Diagnosis Date Anxiety Asthma Depression Review of systems: Review of Systems Constitutional: Negative for decreased appetite, malaise/fatigue, weight gain and weight loss. Cardiovascular: Negative for chest pain, claudication, dyspnea on exertion, irregular heartbeat, leg swelling, palpitations and syncope. Respiratory: Negative for cough, shortness of breath and sleep disturbances due to breathing. Skin: Negative for color change, nail changes and poor wound healing. Musculoskeletal: Positive for arthritis and joint pain. Family and Social history Family History Problem Relation Age of Onset Diverticulitis Mother Hiatal hernia Mother Stroke Father Alzheimer's disease Father Hypertension Father Atrial fibrillation Father Atrial fibrillation Father's Brother Diabetes Maternal Grandmother Social History Tobacco Use Smoking status: Every Day Packs/day: 0.10 Types: Cigarettes Smokeless tobacco: Never Substance and Sexual Activity Drug use: None Sexual activity: None Alcohol Use: Not on file Allergies Allergen Reactions Latex Hives and Shortness of breath Medications: Current Outpatient Medications Medication Sig Dispense Refill albuterol HFA (PROVENTIL [...] tablet Take 10 mg by mouth daily clonazePAM (KlonoPIN) 1 mg tablet Take 1 mg by mouth daily escitalopram (LEXAPRO) 10 [...] mouth every 6 (six) hours as needed lamoTRIgine (LaMICtal) 25 mg tablet Take 25 mg by mouth 2 (two) times a day Lyllana 0.1 mg/24 hr UNWRAP AND APPLY 1 PATCH TO THE SKIN TWICE WEEKLY montelukast (SINGULAIR) 10 mg tablet omeprazole (PriLOSEC) 10 mg capsule Take 10 mg by mouth daily No current facility-administered medications for this visit. Vital Signs: Vitals BP 128/82 (BP Location: Left arm, Patient Position: Sitting) Pulse 80 Resp 18 Ht 160 cm (5' 3 ) Wt 90.3 kg (199 lb) BMI 35.25 kg/m?? Vitals: 08/11/22 0901 BP: 128/82 Pulse: 80 Resp: 18 Wt Readings from Last 3 Encounters: 08/11/22 90.3 kg (199 lb) 07/04/22 95.3 kg (210 lb) 05/20/22 93 kg (205 lb) Physical Exam: Physical Exam Constitutional: Appearance: Normal appearance. Cardiovascular: Rate and Rhythm: Normal rate and regular rhythm. Pulses: Normal pulses. Heart sounds: Normal heart sounds. Pulmonary: Effort: Pulmonary effort is normal. Breath sounds: Normal breath sounds. Abdominal: Palpations: Abdomen is soft. Skin: General: Skin is warm and dry. Neurological: Mental Status: She is alert and oriented to person, place, and time. Psychiatric: Mood and Affect: Mood normal. Behavior: Behavior normal. CARDIOGRAPHICS: EKG 07/04/2022 SINUS TACHYCARDIA POSSIBLE INFERIOR MYOCARDIAL INFARCTION , OF INDETERMINATE AGE [30 ms Q WAVE IN II/aVF] MODERATE T-WAVE ABNORMALITY, CONSIDER LATERAL ISCHEMIA [-0.1+ mV T-WAVE IN I/aVL/V5/V6] ABNORMAL ECG Compared to prior EKG, T-wave abnormality is new 48 hour Holter monitor in July 2021 1. Predominant rhythm is normal sinus rhythm [...] patient recorded no symptoms during the study. Impression Chest pain Abnormal EKG concerning for old [place] Tobacco use, ongoing Hyperlipidemia, not on a statin Asthma Plan Echocardiogram and lexiscan now. She has arthritis in her knees which precludes her from a treadmill stress test. Continue same medication regimen. Continue tight control of blood pressure and cholesterol. Continue diet, exercise, and weight reduction. Diagnoses and all orders for this visit: Abnormal electrocardiogram (ECG) (EKG) (Primary) Chest pain, unspecified type Tobacco use Charley Baeza NP 08/11/2022 9:23 AM Cc:Judith Walton NP documented in this encounter Miscellaneous Notes * Addendum Note - Polina Choudhury - 08/11/2022 8:30 AM CDTAddended by: POLINA CHOUDHURY on: 08/11/2022 09:31 AM Modules accepted: Orders documented in this encounter Plan of Treatment Not on file documented as of this encounter Results * TRANSTHORACIC ECHO (TTE) COMPLETE W DOPPLER/CF WO CONTRAST (09/14/2022 8:11 AM CDT) Anatomical Region Laterality Modality Ultrasound 09/14/2022 7:40 AM CDT Narrative 09/14/2022 1:59 PM CDT [address] [address] Echocardiogram Report Patient Name: CHARITY ALATORRE : 1985 Study Date: 09/14/2022 7:40:13 AM [...] Procedure Note Savanah Lane MD - 09/14/[address] [place] [address] Echocardiogram Report Patient Name: CHARITY ALATORREPatient ID: [id number] : [id number] Date: 09/14/2022 7:40:13 AM Gender: FAccession #: [id number] Tech: AALocation: Echo room 1 Ref.Provider: MAGDY PRADOeight(Cm): 160 BSA: 2.06Weight(Kg): 95.3 Quality: GoodOrder Provider: [...] - 100 ] msec MVA3.10 MV Decel [id number] [ 104 - 258 ] msec PV [...] documented in this encounter Visit Diagnoses Diagnosis Abnormal electrocardiogram (ECG) (EKG)- Primary Chest pain, unspecified type Tobacco use SOB (shortness of breath) Shortness of breath SOB (shortness of breath) Shortness of breath documented in this encounter Historical Medications * This list may reflect changes made after this encounter. traZODone (DESYREL) 50 mg tabletIndications :insomnia associated with depression Take 1 tablet (50 mg total) by mouth nightly at bedtime 07/18/2022 estradioL (ESTRACE) 2 mg tablet Take 1 tablet (2 mg total) by mouth daily 08/02/2022 06/04/2023 added in this encounter Care Teams Vat Packer Relationship Specialty Start Date End Date Judith Walton NP [address] [place] [address] PCP - General 05/26/20 documented as of this encounter
--- OUTSIDE RECORDS SUMMARY | 2024-04-12 13:21 | XMS_ITS | Encounter Summary ---
Author Organization [facility] Address [address] [place] [address] Care Team Providers Care Crown Ironer Operator Name Role Phone Judith Walton NP Primary Care Provider [phone] Reason for Referral * Consultation (Routine) - Closed Specialty Diagnoses / Procedures Referred By Kody wall Referred To Contact Physical Therapy Diagnoses Traumatic incomplete tear of left rotator cuff, initial encounter Arthritis of left acromioclavicular joint Biceps tendinitis of left upper extremity Misbah Gann PA [address] [place] [address] [address] [place] [address] Phone: tel: fax: [address] [phone] Referral ID Status Reason Start Date Expiration Date V isits Requested Visits Authorized [id number] Closed Evaluate and Treat 01/22/2023 01/22/2024 24 14 Question Answer PTRFR PT Evaluate and Treat Therapy options discussed with patient? Yes Location provided for therapy services is: Patient requested/Patient preferred Please select the performing region: [facility] [144] # of visits: 12 Comments [place] location 2 x 6 weeks Reason for Visit * Reason Comments Pain Encounter Details Date Type Department Care Team (Latest Contact Info) Description 01/17/2023 2:45 PM CDT Office Visit [facility] Orthopedic and Sports Medicine [address] [place] [phone] Misbah Gann PA [address] [place] [address] [address] [place] [address] Traumatic incomplete tear of left rotator cuff, initial encounter (Primary Dx); Arthritis of left acromioclavicular joint; Biceps tendinitis of left upper extremity Social History Tobacco Use Types Packs/Day Years Used Date Smoking Tobacco: Former Cigarettes Smokeless Tobacco: Never Tobacco Cessation:Counseling Given: Not Answered Comments No Sex and Gender Information Value Date Recorded Sex Assigned at Not on file Legal Sex Female 11:20 PM CDT Gender Identity Not on file Sexual Orientation Not on file documented as of this encounter Last Filed Vital Signs Vital Sign Reading Time Taken Comments Blood Pressure 124/77 01/17/2023 2:39 PM CDT Pulse 74 01/17/2023 2:39 PM CDT Temperature - - Respiratory Rate - - Oxygen Saturation - - Inhaled Oxygen Concentration - - Weight 91.7 kg (202 lb 1.6 oz) 01/17/2023 2:39 PM CDT Height 160 cm (5' 3 ) 01/17/2023 2:39 PM CDT Measured height, no shoes Body Mass Index 35.8 01/17/2023 2:39 PM CDT documented in this encounter Ordered Prescriptions Prescription Sig Dispense Quantity Refills Last Filled Start Date End Date meloxicam (MOBIC) 15 mg tabletIndications: Osteoarthritis Take 1 tablet (15 mg total) by mouth daily 30 tablet 01/17/2023 2023 documented in this encounter Progress Notes * Misbah Gann PA - 01/17/2023 2:45 PM CDT Images from the original note were not included. NEW PATIENT VISIT Subjective CHIEF COMPLAINT She had concerns including Pain of the Left Shoulder. HISTORY OF PRESENT ILLNESS Patient is here today for evaluation of left shoulder pain. Patient has shoulder pain that has beenpresent for approximately 2 months. She is had 2 separate incidents of falling and hurting her shoulder. The 1st incident she used her left arm to stop her fall. The 2nd incident she fell directly onthe left shoulder and felt a pop. She utilizes tramadol and ibuprofen for pain control. She reportsno previous history of treatment. Movement of her shoulder increases her pain. X-rays were obtained at [facility] and reviewed independently today. They show no signs of fractures dislocations or osseous lesions. Well-maintained glenohumeral joint space is noted. Very mild arthritic changes noted at the acromioclavicular joint. And a type 1 acromion. Patient had an ultrasound evaluation performed of the shoulder at [facility] on December 22. Patient is unable to undergo MRI due to implanted pain stimulator. I have independently reviewed this today as well. Tendinosis of the left subscapularis and infraspinatus was noted apartial- thickness tear was also noted of the supraspinatus anteriorly. Acromioclavicular joint hypertrophy was noted. Pain Assessment Pain Score: 6 PAST MEDCIAL HISTORY She has a past medical history of Anemia, Anxiety, Asthma, Depression, Gastric reflux, Hiatal hernia, Hypercholesteremia, and Migraines. PAST SURGICAL HISTORY She has a past surgical history that includes Other surgical history; Hysterectomy; [place] tooth extraction; Oopherectomy; and Tubal ligation. MEDICATIONS She has a current medication list which includes the following prescription(s): albuterol hfa, atorvastatin, cetirizine, escitalopram, estradiol, ibuprofen, lamotrigine, montelukast, tramadol, trazodone, clonazepam, fluticasone propionate, and omeprazole. ALLERGIES She is allergic to latex. SOCIAL [...] nausea and vomiting. Musculoskeletal: Positive for arthralgias. Allergic/Immunologic: Positive for environmental allergies. Neurological: Positive for headaches. Negative for dizziness and light-headedness. Objective PHYSICAL EXAM BP 124/77 Pulse 74 Ht 160 cm (5' 3 ) Comment: Measured height, no shoes Wt 91.7 kg (202 lb 1.6 oz) BMI 35.80 kg/m?? C Spine C spine exam is normal inspection, palpation, and range of motion. Right shoulder The patient has normal inspection, [...] strength throughout with exceptions as noted below. Supraspinatus: 4/5 and painful Neurovascular The patient has normal vascular on the left side of their body. The patient has normal sensation on the left side of their body. Tests Belly press: negative Cross arm: positive Drop arm: negative Hawkin's test: postive Percy's: percy's Neer's: positive Speed's: positive REVIEW OF X-RAYS/STUDIES/LABS XAM DESCRIPTION: XR SHOULDER LEFT 2 OR MORE VIEWS REASON FOR STUDY: PAIN IN LEFT SHOULDER Fell on the 9th and 12th. No surgery No prior injuries Pain is all over. FINDINGS: Four views submitted without comparison. No acute fractures are identified. The glenohumeral joint is normal. There is mild acromioclavicular joint osteoarthritis. Old granulomatous disease is present. IMPRESSION: Mild left acromioclavicular joint osteoarthritis. THIS IS AN ELECTRONICALLY VERIFIED FINAL REPORT 12/06/2022 10:09 AM - Electronically signed by Nakul WILLIS: ALBA Report ID: [id number] Reading Location: [id number] Assessment/Plan Ambar was seen today for pain. Diagnoses and all orders for this visit: Traumatic incomplete tear of left rotator cuff, initial encounter Arthritis of left acromioclavicular joint Biceps tendinitis of left upper extremity Procedures PLAN I reviewed x-ray and ultrasound findings today with the patient. I have also discussed with her thefindings on her exam consistent rotator cuff pathology along with AC joint arthritis and biceps tendinitis. I recommend a course of oral anti-inflammatories. Patient reports she is responded to meloxicam well in the past. We will order this today. The patient was advised that NSAID-type medicationshave two very important potential side effects: gastrointestinal irritation including hemorrhage and renal injuries. She was asked to take the medication with food and to stop if she experiences any GI upset. I asked her to call for vomiting, abdominal pain or black/bloody stools. The patient expresses understanding of these issues and questions were answered. She was advised to stop all other anti-inflammatories. She may continue use Tylenol in conjunction with this as needed. She will be scheduled for follow-up in 4 weeks and we will start physical therapy as soon as possible.. All questions were addressed today and the patient was instructed to call the office with any questions or concerns. There may be grammatical errors in this note due to use of voice recognition software. ANTHONY Fulton Cosigned by Jayson Grijalva MD at 01/24/2023 1:15 PM CDT documented in this encounter Miscellaneous Notes * Addendum Note - Ewelina Mccauley MA - 01/17/2023 2:45 PM CDTAddended by: EWELINA MCCAULEY on: 01/17/2023 03:25 PM Modules accepted: Orders documented in this encounter Plan of Treatment Scheduled Referrals Name Type Priority Associated Diagnoses Orde r Schedule Ambulatory referral order to Physical Therapy - Outpatient Referral Routine Traumatic incomplete tear of left rotator cuff, initial encounter Arthritis of left acromioclavicular joint Biceps tendinitis of left upper extremity Expected: 01/31/2023 (Approximate), Expires: 01/18/2024 documented as of this encounter Visit Diagnoses Diagnosis Traumatic incomplete tear of left rotator cuff, initial encounter- Primary Arthritis of left acromioclavicular joint Biceps tendinitis of left upper extremity documented in this encounter Historical Medications * This list may reflect changes made after this encounter. traMADoL (ULTRAM) 50 mg tablet Take 1 tablet (50 mg total) by mouth every 6 (six) hours 2023 added in this encounter Care Teams Crown Ironer Operator Relationship Specialty Start Date End Date Judith Walton NP [address] [place] [address] PCP - General 05/26/20 documented as of this encounter
--- OUTSIDE RECORDS SUMMARY | 2024-04-12 13:21 | XMS_ITS | Encounter Summary ---
Author Organization [facility] Address [address] [place] [address] Care Team Providers Care Physician Aide Name Role Phone Judith Walton CHIEF SECURITY AND SAFETY OFFICER Primary Care Provider Encounter Details Date Type Department Care Team (Late st Contact Info) Description 09/18/2022 Telephone [employer] [facility] Supervisor at [address] [place] [address] Charley Baeza, PATRICIA [address] [place] [address] [address] [place] [address] Social History Tobacco Use Types Packs/Day Years Used Date Smoking Tobacco: Every Day Cigarettes Smokeless Tobacco: Never Comments No Sex and Gender Information Value Date Recorded Sex Assigned at Not on file Legal Sex Female 11:20 PM CDT Gender Identity Not on file Sexual Orientation Not on file documented as of this encounter Miscellaneous Notes * Telephone Encounter - Ramila Stanton - 09/18/2022 9:20 AM CDT Faxed this note * Telephone Encounter - Ramila Stanton - 09/18/2022 8:31 AM CDT Patient had echo but stress test is being denied for below reason. A Clinical Guideline 024 for Myocardial Perfusion Imaging was used to make this decision. This decision was based on the notes that were sent: you have chest pain. Before we can approve, we need the following notes: doctor's notes that say why you cannot do a heart test where you walk (Exercise Stress Test). These were not given to us. It is suggested that you follow up with your doctor for the next step in your care. documented in this encounter Plan of Treatment Not on file documented as of this encounter Visit Diagnoses Not on filedocumented in this encounter Care Teams Physician Aide Relationship Specialty Start Date End Date Walton, Judith Salgado NP [address] [place] [address] PCP - General 05/26/20 documented as of this encounter
--- OUTSIDE RECORDS SUMMARY | 2024-04-12 13:21 | XMS_ITS | Encounter Summary ---
Author Organization [facility] Healthcare Address [address] [place] [address] Care Team Providers Care Miter Sawyer Name Role Phone Anton Judith Salgado NP Primary Care Provider Reason for Visit * Reason Comments Chest Pain Encounter Details Date Type Department Care Team ([facility] Contact Info) Description 07/04/2022 7:34 PM CDT - 07/04/2022 11:27 PM CDT Emergency [facility] Emergency Department [address] [place] [address] Thao Bain MD [address] [place] [address] Chest pain, unspecified type (Primary Dx) Discharge Disposition: Discharge to home or self [...] Sign Reading Time Taken Comments Blood Pressure 105/57 07/04/2022 11:00 PM CDT Pulse 92 07/04/2022 11:00 PM CDT Temperature 36.9 ??C (98.4 ??F) 07/04/2022 7:41 PM CD T Respiratory Rate 18 07/04/2022 11:00 PM CDT Oxygen Saturation 90% 07/04/2022 11:00 PM CDT Inhaled Oxygen Concentration - - Weight 95.3 kg (210 lb) 07/04/2022 7:41 PM CDT Height - - Body Mass Index 37.2 05/20/2022 1:04 PM [employer]OR [employer] documented in this encounter Discharge Instructions * Discharge Instructions* Thao Bain MD - 07/04/2022 10:59 PM CDT Low risk Heart Score (0-3): At this time it does not seem like your chest pain is related to your heart. Even though all of your tests today were normal, there is approximately a 1-2% chance that youwill go on to have a major acute cardiac event (heart attack or from any cause) in the next month. Please see your primary care doctor or acls nurse within 72 hours. If you have continuing or returning chest pain please return to the emergency department any time. Return to the emergency department for shortness of breath, difficulty breathing, fever, coughing up blood, numbness or weakness, migratory pain or chest pain radiating to the back, leg swelling, vomiting blood, lightheadedness or any other new concerning symptoms. * Attachments The following attachments cannot be sent through Care Everywhere. * Chest Pain (AfterCare(R) Instructions(ER/ED)) (French) documented in this encounter Medications at Time [...] or self care documented in this encounter ED Notes * Thao Bain MD - 07/04/2022 8:09 PM CDT Triage Chief Complaint: Chief Complaint Patient presents with Chest Pain Portions of the record may have been created with voice recognition software. Occasional wrong-word or '[id number]' substitutions may have occurred due to the inherent limitations of voice recognition software. Read the chart carefully and recognize, using context, where substitutions have occurred. H&P: Ambar Alatorre is a 37 y.o. female with h/o hysterectomy, chronic bronchitis, seasonal allergies, presents for chest pain that lasted about an hour. It was severe and sharp now it is mild and dull. No clear aggravating or relieving factors. It was worse and radiating. Now she says it is essentiallygone. No leg pain or swelling. No fever. She has had ???a little?? cough that is nonproductive. Nofever. She has had sinus congestion all week with runny nose and postnasal drip. Her son at bedsidewas recently diagnosed with bronchitis and had a Z-Dick and she is asking if she can have a course of azithromycin too. She does take estrogen because she is had a total hysterectomy. No recent travelor surgery. No hemoptysis. Vapes nicotine but no longer using cigarettes. Nursing Notes Reviewed. Physical Exam: ED Triage Vitals Temp Pulse Resp BP SpO2 07/04/22194007/04/22194007/04/22194007/04/22194107/04/221940 36.9 ??C (98.4 ??F) 107 20 114/79 99 % Temp src Heart Rate Source Patient Position BP Location FiO2 (%) 07/04/221940 -- -- -- -- Temporal Height Height Method Weight Weight Method -- -- 07/04/221940 -- 95.3 kg (210 lb) GENERAL APPEARANCE: Awake and alert. No acute distress. HEAD: Atraumatic. EYES: Sclera anicteric. EOMI. ENT: Tolerates saliva. NECK: Supple. Trachea midline. HEART: RRR. Radial pulses 2+. LUNGS: Respirations unlabored. CTAB. ABDOMEN: Soft. Non-tender. No guarding or rebound. EXTREMITIES: No acute deformities. No lower extremity edema. Symmetrical calves with no palpable cords or tenderness or overlying skin changes SKIN: Warm and dry. NEUROLOGICAL: No gross facial drooping. Moves all 4 extremities spontaneously. Normal speech and mental status. No ataxia noted. PSYCHIATRIC: Anxious affect I have reviewed and interpreted all of the currently available lab results from this visit (if applicable): Labs Reviewed INFLUENZA A/B, RSV, AND COVID-19 PCR Result Value COVID-19 RNA Negative Influenza A RNA Negative Influenza B RNA Negative RSV RNA Negative Narrative: Is the Patient experiencing symptoms consistent with COVID?->Unknown Reason for testing?->Bed placement or semi-private room CBC WITH AUTO DIFFERENTIAL WBC 7.2 Hgb 13.1 Hct 38.6 Plt 259 MPV 10.0 RBC 4.47 MCV 86.4 MCH 29.3 MCHC 33.9 RDW CV 11.9 RDW SD 37.8 NRBC abs 0.00 COMPREHENSIVE METABOLIC PANEL Sodium 136 Potassium, pl 3.3 Chloride 99 CO2 24 Anion gap 13 BUN 11 Creatinine 1.04 Glucose 178 Calcium 9.2 Bilirubin, total <0.2 Protein, pl 7.5 Albumin 4.6 Alk phos 74 ALT 21 AST 20 TROPONIN T HIGH-SENSITIVITY SERIES (BASELINE, 2HR, 4HR, 6HR) Trop T hs <6 DIFFERENTIAL AUTO Neutrophil abs 4.2 Imm gran abs 0.0 Lymphocyte abs 2.4 Monocyte abs 0.4 Eosinophil abs 0.2 Basophil abs 0.0 Neutrophil pct 58.3 Imm gran pct 0.3 Lymphocyte pct 33.0 Monocyte pct 5.7 Eosinophil pct 2.1 Basophil pct 0.6 EGFR eGFR 71 D-DIMER, QUANTITATIVE D-Dimer <215 Radiographs (if obtained): Report Reviewed: XR Chest Pa Lateral 2 Vw Final Result IMPRESSION: No acute cardiopulmonary abnormality. I independently reviewed images and agree with Radiology read EKG (if obtained): (All EKGs are interpreted by myself in the absence of a acls nurse) Sinus tachycardia with a rate of 106, normal intervals, normal axis, normal and nonspecific ST segments and T-waves. No STEMI. Compared to previous EKG on May 26, 2020, no change. ED course/MDM: External chart review: (details typically documented under ED workup or in chart/outside record review above in my note, if obtained) History obtained by: (Typically documented in the HPI section, sometimes in ED course when obtainedfrom additional historians but not at the initial time of patient presentation.) Discussion of management: (typically conversations time stamped and documented in ED course), Independent interpretation studies: (typically documented in ED course and please note that labs and Radiology reads obtained in the ED and listed above have been reviewed) Vitals: 07/04/22201407/04/22 2100 07/04/22 2150 07/04/22 2300 BP: 121/70 120/65 109/64 105/57 Pulse: 94 102 99 92 Resp: 18 18 18 Temp: TempSrc: SpO2: 98% 97% 97% 90% Weight: MDM: Wells low risk, unable to PERC due to tachycardia and estrogen use, negative D- dimer, no indicationfor CTA No ripping tearing chest pain, No migratory pain or pain radiating through to the back, no numbnessweakness or confusion, normal symmetrical peripheral pulses, no audible murmur appreciated. No recent instrumentation of the esophagus no retching or vomiting; no findings on x-ray concerningfor in pneumomediastinum. No pneumonia noted on chest x-ray. No tension pneumothorax. No history of kidney disease or malignancy; no cardiac tamponade physiology suspected Low risk heart score 0-3: Discussed with the patient heart score and the associated 1% risk of acute cardiac event in next month. patient feels improved after lorazepam She was also treated for possible asthma/reactive airway/allergy exacerbation No pneumonia or fever. No indication for antibiotics She reports she needs no refills of her medicine Discharge instructions: The patient and I have discussed results, diagnosis and or diagnostic uncertainty and the need for follow-up. We have discussed follow- up instructions and return precautions, to which the patient verbalized understanding and agreement. Clinical Impression: 1. Chest pain, unspecified type Disposition: Discharge (Please note that portions of this note may have been completed with a voice recognition program. Glass Sander Belt errors occur. Please contact me for any clarification.) Thao Bain MD 07/04/22 5632 * Olga Miranda RN - 07/04/2022 7:38 PM CDT Arrived to ED via [facility] for evaluation of chest pain and general malaise x 1 hour. Refused transport from [facility] earlier and then called EMS from her car. Left sided chest pain with general malaise and off feeling. Denies cardiac history. History of Anxiety and bipolar. * Chuck Stevenson RN - 07/04/2022 7:34 PM CDT Bed: ED07 Expected date: Expected time: Means of arrival: Comments: 76 Chuck Stevenson RN 07/04/221933 documented in this encounter Plan of Treatment Not on file documented as of this encounter Procedures Procedure Name Priority Date/Time Associated Diagnosis Comments XR CHEST PA LATERAL 2 VIEWS ED 07/04/2022 9:51 PM CDT INFLUENZA A/B, RSV, AND COVID-19 PCR Routine 07/04/2022 9:27 PM CDT TROPONIN T HIGH-SENSITIVITY SERIES (BASELINE, 2HR, 4HR, 6HR) STAT 07/04/2022 7:45 PM CDT EGFR STAT 07/04/2022 7:45 PM CDT COMPREHENSIVE METABOLIC PANEL STAT 07/04/2022 7:45 PM CDT DIFFERENTIAL AUTO STAT 07/04/2022 7:3 8 PM CDT CBC WITH AUTO DIFFERENTIAL STAT 07/04/2022 7:38 PM CDT D-DIMER, QUANTITATIVE STAT 07/04/2022 7:38 PM CDT ECG 12-LEAD STAT 07/04/2022 7:31 PM CDT documented in this encounter Results * XR Chest Pa Lateral 2 Vw (07/04/2022 9:51 PM CDT) Anatomical Region Laterality Modality Body, Chest N/A Computed Radiogr aphy 07/04/2022 10:1 7 PM CDT Narrative 07/04/2022 10:21 PM CDT EXAM DESCRIPTION: ?? XR CHEST PA LATERAL 2 VIEWS REASON FOR STUDY: ?? Chest pain, mi cough ?? Evaluation of chest pain and general malaise x 1 hour. ?? Refused transport from [facility] and then called EMS from her car. ?? Left sided chest pain with general malaise and off feeling. ?? Smoker ??Asthma ??Pt has nipple rings in for images. ?? TECHNIQUE: Frontal and lateral ??radiographic views of the chest acquired. COMPARISON: ?? 04/19/2021 FINDINGS: LUNGS/PLEURA: ?? No focal consolidation or pneumothorax. No pleural effusion. HEART/MEDIASTINUM: ?? Heart size is normal. Normal mediastinal and hilar contours. HARDWARE/LINES/TUBES: ?? None. BONES: ?? No acute findings. OTHER: ?? No other significant finding. IMPRESSION: ??No acute cardiopulmonary abnormality. THIS IS AN ELECTRONICALLY VERIFIED FINAL REPORT 07/04/2022 10:21 PM - Electronically signed by ??Kirit Wood M.D. KT: ANI D: ??07/04/2022 10:21 PM T: ??07/04/2022 10:21 PM Report ID: [id number] Reading Location: ??[id number] Procedure Note Kirit Wood MD - 07/04/2022 EXAM DESCRIPTION: XR CHEST PA LATERAL 2 VIEWS REASON FOR STUDY: Chest pain, mi cough Evaluation of chest pain and general malaise x 1 hour[address] transport from [facility] and then called EMS from her car. Left sided chest pain with general malaise and off feeling. Smoker Asthma Pt hasnipple rings in for images. TECHNIQUE: Frontal and lateral radiographic views of the chestacquired. COMPARISON: 04/19/2021 FINDINGS: LUNGS/PLEURA: No focal consolidation or pneumothorax. No pleuraleffusion. HEART/MEDIASTINUM: Heart size is normal. Normal mediastinal and hilar contours. HARDWARE/LINES/TUBES: None. BONES: No acute findings. OTHER: No other significant finding. IMPRESSION: No acute cardiopulmonary abnormality. THIS IS AN ELECTRONICALLY VERIFIED FINAL REPORT 07/04/2022 10:21 PM - Electronically signed by Kirit Wood M.D. KT: ANI Report ID: [id number] Reading Location: [id number] us Thao Bain MD IMG XR PROCEDURES Final Result * Influenza A/B, RSV, and COVID-19 PCR Nasopharyngeal (07/04/2022 9:27 PM CDT) COVID-19 RNA Negative Negative [facility] Influenza A RNA Negative Negative [facility] Influenza B RNA Negative Negative [facility] RSV RNA Negative Negative [facility] ([place]) Comment: Interpretive data: This test is performed using the [employer] Xpert Xpress CoV-2/Flu/RSV plus assay. This is a multiplex, real-time reverse transcriptase PCR assay intended for the qualitative detection of nucleic acid from SARS-CoV-2, influenza A, influenza B, and respiratory syncytial virus. This assay has been reviewed by the FDA for Emergency Use Authorization (EUA). The performance characteristics have been verified by the performing laboratory. Results must be considered in the clinical context, and a negative result does not rule out infection. Interpretive Data last revised 2021. Nasopharyngeal 07/04/2022 9: 27 PM CDT 07/04/2022 9:29 PM CDT Narrative [facility] ([place]) - 07/04/2022 10:06 PM CDT Is the Patient experiencing symptoms consistent with COVID?->Unknown Reason for testing?->Bed placement or semi-private room us Thao Bain MD LAB MICROBIOLOGY - GENER AL ORDERABLES Final Result [facility] ([place]) 1 [facility] Department [place] [address] * eGFR (07/04/2022 7:45 PM CDT) eGFR 71 mL/min/1. 73 m2 [facility] ([place]) Comment: Interpretive Data Reference Interval Normal ?>/= 90 mL/min/1.73m2 Mildly decreased* ? 60 - 89 mL/min/1.73m2 Mildly to moderately decreased ?45 - 59 mL/min/1.73m2 Moderately to severely decreased ??30 - 44 mL/min/1.73m2 Severely decreased ?15 - 29 mL/min/1.73m2 Kidney Failure ?< 15 ??mL/min/1.73m2 *Relative to young adult level Estimated glomerular filtration rate is determined by the 2020 CKD-EPI equation recommended by the National Kidney Foundation (A Unifying Approach to GFR Estimation: Recommendations of the NKF-ASK Task Force on Reassessing the Inclusion of Race in Diagnosing Kidney Disease, JASN 2020). The CKD-EPI equation should not be used for patients with unstable renal function and has not been validated in children and those over 70. Current interpretive data was last reviewed 2021. Blood 07/04/2022 7:45 PM CDT 07/04/2022 7:50 PM CDT Tashi Sher MD LAB BLOOD ORDERABLES Final Res ult Performing Organization Address City/[facility]/ZIP Co de Phone Number [facility] ([place]) 1 [facility] [employer] [address] * Troponin T high-sensitivity series (baseline, 2hr, 4hr, 6hr) (07/04/2022 7:45 PM CDT) Trop T hs <6 <=14 ng/L [facility] ([place]) Comment: Interpretive Data For further hscTnT resources including the diagnostic algorithm and an aid in interpretation, copy and paste this link: https://nrl.testcatalog.org/show/hsTrop Current Interpretive Data last revised 2020. Blood 07/04/2022 7:45 PM CDT 07/04/2022 7:50 PM CDT Tashi Sher MD LAB BLOOD ORDERABLES Final Res ult Performing Organization Address City/[facility]/ZIP Co de Phone Number [facility] ([place]) 1 [facility] [employer] [address] * Comprehensive metabolic panel (07/04/2022 7:45 PM CDT) Sodium 136 135 - 145 mmol/L [facility] ([place]) Potassium, pl 3.3 3.3 - 4.9 mmol/L [facility]) Chloride 99 97 - 110 mmol/L [facility] CO2 24 22 - 32 mmol/L [facility]) Anion gap 13 2 - 15 mmol/L [facility]) BUN 11 8 - 25 mg/dL [facility]) Creatinine 1.04 0.60 - 1.10 mg/dL [facility]) Glucose 178 70 - 199 mg/dL [facility]) Comment: Interpretive Data Fasting glucose >/= 126 mg/dl is diagnostic for diabetes. ?? Fasting is defined as no caloric intake for at least 8 hours. Fasting glucose between 100 mg/dl to 125 mg/dl is diagnostic of prediabetes. In a patient with classic symptoms of hyperglycemia or hyperglycemic crisis, a random glucose >/= 200 mg/dl is diagnostic for diabetes. In the absence of unequivocal hyperglycemia, results should be confirmed by repeat testing. The classification and Diagnosis of Diabetes Diabetes Care 2021; 46: S19-S40. Current interpretive data was last revised 2022. Calcium 9.2 8.5 - 10.3 mg/dL [facility]) Bilirubin, total <0.2 0.1 - 1.2 mg/dL [facility]) Protein, pl 7.5 6.5 - 8.5 g/dL [facility]) Albumin 4.6 3.5 - 5.0 g/dL [facility]) Alk phos 74 40 - 130 Units/L [facility]) ALT 21 7 - 45 Units/L [facility]) AST 20 10 - 45 Units/L [facility]) Blood 07/04/2022 7:45 PM CDT 07/04/2022 7:50 PM CDT us Tashi Sher MD LAB BLOOD ORDERABLES Final Res ult [facility] ([place]) 1 [facility] Department [place] [address] * D-dimer, quantitative (07/04/2022 7:38 PM CDT) D-Dimer <215 <=499 ng/mL FEU [facility] ([place]) Comment: Interpretive data FDA approved the D-dimer, in conjunction with a low or moderate pretest probability score, to exclude venous thromboembolic events (VTE) (PE and DVT) in outpatients when the D-dimer result is < 500 ng/ml FEU. ?? Evidence supports using an age-adjusted D-dimer cut-off for outpatients older than 50 (age x 10) to improve specificity without sacrificing sensitivity. Example: age 68, VTE cut-off 680 ng/ml FEU. References; Schoutraheel HT et al. Brit Med J. 2013;346:f2492. Candelaria et al. Annals Int Med. 2015;163:701-11. Current interpretive data was last revised on 2019. Blood 07/04/2022 7:38 PM CDT 07/04/2022 8:35 PM CDT us Thao Bain MD LAB BLOOD ORDERABLES Fin al Result [facility] ([place]) 1 [facility] Department [place] [address] * Differential, auto (07/04/2022 7:38 PM CDT) Neutrophil abs 4.2 1.7 - 6.5 K/cumm [facility]) Imm gran abs 0.0 0.0 - 0.1 K/cumm [facility]) Lymphocyte abs 2.4 0.8 - 3.3 K/cumm [facility]) Monocyte abs 0.4 0.2 - 0.8 K/cumm [facility]) Eosinophil abs 0.2 0.0 - 0.5 K/cumm [facility]) Basophil abs 0.0 0.0 - 0.1 K/cumm [facility]) Neutrophil pct 58.3 % [facility] ([place]) Comment: Interpretive Data Percent cell count reference ranges are not reported, since discordance with absolute values may lead to misinterpretation of CBC data. Current Interpretive Data was last revised on 2017. Imm gran pct 0.3 % [facility] ([place]) Comment: Interpretive Data Percent cell count reference ranges are not reported, since discordance with absolute values may lead to misinterpretation of CBC data. Current Interpretive Data was last revised on 2017. Lymphocyte pct 33.0 % [facility] ([place]) Comment: Interpretive Data Percent cell count reference ranges are not reported, since discordance with absolute values may lead to misinterpretation of CBC data. Current Interpretive Data was last revised on 2017. Monocyte pct 5.7 % [facility] ([place]) Comment: Interpretive Data Percent cell count reference ranges are not reported, since discordance with absolute values may lead to misinterpretation of CBC data. Current Interpretive Data was last revised on 2017. Eosinophil pct 2.1 % [facility] ([place]) Comment: Interpretive Data Percent cell count reference ranges are not reported, since discordance with absolute values may lead to misinterpretation of CBC data. Current Interpretive Data was last revised on 2017. Basophil pct 0.6 % [facility] ([place]) Comment: Interpretive Data Percent cell count reference ranges are not reported, since discordance with absolute values may lead to misinterpretation of CBC data. Current Interpretive Data was last revised on 2017. Blood 07/04/2022 7:38 PM CDT 07/04/2022 7:50 PM CDT us Tashi Sher MD LAB BLOOD ORDERABLES Final Res ult [facility] ([place]) 1 [facility] Department [place] [address] * CBC with auto differential (07/04/2022 7:38 PM CDT) WBC 7.2 3.8 - 9.9 K/cumm [facility]) Hgb 13.1 11.9 - 15.5 g/dL [facility]) Hct 38.6 35.6 - 45.5 % [facility]) Plt 259 150 - 400 K/cumm [facility]) MPV 10.0 9.1 - 12.3 fL [facility]) RBC 4.47 3.90 - 5.20 M/cumm [facility]) MCV 86.4 81.3 - 96.4 fL [facility]) MCH 29.3 27.1 - 33.3 pg [facility] ([place]) MCHC 33.9 32.3 - 35.7 g/dL [facility]) RDW CV 11.9 11.1 - 14.9 % [facility]) RDW SD 37.8 35.7 - 48.1 fL [facility]) NRBC abs 0.00 0.00 - 0.01 K/cumm [facility]) Blood 07/04/2022 7:38 PM CDT 07/04/2022 7:50 PM CDT Tashi Sher MD LAB BLOOD ORDERABLES Final Res ult Performing Organization Address [facility]/[place] de Phone Number [facility] ([place]) 1 [facility] Department [place] [address] * ECG 12 lead (07/04/2022 7:31 PM CDT) 07/04/2022 7:31 PM CDT Narrative [facility] Lumenergi - 07/05/2022 10:02 AM CDT Vent Rate: 106 bpm RR Interval: 564 msec OR Interval: 187 msec QRS Duration: 102 msec QT Interval: 327 msec QTC Interval: 389 msec P-R-T [place]: 57 - 68 - -68 degrees SINUS TACHYCARDIA POSSIBLE INFERIOR MYOCARDIAL INFARCTION , OF INDETERMINATE AGE [30 ms Q WAVE IN II/aVF] MODERATE T-WAVE ABNORMALITY, CONSIDER LATERAL ISCHEMIA ??[-0.1+ mV T-WAVE IN I/aVL/V5/V6] ABNORMAL ECG Compared to prior EKG, T-wave abnormality is new Electronically Signed By: Felipe Prado MD Tashi Sher MD ECG ORDERABLES Final Result Performing Organization Address [facility]/[place] de Phone Number [facility] documented in this encounter Visit Diagnoses Diagnosis Chest pain, unspecified type- Primary documented in this encounter Administered Medications Inactive Administered Medications - up to 3 most recent administrations Medication Order MAR Action Action Date Dose Rate Site albuterol 2.5 mg/0.5 mL nebulizer solution 5 mg 5 mg, nebulization, Once (leather lacer), On Sun07/04/22 at 2027, For 1 dose Given 07/04/2022 8:34 PM CDT 5 mg dexAMETHasone (DECADRON) injection solution 10 mg 10 mg, intravenous, Administer over 2 Minutes, Once, On Sun07/04/22 at 2027, For 1 dose Given 07/04/2022 9:20 PM CDT 10 mg ipratropium (ATROVENT) 0.02 % nebulizer solution 0.5 mg 0.5 mg, nebulization, Once (leather lacer), On Sun07/04/22 at 2027, For 1 dose Given 07/04/2022 8:34 PM CDT 0.5 mg LORazepam (ATIVAN) injection 0.5 mg 0.5 mg, intravenous, Once, On Sun07/04/22 at 2116, For 1 dose, For IV administration, dilute with equal volume of 0.9% sodium chloride to a final concentration of 1 mg/mL. Do not exceed a rate of 2 mg/minute Given 07/04/2022 9:21 PM CDT 0.5 mg documented in this encounter Active and Recently Administered Medications Times are shown in CDT. Scheduled Medication Order 07/02/2022 07/03/2022 07/04/2022 albuterol 2.5 mg/0.5 mL nebulizer solution 5 mg (COMPLETED) 5 mg, nebulization, Once (leather lacer), On Sun07/04/22 at 2027, For 1 dose 2033 (Given - Provid er: Juma Tapia, ANIBAL) dexAMETHasone (DECADRON) injection solution 10 mg (COMPLETED) 10 mg, intravenous, Administer over 2 Minutes, Once, On Sun07/04/22 at 2027, For 1 dose 2119 (Given - Provid er: Olga Miranda RN) ipratropium (ATROVENT) 0.02 % nebulizer solution 0.5 mg (COMPLETED) 0.5 mg, nebulization, Once (leather lacer), On Sun07/04/22 at 2027, For 1 dose 2033 (Given - Provid er: Juma Tapia, COLLECTOR) LORazepam (ATIVAN) injection 0.5 mg (COMPLETED) 0.5 mg, intravenous, Once, On Sun07/04/22 at 2116, For 1 dose, For IV administration, dilute with equal volume of 0.9% sodium chloride to a final concentration of 1 mg/mL. Do not exceed a rate of 2 mg/minute 2120 (Given - Provid er: Olga Miranda RN) documented in this encounter Additional Health Concerns Infection Onset Date Last Indicated Resolved Time COVID: Suspected 07/04/2022 07/04/2022 07/04/2022 10:07 PM CDT documented as of this encounter Care Teams Miter Sawyer Relationship Specialty Start Date End Date Judith Walton NP [address] [place] [address] PCP - General 05/26/20 documented as of this encounter
--- OUTSIDE RECORDS SUMMARY | 2024-04-12 13:21 | XMS_ITS | Encounter Summary ---
Author Organization [facility] Address [address] [facility] [address] [place] [address] Care Team Providers Care Inspector Quality Assurance Name Role Phone AntonJudith Naomi GOMEZ Primary Care Provider [phone] Reason for Referral * MRI/CAT/PET Scan (Routine) - Closed Specialty Diagnoses / Procedures Referred By Contac t Referred To Contact Radiology Diagnoses Complex tear of medial meniscus of left knee as current injury, subsequent encounter Procedures CT Knee Left WO Contrast Bharathi Santana MD [address] [place] [address] Phone: tel: fax: [facility] [address] [place] [address] Referral ID Status Reason Start Date Expiration Date Visits Re quested Visits Authorized [id number] Closed 11/07/2021 12/07/2022 1 1 Reason for Visit * Reason Comments Pain Encounter Details Date Type Department Care Team (Late st Contact Info) Description 11/07/2021 10:40 AM CDT Office Visit [facility] [address] [place] [phone] Bharathi Santana MD [address] [place] [phone] Internal derangement of left knee (Primary Dx); Complex tear of medial meniscus of left knee as current injury, subsequent encounter Social History Tobacco Use Types Packs/Day [...] Sign Reading Time Taken Comments Blood Pressure - - Pulse - - Temperature - - Respiratory Rate - - Oxygen Saturation - - Inhaled Oxygen Concentration - - Weight 94.8 kg (209 lb) 11/07/2021 11:02 AM CDT Height 160 cm (5' 3 ) 11/07/2021 11:02 AM CDT Body Mass Index 37.02 11/07/2021 11:02 AM CDT documented in this encounter Progress Notes * Bharathi Santana MD - 11/07/2021 10:40 AM CDT This 36-year-old female is seen today for evaluation of left knee pain of 2 years duration. On 08/27/2021 the patient attempted to jump over an object and landed on her bent knee when she fell. Her foot caught at the time. The patient has a nerve stimulator implanted due to a bladder dysfunction. She cannot trust her knee but has been wearing a knee brace with some improvement. Her problem is getting worse. Examination confirms healthy-appearing 36-year-old with positive findings left knee with there is no obvious deformity but there is tenderness to medial joint line to direct palpation. Julienne's andApley's grind tests are positive. Hugh's, pivot shift drawer tests are negative. There is no popliteal mass. Gait pattern is normal. Range of motion is 80% normal. X-rays are within normal limits. Diagnosis-clinical internal derangement left knee. Plan-in view of the nerve stimulator a CT scan will be arranged. The patient will return following investigation. documented in this encounter Miscellaneous Notes * Addendum Note - Kelli Torres - 11/07/2021 10:40 AM CDTAddended by: KELLI TORRES on: 11/07/2021 01:53 PM Modules accepted: Orders documented in this encounter Plan of Treatment Not on file documented as of this encounter Results * CT Knee Left WO Contrast (12/01/2021 7:18 AM CDT) Anatomical Region Laterality Modality Lower Extremities Left Computed Tomog polo 12/01/2021 7:27 PM CDT Narrative 12/01/2021 7:30 PM CDT EXAM DESCRIPTION: ?? CT KNEE LEFT WO CONTRAST REASON FOR STUDY: ?? Meniscal tear, untreated, new symptoms, complete tear medial meniscus ?? Fell on 08/27/2021 / xrays of the left knee were done that day here / still with pain ?? TECHNIQUE: Multidetector CT scan of the ?? left knee ??was performed. ? Coronal and sagittal images were reconstructed. ?? Dose modulation adjustment of the mA and/or kV has been performed per [facility] protocols according to patient size and indication. COMPARISON: ?? Radiographs 08/27/2021 FINDINGS: There is mild tricompartmental left knee osteoarthritis. ??No acute fractures are identified. ??Alignment is normal. ??There is no effusion. ??There are no loose bodies. On limited evaluation, the cruciate and collateral ligaments appear intact. ?? The menisci are incompletely assessed. ??The extensor mechanism is normal. ??The muscle bulk appears within normal limits. IMPRESSION: ??Mild tricompartmental left knee osteoarthritis. THIS IS AN ELECTRONICALLY VERIFIED FINAL REPORT 12/01/2021 7:30 PM - Electronically signed by ??Nakul Kunz M.D. MF: [id number] D: ??12/01/2021 7:30 PM T: ??12/01/2021 7:30 PM Report ID: [id number] Reading Location: ??[id number] Procedure Note Nakul Kunz MD - 12/01/2021 EXAM DESCRIPTION: CT KNEE LEFT WO CONTRAST REASON FOR STUDY: Meniscal tear, untreated, new symptoms, complete tear medial meniscus Fell on 08/27/2021 / xrays of the left knee were done that day here / still with pain TECHNIQUE: Multidetector CT scan of the left knee was performed. Coronal and sagittal images were reconstructed. Dose modulation adjustment of the mA and/or kV has been performed per [facility] protocols according to patient size and indication. COMPARISON: Radiographs 08/27/2021 FINDINGS: There is mild tricompartmental left knee osteoarthritis. No acutefractures are identified. Alignment is normal. There is no effusion. There are no loose bodies. On limited evaluation, the cruciate and collateral ligaments appearintact. The menisci are incompletely assessed. The extensor mechanism is normal.The muscle bulk appears within normal limits. IMPRESSION: Mild tricompartmental left knee osteoarthritis. THIS IS AN ELECTRONICALLY VERIFIED FINAL REPORT 12/01/2021 7:30 PM - Electronically signed by Nakul Kunz M.D. MF: [id number] Report ID: [id number] Reading Location: [place] [address] Bharathi Santana MD IMG CT PROCEDURES Final Result documented in this encounter Visit Diagnoses Diagnosis Internal derangement of left knee- Primary Complex tear of medial meniscus of left knee as current injury, subsequent encounter Complex tear of medial meniscus of left knee as current injury, subsequent encounter documented in this encounter Care Teams Inspector Quality Assurance Relationship Specialty Start Date End Date Judith Walton NP [address] [place] [address] PCP - General 05/26/20 documented as of this encounter
--- OUTSIDE RECORDS SUMMARY | 2024-04-12 13:21 | XMS_ITS | Encounter Summary ---
Author Organization [facility] Healthcare Address [address] [place] [address] Care Team Providers Care Process Cheese Cooker Name Role Phone Judith Walton NP Primary Care Provider [phone] Reason for Referral * Diagnostic Imaging (Routine) - Closed Specialty Diagnoses / Procedures Referred By Kody wall Referred To Contact Procedures US Shoulder Left Complete Judith Walton NP [address] [place] [phone] Phone: tel: fax: Referral ID Status Reason Start Date Expiration Date Visits Re quested Visits Authorized [id number] Closed 01/17/2023 02/16/2024 1 1 Encounter Details Date Type Department Care Team (Late st Contact Info) Description 01/17/2023 Orders Only [facility] Orthopedic and Sports Medicine [address] [place] [phone] Judith Walton NP [address] [place] [address] Social History Tobacco Use Types Packs/Day Years [...] Procedure Name Priority Date/Time Associated Diagnosis Comments US SHOULDER LEFT COMPLETE Schedule Routine, Read Routine (OP Routine) 12/22/2022 3:35 PM CDT documented in this encounter Results * US Shoulder Left Complete (12/22/2022 3:35 PM CDT) Anatomical Region Laterality Modality Shoulder Left Ultrasound us Judith Walton NP IMG US PROCEDURES Final Resu lt documented in this encounter Visit Diagnoses Not on filedocumented in this encounter Care Teams Process Cheese Cooker Relationship Specialty Start Date End Date Judith Walton NP [address] [place] [address] PCP - General 05/26/20 documented as of this encounter
--- OUTSIDE RECORDS SUMMARY | 2024-04-12 13:21 | XMS_ITS | Encounter Summary ---
Author Organization [facility] Healthcare Address [address] [place] [address] Care Team Providers Care Trenching Machine Operator Name Role Phone AntonPareshJudithyifan Salgado NP Primary Care Provider Reason for Visit * Reason Comments Chest Pain Encounter Details Date Type Department Care Team ([facility] Contact Info) Description 08/03/2022 6:53 PM CDT - 08/03/2022 8:28 PM CDT Emergency [facility] Emergency Department [address] [place] [id number] Discharge Disposition: Left without being seen Social History Tobacco Use Types Packs/Day Years [...] Sign Reading Time Taken Comments Blood Pressure 109/69 08/03/2022 7:14 PM CDT Pulse 103 08/03/2022 7:13 PM CDT Temperature 36.8 ??C (98.2 ??F) 08/03/2022 7:13 PM CD T Respiratory Rate 13 08/03/2022 7:13 PM CDT Oxygen Saturation 99% 08/03/2022 7:13 PM CDT Inhaled Oxygen Concentration - - Weight 90.7 kg (200 lb) 08/03/2022 7:13 PM CDT Height - - Body Mass Index 35.43 05/20/2022 1:04 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 Halter monitor came off today. Has had similar episodes in the past and follows up with Cardiology on . Radiates to behind shoulder blade. documented in this encounter Plan of Treatment Not on file documented as of this encounter Procedures Procedure Name Priority Date/Time Associated Diagnosis Comments TROPONIN T HIGH-SENSITIVITY SERIES (BASELINE, 2HR, 4HR, 6HR) STAT 08/03/2022 7:26 PM CDT EGFR STAT 08/03/2022 7:26 PM CDT DIFFERENTIAL AUTO STAT 08/03/2022 7:2 6 PM CDT CBC WITH AUTO DIFFERENTIAL STAT 08/03/2022 7:26 PM CDT COMPREHENSIVE METABOLIC PANEL STAT 08/03/2022 7:26 PM CDT ECG 12-LEAD STAT 08/03/2022 7:02 PM CDT documented in this encounter Results * eGFR (08/03/2022 7:26 PM CDT) [facility] Signature eGFR 72 mL/min/1. 73 m2 [facility] ([place]) Comment: Interpretive Data Reference Interval Normal ?>/= [...] interpretive data was last reviewed 2021. Blood 08/03/2022 7:26 PM CDT 08/03/2022 7:29 PM CDT us Joshua Fournier MD LAB BLOOD ORDERABLES Fi nal Result [facility] [address] [facility] Department of Laboratories [place], [place] [id number] * Differential, auto (08/03/2022 7:26 PM CDT) Neutrophil abs 4.8 1.7 - 6.5 K/cumm [facility] ([place]) Imm gran abs 0.0 0.0 - 0.1 K/cumm [facility] ([place]) Lymphocyte abs 2.8 0.8 - 3.3 K/cumm [facility] ([place]) Monocyte abs 0.6 0.2 - 0.8 K/cumm [facility] ([place]) Eosinophil abs 0.1 0.0 - 0.5 K/cumm [facility] ([place]) Basophil abs 0.1 0.0 - 0.1 K/cumm [facility] ([place]) Neutrophil pct 57.0 % [facility] ([place]) Comment: Interpretive Data Percent cell count reference ranges are not reported, since discordance with absolute values may lead to misinterpretation of CBC data. Current Interpretive Data was last revised on 2017. Imm gran pct 0.1 % [facility] ([place]) Comment: Interpretive Data Percent cell count reference ranges are not reported, since discordance with absolute values may lead to misinterpretation of CBC data. Current Interpretive Data was last revised on 2017. Lymphocyte pct 33.3 % [facility] ([place]) Comment: Interpretive Data Percent cell count reference ranges are not reported, since discordance with absolute values may lead to misinterpretation of CBC data. Current Interpretive Data was last revised on 2017. Monocyte pct 7.2 % [facility] ([place]) Comment: Interpretive Data Percent cell count reference ranges are not reported, since discordance with absolute values may lead to misinterpretation of CBC data. Current Interpretive Data was last revised on 2017. Eosinophil pct 1.7 % [facility] ([place]) Comment: Interpretive Data Percent cell count reference ranges are not reported, since discordance with absolute values may lead to misinterpretation of CBC data. Current Interpretive Data was last revised on 2017. Basophil pct 0.7 % [facility] ([place]) Comment: Interpretive Data Percent cell count reference ranges are not reported, since discordance with absolute values may lead to misinterpretation of CBC data. Current Interpretive Data was last revised on 2017. Blood 08/03/2022 7:26 PM CDT 08/03/2022 7:29 PM CDT Joshua Fournier MD LAB BLOOD ORDERABLES Fi nal Result [facility] [address] [facility] Department [place] [address] * Troponin T high-sensitivity series (baseline, 2hr, 4hr, 6hr) (08/03/2022 7:26 PM CDT) Trop T hs <6 <=14 ng/L [facility] ([place]) Comment: Interpretive Data For further hscTnT resources including the diagnostic algorithm and an aid in interpretation, copy and paste this link: https://nrl.testcatalog.org/show/hsTrop Current Interpretive Data last revised 2020. Blood 08/03/2022 7:26 PM CDT 08/03/2022 7:29 PM CDT us Joshua Fournier MD LAB BLOOD ORDERABLES Fi nal Result [facility] ([place]) [address] [facility] Department [place] [address] * Comprehensive metabolic panel (08/03/2022 7:26 PM CDT) Sodium 136 135 - 145 mmol/L [facility] ([place]) Potassium, pl 3.9 3.3 - 4.9 mmol/L [facility] ([place]) Chloride 98 97 - 110 mmol/L [facility] ([place]) CO2 24 22 - 32 mmol/L [facility] ([place] Anion gap 14 2 - 15 mmol/L [facility] ([place]) BUN 12 8 - 25 mg/dL [facility] ([place]) Creatinine 1.02 0.60 - 1.10 mg/dL [facility] ([place]) Glucose 100 70 - 199 mg/dL [facility] ([place]) [...] interpretive data was last revised 2022. Calcium 9.3 8.5 - 10.3 mg/dL [facility] ([place]) Bilirubin, total 0.3 0.1 - 1.2 mg/dL [facility] ([place]) Protein, pl 7.4 6.5 - 8.5 g/dL [facility] ([place]) Albumin 4.3 3.5 - 5.0 g/dL [facility] ([place]) Alk phos 74 40 - 130 Units/L [facility] ([place]) ALT 21 7 - 45 Units/L [facility] ([place]) AST 15 10 - 45 Units/L [facility] ([place]) Blood 08/03/2022 7:2 6 PM CDT 08/03/2022 7:29 PM CDT us Joshua Fournier MD LAB BLOOD ORDERABLES Fi nal Result [facility] ([place]) 1 [facility] [place] [address] * CBC with auto differential (08/03/2022 7:26 PM CDT) WBC 8.3 3.8 - 9.9 K/cumm [facility] ([place]) Hgb 12.4 11.9 - 15.5 g/dL [facility] ([place]) Hct 36.0 35.6 - 45.5 % [facility] ([place]) Plt 255 150 - 400 K/cumm [facility] ([place]) MPV 10.3 9.1 - 12.3 fL [facility] ([place]) RBC 4.18 3.90 - 5.20 M/cumm [facility] ([place]) MCV 86.1 81.3 - 96.4 fL [facility] ([place]) MCH 29.7 27.1 - 33.3 pg [facility] ([place]) MCHC 34.4 32.3 - 35.7 g/dL [facility] ([place]) RDW CV 11.9 11.1 - 14.9 % [facility] ([place]) RDW SD 37.6 35.7 - 48.1 fL [facility] ([place]) NRBC abs 0.00 0.00 - 0.01 K/cumm [facility] ([place]) Blood (Blood, Venous) 08/03/2022 7:26 PM CDT 08/03/2022 7:29 PM CDT us Joshua Fournier MD LAB BLOOD ORDERABLES Fi nal Result Performing Organization Address City[facility]/ZIP Co de Phone Number [facility] [address] [facility] Department [place] [address] * ECG 12 lead (08/03/2022 7:02 PM CDT) 08/03/2022 7:02 PM CDT Narrative [facility] - 08/04/2022 9:20 AM CDT Vent Rate: 106 bpm RR Interval: 562 msec [place] Interval: 175 msec QRS Duration: 100 msec QT Interval: 321 msec QTC Interval: 383 msec P-R-T Faison: 26 - 17 - 10 degrees SINUS TACHYCARDIA with PVC POSSIBLE LEFT ATRIAL ENLARGEMENT ??[-0.1mV P WAVE IN V1/V2] POSSIBLE LEFT VENTRICULAR HYPERTROPHY ??[VOLTAGE CRITERIA PLUS LAE OR QRS WIDENING] NONSPECIFIC ST \T\ T-WAVE ABNORMALITY ABNORMAL ECG Compared to prior EKG, PVCs are new T-wave changes are less evident Electronically Signed By: Felipe Prado MD us Joshua Fournier MD ECG ORDERABLES Final R esult Performing Organization Address [facility] Co de Phone Number [facility] documented in this encounter Visit Diagnoses Not on filedocumented in this encounter Care Teams Trenching Machine Operator Relationship Specialty Start Date End Date Judith Walton NP [address] [place] [address] PCP - General 05/26/20 documented as of this encounter
--- OUTSIDE RECORDS SUMMARY | 2024-04-12 13:21 | XMS_ITS | Encounter Summary ---
Author Organization [facility] Healthcare Address [address] [place] [id number] Care Team Providers Care Paper Supervisor Name Role Phone Judith Walton NP Primary Care Provider [phone] Reason for Visit * Reason Comments Shortness of Breath Encounter Details Date Type Department Care Team ([facility] Contact Info) Description 04/19/2021 1:09 AM ARMORING 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 - 04/19/2021 6:46 AM ARMORING 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 Emergency [facility] Department [address] [place] [address] Thao Bain MD [address] [place] [address] Exacerbation of asthma, unspecified asthma severity, unspecified whether persistent (Primary Dx) Discharge Disposition: Discharge to home [...] Sign Reading Time Taken Comments Blood Pressure 125/61 04/19/2021 6:30 AM ARMORING 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 Pulse 107 04/19/2021 6:30 AM ARMORING 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 Temperature 37.4 ??C (99.4 ??F) 04/19/2021 3:45 AM CS T Respiratory Rate 20 04/19/2021 6:30 AM ARMORING 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 Oxygen Saturation 98% 04/19/2021 6:30 AM ARMORING 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 Inhaled Oxygen Concentration - - Weight 98.9 kg (218 lb) 04/18/2021 9:42 PM ARMORING 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 Height 160 cm (5' 3 ) 04/18/2021 9:42 PM ARMORING 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 Body Mass Index 38.62 04/18/2021 9:42 PM ARMORING 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 documented in this encounter Discharge Diagnoses Diagnosis Unspecified asthma with (acute) exacerbation - UNSPECIFIED ASTHMA WITH (ACUTE) EXACERBATION documented in this encounter Discharge Instructions * Attachments The following attachments cannot be sent through Care Everywhere. * Asthma (General Information) (Chinese) documented in this encounter Medications at Time [...] capsule (10 mg total) by mouth nightly predniSONE (DELTASONE) 20 mg tablet Take 2 tablets (40 mg) by mouth daily for 5 days 10 tablet 04/19/2021 2 azithromycin (ZITHROMAX) 250 mg tablet Take 1 [...] 10/22/2020 3 documented as of this encounter Ordered Prescriptions Prescription Sig Dispense Quantity Refills Last Filled Start Date End Date azithromycin (ZITHROMAX) 250 mg tablet Take 1 tablet (250 mg total) by mouth daily Take first 2 tablets together, then 1 every day until finished. 6 tablet 04/19/2021 3 predniSONE (DELTASONE) 20 mg tablet Take 2 tablets (40 mg) by mouth daily for 5 days 10 tablet 04/19/2021 2 documented in this encounter Discharge Disposition Disposition Code Departure Means Destination Discharge to home or self care documented in this encounter ED Notes * Thao Bain MD - 04/19/2021 2:33 AM CST Triage Chief Complaint: Chief Complaint Patient presents with ??? Shortness of Breath Portions of the record may have been created with voice recognition software. Occasional wrong-word or '[id number]' substitutions may have occurred due to the inherent limitations of voice recognition software. Read the chart carefully and recognize, using context, where substitutions have occurred. H&P: Charity Alatorre is a 36 y.o. female with h/o chronic bronchitis/ asthma/ reactive airway disease, presents for shortness of breath and cough. She has had symptoms since April 11, 8 days ago. No fever. She just had cough and she reports she is coughing so much that she has a little bit of a sorethroat. It is mostly dry. She does have a little bit of a runny nose. The last time she felt like th is she had pneumonia. She does report feeling as though her respirations are ???tight?? but denieschest pain. No pleuritic chest pain. No vomiting or diarrhea. No fever. No leg swelling. She is on estradiol patch because of a history of a total hysterectomy so that she does not going to early menopause. She quit smoking 2 weeks ago. She was seen here in the ED for the same symptoms today and had a negative COVID test today. ROS: At least 10 systems reviewed and otherwise negative except as in the HPI. Past Medical History: Diagnosis Date ??? Anxiety ??? Asthma ??? Depression Past Surgical History: Procedure Laterality Date ??? HYSTERECTOMY ??? OTHER SURGICAL HISTORY neurostimulator placement surgery ??? WISDOM TOOTH EXTRACTION x4 HOME MEDICATIONS : albuterol HFA (PROVENTIL HFA,VENTOLIN HFA,PROAIR HFA) 90 mcg/actuation inhaler azithromycin (ZITHROMAX) 250 mg tablet cetirizine (ZyrTEC) 10 mg tablet escitalopram (LEXAPRO) 10 mg tablet fluconazole (DIFLUCAN) 150 mg tablet fluticasone propionate (FLONASE) 50 mcg/actuation nasal spray ibuprofen (ADVIL,MOTRIN) 600 mg tablet Lyllana 0.1 mg/24 hr montelukast (SINGULAIR) 10 mg tablet omeprazole (PriLOSEC) 10 mg capsule predniSONE (DELTASONE) 20 mg tablet Allergies Allergen Reactions ??? Latex Hives and Shortness of breath Family history: Social history: Quit smoking 2 weeks ago Nursing Notes Reviewed. Physical Exam: ED Triage Vitals Temp Pulse Resp BP SpO2 04/18/212 04/18/21214104/18/21214104/18/21214104/18/212141 37.3 ??C (99.1 ??F) 68 18 109/61 96 % Temp src Heart Rate Source Patient Position BP Location FiO2 (%) 04/18/212 04/19/21 0218 04/19/218 04/19/21 0630 -- Temporal Monitor Lying Left arm GENERAL APPEARANCE: Awake and alert. No acute distress. HEAD: Atraumatic. EYES: Sclera anicteric. EOMI. ENT: Tolerates saliva. NECK: Supple. Trachea midline. HEART: RRR. Radial pulses 2+. LUNGS: Respirations unlabored. Symmetrical lung sounds with wheezing scant throughout. No increasedwork of breathing. Bilateral expiratory wheezing. ABDOMEN: Soft. Non-tender. No guarding or rebound. EXTREMITIES: No acute deformities. No lower extremity edema. No palpable cord. Grossly symmetricalcalves. SKIN: Warm and dry. No acute rashes. NEUROLOGICAL: No gross facial drooping. Moves all 4 extremities spontaneously. Normal speech and mental status. No ataxia noted. PSYCHIATRIC: Normal mood. I have reviewed and interpreted all of the currently available lab results from this visit (if applicable): Labs Reviewed - No data to display Radiographs (if obtained): Report Reviewed: XR Chest Pa Lateral 2 Vw Final Result IMPRESSION: New, linear interstitial opacities of the medial left lung base, which may reflect atelectasis or developing infiltrate. Imaging follow-up to resolution recommended. ED course/MDM: Vitals: 04/19/21 0206 04/19/21 0218 04/19/21 0345 04/19/21 0630 BP: 108/71 110/53 125/61 BP Location: Left arm Patient Position: Lying HOB 30 degrees Pulse: 89 116 107 Resp: 17 18 20 Temp: 37.4 ??C (99.4 ??F) TempSrc: SpO2: 98% 99% 99% 98% Weight: Height: ED Course as of 04/19/21 0707 Time: 04/19 0155 Comment: Results for CHARITY ALATORRE ( ) as of 04/19/2021 01:54 04/18/2021 14:24 Influenza A RNA: Negative Influenza B RNA: Negative RSV RNA: Negative COVID-19 RNA: Negative By: Thao Bain MD MDM: Satting well on room air. No pleuritic chest pain. No hemoptysis. No leg pain. No previous DVT or PE. At this time, no indication for CT A/dimer or labs. This appears to be consistent with an asthma attack/exacerbation. COVID was negative earlier today. Chest x-ray concerning for possible early pneumonia. In the past she reports that azithromycin has helped with her symptoms. Will prescribe Z-Dick and course of steroids. After a breathing treatment she reports feeling very improved and would like to be discharged. Clinical Impression: 1. Exacerbation of asthma, unspecified asthma severity, unspecified whether persistent Disposition: Discharge (Please note that portions of this note may have been completed with a voice recognition program. Programming Engineer errors occur. Please contact me for any clarification.) Thao Bain MD 04/19/21 0709 RING 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 * Chuck Stevenson RN - 04/18/2021 9:39 PM CST Ambulate to triage c/o was seen here earlier today for shortness of breath and was given a breathing treatment and steroids but still feels like cant breath. States has been on going since the . RING 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 documented in this encounter Plan of Treatment Not on file documented as of this encounter Procedures Procedure Name Priority Date/Time Associated Diagnosis Comments XR CHEST PA LATERAL 2 VIEWS ED 04/19/2021 3:56 AM ARMORING 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 documented in this encounter Results * XR Chest Pa Lateral 2 Vw (04/19/2021 3:56 AM ARMORING 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) Anatomical Region Laterality Modality Body, Chest N/A Computed Radiogr aphy 04/19/2021 3:58 AM ARMORING 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 Narrative 04/19/2021 3:59 AM ARMORING 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 EXAM DESCRIPTION: ?? XR CHEST PA LATERAL 2 VIEWS REASON FOR STUDY: ?? sob ?? c/o was seen here earlier today for shortness of breath and was given a breathing treatment and steroids but still feels like cant breath. States has been on going since the . ??Hx of asthma, anxiety, current smoker ??Pt unable to remove nipple piercings ?? TECHNIQUE: ??Two-view examination of the chest is performed. COMPARISON: ??05/26/2020. FINDINGS: New, linear interstitial opacities of the medial left lung base. ??No pleural effusion or pneumothorax. Cardiomediastinal silhouette is normal. IMPRESSION: New, linear interstitial opacities of the medial left lung base, which may reflect atelectasis or developing infiltrate. ??Imaging follow-up to resolution recommended. THIS IS AN ELECTRONICALLY VERIFIED FINAL REPORT 04/19/2021 3:59 AM - Electronically signed by ??Mack Talbert M.D. RT: RT D: ??04/19/2021 3:59 AM T: ??04/19/2021 3:59 AM Report ID: [id number] Reading Location: ??[id number] Procedure Note Mack Talbert MD - 04/19/2021 EXAM DESCRIPTION: XR CHEST PA LATERAL 2 VIEWS REASON FOR STUDY: sob c/o was seen here earlier today for shortness of breath and was given a breathing treatment and steroids but still feels like cant breath. Stateshas been on going since the . Hx of asthma, anxiety, current smoker Pt unable to remove nipple piercings TECHNIQUE: Two-view examination of the chest is performed. COMPARISON: 05/26/2020. FINDINGS: New, linear interstitial opacities of the medial left lung base. Nopleural effusion or pneumothorax. Cardiomediastinal silhouette is normal. IMPRESSION: New, linear interstitial opacities of the medial left lung base, whichmay reflect atelectasis or developing infiltrate. Imaging follow-up toresolution recommended. THIS IS AN ELECTRONICALLY VERIFIED FINAL REPORT 04/19/2021 3:59 AM - Electronically signed by Mack Talbert M.D. RT: RT Report ID: [id number] Reading Location: [id number] Thao Bain MD IMG XR PROCEDURES Final Result documented in this encounter Visit Diagnoses Diagnosis Exacerbation of asthma, unspecified asthma severity, unspecified whether persistent- Primary documented in this encounter Administered Medications Inactive Administered Medications - up to 3 most recent administrations Medication Order MAR Action Action Date Dose Rate Site acetaminophen (TYLENOL) tablet 1,000 mg 1,000 mg, oral, Once, On Sun04/19/21 at 0241, For 1 dose Given 04/19/2021 2:58 AM ARMORING 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 1,000 mg albuterol 2.5 mg/0.5 mL nebulizer solution 20 mg 20 mg, nebulization, Continuous (security incident response specialist), Starting on Sun04/19/21 at 0157 Given 04/19/2021 2:06 AM ARMORING 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 20 mg benzonatate (TESSALON) capsule 100 mg 100 mg, oral, Once, On Sun04/19/21 at 0241, For 1 dose, Do not crush, chew, cut, dissolve, open or otherwise manipulate tablet/capsule., Indications: CoughIndications:Cough Given 04/19/2021 2:58 AM ARMORING 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 100 mg ibuprofen (ADVIL,MOTRIN) tablet 600 mg 600 mg, oral, Once, On Sun04/19/21 at 0241, For 1 dose, Do not crush, break, or open. Given 04/19/2021 2:58 AM ARMORING 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 600 mg ipratropium (ATROVENT) 0.02 % nebulizer solution 1.5 mg 1.5 mg, nebulization, Continuous, Starting on Sun04/19/21 at 0157 Given 04/19/2021 2:06 AM ARMORING 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 1.5 mg documented in this encounter Active and Recently Administered Medications Times are shown in ARMORING 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. Scheduled Medication Order 04/17/2021 04/18/2021 04/19/2021 acetaminophen (TYLENOL) tablet 1,000 mg (COMPLETED) 1,000 mg, oral, Once, On Sun04/19/21 at 0241, For 1 dose 0258 (Given - Provid er: Brian Bernal RN) benzonatate (TESSALON) capsule 100 mg (COMPLETED) 100 mg, oral, Once, On Sun04/19/21 at 0241, For 1 dose, Do not crush, chew, cut, dissolve, open or otherwise manipulate tablet/capsule., Indications: Cough 0258 (Given - Provid er: Brian Bernal RN) ibuprofen (ADVIL,MOTRIN) tablet 600 mg (COMPLETED) 600 mg, oral, Once, On Sun04/19/21 at 0241, For 1 dose, Do not crush, break, or open. 0258 (Given - Provid er: Brian Bernal RN) Continuous Medication Order 04/17/2021 04/18/2021 04/19/2021 albuterol 2.5 mg/0.5 mL nebulizer solution 20 mg 20 mg, nebulization, Continuous (security incident response specialist), Starting on Sun04/19/21 at 0157 0206 (Given - Provid er: Makenzie Esquivel, ANIBAL) ipratropium (ATROVENT) 0.02 % nebulizer solution 1.5 mg 1.5 mg, nebulization, Continuous, Starting on Sun04/19/21 at 0157 0206 (Given - Provid er: Makenzie Esquivel, SQUARE SHEAR OPERATOR) documented in this encounter Orders Nursing Count Last Ordered Date First Orde red Date CARDIO RESPIRATORY MONITORING 04/19/2021 CONTINUOUS PULSE OXIMETRY 1 04/19/2021 documented in this encounter Care Teams Paper Supervisor Relationship Specialty Start Date End Date Anton, Judith Salgado NP [address] [place] [place] [id number] PCP - General 05/26/20 documented as of this encounter
--- OUTSIDE RECORDS SUMMARY | 2024-04-12 13:21 | XMS_ITS | Encounter Summary ---
Author Organization [facility] Healthcare Address [address] [place] [address] Care Team Providers Care Senior Php Software Developer Name Role Phone Judith Walton NP Primary Care Provider Reason for Visit * Reason Comments Flank Pain Encounter Details Date Type Department Care Team ([facility] Contact Info) Description 01/17/2023 12:29 AM CDT - 01/17/2023 4:38 AM CDT Emergency [facility] Emergency Department 1 [place] [address] Thao Bain MD 1 [place] [address] Bilateral flank pain (Primary Dx); Lesion of left unga kidney Discharge Disposition: Discharge to home or self [...] Sign Reading Time Taken Comments Blood Pressure 130/81 01/16/2023 9:14 PM CDT Pulse 80 01/16/2023 9:14 PM CDT Temperature 36.3 ??C (97.3 ??F) 01/16/2023 9:14 PM CD T Respiratory Rate 18 01/16/2023 9:14 PM CDT Oxygen Saturation 98% 01/16/2023 9:14 PM CDT Inhaled Oxygen Concentration - - Weight 93 kg (205 lb) 01/16/2023 9:14 PM CDT Height 160 cm (5' 3 ) 01/16/2023 9:14 PM CDT Body Mass Index 36.31 01/16/2023 9:14 PM CDT documented in this encounter Discharge Instructions * Discharge Instructions* Thao Bain MD - 01/17/2023 4:17 AM CDT Possible 1.1 cm rounded lesion in the left midpole medulla. There is low suspicion for malignancy, likely normal medullary tissue. Recommend follow-up MRI versus CT renal mass protocol for confirmation. * Attachments The following attachments cannot be sent through Care Everywhere. * Flank Pain, Uncertain Cause (Slovak) documented in this encounter Medications at Time of Discharge albuterol HFA (PROVENTIL HFA,VENTOLIN HFA,PROAIR HFA) 90 mcg/actuation inhalerIndicatio ns:Acute Asthma Attack,mild Inhale 2 puffs every 6 (six) hours as needed for wheezing or shortness of breath atorvastatin (LIPITOR) 10 mg tabletIndication s:hyperlipidemia Take 1 tablet (10 mg total) by mouth nightly 12/31/2022 cetirizine (ZyrTEC) 10 mg tabletIndication s:Allergic Rhinitis Take 1 tablet (10 mg total) by mouth nightly fluticasone propionate (FLONASE) 50 mcg/actuation nasal sprayIndications [...] total) by mouth nightly at bedtime 07/18/2022 clonazePAM (KlonoPIN) 1 mg tablet Take 1 tablet (1 mg total) by mouth daily 04/27/2022 3 escitalopram (LEXAPRO) 20 mg tablet Take 1 tablet (20 mg total) by mouth daily 12/10/2022 3 estradioL (ESTRACE) 2 mg tablet Take 1 tablet (2 mg total) by mouth daily 08/02/2022 4 documented as of this encounter Discharge Disposition Disposition Code Departure Means Destination Comment s Discharge to home or self care documented in this encounter ED Notes * Thao Bain MD - 01/17/2023 12:43 AM CDT Triage Chief Complaint: Chief Complaint Patient presents with Flank Pain Portions of the record may have been created with voice recognition software. Occasional wrong-word or '[id number]' substitutions may have occurred due to the inherent limitations of voice recognition software. Read the chart carefully and recognize, using context, where substitutions have occurred. H&P: Ambar Alatorre is a 37 y.o. female with h/o total hysterectomy for pelvic pain 04/03/2018 at [facility], s/p bladder stimulator (InterStim) placement in 10/15/17 & phase 2 11/02/17 at [facility] in [facility] for urinary retention presents for bilateral flank pain with left greater than right for 1 day. 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 She does have vaginal irritation and dysuria. She feels nauseated but no vomiting. She woulda bowel movement initially was loose but then became normal. No black or bloody stool. No new partners. No concern for STI. Denies any vaginal bleeding but she did notice when she wiped that her urine had gross blood in it. No fever. No chest pain or shortness of breath. Triage Note 01/16 2111 Pt states she has noticed blood in her urine since this morning and bilateral flank painthis afternoon. States she was seen at an urgent care this morning and was told urine was negative for UTI but did have blood. Pt sees a urologist for pelvic floor problems and states she has a neurostimulator for urinary retention. Past medical/past surgical/meds: Past Medical History: Diagnosis Date Anxiety Asthma Depression Past Surgical History: Procedure Laterality Date HYSTERECTOMY OTHER SURGICAL HISTORY neurostimulator placement surgery WISDOM TOOTH EXTRACTION x4 HOME MEDICATIONS : atorvastatin (LIPITOR) 10 mg tablet escitalopram (LEXAPRO) 20 mg tablet ibuprofen (ADVIL,MOTRIN) 800 mg tablet albuterol HFA (PROVENTIL HFA,VENTOLIN HFA,PROAIR HFA) 90 mcg/actuation inhaler cetirizine (ZyrTEC) 10 mg tablet clonazePAM (KlonoPIN) 1 mg tablet estradioL (ESTRACE) 2 mg tablet fluticasone propionate (FLONASE) 50 mcg/actuation nasal spray lamoTRIgine (LaMICtal) 25 mg tablet montelukast (SINGULAIR) 10 mg tablet omeprazole (PriLOSEC) 10 mg capsule traZODone (DESYREL) 50 mg tablet Nursing Notes Reviewed. Physical Exam: ED Triage Vitals [01/16/232113] Temp Pulse Resp BP SpO2 36.3 ??C (97.3 ??F) 80 18 130/81 98 % Temp src Heart Rate Source Patient Position BP Location FiO2 (%) Temporal -- -- -- -- Height Height Method Weight Weight Method 1.6 m (5' 3 ) Stated 93 kg (205 lb) Stated GENERAL APPEARANCE: Awake and alert. No acute distress. HEAD: Atraumatic. EYES: Sclera anicteric. EOMI. ENT: Tolerates saliva. NECK: Supple. Trachea midline. HEART: RRR. Radial pulses 2+. LUNGS: Respirations unlabored. CTAB. ABDOMEN: Soft. No guarding or rebound. Mild left lower quadrant pain. No pain at McBurney's point or Porter's sign EXTREMITIES: No acute deformities. SKIN: Warm and dry. NEUROLOGICAL: No gross facial drooping. Moves all 4 extremities spontaneously. Normal speech and mental status. No ataxia noted. PSYCHIATRIC: Normal mood. Focused exam: External vaginal exam: Normal. Swabs obtained. I have reviewed and interpreted all of the currently available lab results from this visit (if applicable): Labs Reviewed URINALYSIS AND REFLEX TO MICROSCOPIC AND CULTURE - Abnormal Result Value Color, ur Straw Clarity, ur Clear Specific gravity, ur 1.005 pH, urine 5.5 Protein, ur ql Negative Glucose, ur ql Negative Ketones, ur Negative Bilirubin, ur Negative Blood, ur 2+ (*) Urobilinogen, ur <2.0 Nitrite, ur Negative Leukocyte esterase, ur Negative UA reflex comment Reflex to microscopic UA will be performed. CBC WITH AUTO DIFFERENTIAL - Abnormal WBC 10.6 (*) Hgb 12.5 Hct 36.5 Plt 276 MPV 10.2 RBC 4.14 MCV 88.2 MCH 30.2 MCHC 34.2 RDW CV 12.1 RDW SD 38.7 NRBC abs 0.00 GRAM STAIN YEAST Direct Specimen Exam Value: Stain: No Yeast or Fungal elements seen TRICHOMONAS ANTIGEN Trichomonas Ag Negative N. GONORRHOEAE/C. TRACHOMATIS AMPLIFICATION COMPREHENSIVE METABOLIC PANEL Sodium 138 Potassium, pl 4.0 Chloride 101 CO2 25 Anion gap 13 BUN 18 Creatinine 0.94 Glucose 96 Calcium 9.6 Bilirubin, total 0.3 Protein, pl 7.1 Albumin 4.8 Alk phos 65 ALT 17 AST 16 LIPASE Lipase 39 DIFFERENTIAL AUTO Neutrophil abs 6.3 Imm gran abs 0.0 Lymphocyte abs 3.3 Monocyte abs 0.7 Eosinophil abs 0.2 Basophil abs 0.1 Neutrophil pct 59.2 Imm gran pct 0.3 Lymphocyte pct 31.2 Monocyte pct 6.6 Eosinophil pct 2.1 Basophil pct 0.6 URINALYSIS, MICROSCOPIC ONLY WBC, ur 0-5 RBC, ur 0-2 Epithelial cells, squamous, ur 1-5 Culture Reflex Comment Value: Reflex conditions for urine culture (WBC >10) not met. EGFR eGFR 80 CREATINE KINASE (CK), TOTAL CK 54 Radiographs (if obtained): Report Reviewed: CT Abdomen Pelvis W Contrast Final Result EKG (if obtained): (All EKGs are interpreted by myself in the absence of a distributor of directories) Procedures Chart/outside records review shows: Reviewed outside records ED course/MDM: External chart review: (details typically [...] and listed above have been reviewed) Vitals: 01/16/23 2114 BP: 130/81 Pulse: 80 Resp: 18 Temp: 36.3 ??C (97.3 ??F) TempSrc: Temporal SpO2: 98% Weight: 93 kg (205 lb) Height: 160 cm (5' 3 ) ED Course as of 01/17/23 0459 Time: 01/17 42 Value: WBC, ur: 0-5 Comment: (Reviewed) By: Thao Bain MD Time: 01/17 42 Value: RBC, ur: 0-2 Comment: Negative for microscopic hematuria By: Thao Bain MD Time: 01/17 42 Value: Nitrite, ur: Negative Comment: (Reviewed) By: Thao Bain MD Time: 01/17 42 Value: Leukocyte esterase, ur: Negative Comment: No UTI By: Thao Bain MD Time: 01/17 42 Value: Blood, ur(!): 2+ Comment: Strange to have urinalysis positive for blood but no RBCs on microscopic, will add a CK By: Thao Bain MD Time: 01/17 43 Value: Creatinine: 0.94 Comment: Reassuring By: Thao Bain MD Time: 01/17 327 Value: CT Abdomen Pelvis W Contrast Comment: IMPRESSION: No acute findings in the abdomen or pelvis to explain patient's abdominal pain. Possible 1.1 cm rounded lesion in the left midpole medulla. There is low suspicion for malignancy, likely normal medullary tissue. Recommend follow-up MRI versus CT renal mass protocol for confirmation. KIDNEYS/URINARY TRACT: Kidneys enhance symmetrically. No hydronephrosis. Possible 1.1 cm rounded lesion in the left midpole medulla (image 49). Urinary bladder has a normal CT appearance. By: Thao Bain MD MDM: 37-year-old flank pain. UA showed positive blood, but no RBCs. CK negative for rhabdomyolysis.Renal function is normal. I discussed with her the finding of the possible lesion in the left kidney. She already has a urologist with whom she says she can follow-up easily. She did report some dysuria and vaginal discomfort, negative trich and yeast. GC chlamydia pending but the patient does not have a cervix or uterus making PID highly unlikely as the cause of her symptoms. UA not consistent with UTI. No evidence of hydronephrosis, on my exam she did have a little bit of left lower quadrant pain so on the differential would be diverticulitis. CT did not show diverticulitis. Patient takes estrogen. Doubt vulvar skin thinning has not vaginitis. No significant inflammation or rash on external exam. Discharge instructions: The patient and I have discussed results, diagnosis and or diagnostic uncertainty and the need for follow-up. We have discussed follow-up instructions and return precautions, to which the patient verbalized understanding and agreement. Clinical Impression: 1. Bilateral flank pain 2. Lesion of left unga kidney Disposition: Discharge (Please note that portions of this note may have been completed with a voice recognition program. Door Clamper errors occur. Please contact me for any clarification.) Thao Bain MD 01/17/23 0459 * Sherry Galarza RN - 01/16/2023 9:11 PM CDT Pt states she has noticed blood in her urine since this morning and bilateral flank pain this afternoon. States she was seen at an urgent care this morning and was told urine was negative for UTI butdid have blood. Pt sees a urologist for pelvic floor problems and states she has a neurostimulator for urinary retention. documented in this encounter Plan of Treatment Not on file documented as of this encounter Procedures Procedure Name Priority Date/Time Associated Diagnosis Comments N. GONORRHOEAE/C. TRACHOMATIS AMPLIFICATION STAT 01/17/2023 3:04 AM CDT GRAM STAIN YEAST STAT 01/17/2023 3:04 AM CDT TRICHOMONAS ANTIGEN STAT 01/17/2023 3 :[address] ABDOMEN PELVIS W CONTRAST ED 01/17/2023 2:34 AM CDT URINALYSIS AND REFLEX TO MICROSCOPIC AND CULTURE STAT 01/16/2023 9:36 PM CDT URINALYSIS, MICROSCOPIC ONLY STAT 01/16/2023 9:36 PM CDT EGFR STAT 01/16/2023 9:24 PM CDT DIFFERENTIAL AUTO STAT 01/16/2023 9:2 4 PM CDT CBC WITH AUTO DIFFERENTIAL STAT 01/16/2023 9:24 PM CDT LIPASE STAT 01/16/2023 9:24 PM CDT CREATINE KINASE (CK), TOTAL STAT 01/16/2023 9:24 PM CDT COMPREHENSIVE METABOLIC PANEL STAT 01/16/2023 9:24 PM CDT documented in this encounter Results * Trichomonas antigen Vaginal (01/17/2023 3:04 AM CDT) Pathologist [facility] Trichomonas Ag Negative Negative ABEL PEDRAZA ([place]) Vaginal 01/17/2023 3:04 AM CDT 01/17/2023 3:55 AM CDT Thao Bain MD LAB MICROBIOLOGY - GENER AL ORDERABLES Final Result JOSIAH PEDRAZA ([place]) 1 [facility] [employer] [place] [address] * Gram stain yeast Vaginal Vulva (01/17/2023 3:04 AM CDT) Pathologist [facility] Direct Specimen Exam Stain: No Yeast or Fungal elements seen JOSIAH McnallyJANEL[place]) Vaginal ([place]) 01/17/2023 3 :04 AM CDT 01/17/2023 4:17 AM CDT Thao Bain MD LAB MICROBIOLOGY - GENER AL ORDERABLES Final Result JOSIAH PEDRAZA ([place]) 1 [facility] [place] [address] * N. gonorrhoeae/C. trachomatis Amplification Vaginal (01/17/2023 3:04 AM CDT) C. trachomatis Not Detected Not Detected JOSIAH PEDRAZA ([place]) Comment:Testing performed by : [facility], [address] [place] [address]., [id number] N. gonorrhoeae Not Detected Not Detected JOSIAH PEDRAZA ([place]) Comment: Interpretive Data Testing performed by the [facility]. This assay detects Chlamydia trachomatis and Neisseria gonorrhoeae by nucleic acid amplification testing (NAAT). This test is approved by the [facility] Food and Drug Administration and the performance characteristics have been verified by the laboratory. The performance characteristics of this test have not been evaluated in women or individuals less than 16 years of age. Current Interpretive Data was last revised on 2022. Testing performed by: [facility], [address] [place] [address]., [id number] Vaginal (None) 01/17/2023 3: 04 AM CDT 01/17/2023 9:07 AM CDT Thao Bain MD LAB MICROBIOLOGY - [facility] AL ORDERABLES Final Result JOSIAH PEDRAZA ([place]) 1 [facility] Department [place] [address] * CT Abdomen Pelvis W Contrast (01/17/2023 2:34 AM CDT) Anatomical Region Laterality Modality Body N/A Computed Tomogra phy 01/17/2023 2:58 AM CDT Narrative 01/17/2023 3:11 AM CDT EXAM DESCRIPTION: ?? CT ABDOMEN PELVIS W CONTRAST REASON FOR STUDY: ?? Flank pain, kidney stone suspected, bilat flank pain, L>R, x 1day ?? C/o bilateral flank pain and blood in urine today. Left side worse than right. Pt sees a urologist for pelvic floor problems and states she has a neurostimulator for urinary retention. ?? Hx of hysterectomy and ovarian cysts ?? TECHNIQUE: CT scan of the abdomen and pelvis performed with intravenous and ?? without ??oral contrast using helical scanning technique with dynamic intravenous contrast injection. Reconstructed coronal and sagittal MPR images reviewed. All images stored on PACS. Automated exposure control was used as a dose optimization technique for this examination. CONTRAST TYPE/DOSE: ?? 100mL of IOVERSOL 350 MG IODINE/ML INTRAVENOUS SOLUTION ?? injected via ?? intravenous COMPARISON: ?? None REFERENCE: Per ACR white paper recommendations, unless otherwise specified no follow-up imaging is recommended for incidental renal and adrenal lesions per consensus recommendations based on imaging criteria. Further lab evaluation could be pursued based on clinical findings. FINDINGS: LOWER CHEST: ?? No significant pulmonary abnormalities. No effusion. LIVER: ?? Normal size. ??No identified cystic or solid masses. GALLBLADDER: ?? Normal BILE DUCTS: ?? No intrahepatic or extrahepatic ductal dilatation. SPLEEN: ?? Normal size. ??No focal lesions. PANCREAS: ?? No identified cystic or solid masses. No significant calcifications. No adjacent inflammation or peripancreatic fluid collections. Pancreatic duct not dilated. ?? ADRENALS: ?? Normal. KIDNEYS/URINARY TRACT: ?? Kidneys enhance symmetrically. ??No hydronephrosis. ?? Possible 1.1 cm rounded lesion in the left midpole medulla (image 49). ?? Urinary bladder has a normal CT appearance. GI: ?? No dilated bowel loops. No obvious wall thickening. ??Normal appendix. ?? No significant diverticular disease. PERITONEUM: ?? No ascites or free air. RETROPERITONEUM: ?? No mass or adenopathy. REPRODUCTIVE: ?? No significant abnormality. VASCULATURE: ?? No abdominal aortic aneurysm. MUSCULOSKELETAL: ?? No significant abnormality. OTHER: ?? Stimulator device in the left sacrum is seen. IMPRESSION: No acute findings in the abdomen or pelvis to explain patient's abdominal pain. Possible 1.1 cm rounded lesion in the left midpole medulla. ??There is low suspicion for malignancy, likely normal medullary tissue. ??Recommend follow-up MRI versus CT renal mass protocol for confirmation. THIS IS AN ELECTRONICALLY VERIFIED FINAL REPORT 01/17/2023 3:11 AM - Electronically signed by ??Antoine Blankenship M.D. BB: JOEY D: ??01/17/2023 3:10 AM T: ??01/17/2023 3:11 AM Report ID: [id number] Reading Location: ??[id number] Procedure Note Antoine Blankenship MD PhD - 01/17/2023 EXAM DESCRIPTION: CT ABDOMEN PELVIS W CONTRAST REASON FOR STUDY: Flank pain, kidney stone suspected, bilat flank pain,L>R, x 1day C/o bilateral flank pain and blood in urine today. Left side worse thanright. Pt sees a urologist for pelvic floor problems and states she has a neurostimulator for urinary retention. Hx of hysterectomy and ovariancysts TECHNIQUE: CT scan of the abdomen and pelvis performed with intravenousand without oral contrast using helical scanning technique with dynamic intravenous contrast injection. Reconstructed coronal and sagittal MPRimages reviewed. All images stored on PACS. Automated exposure control was usedas a dose optimization technique for this examination. CONTRAST TYPE/DOSE: 100mL of IOVERSOL 350 MG IODINE/ML INTRAVENOUSSOLUTION injected via intravenous COMPARISON: None REFERENCE: Per ACR white paper recommendations, unless otherwise specifiedno follow-up imaging is recommended for incidental renal and adrenal lesionsper consensus recommendations based on imaging criteria. Further labevaluation could be pursued based on clinical findings. FINDINGS: LOWER CHEST: No significant pulmonary abnormalities. No effusion. LIVER: Normal size. No identified cystic or solid masses. GALLBLADDER: Normal BILE DUCTS: No intrahepatic or extrahepatic ductal dilatation. SPLEEN: Normal size. No focal lesions. PANCREAS: No identified cystic or solid masses. No significant calcifications. No adjacent inflammation or peripancreatic fluidcollections. Pancreatic duct not dilated. ADRENALS: Normal. KIDNEYS/URINARY TRACT: Kidneys enhance symmetrically. Nohydronephrosis. Possible 1.1 cm rounded lesion in the left midpole medulla (image 49). Urinary bladder has a normal CT appearance. GI: No dilated bowel loops. No obvious wall thickening. Normalappendix. No significant diverticular disease. PERITONEUM: No ascites or free air. RETROPERITONEUM: No mass or adenopathy. REPRODUCTIVE: No significant abnormality. VASCULATURE: No abdominal aortic aneurysm. MUSCULOSKELETAL: No significant abnormality. OTHER: Stimulator device in the left sacrum is seen. IMPRESSION: No acute findings in the abdomen or pelvis to explain patient's abdominal pain. Possible 1.1 cm rounded lesion in the left midpole medulla. There is low suspicion for malignancy, likely normal medullary tissue. Recommendfollow-up MRI versus CT renal mass protocol for confirmation. THIS IS AN ELECTRONICALLY VERIFIED FINAL REPORT 01/17/2023 3:11 AM - Electronically signed by Antoine Lopezoff M.D. BB: JOEY Report ID: [id number] Reading Location: [id number] Thao Bain MD IMG CT PROCEDURES Final Result * Urinalysis, microscopic only (01/16/2023 9:36 PM CDT) WBC, ur 0-5 0 - 5 /HPF [facility] ([place]) RBC, ur 0-2 0 - 2 /HPF [facility] ([place]) Epithelial cells, squamous, ur 1-5 0 - 5 /HPF [facility] ([place]) Culture Reflex Comment Reflex conditions for urine culture (WBC >10) not met. [facility] ([place]) Urine 01/16/2023 9:36 PM CDT 01/16/2023 9:41 PM CDT Thao Bain MD LAB URINE ORDERABLES Fin al Result [facility] ([place]) 1 [facility] [place] [address] * (ABNORMAL) Urinalysis reflex to microscopic and culture Urine (01/16/2023 9:36 PM CDT) Color, ur Straw Yellow [facility] ([place]) Clarity, ur Clear Clear [facility] ([place]) Specific gravity, ur 1.005 1.003 - 1.030 [facility] ([place]) pH, urine 5.5 [facility] ([place]) Comment: Interpretive Data ? Urine pH is affected by diet, medications, systemic acid-base disturbances, and renal tubular function. ??pH may affect urinary stone formation. ??For example, urine pH below 6.0 may help reduce the tendency for calcium phosphate stones and pH greater than 6.0 may reduce the tendency for uric acid stone formation. Source: Damian charming charlie Current Interpretive Data was last revised on 2017 Protein, ur ql Negative Negative [facility] ([place]) Glucose, ur ql Negative Negative [facility] ([place]) Ketones, ur Negative Negative [facility] ([place]) Bilirubin, ur Negative Negative [facility] ([place]) Blood, ur 2+(A) Negative [facility] ([place]) Urobilinogen, ur <2.0 <2.0 mg/dL [facility] ([place]) Nitrite, ur Negative Negative [facility] ([place]) Leukocyte esterase, ur Negative Negative [facility] ([place]) UA reflex comment Reflex to microscopic UA will be performed. [facility] ([place]) Urine 01/16/2023 9:36 PM CDT 01/16/2023 9:41 PM CDT us Thao Bain MD LAB MICROBIOLOGY - GENER AL ORDERABLES Final Result Performing Organization Address City/[facility]/ZIP Co de Phone Number [facility] ([place]) 1 [facility] [place] [address] * Creatine kinase (CK), total (01/16/2023 9:24 PM CDT) CK 54 30 - 200 Units/L [facility] ([place]) Blood 01/16/2023 9:24 PM CDT 01/17/2023 1:02 AM CDT us Thao Bain MD LAB BLOOD ORDERABLES Fin al Result Performing Organization Address City/[facility] Co de Phone Number [facility] ([place]) 1 [facility] [place] [address] * eGFR (01/16/2023 9:24 PM CDT) eGFR 80 mL/min/1. 73 m2 [facility] ([place]) Comment: Interpretive Data Reference Interval Normal [...] interpretive data was last reviewed 2021. Blood 01/16/2023 9:24 PM CDT 01/16/2023 9:41 PM CDT us Thao Bain MD LAB BLOOD ORDERABLES Fin al Result [facility] ([place]) 1 [facility] [place] [address] * Differential, auto (01/16/2023 9:24 PM CDT) Neutrophil abs 6.3 1.7 - 6.5 K/cumm [facility] ([place]) Imm gran abs 0.0 0.0 - 0.1 K/cumm [facility] ([place]) Lymphocyte abs 3.3 0.8 - 3.3 K/cumm [facility] ([place]) Monocyte abs 0.7 0.2 - 0.8 K/cumm [facility] ([place]) Eosinophil abs 0.2 0.0 - 0.5 K/cumm [facility] ([place]) Basophil abs 0.1 0.0 - 0.1 K/cumm [facility] ([place]) Neutrophil pct 59.2 % [facility] ([place]) Comment: Interpretive Data Percent cell count reference [...] was last revised on 2017. Lymphocyte pct 31.2 % [facility] ([place]) Comment: Interpretive Data Percent cell count reference ranges are not reported, since discordance with absolute values may lead to misinterpretation of CBC data. Current Interpretive Data was last revised on 2017. Monocyte pct 6.6 % [facility] ([place]) Comment: Interpretive Data [...] revised on 2017. Basophil pct 0.6 % [facility] ([place]) Comment: Interpretive Data Percent cell count reference ranges are not reported, since discordance with absolute values may lead to misinterpretation of CBC data. Current Interpretive Data was last revised on 2017. Blood 01/16/2023 9:24 PM CDT 01/16/2023 9:41 PM CDT us Thao Bain MD LAB BLOOD ORDERABLES Fin al Result JOSIAH PEDRAZA ([place]) 1 [facility] Department [place] [address] * Lipase (01/16/2023 9:24 PM CDT) Lipase 39 10 - 99 Units/L [facility] ([place]) Blood (Blood, Venous) 01/16/2023 9:24 PM CDT 01/16/2023 9:41 PM CDT us Thao Bain MD LAB BLOOD ORDERABLES Fin al Result [facility] ([place]) 1 [facility] Department [place] [address] * Comprehensive metabolic panel (01/16/2023 9:24 PM CDT) Sodium 138 135 - 145 mmol/L [facility] ([place]) Potassium, pl 4.0 3.3 - 4.9 mmol/L [facility] ([place]) Chloride 101 97 - 110 mmol/L [facility] ([place]) CO2 25 22 - 32 mmol/L [facility] Anion gap 13 2 - 15 mmol/L [facility] BUN 18 6 - 25 mg/dL [facility] Creatinine 0.94 0.60 - 1.10 mg/dL [facility] ([facility]) Glucose 96 70 - 199 mg/dL [facility] ([facility]) [...] interpretive data was last revised 2022. Calcium 9.6 8.5 - 10.3 mg/dL [facility] ([facility]) Bilirubin, total 0.3 0.1 - 1.2 mg/dL [facility] ([facility]) Protein, pl 7.1 6.5 - 8.5 g/dL [facility] ([facility]) Albumin 4.8 3.5 - 5.0 g/dL [facility] ([place]) Alk phos 65 40 - 130 Units/L [facility] ([place]) ALT 17 7 - 45 Units/L [facility] AST 16 10 - 45 Units/L [facility] ([facility]) Blood (Blood, Venous) 01/16/2023 9:24 PM CDT 01/16/2023 9:41 PM CDT Thao Bain MD LAB BLOOD ORDERABLES Fin al Result [facility] ([facility]) 1 [facility] [place] [address] * (ABNORMAL) CBC with auto differential (01/16/2023 9:24 PM CDT) WBC 10.6(H) 3.8 - 9.9 K/cumm [facility] ([facility]) Hgb 12.5 11.9 - 15.5 g/dL [facility] ([place]) Hct 36.5 35.6 - 45.5 % [facility] ([place]) Plt 276 150 - 400 K/cumm [facility] ([facility]) MPV 10.2 9.1 - 12.3 fL [facility] ([facility]) RBC 4.14 3.90 - 5.20 M/cumm [facility] ([facility]) MCV 88.2 81.3 - 96.4 fL [facility] ([place]) MCH 30.2 27.1 - 33.3 pg [facility] ([place]) MCHC 34.2 32.3 - 35.7 g/dL [facility] ([place]) RDW CV 12.1 11.1 - 14.9 % [facility] ([place]) RDW SD 38.7 35.7 - 48.1 fL [facility] ([place]) NRBC abs 0.00 0.00 - 0.01 K/cumm [facility] ([facility]) Blood (Blood, Venous) 01/16/2023 9:24 PM CDT 01/16/2023 9:41 PM CDT Thao Bain MD LAB BLOOD ORDERABLES Fin al Result Performing Organization Address City/[facility]/ZIP Co de Phone Number [facility] ([facility]) 1 [facility] [place] [address] documented in this encounter Visit Diagnoses Diagnosis Bilateral flank pain- Primary Abdominal pain, unspecified site Lesion of left unga kidney Unspecified disorder of kidney and ureter documented in this encounter Administered Medications Inactive Administered Medications - up to 3 most recent administrations Medication Order MAR Action Action Date Dose Rate Site ioversoL (OPTIRAY 350) injection 100 mL 100 mL, intravenous, Once in imaging, contrast, Starting on Sun01/17/23 at 0232, For 1 dose Contrast Given 01/17/2023 2:34 AM CDT 100 mL ketorolac (TORADOL) 15 mg/mL injection 15 mg 15 mg, intravenous, Once, On Sun01/17/23 at 0135, For 1 dose, For Adult IV push, administer over 15 seconds, Indications: PainIndications:Pain Given 01/17/2023 2:00 AM CDT 15 mg ondansetron (ZOFRAN) injection 4 mg 4 mg, intravenous, Administer over 2 Minutes, Once, On Sun01/17/23 at 0135, For 1 dose, Indications: Nausea, VomitingIndications:Nausea, Vomiting Given 01/17/2023 1:59 AM CDT 4 mg ondansetron ODT (ZOFRAN-ODT) disintegrating tablet 4 mg 4 mg, oral, Once as needed, nausea, vomiting, If able to tolerate PO, Starting on Sun01/16/23 at 2119, For 1 dose, Do not administer if patient had 8mg administered within 6 hours of patient presenting to ED Do not administer if patient was formally diagnosed with prolonged QT syndrome sodium chloride 0.9% bolus 1,000 mL 1,000 mL, intravenous, at 1,000 mL/hr, Administer over 1 Hours, Once, On Sun01/17/23 at 0135, For 1 dose New Bag 01/17/2023 2:00 AM CDT 1,000 mL 1000 mL/hr documented in this encounter Discontinued Medications Medication Sig Discontinue Reason Start Date End Da te fluconazole (DIFLUCAN) 150 mg tabletIndications:Acute non-recurrent pansinusitis Take 1 tablet (150 mg total) by mouth as directed Take one tab now. Repeat in 7 days if symptoms persist. Other 11/19/2020 01/16/2023 azithromycin (ZITHROMAX) 250 mg tablet Take 1 tablet (250 mg total) by mouth daily Take first 2 tablets together, then 1 every day until finished. Other 04/19/2021 01/16/2023 ibuprofen (ADVIL,MOTRIN) 600 mg tablet Take 1 tablet (600 mg total) by mouth every 6 (six) hours as needed Therapy completed 11/24/2017 01/16/2023 escitalopram (LEXAPRO) 10 mg tablet Take 1 tablet (10 mg total) by mouth daily Therapy completed 01/16/2023 Lyllana 0.1 mg/24 hr UNWRAP AND APPLY 1 PATCH TO THE SKIN TWICE WEEKLY Therapy completed 10/22/2020 01/16/2023 documented as of this encounter Historical Medications * This list may reflect changes made after this encounter. ibuprofen (ADVIL,MOTRIN) 800 mg tabletIndications :Pain Take 1 tablet (800 mg total) by mouth 3 (three) times a day as needed for pain 01/01/2023 atorvastatin (LIPITOR) 10 mg tabletIndications :hyperlipidemia Take 1 tablet (10 mg total) by mouth nightly 12/31/2022 escitalopram (LEXAPRO) 20 mg tablet Take 1 tablet (20 mg total) by mouth daily 12/10/2022 02/16/2023 added in this encounter Active and Recently Administered Medications Times are shown in CDT. Scheduled Medication Order 01/15/2023 01/16/2023 01/17/2023 ketorolac (TORADOL) 15 mg/mL injection 15 mg (COMPLETED) 15 mg, intravenous, Once, On Sun01/17/23 at 0135, For 1 dose, For Adult IV push, administer over 15 seconds, Indications: Pain 0200 (Given - Provid er: Joshua Jimenez RN) ondansetron (ZOFRAN) injection 4 mg (COMPLETED) 4 mg, intravenous, Administer over 2 Minutes, Once, On Sun01/17/23 at 0135, For 1 dose, Indications: Nausea, Vomiting 0159 (Given - Provid er: Joshua Jimenez RN) sodium chloride 0.9% bolus 1,000 mL (COMPLETED) 1,000 mL, intravenous, at 1,000 mL/hr, Administer over 1 Hours, Once, On Sun01/17/23 at 0135, For 1 dose 0200 (New Bag - Prov ider: Joshua Jimneez RN)0330 (Stopped - Provider: Joshua Jimenez RN) PRN Medication Order 01/15/2023 01/16/2023 01/17/2023 ioversoL (OPTIRAY 350) injection 100 mL (COMPLETED) 100 mL, intravenous, Once in imaging, contrast, Starting on Sun01/17/23 at 0232, For 1 dose 0234 (Contrast Given - Provider: Khushbu Grimm, RT) ondansetron ODT (ZOFRAN-ODT) disintegrating tablet 4 mg 4 mg, oral, Once as needed, nausea, vomiting, If able to tolerate PO, Starting on Sun01/16/23 at 2119, For 1 dose, Do not administer if patient had 8mg administered within 6 hours of patient presenting to ED Do not administer if patient was formally diagnosed with prolonged QT syndrome documented in this encounter Orders Medications Ordered That Lyle ht Not Have Been Administered Count Last Ordered Date First Ordered Date ondansetron ODT (ZOFRAN-ODT) disintegrating tablet 4 mg 1 01/16/2023 IV Count Last Ordered Date First Orde red Date SALINE LOCK IV 1 01/16/2023 documented in this encounter Care Teams Senior Php Software Developer Relationship Specialty Start Date End Date Judith Walton NP [address] [place] [address] PCP - General 05/26/20 documented as of this encounter
--- OUTSIDE RECORDS SUMMARY | 2024-04-12 13:21 | XMS_ITS | Encounter Summary ---
Author Organization [facility] Healthcare Address [address] [place] [address] Care Team Providers Care Thermal Spray Operator Name Role Phone AntonPareshJudithyifan Salgado NP Primary Care Provider Encounter Details Date Type Department Care Team (Latest Contact Info) Description 07/04/2022 7:16 PM CDT - 07/04/2022 7:33 PM CDT Hospital Encounter [facility] Emergency, Room R Discharge Disposition: Discharge to home or self [...] on filedocumented in this encounter Care Teams Thermal Spray Operator Relationship Specialty Start Date End Date Judith Walton NP [address] [place] [address] PCP - General 05/26/20 documented as of this encounter
--- OUTSIDE RECORDS SUMMARY | 2024-04-12 13:21 | XMS_ITS | Encounter Summary ---
Author Organization [facility] Address [address] [place] [address] Care Team Providers Care Etl Software Engineer Name Role Phone AntonPareshJudithyifan Salgado NP Primary Care Provider [phone] Reason for Referral * MRI/CAT/PET Scan (Routine) - Closed Specialty Diagnoses / Procedures Referred By Contac t Referred To Contact Radiology Diagnoses Complex tear of medial meniscus of left knee as current injury, subsequent encounter Procedures CT Knee Left WO Contrast Bharathi Santana MD [address] [place] [id number] Phone: tel: fax: [address] [phone] Referral ID Status Reason Start Date Expiration Date Visits Re quested Visits Authorized [id number] Closed 11/07/2021 12/07/2022 1 1 Reason for Visit * MRI/CAT/PET Scan (Routine) - Closed Specialty Diagnoses / Procedures Referred By Contac t Referred To Contact Radiology Diagnoses Complex tear of medial meniscus of left knee as current injury, subsequent encounter Procedures CT Knee Left WO Contrast Bharathi Santana MD [address] [place] [id number] Phone: tel: fax: [address] [phone] Referral ID Status Reason Start Date Expiration Date Visits Re quested Visits Authorized [id number] Closed 11/07/2021 12/07/2022 1 1 Encounter Details Date Type Department Care Team (Late st Contact Info) Description 12/01/2021 7:04 AM CDT - 12/01/2021 11:59 PM CDT Hospital Encounter [facility] [address] [place] [address] Bharathi Santana MD [address] [place] [address] Complex tear of medial meniscus of left knee as current injury, subsequent encounter Discharge Disposition: Discharge to home or self [...] Procedure Name Priority Date/Time Associated Diagnosis Comments CT KNEE LEFT WO CONTRAST Schedule Routine, Read Routine (OP Routine) 12/01/2021 7:18 AM CDT Complex tear of medial meniscus of left knee as current injury, subsequent encounter documented in this encounter Results * CT Knee Left [...] PM T: ??12/01/2021 7:30 PM Report ID: [id number] Reading Location: ??[id number] Procedure Note Nakul Kunz MD - 12/01/2021 [...] Nakul Kunz M.D. MF: ALBA Report ID: [id number] Reading Location: [id number] Bharathi Santana MD IMG CT PROCEDURES Final Result documented in this encounter Visit Diagnoses Diagnosis Complex tear of medial meniscus of left knee as current injury, subsequent encounter documented in this encounter Care Teams Etl Software Engineer Relationship Specialty Start Date End Date Judith Walton NP [address] [place] [address] PCP - General 05/26/20 documented as of this encounter
--- OUTSIDE RECORDS SUMMARY | 2024-04-12 13:21 | XMS_ITS | Encounter Summary ---
Author Organization [facility] Healthcare Address [address] [place] [address] Care Team Providers Care Business Writer Name Role Phone Judith Walton NP Primary Care Provider Reason for Visit * Reason Comments Shortness of Breath Encounter Details Date Type Department Care Team ([facility] Contact Info) Description 04/18/2021 1:59 PM SEGMENT BLOCK LAYER - 04/18/2021 3:42 PM SEGMENT BLOCK LAYER Emergency [facility] Emergency Department 1 [place] [address] Sunny Sun MD [address] [place] [address] Mild intermittent asthma with exacerbation (Primary Dx) Discharge Disposition: Discharge to home [...] Sign Reading Time Taken Comments Blood Pressure 131/81 04/18/2021 1:22 PM SEGMENT BLOCK LAYER Pulse 63 04/18/2021 1:22 PM SEGMENT BLOCK LAYER Temperature 37.5 ??C (99.5 ??F) 04/18/2021 1:22 PM CS T Respiratory Rate 18 04/18/2021 1:22 PM SEGMENT BLOCK LAYER Oxygen Saturation 99% 04/18/2021 3:22 PM SEGMENT BLOCK LAYER Inhaled Oxygen Concentration - - Weight 98 kg (216 lb) 04/18/2021 1:22 PM SEGMENT BLOCK LAYER Height 165.1 cm (5' 5 ) 04/18/2021 1:22 PM SEGMENT BLOCK LAYER Body Mass Index 35.94 04/18/2021 1:22 PM SEGMENT BLOCK LAYER documented in this encounter Discharge Diagnoses Diagnosis Mild intermittent asthma with (acute) exacerbation - MILD INTERMITTENT ASTHMA WITH (ACUTE) EXACERBATION Contact with and (suspected) exposure to covid-19 - CONTACT WITH AND (SUSPECTED) EXPOSURE TO COVID-19 Nicotine dependence, cigarettes, uncomplicated - NICOTINE DEPENDENCE, CIGARETTES, UNCOMPLICATED documented in this encounter Discharge Instructions * Discharge Instructions* Sunny Sun MD - 04/18/2021 3:11 PM SEGMENT BLOCK LAYER Thank you for the opportunity to care for you today! You were evaluated for and diagnosed with a likely asthma exacerbation. You had a COVID test that was negative. You should follow-up with your primary doctor in the next week as needed. Return to the ED for fever, increased trouble breathing, or other concerns. You should use your inhalers as needed for trouble breathing. We sincerely hope you feel better soon! ENT BLOCK LAYER documented in this encounter Medications at Time [...] documented in this encounter ED Notes * Sunny Sun MD - 04/18/2021 2:02 PM CST HPI Chief Complaint Patient presents with ??? Shortness of Breath Patient is a 36-year-old woman with a history of asthma who presents with dyspnea, cough, and congestion. Onset several days ago. Denies fever, chills, chest pain, leg swelling, abdominal pain, nausea, vomiting, or other complaints. Vaccinated against COVID but several sick contacts. Patient History: There are no problems to display for this patient. Past Medical History: Diagnosis Date ??? Anxiety ??? Depression Past Surgical History: Procedure Laterality Date ??? HYSTERECTOMY ??? OTHER SURGICAL HISTORY neurostimulator placement surgery ??? WISDOM TOOTH EXTRACTION x4 Family History Problem Relation Age of Onset ??? Diverticulitis Mother ??? Hiatal hernia Mother ??? Stroke Father ??? Alzheimer's disease Father ??? Hypertension Father ??? Atrial fibrillation Father ??? Atrial fibrillation Father's Brother ??? Diabetes Maternal Grandmother Social History Tobacco Use ??? Smoking status: Current Every Day Smoker Packs/day: 0.50 ??? Smokeless tobacco: Never Used Vaping Use ??? Vaping Use: Never used Substance Use Topics ??? Alcohol use: Not on file ??? Drug use: Not on file Social History Social History Narrative ??? Not on file Review of Systems Review of Systems Constitutional: Negative for chills and fever. HENT: Positive for congestion. Negative for rhinorrhea and sore throat. Eyes: Negative for visual disturbance. Respiratory: Positive for cough and shortness of breath. Cardiovascular: Negative for chest pain. Gastrointestinal: Negative for abdominal pain, constipation, diarrhea, nausea and vomiting. Genitourinary: Negative for dysuria, frequency and urgency. Musculoskeletal: Negative for myalgias. Skin: Negative for rash. Neurological: Negative for seizures, syncope and headaches. Psychiatric/Behavioral: Negative for confusion. Physical Exam ED Triage Vitals [04/18/21 1322] Temp Pulse Resp BP SpO2 37.5 ??C (99.5 ??F) 63 18 131/81 100 % Temp src Heart Rate Source Patient Position BP Location FiO2 (%) Temporal -- -- -- -- Physical Exam Vitals and nursing note reviewed. Constitutional: General: She is not in acute distress. Appearance: She is not ill-appearing or diaphoretic. HENT: Head: Normocephalic and atraumatic. Mouth/Throat: Mouth: Mucous membranes are moist. Eyes: General: No scleral icterus. Extraocular Movements: Extraocular movements intact. Cardiovascular: Rate and Rhythm: Normal rate and regular rhythm. Pulmonary: Effort: Pulmonary effort is normal. No respiratory distress. Abdominal: General: There is no distension. Musculoskeletal: General: No swelling. Normal range of motion. Cervical back: Normal range of motion. Right lower leg: No edema. Left lower leg: No edema. Skin: General: Skin is warm and dry. Findings: No rash. Neurological: General: No focal deficit present. Mental Status: She is alert and oriented to person, place, and time. Mental status is at baseline. Psychiatric: Mood and Affect: Mood normal. Behavior: Behavior normal. [facility] Medical Decision Making Differential Diagnosis or Management Options: 36-year-old woman with a history of asthma who presents with dyspnea, cough, and congestion. Suspect asthma exacerbation secondary to viral syndrome including COVID-19. Doubt bacterial pneumonia. Doubt ACS, PE, or other emergent condition. Plan: COVID swab, bronchodilators, steroids, anticipatory guidance ED Course as of 04/18/211511 Time: 04/18 1509 Value: COVID-19 RNA: Negative Comment: (Reviewed) By: Sunny Sun MD Time: 04/18 1510 Comment: Feeling better. Remains well appearing. Will discharge with PCP follow- up. Return precautions given. By: Sunny Sun MD Final diagnoses: Mild intermittent asthma with exacerbation Sunny Sun MD 04/18/211511 ENT BLOCK LAYER * Loretta Irvin RN - 04/18/2021 1:21 PM CST Pt presents to ER with c/o SOB, cough and congestion. Pt has hx asthma and COPD. ENT BLOCK LAYER documented in this encounter Plan of Treatment Not on file documented as of this encounter Procedures Procedure Name Priority Date/Time Associated Diagnosis Comments INFLUENZA A/B, RSV, AND COVID-19 PCR Routine 04/18/2021 2:24 PM SEGMENT BLOCK LAYER documented in this encounter Results * Influenza A/B, RSV, and COVID-19 PCR Nasopharyngeal (04/18/2021 2:24 PM SEGMENT BLOCK LAYER) COVID-19 RNA Negative Negative [facility]) Influenza A RNA Negative Negative [facility] Influenza B RNA Negative Negative [facility] ([facility]) RSV RNA Negative Negative [facility] ([facility]) Comment: Interpretive data: This test is performed using the Cepheid Xpert Xpress CoV-2/Flu/RSV plus assay. This is [...] out infection. Interpretive Data last revised 2021. First COVID-19 test? No [facility]) Employeed in healthcare? No [facility] ([place]) status? No CE RNALEKSANDRA [facility] ([place]) Group care resident? No JOSIAH GILL) Hospitalized? No [facility] ([place]) Is patient in ICU? No C ERNALEKSANDRA GILL) Symptomatic as defined by CDC? Yes JOSIAH GILL) Nasopharyngeal 04/18/2021 2: 24 PM SEGMENT BLOCK LAYER 04/18/2021 2:28 PM SEGMENT BLOCK LAYER Narrative [facility] ([place]) - 04/18/2021 3:08 PM SEGMENT BLOCK LAYER Date of Symptom Onset->04/16/21 Reason for testing?->Symptomatic (not immunocompromised) Known exposure to confirmed or suspected COVID-19 case?->No What is the reason for testing?->Likely to be discharged (batch) us Sunny Sun MD LAB MICROBIOLOGY - GENERAL ORDERABLES Final Result [facility] ALEXANDERN) 1 [facility] [place] [address] documented in this encounter Visit Diagnoses Diagnosis Mild intermittent asthma with exacerbation- Primary Unspecified asthma, with exacerbation documented in this encounter Administered Medications Inactive Administered Medications - up to 3 most recent administrations Medication Order MAR Action Action Date Dose Rate Site dexAMETHasone (DECADRON) tablet 10 mg 10 mg, oral, Once, On Sun04/18/21 at 1423, For 1 dose Given 04/18/2021 2:31 PM SEGMENT BLOCK LAYER 10 mg ipratropium-albuteroL (DUO-NEB) 0.5-2.5 mg/3 mL nebulizer solution 3 mL 3 mL, nebulization, Once (correspondence school teacher), On Mon /3/22 at 1511, For 1 dose, Indications: Chronic Obstructive Pulmonary Disease with BronchospasmsIndications: Chronic Obstructive Pulmonary Disease with Bronchospasms Given 04/18/2021 3:22 PM SEGMENT BLOCK LAYER 3 mL terbutaline (BRETHINE) injection 0.25 mg 0.25 mg, subcutaneous, Once, On Sun04/18/21 at 1423, For 1 dose Given 04/18/2021 2:31 PM SEGMENT BLOCK LAYER 0.25 mg Left Lower Abdomen documented in this encounter Active and Recently Administered Medications Times are shown in SEGMENT BLOCK LAYER. Scheduled Medication Order 04/16/2021 04/17/2021 04/18/2021 dexAMETHasone (DECADRON) tablet 10 mg (COMPLETED) 10 mg, oral, Once, On Sun04/18/21 at 1423, For 1 dose 1431 (Given - Provid er: Polina Maynard RN) ipratropium-albuteroL (DUO-NEB) 0.5-2.5 mg/3 mL nebulizer solution 3 mL (COMPLETED) 3 mL, nebulization, Once (correspondence school teacher), On Sun04/18/21 at 1511, For 1 dose, Indications: Chronic Obstructive Pulmonary Disease with Bronchospasms 1522 (Given - Provid er: Allison Vang, CENTRAL SUPPLY ASSISTANT) terbutaline (BRETHINE) injection 0.25 mg (COMPLETED) 0.25 mg, subcutaneous, Once, On Sun04/18/21 at 1423, For 1 dose 1431 (Given - Provid er: Polina Maynard RN) documented in this encounter Additional Health Concerns Infection Onset Date Last Indicated Resolved Time COVID: Suspected 04/18/2021 04/18/2021 04/18/2021 3:09 PM SEGMENT BLOCK LAYER documented as of this encounter Care Teams Business Writer Relationship Specialty Start Date End Date Judith Walton NP [address] [place] [id number] PCP - General 05/26/20 documented as of this encounter
--- OUTSIDE RECORDS SUMMARY | 2024-04-12 13:21 | XMS_ITS | Encounter Summary ---
Author Organization [facility] Healthcare Address [address] [place] [address] Care Team Providers Care Housekeeper Child Care Name Role Phone Judith Walton NP Primary Care Provider [phone] Encounter Details Date Type Department Care Team (Late st Contact Info) Description 09/13/2022 Orders Only [facility] Cardiology [address] [place] [address] Laurita Wilkinson Social History Tobacco Use Types Packs/Day Years [...] on filedocumented in this encounter Care Teams Housekeeper Child Care Relationship Specialty Start Date End Date Judith Walton NP [address] [place] [address] PCP - General 05/26/20 documented as of this encounter
--- OUTSIDE RECORDS SUMMARY | 2024-04-12 13:21 | XMS_ITS | Encounter Summary ---
Author Organization [facility] Address [address] [facility] [address] [place] [address] Care Team Providers Care Payroll Auditor Name Role Phone Judith Walton NP Primary Care Provider [phone] Reason for Visit * Reason Comments COVID-19 EVALUATION [facility]-Ear pain, sinus pressure, no exp, vaccinated, Onset 07/07/21. OTC ibuprofen and saline wash. Had Covid 03/2020. Encounter Details Date Type Department Care Team ([facility] Contact Info) Description 07/09/2021 11:45 AM CDT Office Visit [facility] [address] [place] [id number] Veronique Gaona, INDUSTRIAL DESIGN ENGINEER [address] [place] [address] Non-recurrent acute suppurative otitis media of right ear without spontaneous rupture of tympanic membrane (Primary Dx); Ear pain, bilateral Social History Tobacco Use Types Packs/Day Years Used Date Smoking Tobacco: Every Day Cigarettes Smokeless Tobacco: Never Tobacco Cessation:Ready to Q uit: Yes; Counseling Given: Yes Comments No Sex and Gender Information Value Date Recorded Sex Assigned at Not on file Legal Sex Female 11:20 PM CDT Gender Identity Not on file Sexual Orientation Not on file documented as of this encounter Last Filed Vital Signs Vital Sign Reading Time Taken Comments Blood Pressure 96/66 07/09/2021 11:44 AM CDT Pulse 58 07/09/2021 11:44 AM CDT Temperature 36.5 ??C (97.7 ??F) 07/09/2021 11:44 AM C DT Respiratory Rate 20 07/09/2021 11:44 AM CDT Oxygen Saturation 98% 07/09/2021 11:44 AM CDT Inhaled Oxygen Concentration - - Weight 96.4 kg (212 lb 9.6 oz) 07/09/2021 11:44 AM CDT Height 160 cm (5' 3 ) 07/09/2021 11:44 AM CDT Body Mass Index 37.66 07/09/2021 11:44 AM CDT documented in this encounter Patient Instructions * Patient Instructions* Veronique Gaona NP - 07/09/2021 11:45 AM CDT You can take Tylenol/Motrin for pain/fever Complete any medications as prescribed Azithromycin Prednisone 20 mg daily early in the day with food for 5 days. You can use warm moist heat to decrease pain Sudafed or Flonase as needed for fluid in ears Follow up w PCP if you are not getting better in 3 days Increase water intake. documented in this encounter Ordered Prescriptions Prescription Sig Dispense Quantity Refills Last Filled Start Date End Date predniSONE (DELTASONE) 20 mg tabletIndications: Non-recurrent acute suppurative otitis media of right ear without spontaneous rupture of tympanic membrane Take 1 tablet (20 mg) by mouth daily for 5 days With food early in the day to avoid insomnia 5 tablet 07/09/2021 2 azithromycin (ZITHROMAX) 250 mg tabletIndications: Non-recurrent acute suppurative otitis media of right ear without spontaneous rupture of tympanic membrane Take 2 tabs (500 mg) by mouth today, than 1 daily for 4 days. 6 tablet 07/09/2021 2 documented in this encounter Progress Notes * Veronique Gaona NP - 07/09/2021 11:45 AM CDT Images from the original note were not included. Subjective/Objective Patient ID: Ambar Alatorre is a 36 y.o. female. Chief Complaint COVID-19 EVALUATION ([facility]-Ear pain, sinus pressure, no exp, vaccinated, Onset 07/07/21. OTC ibuprofenand saline wash. Had Covid 03/2020. ) Ambar says that she is prone to sinus infections and bronchitis. Her ears hurt so bad and she has pain pointing to maxillary and frontal sinuses. In April, she asked for treatment antibiotics in the ER but was told viral, then says she developed sinus infection and pneumonia. Her physician keeps her on albuterol inhaler as needed and montelukast daily for asthma. She does not want to be swabbed for any testing today. Review of Systems Constitutional: Positive for fatigue. Negative for fever. HENT: Positive for congestion, ear pain and sinus pressure. Negative for sore throat. Respiratory: Negative for cough, chest tightness and shortness of breath. Cardiovascular: Negative for chest pain. Gastrointestinal: Negative for abdominal pain, diarrhea, nausea and vomiting. Skin: Negative for color change. Neurological: Negative for dizziness. Hematological: Negative for adenopathy. Psychiatric/Behavioral: Negative for confusion. Physical Exam Vitals reviewed. Constitutional: Appearance: Normal appearance. She is well-developed. She is not ill-appearing or diaphoretic. HENT: Head: Normocephalic. Right Ear: Ear canal and external ear normal. No decreased hearing noted. There is no impacted cerumen. No mastoid tenderness. Tympanic membrane is not perforated, erythematous or bulging. Left Ear: Hearing, ear canal and external ear normal. No decreased hearing noted. There is no impacted cerumen. No mastoid tenderness. Tympanic membrane is not perforated, erythematous or bulging. Ears: Comments: Both TMs are intact with fluid pressure. Right TM is bright red over 1/2 of its surface. Nose: No congestion or rhinorrhea. Right Sinus: Maxillary sinus tenderness and frontal sinus tenderness present. Left Sinus: Maxillary sinus tenderness and frontal sinus tenderness present. Mouth/Throat: Lips: [place]. Mouth: Mucous membranes are moist. No oral lesions. Dentition: Normal dentition. Palate: No lesions. Pharynx: Oropharynx is clear. Posterior oropharyngeal erythema present. No oropharyngeal exudate. Tonsils: No tonsillar abscesses. Eyes: General: Lids are normal. Extraocular Movements: Extraocular movements intact. Conjunctiva/sclera: Conjunctivae normal. Neck: Thyroid: No thyroid mass or thyromegaly. Trachea: Trachea and phonation normal. Cardiovascular: Rate and Rhythm: Normal rate and regular rhythm. Pulses: Normal pulses. Heart sounds: Normal heart sounds. Pulmonary: Effort: Pulmonary effort is normal. Breath sounds: Normal breath sounds. Musculoskeletal: Cervical back: Normal range of motion. Lymphadenopathy: Cervical: Cervical adenopathy present. Skin: General: Skin is warm and dry. Neurological: Mental Status: She is alert. Psychiatric: Attention and Perception: Attention normal. Behavior: Behavior is cooperative. Vitals: 07/09/21 1144 BP: 96/66 BP Location: Left arm Patient Position: Sitting Pulse: 58 Resp: 20 Temp: 36.5 ??C (97.7 ??F) TempSrc: Oral SpO2: 98% Weight: 96.4 kg (212 lb 9.6 oz) Height: 160 cm (5' 3 ) Assessment/Plan You can take Tylenol/Motrin for pain/fever Complete any medications as prescribed Azithromycin Prednisone 20 mg daily early in the day with food for 5 days. You can use warm moist heat to decrease pain Sudafed or Flonase as needed for fluid in ears Follow up w PCP if you are not getting better in 3 days Increase water intake. Diagnoses and all orders for this visit: Non-recurrent acute suppurative otitis media of right ear without spontaneous rupture of tympanic membrane (Primary) - azithromycin (ZITHROMAX) 250 mg tablet; Take 2 tabs (500 mg) by mouth today, than 1 daily for 4 days. - predniSONE (DELTASONE) 20 mg tablet; Take 1 tablet (20 mg) by mouth daily for 5 days With food early in the day to avoid insomnia Ear pain, bilateral Disposition- Discussed medications dosages, usage & potential side effects. Risks and interactions reviewed with patient. Indications for testing reviewed. Patient has been instructed to follow up w PCP or go to ER for any signs or symptoms that are of concern or worsening. Patient verbalizes understanding. The patient was given the opportunity to ask all questions and to have all questions answered. Patient is in agreement with the plan of care Veronique Gaona NP documented in this encounter Plan of Treatment Not on file documented as of this encounter Visit Diagnoses Diagnosis Non-recurrent acute suppurative otitis media of right ear without spontaneous rupture of tympanic membrane- Primary Ear pain, bilateral documented in this encounter Care Teams Payroll Auditor Relationship Specialty Start Date End Date Walton, Judith Salgado NP [address] [place] [address] PCP - General 05/26/20 documented as of this encounter
--- OUTSIDE RECORDS SUMMARY | 2024-04-12 13:21 | XMS_ITS | Encounter Summary ---
Author Organization [facility] Address [address] [facility] [address] [place] [address] Care Team Providers Care Sap Pp Consultant Name Role Phone AntonPareshJudithyifan Salgado NP Primary Care Provider [phone] Encounter Details Date Type Department Care Team (Late st Contact Info) Description 10/15/2021 Telephone [facility] [place] [address] [place] [id number] Saranya Abdullahi MA Social History Tobacco Use Types Packs/Day Years Used Date Smoking Tobacco: Every Day Cigarettes Smokeless Tobacco: Never Comments No Sex and Gender Information Value Date Recorded Sex Assigned at Not on file Legal Sex Female 11:20 PM CDT Gender Identity Not on file Sexual Orientation Not on file documented as of this encounter Miscellaneous Notes * Telephone Encounter - Saranya Abdullahi MA - 10/15/2021 9:55 AM CDT Patient is aware of the results and has no further questions at this time. * Telephone Encounter - Saranya Abdullahi MA - 10/15/2021 9:07 AM CDT Left message for patient to call back to discuss covid results. * Telephone Encounter - Saranya Abdullahi MA - 10/15/2021 9:07 AM CDT ----- Message from Melania Frias NP sent at 10/15/2021 7:26 AM CDT ----- Please notify patient of negative COVID-19 test. If patient was symptomatic, patient should continue to self isolate until at least 5 days have passed since symptom onset and they have been fever free without the use of fever reducing medications for at least 24 hours. documented in this encounter Plan of Treatment Not on file documented as of this encounter Visit Diagnoses Not on filedocumented in this encounter Additional Health Concerns Infection Onset Date Last Indicated Resolved Time COVID: Suspected 10/14/2021 10/14/2021 10/15/2021 3:05 AM CDT COVID: Suspected 10/14/2021 10/14/2021 10/15/2021 6:08 AM CDT documented as of this encounter Care Teams Sap Pp Consultant Relationship Specialty Start Date End Date Judith Waltno NP [address] [place] [address] PCP - General 05/26/20 documented as of this encounter
--- OUTSIDE RECORDS SUMMARY | 2024-04-12 13:21 | XMS_ITS | Encounter Summary ---
Author Organization [facility] Address [address] [place] [address] Phone Care Team Providers Care National Sales Manager Name Role Phone Judith Walton NP Primary Care Provider [phone] Encounter Details Date Type Department Care Team (Late st Contact Info) Description 01/17/2023 Telephone [facility] [place], [place] [id number] Fred Pierre Social History Tobacco Use Types Packs/Day Years Used Date Smoking Tobacco: Former Cigarettes Smokeless Tobacco: Never Comments No Sex and Gender Information Value Date Recorded Sex Assigned at Not on file Legal Sex Female 11:20 PM CDT Gender Identity Not on file Sexual Orientation Not on file documented as of this encounter Miscellaneous Notes * Telephone Encounter - Fred Pierre - 01/17/2023 11:11 AM CDT Date: 01/17/2023 Reason for Call: patient called for a hospital follow up with Dr timmons and his schedule is scheduling To next year . Is their something sooner to offer patient Patient Provider:[facility] Medical[facility] Information: Outcome/Plan: documented in this encounter Plan of Treatment Not on file documented as of this encounter Visit Diagnoses Not on filedocumented in this encounter Care Teams National Sales Manager Relationship Specialty Start Date End Date Judith Walton NP [address] [place] [address] PCP - General 05/26/20 documented as of this encounter
--- OUTSIDE RECORDS SUMMARY | 2024-04-12 13:21 | XMS_ITS | Encounter Summary ---
Author Organization [facility] Address [address] [place] [address] Care Team Providers Care Radiation Technician Name Role Phone Judith Dominguez NP Primary Care Provider [phone] Reason for Referral * Cardiology (Routine) - Closed Specialty Diagnoses / Procedures Referred By Rkac t Referred To Contact Diagnoses Abnormal electrocardiogram (ECG) (EKG) Procedures 48 HR Holter Monitor Judith Dominguez NP [address] [place] [address] Phone: tel: fax: [address] [phone] Referral ID Status Reason Start Date Expiration Date Visits Re quested Visits Authorized [id number] Closed 07/24/2022 08/23/2023 1 1 Reason for Visit * Cardiology (Routine) - Closed Specialty Diagnoses / Procedures Referred By Contac t Referred To Contact Diagnoses Abnormal electrocardiogram (ECG) (EKG) Procedures 48 HR Holter Monitor Judith Dominguez NP [address] [place] [address] Phone: tel: fax: [address] [phone] Referral ID Status Reason Start Date Expiration Date Visits Re quested Visits Authorized [id number] Closed 07/24/2022 08/23/2023 1 1 Encounter Details Date Type Department Care Team (Latest Contact Info) Description 08/01/2022 8:30 AM CDT - 08/01/2022 11:59 PM CDT Hospital Encounter [facility] [address] [place] [address] Abnormal electrocardiogram (ECG) (EKG) Discharge Disposition: Discharge to home or self [...] Procedure Name Priority Date/Time Associated Diagnosis Comments HOLTER MONITOR 48 HR Routine 08/01/2022 9:14 AM CDT Abnormal electrocardiogram (ECG) (EKG) documented in this encounter Results * 48 HR Holter Monitor (08/01/2022 9:14 AM CDT) Anatomical Region Laterality Modality Electrocardiogra phy 08/01/2022 8:30 AM CDT Narrative 08/07/2022 8:46 AM CDT [address] [address] HOLTER MONITOR Patient Name: CHARITY MCCONNELL L : 1985 Study Date: 08/01/2022 8:30:00 AM Gender: F Tech: Ref.Provider: JUDITH DOMINGUEZ Height(Cm): BSA: Weight(Kg): Order Provider: JUDITH DOMINGUEZ - Procedures: Holter Report: Holter Monitor Report. Indications: Abnormal ECG R94.31. Findings: Protocol: Recording Duration (Ordered): [id number]. Date Recorded: 2022-08-01 08:30:00. - Conclusions: 1. Predominant rhythm is normal sinus rhythm [...] patient recorded no symptoms during the study. Electronically Signed By: Dr Mack Foster 2022-08-07 08:46:51 CDT CC: CC: Procedure Note Mack Foster MD - 08/07/[address] [address] HOLTER MONITOR Patient Name: CHARITY MCCONNELL LPatiemark ID: [id number] : [id number] Date: 08/01/2022 8:30:00 AM Gender: FAccession #: [id number] Tech: Ref.Provider: JUDITH DOMINGUEZ Height(Cm): BSA: Weight(Kg): Order Provider: JUDITH DOMINGUEZ - Procedures: Holter Report: Holter Monitor Report. Indications: Abnormal ECG R94.31. Findings: Protocol: Recording Duration (Ordered): [id number]. Date Recorded: 2022-08-01 08:30:00. - Conclusions: 1. Predominant rhythm is normal sinus rhythm with a minimum heart rate of46 beats per minute in sinus and a maximum heart rate of 123 beats per minute also insinus. Total monitoring time of 2 days. 2. Heart rate and rate variability is appropriate. 3. No prolonged pauses. 4. Rare PACs with only 8 PACs amounting to less than 0.01% of totalbeats. 5. Rare PVCs with only 58 PVCs corresponding to 0.03% of total beats. 6. The patient recorded no symptoms during the study. Electronically Signed By: Dr Mack Foster 2022-08-07 08:46:51 CDT CC: CC: Judith Dominguez NP CV CARDIAC SERVICES PROCEDUR ES Final Result documented in this encounter Visit Diagnoses Diagnosis Abnormal electrocardiogram (ECG) (EKG) documented in this encounter Care Teams Radiation Technician Relationship Specialty Start Date End Date Judith Dominguez NP [address] [place] [address] PCP - General 05/26/20 documented as of this encounter
--- OUTSIDE RECORDS SUMMARY | 2024-04-12 13:21 | XMS_ITS | Encounter Summary ---
Author Organization [facility] Address [address] [place] [address] Care Team Providers Care Starch Dumper Name Role Phone Judith Walton NP Primary Care Provider [phone] Encounter Details Date Type Department Care Team (Late st Contact Info) Description 11/30/2021 Telephone [facility] [address] [place] [address] Saranya Butts RT Social History Tobacco Use Types Packs/Day Years Used Date Smoking Tobacco: Every Day Cigarettes Smokeless Tobacco: Never Comments No Sex and Gender Information Value Date Recorded Sex Assigned at Not on file Legal Sex Female 11:20 PM CDT Gender Identity Not on file Sexual Orientation Not on file documented as of this encounter Miscellaneous Notes * Telephone Encounter - Saranya Butts RT - 11/30/2021 10:37 AM CDT No answer documented in this encounter Plan of Treatment Not on file documented as of this encounter Visit Diagnoses Not on filedocumented in this encounter Care Teams Starch Dumper Relationship Specialty Start Date End Date Judith Walton NP [address] [place] [address] PCP - General 05/26/20 documented as of this encounter
--- OUTSIDE RECORDS SUMMARY | 2024-04-12 13:21 | XMS_ITS | Encounter Summary ---
Author Organization [facility] Address [address] [place] [address] Care Team Providers Care Manager Of Care Name Role Phone Judith Walton NP Primary Care Provider [phone] Reason for Visit * Reason Comments COVID-19 EVALUATION RCC- Bilateral ear p ain and fullness, headache, and congestion. Onset 09/30/21, no exp, vaccinated, Covid hx 03/2020. OTC Allergy meds. Encounter Details Date Type Department Care Team (Late st Contact Info) Description 10/14/2021 2:45 PM CDT Office Visit [facility] [address] [place] [address] Corine Green, BIOSTATISTICS MANAGER [address] [place] [address] Acute pansinusitis, recurrence not specified (Primary Dx); Pharyngitis, unspecified etiology; Dysfunction of both eustachian tubes Social History Tobacco Use Types Packs/Day Years [...] Sign Reading Time Taken Comments Blood Pressure 106/74 10/14/2021 2:55 PM CDT Pulse 84 10/14/2021 2:55 PM CDT Temperature 36.1 ??C (97 ??F) 10/14/2021 2:55 PM CDT Respiratory Rate 18 10/14/2021 2:55 PM CDT Oxygen Saturation 98% 10/14/2021 2:55 PM CDT Inhaled Oxygen Concentration - - Weight 94.9 kg (209 lb 3.2 oz) 10/14/2021 2:55 P M CDT Height 160 cm (5' 3 ) 10/14/2021 2:55 PM CDT Body Mass Index 37.06 10/14/2021 2:55 PM CDT documented in this encounter Patient Instructions * Patient Instructions* Corine Green NP - 10/14/2021 3:18 PM CDT Take steroids as prescribed for fluid behind your ears Continue your allergy regimen Sudafed will also help with fluid Nasal saline rinses like the neti pot Steams showers Follow up in one week with your PCP if you are not getting better documented in this encounter Ordered Prescriptions Prescription Sig Dispense Quantity Refills Last Filled Start Date End Date amoxicillin-clavul anate (AUGMENTIN) 875-125 mg per tablet Take 1 tablet by mouth 2 (two) times a day for 10 days 20 tablet 10/14/2021 2 methylPREDNISolone (MEDROL DOSEPACK) 4 mg Dosepack Take as directed on package. 21 tablet 10/14/2021 2 documented in this encounter Progress Notes * Corine Green NP - 10/14/2021 2:45 PM CDT Images from the original note were not included. Patient ID: Ambar Alatorre is a 36 y.o. female followed by Judith Walton NP Patient was wearing the following PPE: mask. Provider was wearing the following PPE: mask, gown, and gloves. Chief Complaint Patient presents with ??? COVID-19 EVALUATION RCC- Bilateral ear pain and fullness, headache, and congestion. Onset 09/30/21, no exp, vaccinated, Covid hx 03/2020. OTC Allergy meds. Patient presents with bilateral ear pain and fullness, headache and congestion. Sx started 09/30. She has been taking OTC allergy medications. Review of Systems HENT: Positive for congestion and ear pain. Respiratory: Negative for cough. Cardiovascular: Negative for chest pain. Neurological: Positive for headaches. Social History Tobacco Use Smoking Status Current Every Day Smoker ??? Packs/day: 0.10 ??? Types: Cigarettes Smokeless Tobacco Never Used Vitals: 10/14/21 1455 BP: 106/74 BP Location: Left arm Patient Position: Sitting Pulse: 84 Resp: 18 Temp: 36.1 ??C (97 ??F) TempSrc: Temporal SpO2: 98% Weight: 94.9 kg (209 lb 3.2 oz) Height: 160 cm (5' 3 ) Recent Results (from the past 24 hour(s)) POCT rapid strep A Collection Time: 10/14/21 3:19 PM Result Value Ref Range Rapid Strep A, POC Negative Physical Exam Constitutional: Appearance: Normal appearance. She is obese. HENT: Right Ear: Hearing, ear canal and external ear normal. A middle ear effusion is present. Left Ear: Hearing, ear canal and external ear normal. A middle ear effusion is present. Nose: Congestion present. Mouth/Throat: Mouth: Mucous membranes are moist. Pharynx: Oropharyngeal exudate and posterior oropharyngeal erythema present. Tonsils: Tonsillar exudate present. Eyes: Conjunctiva/sclera: Conjunctivae normal. Cardiovascular: Rate and Rhythm: Normal rate and regular rhythm. Heart sounds: Normal heart sounds. Pulmonary: Effort: Pulmonary effort is normal. Breath sounds: Normal breath sounds. Musculoskeletal: General: Normal range of motion. Cervical back: Normal range of motion and neck supple. Skin: General: Skin is warm and dry. Neurological: Mental Status: She is alert. Psychiatric: Mood and Affect: Mood normal. Behavior: Behavior normal. Assessment/Plan Take steroids as prescribed for fluid behind your ears Continue your allergy regimen Sudafed will also help with fluid Nasal saline rinses like the neti pot Steams showers Follow up in one week with your PCP if you are not getting better Diagnoses and all orders for this visit: Acute pansinusitis, recurrence not specified (Primary) Pharyngitis, unspecified etiology - COVID-19 Coronavirus RNA Nasopharyngeal; Future - POCT rapid strep A - Throat culture Throat; Future Dysfunction of both eustachian tubes Other orders - methylPREDNISolone (MEDROL DOSEPACK) 4 mg Dosepack; Take as directed on package. - amoxicillin-clavulanate (AUGMENTIN) 875-125 mg per tablet; Take 1 tablet by mouth 2 (two) times aday for 10 days Lungs CTA, low suspicion for pneumonia at this time. Will recommend supportive care for symptoms with f/u precautions including signs/symptoms warranting ER evaluation. ??? Discussed home self-care, follow up needs, and signs and symptoms that warrant immediate medical attention/ER evaluation including worsening fever, increased shortness of breath, severe N/V/D, orany other worrisome symptoms ??? Reviewed isolation/quarantine protocols ??? Discussed symptomatic relief of symptoms ??? Advised to rest and increase oral fluid intake ??? Advised to stay out of work and work release given explaining when patient can return to work Orders Placed This Encounter Procedures ??? COVID-19 Coronavirus RNA Nasopharyngeal Standing Status: Future Standing Expiration Date: 10/14/2022 Order Specific Question: Is the patient experiencing any symptoms consistent with COVID (eg. Fever,cough, shortness of breath)? Answer: Yes Order Specific Question: What is the reason for testing? Answer: Symptoms of COVID-19 in low-risk group (Batched) Order Specific Question: Date of Symptom Onset Answer: 09/30/2021 Order Specific Question: Is the patient hospitalized? Answer: No Order Specific Question: Is the patient admitted to an ICU? Answer: No Order Specific Question: Is this the first COVID-19 test for this patient? Answer: No Order Specific Question: Does the patient currently work in a healthcare facility with direct patient contact? Answer: No Order Specific Question: Is the patient a resident of a congregate care or living setting? Answer: No Order Specific Question: ? Answer: No ??? Throat culture Throat Standing Status: Future Standing Expiration Date: 10/14/2022 ??? POCT rapid strep A documented in this encounter Plan of Treatment Not on file documented as of this encounter Procedures Procedure Name Priority Date/Time Associated Diagnosis Comments POCT RAPID STREP Routine 10/14/2021 3:19 PM CDT Pharyngitis, unspecified etiology documented in this encounter Results * Throat culture Throat (10/14/2021 3:19 PM CDT) Report Final Report: No growth of pathogens. JOSIAH MCLAIN Comment:Testing performed by : [facility], [address] [place] [address]., [id number] Throat 10/14/2021 3:19 PM CDT 10/14/2021 10:48 PM CDT Narrative JOSIAH - 10/15/2021 10:57 PM CDT Testing performed by [facility] ([phone]). Corine Green NP LAB MICROBIOLOGY - GENER AL ORDERABLES Final Result JOSIAH MCLAIN [id number] Department [place] [address] * POCT rapid strep A (10/14/2021 3:19 PM CDT) Rapid Strep A, POC Negative Swab 10/14/2021 3:19 PM CDT Corine Green NP POINT OF CARE TEST ORDER BONNIE Final Result * COVID-19 Coronavirus RNA Nasopharyngeal (10/14/2021 3:19 PM CDT) Pathologist [facility] [place] COVID-19 RNA Not Detected JOSIAH MCLAIN Comment: Interpretive Data Synonyms for this test include: PCR and NAAT . ??Testing performed by the [facility] Molecular Infectious Disease Laboratory. The 2019-Novel Coronavirus Assay (COVID-19) Real Time RT-PCR assay is for in vitro diagnostic use under FDA emergency use authorization only. A negative RT-PCR result does not preclude infection with COVID-19 and should not be used as the sole basis for treatment or other patient management decisions. ??Additional sample types have been validated according to CLIA regulations. ?? Current Interpretive Data was last revised on May 20, 2020. Testing performed by: [facility], [address] [place]., [address] Nasopharyngeal 10/14/2021 3: 19 PM CDT 10/14/2021 11:24 PM CDT Narrative JOSIAH MCLAIN - 10/15/2021 6:07 AM CDT Is the patient experiencing any symptoms consistent with COVID (eg. Fever, cough, shortness of breath)?->Yes What is the reason for testing?->Symptoms of COVID-19 in low-risk group (Batched) Date of Symptom Onset->09/30/21 Corine Green NP LAB MICROBIOLOGY - GENER AL ORDERABLES Final Result JOSIAH MCLAIN [address] Department [place] [address] documented in this encounter Visit Diagnoses Diagnosis Acute pansinusitis, recurrence not specified- Primary Pharyngitis, unspecified etiology Dysfunction of both eustachian tubes Pharyngitis, unspecified etiology documented in this encounter Additional Health Concerns Infection Onset Date Last Indicated Resolved Time COVID: Suspected 10/14/2021 10/14/2021 10/15/2021 3:05 AM CDT documented as of this encounter Care Teams Manager Of Care Relationship Specialty Start Date End Date Judith Walton NP [address] [place] [address] PCP - General 05/26/20 documented as of this encounter
--- OUTSIDE RECORDS SUMMARY | 2024-04-12 13:21 | XMS_ITS | Encounter Summary ---
Author Organization [facility] Address [address] [place] [address] Care Team Providers Care Relief Manager Name Role Phone Judith Walton NP Primary Care Provider Reason for Visit * Reason Comments Knee Pain Fall Encounter Details Date Type Department Care Team ([facility] Contact Info) Description 08/27/2021 2:49 PM CDT - 08/27/2021 4:29 PM CDT Emergency [facility] Emergency Department [address] [place] [id number] Fall, initial encounter (Primary Dx); Acute pain of left knee Discharge Disposition: Discharge to home or self [...] Sign Reading Time Taken Comments Blood Pressure 112/67 08/27/2021 2:30 PM CDT Pulse 83 08/27/2021 2:27 PM CDT Temperature 36.6 ??C (97.9 ??F) 08/27/2021 2:27 PM CD T Respiratory Rate 18 08/27/2021 2:27 PM CDT Oxygen Saturation 100% 08/27/2021 2:27 PM CDT Inhaled Oxygen Concentration - - Weight 97.5 kg (215 lb) 08/27/2021 2:27 PM CDT Height 160 cm (5' 3 ) 08/27/2021 2:27 PM CDT Body Mass Index 38.09 08/27/2021 2:27 PM CDT documented in this encounter Discharge Diagnoses Diagnosis Pain in left knee - PAIN IN LEFT KNEE Fall on same level from slipping, tripping and stumbling without subsequent striking against object, initial encounter - FALL ON SAME LEVEL FROM SLIPPING, TRIPPING AND STUMBLING WITHOUT SUBSEQUENT STRIKING AGAINST OBJECT, Activity, other specified - ACTIVITY, OTHER SPECIFIED Gas station as the place of occurrence of the external cause - GAS STATION THE PLACE OF OCCURRENCE OF THE EXTERNAL CAUSE documented in this encounter Discharge Instructions * Discharge Instructions* Jim Castro NP - 08/27/2021 4:15 PM CDT Please return to the ED if you experience fever, chills, chest pain, shortness of breath, or difficulty breathing. [facility] Orthopedic Physicians: [facility] Dr. Champion, Dr. Ponce, Dr Grijalva, Dr Adams, Dr. Cao [facility] [address], [facility] [address] [place] [address] ph# [phone] [facility], [facility]. [place] [address] ph# [phone] [facility] [address] [facility] [address] Francois [address] [place] [address] ph# [phone] Please wear the Tyler wrap, and the knee immobilizer, take ibuprofen as needed for pain. In follow-upwith your primary care physician. For continued pain you may need an MRI or CT scan, to determine whether not you injured a tendon or ligament, please contact the orthopedic specialty office for continued pain. * Attachments The following attachments cannot be sent through Care Everywhere. * TYLER Wrap ([place]ri [place]ankan) * Fall with Uncertain Cause ([place]ankan) documented in this encounter Medications at Time [...] documented in this encounter ED Notes * Jim Castro NP - 08/27/2021 4:00 PM CDT HPI Chief Complaint Patient presents with ??? Knee Pain ??? Fall [age] year, female patient presents the ED stating that she was just pumping gas at the gas station, when she tripped and fell onto her left knee over the hose connecting the gas pump to the car. Patient denies striking head neck or back. States that she fell on her bended knee. Patient reports she has a history of anxiety, asthma, depression, sinus issues , and PTSD. Patient denies additional complaints states she did not strike her head neck or back, denies additional injuries and denies being on a blood thinner. Denies loss of consciousness. Patient History: There are no problems to [...] Smoking status: Current Every Day Smoker Packs/day: 0.10 Types: Cigarettes ??? Smokeless tobacco: Never Used Vaping Use ??? Vaping Use: Never used Social History Social History Narrative ??? Not on file Review of Systems Review of Systems Constitutional: Negative for chills and fever. HENT: Negative for ear pain and sore throat. Eyes: Negative for pain and visual disturbance. Respiratory: Negative for cough and shortness of breath. Cardiovascular: Negative for chest pain and palpitations. Gastrointestinal: Negative for abdominal pain and vomiting. Genitourinary: Negative for dysuria and hematuria. Musculoskeletal: Negative for arthralgias and back pain. + left knee pain Skin: Negative for color change and rash. Neurological: Negative for seizures and syncope. All other systems reviewed and are negative. Physical Exam ED Triage Vitals Temp Pulse Resp BP SpO2 08/27/21142608/27/21142608/27/21142608/27/21 1430 08/27/21 142 36.6 ??C (97.9 ??F) 83 18 112/67 100 % Temp src Heart Rate Source Patient Position BP Location FiO2 (%) 08/27/211426 -- -- 08/27/211429 -- Temporal Right arm Height Height Method Weight Weight Method 08/27/21142608/27/21 14208/27/21 14208/27/21 142 1.6 m (5' 3 ) Stated 97.5 kg (215 lb) Stated Physical Exam Vitals and nursing note reviewed. Constitutional: General: She is not in acute distress. Appearance: She is well-developed. She is not ill-appearing, toxic-appearing or diaphoretic. HENT: Head: Normocephalic and atraumatic. Right Ear: Tympanic membrane, ear canal and external ear normal. Left Ear: Tympanic membrane, ear canal and external ear normal. Nose: Nose normal. Mouth/Throat: Mouth: Mucous membranes are moist. Eyes: Extraocular Movements: Extraocular movements intact. Conjunctiva/sclera: Conjunctivae normal. Pupils: Pupils are equal, round, and reactive to light. Cardiovascular: Rate and Rhythm: Normal rate and regular rhythm. Pulses: Normal pulses. Heart sounds: Normal heart sounds. No murmur heard. No friction rub. No gallop. Pulmonary: Effort: Pulmonary effort is normal. No respiratory distress. Breath sounds: Normal breath sounds. No stridor. No wheezing, rhonchi or rales. Chest: Chest wall: No tenderness. Abdominal: General: Abdomen is flat. Bowel sounds are normal. There is no distension. Palpations: Abdomen is soft. There is no mass. Tenderness: There is no abdominal tenderness. There is no right CVA tenderness, left CVA tenderness, guarding or rebound. Hernia: No hernia is present. Musculoskeletal: General: Tenderness present. Cervical back: Normal, normal range of motion and neck supple. Thoracic back: Normal. Lumbar back: Normal. Right knee: Normal. Left knee: Bony tenderness present. No swelling, deformity, effusion, erythema, ecchymosis, lacerations or crepitus. Normal range of motion. Tenderness present. No medial joint line, lateral joint line, MCL, LCL, ACL, PCL or patellar tendon tenderness. No LCL laxity, MCL laxity, ACL laxity or PCL laxity.Normal alignment, normal meniscus and normal patellar mobility. Normal pulse. Comments: TTP to the distal patellar rim., no quadriceps or patellar tendon instability. Patient able to hold left leg in full extension. Left pedal pulse 2 +and palpable, negative Hugh's, negative Julienne's exam. There is a mild overlying abrasion to the left prepatellar region. Skin: General: Skin is warm and dry. Capillary Refill: Capillary refill takes less than 2 seconds. Neurological: General: No focal deficit present. Mental Status: She is alert and oriented to person, place, and time. Psychiatric: Mood and Affect: Mood normal. Behavior: Behavior normal. Thought Content: Thought content normal. Judgment: Judgment normal. MDM Medical Decision Making Differential Diagnosis or Management Options: In my medical decision making the following differential diagnoses were considered before arriving at final diagnosis and many were either ruled out or appeared unlikely Differential diagnosis includes acute myofascial sprain, strain, fracture, dislocation, joint effusion, quadriceps, or patellar tendon injury, tear. X-rays negative for acute fracture dislocation, patient discharged home with Tyler bandage, left knee immobilizer, referral to Orthopedics, and ibuprofen prescription. XR Knee Left 3 Views Final Result ED Course as of 08/27/21 1617 Time: 08/28 1607 Comment: Voice recognition software [employer] Direct was used to dictate and transcribe this document. Subsurface Augmentee Operator variances may occur. Despite proofreading, typographical errors may occur. By: Jim Castro NP Time: 08/27 1608 Comment: Discussed ED findings and plans for discharge with pt who understands and agrees with plan. Pt has been advised to return to the ED with any new or worsening symptoms. Pt has no further complaints. All questions addressed at this time. By: Jim Castro NP Time: 08/27 1608 Comment: I have personally reviewed the radiologist report of the ordered studies and have discussed the results including and normal/variants/or incidental findings with the patient. By: Jim Castro NP Final diagnoses: Fall, initial encounter Acute pain of left knee Jim Castro NP 08/27/21 1617 Cosigned by Diomedes Yanes MD at 08/27/2021 8:28 PM CDT Associated attestation - Diomedes Yanes MD - 08/27/2021 8:28 PM CDT Based on the medical record, the care appears appropriate. * Celi Saucedo RN - 08/27/2021 2:26 PM CDT Pt reports that she tripped and fell and she is having L knee pain since. Reports that she struck cement documented in this encounter Plan of Treatment [...] PM T: ??08/27/2021 3:36 PM Report ID: [id number] Reading Location: ??[id number] Procedure Note Monae Pierce, DO - 08/27/2021 EXAM DESCRIPTION: XR KNEE [...] Monae Pierce D.O. PS: PS Report ID: [id number] Reading Location: [id number] us Diomedes Yanes MD IMG XR PROCEDURES Final Re sult documented in this encounter Visit Diagnoses Diagnosis Fall, initial encounter- Primary Acute pain of left knee documented in this encounter Administered Medications Inactive Administered Medications - up to 3 most recent administrations Medication Order MAR Action Action Date Dose Rate Site acetaminophen (TYLENOL) tablet 1,000 mg 1,000 mg, oral, Once, On 08/27/21 at 1558, For 1 dose Given 08/27/2021 4:05 PM CDT 1,000 mg ibuprofen (ADVIL,MOTRIN) tablet 800 mg 800 mg, oral, Once, On 08/27/21 at 1558, For 1 dose Given 08/27/2021 4:05 PM CDT 800 mg documented in this encounter Active and Recently Administered Medications Times are shown in CDT. Scheduled Medication Order 08/25/2021 08/26/2021 08/27/2021 acetaminophen (TYLENOL) tablet 1,000 mg (COMPLETED) 1,000 mg, oral, Once, On 08/27/21 at 1558, For 1 dose 1605 (Given - Provid er: Brittanie Chester RN) ibuprofen (ADVIL,MOTRIN) tablet 800 mg (COMPLETED) 800 mg, oral, Once, On 08/27/21 at 1558, For 1 dose 1605 (Given - Provid er: Brittanie Chester, [place]) documented in this encounter Orders Nursing Count Last Ordered Date First Orde red Date APPLY TYLER WRAP 1 08/27/2021 BRACE APPLICATION 1 08/27/2021 documented in this encounter Care Teams Relief Manager Relationship Specialty Start Date End Date Judith Walton NP [address] [place] [address] PCP - General 05/26/20 documented as of this encounter
--- OUTSIDE RECORDS SUMMARY | 2024-04-12 13:21 | XMS_ITS | Encounter Summary ---
Author Organization [facility] Address [address] [place] [address] Care Team Providers Care Client Application Support Engineer Name Role Phone Judith Walton NP Primary Care Provider [phone] Reason for Referral * Diagnostic Imaging (Routine) - Closed Specialty Diagnoses / Procedures Referred By Rkac t Referred To Contact Diagnoses Left shoulder pain, unspecified chronicity Procedures XR Shoulder Left 2 or More Views Judith Walton NP [address] [place] [address] Phone: tel: fax: [address] [phone] Referral ID Status Reason Start Date Expiration Date Visits Re quested Visits Authorized [id number] Closed 12/05/2022 01/04/2024 1 1 Reason for Visit * Diagnostic Imaging (Routine) - Closed Specialty Diagnoses / Procedures Referred By Contac t Referred To Contact Diagnoses Left shoulder pain, unspecified chronicity Procedures XR Shoulder Left 2 or More Views Judith Walton NP [address] [place] [address] Phone: tel: fax: [address] [phone] Referral ID Status Reason Start Date Expiration Date Visits Re quested Visits Authorized [id number] Closed 12/05/2022 01/04/2024 1 1 Encounter Details Date Type Department Care Team (Latest Contact Info) Description 12/05/2022 9:22 AM CDT - 12/05/2022 11:59 PM CDT Hospital Encounter [facility] [address] [place] [address] Left shoulder pain, unspecified chronicity Discharge Disposition: Discharge to home or self [...] Date/Time Associated Diagnosis Comments XR SHOULDER LEFT 2 OR MORE VIEWS Schedule Routine, Read Routine (OP Routine) 12/05/2022 9:34 AM CDT Left shoulder pain, unspecified chronicity documented in this encounter Results * XR Shoulder Left 2 or More Views (12/05/2022 9:34 AM CDT) Anatomical Region Laterality Modality Upper Extremities, Shoulder Left Comp uted Radiography 12/06/2022 10:0 6 AM CDT Narrative 12/06/2022 10:09 AM CDT EXAM DESCRIPTION: XR SHOULDER LEFT 2 OR MORE VIEWS REASON FOR STUDY: PAIN IN LEFT SHOULDER ?? Fell on the and 12th. ??No surgery ??No prior injuries ??Pain is all over. ? FINDINGS: Four views submitted without comparison. No acute fractures are identified. ??The glenohumeral joint is normal. ??There is mild acromioclavicular joint osteoarthritis. ??Old granulomatous disease is present. IMPRESSION: Mild left acromioclavicular joint osteoarthritis. THIS IS AN ELECTRONICALLY VERIFIED FINAL REPORT 12/06/2022 10:09 AM - Electronically signed by ??Nakul WLILIS: ALBA D: ??12/06/2022 10:09 AM T: ??12/06/2022 10:09 AM Report ID: [id number] Reading Location: ??[id number] Procedure Note Nakul Kunz MD - 12/06/2022 EXAM DESCRIPTION: XR SHOULDER LEFT 2 OR MORE VIEWS REASON FOR STUDY: PAIN IN LEFT SHOULDER Fell on the 9th and 12th. No surgery No prior injuries Pain is allover. FINDINGS: Four views submitted without comparison. No acute fractures are identified. The glenohumeral joint is normal.There is mild acromioclavicular joint osteoarthritis. Old granulomatous diseaseis present. IMPRESSION: Mild left acromioclavicular joint osteoarthritis. THIS IS AN ELECTRONICALLY VERIFIED FINAL REPORT 12/06/2022 10:09 AM - Electronically signed by Nakul Kunz M.D. MF: ALBA Report ID: [id number] Reading Location: [id number] Judith Walton NP IMG XR PROCEDURES Final Resu lt documented in this encounter Visit Diagnoses Diagnosis Left shoulder pain, unspecified chronicity documented in this encounter Care Teams Client Application Support Engineer Relationship Specialty Start Date End Date Judith Walton NP [address] [place] [address] PCP - General 05/26/20 documented as of this encounter
--- OUTSIDE RECORDS SUMMARY | 2024-04-12 13:21 | XMS_ITS | Encounter Summary ---
Author Organization [facility] Address [address] [facility] [address] [place] [address] Care Team Providers Care Tilting Saw Operator Name Role Phone Judith Walton NP Primary Care Provider [phone] Reason for Visit * Reason Comments Cough Sinus congestion, co ugh, headache, symptom onset 05/15/2022. Patient has tried Mucinex and Ibuprofen OTC. Encounter Details Date Type Department Care Team ([facility] Contact Info) Description 05/20/2022 1:00 PM BLENDING LINE ATTENDANT Office Visit [facility] [address] [place] [address] Radha Srivastava NP [address] [place] [address] Streptococcus pharyngitis (Primary Dx); Acute recurrent maxillary sinusitis; Cough, unspecified type; Sore throat Social History Tobacco Use Types Packs/Day Years [...] Sign Reading Time Taken Comments Blood Pressure 106/58 05/20/2022 1:04 PM BLENDING LINE ATTENDANT Pulse 77 05/20/2022 1:04 PM BLENDING LINE ATTENDANT Temperature 36.5 ??C (97.7 ??F) 05/20/2022 1:04 PM CS T Respiratory Rate 18 05/20/2022 1:04 PM BLENDING LINE ATTENDANT Oxygen Saturation 97% 05/20/2022 1:04 PM BLENDING LINE ATTENDANT Inhaled Oxygen Concentration - - Weight 93 kg (205 lb) 05/20/2022 1:04 PM BLENDING LINE ATTENDANT Height 160 cm (5' 3 ) 05/20/2022 1:04 PM BLENDING LINE ATTENDANT Body Mass Index 36.31 05/20/2022 1:04 PM BLENDING LINE ATTENDANT documented in this encounter Patient Instructions * Patient Instructions* Radha Srivastava NP - 05/20/2022 1:00 PM BLENDING LINE ATTENDANT Research has proven that unless you are running a fever or symptoms start to improve then get worseagain, sinus infections are typically viral until days 9-10. Finish the entire antibiotic prescription. Take this with food. Eat yogurt or take probiotic daily while on antibiotics. Symptomatic treatments include: - Over the counter antihistamine such as loratadine (Claritin) or cetirizine (Zyrtec) to reduce secretions. The D formula includes pseudoephedrine and can be helpful as a decongestant but SHOULD NOT BE USED IF YOU HAVE A HISTORY OF HIGH BLOOD PRESSURE. - Coricidin HBP may be taken for congestion if you have a history of high blood pressure. - Topical decongestants are another option such as Afrin. Do not use for more than 3 days as it cancause rebound congestion worse than original congestion. - Tessalon, Dextromethorphan (Robitussin) or Delsym for cough - Guafenesin (Mucinex) to thin secretions - Acetaminophen (Tylenol), ibuprofen (Motrin, Advil), or Aleve (naproxen) for pain or fever. - The use of hypertonic saline to irrigate nasal passageways can be helpful. Over the counter systems include Neti Pot and Nasopure. Use with distilled water. - Salt water gargles and throat lozenges can be helpful for sore throat. - To prevent spreading the illness to others cover your sneeze and cough into your arm and not yourhand, don't allow others to eat or drink with the same utensils or glass, and use hand inpatient care manager rn before touching people or common surfaces. - Apply warm packs to face to facilitate sinus drainage. - Use cool mist humidifier in bedroom at night. - Increase fluid consumption and rest. - Follow up with your PCP in 1 week or sooner if symptoms worsen or are not improving as planned. - If you experience any shortness of breath, chest pain, or high fever >101, go to the EmergencyRoom. Complete antibiotic as prescribed Tylenol or Motrin for fever/pain Stay hydrated- Drinking fluids is more important than eating Throat lozenges or sprays usually do not help. Follow up with your PCP if you are not getting better Go to ER if you develop: Trouble swallowing or breathing or if child can barely speak or cry Fever >104 Dehydration or decreased Urine Output, very dry mouth or no tears when crying You may return to work, daycare, or school 24 hours after starting antibiotics and you are fever free Do not share food, drinks, or utensils Replace your toothbrush within 24 hours after starting antibiotics and again after 3-4 days. I recommend washing your pillow cases and sheets after 24 hours Home Treatments: Warm fluids or chicken broth Ice cream, popsicles, slushes, sherbert Gargle w warm salt water Avoid spicy or citrus foods DING LINE ATTENDANT documented in this encounter Ordered Prescriptions Prescription Sig Dispense Quantity Refills Last Filled Start Date End Date amoxicillin-clavul anate (Augmentin) 875-125 mg per tabletIndications: Streptococcus pharyngitis Take 1 tablet by mouth 2 (two) times a day for 10 days 20 tablet 05/20/2022 05/30/2022 documented in this encounter Progress Notes * Radha Srivastava NP - 05/20/2022 1:00 PM CST Images from the original note were not included. Subjective/Objective Patient ID: Ambar Alatorre is a 37 y.o. female. Chief Complaint Cough (Sinus congestion, cough, headache, symptom onset 05/15/2022. Patient has tried Mucinex and Ibuprofen OTC.) Patient presents to convenient care sinus congestion, cough, headache x6 days. She denies any fevers or shortness of breath. She denies any exposure to covid or flu. She has been taking OTC mucinex and ibuprofen for her symptoms. Review of Systems Constitutional: Negative for activity change, appetite change, fatigue and fever. HENT: Positive for congestion and rhinorrhea. Negative for ear discharge, ear pain, postnasal drip,sinus pressure and sore throat. Eyes: Negative for discharge. Respiratory: Positive for cough. Negative for shortness of breath. Gastrointestinal: Negative for diarrhea, nausea and vomiting. Musculoskeletal: Negative for myalgias. Skin: Negative for rash. Neurological: Negative for headaches. Hematological: Negative for adenopathy. Physical Exam Vitals reviewed. Constitutional: General: She is not in acute distress. Appearance: Normal appearance. She is well-developed. She is not ill-appearing. HENT: Head: Normocephalic. Right Ear: Tympanic membrane, ear canal and external ear normal. Left Ear: Tympanic membrane, ear canal and external ear normal. Nose: Congestion present. No rhinorrhea. Right Turbinates: Swollen. Left Turbinates: Swollen. Right Sinus: Maxillary sinus tenderness present. No frontal sinus tenderness. Left Sinus: Maxillary sinus tenderness present. No frontal sinus tenderness. Mouth/Throat: Lips: [place]. Mouth: Mucous membranes are moist. Pharynx: Oropharynx is clear. Posterior oropharyngeal erythema present. Tonsils: Tonsillar exudate present. 2+ on the right. 2+ on the left. Eyes: General: Right eye: No discharge. Left eye: No discharge. Conjunctiva/sclera: Conjunctivae normal. Cardiovascular: Rate and Rhythm: Normal rate and regular rhythm. Pulmonary: Effort: Pulmonary effort is normal. No respiratory distress. Breath sounds: Normal breath sounds and air entry. Abdominal: Tenderness: There is no abdominal tenderness. Musculoskeletal: General: Normal range of motion. Cervical back: Neck supple. Lymphadenopathy: Head: Right side of head: No tonsillar adenopathy. Left side of head: No tonsillar adenopathy. Cervical: No cervical adenopathy. Skin: General: Skin is warm and dry. Findings: No rash. Neurological: Mental Status: She is alert and oriented to person, place, and time. Mental status is at baseline. Psychiatric: Attention and Perception: Attention normal. Mood and Affect: Mood normal. Behavior: Behavior normal. Behavior is cooperative. Thought Content: Thought content normal. Judgment: Judgment normal. Vitals: 05/20/22 1304 BP: 106/58 BP Location: Right arm Patient Position: Sitting Pulse: 77 Resp: 18 Temp: 36.5 ??C (97.7 ??F) TempSrc: Oral SpO2: 97% Weight: 93 kg (205 lb) Height: 160 cm (5' 3 ) Assessment/Plan Antibiotics as prescribed Tylenol/motrin as needed for pain Tessalon as needed for cough Follow up with PCP if symptoms persist ER precautions reviewed Diagnoses and all orders for this visit: Streptococcus pharyngitis (Primary) - amoxicillin-clavulanate (Augmentin) 875-125 mg per tablet; Take 1 tablet by mouth 2 (two) times aday for 10 days - POCT rapid strep A Acute recurrent maxillary sinusitis Cough, unspecified type - POC Influenza A/B, COVID-19 antigen Sore throat Recent Results (from the past 4 hour(s)) POC Influenza A/B, COVID-19 antigen Collection Time: 05/20/22 1:22 PM Result Value Ref Range Influenza A Ag, POC Negative Negative Influenza B Ag, POC Negative Negative COVID-19 Ag POC Presumptive Negative Presumptive Negative, Invalid POCT rapid strep A Collection Time: 05/20/22 1:43 PM Result Value Ref Range Rapid Strep A, POC Positive Patient Education: Disposition Treatment plan including expectations, follow up, and return precautions discussed with patient/parent, verbalizes understanding. Medication dosage, use, and potential adverse reactions discussed with patient/parent. Advised to follow up with PCP if symptoms do not resolve as expected or sooner if condition worsens. Signs/symptoms warranting ER evaluation reviewed. Patient and/or guardian was given an opportunity to ask questions, questions answered. Radha Srivastava NP DING LINE ATTENDANT documented in this encounter Plan of Treatment Not on file documented as of this encounter Procedures Procedure Name Priority Date/Time Associated Diagnosis Comments POCT RAPID STREP Routine 05/20/2022 1:43 PM BLENDING LINE ATTENDANT Streptococcus pharyngitis POC INFLUENZA A/B, COVID-19 ANTIGEN Routine 05/20/2022 1:22 PM BLENDING LINE ATTENDANT Cough, unspecified type documented in this encounter Results * (ABNORMAL) POCT rapid strep A (05/20/2022 1:43 PM BLENDING LINE ATTENDANT) Rapid Strep A, POC Positive Swab 05/20/2022 1:43 PM BLENDING LINE ATTENDANT Radha Srivastava VOCAL MUSIC TEACHER POINT OF CARE TEST ORDERABLES Fi nal Result * POC Influenza A/B, COVID-19 antigen (05/20/2022 1:22 PM BLENDING LINE ATTENDANT) Influenza A Ag, POC Negative Negative [facility] [place] Influenza B Ag, POC Negative Negative [facility] COVID-19 Ag POC Presumptive Negative Presumptive Negative, Invalid [facility] [place] Nasal 05/20/2022 1:22 PM BLENDING LINE ATTENDANT Radha Srivastava VOCAL MUSIC TEACHER POINT OF CARE TEST ORDERABLES Fi nal Result [facility] [address] [employer] [place] [address] documented in this encounter Visit Diagnoses Diagnosis Streptococcus pharyngitis- Primary Acute recurrent maxillary sinusitis Cough, unspecified type Sore throat Acute pharyngitis documented in this encounter Historical Medications * This list may reflect changes made after this encounter. lamoTRIgine (LaMICtal) 25 mg tabletIndications :Mood Take 2 tablets (50 mg total) by mouth nightly 04/27/2022 clonazePAM (KlonoPIN) 1 mg tablet Take 1 tablet (1 mg total) by mouth daily 04/27/2022 2023 added in this encounter Additional Health Concerns Infection Onset Date Last Indicated Resolved Time COVID: Suspected 05/20/2022 05/20/2022 05/20/2022 1:23 PM BLENDING LINE ATTENDANT documented as of this encounter Care Teams Tilting Saw Operator Relationship Specialty Start Date End Date Judith Walton NP [address] [place] [address] PCP - General 05/26/20 documented as of this encounter
--- OUTSIDE RECORDS SUMMARY | 2024-04-12 13:21 | XMS_ITS | Encounter Summary ---
Author Organization [facility] Address [address] [place] [address] Care Team Providers Care Slitting Machine Feeder Name Role Phone AntonPareshJudithyifan Salgado NP Primary Care Provider [phone] Encounter Details Date Type Department Care Team (Late st Contact Info) Description 10/14/2021 7:45 PM CDT Lab [address] [address] Pharyngitis, unspecified etiology Social History Tobacco Use Types Packs/Day Years Used Date Smoking Tobacco: Every Day Cigarettes Smokeless Tobacco: Never Comments No Sex and Gender Information Value Date Recorded Sex Assigned at Not on file Legal Sex Female 11:20 PM CDT Gender Identity Not on file Sexual Orientation Not on file documented as of this encounter Miscellaneous Notes * Result Encounter Note - Mercedez Champion MA - 10/18/2021 8:17 AM CDT Viewed on [employer] * Result Encounter Note - Ambar Burnett PA - 10/18/2021 8:16 AM CDT Please alert patient that throat culture was negative. * Result Encounter Note - Saranya Abdullahi MA - 10/15/2021 9:08 AM CDT Left message for patient to call back to discuss covid results. * Result Encounter Note - Melania Frias NP - 10/15/2021 7:26 AM CDT Please notify patient of negative COVID-19 test. [...] Procedure Name Priority Date/Time Associated Diagnosis Comments COVID-19 CORONAVIRUS RNA Routine 10/14/2021 3:19 PM CDT Pharyngitis, unspecified etiology THROAT CULTURE Routine 10/14/2021 3:19 PM CDT Pharyngitis, unspecified etiology documented in this encounter Results * COVID-19 Coronavirus RNA Nasopharyngeal (10/14/2021 3:19 PM CDT) COVID-19 RNA Not Detected JOSIAH MCLAIN Comment: Interpretive Data Synonyms for this test include: PCR and NAAT . ??Testing performed by the [facility]. The 2018-Novel Coronavirus Assay (COVID-19) Real Time RT-PCR assay [...] on May 20, 2020. Testing performed by: [facility], [address] [facility] [place]., [address] Nasopharyngeal 10/14/2021 3: 19 PM CDT 10/14/2021 11:24 PM CDT Narrative JOSIAH MCLAIN - 10/15/2021 6:07 AM CDT Is the patient experiencing any symptoms consistent with COVID (eg. Fever, cough, shortness of breath)?->Yes What is the reason for testing?->Symptoms of COVID-19 in low-risk group (Batched) Date of Symptom Onset->09/30/21 Corine Green NP LAB MICROBIOLOGY - GENER AL ORDERABLES Final Result Performing Organization Address [facility] Co de Phone Number WILSONCHU MCLAIN [phone] Department [place] [address] * Throat culture Throat (10/14/2021 3:19 PM CDT) Report Final Report: No growth of pathogens. JOSIAH Comment:Testing performed by : [facility], [address] [place]., [address] Throat 10/14/2021 3:19 PM CDT 10/14/2021 10:48 PM CDT Narrative JOSIAH - 10/15/2021 10:57 PM CDT Testing performed by [facility] Microbiology Laboratory ([phone]). Corine Green NP LAB MICROBIOLOGY - GENER AL ORDERABLES Final Result Performing Organization Address [facility] de Phone Number WILSONCHU MCLAIN [address] Department [place] [address] documented in this encounter Visit Diagnoses Diagnosis Pharyngitis, unspecified etiology documented in this encounter Additional Health Concerns Infection Onset Date Last Indicated Resolved Time COVID: Suspected 10/14/2021 10/14/2021 10/15/2021 3:05 AM CDT COVID: Suspected 10/14/2021 10/14/2021 10/15/2021 6:08 AM CDT documented as of this encounter Care Teams Slitting Machine Feeder Relationship Specialty Start Date End Date Judith Walton NP [address] [place] [address] PCP - General 05/26/20 documented as of this encounter
--- OUTSIDE RECORDS SUMMARY | 2024-04-12 13:21 | XMS_ITS | Encounter Summary ---
Author Organization [facility] Healthcare Address [address] [place] [address] Care Team Providers Care Surface Mount Technology Operator Name Role Phone Judith Walton NP Primary Care Provider + [phone] Encounter Details Date Type Department Care Team ([facility] st Contact Info) Description 12/22/2022 Ancillary Procedure [facility] Outside Films Social History Tobacco Use Types Packs/Day Years [...] Name Priority Date/Time Associated Diagnosis Comments US TRANSFER OF OUTSIDE FILMS Routine 12/22/2022 12:00 AM CDT documented in this encounter Results * US Outside Reference (12/22/2022 12:00 AM CDT) Narrative [facility] - 01/17/2023 2:54 PM CDT This order has been auto-finalized and does not contain a result. us Misbah OSULLIVAN US PROCEDURES Final Res ult [facility] documented in this encounter Visit Diagnoses Not on filedocumented in this encounter Care Teams Surface Mount Technology Operator Relationship Specialty Start Date End Date Judith Walton NP [address] [place] [address] PCP - General 05/26/20 documented as of this encounter
--- OUTSIDE RECORDS SUMMARY | 2024-04-12 13:21 | XMS_ITS | Encounter Summary ---
Author Organization [facility] Medical [facility] Address [address] [place] [address] Care Team Providers Care Electrician'S Assistant Name Role Phone Judith Walton NP Primary Care Provider [phone] Reason for Visit * Reason Comments Sore Throat Congestion, drainage , sore throat, ear ache symptom onset 10 days ago. Patient has tried Mucinex and Ibuprofen OTC for her symptoms. Encounter Details Date Type Department Care Team ([facility] Contact Info) Description 09/28/2022 5:30 PM CDT Office Visit [facility] [place] [address] [place] [address] Radha Srivastava NP [address] [facility] [place] [address] Bacterial URI (Primary Dx) Social History Tobacco Use Types [...] Sign Reading Time Taken Comments Blood Pressure 102/80 09/28/2022 5:37 PM CDT Pulse 68 09/28/2022 5:37 PM CDT Temperature 36.6 ??C (97.8 ??F) 09/28/2022 5:37 PM CD T Respiratory Rate 16 09/28/2022 5:37 PM CDT Oxygen Saturation 98% 09/28/2022 5:37 PM CDT Inhaled Oxygen Concentration - - Weight 90.3 kg (199 lb) 09/28/2022 5:37 PM CDT Height 160 cm (5' 3 ) 09/28/2022 5:37 PM CDT Body Mass Index 35.25 09/28/2022 5:37 PM CDT documented in this encounter Patient Instructions * Patient Instructions* Radha Srivastava NP - 09/28/2022 5:30 PM CDT Recommendations and Information The main treatment for respiratory infections of any kind is to rest, eat healthy, and drink plentyof fluids. Cold symptoms will likely last anywhere from 7-10 days with symptoms feeling much worse on days 3-5. Antibiotic medications do not cure a cold nor do antibiotic medications help to shortenthe symptoms of viral illness. The following may help you feel better: Over the counter antihistamine such as loratadine (Claritin) or cetirizine (Zyrtec) to reduce secretions. The D formula includes pseudoephedrine and can be helpful as a decongestant but should not be used if you have a history of high blood pressure. Tessalon if prescribed for cough. Albuterol inhaler if prescribed for shortness of breath, cough, or wheezing. Use you albuterol inhaler or nebulizer every 4 hours for the next 48 hours, then every 4-6 hours as needed. Don't smoke and avoid second hand smoke. Suck on cough drops or hard candies to soothe a dry or sore throat. Cough drops won't stop your cough, but they may make your throat feel better. Over the counter loratadine (Claritin) or cetirizine (Zyrtec) to reduce secretions. Mucinex to thin secretions Breathe moist air from a humidifier, a hot shower, or a sink filled with hot water. The heat and moisture can help keep mucus in your airways moist so you can cough it out easily. Use nonprescription medicine, such as acetaminophen, ibuprofen, or aspirin, to relieve fever and body aches. Don't give aspirin to anyone younger than age 20. Rest more than usual. Drink plenty of fluids so that you do not become dehydrated and to keep mucous thin. Use an xier-naq-mxbbumw cough medicine such as Delsym or Robitussin. (Cough medicines may not be safe for young children or for people who have certain health problems.) Cough suppressants may help you to stop coughing. Expectorants, such as Mucinex, can help you bring up mucus when you cough. Follow up with primary care physician in 1 week, or sooner if symptoms worsen. If you experience worsening shortness of breath or fever >101, go to the Emergency Room. documented in this encounter Ordered Prescriptions Prescription Sig Dispense Quantity Refills Last Filled Start Date End Date amoxicillin-clavul anate (Augmentin) 875-125 mg per tabletIndications: Bacterial URI Take 1 tablet by mouth 2 (two) times a day for 10 days 20 tablet 09/28/2022 10/08/2022 documented in this encounter Progress Notes * Radha Srivastava NP - 09/28/2022 5:30 PM CDT Images from the original note were not included. Subjective/Objective Patient ID: Ambar Alatorre is a 37 y.o. female. Chief Complaint Sore Throat (Congestion, drainage, sore throat, ear ache symptom onset 10 days ago. Patient has tried Mucinex and Ibuprofen OTC for her symptoms. ) Patient presents to convenient care for sinus congestion, nasal drainage, sore throat, and bilateral ear pain times 10 days. She was recently exposed to strep by her son. She denies any known exposure to COVID or flu. She has been taking OTC Mucinex and ibuprofen for her symptoms. She denies any shortness of breath, fevers, or chest pain. Review of Systems Constitutional: Negative for activity change, appetite change, fatigue and fever. HENT: Positive for congestion, ear pain, rhinorrhea and sore throat. Negative for ear discharge, postnasal drip and sinus pressure. Eyes: Negative for discharge. Respiratory: Negative for cough and shortness of breath. Gastrointestinal: Negative for diarrhea, nausea and vomiting. Musculoskeletal: Negative for myalgias. Skin: Negative for rash. Neurological: Negative for headaches. Hematological: Negative for adenopathy. Physical Exam Vitals reviewed. Constitutional: General: She is not in acute distress. Appearance: Normal appearance. She is well-developed. She is not ill-appearing. HENT: Head: Normocephalic. Right Ear: Ear canal and external ear normal. A middle ear effusion is present. Left Ear: Ear canal and external ear normal. A middle ear effusion is present. Nose: No congestion or rhinorrhea. Right Sinus: Maxillary sinus tenderness present. No frontal sinus tenderness. Left Sinus: Maxillary sinus tenderness present. No frontal sinus tenderness. Mouth/Throat: Lips: [place]. Mouth: Mucous membranes are moist. Pharynx: Oropharynx is clear. Posterior oropharyngeal erythema present. Tonsils: 2+ on the right. 2+ on the [...] Thought content normal. Judgment: Judgment normal. Vitals: 09/28/22 1737 BP: 102/80 BP Location: Right arm Patient Position: Sitting Pulse: 68 Resp: 16 Temp: 36.6 ??C (97.8 ??F) TempSrc: Tympanic SpO2: 98% Weight: 90.3 kg (199 lb) Height: 160 cm (5' 3 ) Assessment/Plan Augmentin as prescribed Discussed OTC decongestants for congestion- Sudafed/Mucinex/Flonase Motrin/Tylenol for pain/fever Antihistamines- Zyrtec, Benadryl can be used for runny nose. Mucinex Discussed hydration-Drink plenty of water & get plenty of rest A humidifier may also help with congestion May try sinus rinses or steam- Saline rinses Follow up with your PCP in 7 days if you are not getting better Diagnoses and all orders for this visit: Bacterial URI (Primary) - amoxicillin-clavulanate (Augmentin) 875-125 mg per tablet; Take 1 tablet by mouth 2 (two) times aday for 10 days No results found for this or any previous visit (from the past 4 hour(s)). Patient Education: Disposition Treatment plan including expectations, [...] ask questions, questions answered. Radha Srivastava NP documented in this encounter Plan of Treatment Not on file documented as of this encounter Visit Diagnoses Diagnosis Bacterial URI- Primary documented in this encounter Care Teams Electrician'S Assistant Relationship Specialty Start Date End Date Judith Walton NP [address] [place] [address] PCP - General 05/26/20 documented as of this encounter
--- OUTSIDE RECORDS SUMMARY | 2024-04-12 13:22 | XMS_ITS | Encounter Summary ---
Author Organization [facility] Medical [facility] Address [address] [place] [address] Care Team Providers Care Sand Molder Name Role Phone Judith Walton NP Primary Care Provider [phone] Reason for Visit * Reason Comments COVID-19 EVALUATION covid exposure Earache ear pain Nasal Congestion sinus pain and press ure/some chest congestion Encounter Details Date Type Department Care Team ([facility] Contact Info) Description 11/19/2020 12:30 PM CDT Office Visit [facility] [place] [address] [place] [id number] Ivette Michel, PATRICIA [address] [place] [address] Acute non-recurrent pansinusitis (Primary Dx) Social History Tobacco Use Types [...] Sign Reading Time Taken Comments Blood Pressure 126/84 11/19/2020 12:26 PM CDT Pulse 93 11/19/2020 12:26 PM CDT Temperature 36.4 ??C (97.6 ??F) 11/19/2020 12:26 PM C DT Respiratory Rate 18 11/19/2020 12:26 PM CDT Oxygen Saturation 98% 11/19/2020 12:26 PM CDT Inhaled Oxygen Concentration - - Weight 98.2 kg (216 lb 9.6 oz) 11/19/2020 12:26 PM CDT Height 165.2 cm (5' 5.04 ) 11/19/2020 12:26 PM C DT Body Mass Index 36 11/19/2020 12:26 PM CDT documented in this encounter Patient Instructions * Patient Instructions* Ivette Michel NP - 11/19/2020 12:30 PM CDT Complete your antibiotics. Take an otc decongestant for congestion. Motrin or Tylenol for fever or pain. An antihistamine such as Claritin, zyrtec or benadryl can be used for runny nose. Benadryl is more sedating. Drink plenty of fluids and get plenty of rest. Follow up with PMD in 3-5 days if you are not getting any better. A humidifier may also help with decongestion. documented in this encounter Ordered Prescriptions Prescription Sig Dispense Quantity Refills Last Filled Start Date End Date methylPREDNISolone (MEDROL DOSEPACK) 4 mg DosepackIndication s:Acute non-recurrent pansinusitis Take as directed on package. 21 tablet 11/19/2020 1 fluconazole (DIFLUCAN) 150 mg tabletIndications: Acute non-recurrent pansinusitis Take 1 tablet (150 mg total) by mouth as directed Take one tab now. Repeat in 7 days if symptoms persist. 2 tablet 11/19/2020 3 amoxicillin-clavul anate (AUGMENTIN) 875-125 mg per tabletIndications: Acute non-recurrent pansinusitis Take 1 tablet by mouth 2 (two) times a day for 10 days 20 tablet 11/19/2020 1 documented in this encounter Progress Notes * Ivette Michel NP - 11/19/2020 12:30 PM CDT Images from the original note were not included. Patient ID: Ambar Alatorre is a 35 y.o. female followed by Judith Walton NP Patient was wearing the following PPE: mask. MA was wearing the following PPE: mask, gown, gloves and face shield. Provider was wearing the following PPE: mask, gown, gloves and face shield. Chief Complaint Patient presents with ??? COVID-19 EVALUATION covid exposure ??? Earache ear pain ??? Nasal Congestion sinus pain and pressure/some chest congestion covid infection 04/08/2020 Pneumonia 05/2020 Exposed to covid throughout last few weeks URI This is a new problem. The current episode started 1 to 4 weeks ago. The problem has been graduallyworsening. There has been no fever. Associated symptoms include congestion, coughing, ear pain, headaches, shortness of breath, sinus pain and a sore throat. Pertinent negatives include no abdominal pain, chest pain, diarrhea, dysuria, nausea, neck pain, rash, rhinorrhea, sneezing, vomiting or wheezing. She has tried inhaler use (flonase, robitussin, tylenol) for the symptoms. Patient presents to clinic for assessment of Chief Complaint Patient presents with ??? COVID-19 EVALUATION covid exposure ??? Earache ear pain ??? Nasal Congestion sinus pain and pressure/some chest congestion . Patient reports DRY COUGH, NASAL CONGESTION, NASAL DRAINAGE and FATIGUE Patient reports this has been going on for 2 days. Patient with sick or suspected COVID-19 contacts: Yes Patient has following risks for COVID-19: none Patient has not been fully vaccinated for Covid-19. Patient works at [employer] Patient lives at home with boyfriend and children Review of Systems Constitutional: Negative for appetite change, chills, fatigue and fever. HENT: Positive for congestion, ear pain, postnasal drip, sinus pain and sore throat. Negative for rhinorrhea, sneezing and trouble swallowing. Eyes: Negative for pain, discharge, redness and itching. Respiratory: Positive for cough, chest tightness and shortness of breath. Negative for wheezing. Cardiovascular: Negative for chest pain and leg swelling. Gastrointestinal: Negative for abdominal pain, constipation, diarrhea, nausea and vomiting. Genitourinary: Negative for difficulty urinating, dysuria, frequency and urgency. Musculoskeletal: Negative for back pain, myalgias and neck pain. Skin: Negative for rash and wound. Allergic/Immunologic: Negative for environmental allergies and food allergies. Neurological: Positive for headaches. Negative for dizziness and weakness. Current Outpatient Medications Medication Sig Dispense Refill ??? albuterol HFA (PROVENTIL HFA,VENTOLIN HFA,PROAIR HFA) 90 mcg/actuation inhaler Inhale 2 puffs every 6 (six) hours as needed ??? cetirizine (ZyrTEC) 10 mg tablet Take 10 mg by mouth daily ??? escitalopram (LEXAPRO) 10 mg tablet Take 10 mg by mouth daily ??? fluticasone propionate (FLONASE) 50 mcg/actuation nasal spray Administer 2 sprays into affectednostril(s) daily ??? Lyllana 0.1 mg/24 hr UNWRAP AND APPLY 1 PATCH TO THE SKIN TWICE WEEKLY ??? montelukast (SINGULAIR) 10 mg tablet ??? omeprazole (PriLOSEC) 10 mg capsule Take 10 mg by mouth daily ??? amoxicillin-clavulanate (AUGMENTIN) 875-125 mg per tablet Take 1 tablet by mouth 2 (two) times a day for 10 days 20 tablet 0 ??? fluconazole (DIFLUCAN) 150 mg tablet Take 1 tablet (150 mg total) by mouth as directed Take onetab now. Repeat in 7 days if symptoms persist. 2 tablet 0 ??? ibuprofen (ADVIL,MOTRIN) 600 mg tablet Take 600 mg by mouth every 6 (six) hours as needed ??? methylPREDNISolone (MEDROL DOSEPACK) 4 mg Dosepack Take as directed on package. 21 tablet 0 No current facility-administered medications for this visit. Past Medical History: Diagnosis Date ??? Anxiety ??? Depression There is no immunization history on file for this patient. Social History Tobacco Use Smoking Status Current Every Day Smoker ??? Packs/day: 0.50 Smokeless Tobacco Never Used Vitals: 11/19/20 1226 BP: 126/84 BP Location: Right arm Patient Position: Sitting Pulse: 93 Resp: 18 Temp: 36.4 ??C (97.6 ??F) TempSrc: Temporal SpO2: 98% Weight: 98.2 kg (216 lb 9.6 oz) Height: 165.2 cm (5' 5.04 ) Physical Exam Vitals and nursing note reviewed. Constitutional: General: She is awake. Appearance: Normal appearance. She is well-developed, well-groomed and normal weight. HENT: Head: Normocephalic and atraumatic. Right Ear: External ear normal. A middle ear effusion is present. Left Ear: External ear normal. A middle ear effusion is present. Nose: Congestion present. Right Sinus: Maxillary sinus tenderness and frontal sinus tenderness present. Left Sinus: Maxillary sinus tenderness and frontal sinus tenderness present. Mouth/Throat: Lips: [place]. Mouth: Mucous membranes are moist. Pharynx: Oropharynx is clear. Eyes: General: Lids are normal. Conjunctiva/sclera: Conjunctivae normal. Pupils: Pupils are equal, round, and reactive to light. Cardiovascular: Rate and Rhythm: Normal rate and regular rhythm. Pulmonary: Effort: Pulmonary effort is normal. Breath sounds: Normal breath sounds. No wheezing. Abdominal: General: Bowel sounds are normal. Palpations: Abdomen is soft. Musculoskeletal: General: Normal range of motion. Cervical back: Normal range of motion and neck supple. Skin: General: Skin is warm and dry. Capillary Refill: Capillary refill takes less than 2 seconds. Neurological: Mental Status: She is alert and oriented to person, place, and time. Psychiatric: Behavior: Behavior normal. Behavior is cooperative. Assessment/Plan Diagnoses and all orders for this visit: Acute non-recurrent pansinusitis (Primary) - COVID-19 POC - amoxicillin-clavulanate (AUGMENTIN) 875-125 mg per tablet; Take 1 tablet by mouth 2 (two) times aday for 10 days - fluconazole (DIFLUCAN) 150 mg tablet; Take 1 tablet (150 mg total) by mouth as directed Take one tab now. Repeat in 7 days if symptoms persist. - methylPREDNISolone (MEDROL DOSEPACK) 4 mg Dosepack; Take as directed on package. Results for orders placed or performed in visit on 11/19/20 COVID-19 POC Result Value Ref Range COVID-19 Ag POC Presumptive Negative Presumptive Negative, Invalid Complete your antibiotics. Take an otc decongestant for congestion. Motrin or Tylenol for fever or pain. An antihistamine such as Claritin, zyrtec or benadryl can be used for runny nose. Benadryl is more sedating. Drink plenty of fluids and get plenty of rest. Follow up with PMD in 3-5 days if you are not getting any better. A humidifier may also help with decongestion. Discussed COVID testing reasoning Discussed symptomatic relief of symptoms Discussed need to return to ER for further evaluation including worsening fevers, shortness of breath, of other concerning symptoms Advised to rest and stay adequately hydrated Orders Placed This Encounter Procedures ??? COVID-19 POC Order Specific Question: Is the Patient experiencing symptoms consistent with COVID? Answer: Yes Order Specific Question: Date of Symptom Onset Answer: 11/14/2020 Order Specific Question: Is the patient hospitalized? [...] living setting? Answer: No Order Specific Question: Is the patient ? Answer: No Ivette Michel NP documented in this encounter Plan of Treatment Not on file documented as of this encounter Procedures Procedure Name Priority Date/Time Associated Diagnosis Comments COVID-19 POC Routine 11/19/2020 12:55 PM CDT Acute non-recurrent pansinusitis documented in this encounter Results * COVID-19 POC (11/19/2020 12:55 PM CDT) COVID-19 Ag POC (BD Veritor) Presumptive Negative Presumptive Negative, Invalid [facility] Nasal 11/19/2020 12:5 5 PM CDT us Ivette Michel NP POINT OF CARE TEST ORDERABLES Final Result [facility] [address] [place] [address] documented in this encounter Visit Diagnoses Diagnosis Acute non-recurrent pansinusitis- Primary documented in this encounter Discontinued Medications Medication Sig Discontinue Reason Start Date End Da te fluconazole (DIFLUCAN) 150 mg tablet Therapy completed 11/19/2020 documented as of this encounter Additional Health Concerns Infection Onset Date Last Indicated Resolved Time COVID: Suspected 11/19/2020 11/19/2020 11/19/2020 12:56 PM CDT documented as of this encounter Care Teams Sand Molder Relationship Specialty Start Date End Date Judith Walton NP [address] [place] [address] PCP - General 05/26/20 documented as of this encounter
--- OUTSIDE RECORDS SUMMARY | 2024-04-12 13:22 | XMS_ITS | Encounter Summary ---
Author Organization [facility] Healthcare Address [address] [place] [address] Care Team Providers Care Comptometer Operator Name Role Phone No, Physician Primary Care Provider [phone] Encounter Details Date Type Department Care Team (Latest Contact Info) Description 01/08/2020 10:42 PM CDT - 01/08/2020 11:19 PM CDT Hospital Encounter [facility] Discharge Disposition: Discharge to home or self care Social History Tobacco Use Types Packs/Day Years Used Date Smoking Tobacco: Never Assessed Comments No Sex and Gender Information Value Date Recorded Sex Assigned at Not on file Legal Sex Female 11:20 PM CDT Gender Identity Not on file Sexual Orientation Not on file documented as of this encounter Medications at Time of Discharge ibuprofen (ADVIL,MOTRIN) 600 mg tablet Take 1 tablet (600 mg total) by mouth every 6 (six) hours as needed 11/24/2017 01/16/2023 documented as of this encounter Discharge Disposition Disposition Code Departure Means Destination Discharge to home or self care documented in this encounter Plan of Treatment Not on file documented as of this encounter Visit Diagnoses Not on filedocumented in this encounter Care Teams Comptometer Operator Relationship Specialty Start Date End Date No, Physician PCP - General 01/08/20 05/25/20 documented as of this encounter
--- OUTSIDE RECORDS SUMMARY | 2024-04-12 13:22 | XMS_ITS | Encounter Summary ---
Author Organization [facility] Healthcare Address [address] [place] [id number] Care Team Providers Care Associate Relations Specialist Name Role Phone Judith Walton NP Primary Care Provider [phone] Reason for Visit * Reason Comments Shortness of Breath Encounter Details Date Type Department Care Team ([facility] st Contact Info) Description 05/26/2020 10:24 PM SOFTWARE QA MANAGER - 05/27/2020 1:58 AM SOFTWARE QA MANAGER Emergency [facility] Emergency Department [address] [place] [address] Thao Hicks MD [address] [place] [address] Shortness of breath (Primary Dx); Chest pain, unspecified type; Sinus headache Discharge Disposition: Discharge to home or self [...] Sign Reading Time Taken Comments Blood Pressure 103/65 05/27/2020 1:55 AM SOFTWARE QA MANAGER Pulse 84 05/27/2020 1:55 AM SOFTWARE QA MANAGER Temperature 37.4 ??C (99.3 ??F) 05/27/2020 1:13 AM CS T Respiratory Rate 17 05/27/2020 1:55 AM SOFTWARE QA MANAGER Oxygen Saturation 95% 05/27/2020 1:55 AM SOFTWARE QA MANAGER Inhaled Oxygen Concentration - - Weight 97.5 kg (215 lb) 05/26/2020 10:26 PM SOFTWARE QA MANAGER Height - - Body Mass Index 38.09 01/08/2020 11:34 PM CDT documented in this encounter Discharge Diagnoses Diagnosis Unspecified chronic bronchitis (HCC) - UNSPECIFIED CHRONIC BRONCHITIS Unspecified chronic bronchitis Chest pain, unspecified - CHEST PAIN, UNSPECIFIED Other specified disorders of nose and nasal sinuses - OTHER SPECIFIED DISORDERS OF NOSE AND NASAL SINUSES Headache, unspecified - HEADACHE, UNSPECIFIED Personal history of COVID-19 - PERSONAL HISTORY OF COVID-19 Acquired absence of both cervix and uterus - ACQUIRED ABSENCE OF BOTH CERVIX AND UTERUS Other correction (current) drug therapy - OTHER ASSISTED (CURRENT) DRUG THERAPY Nicotine dependence, cigarettes, uncomplicated - NICOTINE DEPENDENCE, CIGARETTES, UNCOMPLICATED documented in this encounter Discharge Instructions * Attachments The following attachments cannot be sent through Care Everywhere. * Chest Pain, Uncertain Cause (Mongolian) * Shortness of Breath (Customer Service Rep) (Mongolian) * Headache, Unspecified (Mongolian) documented in this encounter Medications at Time of Discharge cetirizine (ZyrTEC) 10 mg tabletIndications :Allergic Rhinitis Take 1 tablet (10 mg total) by mouth nightly omeprazole (PriLOSEC) 10 mg capsuleIndication s:acid reflux Take 1 capsule (10 mg total) by mouth nightly escitalopram (LEXAPRO) 10 mg tablet Take 1 tablet (10 mg total) by mouth daily 01/16/2023 estradioL (ESTRACE) 2 mg tablet 2 mg daily 11/02/2020 ibuprofen (ADVIL,MOTRIN) 600 mg tablet Take 1 tablet (600 mg total) by mouth every 6 (six) hours as needed 11/24/2017 01/16/2023 documented as of this encounter Discharge Disposition Disposition Code Departure Means Destination Discharge to home or self care documented in this encounter ED Notes * Thao Hicks MD - 05/26/2020 10:40 PM CST Triage Chief Complaint: Chief Complaint Patient presents with ??? Shortness of Breath Portions of the record may have been created with voice recognition software. Occasional wrong-word or '[id number]' substitutions may have occurred due to the inherent limitations of voice recognition software. Read the chart carefully and recognize, using context, where substitutions have occurred. H&P: Charity Alatorre is a 35 y.o. female with h/o chronic bronchitis, seasonal allergies, COVID recoveredin March, 2 months ago, presents for shortness of breath that started this evening prior to coming to the emergency department. She was lying in bed when it started, she got up to go to the bathroom it seems somewhat worse. She then noticed substernal chest pain, pressure radiating through to the left shoulder. Constant. No clear aggravating or relieving factors. Does endorse pleuritic chest pain. No cough. No hemoptysis. No fever. No leg swelling. No recent travel or surgery. No estrogen orbirth control. Has history of hysterectomy. No history of PE or DVT. No abnormal bleeding or black or bloody stool. No nausea vomiting. Tried taking her albuterol inhaler which did not help much. ROS: At least 10 systems reviewed and otherwise negative except as in the HPI. Past surgical history: Bladder stimulator placement, hysterectomy No past medical history on file. No past surgical history on file. HOME MEDICATIONS : cetirizine (ZyrTEC) 10 mg tablet escitalopram (LEXAPRO) 10 mg tablet estradioL (ESTRACE) 2 mg tablet omeprazole (PriLOSEC) 10 mg capsule Past medical history: Seasonal allergies, chronic bronchitis, tobacco use, neurogenic bladder, Medications: Flonase, cetirizine Albuterol, Singulair, escitalopram, omeprazole, tamsulosin for neurogenic bladder. Allergies Allergen Reactions ??? Latex Hives and Shortness of breath Social history: Smokes 8-10 cigarettes per day Nursing Notes Reviewed. Physical Exam: ED Triage Vitals [05/26/20 2228] Temp Pulse Resp BP SpO2 37.1 ??C (98.7 ??F) 118 16 131/81 99 % Temp src Heart Rate Source Patient Position BP Location FiO2 (%) -- -- -- -- -- GENERAL APPEARANCE: Awake and alert. No acute distress. Texting on phone. HEAD: Atraumatic. EYES: Sclera anicteric. EOMI. ENT: Tolerates saliva. Normal TMs bilaterally. No proptosis. Extraocular movements intact. No afferent pupillary defect. No pain to palpation over the sinuses. Normal oropharynx without exudate or erythema with midline uvula. NECK: Supple. Trachea midline. HEART: RRR. Radial pulses 2+. LUNGS: Respirations unlabored. CTAB. ABDOMEN: Soft. Non-tender. No guarding or rebound. EXTREMITIES: No acute deformities. Grossly Symmetrical calves without palpable cords. No edema. SKIN: Warm and dry. NEUROLOGICAL: No gross facial drooping. Moves all 4 extremities spontaneously. Normal speech and mental status. No ataxia noted. Symmetrical palate rise. Symmetrical face. Sensation to light touch isintact throughout. Normal gait. PSYCHIATRIC: Normal mood. I have reviewed and interpreted all of the currently available lab results from this visit (if applicable): Labs Reviewed D-DIMER, QUANTITATIVE - Abnormal Result Value D-Dimer 824 (*) CBC WITH AUTO DIFFERENTIAL WBC 6.7 Hgb 12.0 Hct 36.9 Plt 176 MPV 10.0 RBC 4.13 MCV 89.3 MCH 29.1 MCHC 32.5 RDW CV 12.1 RDW SD 39.7 NRBC abs 0.00 COMPREHENSIVE METABOLIC PANEL Sodium 136 Potassium, pl 3.7 Chloride 101 CO2 28 Anion gap 7 BUN 10 Creatinine 0.82 Glucose 118 Calcium 8.8 Bilirubin, total 0.4 Protein, pl 6.8 Albumin 4.0 Alk phos 73 ALT 19 AST 19 TROPONIN T Troponin T <0.01 HCG, BLOOD, QUANTITATIVE hCG, quant <5.0 DIFFERENTIAL AUTO Neutrophil abs 4.5 Imm gran abs 0.0 Lymphocyte abs 1.3 Monocyte abs 0.8 Eosinophil abs 0.1 Basophil abs 0.0 Neutrophil pct 67.6 Imm gran pct 0.3 Lymphocyte pct 19.3 Monocyte pct 11.3 Eosinophil pct 0.9 Basophil pct 0.6 EGFR GFR 92 Radiographs (if obtained): Report Reviewed: CTA Chest W Contrast Final Result 1. No acute pulmonary embolism. 2. No acute pulmonary parenchymal disease. 3. Hepatic steatosis. THIS IS AN ELECTRONICALLY VERIFIED FINAL REPORT 05/27/2020 12:36 AM - Electronically signed by Mack Talbert M.D. RT: RT Report ID: [id number] Reading Location: [id number] XR Chest Pa Lateral 2 Vw Final Result Minimal left perihilar infiltrates suggesting pneumonia. THIS IS AN ELECTRONICALLY VERIFIED FINAL REPORT 05/26/2020 11:22 PM - Electronically signed by Kirit Wood KT: KT Report ID: [id number] Reading Location: [place] [address] EKG (if obtained): (All EKGs are interpreted by myself in the absence of a block inspector) Sinus tachycardia with a rate of 112, otherwise normal intervals, normal axis, normal ST segments and normal T-waves. Possible T-wave flattening V3 through V6. No STEMI. No acute ischemic pattern. Noprevious for comparison. Impression: Sinus tachycardia. ED course/MDM: Vitals: 05/26/20 2245 05/26/20 2249 05/27/200 05/27/2044 BP: 111/72 115/65 112/62 Pulse: 115 93 91 Resp: Temp: SpO2: 99% 99% 97% 95% Weight: ED Course as of May 27 111 Time: 05/27 29 Comment: Patient now complaining of sinus pressure and headache. Treated with ketorolac, patient RTreceived dexamethasone for asthma exacerbation, also given some magnesium and fluids, also given Benadryl for possible sinus headache. Treated with DuoNeb. COVID recovered, unlikely to be related to COVID infection. By: Thao Hicks MD MDM: Wells criteria for pulmonary embolism: I am NOT Highly suspicious PE Heart rate < 100 No Immobilization for 3 days or surgery in the last 4 weeks No history of PE or DVT No hemoptysis No malignancy with treatment within 6 months or palliative Low risk group: 1.3% chance of PE in an ED population. Another study assigned scores <= 4 as ? PE Unlikely? and had a 3% incidence of PE. PERC: Age <50 HR<100 O2>95% No unilateral leg swelling No hemoptysis No recent surgery or trauma requiring general anesthesia No prior PE or DVT No hormone use Unable to PERC, D-dimer obtained, D-dimer elevated. No ripping tearing chest pain, No migratory [...] of acute cardiac event in next month. Not worst headache of life. Not maximal intensity at onset. Not acute onset. No fevers. No neck stiffness. No numbness or weakness. No rash or joint pain. No syncope. No trauma. No jaw claudication. No vision changes. Normal neuro exam. I estimate there is LOW risk for bacterial meningitis or subarachnoid hemorrhage. No history of trauma. Unlikely venous sinus thrombosis, giant cell arteritis, or other emergent cause of headache. No indication for head CT and LP at this time. I consider the discharge disposition reasonable. Charity Alatorre and I have discussed the heart score and likely sinus headache and risks, and we agree with discharging home with close follow-up. We also discussed returning to the Emergency Department immediately if new or worsening symptoms occur. We have discussed the symptoms which are most concerning that necessitate immediate return. Patient denies needing any refills of her current medications including her Zyrtec, albuterol, Flonase, Singulair, etc. Clinical Impression: 1. Shortness of breath 2. Chest pain, unspecified type 3. Sinus headache Disposition: Discharge (Please note that portions of this note may have been completed with a voice recognition program. Wrecker Operator errors occur. Please contact me for any clarification.) Thao Hicks MD 05/27/20 0113 WARE QA MANAGER * Elaine Johnson RN - 05/26/2020 10:24 PM CST Pt arrives via EMS for complaints of SOB. Pt was 98% on RA when EMS arrived to her house and is 98%on RA upon arrival to the ED. Pt took her inhaler at home when symptoms began with no relief. WARE QA MANAGER * Iwona Akers RN - 05/26/2020 10:24 PM CST Bed: [id number] Expected date: 05/26/20 Expected time: 10:20 PM Means of arrival: Ambulance Comments: [id number] Iwona Akers RN 05/26/20 2197 WARE QA MANAGER documented in this encounter Plan of Treatment Not on file documented as of this encounter Procedures Procedure Name Priority Date/Time Associated Diagnosis Comments CTA CHEST W CONTRAST ED 05/27/2020 12:21 AM SOFTWARE QA MANAGER EGFR STAT 05/26/2020 11:13 PM SOFTWARE QA MANAGER DIFFERENTIAL AUTO STAT 05/26/2020 11: 13 PM SOFTWARE QA MANAGER CBC WITH AUTO DIFFERENTIAL STAT 05/26/2020 11:13 PM SOFTWARE QA MANAGER D-DIMER, QUANTITATIVE STAT 05/26/2020 11:13 PM SOFTWARE QA MANAGER HCG, BLOOD, QUANTITATIVE STAT 05/26/2020 11:13 PM SOFTWARE QA MANAGER TROPONIN T STAT 05/26/2020 11:13 PM SOFTWARE QA MANAGER COMPREHENSIVE METABOLIC PANEL STAT 05/26/2020 11:13 PM SOFTWARE QA MANAGER XR CHEST PA LATERAL 2 VIEWS ED 05/26/2020 10:59 PM SOFTWARE QA MANAGER ECG 12-LEAD STAT 05/26/2020 10:48 PM SOFTWARE QA MANAGER documented in this encounter Results * CTA Chest W Contrast (05/27/2020 12:21 AM SOFTWARE QA MANAGER) Anatomical Region Laterality Modality Chest N/A Computed Tomogra phy 05/27/2020 12:0 6 AM SOFTWARE QA MANAGER Impressions 05/27/2020 12:39 AM SOFTWARE QA MANAGER 1. ??No acute pulmonary embolism. 2. ??No acute pulmonary parenchymal disease. 3. ??Hepatic steatosis. THIS IS AN ELECTRONICALLY VERIFIED FINAL REPORT 05/27/2020 12:36 AM - Electronically signed by Mack Talbert M.D. RT: RT D: ??05/27/2020 12:36 AM T: ??05/27/2020 12:36 AM Report ID: [id number] Reading Location: ??[id number] Narrative 05/27/2020 12:39 AM [facility] ?Imaging Result Name: CHARITY ALATORRE ? Ordering Phys: THAOPAMELA GONZALEZCHU Age: 35 ?Date of : 1985 ? Accession Number: [id number] Date of Service: 05/27/2020 ??Gender: F EXAM DESCRIPTION: ?? CTA CHEST W CONTRAST REASON FOR STUDY: ?? Shortness of breath beginning this evening; previous COVID positivity in March 2020 TECHNIQUE: ??CT angiogram of the chest performed with intravenous contrast using helical scanning technique with dynamic intravenous contrast injection, according to a pulmonary embolism protocol. Reconstructed coronal and sagittal MPR images reviewed. All images stored on PACS. ??3D MIP images rendered on scanning unit and reviewed at time of interpretation. Automated exposure control was used as a dose optimization technique for this examination. CONTRAST TYPE/DOSE: ?? 100 mL Optiray 350 injected via ??left forearm IV site. COMPARISON: ?? None available. FINDINGS: VASCULATURE: ??No identifiable acute pulmonary embolism. No thoracic aortic aneurysm. LUNGS: ??No acute airspace consolidation. ??No suspicious pulmonary nodule. Trachea and large airways are patent. PLEURA: ??No pleural effusion or pneumothorax. MEDIASTINUM/COREEN: ??No supraclavicular, mediastinal, or hilar lymphadenopathy. Small amount of residual thymic tissue within the anterior mediastinum. ??No significant abnormality of the thoracic esophagus, within the limitation of the CT technique. HEART: ??Heart size is normal in size. No pericardial effusion. AXILLA: ??No adenopathy. CHEST WALL: ??No appreciable masses. ??No subcutaneous air. HARDWARE/LINES/TUBES: ??None. UPPER ABDOMEN: ??Diffuse hepatic steatosis. MUSCULOSKELETAL: ??No suspicious abnormality. OTHER: ??No significant abnormality. Procedure Note Mack Talbert MD - 05/27/2020 [facility] Imaging Result Name: CHARITY ALATORRE Ordering Phys: THAO HICKS Age: 35 Date of : 1985 Accession Number: [id number] Date of Service: 05/27/2020 Gender: F EXAM DESCRIPTION: CTA CHEST W CONTRAST REASON FOR STUDY: Shortness of breath beginning this evening; previousCOVID positivity in March 2020 TECHNIQUE: CT angiogram of the chest performed with intravenouscontrast using helical scanning technique with dynamic intravenous contrastinjection, according to a pulmonary embolism protocol. Reconstructed coronal andsagittal MPR images reviewed. All images stored on PACS. 3D MIP images renderedon scanning unit and reviewed at time of interpretation. Automated exposure control was used as a dose optimization technique forthis examination. CONTRAST TYPE/DOSE: 100 mL Optiray 350 injected via left forearm IVsite. COMPARISON: None available. FINDINGS: VASCULATURE: No identifiable acute pulmonary embolism. No thoracic aortic aneurysm. LUNGS: No acute airspace consolidation. No suspicious pulmonarynodule. Trachea and large airways are patent. PLEURA: No pleural effusion or pneumothorax. MEDIASTINUM/COREEN: No supraclavicular, mediastinal, or hilarlymphadenopathy. Small amount of residual thymic tissue within the anterior mediastinum.No significant abnormality of the thoracic esophagus, within the limitationof the CT technique. HEART: Heart size is normal in size. No pericardial effusion. AXILLA: No adenopathy. CHEST WALL: No appreciable masses. No subcutaneous air. HARDWARE/LINES/TUBES: None. UPPER ABDOMEN: Diffuse hepatic steatosis. MUSCULOSKELETAL: No suspicious abnormality. OTHER: No significant abnormality. IMPRESSION: 1. No acute pulmonary embolism. 2. No acute pulmonary parenchymal disease. 3. Hepatic steatosis. THIS IS AN ELECTRONICALLY VERIFIED FINAL REPORT 05/27/2020 12:36 AM - Electronically signed by Mack Talbert M.D. RT: RT Report ID: [id number] Reading Location: [id number] us Thao Hicks MD IMG CT PROCEDURES Final Result * eGFR (05/26/2020 11:13 PM SOFTWARE QA MANAGER) Pathologist [facility] eGFR 92 mL/min/1.7 3 m2 [facility] PEDRAZA ([place]) Comment: Interpretive Data Reference Interval Normal ?>/= 90 mL/min/1.73m2 Mildly decreased* ? 60 - 89 mL/min/1.73m2 Mildly to moderately decreased ?45 - 59 mL/min/1.73m2 Moderately to severely decreased ??30 - 44 mL/min/1.73m2 Severely decreased ?15 - 29 mL/min/1.73m2 Kidney Failure ?< 15 ??mL/min/1.73m2 *Relative to young adult level Estimated glomerular filtration rate is determined by the CKD-EPI equation recommended by the National Kidney Foundation (KDIGO 2012 Clinical Practice Guideline for the Evaluation and Management of Chronic Kidney Disease. Kidney Intnl Suppl Apr 2012;3:1). The CKD-EPI equation should not be used for patients with unstable renal function and has not been validated in children and those over 70. Current interpretive data was last reviewed 2020 Blood specimen (specimen) 05/26/2020 11:13 PM SOFTWARE QA MANAGER 05/26/2020 11:16 PM SOFTWARE QA MANAGER us Thao Hicks MD LAB BLOOD ORDERABLES Fin al Result JOSIAH PEDRAZA ([place]) 1 [facility] [place] [address] * Differential, auto (05/26/2020 11:13 PM SOFTWARE QA MANAGER) Pathologist [facility] Neutrophil abs 4.5 1.7 - 6.5 K/cumm JOSIAH PEDRAZA ([place]) Imm gran abs 0.0 0.0 - 0.1 K/cumm [facility] ([place]) Lymphocyte abs 1.3 0.8 - 3.3 K/cumm [facility] ([place]) Monocyte abs 0.8 0.2 - 0.8 K/cumm [facility] ([place]) Eosinophil abs 0.1 0.0 - 0.5 K/cumm [facility] ([place]) Basophil abs 0.0 0.0 - 0.1 K/cumm [facility] ([place]) Neutrophil pct 67.6 % [facility] ([place]) Comment: Interpretive [...] was last revised on 2017. Lymphocyte pct 19.3 % [facility] ([place]) Comment: Interpretive Data Percent cell count reference ranges are not reported, since discordance with absolute values may lead to misinterpretation of CBC data. Current Interpretive Data was last revised on 2017. Monocyte pct 11.3 % [facility] ([place]) Comment: Interpretive Data Percent cell count reference ranges are not reported, since discordance with absolute values may lead to misinterpretation of CBC data. Current Interpretive Data was last revised on 2017. Eosinophil pct 0.9 % [facility] ([place]) Comment: Interpretive Data Percent cell count reference ranges are not reported, since discordance with absolute values may lead to misinterpretation of CBC data. Current Interpretive Data was last revised on 2017. Basophil pct 0.6 % [facility] ([place]) Comment: Interpretive Data Percent cell count reference ranges are not reported, since discordance with absolute values may lead to misinterpretation of CBC data. Current Interpretive Data was last revised on 2017. Blood specimen (specimen) 05/26/2020 11:13 PM SOFTWARE QA MANAGER 05/26/2020 11:16 PM SOFTWARE QA MANAGER Thao Hicks MD LAB BLOOD ORDERABLES Fin al Result Performing Organization Address [facility] Co de Phone Number JOSIAH PEDRAZA ([place]) 1 [facility] [place] [address] * hCG, blood, quantitative (05/26/2020 11:13 PM SOFTWARE QA MANAGER) hCG, quant <5.0 0.0 - 5.0 IUnits/L [facility]OSIAH PEDRAZA ([place]) Comment: Interpretive Data Non- Female premenopausal: < or = 5.0 IUnits/L Men: < 5.0 IUnits/L Weeks of Gestation ? Reference Interval ?? 3 to 6 ? 5.8-31,795 IUnits/L ?? 7 to 10 ? 3,697-186,977 IUnits/L ??12 to 15 ?27,832- 70,791 IUnits/L ??16 to 18 ? 9,040- 58,179 IUnits/L Current Interpretive Data was last revised on 2017. Blood specimen (specimen) 05/26/2020 11:13 PM SOFTWARE QA MANAGER 05/26/2020 11:16 PM SOFTWARE QA MANAGER Thao Hicks MD LAB BLOOD ORDERABLES Fin al Result Performing Organization Address City/[facility] Co de Phone Number JOSIAH PEDRAZA ([place]) 1 [facility] [email or web address] [address] * Troponin T (05/26/2020 11:13 PM SOFTWARE QA MANAGER) Troponin T <0.01 0.00 - 0.01 ng/mL [facility] PEDRAZA ([place]) Comment: Interpretive Data Reference ranges for children <18 years of age have not been established. - > or = 18 years: Serial determinations are recommended for the diagnosis of myocardial infarction. ??Temporal rise and fall are consistent with myocardial infarction when at least one value is above the 99th percentile upper reference limit for troponin assay. ??Journal of the [place] College of Cardiology 2012;60:1581-98. Current Interpretive Data Last Revised Date: 2017. Blood specimen (specimen) 05/26/2020 11:13 PM SOFTWARE QA MANAGER 05/26/2020 11:16 PM SOFTWARE QA MANAGER Thao Hicks MD LAB BLOOD ORDERABLES Fin al Result Performing Organization Address City/[facility]/ZIP Co de Phone Number JOSIAH PEDRAZA ([place]) 1 [facility] [employer] [place] [address] * (ABNORMAL) D-dimer, quantitative (05/26/2020 11:13 PM SOFTWARE QA MANAGER) D-Dimer 824(H) <=499 ng/mL FEU [facility]OSIAH PEDRAZA ([place]) Comment: Interpretive data FDA approved the D-dimer, [...] 68, VTE cut-off 680 ng/ml FEU. References; Schsloane HT et al. Brit Med J. 2013;346:f2492. Candelaria et al. Annals Int Med. 2015;163:701-11. Current interpretive data was last revised on 2019. Blood specimen (specimen) 05/26/2020 11:13 PM SOFTWARE QA MANAGER 05/26/2020 11:16 PM SOFTWARE QA MANAGER Thao Hicks MD LAB BLOOD ORDERABLES Fin al Result Performing Organization Address City/[facility]/ZIP Co de Phone Number JOSIAH PEDRAZA ([place]) 1 [facility] [employer] [place] [employer] [place] [address] * Comprehensive metabolic panel (05/26/2020 11:13 PM SOFTWARE QA MANAGER) Sodium 136 135 - 145 mmol/L [facility] ([place]) Potassium, pl 3.7 3.3 - 4.9 mmol/L [facility] ([place]) Chloride 101 97 - 110 mmol/L [facility] ([place]) CO2 28 22 - 32 mmol/L [facility] ([place]) Anion gap 7 2 - 15 mmol/L [facility] ([place]) BUN 10 8 - 25 mg/dL [facility] ([place]) Creatinine 0.82 0.60 - 1.10 mg/dL [facility] ([place]) Glucose 118 70 - 199 mg/dL [facility] ([place]) [...] classification and Diagnosis of Diabetes Diabetes Care 2017;40 (Suppl. 1):S11. Current interpretive data was last revised 2017. Calcium 8.8 8.5 - 10.3 mg/dL [facility] ([place]) Bilirubin, total 0.4 0.1 - 1.2 mg/dL [facility] ([place]) Protein, pl 6.8 6.5 - 8.5 g/dL [facility] ([place]) Albumin 4.0 3.5 - 5.0 g/dL [facility] ([place]) Alk phos 73 40 - 130 Units/L [facility] ([place]) ALT 19 7 - 45 Units/L [facility] ([place]) AST 19 10 - 45 Units/L [facility] ([place]) Blood specimen (specimen) 05/26/2020 11:13 PM SOFTWARE QA MANAGER 05/26/2020 11:16 PM SOFTWARE QA MANAGER us Thao Hicks MD LAB BLOOD ORDERABLES Fin al Result [facility] 1 [facility] [place] [address] * CBC with auto differential (05/26/2020 11:13 PM SOFTWARE QA MANAGER) WBC 6.7 3.8 - 9.9 K/cumm [facility] ([place]) Hgb 12.0 11.9 - 15.5 g/dL [facility] ([place]) Hct 36.9 35.6 - 45.5 % [facility] ([place]) Plt 176 150 - 400 K/cumm [facility] ([place]) MPV 10.0 9.1 - 12.3 fL [facility] ([place]) RBC 4.13 3.90 - 5.20 M/cumm [facility] ([place]) MCV 89.3 81.3 - 96.4 fL [facility] ([place]) MCH 29.1 27.1 - 33.3 pg [facility] ([place]) MCHC 32.5 32.3 - 35.7 g/dL [facility] ([place]) RDW CV 12.1 11.1 - 14.9 % [facility] ([place]) RDW SD 39.7 35.7 - 48.1 fL [facility] ([place]) NRBC abs 0.00 0.00 - 0.01 K/cumm [facility] ([place]) Blood specimen (specimen) 05/26/2020 11:13 PM SOFTWARE QA MANAGER 05/26/2020 11:16 PM SOFTWARE QA MANAGER us Thao Hicks MD LAB BLOOD ORDERABLES Fin al Result [facility] ([place]) 1 [facility] [place] [address] * XR Chest Pa Lateral 2 Vw (05/26/2020 10:59 PM SOFTWARE QA MANAGER) Anatomical Region Laterality Modality Body, Chest N/A Computed Radiogr aphy 05/26/2020 10:5 7 PM SOFTWARE QA MANAGER Impressions 05/26/2020 11:25 PM SOFTWARE QA MANAGER ?? Minimal left perihilar infiltrates suggesting pneumonia. THIS IS AN ELECTRONICALLY VERIFIED FINAL REPORT 05/26/2020 11:22 PM - Electronically signed by Kirit Wood KT: KT D: ??05/26/2020 11:21 PM T: ??05/26/2020 11:22 PM Report ID: [id number] Reading Location: ??[id number] Narrative 05/26/2020 11:25 PM [facility] ?Imaging Result Name: CHARITY ALATORRE ? Ordering Phys: THAO HICKS Age: 35 ?Date of : 1985 ? Accession Number: [id number] Date of Service: 05/26/2020 ??Gender: F EXAM DESCRIPTION: ?? XR CHEST PA LATERAL 2 VIEWS REASON FOR STUDY: ?? H/o chronic bronchitis, seasonal allergies, COVID recovered in March, 2 months ago, presents for SOB.Smoker.Duration: Tonight TECHNIQUE: ?? Frontal and lateral radiographic views of the chest acquired. COMPARISON: ?? None ??LUNGS/PLEURA: ??There is minimal infiltrate in the left perihilar region suggesting pneumonia. ??The lungs are otherwise clear. ??No pleural effusion. ??No pneumothorax. HEART/MEDIASTINUM: ??Heart size is normal. Normal mediastinal and hilar contours. HARDWARE/LINES/TUBES: ??None. BONES: ??No acute findings. OTHER: ??No other significant finding. Procedure Note Kirit Wood MD - 05/26/2020 [facility] Imaging Result Name: CHARITY ALATORRE Ordering Phys: THAO HICKS Age: 35 Date of : 1985 Accession Number: [id number] Date of Service: 05/26/2020 Gender: F EXAM DESCRIPTION: XR CHEST PA LATERAL 2 VIEWS REASON FOR STUDY: H/o chronic bronchitis, seasonal allergies, COVID recovered in March, 2 months ago, presents for SOB.Smoker.Duration:Tonight TECHNIQUE: Frontal and lateral radiographic views of the chestacquired. COMPARISON: None LUNGS/PLEURA: There is minimal infiltrate in the left perihilar region suggesting pneumonia. The lungs are otherwise clear. No pleural effusion. No pneumothorax. HEART/MEDIASTINUM: Heart size is normal. Normal mediastinal and hilar contours. HARDWARE/LINES/TUBES: None. BONES: No acute findings. OTHER: No other significant finding. IMPRESSION: Minimal left perihilar infiltrates suggesting pneumonia. THIS IS AN ELECTRONICALLY VERIFIED FINAL REPORT 05/26/2020 11:22 PM - Electronically signed by Kirit Wood KT: ANI Report ID: [id number] Reading Location: [id number] Thao Hicks MD IMG XR PROCEDURES Final Result * ECG 12 lead (05/26/2020 10:48 PM SOFTWARE QA MANAGER) 05/26/2020 10:4 8 PM SOFTWARE QA MANAGER Narrative [facility] - 05/27/2020 12:09 PM SOFTWARE QA MANAGER Vent Rate: 112 bpm RR Interval: 532 msec GA Interval: 144 msec QRS Duration: 93 msec QT Interval: 323 msec QTC Interval: 389 msec P-R-T [place]: 37 - 58 - 35 degrees SINUS TACHYCARDIA NONSPECIFIC T-WAVE ABNORMALITY ABNORMAL RHYTHM ECG Electronically Signed By: Felipe Prado MD Thao Hicks MD ECG ORDERABLES Final Re sult [facility] documented in this encounter Visit Diagnoses Diagnosis Shortness of breath- Primary Chest pain, unspecified type Sinus headache Headache documented in this encounter Administered Medications Inactive Administered Medications - up to 3 most recent administrations Medication Order MAR Action Action Date Dose Rate Site dexAMETHasone (DECADRON) injection solution 10 mg 10 mg, intravenous, Administer over 2 Minutes, Once, On Sun05/26/20 at 2241, For 1 dose Given 05/26/2020 10:54 PM SOFTWARE QA MANAGER 10 mg diphenhydrAMINE (BENADRYL) tab/cap 25 mg 25 mg, oral, Once, On Sun05/26/20 at 2348, For 1 dose Given 05/27/2020 12:04 AM SOFTWARE QA MANAGER 25 mg ioversoL (OPTIRAY 350) syringe syringe 125 mL 125 mL, intravenous, Once in imaging, contrast, Starting on Sun05/26/20 at 2356, For 1 dose Given 05/27/2020 12:16 AM SOFTWARE QA MANAGER 125 mL ipratropium-albuteroL (DUO-NEB) 0.5-2.5 mg/3 mL nebulizer solution 3 mL 3 mL, nebulization, Once (respiratory care specialist), On Sun05/26/20 at 2241, For 1 dose, Indications: Chronic Obstructive Pulmonary Disease with BronchospasmsIndications:Chr onic Obstructive Pulmonary Disease with Bronchospasms Given 05/26/2020 10:49 PM SOFTWARE QA MANAGER 3 mL ketorolac (TORADOL) 15 mg/mL injection 15 mg 15 mg, intravenous, Once, On Sun05/26/20 at 2348, For 1 dose, For Adult IV push, administer over 15 seconds, Indications: PainIndications:Pain Given 05/27/2020 12:04 AM SOFTWARE QA MANAGER 15 mg magnesium sulfate 2 g/50 mL in water (premix) 2 g 2 g, intravenous, Administer over 60 Minutes, Once, On Sun05/26/20 at 2349, For 1 dose New Bag 05/27/2020 12:04 AM SOFTWARE QA MANAGER 2 g sodium chloride 0.9% bolus 1,000 mL 1,000 mL, intravenous, at 1,000 mL/hr, Administer over 1 Hours, Once, On Sun05/26/20 at 2241, For 1 dose New Bag 05/26/2020 10:55 PM SOFTWARE QA MANAGER 1,000 mL 1000 mL/hr documented in this encounter Active and Recently Administered Medications Times are shown in SOFTWARE QA MANAGER. Scheduled Medication Order 05/25/2020 05/26/2020 05/27/2020 dexAMETHasone (DECADRON) injection solution 10 mg (COMPLETED) 10 mg, intravenous, Administer over 2 Minutes, Once, On Sun05/26/20 at 2241, For 1 dose 2254 (Given - Provider: Elaine Johnson RN) diphenhydrAMINE (BENADRYL) tab/cap 25 mg (COMPLETED) 25 mg, oral, Once, On Sun05/26/20 at 2348, For 1 dose 0004 (Given - Provid er: Elaine Johnson RN) ipratropium-albuteroL (DUO-NEB) 0.5-2.5 mg/3 mL nebulizer solution 3 mL (COMPLETED) 3 mL, nebulization, Once (respiratory care specialist), On Sun05/26/20 at 2241, For 1 dose, Indications: Chronic Obstructive Pulmonary Disease with Bronchospasms 2249 (Given - Provider: Juma Tapia, ENERGY BROKER) ketorolac (TORADOL) 15 mg/mL injection 15 mg (COMPLETED) 15 mg, intravenous, Once, On Sun05/26/20 at 2348, For 1 dose, For Adult IV push, administer over 15 seconds, Indications: Pain 0004 (Given - Provid er: Elaine Johnson RN) magnesium sulfate 2 g/50 mL in water (premix) 2 g (COMPLETED) 2 g, intravenous, Administer over 60 Minutes, Once, On Sun05/26/20 at 2349, For 1 dose 0004 (New Bag - Provider: Elaine Johnson RN)0113 (Stopped - Provider: Argelia Baires RN) sodium chloride 0.9% bolus 1,000 mL (COMPLETED) 1,000 mL, intravenous, at 1,000 mL/hr, Administer over 1 Hours, Once, On Sun05/26/20 at 2241, For 1 dose 2255 (New Bag - Provider: Elaine Johnson RN) 0005 (Stopped - Provider: Elaine Johnson RN) PRN Medication Order 05/25/2020 05/26/2020 05/27/2020 ioversoL (OPTIRAY 350) syringe syringe 125 mL (COMPLETED) 125 mL, intravenous, Once in imaging, contrast, Starting on Sun05/26/20 at 2356, For 1 dose 0016 (Given - Provid er: Laura Smith, RT) documented in this encounter Care Teams Associate Relations Specialist Relationship Specialty Start Date End Date Judith Walton NP [address] [place] [address] PCP - General 05/26/20 documented as of this encounter
--- OUTSIDE RECORDS SUMMARY | 2024-04-12 13:22 | XMS_ITS | Encounter Summary ---
Author Organization [facility] Healthcare Address [address] [place] [id number] Care Team Providers Care Laser Printing Operator Name Role Phone Judith Walton NP Primary Care Provider [phone] Encounter Details Date Type Department Care Team (Latest Contact Info) Description 05/26/2020 10:02 PM ASSOCIATE DIRECTOR DATA & ANALYTICS - 05/26/2020 10:23 PM ASSOCIATE DIRECTOR DATA & ANALYTICS Hospital Encounter [facility] Discharge Disposition: [...] on filedocumented in this encounter Care Teams Laser Printing Operator Relationship Specialty Start Date End Date Anton, Judith Salgado NP [address] [place] [address] PCP - General 05/26/20 documented as of this encounter
--- OUTSIDE RECORDS SUMMARY | 2024-04-12 13:22 | XMS_ITS | Encounter Summary ---
Author Organization [facility] Address [address] [facility] [address] [place] [id number] Care Team Providers Care Reeling Machine Operator Name Role Phone Judith Walton NP Primary Care Provider Reason for Visit * Reason Comments COVID-19 EVALUATION Possible COVID expos ure. Needs a rapid swab for work. Encounter Details Date Type Department Care Team ([facility] Contact Info) Description 11/02/2020 9:15 AM CDT Office Visit [facility] [address] [place] [address] Ashlee Lowe NP [address] [place] [id number] Close exposure to COVID-19 virus (Primary Dx) Social History Tobacco Use Types [...] Sign Reading Time Taken Comments Blood Pressure 110/72 11/02/2020 9:27 AM CDT Pulse 78 11/02/2020 9:27 AM CDT Temperature 36.1 ??C (97 ??F) 11/02/2020 9:27 AM CDT Respiratory Rate 16 11/02/2020 9:27 AM CDT Oxygen Saturation 98% 11/02/2020 9:27 AM CDT Inhaled Oxygen Concentration - - Weight 97.7 kg (215 lb 6.4 oz) 11/02/2020 9:27 A M CDT Height 165.2 cm (5' 5.04 ) 11/02/2020 9:27 AM CD T Body Mass Index 35.8 11/02/2020 9:27 AM CDT documented in this encounter Patient Instructions * Patient Instructions* Lowe Ashlee Colin, SCHOOL COMMISSIONER - 11/02/2020 9:15 AM CDT Instructions following testing for COVID-19: Today you received test for SARS-COV2 (COVID-19). Please follow the instructions below regarding quarantine and return to work/daycare/school based on your results, symptoms and exposures. If you are NEGATIVE, AND: 1. NO symptoms and NO known/possible exposure: NO need to isolate. 2. NO symptoms and YES known/possible exposure: quarantine for 14 days after last potential exposure. A negative test of a specific day cannot be used to release from quarantine since the patience could become positive during the 14- day period. 3. YES symptoms and NO known/possible exposure: quarantine until without fever for 24 hours AND symptoms improve. 4. YES symptoms and YES known/possible exposure: you must quarantine for 14 days from last known exposure date. A negative test of a specific day cannot be used to release from quarantine since the patient could become positive during the 14 day period. 5. YES symptoms and YES known/possible exposure and HAVE BEEN VACCINATED: you ONLY QUARANTINE untilyou are fever free AND symptoms improve. 6. NO symptoms and YES known/possible exposure and HAVE BEEN VACCINATED: NO RECOMMENDATION FOR QUARANTINE. If you are POSITIVE and NOT VACCINATED: You should isolate for 10 days from onset of symptoms, NOT FROM DATE OF POSITIVE TEST. You must be without fever for 24 hours AND symptoms improving AND released by the local health department. All household contacts must quarantine for 14 days from last potential exposure to positive patient. If household contacts cannot fully isolate, then quarantine for household contacts extends for 14 days beyond the 10 days from start of symptoms (may be up to 24 days of quarantine). ??? COVID-19 is a highly communicable disease (very contagious) that is spread through droplets viacough, sneeze, speech at close contact. ??? You will need to continue to wear a mask per CDC guidelines. ??? If at any time you feel significantly short of breath or chest pain/tightness, or change in mental status please go to the ER. If you are POSITIVE and VACCINATED: ??? Although the risk that fully vaccinated people could become infected with COVID-19 is low, any fully vaccinated person who experiences symptoms consistent with COVID-19 should isolate themselves from others, be clinically evaluated for COVID-19, and tested for SARS-CoV-2 if indicated. ??? The fully vaccinated people that test positive for COVID should quarantine for 10-days from theonset of symptoms. ??? The symptomatic fully vaccinated person should inform their healthcare provider of their vaccination status at the time of presentation to care. COVID-19 vaccines are effective at protecting you from getting sick. Based on what we know about COVID-19 vaccines, people who have been fully vaccinated can do things that they had stopped doing because of the pandemic. These recommendations can help you make decisions about daily activities after you are fully vaccinated. They are not intended for healthcare settings. Have You Been Fully Vaccinated? In general, people are considered fully vaccinated: ? 2 weeks after their second dose in a 2-dose series, such as the Pfizer or Moderna vaccines, or ? ? 2 weeks after a single-dose vaccine, such as Dieudonne & Dieudonne? s Wayne vaccine ??? If you don???t meet these requirements, regardless of your age, you are NOT fully vaccinated. Keep taking all precautions until you are fully vaccinated. If you have a condition or are taking medications that weaken your immune system, you may NOT be fully protected even if you are fully vaccinated. Talk to your healthcare provider. Even after vaccination, you may need to continue taking all precautions. What You Can Do? If you???ve been fully vaccinated: ??? You can resume activities that you did prior to the pandemic. ??? You can resume activities without wearing a mask or staying 6 feet apart, except where requiredby federal, state, local, nondalton, or territorial laws, rules, and regulations, including local business and workplace guidance. ??? If you travel in the [place], you do not need to get tested before or after travel or self-quarantine after travel. ??? You need to pay close attention to the situation at your international destination before traveling outside the [place]. ??? You do NOT need to get tested before leaving the [place] unless your destination requiresit. ??? You still need to show a negative test result or documentation of recovery from COVID-19 beforeboarding an international flight to the [place]. ??? You should still get tested 3-5 days after international travel. ??? You do NOT need to self-quarantine after arriving in the [place]. ??? If you???ve been around someone who has COVID-19, you do not need to stay away from others or get tested unless you have symptoms. ??? However, if you live or work in a correctional or half-way facility or a homeless jail and are around someone who has COVID-19, you should still get tested, even if you don???t have symptoms. What You Should Keep Doing? For now, if you???ve been fully vaccinated: ??? You will still need to follow guidance at your workplace and local businesses. ??? If you travel, you should still take steps to protect yourself and others. ??? Masks are required on planes, buses, trains, and other forms of public transportation travelinginto, within, or out of the [facility] and in [place] transportation hubs such as airports and stations. Travelers are not required to wear a mask in outdoor areas of a conveyance (like on a ferry orthe top deck of a bus). CDC recommends that travelers who are not fully vaccinated continue to weara mask and maintain physical distance when traveling. ??? Fully vaccinated international travelers arriving in the [place] are still required to get tested 3 days before travel by air into the [place] (or show documentation of recovery from COVID-19 in the past 3 months) and should still get tested 3-5 days after their trip. ??? You should still watch out for symptoms of COVID-19, especially if you???ve been around someonewho is sick. If you have symptoms of COVID-19, you should get tested and stay home and away from others. ??? People who have a condition or are taking medications that weaken the immune system, should talk to their healthcare provider to discuss their activities. They may need to keep taking all precautions to prevent COVID-19. What We Know? COVID-19 vaccines are effective at preventing COVID-19 disease, especially severe illness and . ??? COVID-19 vaccines reduce the risk of people spreading COVID-19. What We???re Still Learning ??? How effective the vaccines are against variants of the virus that causes COVID-19. Early data show the vaccines may work against some variants but could be less effective against others. ??? How well the vaccines protect people with weakened immune systems, including people who take immunosuppressive medications. ??? How long COVID-19 vaccines can protect people. ??? As we know more, CDC will continue to update our recommendations for both vaccinated and unvaccinated people. All information from CDC web site documented in this encounter Progress Notes * Ashlee Lowe NP - 11/02/2020 9:15 AM CDT Images from the original note were not included. Subjective/Objective Patient: Ambar Alatorre is a 35 y.o. female followed by Judith Walton NP COVID-19 ROS: Patient presents to clinic for assessment of Chief Complaint Patient presents with ??? COVID-19 EVALUATION Possible COVID exposure. Needs a rapid swab for work. . Reports NO SYMPTOMS Reports symptom duration of N/A Sick or suspected COVID-19 contacts: YES Patient has following risks for COVID-19: NONE History of prior COVID infection Vaccinated: NO Social History Tobacco Use Smoking Status Current Every Day Smoker ??? Packs/day: 0.50 Smokeless Tobacco Never Used Vitals: 11/02/20 0927 BP: 110/72 BP Location: Right arm Patient Position: Sitting Pulse: 78 Resp: 16 Temp: 36.1 ??C (97 ??F) TempSrc: Temporal SpO2: 98% Weight: 97.7 kg (215 lb 6.4 oz) Height: 165.2 cm (5' 5.04 ) Chief Complaint Patient presents with ??? COVID-19 EVALUATION Possible COVID exposure. Needs a rapid swab for work. Patient presents to clinic requesting COVID-19 swab after known/possible exposure. Exposure date 10/28/2020. States she works in [employer] for a local [employer]. Reports having been [employer] hiring event last and she was notified by another HR boarder steam that she was possibly exposed to COVID at hiring event. States she had COVID diagnosis in March 2020. Denies inocluation. Patient denies symptoms including fever, chills, n/v/d, excessive fatigue, loss of taste/smell, rhinorrhea, congestion, sinus pain/pressure, sore throat, cough. Review of Systems Constitutional: Negative for chills and fever. HENT: Negative for congestion, ear pain, rhinorrhea, sinus pressure, sinus pain, sneezing and sore throat. Eyes: Negative. Respiratory: Negative for cough, chest tightness, shortness of breath and wheezing. Cardiovascular: Negative for chest pain. Gastrointestinal: Negative for constipation, diarrhea, nausea and vomiting. Endocrine: Negative. Genitourinary: Negative. Musculoskeletal: Negative for arthralgias and myalgias. Skin: Negative. Allergic/Immunologic: Negative for environmental allergies. Neurological: Negative for headaches. Hematological: Negative for adenopathy. Psychiatric/Behavioral: Negative. Physical Exam Vitals and nursing note reviewed. Constitutional: Appearance: Normal appearance. HENT: Head: Normocephalic and atraumatic. Right Ear: External ear normal. Left Ear: External ear normal. Nose: Nose normal. Mouth/Throat: Mouth: Mucous membranes are moist. Pharynx: Oropharynx is clear. Cardiovascular: Rate and Rhythm: Normal rate and regular rhythm. Heart sounds: Normal heart sounds. Pulmonary: Effort: Pulmonary effort is normal. Breath sounds: Normal breath sounds. Musculoskeletal: General: Normal range of motion. Cervical back: Neck supple. Skin: General: Skin is warm and dry. Neurological: General: No focal deficit present. Mental Status: She is alert and oriented to person, place, and time. Psychiatric: Mood and Affect: Mood normal. Behavior: Behavior normal. Assessment/Plan Diagnoses and all orders for this visit: Close exposure to COVID-19 virus (Primary) - COVID-19 POC Orders Placed This Encounter Procedures ??? COVID-19 POC Order Specific Question: Is the Patient experiencing symptoms consistent with COVID? Answer: No Order Specific Question: Is the patient hospitalized? [...] Question: Is the patient ? Answer: No Results for orders placed or performed in visit on 11/02/20 COVID-19 POC Result Value Ref Range COVID-19 Ag POC Presumptive Negative Presumptive Negative, Invalid # known exposure to COVID-19, asymptomatic --should symptoms arise, OTC treatment including antihistamine, cough suppressant --not vaccinated: quarantine 14 days after last known exposure --ED presentation with one or more of the following symptoms: fever uncontrolled with antipyretics,shortness of breath, chest discomfort, uncontrolled n/v/d --f/u with PCP in 3-5 days if symptoms do not improve/worsen Patient Instructions: Instructions following testing for COVID-19: Today you received test for SARS-COV2 (COVID-19). Please follow the instructions below regarding quarantine and return to work/daycare/school based on your results, symptoms and exposures. If you are NEGATIVE, AND: 1. NO symptoms and NO known/possible exposure: NO need to isolate. 2. NO symptoms and YES known/possible exposure: quarantine for 14 days after last potential exposure. A negative test of a specific day cannot be used to release from quarantine since the patience could become positive during the 14- day period. 3. YES symptoms and NO known/possible exposure: quarantine until without fever for 24 hours AND symptoms improve. 4. YES symptoms and YES known/possible exposure: you must quarantine for 14 days from last known exposure date. A negative test of a specific day cannot be used to release from quarantine since the patient could become positive during the 14 day period. 5. YES symptoms and YES known/possible exposure and HAVE BEEN VACCINATED: you ONLY QUARANTINE untilyou are fever free AND symptoms improve. 6. NO symptoms and YES known/possible exposure and HAVE BEEN VACCINATED: NO RECOMMENDATION FOR QUARANTINE. If you are POSITIVE and NOT VACCINATED: You should isolate for 10 days from onset of symptoms, NOT FROM DATE OF POSITIVE TEST. You must be without fever for 24 hours AND symptoms improving AND released by the local health department. All household contacts must quarantine for 14 days from last potential exposure to positive patient. If household contacts cannot fully isolate, then quarantine for household contacts extends for 14 days beyond the 10 days from start of symptoms (may be up to 24 days of quarantine). ??? COVID-19 is a highly communicable disease (very contagious) that is spread through droplets viacough, sneeze, speech at close contact. ??? You will need to continue to wear a mask per CDC guidelines. ??? If at any time you feel significantly short of breath or chest pain/tightness, or change in mental status please go to the ER. If you are POSITIVE and VACCINATED: ??? Although the risk that fully vaccinated people could become infected with COVID-19 is low, any fully vaccinated person who experiences symptoms consistent with COVID-19 should isolate themselves from others, be clinically evaluated for COVID-19, and tested for SARS-CoV-2 if indicated. ??? The fully vaccinated people that test positive for COVID should quarantine for 10-days from theonset of symptoms. ??? The symptomatic fully vaccinated person should inform their healthcare provider of their vaccination status at the time of presentation to care. COVID-19 vaccines are effective at protecting you from getting sick. Based on what we know about COVID-19 vaccines, people who have been fully vaccinated can do things that they had stopped doing because of the pandemic. These recommendations can help you make decisions about daily activities after you are fully vaccinated. They are not intended for healthcare settings. Have You Been Fully Vaccinated? In general, people are considered fully vaccinated: ? 2 weeks after their second dose in a 2-dose series, such as the Pfizer or Moderna vaccines, or ? ? 2 weeks after a single-dose vaccine, such as Dieudonne & Dieudonne? s Wayne vaccine ??? If you don???t meet these requirements, regardless of your age, you are NOT fully vaccinated. Keep taking all precautions until you are fully vaccinated. If you have a condition or are taking medications that weaken your immune system, you may NOT be fully protected even if you are fully vaccinated. Talk to your healthcare provider. Even after vaccination, you may need to continue taking all precautions. What You Can Do? If you???ve been fully vaccinated: ??? You can resume activities that you did prior to the pandemic. ??? You can resume activities without wearing a mask or staying 6 feet apart, except where requiredby federal, state, local, [place], or territorial laws, rules, and regulations, including local business and workplace guidance. ??? If you travel in the [place], you do not need to get tested before or after travel or self-quarantine after travel. ??? You need to pay close attention to the situation at your international destination before traveling outside the [place]. ??? You do NOT need to get tested before leaving the [place] unless your destination requiresit. ??? You still need to show a negative test result or documentation of recovery from COVID-19 beforeboarding an international flight to the [place]. ??? You should still get tested 3-5 days after international travel. ??? You do NOT need to self-quarantine after arriving in the [place]. ??? If you???ve been around someone who has COVID-19, you do not need to stay away from others or get tested unless you have symptoms. ??? However, if you live or work in a correctional or half-way facility or a homeless jail and are around someone who has COVID-19, you should still get tested, even if you don???t have symptoms. What You Should Keep Doing? For now, if you???ve been fully vaccinated: ??? You will still need to follow guidance at your workplace and local businesses. ??? If you travel, you should still take steps to protect yourself and others. ??? Masks are required on planes, buses, trains, and other forms of public transportation travelinginto, within, or out of the [facility] and in [place] transportation hubs such as airports and stations. Travelers are not required to wear a mask in outdoor areas of a conveyance (like on a ferry orthe top deck of a bus). CDC recommends that travelers who are not fully vaccinated continue to weara mask and maintain physical distance when traveling. ??? Fully vaccinated international travelers arriving in the [place] are still required to get tested 3 days before travel by air into the [place] (or show documentation of recovery from COVID-19 in the past 3 months) and should still get tested 3-5 days after their trip. ??? You should still watch out for symptoms of COVID-19, especially if you???ve been around someonewho is sick. If you have symptoms of COVID-19, you should get tested and stay home and away from others. ??? People who have a condition or are taking medications that weaken the immune system, should talk to their healthcare provider to discuss their activities. They may need to keep taking all precautions to prevent COVID-19. What We Know? COVID-19 vaccines are effective at preventing COVID-19 disease, especially severe illness and . ??? COVID-19 vaccines reduce the risk of people spreading COVID-19. What We???re Still Learning ??? How effective the vaccines are against variants of the virus that causes COVID-19. Early data show the vaccines may work against some variants but could be less effective against others. ??? How well the vaccines protect people with weakened immune systems, including people who take immunosuppressive medications. ??? How long COVID-19 vaccines can protect people. ??? As we know more, CDC will continue to update our recommendations for both vaccinated and unvaccinated people. All information from CDC web site Brief: Treatment plan including expectations, follow up, and return precautions discussed with patient/parent, verbalizes understanding. Medication dosage, use, and potential adverse reactions discussed with patient/parent. Advised to follow up with PCP if symptoms do not resolve as expected or sooner if condition worsens. Signs/symptoms warranting ER evaluation reviewed. Patient and/or guardian was given an opportunity to ask questions, questions answered. ??? Patient was wearing the following PPE: mask. ??? MA wearing the following PPE: mask, gown, gloves, face shield. ??? Provider wearing the following PPE: mask, gown, gloves, face shield. Ashlee Lowe NP documented in this encounter Plan of Treatment Not on file documented as of this encounter Procedures Procedure Name Priority Date/Time Associated Diagnosis Comments COVID-19 POC Routine 11/02/2020 9:55 AM CDT Close exposure to COVID-19 virus documented in this encounter Results * COVID-19 POC (11/02/2020 9:55 AM CDT) COVID-19 Ag POC (BD Veritor) Presumptive Negative Presumptive Negative, Invalid [facility] Nasal 11/02/2020 9:55 AM CDT Ashlee Lowe SCHOOL COMMISSIONER POINT OF CARE TEST ORDERABL ES Final Result [facility] [address] [place] [address] documented in this encounter Visit Diagnoses Diagnosis Close exposure to COVID-19 virus- Primary documented in this encounter Discontinued Medications Medication Sig Discontinue Reason Start Date End Da te estradioL (ESTRACE) 2 mg tablet 2 mg daily 11/02/2020 documented as of this encounter Historical Medications * This list may reflect changes made after this encounter. montelukast (SINGULAIR) 10 mg tabletIndication s:Seasonal Allergic Rhinitis Take 1 tablet (10 mg total) by mouth nightly 10/30/2020 fluticasone propionate (FLONASE) 50 mcg/actuation nasal sprayIndications :Allergic Rhinitis Administer 2 sprays into affected nostril(s) as needed for allergies albuterol HFA (PROVENTIL HFA,VENTOLIN HFA,PROAIR HFA) 90 mcg/actuation inhalerIndicatio ns:Acute Asthma Attack,mild Inhale 2 puffs every 6 (six) hours as needed for wheezing or shortness of breath Lyllana 0.1 mg/24 hr UNWRAP AND APPLY 1 PATCH TO THE SKIN TWICE WEEKLY 10/22/2020 3 ibuprofen (ADVIL,MOTRIN) 600 mg tablet Take 1 tablet (600 mg total) by mouth every 6 (six) hours as needed 11/24/2017 3 fluconazole (DIFLUCAN) 150 mg tablet 10/29/2020 1 added in this encounter Care Teams Reeling Machine Operator Relationship Specialty Start Date End Date Judith Walton NP [address] [place] [address] PCP - General 2/10/21 documented as of this encounter
--- OUTSIDE RECORDS SUMMARY | 2024-04-12 13:22 | XMS_ITS | Encounter Summary ---
Author Organization [facility] Healthcare Address [address] [place] [address] Care Team Providers Care Assistant Superintendent Name Role Phone No, Physician Primary Care Provider [phone] Encounter Details Date Type Department Care Team (Late st Contact Info) Description 01/08/2020 11:20 PM CDT - 01/09/2020 2:18 AM CDT Emergency [facility] Emergency Department [address] [place] [address] Karen Gilman MD 1 [place] [address] Cannabis intoxication without complication (CMS/HCC) (Primary Dx) Discharge Disposition: Discharge to home [...] Sign Reading Time Taken Comments Blood Pressure 106/62 01/09/2020 12:45 AM CDT Pulse 88 01/09/2020 2:00 AM CDT Temperature 36.3 ??C (97.3 ??F) 01/08/2020 11:40 PM C DT Respiratory Rate 14 01/09/2020 2:00 AM CDT Oxygen Saturation 92% 01/09/2020 2:00 AM CDT Inhaled Oxygen Concentration - - Weight 97.5 kg (215 lb) 01/08/2020 11:34 PM CDT Height 160 cm (5' 3 ) 01/08/2020 11:34 PM CDT Body Mass Index 38.09 01/08/2020 11:34 PM CDT documented in this encounter Discharge Diagnoses Diagnosis Cannabis use, unspecified with intoxication, uncomplicated (HCC) - CANNABIS USE, UNSPECIFIED WITH INTOXICATION, UNCOMPLICATED documented in this encounter Discharge Instructions * Attachments The following attachments cannot be sent through Care Everywhere. * Cannabis Abuse (AfterCare(R) Instructions(ER/ED)) ([place]) documented in this encounter Medications at Time [...] documented in this encounter ED Notes * Karen Gilman MD - 01/09/2020 1:59 AM CDT HPI No chief complaint on file. Ambar is a 34-year-old female nonsmoker with no significant past medical history who comes to theER today for consuming edibles earlier tonight. She states she usually consumes them but may have taken a few more tonight. She says something is wrong she feels weird . When asked to describe in detail she cannot. No other complaints at this time Patient History There are no active problems to display for this patient. No past medical history on file. No past surgical history on file. No family history on file. Social History Tobacco Use ??? Smoking status: Not on file Substance Use Topics ??? Alcohol use: Not on file ??? Drug use: Not on file Social History Social History Narrative ??? Not on file Review of Systems Review of Systems Unable to perform ROS: Mental status change Physical Exam ED Triage Vitals Temp Pulse Resp BP SpO2 01/08/20 2340 01/08/20 2334 01/08/20 2334 01/08/20 2334 01/08/20 2334 36.3 ??C (97.3 ??F) 95 18 115/75 95 % Temp src Heart Rate Source Patient Position BP Location FiO2 (%) 01/08/20 2340 -- -- -- -- Temporal Physical Exam Vitals signs and nursing note reviewed. Constitutional: General: She is not in acute distress. Appearance: Normal appearance. She is not ill-appearing, toxic-appearing or diaphoretic. Comments: Appears intoxicated. Bilateral conjunctival erythema HENT: Head: Normocephalic and atraumatic. Ears: Comments: Hearing intact Nose: No congestion or rhinorrhea. Mouth/Throat: Mouth: Mucous membranes are dry. Comments: No drooling, no lip swelling, appears to have a dry mouth smacking her lips together. Eyes: General: No scleral icterus. Extraocular Movements: Extraocular movements intact. Conjunctiva/sclera: Conjunctivae normal. Pupils: Pupils are equal, round, and reactive to light. Neck: Musculoskeletal: Normal range of motion and neck supple. No neck rigidity. Comments: No JVD Cardiovascular: Comments: No apparent edema in Lower extremities Pulmonary: Effort: Pulmonary effort is normal. No respiratory distress. Comments: No significant tachypnea, no stridor, able to speak in full sentences, no accessory muscle use, no retractions, no nasal flaring Abdominal: General: Abdomen is flat. There is no distension. Tenderness: There is no abdominal tenderness (when patient directed to palpate their abdomen). Skin: Comments: No visible pallor, cyanosis or diaphoresis Neurological: General: No focal deficit present. Mental Status: She is alert and oriented to person, place, and time. Mental status is at baseline. Psychiatric: Mood and Affect: Mood normal. Comments: Looking around paranoid. Slightly anxious MDM MDM DISPOSITION:DISCHARGED 0200AM re-evaluated the patient, she states she feels better but now she feels tired. Family memberin the room who is willing to take her home. Discussed diagnosis and discharge. All questions answered. Discussed test results. Patient agrees with disposition. 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 Pt states her lips and face are numb. * Bam Ferraro RN - 01/08/2020 11:20 PM CDT Bed: ED16 Expected date: 01/08/20 Expected time: 11:11 PM Means of arrival: Ambulance Comments: 4A65 Bam Ferraro RN 01/08/200 documented in this encounter Plan of Treatment Not on file documented as of this encounter Procedures Procedure Name Priority Date/Time Associated Diagnosis Comments URINALYSIS AND REFLEX TO MICROSCOPIC AND CULTURE STAT 01/09/2020 1:17 AM CDT DRUGS OF ABUSE SCREEN, URINE WITHOUT CONFIRMATION STAT 01/09/2020 1:17 AM CDT EGFR STAT 01/09/2020 12:01 AM CDT DIFFERENTIAL AUTO STAT 01/09/2020 12: 01 AM CDT CBC WITH AUTO DIFFERENTIAL STAT 01/09/2020 12:01 AM CDT ETHANOL STAT 01/09/2020 12:01 AM CDT COMPREHENSIVE METABOLIC PANEL STAT 01/09/2020 12:01 AM CDT documented in this encounter Results * (ABNORMAL) Drugs of Abuse Screen, Urine without Confirmation (01/09/2020 1:17 AM CDT) Amphetamine, ur Not Detected CutOff 500ng/mL [facility] ([facility]) Comment: Interpretive Data - Amphetamines: ??Samples containing greater than 500 ng/mL d-methamphetamine ??or other cross-reacting amphetamine compounds are reported as positive. ??Amphetamine immunoassays are subject to significant false positive rates due to cross-reactivity of non-amphetamine drugs. Current Interpretive Data was last reviewed 2018. Barbiturates, ur Not Detected CutOff 200ng/mL [facility] ([facility]) Comment: Interpretive Data - Barbiturates: ??Samples containing greater than 200 ng/mL secobarbital or other cross-reacting barbiturate compounds are reported as positive. ??False positive and false negative results are possible. Current Interpretive Data was last reviewed 2018. Benzodiazepines, ur Not Detected CutOff 100ng/mL [facility] ([facility]) Comment: Interpretive Data - Benzodiazepines: ??Samples containing greater than 100 ng/mL nordiazepam or other cross-reacting compounds are reported as positive. ?? False positive and false negative results are possible. ?? Current Interpretive Data was last reviewed 2018. Cannabinoids, ur Detected(A) CutOff 50 ng/mL [facility] ([facility]) Comment: Interpretive Data - Cannabinoids: ??Samples containing greater than 50 ng/mL delta-9 THC -COOH or other cross-reacting compounds are reported as positive. ??False positive and false negative results are possible. ?? Current Interpretive Data was last reviewed 2018. Cocaine, ur Not Detected CutOff 150ng/mL [facility] ([place]) Comment: Interpretive Data - Cocaine: ??Samples containing greater than 150 ng/mL benzoylecgonine or other cross-reacting compounds are reported as positive. False positive and false negative results are possible. Current Interpretive Data was last reviewed 2018. Fentanyl, Ur Not Detected Cutoff 1 ng/mL [facility] ([facility]) Comment: Interpretive Data - Fentanyls: ??Samples containing greater than 1 ng/mL fentanyl or other cross-reacting fentanyl compounds are reported as detected. ??False positive and false negative results are possible. Current Interpretive Data was last reviewed 2018. Methadone, ur Not Detected CutOff 300ng/mL [facility] ([facility]) Comment: Interpretive Data - Methadone: ??Samples containing greater than 300 ng/mL d,l-methadone or other cross-reacting compounds are reported as positive. ??False positive and false negative results are possible. Current Interpretive Data was last reviewed 2018. Opiates, ur Not Detected CutOff 300ng/mL [facility] ([place]) Comment: Interpretive Data - Opiates: ??Samples containing greater than 300 ng/mL morphine or other cross-reacting compounds are reported as positive. ??False positive and false negative results are possible. Current Interpretive Data was last reviewed 2018. Oxycodone, ur Not Detected CutOff 100ng/mL [facility] ([place]) Comment: Interpretive Data - Oxycodone: ??Samples containing greater than 100 ng/mL oxycodone or other cross-reacting compounds are reported as positive. ??False positive and false negative results are possible. ?? Current Interpretive Data was last reviewed 2018. Phencyclidine, ur Not Detected CutOff 25 ng/mL [facility] ([place]) Comment: Interpretive Data - Phencyclidine: ??Samples containing greater than 25 ng/mL phencyclidine or other cross-reacting compounds are reported as positive. ??False positive and false negative results are possible. ?? Current Interpretive Data was last reviewed 2018. Urine Creatinine 210 mg/dL [facility] ([place]) Comment: Interpretive Data Urine Creatinine: < 10 mg/dL is extremely dilute = or > 10 but < 20 mg/dL is dilute = or > 20 mg/dL is normal Current Interpretive Data was last revised on 2017. Urine 01/09/2020 1:17 AM CDT 01/09/2020 1:18 AM CDT Narrative [facility] ([place]) - 01/09/2020 1:37 AM CDT Drug of Abuse screening is performed by immunoassay for medical purposes only. ??This is not to be used for Pain Management purposes. us Karen Gilman MD LAB URINE ORDERABLE S Final Result [facility] ([place]) 1 [facility] Department [place] [address] * (ABNORMAL) Urinalysis reflex to microscopic and culture Urine (01/09/2020 1:17 AM CDT) Color, ur Yellow Yellow [facility] ([facility]) Clarity, ur Turbid(A) Clear [facility] ([place]) Specific gravity, ur 1.032(H) 1.010 - 1.025 [facility] ([place]) pH, urine 5.5 [facility] ([place]) Protein, ur ql Trace Negative [facility] ([place]) Glucose, ur ql Negative Negative [facility] ([place]) Ketones, ur Negative Negative [facility] ([place]) Bilirubin, ur Negative Negative [facility] ([place]) Blood, ur Negative Negative [facility] ([place]) Urobilinogen, ur <2.0 <2.0 mg/dL [facility] ([place]) Nitrite, ur Negative Negative [facility] ([place]) Leukocyte esterase, ur Negative Negative [facility] ([place]) UA reflex comment Reflex conditions for microscopic UA and culture not met. [facility] ([place]) Urine 01/09/2020 1:17 AM CDT 01/09/2020 1:18 AM CDT Narrative [facility] ([facility]) - 01/09/2020 1:22 AM CDT ?? Urine pH is affected by diet, medications, systemic acid-base disturbances, and renal tubular function. ??pH may affect urinary stone formation. ??For example, urine pH below 6.0 may help reduce the tendency for calcium phosphate stones and pH greater than 6.0 may reduce the tendency for uric acid stone formation. Source: [facility]. Last revised 04-26-2017 us Karen Gilman MD LAB MICROBIOLOGY - GENERAL ORDERABLES Final Result [facility] ([facility]) 1 [facility] Department of Laboratories [place], [place] [id number] * eGFR (01/09/2020 12:01 AM CDT) eGFR 83 mL/min/1.7 3 m2 [facility] ([place]) Comment: Interpretive Data Reference Interval Normal ?>/= 90 mL/min/1.73m2 Mildly decreased* ? 60 - 89 mL/min/1.73m2 Mildly to moderately decreased ?45 - 59 mL/min/1.73m2 Moderately to severely decreased ??30 - 44 mL/min/1.73m2 Severely decreased ?15 - 29 mL/min/1.73m2 Kidney Failure ?< 15 ??mL/min/1.73m2 *Relative to young adult level If -[place] multiply value by 1.16. Estimated glomerular filtration rate is determined by [...] 70. Current interpretive data was last reviewed 2015. Blood specimen (specimen) 01/09/2020 12:01 AM CDT 01/09/2020 12:04 AM CDT us Karen Gilman MD LAB BLOOD ORDERABLE S Final Result [facility] ([place]) 1 [facility] Department [place] [address] * (ABNORMAL) Differential, auto (01/09/2020 12:01 AM CDT) Neutrophil abs 7.6(H) 1.7 - 6.5 K/cumm [facility] ([facility]) Imm gran abs 0.0 0.0 - 0.1 K/cumm [facility] ([place]) Lymphocyte abs 2.2 0.8 - 3.3 K/cumm [facility] ([place]) Monocyte abs 0.7 0.2 - 0.8 K/cumm [facility] ([place]) Eosinophil abs 0.3 0.0 - 0.5 K/cumm [facility] ([place]) Basophil abs 0.1 0.0 - 0.1 K/cumm [facility] ([place]) Neutrophil pct 70.3 % [facility] ([place]) Comment: Interpretive Data Percent cell count reference ranges are not reported, since discordance with absolute values may lead to misinterpretation of CBC data. Current Interpretive Data was last revised on 2017. Imm gran pct 0.2 % [facility] ([place]) Comment: Interpretive Data Percent cell count reference ranges are not reported, since discordance with absolute values may lead to misinterpretation of CBC data. Current Interpretive Data was last revised on 2017. Lymphocyte pct 20.6 % [facility] ([place]) Comment: Interpretive Data Percent cell count reference ranges are not reported, since discordance with absolute values may lead to misinterpretation of CBC data. Current Interpretive Data was last revised on 2017. Monocyte pct 6.1 % [facility] ([place]) Comment: Interpretive Data Percent cell count reference ranges are not reported, since discordance with absolute values may lead to misinterpretation of CBC data. Current Interpretive Data was last revised on 2017. Eosinophil pct 2.3 % [facility] ([place]) Comment: Interpretive Data Percent cell count reference ranges are not reported, since discordance with absolute values may lead to misinterpretation of CBC data. Current Interpretive Data was last revised on 2017. Basophil pct 0.5 % [facility] ([place]) Comment: Interpretive Data Percent cell count reference ranges are not reported, since discordance with absolute values may lead to misinterpretation of CBC data. Current Interpretive Data was last revised on 2017. Blood specimen (specimen) 01/09/2020 12:01 AM CDT 01/09/2020 12:04 AM CDT us Karen Gilman MD LAB BLOOD ORDERABLE S Final Result [facility] ([place]) 1 [facility] Department [place] [address] * Ethanol (01/09/2020 12:01 AM CDT) Ethanol <10 <=10 mg/dL [facility] ([facility]) Comment: Interpretive Data Legal limit of intoxication > or = 80 mg/dL Levels > or = 400 mg/dL are potentially TOXIC. Current interpretive data was last revised on 2018. Blood specimen (specimen) 01/09/2020 12:01 AM CDT 01/09/2020 12:04 AM CDT Karen Gilman MD LAB BLOOD ORDERABLE S Final Result [facility] ([facility]) 1 [facility] Department [place] [address] * Comprehensive metabolic panel (01/09/2020 12:01 AM CDT) Sodium 138 135 - 145 mmol/L [facility] ([place]) Potassium, pl 4.0 3.3 - 4.9 mmol/L [facility] ([place]) Chloride 102 97 - 110 mmol/L [facility] ([place]) CO2 26 22 - 32 mmol/L [facility] ([place]) Anion gap 10 2 - 15 mmol/L [facility] ([place]) BUN 16 8 - 25 mg/dL [facility] ([place]) Creatinine 0.90 0.60 - 1.10 mg/dL [facility] ([place]) Glucose 117 70 - 199 mg/dL [facility] ([place]) [...] interpretive data was last revised 2017. Calcium 9.0 8.5 - 10.3 mg/dL [facility] ([place]) Bilirubin, total 0.2 0.1 - 1.2 mg/dL [facility] ([place]) Protein, pl 6.6 6.5 - 8.5 g/dL [facility] ([place]) Albumin 4.0 3.5 - 5.0 g/dL [facility] ([place]) Alk phos 67 40 - 130 Units/L [facility] ([place]) ALT 21 7 - 45 Units/L [facility] ([place]) AST 18 10 - 45 Units/L [facility] ([place]) Blood specimen (specimen) 01/09/2020 12:01 AM CDT 01/09/2020 12:04 AM CDT us Karen Gilman MD LAB BLOOD ORDERABLE S Final Result [facility] ([place]) 1 [facility] Department [place] [address] * (ABNORMAL) CBC with auto differential (01/09/2020 12:01 AM CDT) WBC 10.9(H) 3.8 - 9.9 K/cumm [facility] ([facility]) Hgb 11.3(L) 11.9 - 15.5 g/dL [facility] ([place]) Hct 32.9(L) 35.6 - 45.5 % [facility] ([place]) Plt 223 150 - 400 K/cumm [facility] ([place]) MPV 10.2 9.1 - 12.3 fL [facility] ([place]) RBC 3.71(L) 3.90 - 5.20 M/cumm [facility] ([place]) MCV 88.7 81.3 - 96.4 fL [facility] ([place]) MCH 30.5 27.1 - 33.3 pg [facility] ([place]) MCHC 34.3 32.3 - 35.7 g/dL [facility] ([place]) RDW CV 11.8 11.1 - 14.9 % [facility] ([place]) RDW SD 37.9 35.7 - 48.1 fL [facility] ([place]) NRBC abs 0.00 0.00 - 0.01 K/cumm [facility] ([place]) Blood specimen (specimen) 01/09/2020 12:01 AM CDT 01/09/2020 12:04 AM CDT us Karen Gilman MD LAB BLOOD ORDERABLE S Final Result [facility] ([place]) 1 [facility] Department [place] [address] documented in this encounter Visit Diagnoses Diagnosis Cannabis intoxication without complication (CMS/HCC) (HCC)- Primary documented in this encounter Historical Medications * This list may reflect changes made after this encounter. cetirizine (ZyrTEC) 10 mg tabletIndications :Allergic Rhinitis Take 1 tablet (10 mg total) by mouth nightly omeprazole (PriLOSEC) 10 mg capsuleIndication s:acid reflux Take 1 capsule (10 mg total) by mouth nightly escitalopram (LEXAPRO) 10 mg tablet Take 1 tablet (10 mg total) by mouth daily 01/16/2023 estradioL (ESTRACE) 2 mg tablet 2 mg daily 11/02/2020 added in this encounter Orders Nursing Count Last Ordered Date First Orde red Date CARDIO RESPIRATORY MONITORING 1 01/08/2020 CONTINUOUS PULSE OXIMETRY 1 01/08/2020 IV Count Last Ordered Date First Orde red Date SALINE LOCK IV 1 01/08/2020 documented in this encounter Care Teams Assistant Superintendent Relationship Specialty Start Date End Date No, Physician PCP - General 01/08/20 05/25/20 documented as of this encounter
== END 2024-04-05 11:21 | disposition home or self-care (01) ==
PROVIDERS: Emergency Provider Registered Nurse; PCP Nurse Practitioner Family
DX: J01.10 Acute frontal sinusitis, unspecified (principal); B96.89 Other specified bacterial agents as the cause of diseases classified elsewhere; F17.210 Nicotine dependence, cigarettes, uncomplicated; Z79.899 Other long term (current) drug therapy
CPT/HCPCS: 87081; 87880; 99213; G0463

== ENCOUNTER 2024-06-03 09:05 | Emergency (ER) | payer OTHER, SELFPAY ==
--- OUTSIDE RECORDS SUMMARY | 2024-06-03 09:14 | XMS_ITS | Referral Summary ---
Author Organization [facility] Address [address] [place] [address] Care Team Providers Care Hand Tool Lapper Name Role Phone Judith Walton NP Primary Care Provider [phone] Khushbu Phan Unavailable [phone] Allergies Active Allergy Reactions Criticality Noted Date [...] 04/02/2018 Menorrhagia with irregular cycle 03/07/2017 Immunizations Immunization Administration Dates Next Due Influenza, Quadrivalent, Split, [...] 86 08/03/2023 8:14 AM CDT Temperature 36.4 C (97.5 F) 06/19/2023 8:25 AM VASC TECH Respiratory Rate 16 06/19/2023 7:35 AM VASC TECH Oxygen Saturation 97% 06/19/2023 8:25 AM VASC TECH Inhaled Oxygen Concentration - - Weight 99.8 kg (220 lb) 08/03/2023 8:14 AM CDT Height 160 cm (5' 3 ) 08/03/2023 8:14 AM CDT Body Mass Index 38.97 08/03/2023 8:14 AM CDT Plan of Treatment Not on file Medical Devices Implanted Type Area Excelsior Machine Feeder Device Identifier Shelf Expiration Date Model / Serial / Lot Med[employer]onic Inc Kit Lead Neurostimulator Percutaneous 4.32mm Spacing Interstim Surescan 28cm [id number] - [id number] Implanted:Qty: 1 on 06/18/2023 by Umesh Truong MD at [facility] Neurostimulator N/A: Buttocks Med[employer]onic Inc 02/05/2025 [id number] / / [id number] Description:Lead Neurostimul ator Percutaneous Med[employer]onic Inc Generator Neurostimulator Bowel Bladder Recharge Free Interstim [place] [id number] - [id number] Implanted:Qty: 1 on 06/18/2023 by Umesh Truong MD at [facility] Neurostimulator N/A: Buttocks Med[employer]onic Inc [id number] / / Description:GENERATOR NEUROS TIMULATOR BOWEL BLADDER RECHARGE Med[employer]onic Inc Envelope Absrb 2.7x2.5in Antibacterial Tyrx Medium Strl [id number] - [id number] Implanted:Qty: 1 on 06/18/2023 by Umesh Truong MD at [facility] Other - see comments N/A: Buttocks Med[employer]onic Inc 11/12/2023 [id number] / / Description:Neuro absorbable antibacterial envelop-medium [employer] System Biceps [place] Slotted Drill Guide 1.9mm Drill Fibertak Ar-3670 - [id number] Implanted:Qty: 1 on 03/27/2023 by Jayson Grijalva MD at [facility] Left: Shoulder [employer] 09/14/2027 [id number] / / [id number] [employer] Arthrex Fibertak Tape 3 Load Rotator Cuff [place] Suture Sterile Latex Free Ar-3633 - [id number] Implanted:Qty: 1 on 03/27/2023 by Jayson Grijalva MD at [facility] Left: Shoulder [employer] 05/16/2027 AR-3633 / / [id number] [employer] Swivelock C 4.75mm 19.1mm Closed Eyelet Vent [place] Suture Ar-[id number] - [id number] Implanted:Qty: 1 on 03/27/2023 by Jayson Grijalva MD at [facility] Left: Shoulder [employer] 01/13/2027 AR-2324 [facility] / / [id number] Insurance [facility] CHOICE PLUS [facility] CHOICE PLUS Advance Directives For more information, please contact: [phone] * Full Code (Latest Code Status on File) Date Activated Date Inactivated Comments 06/18/2023 12:21 PM 06/19/2023 3:28 PM Care Teams Hand Tool Lapper Relationship Specialty Start Date End Date Judith Walton NP [address] [place] [address] PCP - General 05/26/20 Khushbu Phan PA [address] [facility] [address], [place] [address] Physician Director Weights And Measures Orthopedic Surgery 03/27/23
--- OUTSIDE RECORDS SUMMARY | 2024-06-03 09:14 | XMS_ITS | Clinical Summary ---
Author Organization [facility] Address [address] [place] [address] Care Team Providers Care Social Work Assistant Name Role Phone Judith Walton NP Primary Care Provider [phone] Khushbu Phan Unavailable [phone] Allergies Active Allergy Reactions Criticality Noted Date [...] 36.4 C (97.5 F) 06/19/2023 8:25 AM ONCOLOGY SPECIALIST Respiratory Rate 16 06/19/2023 7:35 AM ONCOLOGY SPECIALIST Oxygen Saturation 97% 06/19/2023 8:25 AM ONCOLOGY SPECIALIST Inhaled Oxygen Concentration - - Weight 99.8 [...] this topic Medical Devices Implanted Type Area Manager Civil Device Identifier Shelf Expiration Date Model / Serial / Lot Medtronic Inc Kit Lead Neurostimulator Percutaneous 4.32mm Spacing Interstim Surescan 28cm [id number] - [id number] Implanted:Qty: 1 on 06/18/2023 by Umesh Truong MD at [facility] Neurostimulator N/A: Buttocks Medtronic Inc 02/05/2025 [id number] / / [id number] Description:Lead Neurostimul ator Percutaneous Medtronic Inc Generator Neurostimulator Bowel Bladder Recharge Free Interstim [id number] - [id number] Implanted:Qty: 1 on 06/18/2023 by Umesh Truong MD at [facility] Neurostimulator N/A: Buttocks Medtronic Inc [id number] / / Description:GENERATOR NEUROS TIMULATOR BOWEL BLADDER RECHARGE Medtronic Inc Envelope Absrb 2.7x2.5in Antibacterial Tyrx Medium Strl [id number] - [id number] Implanted:Qty: 1 on 06/18/2023 by Umesh Truong MD at [facility] Other - see comments N/A: Buttocks Medtronic Inc 11/12/2023 [id number] / / Description:Neuro absorbable antibacterial envelop-medium Arthrex Inc System Biceps [place] Slotted Drill Guide 1.9mm Drill Fibertak Ar-3670 - [id number] Implanted:Qty: 1 on 03/27/2023 by Jayson Grijalva MD at [facility] Left: Shoulder Ar[employer]rex Inc 09/14/2027 [id number] / / [id number] Arthrex Inc Arthrex Fibertak Tape 3 Load Rotator Cuff [place] Suture Sterile Latex Free Ar-3633 - [id number] Implanted:Qty: 1 on 03/27/2023 by Jayson Grijalva MD at [facility] Left: Shoulder [employer] Inc 05/16/2027 [id number]-3633 / / [id number] Ar[employer]rex Inc Swivelock C 4.75mm 19.1mm Closed Eyelet Vent [place] Suture Ar-2324bcc - [id number] Implanted:Qty: 1 on 03/27/2023 by Jayson Grijalva MD at [facility] Left: Shoulder [employer] Inc 01/13/2027 AR-2324 BCC / / [id number] Insurance [facility] CHOICE PLUS [facility] HMO/PPO Address: [address] [place] [address] [facility] CHOICE PLUS [facility] HMO/PPO Address: [id number] [place] [address] Advance Directives For more information, please contact: [phone] * Full Code (Latest Code Status on File) Date Activated Date Inactivated Comments 06/18/2023 12:21 PM 06/19/2023 3:28 PM Care Teams Social Work Assistant Relationship Specialty Start Date End Date Anton, Judith Salgado NP [address] [place], [place] [id number] PCP - General 05/26/20 Khushbu Phan PA [address], [place] [address] Physician Landfill Attendant Orthopedic Surgery 03/27/23
[2024-06-03 09:16] VITALS: BP 116/61; PULSE 86; RESP 20; TEMP 36.9; O2SAT 99
--- NOTE | 2024-06-03 09:30 | ED.URI ---
HPI - URI/Sore Throat General Chief Complaint: Upper Respiratory Infection Stated Complaint: throat/chest tight Time Seen by Provider: 06/03/24 09:31 Source: patient, RN notes reviewed and old records reviewed Mode of arrival: ambulatory Limitations: no limitations History of Present Illness HPI Narrative: A 39-year-old female presents to the [facility] with sore throat, body aches, cough, chest congestion that started on Sunday, 2 days ago. States that she tested negative for COVID last night. Has been tested positive yesterday for COVID Onset (ago): day(s) (2) Related Data Home Medications ?Medication ?Instructions ?Recorded ?Confirmed ?Last Taken ?Type montelukast 10 mg tablet 10 mg PO DAILY 03/06/19 04/05/24 Unknown History (Singulair) atorvastatin 10 mg tablet 10 mg PO DAILY 01/16/23 04/05/24 Unknown History lamotrigine 25 mg tablet 25 mg PO BID 01/16/23 04/05/24 Unknown History trazodone 50 mg tablet 50 mg PO HS 01/16/23 04/05/24 Unknown History bupropion HCl 150 mg 24 hr tablet, 150 mg PO DAILY 01/20/24 04/05/24 Unknown History extended release escitalopram oxalate 5 mg tablet 5 mg PO DAILY 01/20/24 04/05/24 Unknown History cetirizine 10 mg tablet (24Hour 10 mg PO DAILY PRN allergy symptoms 04/05/24 04/05/24 Unknown History Allergy) estradiol 2 mg tablet mg 04/05/24 Unknown History fluticasone propionate 50 intranasal 04/05/24 Unknown History mcg/actuation nasal spray,suspension Allergies Allergy/AdvReac Type Severity Reaction Status Date / Time latex Allergy Unknown RASH Verified 06/03/24 09:29 Review of Systems Review of Systems: All systems reviewed & are unremarkable except as noted in HPI and below Constitutional: Constitutional: Reports no additional constitutional complaints ENT: Reports as per HPI and Reports sore throat Cardiovascular: Cardiovascular: Reports no additional cardiovascular complaints, Denies chest pain and Denies dyspnea Respiratory: Respiratory: Reports as per HPI, Reports chest congestion, Reports cough and Denies dyspnea Musculoskeletal: Musculoskeletal: Reports no additional musculoskeletal complaints Integumentary/Breasts: Skin/Breast: Reports system reviewed and no additional complaints, except as docu PMFSH Past Medical History Medical History Pelvic floor dysfunction in female Presence of neurostimulator Pyelonephritis Anxiety Urinary retention Bronchitis Sinusitis Seasonal allergies Surgical History Surgical History S/P wisdom tooth extraction H/O tubal ligation H/O: hysterectomy Social History Social History Smoking packs per day: 0.5 Smoking cigarettes per day: 10.0 Years smoked: 25 Smoking pack-years: 12.50 Smoking status: Current every day smoker Tobacco type: cigarettes and e-cigarettes/vaping Additional smoking assessment comments: now vapes Living arrangements: with family Gender identity (if verbalized by the patient): Female Comments At the time of my signature, I reviewed and agree with the nursing past medical, surgical, social, and family history. There is no relevant family history pertinent to the patient complaint. Exam Const: General: cooperative, healthy appearing, comfortable, no acute distress, well developed, alert and well nourished Nutritional Appearance: well nourished Orientation/consciousness: patient oriented x3 Limitations: no limitations HENMT: Head: normal to inspection Ears: hearing grossly normal bilaterally, external ears normal, TM's normal bilaterally, mastoids normal, no periauricular adenopathy and Abnormal EAC present Mouth: Yes Normal oral and palatal mucosa present, Yes lip normal, Yes tongue normal and Yes moist mucous membranes Throat: posterior oropharynx normal, uvula midline and no uvular edema Eyes: General: appearance normal, both eyes and all related structures Alignment and Position: alignment normal Neck: Neck: normal visual inspection, full ROM, no lymphadenopathy and no meningeal signs Chest: Chest palpation & inspection: normal inspection of the chest Resp: Effort & Inspection: normal respiratory effort and able to speak in complete sentences Auscultation: clear to auscultation bilaterally, no crackles, no rales, no rhonchi and no wheezes Cardio: Rate: regular rate Skin: General skin exam: normal color and no rashes or lesions noted Neuro: General: patient oriented x3, gait normal, moves all extremities and no meningeal signs Cognition (Neuro): normal cognition Speech: normal speech Gait exam (Neuro): Normal gait present Extrem: General: normal to inspection, full ROM, capillary refill normal and normal gait Psych: Appearance: grossly normal and well kempt Mental Status: mental status grossly normal Speech and movement: Normal speech and movement present and Clear speech present Affect: normal affect Attitude: cooperative Course Course Level of Care: Express Care Visit Vital Signs Vital signs: Vital Signs Temperature 98.5 F 06/03/24 09:16 Pulse Rate 86 06/03/24 09:16 Respiratory Rate 20 06/03/24 09:16 Blood Pressure 116/61 06/03/24 09:16 Pulse Oximetry 99 06/03/24 09:16 Oxygen Delivery Room Air 06/03/24 09:16 Temperature 98.5 F 06/03/24 09:16 Pulse Rate 86 06/03/24 09:16 Respiratory Rate 20 06/03/24 09:16 Blood Pressure 116/61 06/03/24 09:16 Pulse Oximetry 99 06/03/24 09:16 Oxygen Delivery Room Air 06/03/24 09:16 Reviewed MDM - URI/Sore Throat MDM Narrative Medical decision making narrative: Patient sitting comfortably in exam room. Nontoxic, vitals stable. Patient in no acute distress. Patient presents with 2 day history of viral URI symptoms. Strep test is negative, COVID test positive. Patient appropriate for outpatient treatment with close follow-up Discharge instructions reviewed with patient, as well as provided in writing per nursing staff. The instructions also include specific and strict return/GO TO THE ER as well as f/u information. All questions have been answered, and the patient deny any further questions with discharge and discharge plan. Some parts of this dictation were generated by voice recognition software and may contain typographical and/or grammatical inaccuracies. Differential Diagnosis Differential diagnosis: Likely upper respiratory infection, otitis media, sinusitis, viral infection, bronchitis, influenza and pharyngitis Lab Data Labs: Lab Results 06/03/24 Range/Units 09:22 POC Influenza A Ag Negative (Negative) POC Influenza B Ag Negative (Negative) POC SARS CoV-2 Ag Positive (Negative) POC Grp A Strep Screen Negative (Negative) Reviewed Critical Care Time Critical Care Time Critical Care Time: No Discharge Plan Discharge Clinical Impression: COVID-19 Patient Disposition: Home, Self-Care Condition: Stable Instructions: Antibiotic Form, COVID-19 (Coronavirus Disease 2019) (ED), COVID-19: Slow the Coronavirus Spread (ED) Additional Instructions: Your rapid strep swab was negative today at [facility]. A throat culture will be sent to the laboratory for further testing. If the test is positive, you will receive a phone call within 48 hours and an appropriate antibiotic will be initiated at that time. Your rapid COVID test was positive As long as you are fever free for 24 hours you can return to work on Sunday. Be sure to wear mask for an additional 7 days Your rapid flu test was negative Your symptoms are likely due to a viral illness, which is not treated with antibiotics. Typically viral infections last 7-10 days, can linger for couple of weeks. It is very important to treat your symptoms. Drink plenty of water, Gatorade, Pedialyte, ice pops or Jell-O. -Alternate Tylenol and Motrin per package directions for fever or pain. You can alternate every 4 hours -Antihistamine medication such as Zyrtec/Claritin/Ashanti during the day can help improve symptoms. -doing daily nasal irrigations can help relieve pressure your sinuses. Things like a Neti pot -Use Flonase twice a day for 5 days then daily to help reduce the inflammation and dry up your sinuses. -You can also use Mucinex. Be sure to drink plenty of water with this medication at least 8 ounces with every dose and it is important to drink 8 to 10 glasses of water per day. Water is a natural decongestant -Eat and drink things that are easy to swallow, like tea or soup, or popsicles. -Oral rinses such as: Salt water gargles and/or may use topical anesthetic (eg. Chloraseptic spray) or lozenges to relieve dryness or throat pain). -Frequent hand washing or hand academic advisor is one of the best ways to prevent spread of infection. -Using a vaporizer or humidifier at night will also help thin secretions and help with coughing up phlegm. -Follow up with primary care provider in 7-10 days if condition is not improving - For new or worsening symptoms go directly to the nearest ER Patient Language: Albanian Prescriptions: No Action montelukast [Singulair] 10 mg Tablet 10 mg PO DAILY trazodone 50 mg tablet 50 mg PO HS atorvastatin 10 mg tablet 10 mg PO DAILY lamotrigine 25 mg tablet 25 mg PO BID bupropion HCl 150 mg tablet extended release 24 hr 150 mg PO DAILY escitalopram oxalate 5 mg tablet 5 mg PO DAILY estradiol 2 mg tablet fluticasone propionate 50 mcg/actuation spray,suspension INTRANASAL cetirizine [24Hour Allergy] 10 mg tablet 10 mg PO DAILY PRN (Reason: allergy symptoms) Follow-up/Referrals: Anton,Judith Cee APN [Primary Care Provider] - [facility] Stand Alone Forms: Work/School Release IP Time of Disposition: 09:37
[2024-06-03 09:52] LABS: EDCOVIDSCREEN Positive (Negative); EDINFLUASCREEN Negative (Negative); EDINFLUBSCREEN Negative (Negative); EDSTREPNEGPOS1 Negative (Negative)
== END 2024-06-03 09:40 | disposition home or self-care (01) ==
PROVIDERS: Emergency Provider Nurse Practitioner; PCP Nurse Practitioner Family
DX: U07.1 COVID-19 (principal); F41.9 Anxiety disorder, unspecified; Z96.82 Presence of neurostimulator; F17.210 Nicotine dependence, cigarettes, uncomplicated; F17.290 Nicotine dependence, other tobacco product, uncomplicated
CPT/HCPCS: 87081; 87426; 87804; 87880; 99213; G0463

== ENCOUNTER 2024-07-28 08:47 | Outpatient (CLI) | payer OTHER, SELFPAY ==
--- NOTE | ~2024-07-28 | CT_ITS ---
EXAMINATION: CT sinus wo con DATE: 07/28/2024 09:01 INDICATION: Acute frontal sinusitis TECHNIQUE: Computed tomography (CT) of the paranasal sinuses was performed without intravenous contra st. The dose-length product was 370.36 mGy-cm. Automated exposure control and iterative reconstructio n technique were employed. COMPARISON: None FINDINGS: Mild rightward nasal septal deviation. Ostiomeatal units are patent. No significant mucosal thickening. No air-fluid levels or mucoperiosteal reaction. Mastoids are pneumatized. There is a lef t-sided geronimo bullosa. IMPRESSION: 1. No significant sinus disease. Reviewed, dictated and finalized at location B.
== END 2024-07-28 08:48 | disposition home or self-care (01) ==
LOC: GOSHIMG 08:48
PROVIDERS: PCP Nurse Practitioner Family; Visit Provider Otolaryngology Otolaryngology/Facial Plastic Surgery
DX: J01.10 Acute frontal sinusitis, unspecified (principal); J34.2 Deviated nasal septum; J34.3 Hypertrophy of nasal turbinates; R51.9 Headache, unspecified
CPT/HCPCS: 70486

== ENCOUNTER 2024-10-12 09:18 | Emergency (ER) | payer OTHER, SELFPAY ==
[2024-10-12 09:28] VITALS: BP 118/76; PULSE 68; RESP 99; TEMP 36.7; O2SAT 99
--- NOTE | 2024-10-12 09:55 | ED_ITS ---
HPI - General Adult General Chief complaint: Upper Respiratory Infection Stated complaint: ear inf, ears hurts, jahaira Source: patient Mode of arrival: ambulatory Limitations: no limitations History of Present Illness HPI narrative: Patient presents for evaluation of sinus symptoms for more than a week. She reports sinus congestion, facial pressure, postnasal drainage, bilateral ear pain, green nasal discharge and chest congestion. She has a history of bacterial sinusitis and this feels similar. No chills, nausea, vomiting, diarrhea. She does smoke. Her mother was recently sick with respiratory symptoms. She has tried taking Mucinex and allergy medication without improvement. In the past she has responded well to Augmentin. Related Data Home Medications ?Medication ?Instructions ?Recorded ?Confirmed ?Last Taken ?Type montelukast 10 mg tablet 10 mg PO DAILY 03/06/19 07/14/24 Unknown History (Singulair) atorvastatin 10 mg tablet 10 mg PO DAILY 01/16/23 07/14/24 Unknown History lamotrigine 25 mg tablet 25 mg PO BID 01/16/23 07/14/24 Unknown History trazodone 50 mg tablet 50 mg PO HS 01/16/23 07/14/24 Unknown History bupropion HCl 150 mg 24 hr tablet, 150 mg PO DAILY 01/20/24 07/14/24 Unknown History extended release escitalopram oxalate 5 mg tablet 5 mg PO DAILY 01/20/24 07/14/24 Unknown History estradiol 2 mg tablet mg 04/05/24 07/14/24 Unknown History fluticasone propionate 50 intranasal 04/05/24 07/14/24 Unknown History mcg/actuation nasal spray,suspension albuterol sulfate 90 mcg/actuation 1 puff inhalation Q4H PRN 07/14/24 07/14/24 Unknown History aerosol inhaler (Ventolin HFA) cetirizine 10 mg tablet (24Hour 10 mg PO DAILY allergy symptoms 09/15/24 Unknown History Allergy) cholecalciferol (vitamin D3) 50 50 mcg PO DAILY 09/15/24 Unknown History mcg (2,000 unit) capsule Allergies Allergy/AdvReac Type Severity Reaction Status Date / Time latex Allergy Unknown RASH Verified 09/15/24 07:38 Review of Systems Review of Systems: CONSTITUTIONAL: Denies fever, chills, or sweats. EYES: Denies visual changes, redness, or discharge. ENT: Reports bilateral ear pain, nasal congestion, facial pressure, postnasal drainage, and green nasal discharge CARDIOVASCULAR: Denies chest pain, palpitations, or edema. RESPIRATORY: Reports chest congestion. Denies cough or dyspnea. GASTROINTESTINAL: Denies abdominal pain, nausea, vomiting, or diarrhea. GENITOURINARY: Denies dysuria or hematuria. SKIN: Denies rash or itching. MUSCULOSKELETAL: Denies back pain, joint pain, or myalgia. NEUROLOGIC: Denies headache, numbness, dizziness, or weakness. PSYCHIATRIC: Denies anxiety or depression. [facility] Past Medical History Medical History Snoring Sleep-disordered breathing Tonsil stone Chronic tonsillitis Sinus headache Hypertrophy of nasal turbinates Deviated nasal septum Pelvic floor dysfunction in female Presence of neurostimulator Pyelonephritis Anxiety Urinary retention Bronchitis Sinusitis Seasonal allergies Surgical History Surgical History S/P wisdom tooth extraction H/O tubal ligation H/O: hysterectomy Family History Family History Mother Family history unknown Social History Social History Smoking packs per day: 0.5 Smoking cigarettes per day: 10.0 Years smoked: 25 Smoking pack-years: 12.50 Smoking status: Former smoker Tobacco type: e-cigarettes/vaping Additional smoking assessment comments: now vapes Alcohol intake: never Substance use: never Substance use type: does not use Living arrangements: with family Gender identity (if verbalized by the patient): Female Exam Narrative: GENERAL: Well-appearing, well-nourished, and in no acute distress. HEAD: Normocephalic, atraumatic. EYES: PERRLA and EOMI. ENT: Nares clear, no rhinorrhea or epistaxis. Mucous membranes moist. Oropharynx without tonsillar hypertrophy exudate or other lesions. Bilateral TMs pearly becker nonbulging. There is frontal and bilateral maxillary sinus tenderness NECK: Supple. No adenopathy or masses. No carotid bruits or JVD CHEST: Clear to auscultation. No respiratory distress. No wheezes rales or rhonchi HEART: Regular rate and rhythm. No murmur heard. Normal peripheral pulses. ABDOMEN: Soft, nontender, nondistended, normal active bowel sounds. EXTREMITIES: Normal range of motion. No edema. SKIN: Warm, dry, no rash. NEURO: No focal deficits. Alert and oriented x3. PSYCH: Normal mood and affect. Course Course Emergency Course: This is a 39-year-old female who presented for evaluation of sinus symptoms. She meets criteria for ABRS as result of green mucopurulent nasal discharge and duration of time in which she has been symptomatic. Will discharge with Augmentin and Medrol Dosepak. Follow-up with primary provider. Go to the ER for worsening symptoms. Patient in agreement with plan of care. Level of Care: Express Care Visit Vital Signs Vital signs: Vital Signs Temperature 36.7 C 10/12/24 09:28 Pulse Rate 68 10/12/24 09:28 Respiratory Rate 99 H 10/12/24 09:28 Blood Pressure 118/76 10/12/24 09:28 Pulse Oximetry 99 10/12/24 09:28 Oxygen Delivery Room Air 10/12/24 09:28 Temperature 36.7 C 10/12/24 09:28 Pulse Rate 68 10/12/24 09:28 Respiratory Rate 99 H 10/12/24 09:28 Blood Pressure 118/76 10/12/24 09:28 Pulse Oximetry 99 10/12/24 09:28 Oxygen Delivery Room Air 10/12/24 09:28 Medical Decision Making Vital Signs Vital Signs: Vital Signs Temperature 36.7 C 10/12/24 09:28 Pulse Rate 68 10/12/24 09:28 Respiratory Rate 99 H 10/12/24 09:28 Blood Pressure 118/76 10/12/24 09:28 Pulse Oximetry 99 10/12/24 09:28 Oxygen Delivery Room Air 10/12/24 09:28 Temperature 36.7 C 10/12/24 09:28 Pulse Rate 68 10/12/24 09:28 Respiratory Rate 99 H 10/12/24 09:28 Blood Pressure 118/76 10/12/24 09:28 Pulse Oximetry 99 10/12/24 09:28 Oxygen Delivery Room Air 10/12/24 09:28 Discharge Plan Discharge Clinical Impression: Sinusitis Patient Disposition: Home Condition: Stable Instructions: Antibiotic Form, Sinusitis (ED) Patient Language: Omani Prescriptions: New amoxicillin-pot clavulanate 875-125 mg tablet 1 tablet PO Q12H Qty: 20 0RF methylprednisolone [Medrol (Dick)] 4 mg tablets,dose pack See Rx Instructions .ROUTE .COMPLEX Qty: 21 0RF Rx Instructions: for 6 days No Action montelukast [Singulair] 10 mg Tablet 10 mg PO DAILY trazodone 50 mg tablet 50 mg PO HS atorvastatin 10 mg tablet 10 mg PO DAILY lamotrigine 25 mg tablet 25 mg PO BID bupropion HCl 150 mg tablet extended release 24 hr 150 mg PO DAILY escitalopram oxalate 5 mg tablet 5 mg PO DAILY estradiol 2 mg tablet fluticasone propionate 50 mcg/actuation spray,suspension INTRANASAL cetirizine [24Hour Allergy] 10 mg tablet 10 mg PO DAILY cholecalciferol (vitamin D3) 50 mcg (2,000 unit) capsule 50 mcg PO DAILY albuterol sulfate [Ventolin HFA] 90 mcg/actuation HFA aerosol inhaler 1 puff inhalation Q4H PRN Follow-up/Referrals: Anton,Judith Cee APN [Primary Care Provider] - Time of Disposition: 09:50
== END 2024-10-12 09:55 | disposition home or self-care (01) ==
PROVIDERS: Emergency Provider Nurse Practitioner; PCP Nurse Practitioner Family
DX: J32.9 Chronic sinusitis, unspecified (principal); F17.290 Nicotine dependence, other tobacco product, uncomplicated; F41.9 Anxiety disorder, unspecified
CPT/HCPCS: 99213; G0463

== ENCOUNTER 2024-10-24 00:35 | Day surgery (SDC) | payer OTHER, SELFPAY ==
[2024-10-15 14:12] VITALS: BMI 39.0
--- NOTE | 2024-10-15 14:12 | PC.NURSE ---
Report to the Outpatient Waiting Room, entrance under the green pavilion located off [facility], at time _0730_ on date _[id number]_. Planned Procedure Time: _0930_.? Time changes happen often and if your time is changed the preop area will call you the afternoon before. - You and your visitor will be asked to self-screen and do not enter if you have any COVID symptoms. Please call surgeon if you need to reschedule. - A mask is optional within the hospital at this time. Patients may have clear liquids (water, carbonated beverages, clear teas, apple juice) until 3 hours prior to surgery with a maximum of 20 ounces. - No food from midnight until time of surgery and no smoking, or chewing tobacco (or any form of nicotine). No chewing gum, candy or mints. Take only the following medications with a SIP of water on the morning of surgery: ___Bupropion and if needed may use Albuterol and or Flonase.____ DO NOT STOP ANY OF YOUR OTHER PRESCRIPTION MEDICATIONS PRIOR TO SURGERY EXCEPT THE FOLLOWING Hold all vitamins and supplements for 3 days per anesthesiologist. Medications to discontinue per physician Date to take last dose Please no make-up, nail martiniquais, hairspray, perfume, deodorant, or body powder the day of surgery.? No jewelry (including any body piercings) or valuables the day of surgery, leave them at home.? Please take a shower or bath the night before, or the morning of, surgery with an antibacterial soap.? Wear comfortable, loose fitting clothing.? - Jewelry must be removed prior to entering the operating room.? Rings and piercings that are not removed may be cut off. - The hospital will not accept responsibility for valuables.? - Please leave all valuables, including medications, at home the day of surgery. If you are going home after surgery, a licensed regional company flatbed truck driver must drive you home.? - NO public transportation without another adult if you receive anesthesia. - We recommend that an adult stay with you for 24 hours following discharge. - We also recommend that you do not drive, make important decision, drink alcoholic beverages, or take any drugs that were not prescribed by your health care provider for at least 24 hours after your discharge time. Follow any additional instructions given to you from your surgeon. Telephone instructions given to __Ambar___and asked if any additional questions and then verbalized understanding. Patient advised to call surgeon office or pre surgery nurse liaison [phone] if any additional questions.
[2024-10-24] VITALS (7 sets, daily range): BP systolic 104–116; BP diastolic 52–70; PULSE 62–91; RESP 10–20; TEMP 36.4–36.9; O2SAT 97–100
--- OUTSIDE RECORDS SUMMARY | 2024-10-24 00:37 | XMS_ITS | Clinical Summary ---
Author Organization [facility] Address [address] [place] [address] Care Team Providers Care Underwater Hunter Trapper Name Role Phone Judith Walton NP Primary Care Provider [phone] Khushbu Phan Unavailable [phone] Allergies Active Allergy Reactions Criticality Noted Date [...] 36.4 C (97.5 F) 06/19/2023 8:25 AM GENERATOR SWITCHBOARD OPERATOR Respiratory Rate 16 06/19/2023 7:35 AM GENERATOR SWITCHBOARD OPERATOR Oxygen Saturation 97% 06/19/2023 8:25 AM GENERATOR SWITCHBOARD OPERATOR Inhaled Oxygen Concentration - - Weight 99.8 kg (220 lb) 08/03/2023 8:14 AM CDT Height 160 cm (5' 3) 08/03/2023 8:14 AM CDT Body Mass Index 38.97 08/03/2023 8:14 AM CDT Plan of Treatment Health Maintenance Due Date Last Done Comments Breast Cancer Screening-Mammogram 1984 Depression Screening 1984 Hepatitis C Screening 1984 DTaP/Tdap/Td Vaccine (1 - Tdap) 1995 Varicella Vaccines (1 of 2 - 13+ 2-dose series) 1997 Hepatitis B Screening 2002 Regular Well Visit/Exam 18-64 2002 Influenza Vaccine (Season Ended) 2024 01/26/2018, 01/09/2017, 01/06/2017, Additional history exists HPV Vaccines Aged Out No longer eligi ble based on patient's age to complete this topic Pneumococcal vaccine <65 Aged Out No longer eligible based on patient's age to complete this topic Medical Devices Implanted Type Area Block Press Operator Device Identifier Shelf Expiration Date Model / Serial / Lot Medtronic Inc Kit Lead Neurostimulator Percutaneous 4.32mm Spacing Interstim Surescan 28cm [id number] - [id number] Implanted:Qty: 1 on 06/18/2023 by Umesh Truong MD at [facility] Neurostimulator N/A: Buttocks Medtronic Inc 02/05/2025 [id number] / / [id number] Description:Lead Neurostimul ator Percutaneous Medtronic Inc Generator Neurostimulator Bowel Bladder Recharge Free Interstim X [id number] - [id number] Implanted:Qty: 1 on 06/18/2023 by Umesh Truong MD at [facility] Neurostimulator N/A: Buttocks Medtronic Inc [id number] / / Description:GENERATOR NEUROS TIMULATOR BOWEL BLADDER RECHARGE Medtronic Inc Envelope Absrb 2.7x2.5in Antibacterial Tyrx Medium Strl [id number] - [id number] Implanted:Qty: 1 on 06/18/2023 by Umesh Truong MD at [facility] Other - see comments N/A: Buttocks Medtronic Inc 11/12/2023 [id number] / / Description:Neuro absorbable antibacterial envelop-medium Arthrex Inc System Biceps [place] Slotted Drill Guide 1.9mm Drill Fibertak Ar-3670 - [id number] Implanted:Qty: 1 on 03/27/2023 by Jayson Grijalva MD at [facility] Left: Shoulder Arthrex Inc 09/14/2027 [id number] / / [id number] Arthrex Inc Arthrex Fibertak Tape 3 Load Rotator Cuff [place] Suture Sterile Latex Free Ar-3633 - [id number] Implanted:Qty: 1 on 03/27/2023 by Jayson Grijalva MD at [facility] Left: Shoulder Arthrex Inc 05/16/2027 AR-3633 / / [id number] Arthrex Inc Swivelock C 4.75mm 19.1mm Closed Eyelet Vent [place] Suture Ar-2324bcc - [id number] Implanted:Qty: 1 on 03/27/2023 by Jayson Grijalva MD at [facility] Left: Shoulder Arthrex Inc 01/13/2027 AR-2324 [facility] / / [id number] Insurance [facility] CHOICE PLUS [facility] CHOICE PLUS Advance Directives For more information, please contact: [phone] * Full Code (Latest Code Status on File) Date Activated Date Inactivated Comments 06/18/2023 12:21 PM 06/19/2023 3:28 PM Care Teams Underwater Hunter Trapper Relationship Specialty Start Date End Date Walton, Judith Salgado NP [address] [place], [place] [id number] PCP - General 05/26/20 Khushbu Phan PA [address] [address] Physician Adobe Layer Helper Orthopedic Surgery 03/27/23
--- OUTSIDE RECORDS SUMMARY | 2024-10-24 00:37 | XMS_ITS | Referral Summary ---
Author Organization [facility] Address [address] [place] [address] Care Team Providers Care Mechanical Spreader Operator Name Role Phone Judith Walton NP Primary Care Provider [phone] Khushbu Phan Unavailable [phone] Allergies Active Allergy Reactions Criticality Noted Date [...] 36.4 C (97.5 F) 06/19/2023 8:25 AM SECTION CREWS ACTIVITIES CLERK Respiratory Rate 16 06/19/2023 7:35 AM SECTION CREWS ACTIVITIES CLERK Oxygen Saturation 97% 06/19/2023 8:25 AM SECTION CREWS ACTIVITIES CLERK Inhaled Oxygen Concentration - - Weight 99.8 kg (220 lb) 08/03/2023 8:14 AM CDT Height 160 cm (5' 3) 08/03/2023 8:14 AM CDT Body Mass Index 38.97 08/03/2023 8:14 AM CDT Plan of Treatment Not on file Medical Devices Implanted Type Area Mechanical Integrity Engineer Device Identifier Shelf Expiration Date Model / Serial / Lot Medtronic Inc Kit Lead Neurostimulator Percutaneous 4.32mm Spacing Interstim Surescan 28cm [id number] - [id number] Implanted:Qty: 1 on 06/18/2023 by Umesh Truong MD at [facility] Neurostimulator N/A: Buttocks Medtronic Inc 02/05/2025 [id number] / / [id number] Description:Lead Neurostimul ator Percutaneous Medtronic Inc Generator Neurostimulator Bowel Bladder Recharge Free Interstim X [id number] - [id number] Implanted:Qty: 1 on 06/18/2023 by Umesh Truong MD at [facility] Neurostimulator N/A: Buttocks Medtronic Inc [id number] / / Description:GENERATOR NEUROS TIMULATOR BOWEL BLADDER RECHARGE Medtronic Inc Envelope Absrb 2.7x2.5in Antibacterial Tyrx Medium Strl [id number] - [id number] Implanted:Qty: 1 on 06/18/2023 by Umesh Truong MD at [facility] Other - see comments N/A: Buttocks Medtronic Inc 11/12/2023 [id number] / / Description:Neuro absorbable antibacterial envelop-medium Arthrex Inc System Biceps [place] Slotted Drill Guide 1.9mm Drill Fibertak Ar-3670 - [id number] Implanted:Qty: 1 on 03/27/2023 by Jayson Grijalva MD at [facility] Left: Shoulder Arthrex Inc 09/14/2027 AR-3670 / / [id number] Arthrex Inc Arthrex Fibertak Tape 3 Load Rotator Cuff [place] Suture Sterile Latex Free Ar-3633 - [id number] Implanted:Qty: 1 on 03/27/2023 by Jayson Grijalva MD at [facility] Left: Shoulder Ar[employer]rex Inc 05/16/2027 AR-3633 / / [id number] Arthrex Inc Swivelock C 4.75mm 19.1mm Closed Eyelet Vent [place] Suture Ar-2324bcc - [id number] Implanted:Qty: 1 on 03/27/2023 by Jayson Grijalva MD at [facility] Left: Shoulder Arthrex Inc 01/13/2027 AR-2324 [facility] / / [id number] [facility] CHOICE PLUS [facility] HMO/PPO Address: [address] [address] [place] [address] [facility] CHOICE PLUS [facility]/PPO Address: [place] [address] Advance Directives For more information, please contact: [phone] * Full Code (Latest Code Status on File) Date Activated Date Inactivated Comments 06/18/2023 12:21 PM 06/19/2023 3:28 PM Care Teams Mechanical Spreader Operator Relationship Specialty Start Date End Date Judith Walton NP [address] [place] [address] PCP - General 05/26/20 Khushbu Phan PA [address] [address] Physician Milk Powder Grinder Orthopedic Surgery 03/27/23
--- NOTE | 2024-10-24 06:39 | ECG_ITS ---
Test Date: 2024-10-24 08:11:41 Measurements Intervals [place] Rate: 61 P: 40 IA: 185 QRS: 51 QRSD: 99 T: 58 QT: 427 QTc: 431 Interpretive Statements SINUS RHYTHM No previous ECG available for comparison Electronically Signed On 10-24-2024 11:07:14 CDT by Clarke Fuentes D.O
--- NOTE | 2024-10-24 07:18 | P.HP_ITS ---
H&P: HPI History of Present Illness Date/Time: 10/24/24 07:18 Chief Complaint: nasal blocakge Narrative: nasal congestion in spite of adequate medical treatment Review of Systems Review of Systems: All systems reviewed & are unremarkable except as noted in HPI and below Constitutional: Constitutional: Reports as per HPI ENT: Reports as per HPI [facility] Past Medical History Medical History Snoring Sleep-disordered breathing Tonsil stone Chronic tonsillitis Sinus headache Hypertrophy of nasal turbinates Deviated nasal septum Pelvic floor dysfunction in female Presence of neurostimulator Pyelonephritis Anxiety Urinary retention Bronchitis Sinusitis Seasonal allergies Surgical History Surgical History S/P wisdom tooth extraction H/O tubal ligation H/O: hysterectomy Family History Family History Mother Family history unknown Social History Social History Smoking packs per day: 0.5 Smoking cigarettes per day: 10.0 Years smoked: 25 Smoking pack-years: 12.50 Smoking status: Current every day smoker Tobacco type: cigarettes and e-cigarettes/vaping Smoking end date: 01/15/22 Additional smoking assessment comments: now vapes Alcohol intake: never Substance use: never Substance use type: does not use Living arrangements: with family Gender identity (if verbalized by the patient): Female Spiritual care concerns: No Meds Home Medications and Allergies Home Medications ?Medication ?Instructions ?Recorded ?Confirmed ?Type montelukast 10 mg tablet 10 mg PO DAILY 03/06/19 10/15/24 History (Singulair) atorvastatin 10 mg tablet 10 mg PO DAILY 01/16/23 10/15/24 History lamotrigine 25 mg tablet 25 mg PO BID 01/16/23 10/15/24 History trazodone 50 mg tablet 50 mg PO HS 01/16/23 10/15/24 History bupropion HCl 150 mg 24 hr tablet, 150 mg PO DAILY 01/20/24 10/15/24 History extended release escitalopram oxalate 5 mg tablet 5 mg PO DAILY 01/20/24 10/15/24 History estradiol 2 mg tablet 2 mg PO HS 04/05/24 10/15/24 History fluticasone propionate 50 2 spray intranasal DAILY 04/05/24 10/15/24 History mcg/actuation nasal spray,suspension albuterol sulfate 90 mcg/actuation 1 puff inhalation Q4H PRN 07/14/24 10/15/24 History aerosol inhaler (Ventolin HFA) shortness of breath or wheezing cetirizine 10 mg tablet (24Hour 10 mg PO DAILY allergy symptoms 09/15/24 10/15/24 History Allergy) cholecalciferol (vitamin D3) 50 50 mcg PO DAILY 09/15/24 10/15/24 History mcg (2,000 unit) capsule amoxicillin 875 mg-potassium 1 tablet PO Q12H #20 tabs 10/12/24 10/15/24 Rx clavulanate 125 mg tablet methylprednisolone 4 mg tablets in See Rx Instructions PO .COMPLEX 10/12/24 10/15/24 Rx a dose pack (Medrol (Dick)) #21 ea Allergies Allergy/AdvReac Type Severity Reaction Status Date / Time latex Allergy Unknown RASH Verified 10/15/24 14:03 Exam Const: General: cooperative, healthy appearing, comfortable, no acute distress, well developed, alert, awake and Physically active Orientation/consciousness: oriented to person, oriented to place, oriented to time and patient oriented x3 HENMT: Head: normocephalic and atraumatic Ears: external ears normal and EAC's normal Face/Nose/Sinus: Normal external nose present and Normal nares present Mouth: Yes Normal oral and palatal mucosa present, Yes lip normal and Yes tongue normal Other: deviated nasal septum Eyes: General: appearance normal, both eyes and all related structures Neck: Neck: normal visual inspection, full ROM and trachea midline Resp: Effort & Inspection: normal respiratory effort and able to speak in complete sentences Cardio: Rate: regular rate Neuro: General: oriented to person, oriented to place, oriented to time and patient oriented x3 Assessment and Plan Assessment and plan (1) Deviated nasal septum: Code(s): J34.2 - Deviated nasal septum Status: Acute (2) Hypertrophy of nasal turbinates: Code(s): J34.3 - Hypertrophy of nasal turbinates Status: Acute Plan 39-year-old female with right-sided deviated nasal septum, hypertrophy of nasal turbinates, chronic recurrent sinus infection, and chronic tonsillitis.. will plan for septoplasty+bilateral inferior turbinate reduction
--- NOTE | 2024-10-24 07:20 | WPDHPUPDATE1 ---
History and Physical Update Update Date/Time: 10/24/24 07:20 History and Physical has been reviewed, including an updated exam of the patient. There are NO changes in the patient's condition. Risks, benefits, and alternatives have been discussed and questions answered. Patient agrees to proceed with procedure. 39-year-old female with right-sided deviated nasal septum, hypertrophy of nasal turbinates, chronic recurrent sinus infection, and chronic tonsillitis.. will plan for septoplasty+bilateral inferior turbinate reduction
[2024-10-24] MEDS: ACETAMINOPHEN 500 MG TABLET 1000 MG PO (08:25)
--- NOTE | 2024-10-24 08:45 | P.PNAN_ITS ---
Anes - Initial Pre Proc Eval Procedure: Operation Date: 10/24/24 09:30 Proposed Procedures p Bilateral Inferior Turbinate Reduction with Turbinoplasty - Alida Luna MD s Septoplasty - Alida Luna MD Date/Time: 10/24/24 08:45 Surgeon: Alida Luna MD Pre Op Diagnosis: Sleep apnea,dev nasal septum Patient Data Age: 39 Gender: F Height: 1.6 m Weight: 100.8 kg Last Vital Signs Temp 98.4 F 10/24/24 07:48 Pulse 72 10/24/24 07:48 Resp 14 10/24/24 07:48 BP 104/52 L 10/24/24 07:48 Pulse Ox 98 10/24/24 07:48 O2 Del Method Room Air 10/24/24 07:48 Allergies Allergy/AdvReac Type Severity Reaction Status Date / Time latex Allergy Unknown RASH Verified 10/24/24 08:36 Home Medications ?Medication ?Instructions ?Recorded ?Confirmed ?Type montelukast 10 mg tablet 10 mg PO DAILY 03/06/19 10/24/24 History (Singulair) atorvastatin 10 mg tablet 10 mg PO DAILY 01/16/23 10/24/24 History lamotrigine 25 mg tablet 25 mg PO BID 01/16/23 10/24/24 History trazodone 50 mg tablet 50 mg PO HS 01/16/23 10/24/24 History bupropion HCl 150 mg 24 hr tablet, 150 mg PO DAILY 01/20/24 10/24/24 History extended release escitalopram oxalate 5 mg tablet 5 mg PO DAILY 01/20/24 10/24/24 History estradiol 2 mg tablet 2 mg PO HS 04/05/24 10/24/24 History fluticasone propionate 50 2 spray intranasal DAILY 04/05/24 10/24/24 History mcg/actuation nasal spray,suspension albuterol sulfate 90 mcg/actuation 1 puff inhalation Q4H PRN 07/14/24 10/15/24 History aerosol inhaler (Ventolin HFA) shortness of breath or wheezing cetirizine 10 mg tablet (24Hour 10 mg PO DAILY allergy symptoms 09/15/24 10/24/24 History Allergy) cholecalciferol (vitamin D3) 50 50 mcg PO DAILY 09/15/24 10/24/24 History mcg (2,000 unit) capsule amoxicillin 875 mg-potassium 1 tablet PO Q12H #20 tabs 10/12/24 10/24/24 Rx clavulanate 125 mg tablet methylprednisolone 4 mg tablets in See Rx Instructions PO .COMPLEX 10/12/24 10/15/24 Rx a dose pack (Medrol (Dick)) #21 ea Patient hx anesthesia problems: post op nausea/vomiting Family hx anesthesia problems: none Results Review: All pre-operative results and documents have been reviewed as part of the pre- operative evaluation. [facility] Past Medical History Medical History Snoring Sleep-disordered breathing Tonsil stone Chronic tonsillitis Sinus headache Hypertrophy of nasal turbinates Deviated nasal septum Pelvic floor dysfunction in female Presence of neurostimulator Pyelonephritis Anxiety Urinary retention Bronchitis Sinusitis Seasonal allergies Surgical History Surgical History S/P wisdom tooth extraction H/O tubal ligation H/O: hysterectomy Family History Family History Mother Family history unknown Social History Social History Smoking packs per day: 0.5 Smoking cigarettes per day: 10.0 Years smoked: 25 Smoking pack-years: 12.50 Smoking status: Current every day smoker Tobacco type: cigarettes and e-cigarettes/vaping Smoking end date: 01/15/22 Additional smoking assessment comments: now vapes Alcohol intake: never Substance use: never Substance use type: does not use Living arrangements: with family Gender identity (if verbalized by the patient): Female Spiritual care concerns: No Anes - Eval Final PreProcedure Day of Procedure 10/24/24 08:45 Patient weight: obese Lungs: normal air movement Airway: Mallampati scale class II Neurological: alert and oriented Last oral intake: >/= 8 hours ASA classification: III Emergent: no Anesthetic plan: proceed Anesthesia type and monitoring: general ETT and standard monitoring Results Review: All pre-operative results and documents have been reviewed as part of the pre- operative evaluation. Hyperlipidemia, BMI 39, ex smoker, 1/2 ppd, now vapes daily. Informed Consent: The patient's anesthetic plan and its attendant risks and benefits were discussed with the patient/family/POA. Questions were solicited and answers provided to the satisfaction of the patient/family/POA.
[2024-10-24] MEDS: LACTATED RINGERS 1,000 ML 30 ML IV CONT ×2 (08:46→11:45)
[2024-10-24] MEDS: SCOPOLAMINE 1 MG PATCH 1 PATCH TRANSDERM (08:47)
[2024-10-24] MEDS: TRANEXAMIC ACID 1,000MG/ISO100 1,000 MG/100 ML BAG 200 MG IVPB (09:12)
[2024-10-24] MEDS: ceFAZolin 2 GM in SODIUM CHLORIDE 0.9% IV 50 ML 100 ML IVPB (09:12)
[2024-10-24] MEDS: LIDO 1%/EPINEPHRINE 1:100,000 20 ML VIAL INFILTRATE (09:22)
--- NOTE | 2024-10-24 11:40 | P.OP_ITS ---
Procedure Note - Detailed Date of Procedure 10/24/24 Pre-op Diagnosis Sleep apnea,dev nasal septum Post-op Diagnosis Same Procedure Performed ? Endoscopic septoplasty ? Bilateral outfracture of inferior turbinates ? Bilateral inferior turbinate reduction (intramural (submucosal) ablation of the inferior turbinate. Surgeon Alida Luna MD Anesthesia General Description of Procedure DESCRIPTION OF PROCEDURE: The patient was seen in the preoperative area, informed consent was checked and confirmed. The patient was taken to the operating room, sedated and placed under general anesthesia with an endotracheal tube . Eyes were taped and were prepped and draped in the usual sterile fashion. The nose was examined, and the left anterior septum was injected with 1% lidocaine with 1:100,000 epinephrine. Greg incision was made and a mu coperichondrial flap was elevated to expose the quadrangular cartilage and bony septum. Incision was then made anteriorly on the quadrangular cartilage to elevate the contralateral mucoperichondrial flap. Inferior lower strip of quadrangular cartilage was excised with blade 15 . We resected the deviated bony septum with a Chau-Capone and a pituitary forceps. After adequate resection of the posterior-inferior bony septum, the mucoperichondrial Flap was laid back in anatomic position. 04 vircryl was used to suture back the incision Cummins splints were placed and sutured to the nasal septum using 04 vicryl We proceeded with submucosal inferior turbinate reduction, starting on the right side, a stab incision was made anterior mucosa of inferior turbinate. Submucosal pocket was created along the length of the inferior turbinate and the microdebrider blade 2mm thick was introduced anteriorly and into the whole submucosal pocket. Microdebrider was then used to remove the hypertrophied bony parts of anterior turbinate head and soft tissue with the outer layer intact. The residual inferior turbinate was then out fractured using Boies elevator. We proceeded to the left side. A stab incision was made on the anterior mucosa of inferior turbinate. Submucosal pocket was created along the length of the inferior turbinate and the microdebrider blade 2 mm thick was introduced anteriorly and into the whole submucosal pocket. Microdebrider was then used to remove the hypertrophied bony parts of anterior turbinate head and soft tissue with the outer layer intact. The residual inferior turbinate was then out fractured using Boies elevator. At this point patient was handed over to the anesthesia for awakening Estimated Blood Loss 10 (ml) Packing Yes (4 cm Merocel ) Complications No immediate complications Condition Stable Disposition PACU [facility] Billing Surgery - Charge Forward: Surgery Billing
[2024-10-24] MEDS: fentaNYL CITRATE INJ (*CRX) 100 MCG/2 ML VIAL 25 MCG IV PUSH ×4 (11:59→12:29)
[2024-10-24] MEDS: oxyCODONE HCL (*CRX) 5 MG TAB IR PO (13:04)
== END 2024-10-24 13:38 | disposition home or self-care (01) ==
PROVIDERS: PCP Nurse Practitioner Family; Visit Provider Otolaryngology Otolaryngology/Facial Plastic Surgery
PROC: (CPT 30520; principal; 2024-10-24 09:30)
PROC: (CPT 30520; 2024-10-24 09:30)
DX: J34.2 Deviated nasal septum (principal); G47.30 Sleep apnea, unspecified; J34.3 Hypertrophy of nasal turbinates; F17.290 Nicotine dependence, other tobacco product, uncomplicated; E66.9 Obesity, unspecified; Z68.39 Body mass index [BMI] 39.0-39.9, adult
CPT/HCPCS: 30520; 30140; 93005; J0690; A9270; J2004; J2250; J3010; J7050; J7120

== ENCOUNTER 2024-12-26 17:53 | Emergency (ER) | payer OTHER, SELFPAY ==
[2024-12-26 17:55] VITALS: BP 133/77; PULSE 75; RESP 16; TEMP 36.4; O2SAT 98
--- OUTSIDE RECORDS SUMMARY | 2024-12-26 17:57 | XMS_ITS | Clinical Summary ---
Author Organization [facility] Address [address] [place] [address] Care Team Providers Care Automation Machine Operator Name Role Phone Judith Walton NP Primary Care Provider [phone] Khushbu Phan Unavailable [phone] Allergies Active Allergy Reactions Criticality Noted Date [...] 36.4 C (97.5 F) 06/19/2023 8:25 AM OUTPATIENT CODER Respiratory Rate 16 06/19/2023 7:35 AM OUTPATIENT CODER Oxygen Saturation 97% 06/19/2023 8:25 AM OUTPATIENT CODER Inhaled Oxygen Concentration - - Weight 99.8 [...] Screening 2002 Regular Well Visit/Exam 18-64 2002 HPV Vaccines (1 - 3-dose SCDM series) 2011 Influenza Vaccine (#1) 2024 8, 01/09/2017, 01/06/2017, Additional history exists Pneumococcal vaccine <65 Aged Out No longer eligible based on patient's age to complete this topic Medical Devices Implanted Type Area Operational Communication Chief Device Identifier Shelf Expiration Date Model / Serial / Lot Medtronic Inc Kit Lead Neurostimulator Percutaneous 4.32mm Spacing Interstim Surescan 28cm [id number] - [id number] Implanted:Qty: 1 on 06/18/2023 by Umesh Truong MD at [facility] Neurostimulator N/A: Buttocks Medtronic Inc 02/05/2025 [id number] / / [id number] Description:Lead Neurostimul ator Percutaneous Medtronic Inc Generator Neurostimulator Bowel Bladder Recharge Free Interstim X 90773 - [id number] Implanted:Qty: 1 on 06/18/2023 by Umesh Truong MD at [facility] Neurostimulator N/A: Buttocks Medtronic Inc [id number] / / Description:GENERATOR NEUROS TIMULATOR BOWEL BLADDER RECHARGE Medtronic Inc Envelope Absrb 2.7x2.5in Antibacterial Tyrx Medium Strl [id number] - [id number] Implanted:Qty: 1 on 06/18/2023 by Umesh Truong MD at [facility] Other - see comments N/A: Buttocks Medtronic Inc 11/12/2023 [id number] / / Description:Neuro absorbable antibacterial envelop-medium Arthrex Inc System Biceps [place] Slotted Drill Guide 1.9mm Drill Fibertak Ar-3670 - [id number] Implanted:Qty: 1 on 03/27/2023 by Jayson Grijalva MD at [facility] Left: Shoulder Ar[employer]rex Inc 09/14/2027 AR-3670 / / [id number] Arthrex Inc Arthrex Fibertak Tape 3 Load Rotator Cuff [place] Suture Sterile Latex Free Ar-3633 - [id number] Implanted:Qty: 1 on 03/27/2023 by Jayson Grijalva MD at [facility] Left: Shoulder Ar[employer]rex Inc 05/16/2027 AR-3633 / / [id number] Ar[employer]rex Inc Swivelock C 4.75mm 19.1mm Closed Eyelet Vent [place] Suture Ar-2324bcc - [id number] Implanted:Qty: 1 on 03/27/2023 by Jayson Grijalva MD at [facility] Left: Shoulder Ar[employer] Inc 01/13/2027 AR-2324 [facility] / / [id number] Insurance [facility] CHOICE PLUS [facility] Member Subscriber Plan / Payer (Ef fective 2020-Present) Name:Ambar Ruiz Relation to Subscriber:Self Name:JosephPaulino granadosAmbar L Payer ID:[id number] (NAIC) Group ID:Not on file Type:MEDICAID RISK OTHER Address: ATTN: CLAIMS DEPT [address] [facility] CHOICE PLUS Advance Directives For more information, please contact: [phone] * Full Code (Latest Code Status on File) Date Activated Date Inactivated Comments 06/18/2023 12:21 PM 06/19/2023 3:28 PM Care Teams Automation Machine Operator Relationship Specialty Start Date End Date Walton, Judith Salgado NP [address] [place] [address] PCP - General 05/26/20 Khushbu Phan PA [address] [facility] [address] [facility] [address], [place] [address] Physician Therapy Director Orthopedic Surgery 03/27/23
--- NOTE | 2024-12-26 18:09 | ED.URI ---
HPI - URI/Sore Throat General Chief Complaint: Upper Respiratory Infection Stated Complaint: chest heavy/congestion Time Seen by Provider: 12/26/24 18:09 History of Present Illness HPI Narrative: 39-year-old female presented for complaint of Sore throat, nasal congestion and drainage and cough for over 1 week. Denies shortness of breath, wheezing nausea, vomiting diarrhea, fevers or chills. Taking Mucinex without improvement. Patient vapes. Related Data Home Medications ?Medication ?Instructions ?Recorded ?Confirmed ?Last Taken ?Type montelukast 10 mg tablet 10 mg PO DAILY 03/06/19 11/03/24 10/23/24 History (Singulair) atorvastatin 10 mg tablet 10 mg PO DAILY 01/16/23 11/03/24 10/23/24 History lamotrigine 25 mg tablet 25 mg PO BID 01/16/23 11/03/24 10/23/24 History trazodone 50 mg tablet 50 mg PO HS 01/16/23 11/03/24 10/23/24 History bupropion HCl 150 mg 24 hr tablet, 150 mg PO DAILY 01/20/24 11/03/24 10/24/24 History extended release escitalopram oxalate 5 mg tablet 5 mg PO DAILY 01/20/24 11/03/24 10/23/24 History estradiol 2 mg tablet 2 mg PO HS 04/05/24 11/03/24 10/23/24 History fluticasone propionate 50 2 spray intranasal DAILY 04/05/24 11/03/24 10/23/24 History mcg/actuation nasal spray,suspension albuterol sulfate 90 mcg/actuation 1 puff inhalation Q4H PRN 07/14/24 11/03/24 Unknown History aerosol inhaler (Ventolin HFA) shortness of breath or wheezing cetirizine 10 mg tablet (24Hour 10 mg PO DAILY allergy symptoms 09/15/24 11/03/24 10/23/24 History Allergy) cholecalciferol (vitamin D3) 50 50 mcg PO DAILY 09/15/24 11/03/24 10/21/24 History mcg (2,000 unit) capsule Allergies Allergy/AdvReac Type Severity Reaction Status Date / Time latex Allergy Unknown RASH Verified 11/03/24 08:17 Review of Systems Review of Systems: CONSTITUTIONAL: Denies body aches, fever, chills, or sweats. EYES: Denies visual changes, redness, or discharge. ENT: reports sore throat rhinorrhea CARDIOVASCULAR: Denies chest pain, palpitations, or edema. RESPIRATORY: reports cough Denies dyspnea. GASTROINTESTINAL: Denies abdominal pain, nausea, vomiting, or diarrhea. SKIN: Denies rash NEUROLOGIC: Denies headache [facility] Past Medical History Medical History Snoring Sleep-disordered breathing Tonsil stone Chronic tonsillitis Sinus headache Hypertrophy of nasal turbinates Deviated nasal septum Pelvic floor dysfunction in female Presence of neurostimulator Pyelonephritis Anxiety Urinary retention Bronchitis Sinusitis Seasonal allergies Surgical History Surgical History S/P wisdom tooth extraction H/O tubal ligation H/O: hysterectomy Family History Family History Mother Family history unknown Social History Social History Smoking packs per day: 0.5 Smoking cigarettes per day: 10.0 Years smoked: 25 Smoking pack-years: 12.50 Smoking status: Current every day smoker Tobacco type: cigarettes and e-cigarettes/vaping Smoking end date: 01/15/22 Additional smoking assessment comments: now vapes Alcohol intake: never Substance use: never Substance use type: does not use Do You Feel Safe in your Home?: Yes Lack of Transportation: No Lack of Food: Never True Current Housing: I Have Housing Concerned About Future Housing: No Difficulty Paying Gas/Electric Bills: No Difficulty Paying for Meds: No Currently Unemployed: No Education: Associate Degree Difficulty w/ Childcare or Family Care: No Living arrangements: with family Gender identity (if verbalized by the patient): Female Spiritual care concerns: No Exam Narrative: GENERAL:well-appearing, no acute distress. EYES: conjunctivae clear ENT: Mucous membranes moist. TM pearly becker with normal light reflex bilaterally; no tragal tenderness. Oropharynx not erythematous without lesions. Tonsils enlarged 1+ and without exudate. No drooling, no hoarseness, no trismus, uvula midline. No tripod positioning, hot potato voice, or soft palate swelling. NECK: Supple. No lymphadenopathy CHEST: Clear to auscultation, breath sounds equal. No respiratory distress, speaks in full sentences. HEART: Regular rate and rhythm. No murmur heard. SKIN: Warm, dry, no rash. NEURO: Alert and oriented x3. Course Course Emergency Course: Patient is aware of diagnosis, understands and agrees to treatment plan. Anticipatory guidance given. Patient agrees to follow-up as directed and is aware of reasons to seek care at the emergency department. Portions of this record may have been created with voice recognition software Level of Care: Express Care Visit Vital Signs Vital signs: Vital Signs Temperature 97.6 F 12/26/24 17:55 Pulse Rate 75 12/26/24 17:55 Respiratory Rate 16 12/26/24 17:55 Blood Pressure 133/77 12/26/24 17:55 Pulse Oximetry 98 12/26/24 17:55 Oxygen Delivery Room Air 12/26/24 17:55 Temperature 97.6 F 12/26/24 17:55 Pulse Rate 75 12/26/24 17:55 Respiratory Rate 16 12/26/24 17:55 Blood Pressure 133/77 12/26/24 17:55 Pulse Oximetry 98 12/26/24 17:55 Oxygen Delivery Room Air 12/26/24 17:55 MDM - URI/Sore Throat MDM Narrative Medical decision making narrative: Negative flu, COVID, strep result reviewed with pt. symptoms present for over 1 week, will send antibiotic and steroid at this time. Advise supportive treatments. Patient is appropriate for outpatient treatment and follow-up. Differential Diagnosis Differential diagnosis: Likely upper respiratory infection, viral infection and pharyngitis Discharge Plan Discharge Clinical Impression: Bronchitis Patient Disposition: Home Condition: Stable Instructions: Antibiotic Form, Acute Bronchitis (ED) Additional Instructions: Take medication as directed Recommendations: Flonase spray and Zyrtec (or Claritin/Ashanti) over the counter Cough syrup may cause drowsiness; avoid driving or take it at night time. Tylenol every 8 hours as needed for pain Symptomatic treatment includes: rest, fluids, and increase humidity of the air at home. Follow up with your primary care provider as needed in 1 week Go to the ER for worsening symptoms or concerns Patient Language: Tamazight Prescriptions: New prednisone 20 mg tablet 40 mg PO DAILY 5 Days Qty: 10 0RF doxycycline hyclate 100 mg tablet 100 mg PO BID 7 Days Qty: 14 0RF No Action montelukast [Singulair] 10 mg Tablet 10 mg PO DAILY trazodone 50 mg tablet 50 mg PO HS atorvastatin 10 mg tablet 10 mg PO DAILY lamotrigine 25 mg tablet 25 mg PO BID Patient Comments: Says only takes at HS bupropion HCl 150 mg tablet extended release 24 hr 150 mg PO DAILY escitalopram oxalate 5 mg tablet 5 mg PO DAILY Patient Comments: Says takes at HS estradiol 2 mg tablet 2 mg PO HS fluticasone propionate 50 mcg/actuation spray,suspension 2 spray INTRANASAL DAILY cetirizine [24Hour Allergy] 10 mg tablet 10 mg PO DAILY cholecalciferol (vitamin D3) 50 mcg (2,000 unit) capsule 50 mcg PO DAILY albuterol sulfate [Ventolin HFA] 90 mcg/actuation HFA aerosol inhaler 1 puff inhalation Q4H PRN (Reason: shortness of breath or wheezing) acetaminophen-codeine 300-15 mg tablet 1 tablet PO Q8H PRN (Reason: pain (scale score 7-10)) Qty: 15 0RF Rx Instructions: to be use for sever pain only for moderate to mild pain use regular Tylenol Follow-up/Referrals: Walton,Judith Cee APN [Primary Care Provider, Unknown]
[2024-12-26 18:19] LABS: EDCOVIDSCREEN Negative (Negative); EDINFLUASCREEN Negative (Negative); EDINFLUBSCREEN Negative (Negative); EDSTREPNEGPOS1 Negative (Negative)
== END 2024-12-26 18:29 | disposition home or self-care (01) ==
PROVIDERS: Emergency Provider Nurse Practitioner Family; PCP Nurse Practitioner Family
DX: J40 Bronchitis, not specified as acute or chronic (principal); F17.290 Nicotine dependence, other tobacco product, uncomplicated; Z96.82 Presence of neurostimulator; Z20.822 Contact with and (suspected) exposure to COVID-19
CPT/HCPCS: 87081; 87426; 87804; 87880; 99213; G0463

== ENCOUNTER 2025-01-31 10:28 | Emergency (ER) | payer OTHER, SELFPAY ==
--- NOTE | ~2025-01-31 | CT_ITS ---
CT abdomen pelvis w con Clinical History: Diffuse abdominal pain, nausea . Comparison: None Technique: Axial images lung bases to symphysis pubis IV contrast information not listed in PACS Coronal, sagittal reformats CT images acquired with automatic exposure control for dose reduction DLP: 1114 mGy-cm Findings: Lung bases: Clear. Visualized heart and pericardium: Unremarkable. Liver: Enlarged. Steatosis. Gallbladder: Unremarkable. Spleen: Unremarkable. Pancreas: Unremarkable. Adrenal glands: Unremarkable. Kidneys: Right kidney- No hydronephrosis. No renal stones. Left kidney- No hydronephrosis. No renal stones. Distal esophagus/stomach: Unremarkable. Small bowel loops: Normal caliber and wall thickness. Fluid-filled loops, a few air-fluid levels Colon: Normal caliber and wall thickness. Normal RLQ appendix. Nodes: No enlarged nodes. Peritoneum: No ascites. No free air. Urinary bladder: Unremarkable. Uterus: Removed. Adnexa: No masses. Bones: No acute bony abnormality. Soft tissues: Unremarkable. Aorta: No aneurysm or dissection. IVC: Unremarkable. Main portal vein/SMV/splenic vein: Patent. IMPRESSION: 1. Suspect mild enteritis and/or impending diarrhea. 2. Otherwise no acute abnormality. Reviewed, dictated and finalized at location R.
[2025-01-31 10:33] VITALS: BP 129/90; PULSE 83; RESP 18; TEMP 36.4; O2SAT 100
--- NOTE | 2025-01-31 10:59 | ED.GENADULT ---
HPI - General Adult General Chief complaint: Abdominal Pain Stated complaint: ABD Pain w/ Back Pain Time Seen by Provider: 01/31/25 10:44 History of Present Illness HPI narrative: 39-year-old female present to the emergency department for evaluation for nausea and diarrhea that has been ongoing for past few days, patient reports symptoms started on Sunday. Patient denies recurrent issues with nausea vomiting and diarrhea. Patient does have a prior history of pelvic floor dysfunction does have a prior history of total hysterectomy. Patient did take Zofran for nausea control prior to arrival but states this did not help significantly. Time of initial evaluation patient is well-appearing and in no significant distress. Patient did request medication for pain control. Related Data Home Medications ?Medication ?Instructions ?Recorded ?Confirmed ?Last Taken ?Type montelukast 10 mg tablet 10 mg PO DAILY 03/06/19 01/26/25 10/23/24 History (Singulair) atorvastatin 10 mg tablet 10 mg PO DAILY 01/16/23 01/26/25 10/23/24 History lamotrigine 25 mg tablet 25 mg PO BID 01/16/23 01/26/25 10/23/24 History trazodone 50 mg tablet 50 mg PO HS 01/16/23 01/26/25 10/23/24 History bupropion HCl 150 mg 24 hr tablet, 150 mg PO DAILY 01/20/24 01/26/25 10/24/24 History extended release escitalopram oxalate 5 mg tablet 5 mg PO DAILY 01/20/24 01/26/25 10/23/24 History estradiol 2 mg tablet 2 mg PO HS 04/05/24 01/26/25 10/23/24 History fluticasone propionate 50 2 spray intranasal DAILY 04/05/24 01/26/25 10/23/24 History mcg/actuation nasal spray,suspension albuterol sulfate 90 mcg/actuation 1 puff inhalation Q4H PRN 07/14/24 01/26/25 Unknown History aerosol inhaler (Ventolin HFA) shortness of breath or wheezing cetirizine 10 mg tablet (24Hour 10 mg PO DAILY allergy symptoms 09/15/24 01/26/25 10/23/24 History Allergy) cholecalciferol (vitamin D3) 50 50 mcg PO DAILY 09/15/24 01/26/25 10/21/24 History mcg (2,000 unit) capsule Allergies Allergy/AdvReac Type Severity Reaction Status Date / Time latex Allergy Unknown RASH Verified 01/31/25 10:36 Review of Systems Review of Systems: All systems reviewed & are unremarkable except as noted in HPI and below PMFSH Past Medical History Medical History (Updated 01/31/25 @ 12:59 by Richy Berg MD) PTSD (post-traumatic stress disorder) Bipolar disorder Anemia Hyperlipidemia Asthma Allergic rhinitis Snoring Sleep-disordered breathing Tonsil stone Chronic tonsillitis Sinus headache Hypertrophy of nasal turbinates Deviated nasal septum Pelvic floor dysfunction in female Presence of neurostimulator Pyelonephritis Anxiety Urinary retention Bronchitis Sinusitis Seasonal allergies Surgical History Surgical History S/P wisdom tooth extraction H/O tubal ligation H/O: hysterectomy Family History Family History Mother Family history unknown Social History Social History Smoking packs per day: 0.5 Smoking cigarettes per day: 10.0 Years smoked: 26 Smoking pack-years: 13.00 Smoking status: Current every day smoker Tobacco type: e-cigarettes/vaping Smoking end date: 01/15/22 Additional smoking assessment comments: I vape nicotine now. Alcohol intake: never Substance use: never Substance use type: does not use Do You Feel Safe in your Home?: Yes Lack of Transportation: No Lack of Food: Never True Current Housing: I Have Housing Concerned About Future Housing: No Difficulty Paying Gas/Electric Bills: No Difficulty Paying for Meds: No Currently Unemployed: No Education: Associate Degree Difficulty w/ Childcare or Family Care: No Living arrangements: with family Gender identity (if verbalized by the patient): Female Spiritual care concerns: No Exam Narrative: APPEARANCE: Well appearing, no pain, no distress, well-nourished. HEAD: normocephalic, atraumatic. EYES: PERRLA/EOMI, conjunctivae clear. NOSE: Normal no drainage EARS:TMS clear with good light reflex. THROAT: Pharynx clear, no exudate. NECK: Supple. No adenopathy, no masses. RESPIRATORY: Airway patent, respirations nonlabored. Clear to auscultation bilaterally, no rales, rhonchi, wheezing. CARDIOVASCULAR: Regular rate and rhythm without murmurs rubs or gallops. ABDOMINAL: Normal bowel sounds, upper abdominal tenderness to palpation MUSCULOSKELETAL: Moves all extremities. Strength/ROM intact, No edema, No calf tenderness. NEURO: Alert. Cranial nerves II through XII intact. Good gait. Good coordination SKIN: Warm, dry. Normal Color Course Vital Signs Vital signs: Vital Signs Temperature 97.6 F 01/31/25 10:33 Pulse Rate 83 01/31/25 10:33 Respiratory Rate 18 01/31/25 10:33 Blood Pressure 129/90 01/31/25 10:33 Pulse Oximetry 100 01/31/25 10:33 Oxygen Delivery Room Air 01/31/25 10:33 Temperature 97.6 F 01/31/25 10:33 Pulse Rate 83 01/31/25 10:33 Respiratory Rate 18 01/31/25 10:33 Blood Pressure 129/90 01/31/25 10:33 Pulse Oximetry 100 01/31/25 10:33 Oxygen Delivery Room Air 01/31/25 10:33 Medical Decision Making [facility] Narrative Medical decision making narrative: 39-year-old female presents to the emergency department for evaluation for nausea without vomiting plus diarrhea. Patient is afebrile but does have a leukocytosis 11.2 and hemoglobin of 12.8. Patient has no significant abnormalities on her CMP was normal T bili AST ALT alk-phos and lipase. UA was negative for infection. CT scan did show evidence of colitis and impending diarrhea. Patient was provided nausea medication for home, she was advised to follow a clear liquid diet. Patient was provided Augmentin for colitis. Patient was updated on the results of the workup. Patient was comfortable plan for discharge and close follow-up. Patient was provided follow-up with GI as well. Differential Diagnosis Differential Diagnosis: Colitis, diverticulitis, small-bowel obstruction, cholecystitis, appendicitis, pancreatitis Vital Signs Vital Signs: Vital Signs Temperature 97.6 F 01/31/25 10:33 Pulse Rate 83 01/31/25 10:33 Respiratory Rate 18 01/31/25 10:33 Blood Pressure 129/90 01/31/25 10:33 Pulse Oximetry 100 01/31/25 10:33 Oxygen Delivery Room Air 01/31/25 10:33 Temperature 97.6 F 01/31/25 10:33 Pulse Rate 83 01/31/25 10:33 Respiratory Rate 18 01/31/25 10:33 Blood Pressure 129/90 01/31/25 10:33 Pulse Oximetry 100 01/31/25 10:33 Oxygen Delivery Room Air 01/31/25 10:33 Lab Data Lab results reviewed: Yes I reviewed the patient's lab results. 01/31/25 11:01 01/31/25 11:01 Labs: Lab Results 01/31/25 01/31/25 Range/Units 11:01 12:24 WBC 11.2 H (4.5-10.0) K/mm3 RBC 4.33 (4.2-5.4) M/mm3 Hgb 12.8 (12.0-15.0) g/dL Hct 38.7 (37.0-47.0) % MCV 89.4 (80-100) fl MCH 29.6 (26-34) pg MCHC 33.1 (32-36) g/dl RDW 12.1 (11.5-14.5) % Plt Count 303 (150-375) k/mm3 MPV 9.7 (7.4-10.4) fl Immature Gran % (Auto) 0.5 (0-0.5) % Neut % (Auto) 54.2 (45.5-73.1) % Lymph % (Auto) 26.7 (18.3-44.2) % [place] % (Auto) 5.1 (2.6-8.5) % Eos % (Auto) 13.1 H (0-4.4) % Baso % (Auto) 0.4 (0.2-1.2) % Lymph # (Auto) 2.98 (0.9-3.2) K/mm3 [place] # (Auto) 0.6 (0.1-0.6) K/mm3 Eos # (Auto) 1.5 H (0-0.3) K/mm3 Baso # (Auto) 0.1 (0.0-0.1) K/mm3 Abs Immat Gran (auto) 0.06 H (0.00-0.031) K/mm3 Absolute Neuts (auto) 6.0 (1.3-6.7) K/mm3 Absolute Nucleated RBC 0.000 (0.0-0.012) K/mm3 Nucleated RBC % 0.0 (0.0-0.2) % Sodium 135 L (137-145) mmol/L Potassium 4.0 (3.4-5.0) mmol/L Chloride 104 (98-107) mmol/L Carbon Dioxide 23 (22-30) mmol/L Anion Gap 8 (4-12) mmol/L BUN 10 (7-17) mg/dL Creatinine 0.88 (0.7-1.0) mg/dL Estim Creat Clear Calc 84 ml/min Estimated GFR > 60 (59 - ) Glucose 92 (65-110) mg/dL Calcium 8.7 (8.4-10.2) mg/dL Total Bilirubin 0.2 (0.2-1.3) mg/dL AST 29 (14-36) U/L ALT 26 (6-35) U/L Alkaline Phosphatase 85 (38-126) U/L Total Protein 7.2 (6.3-8.2) g/dL Albumin 4.1 (3.5-5.1) g/dL Lipase 50 (23-300) U/L Urine Color Yellow (Yellow) Urine Appearance Clear (Clear) Urine pH 6.0 (5.0-9.0) Ur Specific [place] 1.011 (1.001-1.035) Urine Protein Negative (Negative) mg/dL Urine Glucose (UA) Negative (Negative) mg/dL Urine Ketones Negative (Negative) mg/dL Ur Blood (Man) Negative (Negative) Urine Nitrate Negative (Negative) Urine Bilirubin Negative (Negative) Urine Urobilinogen 0.2 (<2.0) mg/dL Leukocyte Esterase Rfl Negative (Negative) RENETTA/UL Imaging Data Radiologist's impression: Impressions Abdomen/Pelvis CT 01/31/25 12:26 IMPRESSION: 1. Suspect mild enteritis and/or impending diarrhea. 2. Otherwise no acute abnormality. Discharge Plan Discharge Clinical Impression: Colitis Patient Disposition: Home Condition: Stable Instructions: Antibiotic Form, Clear Liquid Diet (ED), Colitis (ED) Additional Instructions: Antibiotic as directed until completed. Zofran as needed for nausea control. Follow a clear liquid diet for the next 1-3 days. Have close follow-up with your primary care physician. Have close follow-up with GI. Patient Language: Yi Prescriptions: New ondansetron 4 mg tablet,disintegrating 4 mg PO Q8H PRN (Reason: nausea and vomiting) Qty: 14 0RF amoxicillin-pot clavulanate 875-125 mg tablet 1 tablet PO Q12H 7 Days Qty: 14 0RF fluconazole 150 mg tablet 150 mg PO ONCE Qty: 1 0RF Rx Instructions: as a single dose after you complete your antibiotics No Action montelukast [Singulair] 10 mg Tablet 10 mg PO DAILY Patient Comments: ran out 1 month ago trazodone 50 mg tablet 50 mg PO HS atorvastatin 10 mg tablet 10 mg PO DAILY lamotrigine 25 mg tablet 25 mg PO BID Patient Comments: Says only takes at HS bupropion HCl 150 mg tablet extended release 24 hr 150 mg PO DAILY escitalopram oxalate 5 mg tablet 5 mg PO DAILY Patient Comments: Says takes at HS estradiol 2 mg tablet 2 mg PO HS fluticasone propionate 50 mcg/actuation spray,suspension 2 spray INTRANASAL DAILY cetirizine [24Hour Allergy] 10 mg tablet 10 mg PO DAILY cholecalciferol (vitamin D3) 50 mcg (2,000 unit) capsule 50 mcg PO DAILY albuterol sulfate [Ventolin HFA] 90 mcg/actuation HFA aerosol inhaler 1 puff inhalation Q4H PRN (Reason: shortness of breath or wheezing) azelastine-fluticasone 137-50 mcg/spray spray,non-aerosol 1 spray intranasal BID 30 Days Qty: 23 2RF Rx Instructions: administer into each nostril Follow-up/Referrals: Walton,Judith Cee APN [Primary Care Provider, Unknown] Chris Villatoro MD [Physician, Gastroenterology]
[2025-01-31] MEDS: LACTATED RINGERS 1,000 ML 999 ML IV CONT (11:05)
[2025-01-31] MEDS: HYDROmorphone HCL INJ (*CRX) 1 MG/ML SYR 0.5 MG IV PUSH (11:05)
[2025-01-31] MEDS: ONDANSETRON INJ 4 MG/2 ML VIAL IV PUSH (11:05)
[2025-01-31 11:06] LABS: Hematocrit 38.7 % (37.0-47.0); Hemoglobin 12.8 g/dL (12.0-15.0); Immature Granulocyte Percent A 0.5 % (0-0.5); Lymphocytes Absolute Auto 2.98 K/mm3 (0.9-3.2); Mean Corpuscular HGB Conc 33.1 g/dl (32-36); Mean Corpuscular Hemoglobin 29.6 pg (26-34); Mean Corpuscular Volume 89.4 fl (80-100); Nucleated Red Blood Cells Absolute Auto 0.000 K/mm3 (0.0-0.012); Nucleated Red Blood Cells Perc 0.0 % (0.0-0.2); Platelet Count Result 303 k/mm3 (150-375); Red Blood Count 4.33 M/mm3 (4.2-5.4); White Blood Count 11.2 K/mm3 (4.5-10.0)
[2025-01-31 11:30] LABS: Alanine Aminotransferase 26 U/L (6-35); Albumin Level 4.1 g/dL (3.5-5.1); Alkaline Phosphatase 85 U/L (38-126); Anion Gap 8 mmol/L (4-12); Aspartate Amino Transferase 29 U/L (14-36); Bilirubin,Total 0.2 mg/dL (0.2-1.3); Blood Urea Nitrogen 10 mg/dL (7-17); Calcium 8.7 mg/dL (8.4-10.2); Carbon Dioxide 23 mmol/L (22-30); Chloride 104 mmol/L (98-107); Estimated CRCL calculation 84 ml/min; Estimated Glomerular Filt Rate > 60; Glucose 92 mg/dL (65-110); Lipase 50 U/L (23-300); Potassium 4.0 mmol/L (3.4-5.0); Sodium 135 mmol/L (137-145); Total Protein 7.2 g/dL (6.3-8.2)
[2025-01-31 12:35] LABS: Add Urine Microscopic? NO; Appearance Urine Clear (Clear); Glucose Urine UA Negative (Negative); Leukocyte Esterase Ur Negative LEU/UL (Negative); Nitrate Urine Negative (Negative); Specific Grav Ur 1.011 (1.001-1.035)
== END 2025-01-31 13:18 | disposition home or self-care (01) ==
PROVIDERS: Emergency Provider Emergency Medicine; PCP Nurse Practitioner Family
DX: K52.9 Noninfective gastroenteritis and colitis, unspecified (principal); E78.5 Hyperlipidemia, unspecified; J45.909 Unspecified asthma, uncomplicated; F41.9 Anxiety disorder, unspecified; F31.9 Bipolar disorder, unspecified; F43.10 Post-traumatic stress disorder, unspecified; Z87.891 Personal history of nicotine dependence; Z86.2 Personal history of diseases of the blood and blood-forming organs and certain disorders involving the immune mechanism; Z90.710 Acquired absence of both cervix and uterus; Z79.899 Other long term (current) drug therapy; Z79.890 Hormone replacement therapy
CPT/HCPCS: 36415; 74177; 80053; 81003; 83690; 85025; 96361; 96374; 96375; 99284; A9270; J1171; J2405; J7120; Q9967

== ENCOUNTER 2025-02-27 01:10 | Day surgery (SDC) | payer OTHER, SELFPAY ==
--- NOTE | 2025-01-26 16:20 | SUR.PREOP ---
Addendum entered by Jered Molina RN 02/18/25 10:57: Patient says no changes since preop interview. Informed patient to arrive at 0815 on 02-27-2025 for surgery at 1015 Original Note: [facility] has started construction of its new state of the art ER which will open Spring 2026. With this, we anticipate parking may be a challenge for some our surgical patients and families. Parking spaces are limited but are available for all Surgical, obstetrics, and ER patients sharing this lot. If you arrive and find you are having a hard time finding a parking space, please note that we understand the challenges, please drive around the hospital and park near Hospital Entrance 1. When you enter this entrance, you can ask a volunteer to direct or take you back to the surgical waiting area to check in. We appreciate everyone?s understanding of these expected challenges while we build for your future. Report to the Outpatient Waiting Room, entrance under the green pavilion located off [address], at time __9am___ on date _01/30/25__. Planned Procedure Time: ___11am___.? Time changes happen often and if your time is changed the preop area will call you the afternoon before. - You and your visitor will be asked to self-screen and do not enter if you have any COVID symptoms. Please call surgeon if you need to reschedule. - A mask is optional within the hospital at this time. Patients may have clear liquids (water, carbonated beverages, clear teas, apple juice) until 3 hours prior to surgery with a maximum of 20 ounces. - No food from midnight until time of surgery and no smoking, or chewing tobacco (or any form of nicotine). No chewing gum, candy or mints. - Infants may have breast milk until 4 hours before surgery, formula 6 hours prior to surgery. Take only the following medications with a SIP of water on the morning of surgery: ___albuterol if needed, bupropion. ___ DO NOT STOP ANY OF YOUR OTHER PRESCRIPTION MEDICATIONS PRIOR TO SURGERY EXCEPT THE FOLLOWING Hold all vitamins and supplements for 3 days per anesthesiologist. Medications to discontinue per physician N/a Date to take last dose___10/13/25 Please no make-up, nail panamanian, hairspray, perfume, deodorant, or body powder the day of surgery.? No jewelry (including any body piercings) or valuables the day of surgery, leave them at home.? Please take a shower or bath the night before, or the morning of, surgery with an antibacterial soap.? Wear comfortable, loose fitting clothing.? - Jewelry must be removed prior to entering the operating room.? Rings and piercings that are not removed may be cut off. - The hospital will not accept responsibility for valuables.? - Please leave all valuables, including medications, at home the day of surgery. If you are going home after surgery, a licensed emergency detail driver must drive you home.? - NO public transportation without another adult if you receive anesthesia. - We recommend that an adult stay with you for 24 hours following discharge. - We also recommend that you do not drive, make important decision, drink alcoholic beverages, or take any drugs that were not prescribed by your health care provider for at least 24 hours after your discharge time. Follow any additional instructions given to you from your surgeon. Telephone instructions given to ___Ambar____and asked if any additional questions and then verbalized understanding. Patient advised to call surgeon office or pre surgery nurse liaison [phone] if any additional questions.
[2025-01-26 16:51] VITALS: BMI 40.2
[2025-02-27] VITALS (9 sets, daily range): BP systolic 100–130; BP diastolic 50–78; PULSE 60–106; RESP 14–20; TEMP 36.2–36.3; O2SAT 95–100
--- NOTE | 2025-02-27 08:49 | PM.IMHP ---
H&P: HPI History of Present Illness Date/Time: 02/27/25 08:49 Chief Complaint: Chronic tonsillitis and snoring Review of Systems Review of Systems: All systems reviewed & are unremarkable except as noted in HPI and below Constitutional: Constitutional: Reports as per HPI ENT: Reports as per HPI Respiratory: Respiratory: Reports as per HPI Gastrointestinal: Gastrointestinal: Reports as per HPI [facility] Past Medical History Medical History (Updated 02/27/25 @ 08:51 by Alida Luna MD) PTSD (post-traumatic stress disorder) Bipolar disorder Anemia Hyperlipidemia Asthma Allergic rhinitis Snoring Sleep-disordered breathing Tonsil stone Chronic tonsillitis Sinus headache Hypertrophy of nasal turbinates Deviated nasal septum Pelvic floor dysfunction in female Presence of neurostimulator Pyelonephritis Anxiety Urinary retention Bronchitis Sinusitis Seasonal allergies Surgical History Surgical History S/P wisdom tooth extraction H/O tubal ligation H/O: hysterectomy Family History Family History Mother Family history unknown Social History Social History Smoking packs per day: 0.5 Smoking cigarettes per day: 10.0 Years smoked: 26 Smoking pack-years: 13.00 Smoking status: Current every day smoker Tobacco type: e-cigarettes/vaping Smoking end date: 01/15/22 Additional smoking assessment comments: I vape nicotine now. Alcohol intake: never Substance use: never Substance use type: does not use Do You Feel Safe in your Home?: Yes Lack of Transportation: No Lack of Food: Never True Current Housing: I Have Housing Concerned About Future Housing: No Difficulty Paying Gas/Electric Bills: No Difficulty Paying for Meds: No Currently Unemployed: No Education: Associate Degree Difficulty w/ Childcare or Family Care: No Living arrangements: with family Gender identity (if verbalized by the patient): Female Spiritual care concerns: No Meds Home Medications and Allergies Home Medications ?Medication ?Instructions ?Recorded ?Confirmed ?Type montelukast 10 mg tablet 10 mg PO DAILY 03/06/19 01/26/25 History (Singulair) atorvastatin 10 mg tablet 10 mg PO DAILY 01/16/23 01/26/25 History lamotrigine 25 mg tablet 25 mg PO BID 01/16/23 01/26/25 History trazodone 50 mg tablet 50 mg PO HS 01/16/23 01/26/25 History bupropion HCl 150 mg 24 hr tablet, 150 mg PO DAILY 01/20/24 01/26/25 History extended release escitalopram oxalate 5 mg tablet 5 mg PO DAILY 01/20/24 01/26/25 History estradiol 2 mg tablet 2 mg PO HS 04/05/24 01/26/25 History fluticasone propionate 50 2 spray intranasal DAILY 04/05/24 01/26/25 History mcg/actuation nasal spray,suspension albuterol sulfate 90 mcg/actuation 1 puff inhalation Q4H PRN 07/14/24 01/26/25 History aerosol inhaler (Ventolin HFA) shortness of breath or wheezing cetirizine 10 mg tablet (24Hour 10 mg PO DAILY allergy symptoms 09/15/24 01/26/25 History Allergy) cholecalciferol (vitamin D3) 50 50 mcg PO DAILY 09/15/24 01/26/25 History mcg (2,000 unit) capsule azelastine 137 mcg-fluticasone 50 1 spray intranasal BID 30 days #23 01/26/25 01/26/25 Rx mcg/spray nasal spray grams fluconazole 150 mg tablet 150 mg PO ONCE #1 tablet 01/31/25 Rx Allergies Allergy/AdvReac Type Severity Reaction Status Date / Time latex Allergy Unknown RASH Verified 02/18/25 10:59 Exam Const: General: cooperative, healthy appearing, comfortable, no acute distress, well developed, alert, awake and Physically active Orientation/consciousness: oriented to person, oriented to place, oriented to time and patient oriented x3 HENMT: Head: normocephalic and atraumatic Ears: external ears normal and EAC's normal Face/Nose/Sinus: Normal external nose present and Normal nares present Mouth: Yes Normal oral and palatal mucosa present, Yes lip normal and Yes tongue normal Other: Enlarged uvula, chronic tonsillitis Eyes: General: appearance normal, both eyes and all related structures Neck: Neck: normal visual inspection, full ROM and trachea midline Resp: Effort & Inspection: normal respiratory effort and able to speak in complete sentences Cardio: Rate: regular rate Neuro: General: oriented to person, oriented to place, oriented to time and patient oriented x3 Assessment and Plan Assessment and plan (1) Chronic tonsillitis: Code(s): J35.01 - Chronic tonsillitis Status: Acute (2) Snoring: Code(s): R06.83 - Snoring Status: Acute (3) Uvular hypertrophy: Code(s): K13.79 - Other lesions of oral mucosa Status: Acute Plan 39-year-old female with chronic tonsillitis and hypertrophy of uvula Procedure to be done: Tonsillectomy+ uvulectomy
--- NOTE | 2025-02-27 08:52 | WPDHPUPDATE1 ---
History and Physical Update Update Date/Time: 02/27/25 08:52 History and Physical has been reviewed, including an updated exam of the patient. There are NO changes in the patient's condition. Risks, benefits, and alternatives have been discussed and questions answered. Patient agrees to proceed with procedure. Procedure to be done: Tonsillectomy plus uvulectomy
[2025-02-27] MEDS: LACTATED RINGERS 1,000 ML 30 ML IV CONT ×2 (09:30→11:18)
[2025-02-27] MEDS: ACETAMINOPHEN 500 MG TABLET 1000 MG PO (09:30)
[2025-02-27] MEDS: SCOPOLAMINE 1 MG PATCH 1 PATCH TRANSDERM (09:30)
--- NOTE | 2025-02-27 09:39 | WPDANESEPPF ---
Anes - Initial Pre Proc Eval Procedure: Operation Date: 02/27/25 10:15 Proposed Procedures p Tonsillectomy - Alida Luna MD s Uvulectomy - Alida Luna MD Date/Time: 02/27/25 09:39 Surgeon: Alida Luna MD Pre Op Diagnosis: other lesions oral mucosa, allergic rhinitis Patient Data Age: 39 Gender: F Height: 1.6 m Weight: 103 kg Allergies Allergy/AdvReac Type Severity Reaction Status Date / Time latex Allergy Unknown RASH Verified 02/18/25 10:59 Home Medications ?Medication ?Instructions ?Recorded ?Confirmed ?Type montelukast 10 mg tablet 10 mg PO DAILY 03/06/19 01/26/25 History (Singulair) atorvastatin 10 mg tablet 10 mg PO DAILY 01/16/23 01/26/25 History lamotrigine 25 mg tablet 25 mg PO BID 01/16/23 01/26/25 History trazodone 50 mg tablet 50 mg PO HS 01/16/23 01/26/25 History bupropion HCl 150 mg 24 hr tablet, 150 mg PO DAILY 01/20/24 01/26/25 History extended release escitalopram oxalate 5 mg tablet 5 mg PO DAILY 01/20/24 01/26/25 History estradiol 2 mg tablet 2 mg PO HS 04/05/24 01/26/25 History fluticasone propionate 50 2 spray intranasal DAILY 04/05/24 01/26/25 History mcg/actuation nasal spray,suspension albuterol sulfate 90 mcg/actuation 1 puff inhalation Q4H PRN 07/14/24 01/26/25 History aerosol inhaler (Ventolin HFA) shortness of breath or wheezing cetirizine 10 mg tablet (24Hour 10 mg PO DAILY allergy symptoms 09/15/24 01/26/25 History Allergy) cholecalciferol (vitamin D3) 50 50 mcg PO DAILY 09/15/24 01/26/25 History mcg (2,000 unit) capsule azelastine 137 mcg-fluticasone 50 1 spray intranasal BID 30 days #23 01/26/25 01/26/25 Rx mcg/spray nasal spray grams fluconazole 150 mg tablet 150 mg PO ONCE #1 tablet 01/31/25 Rx Patient hx anesthesia problems: none Family hx anesthesia problems: none Results Review: All pre-operative results and documents have been reviewed as part of the pre-operative evaluation. [facility] Past Medical History Medical History PTSD (post-traumatic stress disorder) Bipolar disorder Anemia Hyperlipidemia Asthma Allergic rhinitis Snoring Sleep-disordered breathing Tonsil stone Chronic tonsillitis Sinus headache Hypertrophy of nasal turbinates Deviated nasal septum Pelvic floor dysfunction in female Presence of neurostimulator Pyelonephritis Anxiety Urinary retention Bronchitis Sinusitis Seasonal allergies Surgical History Surgical History S/P wisdom tooth extraction H/O tubal ligation H/O: hysterectomy Family History Family History Mother Family history unknown Social History Social History Smoking packs per day: 0.5 Smoking cigarettes per day: 10.0 Years smoked: 26 Smoking pack-years: 13.00 Smoking status: Current every day smoker Tobacco type: e-cigarettes/vaping Smoking end date: 01/15/22 Additional smoking assessment comments: I vape nicotine now. Alcohol intake: never Substance use: never Substance use type: does not use Do You Feel Safe in your Home?: Yes Lack of Transportation: No Lack of Food: Never True Current Housing: I Have Housing Concerned About Future Housing: No Difficulty Paying Gas/Electric Bills: No Difficulty Paying for Meds: No Currently Unemployed: No Education: Associate Degree Difficulty w/ Childcare or Family Care: No Living arrangements: with family Gender identity (if verbalized by the patient): Female Spiritual care concerns: No Anes - Eval Final PreProcedure Day of Procedure 02/27/25 09:39 Patient weight: morbidly obese Heart: regular rate and rhythm Lungs: clear to auscultation Airway: Mallampati scale class II Neurological: alert and oriented Last oral intake: >/= 8 hours ASA classification: III Emergent: no Anesthetic plan: proceed Anesthesia type and monitoring: general ETT and standard monitoring Results Review: All pre-operative results and documents have been reviewed as part of the pre-operative evaluation. Informed Consent: The patient's anesthetic plan and its attendant risks and benefits were discussed with the patient/family/POA. Questions were solicited and answers provided to the satisfaction of the patient/family/POA.
[2025-02-27 09:58] LABS: BEDSIDEPREGUCG Negative (Negative)
[2025-02-27] MEDS: TRANEXAMIC ACID 1,000 MG/10 ML AMPUL 1000 MG IV PUSH (10:14)
--- NOTE | 2025-02-27 10:40 | S_PTH ---
PATIENT: Ambar Ruiz LOC: [facility] U#:[id number] AGE/SX: 39/F ROOM: RE02/27/[address]: Alida Luna MD : 1985 BED: DIS: 02/27/2025 SPEC #: [id number] RECD: 02/27/25 13:34 STATUS: LEXII REQ #: [id number] VERNON: 02/27/25 10:[address]: Alida Luna DEPT: [facility] Surgical RECD BY: Pretty Campbell ENTERED: 02/27/25 13:35 SP TYPE: Surgical OTHR DR: Judith Walton, PARTITION NOT[employer]ER Tissues: A - Tonsils B - Soft Tissue Procedures: Gross and Microscopic Level 2 Hematoxylin and Eosin Stain Gross and Microscopic Level 3
--- NOTE | 2025-02-27 11:11 | W.PM.PROC2 ---
Procedure Note - Detailed Date of Procedure 02/27/25 Pre-op Diagnosis other lesions oral mucosa, allergic rhinitis Post-op Diagnosis Same Procedure Performed Tonsillectomy Surgeon Alida Luna MD Anesthesia General Indications 1. Chronic tonsillitis 2. Hypertrophy of tonsils 3. Cryptic tonsils 4. Enlarged Uvula Findings Enlarged uvula Description of Procedure The patient was seen in the preoperative area, informed consent was checked and confirmed. The patient was taken to the operating room, sedated and placed under general anesthesia with an endotracheal intubation. Eyes were taped and were prepped and draped in the usual sterile fashion. We started with tonsillectomy procedure. McIvor Mouth retractor was then placed, and the patient was suspended. Then, we proceeded with tonsillectomy, starting on the right side. The tonsil was retracted and dissected along its capsule using Bizact tonsillectomy device . Bleeding was controlled with a suction cautery and silk ties . We proceeded to the Left side. The tonsil retracted and dissected along its capsule using a Bizact tonsillectomy device. Bleeding was controlled with a suction cautery and silk ties. Tonsil fossae were examined for 5 minutes without tension removed and there was no bleeding. McIvor Mouth retractor was then removed and red rubber catheter was removed. The exposed mucosa in the tonsillar fossa was sutured using O2 Vicryl taper needle The enlarged uvula was resected using monopolar cautery needle, the exposed mucosa was sutured using O2 Vicryl taper needle Transferred to PACU? Estimated Blood Loss 5 (ml) Drains No Packing No Pathology Yes (right and left tonsil) Complications None Condition Stable Disposition PACU [facility] Billing Surgery - Charge Forward: Surgery Billing
[2025-02-27] MEDS: fentaNYL CITRATE INJ (*CRX) 100 MCG/2 ML VIAL 25 MCG IV PUSH ×8 (11:47→12:23)
[2025-02-27] MEDS: oxyCODONE HCL (*CRX) 5 MG TAB IR PO (12:45)
== END 2025-02-27 13:35 | disposition home or self-care (01) ==
PROVIDERS: Anesthesiology; PCP Nurse Practitioner Family; Visit Provider Otolaryngology Otolaryngology/Facial Plastic Surgery
PROC: (CPT 42826; principal; 2025-02-27 10:15)
PROC: (CPT 42140; 2025-02-27 10:15)
DX: J35.01 Chronic tonsillitis (principal); F17.290 Nicotine dependence, other tobacco product, uncomplicated; E66.01 Morbid (severe) obesity due to excess calories; Z68.38 Body mass index [BMI] 38.0-38.9, adult
CPT/HCPCS: 42826; 88302; 88304; J0690; A9270; J0330; J1100; J1171; J2003; J2250; J2405; J2704; J3010; J3290; J7120